=== PATIENT | male | born 1950 | race Caucasian/White ===

== ENCOUNTER 2020-08-17 14:55 | Outpatient (REF) | payer BC, SELFPAY ==
--- NOTE | 2020-08-17 | US_ITS ---
EXAMINATION: US RETROPERITONEAL LIMITED (RENAL ONLY) CLINICAL INFORMATION: Nephrolithiasis. COMPARISON: 02/17/2020 TECHNIQUE: Sonographic evaluation of both kidneys. FINDINGS: RIGHT KIDNEY: 11.4 x 6.4 x 5.6 cm (SAG x AP x TRV). The kidney is normal in size, contour, and echogenicity. Renal cortical thickness is normal. No focal parenchymal lesions. No hydronephrosis. There are 2 midpole calculi identified. These measure 1.1 x 0.5 cm and 0.3 x 0.2 cm. The largest stone appears more prominent than on prior. LEFT KIDNEY: 12.5 x 6.1 x 6.2 cm (SAG x AP x TRV). The kidney is normal in size, contour, and echogenicity. Renal cortical thickness is normal. No calculi. No hydronephrosis. There is an exophytic cyst measuring 2.7 x 2.9 x 2.6 cm. There is peripheral nodularity in the cyst. No Doppler vascularity. US/US renal BI IMPRESSION: 1. Nonobstructing right renal calculi with increased prominence of the larger stone. 2. Left renal cyst again noted, similar in size to prior. There is suggestion of peripheral nodularity without Doppler vascularity. This is a change from prior. Continued attention on follow-up. If clinically indicated this could be further evaluated with MRI..
== END 2020-08-17 14:56 | disposition home or self-care (01) ==
LOC: HO.US 14:55
PROVIDERS: PCP Internal Medicine; Visit Provider Urology
DX: N20.0 Calculus of kidney (principal)
CPT/HCPCS: 76775

== ENCOUNTER → 2020-08-21 09:49 | Outpatient (REF) | payer BC, SELFPAY ==
--- NOTE | 2020-08-21 10:00 | CA_ITS ---
Transthoracic Echocardiogram Patient (Last, First, Middle): Dirk Rosado J Gender: Male Date of : 1950 Age: 70 Procedure Date: 08/21/2020 Procedure Type: Transthoracic Echocardiogram Location: OP Height: 182.88 cm Weight: 99.79 kg BSA: 2.22 m2 Heart Rate: bpm BP: 128 / 80 mmHg Propagation Manager: Referring MD: Alex Dueñas MD Symptoms: I49.1 PAC I49.8 ATRIAL ARRHYTHMIA Study Quality: Fair ECG Rhythm: Sinus with PACs Conclusions: - The left ventricular systolic function is normal. The visually estimated ejection fraction is between 60-65%. - There is mild aortic valve regurgitation. Findings Left Ventricle Normal left ventricular cavity size. There is mildly increased left ventricular wall thickness. The left ventricular systolic function is normal. The visually estimated ejection fraction is between 60-65%. There is no evidence of regional wall motion abnormalities. Diastolic function is normal for age. Right Ventricle Normal right ventricular cavity size and systolic function. Atria The left atrium is mildly dilated. The right atrium is normal in size. Aortic Valve There is a normal trileaflet aortic valve. There is no aortic valve stenosis. There is mild aortic valve regurgitation. Mitral Valve The mitral valve appears normal. There is trace mitral valve regurgitation. There is no mitral valve stenosis. Pulmonic Valve The pulmonic valve was not well visualized. Tricuspid Valve Normal tricuspid valve structure. There is trace tricuspid valve regurgitation. The pulmonary artery systolic pressure is normal. Great Vessels The aortic annulus, sinuses of valsalva, and asc aorta are normal in size. Venous The inferior vena cava is mildly dilated and collapses greater than 50% with inspiration. Pericardium/Pleural There is no evidence of pericardial effusion. Prior Study Comparison No significant change compared to prior study dated: 09/19/2019. Measurements 2D Linear Measurements IVSd: 1.27 0.6-0.9/0.6-1.0 cm LVIDd: 5.16 3.9-5.3/4.2-5.9 cm LVIDd Index: 2.32 2.4-3.2/2.2-3.1 cm/m2 LVIDs: 3.40 2.0-3.6 cm LVPWd: 1.26 0.7-1.1 cm Ao Root: 3.30 2.1-3.5 cm LA Diam: 4.10 2.7-3.8/3.0-4.0 cm LAIDs Index: 1.85 1.5-2.3 cm/m2 LV Mass: 330.06 67-162/88-224 g LV Mass Index: 148.68 43-95/49-115 g/m2 LVOT Diam: 2.20 3.0+(-)1.3 cm 2D Systolic Function EF 4C: 67.20 >55% EF 2C: 47.90 >55% EF BiP: 59.90 >55% Mitral Valve MV Pk E: 0.98 MV PK A: 0.85 MV Decel Time: 253.00 E/A: 1.10 E'Lateral: 12.80 E'Medial: 8.41 E/E' Med: 11.60 E/E' Lat: 7.60 PHT: 74.00 MVA PHT: 2.97 Decel Mcminn: 3.85 Aortic Valve AoV Pk Enrique: 1.63 AoV Mn Enrique: 1.10 AoV VTI: 0.38 AoV Pk Grad: 11.00 Aov Mn Grad: 6.00 NEDRA Cont.VTI: 2.74 LVOT LVOT Pk Enrqiue: 1.14 LVOT Mn Enrique: 0.75 LVOT VTI: 0.28 LVOT Pk Grad: 5.00 LVOT Mn Grad: 3.00 LVOT Diam: 2.20 LVOT Area: 3.80 Diastolic Function MV Pk E: 0.98 MV Pk A: 0.85 E/A: 1.10 E'Medial: 8.41 E/E' Med: 11.60 E' Laterial: 12.80 E/E' Lat: 7.60 Tricuspid Valve TR Pk Enrique: 2.06 TR Pk Grad: 17.00 RA Press: 8.00 RVSP: 25.00 Great Vessels Aorta Ao Root-2D: 3.30 2.0-3.7 cm Ao Asc: 3.30 2.1-3.4 cm Pulmonary Valve PV Pk Enrique: 1.09 Peak PV Grad: 5.00 Updated in Other Vendor System with Status of Final Alex Dueñas MD electronically signed on 08/22/2020 1:44:40 PM with status of Final
--- NOTE | 2020-08-21 11:00 | ECG_ITS ---
Hook-up date: 2020-08-21 11:07:00 Duration: 47:59:00 Test Indications: ATRIAL ARRHYTHMIA Medications: 991017 QRS complexes 18 Ventricular ectopics which represent <1 % of total QRS comp. 87799 Supraventricular ectopics which represent 30 % of total QRS comp. * Paced QRS complexs which represent % of total QRS comp. VENTRICULAR ECTOPY 16 Isolated 0 Bigeminal Cycles 1 Couplets 0 Runs 0 Beats in Runs * Beats LONGEST at * BPM at :: -- * Beats FASTEST at * BPM at :: -- SUPRAVENTRICULAR ECTOPY 01001 Isolated 554 Couplets 642 Runs 2312 Beats in Runs 19 Beats LONGEST at 98 BPM at 10:20:42 2020-08-23 3 Beats FASTEST at 250 BPM at 13:18:45 2020-08-22 HEART RATES 77 MIN at 04:17:41 2020-08-23 89 AVG 122 MAX at 17:02:07 2020-08-21 LONGEST RR 1.0480 secs at 06:10:42 2020-08-23 S-T LEVELS Channel 1 - 128 mm at 11:07:00 2020-08-21 - 128 mm at 11:07:00 2020-08-21 Channel 2 - 128 mm at 11:07:00 2020-08-21 - 128 mm at 11:07:00 2020-08-21 Channel 3 - 128 mm at 03:02:61 -- - 128 mm at 03:02:61 Basic rhythm Normal sinus rhythm No long pause or profound bradycardia Frequent Premature atrial complexes , 30% of total beats Multiple short runs of SVEs s/o of PAT Patient did not report any symptoms in the diary Referred By: Alex Dueñas Overread By: MAYRA TORRES MD
== END ==
LOC: HO.CARD 09:49
PROVIDERS: Visit Provider Internal Medicine
DX: I49.1 Atrial premature depolarization (principal); I49.8 Other specified cardiac arrhythmias
CPT/HCPCS: 93225; 93226; 93306

== ENCOUNTER → 2020-09-07 14:50 | Outpatient (BNVA) | payer BC, SELFPAY | PROVIDERS: PCP Internal Medicine; Referring Provider Internal Medicine; Visit Provider Internal Medicine | DX: I49.8 Other specified cardiac arrhythmias (principal); I10 Essential (primary) hypertension | CPT/HCPCS: 93005 ==

== ENCOUNTER → 2020-09-16 15:02 | Outpatient (BNVA) | payer BC, SELFPAY | PROVIDERS: PCP Internal Medicine; Referring Provider Internal Medicine; Visit Provider Urology | DX: Z76.89 Persons encountering health services in other specified circumstances (principal) ==

== ENCOUNTER → 2021-03-08 13:35 | Outpatient (REF) | payer BC, SELFPAY ==
--- NOTE | 2021-03-08 13:38 | ECG_ITS ---
Hook-up date: 2021-03-08 13:43:00 Duration: 24:56:00 Test Indications: ATRIAL ARRHYTHMIAS- Medications: [id number] QRS complexes 18 Ventricular ectopics which represent <1 % of total QRS comp. 52109 Supraventricular ectopics which represent 40 % of total QRS comp. * Paced QRS complexs which represent % of total QRS comp. VENTRICULAR ECTOPY 18 Isolated 0 Bigeminal Cycles 0 Couplets 0 Runs 0 Beats in Runs * Beats LONGEST at * BPM at :: -- * Beats FASTEST at * BPM at :: -- SUPRAVENTRICULAR ECTOPY 82684 Isolated 96 Couplets 117 Runs 415 Beats in Runs 8 Beats LONGEST at 108 BPM at 15:01:51 2021-03-08 3 Beats FASTEST at 176 BPM at 10:48:30 2021-03-09 HEART RATES 74 MIN at 23:08:54 2021-03-08 93 AVG 136 MAX at 19:21:06 2021-03-08 LONGEST RR 0.9760 secs at 23:09:10 2021-03-08 S-T LEVELS Channel 1 - 128 mm at 13:43:00 2021-03-08 - 128 mm at 13:43:00 2021-03-08 Channel 2 - 128 mm at 13:43:00 2021-03-08 - 128 mm at 13:43:00 2021-03-08 Channel 3 - 128 mm at 03:30:21 -- - 128 mm at 03:30:21 Basic rhythm Normal sinus rhythm No long pause or profound bradycardia Frequent Premature atrial complexes , 41% of total beats Multiple short runs of SVE s/o PAT, Longest 8 beats Patient did not report any symptoms in the diary Referred By: Alex Dueñas Overread By: MAYRA TORRES MD
== END ==
LOC: HO.CARD 13:35
PROVIDERS: Visit Provider Internal Medicine
DX: I49.8 Other specified cardiac arrhythmias (principal)
CPT/HCPCS: 93225; 93226

== ENCOUNTER → 2021-03-23 13:55 | Outpatient (BNVA) | payer BC, SELFPAY | PROVIDERS: PCP Internal Medicine; Referring Provider Internal Medicine; Visit Provider Internal Medicine ==

== ENCOUNTER 2021-04-14 12:45 | Outpatient (REF) | payer BC, SELFPAY ==
--- NOTE | ~2021-04-14 | US_ITS ---
EXAMINATION: US RETROPERITONEAL LIMITED (RENAL ONLY) CLINICAL INFORMATION: Calculus of kidney. COMPARISON: Renal ultrasound 08/17/2020 and 02/17/2020. CT abdomen and pelvis 09/25/2019. TECHNIQUE: Real-time imaging of the kidneys. Technically limited study secondary to bowel gas and body habitus. FINDINGS: RIGHT KIDNEY: 9.5 x 4.4 x 5.3 cm (SAG x AP x TRV). The kidney is normal in size, contour, and echogenicity. There may be right renal cortical thinning. There are several echogenic foci in the lower pole with twinkle artifact questionable for small stones. No focal parenchymal lesions. No hydronephrosis. LEFT KIDNEY: 12.4 x 5.7 x 6.4 cm (SAG x AP x TRV). The kidney is normal in size, contour, and echogenicity. There may be left renal cortical thinning. There is a 3 x 3.3 x 3.2 cm cyst in the midpole. Small focus of wall calcification. This is unchanged. No renal calculi or hydronephrosis. US/US renal BI IMPRESSION: Bilateral renal cortical thinning. Question small right renal stones. Left renal cyst.
== END 2021-04-14 12:46 | disposition home or self-care (01) ==
LOC: HO.US 12:45
PROVIDERS: Visit Provider Urology
DX: N20.0 Calculus of kidney (principal)
CPT/HCPCS: 76775

== ENCOUNTER → 2021-05-12 20:22 | Outpatient (REF) | payer BC, SELFPAY | LOC: HO.SL 20:22 | PROVIDERS: Visit Provider Internal Medicine | DX: G47.33 Obstructive sleep apnea (adult) (pediatric) (principal); I49.8 Other specified cardiac arrhythmias | CPT/HCPCS: 95810 ==

== ENCOUNTER → 2021-05-25 14:15 | Outpatient (BNVA) | payer BC, SELFPAY | PROVIDERS: PCP Internal Medicine; Referring Provider Internal Medicine; Visit Provider Internal Medicine | DX: I49.8 Other specified cardiac arrhythmias (principal); I10 Essential (primary) hypertension; Z79.899 Other long term (current) drug therapy | CPT/HCPCS: 93005 ==

== ENCOUNTER → 2021-06-03 14:51 | Outpatient (BNVA) | payer BC, SELFPAY | PROVIDERS: PCP Internal Medicine; Visit Provider Internal Medicine ==

== ENCOUNTER 2021-06-15 13:37 | Outpatient (REF) | payer BC, SELFPAY ==
--- NOTE | 2021-06-15 17:24 | PFT_ITS ---
FLOWS: FEV1 53% of predicted at 1.87 L. FVC 51% of predicted at 2.45 L. FEV1 to FVC ratio of 0.76. No bronchodilator response except in [id number] airways. LUNG VOLUMES: Total lung capacity 54% of predicted at 4.05 L. Residual volume 61% of predicted at 1.57 L. Slow vital capacity 50% of predicted at 2.48 L. Expiratory reserve volume 28% of predicted at 0.40 L. Diffusion capacity is severely decreased, diffusion capacity adjusted being mildly decreased after correction for alveolar ventilation. In comparison to pulmonary function test performed in August of 2017, FEV1 has decreased by 0.40 L; FVC has decreased by 0.40 L; total lung capacity has decreased by 0.37 L; residual volume has been without significant changes; slow vital capacity has decreased by 0.40 L; expiratory reserve volume has decreased by 0.20 L; diffusion capacity has decreased by 2.48 mL/minutes per mmHg. IMPRESSION: Moderate restrictive ventilatory defect with no bronchodilator response, except in [id number] airways. Decreased expiratory reserve volume suggests extrathoracic restriction, likely secondary to abdominal obesity. Decreased diffusion capacity together with restrictive ventilatory defect suggests underlying interstitial lung disease. Clinical correlation is advised. MD MIKIE Diaz/MODL / [id number] MTDD
== END 2021-06-15 13:38 | disposition home or self-care (01) ==
LOC: HO.RESP 13:37
PROVIDERS: PCP Internal Medicine; Visit Provider Internal Medicine
DX: J98.4 Other disorders of lung (principal); G47.34 Idiopathic sleep related nonobstructive alveolar hypoventilation
CPT/HCPCS: 94060; 94727; 94729

== ENCOUNTER → 2021-06-16 13:11 | Outpatient (BNVA) | payer BC, SELFPAY | PROVIDERS: PCP Internal Medicine; Visit Provider Urology ==

== ENCOUNTER → 2021-07-01 13:47 | Outpatient (BNVA) | payer BC, SELFPAY | PROVIDERS: PCP Internal Medicine; Visit Provider Internal Medicine ==

== ENCOUNTER 2021-10-23 08:13 | Outpatient (REF) | payer BC, SELFPAY ==
[2021-10-23 08:46] LABS: MANUAL DIFF FLAG NO
[2021-10-23 09:46] LABS: Basophils Percent Auto 0.4 % (0-2); Eosinophils Absolute Auto 0.1 X10*3/uL (0.0-0.4); Eosinophils Percent Auto 1.8 % (0-4); Hematocrit 44.1 % (42.0-52.0); Hemoglobin 14.6 g/dl (14.0-18.0); Imm Gran Abs Auto 0.06 X10*3/uL (0.00-0.03); Imm Gran Pct Auto 1.2 % (0.0-0.4); Lymphocytes Absolute Auto 1.4 X10*3/uL (1.2-4.9); Lymphocytes Percent Auto 28.1 % (20-40); Mean Corpuscular HGB Conc 33.1 g/dl (31.0-36.0); Mean Corpuscular Volume 96.7 fL (80.0-98.0); Mean Platelet Volume 9.8 fL (9.4-12.4); Monocytes Absolute Auto 0.5 X10*3/uL (0.1-1.2); Monocytes Percent Auto 10.7 % (2-11); Neutrophils Absolute Auto 2.9 x10*3/uL (2.0-8.3); Neutrophils Percent Auto 57.8 % (45-73); Platelet Count 166 X10*3/uL (160-400); Red Blood Count 4.56 X10*6/uL (4.60-5.80); Red Cell Distribution Width 13.9 % (11.0-16.0)
[2021-10-23 09:57] LABS: B Type Natriuretic Peptide 36 pg/mL (<100)
[2021-10-23 10:15] LABS: Appearance Urine CLEAR; Color Urine YELLOW; Glucose Urine UA NEG (NEG); Leukocyte Esterase Urine TRACE (NEG); Nitrite Urine NEG (NEG); PH 5.5 (5.0-8.0); Specific Gravity - Urine 1.025 (1.005-1.025); Urine Blood NEG (NEG); Urine Ketones NEG (NEG); Urine Protein NEG (NEG-TRACE)
[2021-10-23 10:21] LABS: Uric Acid 10.7 mg/dL (3.4-7.0)
[2021-10-23 10:23] LABS: Alanine Aminotransferase 49 U/L (0-40); Alkaline Phosphatase 71 U/L (39-117); Anion Gap 15 (12-20); Aspartate Amino Transferase 35 U/L (5-37); Bilirubin Total 0.9 mg/dL (0.0-1.0); Blood Urea Nitrogen 13 mg/dL (9-16); Calcium 9.6 mg/dL (8.4-10.2); Carbon Dioxide 22 mmol/L (22-29); Chloride 107 mmol/L (96-108); Cholesterol 181 mg/dL; Estimated Glomerular Filt Rate > 60; Free T4 (Free Thyroxine) 1.01 ng/dL (0.71-1.85); Glucose Random 89 mg/dL (60-115); HDL Cholesterol 78 mg/dL; LDL Cholesterol Calculated 79 mg/dl; Potassium 4.8 mmol/L (3.3-5.1); Prostate Specific Antigen Scr 1.85 ng/mL (<0.05-4.0); Sodium 139 mmol/L (135-145); Thyroid Stimulating Hormone 1.42 uIU/mL (0.32-4.0); Total Protein 7.4 g/dL (6.5-8.0); Triglycerides 123 mg/dL
[2021-10-23 10:32] LABS: Hyaline Casts Urine 0-2 /LPF; RBC Urine 0 /HPF (0)
[2021-10-25 09:24] LABS: Folate 7.7 ng/mL (> or = 4.0); Vitamin B12 646 pg/mL (200-900)
== END 2021-10-23 08:14 | disposition home or self-care (01) ==
LOC: HO.LAB 08:13
PROVIDERS: Visit Provider Internal Medicine
DX: Z12.5 Encounter for screening for malignant neoplasm of prostate (principal); E78.00 Pure hypercholesterolemia, unspecified; I10 Essential (primary) hypertension
CPT/HCPCS: 36415; 80053; 80061; 81001; 82607; 82746; 83880; 84153; 84439; 84443; 84550; 85025

== ENCOUNTER 2021-10-28 10:35 | Outpatient (REF) | payer BC, SELFPAY ==
[2021-10-28 11:03] LABS: MANUAL DIFF FLAG NO
[2021-10-28 11:35] LABS: Basophils Percent Auto 0.5 % (0-2); Eosinophils Absolute Auto 0.1 X10*3/uL (0.0-0.4); Eosinophils Percent Auto 1.2 % (0-4); Hematocrit 43.8 % (42.0-52.0); Hemoglobin 14.6 g/dl (14.0-18.0); Imm Gran Abs Auto 0.07 X10*3/uL (0.00-0.03); Imm Gran Pct Auto 1.1 % (0.0-0.4); Lymphocytes Absolute Auto 1.2 X10*3/uL (1.2-4.9); Lymphocytes Percent Auto 19.3 % (20-40); Mean Corpuscular HGB Conc 33.3 g/dl (31.0-36.0); Mean Corpuscular Hemoglobin 32.3 pg (27.0-33.0); Mean Corpuscular Volume 96.9 fL (80.0-98.0); Mean Platelet Volume 10.1 fL (9.4-12.4); Monocytes Absolute Auto 0.8 X10*3/uL (0.1-1.2); Monocytes Percent Auto 12.4 % (2-11); Neutrophils Absolute Auto 4.2 x10*3/uL (2.0-8.3); Neutrophils Percent Auto 65.5 % (45-73); Platelet Count 177 X10*3/uL (160-400); Red Blood Count 4.52 X10*6/uL (4.60-5.80); Red Cell Distribution Width 14.6 % (11.0-16.0); White Blood Count 6.4 X10*3/uL (4.8-10.8)
[2021-10-28 11:42] LABS: Prothrombin Time 11.1 SEC (9.9-13.0)
[2021-10-28 11:44] LABS: Partial Thromboplastin Time 41.2 SEC (24.1-38.0)
[2021-10-28 12:06] LABS: Alanine Aminotransferase 44 U/L (0-40); Albumin Level 3.8 g/dL (3.5-5.0); Alkaline Phosphatase 67 U/L (39-117); Anion Gap 12 (12-20); Aspartate Amino Transferase 39 U/L (5-37); Blood Urea Nitrogen 15 mg/dL (9-16); Calcium 9.4 mg/dL (8.4-10.2); Carbon Dioxide 24 mmol/L (22-29); Chloride 107 mmol/L (96-108); Estimated Glomerular Filt Rate > 60; Glucose Random 86 mg/dL (60-115); Potassium 4.3 mmol/L (3.3-5.1); Sodium 139 mmol/L (135-145); Total Protein 7.2 g/dL (6.5-8.0)
[2021-10-29 13:00] LABS: Factor VIII Activity 29 % normal (50-180)
[2021-11-01 13:02] LABS: Alpha Fetoprotein 3.3 ng/mL (<6.1)
[2021-11-03 20:26] LABS: HCV Log PCR <1.18 log IU/mL; HepC Viral Load <15 IU/mL
== END 2021-10-28 10:36 | disposition home or self-care (01) ==
LOC: HO.LAB 10:35
PROVIDERS: Absent Provider Internal Medicine Medical Oncology; PCP Internal Medicine; Visit Provider Internal Medicine
DX: D66 Hereditary factor VIII deficiency (principal); B18.2 Chronic viral hepatitis C
CPT/HCPCS: 36415; 80053; 82105; 85025; 85240; 85610; 85730; 87522

== ENCOUNTER → 2021-11-15 12:37 | Outpatient (BNVA) | payer BC, SELFPAY | PROVIDERS: PCP Internal Medicine; Referring Provider Internal Medicine; Visit Provider Surgery ==

== ENCOUNTER → 2021-11-23 12:52 | Outpatient (BNVA) | payer BC, SELFPAY | PROVIDERS: PCP Internal Medicine; Referring Provider Internal Medicine; Visit Provider Internal Medicine ==

== ENCOUNTER 2021-12-06 10:12 | Outpatient (REF) | payer BC, SELFPAY ==
--- NOTE | ~2021-12-06 | US_ITS ---
EXAMINATION: US ABDOMEN COMPLETE CLINICAL INFORMATION: Liver fibrosis. History of hepatitis C. COMPARISON: Renal ultrasound 04/14/2021. CT abdomen and pelvis 09/25/2019. Ultrasound abdomen 01/04/2016. TECHNIQUE: Real-time imaging of the abdominal viscera. FINDINGS: PANCREAS: The head and body appear normal. The tail is obscured by bowel gas. ABDOMINAL AORTA: Obscured by bowel gas. INFERIOR VENA CAVA: Visualized portions are normal. LIVER: The liver is small and nodular. There is diffuse increased liver parenchymal echogenicity, consistent with hepatic steatosis. There is a 2.1 cm hypoechoic lesion adjacent to the gallbladder which was not seen on the prior imaging. This may represent focal fatty sparing but because it is newly apparent the possibility of a liver mass cannot be excluded There is no intrahepatic biliary duct dilatation seen. GALLBLADDER: Cholelithiasis without evidence of cholecystitis. COMMON BILE DUCT: Obscured by bowel gas. RIGHT KIDNEY: Normal. No hydronephrosis. No renal calculi or focal parenchymal lesions. The kidney measures 11.0 cm in maximum dimension. LEFT KIDNEY: 2.4 cm cyst with thin calcified septation in the mid kidney which is unchanged compared to prior CT scan. No hydronephrosis or renal calculi. The kidney measures 12.6 cm in maximum dimension. SPLEEN: Normal. The spleen measures 12.0 cm in maximum dimension. FREE FLUID: None. US/US abdomen complete IMPRESSION: Cirrhotic liver with findings consistent with steatosis. New 2.1 cm hypoechoic lesion adjacent to the gallbladder which was not seen on prior imaging. It may represent focal fatty sparing but cannot exclude a liver mass in the setting of cirrhosis. Recommend further evaluation with liver protocol multiphasic CT or MRI abdomen without and with contrast.
== END 2021-12-06 10:13 | disposition home or self-care (01) ==
LOC: HO.US 10:12
PROVIDERS: PCP Internal Medicine; Visit Provider Internal Medicine
DX: K74.00 Hepatic fibrosis, unspecified (principal); Z86.19 Personal history of other infectious and parasitic diseases
CPT/HCPCS: 76700

== ENCOUNTER → 2021-12-14 08:12 | Outpatient (BNVA) | payer BC, SELFPAY | PROVIDERS: PCP Internal Medicine; Visit Provider Urology | DX: N20.0 Calculus of kidney (principal); N40.0 Benign prostatic hyperplasia without lower urinary tract symptoms | CPT/HCPCS: Q3014 ==

== ENCOUNTER 2021-12-14 11:46 | Outpatient (REF) | payer BC, SELFPAY | END 2021-12-14 11:47 | disposition home or self-care (01) | LOC: HO.MDS 11:46 | PROVIDERS: Visit Provider Internal Medicine Medical Oncology | DX: D66 Hereditary factor VIII deficiency (principal) | CPT/HCPCS: 96365; J2597 ==

== ENCOUNTER 2021-12-21 10:45 | Outpatient (REF) | payer BC, SELFPAY ==
--- NOTE | ~2021-12-21 | MR_ITS ---
EXAMINATION: MR ABDOMEN WITHOUT AND WITH CONTRAST CLINICAL INFORMATION: Hepatitis C. Followup liver lesion seen on ultrasound. COMPARISON: Previous abdominal ultrasound November [address] of the abdomen and pelvis September 2019 TECHNIQUE: MR abdomen was performed without and with use of 10 mL intravenous Gadavist gadolinium contrast. Postcontrast images are performed in multiphase dynamic sequences. Imaging was performed in 3 planes. FINDINGS: LUNG BASES: The visualized lung bases are unremarkable. LIVER, GALLBLADDER, AND BILIARY TREE: The liver is normal in size and shape. There is slight signal loss in the liver on [id number] sequences suggestive of mild fatty infiltration. No focal liver lesion is seen. There are gallstones in the gallbladder. There is no intrahepatic or extrahepatic biliary duct dilatation. PANCREAS: Unremarkable. SPLEEN: Upper normal in size measuring 12.5 cm in length. ADRENAL GLANDS: Normal. KIDNEYS AND URETERS: There is a 3 cm left renal cyst. The kidneys are otherwise unremarkable. GASTROINTESTINAL TRACT: No bowel obstruction. No ascites or fluid collection. ABDOMINAL WALL: There is a large right lateral abdominal wall hernia containing bowel. LYMPH NODES: No lymphadenopathy. VASCULAR: Unremarkable. OSSEOUS STRUCTURES: There are degenerative changes of the spine. There are old lower thoracic vertebral body compression fractures. This appears similar to September [address] scan. MR/MR abdomen wo/w con IMPRESSION: Mild fatty infiltration of the liver. No liver lesion seen. Gallstones. Left renal cysts. Large right lateral abdominal wall hernia containing bowel.
[2021-12-21 10:43] LABS: Blood Urea Nitrogen 10 mg/dL (9-16); Estimated Glomerular Filt Rate > 60
== END 2021-12-21 10:46 | disposition home or self-care (01) ==
LOC: HO.MRI 10:45
PROVIDERS: Visit Provider Internal Medicine
DX: R93.2 Abnormal findings on diagnostic imaging of liver and biliary tract (principal); Z86.19 Personal history of other infectious and parasitic diseases
CPT/HCPCS: 36415; 74183; 82565; 84520; A9585

== ENCOUNTER → 2022-01-03 13:53 | Outpatient (BNVA) | payer BC, SELFPAY | PROVIDERS: PCP Internal Medicine; Visit Provider Internal Medicine | DX: R06.00 Dyspnea, unspecified (principal); J98.4 Other disorders of lung; G47.34 Idiopathic sleep related nonobstructive alveolar hypoventilation; E66.9 Obesity, unspecified ==

== ENCOUNTER → 2022-04-05 07:04 | Outpatient (REF) | payer BC, SELFPAY ==
--- NOTE | 2022-04-05 07:08 | HM_ITS ---
Conclusion: 1. Patient was monitored for total period of 3 days and 3 hours 2. Baseline rhythm was normal sinus rhythm with average heart of 89 beats per minute 3. No significant pauses or bradycardia noted 4. Three episodes of short burst of supraventricular tachycardia with longest lasting 7 beats 5. Total of 504 PVCs accounting for 0.13% of total beats accounting for occasional PVCs 6. No patient reported events MTDD
== END ==
LOC: HO.CARD 07:04
PROVIDERS: PCP Internal Medicine; Visit Provider Internal Medicine
DX: I49.8 Other specified cardiac arrhythmias (principal)
CPT/HCPCS: 93242

== ENCOUNTER 2022-05-23 08:44 | Outpatient (REF) | payer BC, SELFPAY ==
[2022-05-23 09:00] LABS: MANUAL DIFF FLAG NO
[2022-05-23 09:25] LABS: Basophils Percent Auto 0.7 % (0-2); Eosinophils Absolute Auto 0.2 X10*3/uL (0.0-0.4); Eosinophils Percent Auto 3.1 % (0-4); Hematocrit 42.8 % (42.0-52.0); Hemoglobin 14.4 g/dl (14.0-18.0); Imm Gran Abs Auto 0.04 X10*3/uL (0.00-0.03); Imm Gran Pct Auto 0.7 % (0.0-0.4); Lymphocytes Absolute Auto 1.4 X10*3/uL (1.2-4.9); Lymphocytes Percent Auto 24.4 % (20-40); Mean Corpuscular HGB Conc 33.6 g/dl (31.0-36.0); Mean Corpuscular Hemoglobin 32.5 pg (27.0-33.0); Mean Corpuscular Volume 96.6 fL (80.0-98.0); Mean Platelet Volume 9.6 fL (9.4-12.4); Monocytes Absolute Auto 0.6 X10*3/uL (0.1-1.2); Monocytes Percent Auto 10.3 % (2-11); Neutrophils Absolute Auto 3.5 x10*3/uL (2.0-8.3); Neutrophils Percent Auto 60.8 % (45-73); Platelet Count 143 X10*3/uL (160-400); Red Blood Count 4.43 X10*6/uL (4.60-5.80); Red Cell Distribution Width 14.1 % (11.0-16.0); White Blood Count 5.8 X10*3/uL (4.8-10.8)
[2022-05-23 09:38] LABS: Appearance Urine Clear; Color Urine Dark Yellow; Glucose Urine UA Negative (Negative); Leukocyte Esterase Urine Negative (Negative); Nitrite Urine Negative (Negative); PH 5.5 (5.0-8.0); Specific Gravity - Urine 1.015 (1.005-1.025); Urine Blood Negative (Negative); Urine Ketones Trace mg/dL (Negative); Urine Protein Negative (Neg-Trace)
[2022-05-23 09:44] LABS: Bacteria Urine None Seen (None Seen); Hyaline Casts Urine 0-2 /LPF (0-2); RBC Urine 0-2 /HPF (0-2); Squamous Epithelial Cell Urine 0-2 /HPF (0-2); WBC Urine 0-5 /HPF (0-5)
[2022-05-23 09:51] LABS: Alanine Aminotransferase 41 U/L (0-40); Alkaline Phosphatase 55 U/L (39-117); Anion Gap 18 (12-20); Aspartate Amino Transferase 42 U/L (5-37); Bilirubin Total 1.2 mg/dL (0.0-1.0); Blood Urea Nitrogen 11 mg/dL (9-16); Calcium 9.3 mg/dL (8.4-10.2); Carbon Dioxide 23 mmol/L (22-29); Chloride 105 mmol/L (96-108); Cholesterol 182 mg/dL; Estimated Glomerular Filt Rate > 60; Glucose Random 89 mg/dL (60-115); HDL Cholesterol 87 mg/dL; LDL Cholesterol Calculated 78 mg/dl; Potassium 4.5 mmol/L (3.3-5.1); Sodium 141 mmol/L (135-145); Total Protein 7.2 g/dL (6.5-8.0); Triglycerides 85 mg/dL
[2022-05-23 10:10] LABS: Free T4 (Free Thyroxine) 0.97 ng/dL (0.71-1.85); Prostate Specific Antigen Scr 1.75 ng/mL (<0.05-4.0); Thyroid Stimulating Hormone 1.58 uIU/mL (0.32-4.0)
[2022-05-23 10:26] LABS: Folate 5.8 ng/mL (> or = 4.0); Vitamin B12 650 pg/mL (200-900)
== END 2022-05-23 08:45 | disposition home or self-care (01) ==
LOC: HO.LAB 08:44
PROVIDERS: PCP Internal Medicine; Visit Provider Internal Medicine
DX: Z12.5 Encounter for screening for malignant neoplasm of prostate (principal); I49.8 Other specified cardiac arrhythmias; I10 Essential (primary) hypertension; E66.9 Obesity, unspecified; E78.00 Pure hypercholesterolemia, unspecified
CPT/HCPCS: 36415; 80053; 80061; 81001; 82607; 82746; 84153; 84439; 84443; 85025; 93005

== ENCOUNTER 2022-06-02 09:50 | Outpatient (REF) | payer BC, SELFPAY ==
--- NOTE | ~2022-06-02 | US_ITS ---
EXAMINATION: US RETROPERITONEAL LIMITED (RENAL ONLY) CLINICAL INFORMATION: Calculus of kidney. COMPARISON: MRI abdomen 12/21/2021. Ultrasound abdomen complete 12/06/2021. Renal ultrasound 04/14/2021. TECHNIQUE: Real-time imaging of the kidneys. FINDINGS: RIGHT KIDNEY: 11.1 x 6.0 x 5.8 cm (SAG x AP x TRV). The kidney is normal in size, contour, and echogenicity. There is renal cortical thinning present. No focal parenchymal lesions or hydronephrosis. There are numerous echogenic foci some which appear to be related to vessel artifact but some contain twinkle artifact consistent with renal calculi. In the midpole region there appears be a 4 mm nonobstructing calculus. Within the midpole there also appears to be a 9 mm nonobstructing calculus. LEFT KIDNEY: 12.1 x 6.4 x 6.0 cm (SAG x AP x TRV). The kidney is normal in size, contour, and echogenicity. There is renal cortical thinning present. No hydronephrosis. Within the lower pole there is a 4 mm nonobstructing calculus. Within the interpolar region there is a 2.3 x 2.7 x 2.6 cm cyst with thin wall calcification. No internal vascularity is appreciated. This has the appearance of a Bosniak 2 cyst. US/US renal BI IMPRESSION: Bilateral cortical thinning. Bilateral nephrolithiasis without obstructive uropathy. Bosniak 2 left renal cyst.
== END 2022-06-02 09:51 | disposition home or self-care (01) ==
LOC: HO.US 09:50
PROVIDERS: Visit Provider Urology
DX: N20.0 Calculus of kidney (principal)
CPT/HCPCS: 76775

== ENCOUNTER 2022-07-18 12:46 | Emergency (ER) | payer BC, SELFPAY ==
--- NOTE | ~2022-07-18 | US_ITS ---
EXAMINATION: US VENOUS ULTRASOUND WITH DOPPLER LOWER EXTREMITY, RIGHT CLINICAL INFORMATION: Swelling, right leg pain from knee distally. Assess for occult DVT. COMPARISON: Right leg venous ultrasound 07/15/2017, 07/09/2017 TECHNIQUE: Ultrasound of the deep veins is performed from the hip to the calf with compression sonography and color and pulse Doppler assessment. Spectral analysis with color-flow imaging is performed. FINDINGS: There is normal venous compression and respiratory variation and augmented flow. The visualized common femoral vein, superficial femoral vein, profunda femoral vein, popliteal vein, and the trifurcation region shows no evidence of deep venous thrombosis. There is a popliteal fossa cyst measuring 4.9 x 0.8 x 3.6 cm. Prior measurements are 4.4 x 1.6 x 2.2 cm.. There is a smaller septated cyst in the calf slightly more distal again noted measuring 3.5 x 1.4 x 2.1 cm. Prior measurements 3.7 x 1.6 x 2.8 cm. US/US venous duplex LE RT IMPRESSION: 1. No DVT demonstrated in the right lower extremity. 2. Popliteal fossa cyst 4.9 x 0.8 x 3.6 cm. Prior measurements 4.4 x 1.6 x 2.2 cm. 3. Smaller septated cyst 3.5 x 1.4 x 2.1 cm. Prior measurements 3.7 x 1.6 x 2.8 cm.
[2022-07-18 14:15] VITALS: BP 149/88; PULSE 83; RESP 18; TEMP 36.8; O2SAT 95; BMI 29.8
[2022-07-18 14:52] LABS: MANUAL DIFF FLAG NO
[2022-07-18 14:56] LABS: Basophils Percent Auto 0.6 % (0-2); Eosinophils Absolute Auto 0.1 X10*3/uL (0.0-0.4); Eosinophils Percent Auto 1.7 % (0-4); Hematocrit 39.6 % (42.0-52.0); Hemoglobin 13.6 g/dl (14.0-18.0); Imm Gran Abs Auto 0.05 X10*3/uL (0.00-0.03); Imm Gran Pct Auto 0.8 % (0.0-0.4); Lymphocytes Absolute Auto 1.1 X10*3/uL (1.2-4.9); Lymphocytes Percent Auto 17.2 % (20-40); Mean Corpuscular HGB Conc 34.3 g/dl (31.0-36.0); Mean Corpuscular Hemoglobin 33.7 pg (27.0-33.0); Mean Corpuscular Volume 98.3 fL (80.0-98.0); Mean Platelet Volume 9.2 fL (9.4-12.4); Monocytes Absolute Auto 0.8 X10*3/uL (0.1-1.2); Monocytes Percent Auto 12.1 % (2-11); Neutrophils Absolute Auto 4.4 x10*3/uL (2.0-8.3); Neutrophils Percent Auto 67.6 % (45-73); Platelet Count 202 X10*3/uL (160-400); Red Blood Count 4.03 X10*6/uL (4.60-5.80); Red Cell Distribution Width 14.2 % (11.0-16.0); White Blood Count 6.5 X10*3/uL (4.8-10.8)
[2022-07-18 15:07] LABS: Anion Gap 17 (12-20); Blood Urea Nitrogen 10 mg/dL (9-16); Calcium 9.4 mg/dL (8.4-10.2); Carbon Dioxide 23 mmol/L (22-29); Chloride 103 mmol/L (96-108); Estimated Glomerular Filt Rate > 60; Glucose Random 89 mg/dL (60-115); Potassium 4.8 mmol/L (3.3-5.1); Sodium 138 mmol/L (135-145)
[2022-07-18 15:16] LABS: Prothrombin Time 11.8 SEC (10.0-13.1)
--- NOTE | 2022-07-18 17:02 | ED_ITS ---
HPI - Extremity Problem General Chief complaint: Extremity Problem Stated complaint: R leg inj Time Seen by Provider: 07/18/22 16:39 Source: patient Mode of arrival: ambulatory Limitations: no limitations History of Present Illness HPI Narrative: Patient comes to the emergency room complaining of right lower extremity pain and swelling for about 1 week. Patient states that right before his leg started turning erythematous and started becoming swollen, patient sustained a fall. Patient states that he fell forward. Patient has multiple bruises from the fall but he has no other injuries. Patient had a few abrasions on the forehead but they healed well. Patient denies any fever, no chills, no chest pain or shortness of breath. Related Data Home Medications Medication Instructions Recorded Confirmed calcium carbonate 600 mg-vitamin 1 tab PO DAILY 08/03/20 06/17/22 D3 5 mcg (200 unit) tablet (Calcium 600 + D(3)) cyanocobalamin (vitamin B-12) 250 250 mcg PO DAILY 08/03/20 06/17/22 mcg lozenges lisinopril 5 mg tablet 5 mg PO DAILY 08/03/20 06/17/22 Previous Rx's Medication Instructions Recorded nystatin 100,000 unit/gram topical See Rx Instructions topical BID 10/21/21 powder #60 grams lorazepam 0.5 mg tablet 0.5 mg PO BEDTIME PRN sedation 30 04/20/22 days #14 tabs potassium citrate 10 mEq (1,080 20 meq PO BID 90 days #360 tabs 06/17/22 mg) tablet,extended release pyridoxine (vitamin B6) 100 mg 100 mg PO DAILY 90 days #90 tabs 06/17/22 tablet cephalexin 500 mg capsule 500 mg PO BID #13 caps 07/18/22 doxycycline hyclate 100 mg capsule 100 mg PO BID #13 caps 07/18/22 metoprolol succinate 25 mg 25 mg PO DAILY #90 tabs 07/18/22 tablet,extended release 24 hr tramadol 50 mg tablet 50 mg PO BID PRN pain #7 tabs 07/18/22 Allergies Allergy/AdvReac Type Severity Reaction Status Date / Time No Known Allergies Allergy Verified 06/17/22 11:12 Review of Systems Review of Systems: Constitutional : No Weight loss, No Fever, No Chills, No Night Sweats, No Fatigue, No Malaise ENT/Mouth : No Hearing loss, No Ear Pain, No Nasal Congestion, No Sinus Pain, No Hoarseness, No sore throat, No Rhinorrhea, No Swallowing Difficulty Eyes: No Eye Pain, No Swelling, No Redness, No Foreign Body, No Discharge, No Vision Changes Cardiovascular : No Chest Pain, No SOB, No Dyspnea on Exertion, No Orthopnea, No Edema, No Palpitations Respiratory : No Cough, No Sputum, No Wheezing, No Smoke Exposure, No Dyspnea Gastrointestinal : No Nausea, No Vomiting, No Diarrhea, No Constipation, No abdominal Pain, No Hematochezia, No Melena Genitourinary : no irregular bleeding, No Dysuria, No Urinary Frequency, No Hematuria, No Urinary Incontinence, No Urgency, No Flank Pain, No Urinary Flow Changes, No Hesitancy Musculoskeletal : No joint pain, No Myalgias, No Joint Swelling Skin : Complaining of right lower extremity pain and swelling from ankle to the knee Neuro : No Weakness, No Numbness, No Paresthesias, No Loss of Consciousness, No Dizziness, No Headache Psych : No Anxiety/Panic, No Depression, No SI/HI/AH/VH, No Social Issues, Heme/Lymph: No Bruising, No Bleeding,No Lymphadenopathy Endocrine : No Polyuria, No Polydipsia, No Temperature Intolerance PMFSH Past Medical History Medical History Atrial arrhythmia Loja cyst BPH (benign prostatic hyperplasia) Cholelithiasis Crohn's disease Dyspnea on exertion Essential hypertension Gout Hemophilia History of cataract History of hepatitis C Nocturnal hypoxemia Obesity (BMI 30-39.9) Obesity (BMI 30-39.9) Osteopenia Parastomal hernia Peripheral vascular disease Renal stones Restrictive lung disease Thrombocytopenia Surgical History H/O tooth extraction H/O wrist surgery History of appendectomy History of cataract surgery History of urethral stent Family History Family History Father Prostate cancer Mother Diabetes Maternal Grandfather Factor VIII deficiency hemophilia Social History Social History Household Members: Spouse Housing: House Are you a primary assisted living care manager to a significant other at home: No Do you presently have visiting nurse or other home services: No Alcohol intake: never Patient Tobacco Use Status: Never used Tobacco e-Cigarette/Vaping Use: Never Used Second Hand Smoke Exposure: No Advance Directives: No Advance Directives Information Provided: No service: No Current occupational status: retired Cognitive needs: No Hearing needs: No Vision needs: Yes Physical Exam Vital Signs: Vital Signs: Last Vital Signs Temp 98.2 F 07/18/22 14:15 Pulse 83 07/18/22 14:15 Resp 18 07/18/22 14:15 BP 149/88 H 07/18/22 14:15 Pulse Ox 95 07/18/22 14:15 O2 Del Method 07/18/22 14:15 BMI result Body Mass Index 29.8 Const: Other: Appearance: Alert. Oriented X3. No acute distress. Eyes: Pupils equal, round and reactive to light. ENT: Pharynx normal. Neck: Normal inspection. Neck supple. No lymph nodes noted. No crepitus CVS: Normal heart rate and rhythm. Pulses normal. Normal S1 and S2 Respiratory: No respiratory distress. Breath sounds normal. No Wheezing. No rales Abdomen: Soft and nontender. No rigidity. No distention. Skin: Skin warm and dry. Normal skin color. Normal skin turgor. Extremities: Patient has bilateral pitting edema +2, right lower extremity is more swollen than the right, [id number] erythema goes from the ankle to below the right knee, no oozing. Neuro: Oriented X 3. No motor deficit. No sensory deficit. Moving all extremities. No slurred speech. CN 2 through 12 grossly intact Psych: calm, cooperative, normal affect Course Course Course Narrative: Venous of blood cultures done is negative for DVT. Patient is aware of the Loja cyst that has been seen on ultrasound previously. Patient's white blood cell count is within normal limits, normal blood pressure, no fever, not tachycardic. Sepsis is not suspected. I discussed with the patient that he likely has cellulitis. Patient was given the 1st dose of Keflex and doxycycline in the ED. I discussed with the patient that if the p.o. antibiotic does not work or if there are any worsening changes, he needs to return immediately to the emergency room. MDM - Extremity (Nontraumatic) Lab Data Result diagrams: 07/18/22 14:46 07/18/22 14:46 Labs: Lab Results 07/18/22 07/18/22 07/18/22 Range/Units 14:46 14:46 14:46 WBC 6.5 (4.8-10.8) X10*3/uL RBC 4.03 L (4.60-5.80) X10*6/uL Hgb 13.6 L (14.0-18.0) g/dl Hct 39.6 L (42.0-52.0) % MCV 98.3 H (80.0-98.0) fL MCH 33.7 H (27.0-33.0) pg MCHC 34.3 (31.0-36.0) g/dl RDW 14.2 (11.0-16.0) % Plt Count 202 D (160-400) X10*3/uL MPV 9.2 L (9.4-12.4) fL Immature Gran % (Auto) 0.8 H (0.0-0.4) % Neut % (Auto) 67.6 (45-73) % Lymph % (Auto) 17.2 L (20-40) % Harlan % (Auto) 12.1 H (2-11) % Eos % (Auto) 1.7 (0-4) % Baso % (Auto) 0.6 (0-2) % Lymph # (Auto) 1.1 L (1.2-4.9) X10*3/uL Harlan # (Auto) 0.8 (0.1-1.2) X10*3/uL Eos # (Auto) 0.1 (0.0-0.4) X10*3/uL Baso # (Auto) 0.0 (0.0-0.2) X10*3/uL Abs Immat Gran (auto) 0.05 H (0.00-0.03) X10*3/uL Absolute Neuts (auto) 4.4 (2.0-8.3) x10*3/uL Absolute Nucleated RBC 0.000 (0.0-0.012) X10*3/uL Nucleated RBC % (auto) 0.0 (0.0-0.2) /100WBC PT 11.8 (10.0-13.1) SEC INR 1.0 (0.9-1.1) APTT 43.0 H (26.0-36.4) SEC Sodium 138 (135-145) mmol/L Potassium 4.8 (3.3-5.1) mmol/L Chloride 103 (96-108) mmol/L Carbon Dioxide 23 (22-29) mmol/L Anion Gap 17 (12-20) BUN 10 (9-16) mg/dL Creatinine 1.05 (0.5-1.4) mg/dL Estim Creat Clear Calc 80.0 Estimated GFR > 60 Random Glucose 89 (60-115) mg/dL Calcium 9.4 (8.4-10.2) mg/dL Imaging Data Venous US: Radiologist's impression: TECHNIQUE: Ultrasound of the deep veins is performed from the hip to the calf with compression sonography and color and pulse Doppler assessment. Spectral analysis with color-flow imaging is performed. FINDINGS: There is normal venous compression and respiratory variation and augmented flow. The visualized common femoral vein, superficial femoral vein, profunda femoral vein, popliteal vein, and the trifurcation region shows no evidence of deep venous thrombosis. There is a popliteal fossa cyst measuring 4.9 x 0.8 x 3.6 cm. Prior measurements are 4.4 x 1.6 x 2.2 cm.. There is a smaller septated cyst in the calf slightly more distal again noted measuring 3.5 x 1.4 x 2.1 cm. Prior measurements 3.7 x 1.6 x 2.8 cm. US/US venous duplex LE RT IMPRESSION: 1. No DVT demonstrated in the right lower extremity. 2. Popliteal fossa cyst 4.9 x 0.8 x 3.6 cm. Prior measurements 4.4 x 1.6 x 2.2 cm. 3. Smaller septated cyst 3.5 x 1.4 x 2.1 cm. Prior measurements 3.7 x 1.6 x 2.8 cm. Discharge Plan Discharge Clinical Impression: Cellulitis of right lower leg Patient Disposition: Home, Self-Care Instructions: Cellulitis (ED) Additional Instructions: Please follow-up with your primary care physician tomorrow. If you have any worsening or new symptoms, please return to the emergency room or call 911 Prescriptions: New cephalexin 500 mg capsule 500 mg PO BID Qty: 13 0RF doxycycline hyclate 100 mg capsule 100 mg PO BID Qty: 13 0RF tramadol 50 mg tablet 50 mg PO BID PRN (Reason: pain) Qty: 7 0RF No Action potassium citrate 10 mEq (1,080 mg) tablet extended release 20 meq PO BID 90 Days Qty: 360 3RF metoprolol succinate 25 mg tablet extended release 24 hr 25 mg PO DAILY Qty: 90 3RF lisinopril 5 mg tablet 5 mg PO DAILY calcium carbonate-vitamin D3 [Calcium 600 + D(3)] 600 mg(1,500mg) -200 unit tablet 1 tab PO DAILY cyanocobalamin (vitamin B-12) 250 mcg lozenge 250 mcg PO DAILY nystatin 100,000 unit/gram powder See Rx Instructions topical BID Qty: 60 11RF Rx Instructions: apply to ileostomy site topical 2 times a day; lorazepam 0.5 mg tablet 0.5 mg PO BEDTIME PRN (Reason: sedation) 30 Days Qty: 14 0RF pyridoxine (vitamin B6) 100 mg tablet 100 mg PO DAILY 90 Days Qty: 90 3RF
[2022-07-18] MEDS: cephALEXin 500 MG CAPSULE PO (17:11)
--- NOTE | 2022-07-18 17:15 | PC.NURSE ---
First dose of ab administered to pt. Discharge instructions provided to pt. Pt verbalizes understanding.
== END 2022-07-18 17:16 | disposition home or self-care (01) ==
PROVIDERS: Emergency Provider Emergency Medicine; PCP Internal Medicine
DX: L03.115 Cellulitis of right lower limb (principal); M79.661 Pain in right lower leg; R60.0 Localized edema; M71.21 Synovial cyst of popliteal space [Baker], right knee; I10 Essential (primary) hypertension; Z79.899 Other long term (current) drug therapy
CPT/HCPCS: 36415; 80048; 85025; 85610; 85730; 93971; 99283; 99284

== ENCOUNTER 2022-08-03 11:07 | Inpatient (IN) | payer BC, MEDICARE, SELFPAY ==
--- NOTE | ~2022-08-03 | US_ITS ---
EXAMINATION: US VENOUS ULTRASOUND WITH DOPPLER LOWER EXTREMITY, RIGHT CLINICAL INFORMATION: Right leg pain and swelling COMPARISON: 07/18/2022 TECHNIQUE: Ultrasound of the deep veins is performed from the hip to the calf with compression sonography and color and pulse Doppler assessment. Spectral analysis with color-flow imaging is performed. FINDINGS: There is normal venous compression and respiratory variation and augmented flow. The visualized common femoral vein, superficial femoral vein, profunda femoral vein, popliteal vein, and the trifurcation region shows no evidence of deep venous thrombosis. Two Loja's cysts are present measuring 4.5 x 1.1 x 1.3 cm and 2.2 x 0.6 x 1.7 cm . If the patient's symptoms persist, followup ultrasound in 5 days 7 days might be of value to exclude proximal propagation from a non-visualized calf vein. US/US venous duplex LE RT IMPRESSION: No DVT demonstrated in the right lower extremity. Popliteal cysts as described above. No interval change when compared to 07/18/2022.
--- NOTE | ~2022-08-03 | XR_ITS ---
EXAMINATION: XR KNEE, RIGHT CLINICAL INFORMATION: Right knee pain status post fall, weeks ago. COMPARISON: None TECHNIQUE: Four views of the right knee. FINDINGS: Mild tricompartmental degenerative joint changes are seen with joint space narrowing most pronounced in the medial femoral-tibial compartment. There is no acute fracture, dislocation or joint effusion. Mild prepatellar soft tissue swelling. Moderate to severe atherosclerosis. XR/XR knee RT 4V IMPRESSION: Mild degenerative joint changes most consistent with osteoarthritis. No acute abnormality.
--- NOTE | ~2022-08-03 | CT_ITS ---
EXAMINATION: CT ANGIOGRAM BILATERAL CLINICAL INFORMATION: Right lower extremity pain after trauma COMPARISON: None TECHNIQUE: 80 mL Omnipaque 350 intravenous contrast was utilized. Multidetector helical imaging was performed through the bilateral lower extremities per CTA protocol. Coronal and sagittal reformatted images were created along with MIP images. This CT examination was performed using dose optimization techniques as appropriate, variously including the following: *Automated exposure control *Adjustment of mA and/or kV according to patient size (this includes techniques or standardized protocols for targeted exams where dose is matched to indication/reason for exam; i.e. extremities or head) *Use of iterative reconstruction technique DLP: 549 mGy-cm FINDINGS: Abdominal vasculature: Included portion of the aorta is unremarkable. Imaged portion of the superior mesenteric artery is patent. Bilateral renal arteries are patent. Inferior mesenteric artery appears patent proximally though is not well opacified beginning shortly beyond its origin. Right lower extremity vasculature: The common, internal, and external iliac arteries are patent with peripheral calcification most prominently along the internal carotid artery. Right common femoral artery is patent. There is circumferential calcification along much of the deep femoral artery branches, though these appear patent. Superficial femoral artery appears patent, with moderate to severe circumferential calcification. Popliteal artery is patent with moderate peripheral calcification. There is limited evaluation for patency of the runoff vessels in the calf due to significant circumferential calcification in the small caliber of the vessels. There does appear to be opacification of vessels in the foot, suggesting patent anterior and posterior tibial arteries. The peroneal artery appears diminutive as it reaches the ankle and is not adequately assessed distally. Left lower extremity vasculature: Patent common, internal, and external iliac arteries with peripheral calcification most prominently along the external iliac artery. Common femoral artery is patent. Moderate circumferential calcification along the deep femoral artery branches, though these do appear patent. Circumferential calcification noted along much of the superficial femoral artery, though patency appears preserved. Popliteal artery appears patent with moderate circumferential calcification. There is extensive circumferential calcification along the calf vessels which limits evaluation for patency. There is suspected patency of vessels in the foot suggesting that there is preservation of flow in the anterior and posterior tibial arteries. The peroneal artery is diminutive and not well assessed as it approaches the ankle. Nonvascular structures: Subcutaneous edema is noted in the mid to distal right thigh and circumferentially throughout the calf. Milder subcutaneous edema is seen throughout the left calf. No acute fracture is seen. Bilateral popliteal fossa cysts noted, measuring up to 4.1 cm on the left and 5.1 cm on the right in craniocaudal dimension. Gallstones are suspected in the partially visualized gallbladder fundus. Left renal cyst noted; no follow-up recommended. Coarse calcifications noted in the prostate gland. Right lower quadrant ostomy noted with associated parastomal hernia. Included bowel gas pattern is nonobstructive. CT/CT angio LE BI IMPRESSION: 1. Extensive circumferential calcification throughout the bilateral lower extremities. Evaluation for patency of the calf vessels is limited due to extensive circumferential calcification and small caliber of the vessels, although there does appear to be opacification of vessels in the feet, suggesting patent anterior and posterior tibial arteries bilaterally. 2. Subcutaneous edema in the mid to distal right thigh and circumferentially throughout the right calf. Milder subcutaneous edema throughout the left calf. 3. Bilateral popliteal fossa cysts. 4. Right lower quadrant ostomy with associated parastomal hernia.
[2022-08-03 11:50] VITALS: BP 142/70; PULSE 89; RESP 18; TEMP 36.6; O2SAT 98; BMI 29.8
[2022-08-03 14:09] LABS: MANUAL DIFF FLAG NO
[2022-08-03 14:11] LABS: Basophils Percent Auto 0.6 % (0-2); Eosinophils Absolute Auto 0.1 X10*3/uL (0.0-0.4); Eosinophils Percent Auto 1.6 % (0-4); Hematocrit 43.5 % (42.0-52.0); Hemoglobin 14.3 g/dl (14.0-18.0); Imm Gran Abs Auto 0.02 X10*3/uL (0.00-0.03); Imm Gran Pct Auto 0.3 % (0.0-0.4); Lymphocytes Absolute Auto 1.4 X10*3/uL (1.2-4.9); Lymphocytes Percent Auto 21.8 % (20-40); Mean Corpuscular HGB Conc 32.9 g/dl (31.0-36.0); Mean Corpuscular Hemoglobin 32.5 pg (27.0-33.0); Mean Corpuscular Volume 98.9 fL (80.0-98.0); Monocytes Absolute Auto 0.7 X10*3/uL (0.1-1.2); Monocytes Percent Auto 10.8 % (2-11); Neutrophils Absolute Auto 4.1 x10*3/uL (2.0-8.3); Neutrophils Percent Auto 64.9 % (45-73); Platelet Count 171 X10*3/uL (160-400); Red Cell Distribution Width 13.5 % (11.0-16.0); White Blood Count 6.3 X10*3/uL (4.8-10.8)
[2022-08-03 14:21] LABS: Lactic Acid 1.8 mmol/L (0.5-2.0)
[2022-08-03 14:25] LABS: Anion Gap 18 (12-20); Blood Urea Nitrogen 10 mg/dL (9-16); Calcium 9.1 mg/dL (8.4-10.2); Carbon Dioxide 25 mmol/L (22-29); Chloride 101 mmol/L (96-108); Creatinine Clr Calc Pharmacy 70.6; Estimated Glomerular Filt Rate > 60; Glucose Random 88 mg/dL (60-115); Potassium 4.4 mmol/L (3.3-5.1); Sodium 140 mmol/L (135-145)
[2022-08-03 19:57] VITALS: BP 177/81; PULSE 83; RESP 16; TEMP 36.6; O2SAT 98
[2022-08-03 21:06] VITALS: BP 157/75; PULSE 90; RESP 14; TEMP 37.1; O2SAT 96
--- NOTE | 2022-08-03 21:49 | ED.EXTPRO ---
HPI - Extremity Problem General Chief complaint: Extremity Problem Stated complaint: r leg swollen painful Time Seen by Provider: 08/03/22 21:26 Source: patient Mode of arrival: ambulatory Limitations: no limitations History of Present Illness HPI Narrative: 71-year-old male with history of dyspnea on exertion, restrictive lung disease, SVT, hemophilia A, hypertension, and BPH presents to the emergency department with right lower extremity swelling and pain x3 weeks, this all started after he trip and fell crushed his leg. Patient reports this pain has been worsening over the past 3 weeks and that it is becoming more difficult to bend his leg and ambulate leg feels tight and very painful. Additionally patient reports decreased sensation in the extremity. Patient reports he has never experienced this before. Denies new trauma or injuries to the extremity. Patient is not on blood thinners. patient was seen here in the emergency department was told he had cellulitis to the right lower extremity was placed on doxycycline and Keflex initially he tells me right lower extremity got better however has been worsening over the past few days. Denies fevers, chills ,headaches, dizziness, chest pain, shortness of breath, nausea, vomiting, abdominal pain. Related Data Home Medications Medication Instructions Recorded Confirmed calcium carbonate 600 mg-vitamin 1 tab PO DAILY 08/03/20 06/17/22 D3 5 mcg (200 unit) tablet (Calcium 600 + D(3)) cyanocobalamin (vitamin B-12) 250 250 mcg PO DAILY 08/03/20 06/17/22 mcg lozenges lisinopril 5 mg tablet 5 mg PO DAILY 08/03/20 06/17/22 Previous Rx's Medication Instructions Recorded nystatin 100,000 unit/gram topical See Rx Instructions topical BID 10/21/21 powder #60 grams lorazepam 0.5 mg tablet 0.5 mg PO BEDTIME PRN sedation 30 04/20/22 days #14 tabs potassium citrate 10 mEq (1,080 20 meq PO BID 90 days #360 tabs 06/17/22 mg) tablet,extended release pyridoxine (vitamin B6) 100 mg 100 mg PO DAILY 90 days #90 tabs 06/17/22 tablet cephalexin 500 mg capsule 500 mg PO BID #13 caps 07/18/22 doxycycline hyclate 100 mg capsule 100 mg PO BID #13 caps 07/18/22 metoprolol succinate 25 mg 25 mg PO DAILY #90 tabs 07/18/22 tablet,extended release 24 hr tramadol 50 mg tablet 50 mg PO BID PRN pain #7 tabs 07/18/22 Allergies Allergy/AdvReac Type Severity Reaction Status Date / Time No Known Allergies Allergy Verified 06/17/22 11:12 Review of Systems Review of Systems: Constitutional : No Weight loss, No Fever, No Chills, No Fatigue, No Malaise ENT/Mouth : No sore throat, No Rhinorrhea Eyes: No Eye Pain, No Swelling, No Redness Cardiovascular : No Chest Pain, No SOB, No Dyspnea on Exertion, No Orthopnea, No Edema, No Palpitations Respiratory : No Cough, No Sputum, No Wheezing Gastrointestinal : No Nausea, No Vomiting, No Diarrhea, No Constipation, No abdominal Pain, No Hematochezia, No Melena Genitourinary : No Dysuria, No Urinary Frequency, No Hematuria, Musculoskeletal : + joint pain, No Myalgias, Joint Swelling Skin : No Skin Lesions, No rash Neuro : No Weakness, No Numbness, No Dizziness, No Headache Psych : No Anxiety/Panic, No Depression All other systems reviewed and are negative Yes all other systems are reviewed and are negative [facility] Past Medical History Attestation statement: The following information was validated with the patient. Source: old records reviewed and nursing notes reviewed Medical History Atrial arrhythmia Loja cyst BPH (benign prostatic hyperplasia) Cholelithiasis Crohn's disease Dyspnea on exertion Essential hypertension Gout Hemophilia History of cataract History of hepatitis C Nocturnal hypoxemia Obesity (BMI 30-39.9) Obesity (BMI 30-39.9) Osteopenia Parastomal hernia Peripheral vascular disease Renal stones Restrictive lung disease Thrombocytopenia Surgical History H/O tooth extraction H/O wrist surgery History of appendectomy History of cataract surgery History of urethral stent Family History Family History Father Prostate cancer Mother Diabetes Maternal Grandfather Factor VIII deficiency hemophilia Social History Social History Household Members: Spouse Housing: House Are you a primary care coordinator to a significant other at home: No Do you presently have visiting nurse or other home services: No Alcohol intake: current Alcohol intake frequency: holidays/special occasions only Patient Tobacco Use Status: Never used Tobacco Smoked in Last 30 Days: No e-Cigarette/Vaping Use: Never Used Second Hand Smoke Exposure: No Use of substances other than those prescribed or required for medical reasons: No Advance Directives: No Advance Directives Information Provided: No service: No Current occupational status: retired Cognitive needs: No Hearing needs: No Vision needs: Yes Physical Exam Vital Signs: Vital Signs: Last Vital Signs Temp 97.8 F 08/04/22 00:00 Pulse 79 08/04/22 00:00 Resp 14 08/03/22 21:06 BP 147/75 H 08/04/22 00:00 Pulse Ox 96 08/04/22 00:00 O2 Del Method 08/04/22 00:00 BMI result Body Mass Index 29.8 vss Appearance: Alert.? Oriented X3.? No acute distress.? Head: Normocephalic, atraumatic, no step-offs or deformities Eyes: Pupils equal, round and reactive to light.? CVS: Normal heart rate and rhythm.? Pulses normal.? Respiratory: No respiratory distress.? Breath sounds normal.? Abdomen: Soft and nontender.? Skin: Skin warm and dry.? Normal skin color.? Normal skin turgor.? Extremities: 1+ LLE nonpitting edema. 3+ non pitting edema to RLE w/ tense compartments.? No calf ttp. 5/5 strength to bilateral upper and lower extremities + warmth to RLE w/ decreased sensation. Normal sensation and skin to LLE. 2+ DP,PT,AT pulses equal and b/l. Some pain with ROM of right ankle and knee. Back: No midline tenderness, no C-spine tenderness, full range of motion, no CVA tenderness bilaterally Neuro: Oriented X 3.? No motor deficit.? No sensory deficit. CN 2-12 intact Course Reevaluation(s) Reevaluation #1: Patient's CBC appears to be within normal limits. Chemistry with no acute electrolyte abnormalities requiring intervention. Inflammatory markers within normal limits. Ultrasound with no signs of DVT to right lower extremity. Knee xray normal. CTA pending. Time: 22:51 Reevaluation #2: Discussed case w/ who tells me unlikley compartment syndrome would be unlikely 3 weeks later. Time: 00:25 Reevaluation #3: I had my attending evaluate patient, he obtained a history and physical exam, he suspects this is likely favoring cellulitis with lymphangitis. At this time patient will be started on ceftriaxone and vanco. Plan is to admit patient to the hospitalist team as he already failed outpatient p.o. therapy. to admit patient Time: 00:27 MDM - Extremity (Nontraumatic) MDM Narrative Medical decision making narrative: 2129 71 yo m presents w/ progressivly worsening pain, decreased sensation, swelling and warmth to RLE from knee down to foot. Sustained injury 3 weeks ago since then sx worsening PE w. 1+ LLE nonpitting edema. 3+ non pitting edema to RLE w/ tense compartments.? No calf ttp. 5/5 strength to bilateral upper and lower extremities + warmth to RLE w/ decreased sensation.Pain with ROM of right ankle and knee. Normal sensation and skin to LLE. Concerns for DVT vs cellulitis vs compartment syndrome. Unlikely arterial occlusion. Unlikley septic joint. Plan- us, imaging will reach out to specialist. Medical Records Attestation: I reviewed the patient's medical records. Lab Data Attestation: I reviewed the patient's lab results. Result diagrams: 08/03/22 14:05 08/03/22 14:05 Labs: Lab Results 08/03/22 08/03/22 08/03/22 Range/Units 14:05 14:05 14:05 WBC 6.3 (4.8-10.8) X10*3/uL RBC 4.40 L (4.60-5.80) X10*6/uL Hgb 14.3 (14.0-18.0) g/dl Hct 43.5 (42.0-52.0) % MCV 98.9 H (80.0-98.0) fL MCH 32.5 (27.0-33.0) pg MCHC 32.9 (31.0-36.0) g/dl RDW 13.5 (11.0-16.0) % Plt Count 171 (160-400) X10*3/uL MPV 9.0 L (9.4-12.4) fL Immature Gran % (Auto) 0.3 (0.0-0.4) % Neut % (Auto) 64.9 (45-73) % Lymph % (Auto) 21.8 (20-40) % Dyer % (Auto) 10.8 (2-11) % Eos % (Auto) 1.6 (0-4) % Baso % (Auto) 0.6 (0-2) % Lymph # (Auto) 1.4 (1.2-4.9) X10*3/uL Dyer # (Auto) 0.7 (0.1-1.2) X10*3/uL Eos # (Auto) 0.1 (0.0-0.4) X10*3/uL Baso # (Auto) 0.0 (0.0-0.2) X10*3/uL Abs Immat Gran (auto) 0.02 (0.00-0.03) X10*3/uL Absolute Neuts (auto) 4.1 (2.0-8.3) x10*3/uL Absolute Nucleated RBC 0.000 (0.0-0.012) X10*3/uL Nucleated RBC % (auto) 0.0 (0.0-0.2) /100WBC Sodium 140 (135-145) mmol/L Potassium 4.4 (3.3-5.1) mmol/L Chloride 101 (96-108) mmol/L Carbon Dioxide 25 (22-29) mmol/L Anion Gap 18 (12-20) BUN 10 (9-16) mg/dL Creatinine 1.19 (0.5-1.4) mg/dL Estim Creat Clear Calc 70.6 Estimated GFR > 60 Random Glucose 88 (60-115) mg/dL Lactic Acid 1.8 (0.5-2.0) mmol/L Calcium 9.1 (8.4-10.2) mg/dL C-Reactive Protein 0.40 (< or = 0.50) mg/dL Critical Care Time Critical Care Time Critical Care Time: Yes Total Critical Care Time: 35 Attestation: I attest to this time spent taking care of the patient, obtaining history, physical, reviewing labs, imaging, speaking to my attending, speaking to specialist. Discharge Plan Discharge Clinical Impression: Edema of lower extremity, Cellulitis, Lymphangitis Patient Disposition: Admitted As Inpatient Prescriptions: No Action potassium citrate 10 mEq (1,080 mg) tablet extended release 20 meq PO BID 90 Days Qty: 360 3RF metoprolol succinate 25 mg tablet extended release 24 hr 25 mg PO DAILY Qty: 90 3RF cephalexin 500 mg capsule 500 mg PO BID Qty: 13 0RF doxycycline hyclate 100 mg capsule 100 mg PO BID Qty: 13 0RF tramadol 50 mg tablet 50 mg PO BID PRN (Reason: pain) Qty: 7 0RF lisinopril 5 mg tablet 5 mg PO DAILY calcium carbonate-vitamin D3 [Calcium 600 + D(3)] 600 mg(1,500mg) -200 unit tablet 1 tab PO DAILY cyanocobalamin (vitamin B-12) 250 mcg lozenge 250 mcg PO DAILY nystatin 100,000 unit/gram powder See Rx Instructions topical BID Qty: 60 11RF Rx Instructions: apply to ileostomy site topical 2 times a day; lorazepam 0.5 mg tablet 0.5 mg PO BEDTIME PRN (Reason: sedation) 30 Days Qty: 14 0RF pyridoxine (vitamin B6) 100 mg tablet 100 mg PO DAILY 90 Days Qty: 90 3RF
[2022-08-03 22:51] VITALS: BP 156/69; PULSE 81; TEMP 37.2; O2SAT 96
[2022-08-03] MEDS: Morphine Sulfate 4 MG/ML CARTRIDGE IVPUSH (23:02)
[2022-08-04] VITALS: BP 147/75; PULSE 79; TEMP 36.6; O2SAT 96
[2022-08-04] MEDS: iohexoL 350 MG/ML 100 ML INFUS..BTL 80 ML IV (00:48)
[2022-08-04] MEDS: cefTRIAXone sodium 1 GM in 0.9 % Sodium Chloride 50 ML IV (01:19)
[2022-08-04 02:00] VITALS: BP 143/73; PULSE 78; TEMP 36.7; O2SAT 92
[2022-08-04 02:30] LABS: COVID-19 Test Negative (Negative)
--- NOTE | 2022-08-04 05:06 | P.HPHOSP_ITS ---
History of Present Illness Date of Service: 08/04/22 Chief Complaint: leg swelling Year old male with past medical history of peripheral vascular disease, history of SVT, hemophilia a, obesity, nocturnal hypoxemia, restrictive lung disease, BPH, presents to the hospital with complaints of right leg swelling. Patient reports that about 2 weeks ago, he was seen in the hospital and was discharged on doxycycline and Keflex. He reports that after using the antibiotics completely he felt better but 5 days ago the swelling returned, worsened over the next few days, very painful 8/10, as well as increased redness. Patient denies any fever chills, no chest pain, no shortness of breath, no abdominal pain nausea or vomiting, no diarrhea constipation, no urinary symptoms and no lower extremity edema. On arrival to the ED patient hemodynamically stable with vital significant for elevated blood pressure Labs are significant for WBC of 6.3, otherwise unremarkable COVID negative Imaging including right knee shows mild degenerative joint changes most consistent with osteoarthritis, venous duplex shows no DVT in the right lower extremity there is popliteal did cyst with no interval change since 07/18. CT angiogram of the lower extremity shows extensive circumferential calcification throughout the bilateral lower extremity, subcutaneous edema in the mid to distal right thigh and circumferentially throughout the right calf. Subcutaneous edema throughout the left calf Patient started on IV antibiotics and will be admitted for further management Review of Systems Review of Systems: Yes all other systems are reviewed and are negative [facility] Medical History Atrial arrhythmia Loja cyst BPH (benign prostatic hyperplasia) Cholelithiasis Crohn's disease Dyspnea on exertion Essential hypertension Gout Hemophilia History of cataract History of hepatitis C Nocturnal hypoxemia Obesity (BMI 30-39.9) Obesity (BMI 30-39.9) Osteopenia Parastomal hernia Peripheral vascular disease Renal stones Restrictive lung disease Thrombocytopenia Family History Father Prostate cancer Mother Diabetes Maternal Grandfather Factor VIII deficiency hemophilia Surgical History H/O tooth extraction H/O wrist surgery History of appendectomy History of cataract surgery History of urethral stent Social History Household Members: Spouse Housing: House Are you a primary client care specialist to a significant other at home: No Do you presently have visiting nurse or other home services: No Alcohol intake: current Alcohol intake frequency: holidays/special occasions only Patient Tobacco Use Status: Never used Tobacco Smoked in Last 30 Days: No e-Cigarette/Vaping Use: Never Used Second Hand Smoke Exposure: No Use of substances other than those prescribed or required for medical reasons: No Advance Directives: No Advance Directives Information Provided: No service: No Current occupational status: retired Cognitive needs: No Hearing needs: No Vision needs: Yes Meds Allergies Allergy/AdvReac Type Severity Reaction Status Date / Time No Known Allergies Allergy Verified 06/17/22 11:12 Active Medications: Current Medications Pharmacy Consult (Consult Rx Vancomycin Dosing) 1 each MISCELLANE DAILY PRN PRN Reason: Consult order Home Medications Medication Instructions Recorded Confirmed Last Taken Type calcium carbonate 600 mg-vitamin 1 tab PO DAILY 08/03/20 06/17/22 Unknown History D3 5 mcg (200 unit) tablet (Calcium 600 + D(3)) cyanocobalamin (vitamin B-12) 250 250 mcg PO DAILY 08/03/20 06/17/22 Unknown History mcg lozenges lisinopril 5 mg tablet 5 mg PO DAILY 08/03/20 06/17/22 Unknown History Physical Exam Vital Signs and Narrative: Vital Signs: Last Vital Signs Temp 98.0 F 08/04/22 02:00 Pulse 78 08/04/22 02:00 Resp 14 08/03/22 21:06 BP 143/73 H 08/04/22 02:00 Pulse Ox 92 08/04/22 02:00 O2 Del Method 08/04/22 02:00 BMI result Body Mass Index 29.8 Const: General: cooperative and no acute distress Orientation/consciousness: patient oriented x3 Eyes: General: appearance normal, both eyes and all related structures Pupils: Equal, round and reactive pupils present Resp: Effort & Inspection: normal respiratory effort Auscultation: clear to auscultation bilaterally Cardio: Rate: regular rate Rhythm: regular rhythm GI: Palpation (GI): Soft to palpation Auscultation: normal bowel sounds Skin: Other: Right lower extremity erythema, tenderness, warmth, no drainage appreciated Neuro: General: patient oriented x3 Cranial nerves: Yes Equal, round and reactive pupils present Cognition (Neuro): normal cognition Extrem: Other: Right lower extremity edema, warmth, tenderness, edema Results Labs CBC and Chem 7: 08/03/22 14:05 08/03/22 14:05 Labs: Laboratory Results - last 24 hr 08/03/22 08/03/22 08/03/22 14:05 14:05 14:05 MCV 98.9 H MCH 32.5 MCHC 32.9 RDW 13.5 Plt Count 171 MPV 9.0 L Immature Gran % (Auto) 0.3 Neut % (Auto) 64.9 Lymph % (Auto) 21.8 [place] % (Auto) 10.8 Eos % (Auto) 1.6 Baso % (Auto) 0.6 Lymph # (Auto) 1.4 [place] # (Auto) 0.7 Eos # (Auto) 0.1 Baso # (Auto) 0.0 Abs Immat Gran (auto) 0.02 Absolute Neuts (auto) 4.1 Absolute Nucleated RBC 0.000 Nucleated RBC % (auto) 0.0 Anion Gap 18 Estim Creat Clear Calc 70.6 Estimated GFR > 60 Random Glucose 88 Lactic Acid 1.8 Calcium 9.1 Total Creatine Kinase C-Reactive Protein 0.40 COVID-19 (RAJNI) COVID-19 Clin Com 08/04/22 08/04/22 02:05 02:12 MCV MCH MCHC RDW Plt Count MPV Immature Gran % (Auto) Neut % (Auto) Lymph % (Auto) [place] % (Auto) Eos % (Auto) Baso % (Auto) Lymph # (Auto) [place] # (Auto) Eos # (Auto) Baso # (Auto) Abs Immat Gran (auto) Absolute Neuts (auto) Absolute Nucleated RBC Nucleated RBC % (auto) Anion Gap Estim Creat Clear Calc Estimated GFR Random Glucose Lactic Acid Calcium Total Creatine Kinase 46 C-Reactive Protein COVID-19 (RAJNI) Negative COVID-19 Clin Com See Note Imaging Radiologist's Impressions: Impressions Knee X-Ray 08/03/22 12:18 IMPRESSION: Mild degenerative joint changes most consistent with osteoarthritis. No acute abnormality. Venous Duplex 08/03/22 22:30 IMPRESSION: No DVT demonstrated in the right lower extremity. Popliteal cysts as described above. No interval change when compared to 07/18/2022. Lower Extremity CTA 08/04/22 00:50 IMPRESSION: 1. Extensive circumferential calcification throughout the bilateral lower extremities. Evaluation for patency of the calf vessels is limited due to extensive circumferential calcification and small caliber of the vessels, although there does appear to be opacification of vessels in the feet, suggesting patent anterior and posterior tibial arteries bilaterally. 2. Subcutaneous edema in the mid to distal right thigh and circumferentially throughout the right calf. Milder subcutaneous edema throughout the left calf. 3. Bilateral popliteal fossa cysts. 4. Right lower quadrant ostomy with associated parastomal hernia. Assessment and Plan (1) Cellulitis: Qualifiers: Site of cellulitis: extremity Site of cellulitis of extremity: lower extremity Laterality: right Qualified Code(s): L03.115 - Cellulitis of right lower limb Status: Acute (2) Edema of lower extremity: Status: Acute (3) Lymphangitis: Status: Acute Plan This is a 71-year-old male with past medical history of peripheral vascular disease, SVT, presents to the hospital with complaints of worsening right leg swelling, redness found to have cellulitis # acute right lower extremity cellulitis - erythema, tenderness, warmth and edema - trial of outpatient therapy failed - will treat with IV antibiotics - no drainage or open wounds noted - follow cultures # lower extremity edema - likely secondary to lymphangitis and peripheral vascular disease as well as venous insufficiency - no evidence of heart failure - compression stocking on discharge # peripheral vascular disease - follows with vascular surgery of patient # SVT - stable heart rhythm and rate - continue metoprolol DVT prophylaxis: Lovenox Given need for IV antibiotics and failed outpatient therapy patient will require minimum 2 night inpatient hospital stay for further management monitoring Quality Stroke Does the patient have a stroke diagnosis?: No VTE Prior VTE?: No VTE Risk Level:: Medical - moderate - high VTE Device Contraindication: Treatment Not Indicated VTE Drug Contraindication: N/A - Med Ordered
[2022-08-04 06:54] VITALS: BP 149/78; PULSE 74; RESP 16; O2SAT 95
[2022-08-04 06:56] LABS: MANUAL DIFF FLAG NO
[2022-08-04 06:59] LABS: Basophils Percent Auto 0.8 % (0-2); Eosinophils Absolute Auto 0.2 X10*3/uL (0.0-0.4); Eosinophils Percent Auto 3.7 % (0-4); Hematocrit 39.8 % (42.0-52.0); Hemoglobin 12.9 g/dl (14.0-18.0); Imm Gran Abs Auto 0.03 X10*3/uL (0.00-0.03); Imm Gran Pct Auto 0.6 % (0.0-0.4); Lymphocytes Absolute Auto 1.4 X10*3/uL (1.2-4.9); Lymphocytes Percent Auto 28.5 % (20-40); Mean Corpuscular HGB Conc 32.4 g/dl (31.0-36.0); Mean Corpuscular Hemoglobin 32.1 pg (27.0-33.0); Mean Platelet Volume 9.5 fL (9.4-12.4); Monocytes Absolute Auto 0.6 X10*3/uL (0.1-1.2); Monocytes Percent Auto 12.2 % (2-11); Neutrophils Absolute Auto 2.6 x10*3/uL (2.0-8.3); Neutrophils Percent Auto 54.2 % (45-73); Platelet Count 151 X10*3/uL (160-400); Red Blood Count 4.02 X10*6/uL (4.60-5.80); Red Cell Distribution Width 13.4 % (11.0-16.0); White Blood Count 4.8 X10*3/uL (4.8-10.8)
[2022-08-04 07:17] LABS: Anion Gap 14 (12-20); Blood Urea Nitrogen 11 mg/dL (9-16); Calcium 8.7 mg/dL (8.4-10.2); Carbon Dioxide 27 mmol/L (22-29); Chloride 102 mmol/L (96-108); Creatinine Clr Calc Pharmacy 77.8; Estimated Glomerular Filt Rate > 60; Glucose Random 81 mg/dL (60-115); Sodium 139 mmol/L (135-145)
[2022-08-04] MEDS: Acetaminophen 325 MG TABLET 650 MG PO (07:44)
--- NOTE | 2022-08-04 09:12 | PHA.MEDREC ---
Pharmacy Consult ? Medication Reconciliation Pharmacy has completed the medication reconciliation.
[2022-08-04] MEDS: 0.9 % Sodium Chloride Flush 3 ML SYRINGE IVFLUSH ×2 (09:33→16:04)
[2022-08-04] MEDS: ceFAZolin Sodium/Dextrose,Iso 2 GM/50 ML PIGGYBACK IV ×2 (09:33→20:54)
[2022-08-04] MEDS: Heparin Sodium,Porcine 5,000 UNIT/ML VIAL 5000 UNIT SUBCUT ×2 (09:39→20:56)
[2022-08-04] MEDS: Morphine Sulfate 2 MG/ML CARTRIDGE IVPUSH ×3 (10:07→20:55)
--- NOTE | 2022-08-04 12:29 | PM.EVENT ---
Event Note Date of Service: 08/04/22 Event Note: Seen and evaluated this morning Complaining pain in his right lower extremity with mild swelling Warm, mild erythema noted extending along with lymphatic line age Continue cefazolin for now Apply Efe wrap Morphine for pain Encourage ambulation and keep legs elevated
[2022-08-04 12:54] VITALS: BP 149/76; PULSE 70; RESP 16; O2SAT 96
--- NOTE | 2022-08-04 14:39 | MHC.CM.PN ---
Attempted to meet with patient in regards to discharge planning. Patient is currently sleeping. Will attempt to meet again. Continue to monitor for d/c needs.
[2022-08-04 15:08] VITALS: BP 134/66; PULSE 102; RESP 18; TEMP 36.4; O2SAT 96
[2022-08-04 16:19] VITALS: BMI 29.8
[2022-08-04 19:45] VITALS: BP 156/75; PULSE 83; RESP 18; TEMP 36.5; O2SAT 96
[2022-08-04] MEDS: Potassium Chloride ER 20 MEQ TAB.ER.PRT PO (20:56)
[2022-08-05] VITALS (7 sets, daily range): BP systolic 121–144; BP diastolic 64–89; PULSE 70–83; RESP 17–20; TEMP 36–37.2; O2SAT 94–95
[2022-08-05] MEDS: Nystatin Powder 15 GM BOTTLE 1 APPL TOPICAL ×2 (00:57→20:17)
[2022-08-05] MEDS: 0.9 % Sodium Chloride Flush 3 ML SYRINGE IVFLUSH ×3 (00:57→17:17)
[2022-08-05] MEDS: ceFAZolin Sodium/Dextrose,Iso 2 GM/50 ML PIGGYBACK IV ×2 (01:30→09:40)
[2022-08-05] MEDS: Morphine Sulfate 2 MG/ML CARTRIDGE IVPUSH ×3 (03:36→18:44)
[2022-08-05 06:21] LABS: Hematocrit 37.6 % (42.0-52.0); Hemoglobin 12.2 g/dl (14.0-18.0); Mean Corpuscular HGB Conc 32.4 g/dl (31.0-36.0); Mean Corpuscular Hemoglobin 32.2 pg (27.0-33.0); Mean Corpuscular Volume 99.2 fL (80.0-98.0); Mean Platelet Volume 9.9 fL (9.4-12.4); Platelet Count 151 X10*3/uL (160-400); Red Blood Count 3.79 X10*6/uL (4.60-5.80); Red Cell Distribution Width 13.6 % (11.0-16.0); White Blood Count 4.4 X10*3/uL (4.8-10.8)
[2022-08-05 06:37] LABS: Anion Gap 17 (12-20); Blood Urea Nitrogen 10 mg/dL (9-16); Calcium 8.3 mg/dL (8.4-10.2); Carbon Dioxide 20 mmol/L (22-29); Chloride 105 mmol/L (96-108); Creatinine Clr Calc Pharmacy 68.9; Estimated Glomerular Filt Rate 59; Glucose Random 104 mg/dL (60-115); Sodium 138 mmol/L (135-145)
--- NOTE | 2022-08-05 07:47 | PC.NURSE ---
Patient was admission day 1. Pain management as needed with morphine to R leg pain and effective. Tolerated scheduled Cefazolin with no complaint. Pt slept for most part of the night.
[2022-08-05] MEDS: Acetaminophen 325 MG TABLET 650 MG PO (08:56)
[2022-08-05] MEDS: Metoprolol Succinate ER 25 MG TAB.ER.24H PO (08:59)
[2022-08-05] MEDS: Heparin Sodium,Porcine 5,000 UNIT/ML VIAL 5000 UNIT SUBCUT ×2 (09:00→20:15)
[2022-08-05] MEDS: Potassium Chloride ER 20 MEQ TAB.ER.PRT PO ×2 (09:04→20:15)
[2022-08-05] MEDS: Clindamycin Phosphate/D5W 600 MG/50 ML PIGGYBACK 100 MG IV ×2 (11:42→18:38)
--- NOTE | 2022-08-05 15:02 | MHC.CM.PN ---
IMM 08/05/22, EMR REVIEWED, CM MET W/PT WHO REPORTS HE LIVES W/, ONLY DME IS [employer]PPLIES, DENIES HOME SERVICES, PT VERIFIES PCP IS SHANTHI PINEDA, PT FULLY COVID VAXX W/PFIZER AND MODERNA BOOSTERS, PT REPORTS HIS MADI JONES IS HCP AND COPY HAS BEEN REQUESTED. ANTIC PT WILL D/C HOME NO SERVICES WHEN MEDICALLY CLEARED W/FAMILY FOR TRANSPORT
--- NOTE | 2022-08-05 15:34 | HO.PM.IMPN ---
Subjective Subjective Date of Service: 08/05/22 Interval History: the patient was seen and evaluated this morning Laying in bed, feels comfortable Leg pain has decreased but still have pain in his thigh No reported other overnight events. Systemic review: No fever, chills or weakness No chest pain, palpitation No shortness of breath or coughing No abdominal pain, nausea or vomiting No urinary symptoms Left lower extremity rash Physical Exam Vital Signs: Vital Signs: Last Vital Signs Temp 98.9 F 08/05/22 11:30 Pulse 80 08/05/22 11:30 Resp 20 08/05/22 11:30 BP 131/68 08/05/22 11:30 Pulse Ox 94 08/05/22 11:30 O2 Del Method 08/05/22 11:30 BMI result Body Mass Index 29.8 Const: Other: Constitutional : Awake, interactive, not in distress Neck : Normal inspection, Supple Cardiovascular : RRR, no JVP, no lower extremity edema Respiratory : good bilateral air entry, no crackles, wheezes or rhonchi Gastrointestinal: soft, lax, Normal bowel sounds, Non tender Skin : Warm, Dry, left lower extremity mild swelling and erythema extending to the mid thigh with mild tenderness Neurological : Alert & oriented x3, No focal deficit Objective Data Active Medications Acetaminophen (Acetaminophen 325 Mg Tablet) 650 mg PO Q6H PRN PRN Reason: Pain, Mild (Pain Scale 1-3) Last Admin: 08/05/22 08:56 Dose: 650 mg Documented By: PASTOR Docusate Sodium (Docusate Sodium 100 Mg Capsule) 100 mg PO DAILY PRN PRN Reason: Constipation Heparin Sodium (Porcine) (Heparin Sodium,Porcine 5,000 Unit/Ml Vial) 5,000 unit SUBCUT Q12H PENDING SALE TO [facility] Last Admin: 08/05/22 09:00 Dose: 5,000 unit Documented By: PASTOR Clindamycin Phosphate (Cleocin) 600 mg in 50 mls @ 100 mls/hr IV Q8H PENDING SALE TO [facility] Last Infusion: 08/05/22 12:16 Dose: 0 mls/hr Documented By: ALLEN Metoprolol Succinate (Metoprolol Succinate Er 25 Mg Tab.Er.24h) 25 mg PO DAILY PENDING SALE TO [facility]; Protocol Last Admin: 08/05/22 08:59 Dose: 25 mg Documented By: HO.S-DEMAB Morphine Sulfate (Morphine Sulfate 2 Mg/Ml Cartridge) 2 mg IVPUSH Q4H PRN; Protocol PRN Reason: Pain, Severe (Pain Scale 7-10) Last Admin: 08/05/22 11:53 Dose: 2 mg Documented By: ALLEN Nystatin (Nystatin Powder 15 Gm Bottle) 1 appl TOPICAL BID PENDING SALE TO [facility]; Protocol Last Admin: 08/05/22 09:05 Dose: Not Given Documented By: PASTOR Non-Admin Reason: See Note Ondansetron HCl (Ondansetron Hcl 4 Mg/2 Ml Vial) 4 mg IVPUSH Q8H PRN PRN Reason: Nausea and Vomiting Potassium Chloride (Potassium Chloride Er 20 Meq Tab.Er.Prt) 20 meq PO BID PENDING SALE TO [facility] Last Admin: 08/05/22 09:04 Dose: 20 meq Documented By: PASTOR Sodium Chloride (0.9 % Sodium Chloride Flush 3 Ml Syringe) 3 ml IVFLUSH QSHIFT PENDING SALE TO [facility] Last Admin: 08/05/22 09:03 Dose: 3 ml Documented By: PASTOR Labs CBC & Chem 7: 08/05/22 05:23 08/05/22 05:23 Labs: Laboratory Results - last 24 hr 08/05/22 08/05/22 05:23 05:23 MCV 99.2 H MCH 32.2 MCHC 32.4 RDW 13.6 Plt Count 151 L MPV 9.9 Absolute Nucleated RBC 0.000 Nucleated RBC % (auto) 0.0 Anion Gap 17 Estim Creat Clear Calc 68.9 Estimated GFR 59 Random Glucose 104 Calcium 8.3 L Microbiology Microbiology Results: Microbiology 08/03/22 20:10 Blood Culture - Preliminary Blood - Venous No growth after 24 hours. 08/03/22 20:10 Blood Culture - Preliminary Blood - Venous No growth after 24 hours. Assessment and Plan (1) Edema of lower extremity: Status: Acute (2) Cellulitis: Status: Acute Plan This is a 71-year-old male with past medical history of peripheral vascular disease, SVT, presents to the hospital with complaints of worsening right leg swelling, redness found to have cellulitis # acute right lower extremity cellulitis Improving slowly Change antibiotic to clindamycin Pending final cultures Keep leg elevated, apply Efe wrap # lower extremity edema likely secondary to lymphangitis and peripheral vascular disease as well as venous insufficiency no evidence of heart failure Keep leg elevated and use Efe wrap # peripheral vascular disease To follow with vascular surgery outpatient # SVT in sinus rhythm continue metoprolol DVT prophylaxis: Lovenox Given need for IV antibiotics and failed outpatient therapy patient will require overnight inpatient hospital stay for IV antibiotic pending final cultures to prevent possible decompensation and to sepsis Quality Stroke Does the patient have a stroke diagnosis?: No VTE Prior VTE?: No VTE Risk Level:: Medical - moderate - high VTE Device Contraindication: Treatment Not Indicated VTE Drug Contraindication: N/A - Med Ordered
[2022-08-06] MEDS: 0.9 % Sodium Chloride Flush 3 ML SYRINGE IVFLUSH ×2 (00:45→09:10)
[2022-08-06 04:00] VITALS: BP 151/85; PULSE 72; RESP 17; TEMP 36; O2SAT 93
[2022-08-06] MEDS: Clindamycin Phosphate/D5W 600 MG/50 ML PIGGYBACK 100 MG IV (04:25)
[2022-08-06 05:29] LABS: Hematocrit 36.9 % (42.0-52.0); Mean Corpuscular HGB Conc 32.5 g/dl (31.0-36.0); Mean Corpuscular Hemoglobin 32.1 pg (27.0-33.0); Mean Corpuscular Volume 98.7 fL (80.0-98.0); Mean Platelet Volume 9.4 fL (9.4-12.4); Platelet Count 144 X10*3/uL (160-400); Red Blood Count 3.74 X10*6/uL (4.60-5.80); Red Cell Distribution Width 13.3 % (11.0-16.0); White Blood Count 4.2 X10*3/uL (4.8-10.8)
[2022-08-06] MEDS: Morphine Sulfate 2 MG/ML CARTRIDGE IVPUSH (05:33)
[2022-08-06 05:54] LABS: Anion Gap 14 (12-20); Blood Urea Nitrogen 11 mg/dL (9-16); Calcium 8.3 mg/dL (8.4-10.2); Carbon Dioxide 22 mmol/L (22-29); Chloride 108 mmol/L (96-108); Creatinine Clr Calc Pharmacy 80.8; Estimated Glomerular Filt Rate > 60; Glucose Random 88 mg/dL (60-115); Potassium 3.8 mmol/L (3.3-5.1); Sodium 140 mmol/L (135-145)
[2022-08-06 07:40] VITALS: BP 140/73; PULSE 79; RESP 18; TEMP 36.1; O2SAT 95
[2022-08-06] MEDS: Metoprolol Succinate ER 25 MG TAB.ER.24H PO (09:09)
[2022-08-06] MEDS: Potassium Chloride ER 20 MEQ TAB.ER.PRT PO (09:09)
[2022-08-06] MEDS: Nystatin Powder 15 GM BOTTLE 1 APPL TOPICAL (09:10)
--- NOTE | 2022-08-06 10:46 | P.DS_ITS ---
DS: Providers Provider Date of Service: 08/06/22 Date of admission: 08/04/22 05:04 Primary care physician: Jennifer Parikh MD DS: Diagnosis Discharge Diagnosis (1) Edema of lower extremity: Status: Acute (2) Cellulitis: Status: Acute DS: Summary Hospital Course Hospital Course: Admission note HPI Year old male with past medical history of peripheral vascular disease, history of SVT, hemophilia a, obesity, nocturnal hypoxemia, restrictive lung disease, BPH, presents to the hospital with complaints of right leg swelling.? Patient reports that about 2 weeks ago, he was seen in the hospital and was discharged on doxycycline and Keflex.? He reports that after using the antibiotics completely he felt better but 5 days ago the swelling returned, worsened over the next few days, very painful /10, as well as increased redness.? Patient denies any fever chills, no chest pain, no shortness of breath, no abdominal pain nausea or vomiting, no diarrhea constipation, no urinary symptoms and no lower extremity edema. On arrival to the ED patient hemodynamically stable with vital significant for elevated blood pressure Labs are significant for WBC of 6.3, otherwise unremarkable COVID negative. Imaging including right knee shows mild degenerative joint changes most consistent with osteoarthritis, venous duplex shows no DVT in the right lower extremity there is popliteal did cyst with no interval change since 07/18. CT angiogram of the lower extremity shows extensive circumferential calcification throughout the bilateral lower extremity, subcutaneous edema in the mid to distal right thigh and circumferentially throughout the right calf.? Subcutaneous edema throughout the left calf. Patient started on IV antibiotics and will be admitted for further management. Hospital course The patient was admitted to the hospital for treatment of right lower extremity cellulitis after failed outpatient antibiotic of doxycycline and Ceftin. Ultrasound was done with no evidence of DVT. CT angiogram of lower extremity was done showing no evidence of abscess but Extensive circumferential calcification throughout the bilateral lower extremities. Treated with leg elevation, placing Efe wrap and IV clindamycin with good response over the course of hospital stay as blood cultures remain negative and erythema, pain and swelling improved significantly. He was able to ambulate with no reported pain. He was also noted to have bilateral lower extremity edema which is?likely secondary to lymphangitis and peripheral vascular disease as well as venous insufficiency with no evidence of heart failure identified. Plan to follow-up as outpatient with Dr. Yost from vascular surgery for further workup. Keep your legs elevated, apply compression stockings Continue antibiotic as prescribed to finish 1 week of treatment To follow-up with Dr. Yost for further workup of peripheral vascular disease Please come back to the hospital for any severe pain, cold extremity or increase fever and chills. Time Spent with Patient Time attestation: Total time spent providing and/or coordinating discharge services: Discharge coordination time: Greater than 30 minutes Quality: Safe Use of Opioids Does Pt have an Active Cancer Diagnosis on the Problem List?: No Quality: Stroke Does the patient have a stroke diagnosis?: No Physical Exam Vital Signs: Vital Signs: Last Vital Signs Temp 97 F 08/06/22 07:40 Pulse 79 08/06/22 07:40 Resp 18 08/06/22 07:40 BP 140/73 H 08/06/22 07:40 Pulse Ox 95 08/06/22 07:40 O2 Del Method 08/06/22 07:40 BMI result Body Mass Index 29.8 Const: Other: Constitutional : Awake, interactive, not in distress Neck : Normal inspection, Supple Cardiovascular : RRR, no JVP, no lower extremity edema Respiratory : good bilateral air entry, no crackles, wheezes or rhonchi Gastrointestinal: soft, lax, Normal bowel sounds, Non tender Skin : Warm, Dry, left lower extremity improved swelling with resolution of erythema and no tenderness Neurological : Alert & oriented x3, No focal deficit DS: Data Data Completed and Pending Labs on day of discharge: Laboratory Results - last 24 hr 08/06/22 08/06/22 05:16 05:16 WBC 4.2 L RBC 3.74 L Hgb 12.0 L Hct 36.9 L MCV 98.7 H MCH 32.1 MCHC 32.5 RDW 13.3 Plt Count 144 L MPV 9.4 Absolute Nucleated RBC 0.000 Nucleated RBC % (auto) 0.0 Sodium 140 Potassium 3.8 Chloride 108 Carbon Dioxide 22 Anion Gap 14 BUN 11 Creatinine 1.04 Estim Creat Clear Calc 80.8 Estimated GFR > 60 Random Glucose 88 Calcium 8.3 L Preliminary micro results at discharge 08/03/22 20:10 Blood Culture - Preliminary Blood - Venous No growth after 48 hours. 08/03/22 20:10 Blood Culture - Preliminary Blood - Venous No growth after 48 hours. Imaging Chest x-ray: Radiologist's impression: ITS Impressions Knee X-Ray 08/03/22 12:18 IMPRESSION: Mild degenerative joint changes most consistent with osteoarthritis. No acute abnormality. Venous Duplex 08/03/22 22:30 IMPRESSION: No DVT demonstrated in the right lower extremity. Popliteal cysts as described above. No interval change when compared to 07/18/2022. Lower Extremity CTA 08/04/22 00:50 IMPRESSION: 1. Extensive circumferential calcification throughout the bilateral lower extremities. Evaluation for patency of the calf vessels is limited due to extensive circumferential calcification and small caliber of the vessels, although there does appear to be opacification of vessels in the feet, suggesting patent anterior and posterior tibial arteries bilaterally. 2. Subcutaneous edema in the mid to distal right thigh and circumferentially throughout the right calf. Milder subcutaneous edema throughout the left calf. 3. Bilateral popliteal fossa cysts. 4. Right lower quadrant ostomy with associated parastomal hernia. Discharge Plan Discharge Anticipated Discharge Date/Time: 08/06/22 10:21 Patient Disposition: Home, Self-Care Discharge Diagnosis: Right lower extremity cellulitis peripheral vascular disease Referrals: Valeriy Yost MD [Physician] - 2 Weeks (PAD with recurrent cellulitis for your kind eval and management. ) Po,Jennifer Early MD [Primary Care Provider] - 1 Week Discharge Medications: New clindamycin HCl 300 mg capsule 300 mg PO Q8H Qty: 15 0RF Continued potassium citrate 10 mEq (1,080 mg) tablet extended release 20 meq PO BID 90 Days Qty: 360 3RF metoprolol succinate 25 mg tablet extended release 24 hr 25 mg PO DAILY Qty: 90 3RF nystatin 100,000 unit/gram powder See Rx Instructions topical BID PRN (Reason: Skin Irritation) Rx Instructions: apply to ileostomy site topical 2 times a day; calcium carbonate-vitamin D3 [Calcium 600 + D(3)] 600 mg(1,500mg) -200 unit tablet 1 tab PO DAILY cyanocobalamin (vitamin B-12) 250 mcg lozenge 250 mcg PO DAILY pyridoxine (vitamin B6) 100 mg tablet 100 mg PO DAILY 90 Days Qty: 90 3RF Discharge Orders: Discharge Order (Routine); Ordered 08/06/22 Ordered By: Laura Gale Diet: Advance to usual diet Activity on Discharge: As tolerated Stand Alone Forms: Patient Portal Discharge page Care Plan Goals: Read below Health Concerns: Read below Plan of Treatment: Read below Assessment: You were admitted to the hospital for evaluation of right lower extremity swel ling and pain. CT scan showed an evidence of peripheral vascular disease and increased edema with no evidence of abscess. Treated with IV antibiotic and Efe wrap with good response over the course of hospital stay. Keep your legs elevated, apply compression stockings Continue antibiotic as prescribed to finish 1 week of treatment To follow-up with Dr. Yost for further workup of peripheral vascular disease Please come back to the hospital for any severe pain, cold extremity or increase fever and chills.
--- NOTE | 2022-08-06 11:41 | MHC.CM.PN ---
PT TO [facility] HOME TODAY, NO SERVICES ORDERED FAMILY TO TRANSPORT
== END 2022-08-06 11:26 | disposition home or self-care (01) | DRG 383 ==
LOC: HO.ED 08-04 00:27 → HO.EDOVER 08-04 05:13 → HO.S3 08-04 14:54
PROVIDERS: Physician Assistant; Admitting Provider Internal Medicine; Emergency Provider Student in an Organized Health Care Education/Training Program; PCP Internal Medicine; Visit Provider Student in an Organized Health Care Education/Training Program
DX: L03.115 Cellulitis of right lower limb (principal); D66 Hereditary factor VIII deficiency; I47.1 Supraventricular tachycardia; I87.2 Venous insufficiency (chronic) (peripheral); N40.0 Benign prostatic hyperplasia without lower urinary tract symptoms; M17.11 Unilateral primary osteoarthritis, right knee; Z20.822 Contact with and (suspected) exposure to COVID-19; Z79.899 Other long term (current) drug therapy
CPT/HCPCS: 36415; 73564; 73706; 80048; 82550; 83605; 85025; 85027; 86140; 87040; 87635; 93971; 99218; 99285; J0690; J0696; J2270; J3370; Q9967

== ENCOUNTER → 2022-10-11 11:17 | Outpatient (BNVA) | payer BC, MEDICARE, SELFPAY | PROVIDERS: PCP Internal Medicine; Visit Provider Surgery Vascular Surgery | DX: Z13.89 Encounter for screening for other disorder (principal) ==

== ENCOUNTER 2022-11-03 10:16 | Outpatient (REF) | payer BC, MEDICARE, SELFPAY ==
--- NOTE | ~2022-11-03 | US_ITS ---
EXAMINATION: US VENOUS REFLUX/INSUFFICIENCY CLINICAL INFORMATION: This is a 72 year-old woman with right lower extremity varicosities and inflammatory change. COMPARISON: None. TECHNIQUE: Bilateral lower extremity and venous insufficiency ultrasound was performed with velocity measurements. Color flow Doppler imaging was performed. FINDINGS: RIGHT SIDE: GREATER SAPHENOUS VEIN: The right saphenofemoral junction measurement is 0.7 cm. There is no reflux The right proximal thigh measurement is 0.7 cm. There is no reflux. The right mid thigh measurement is 0.5 cm. There is no reflux The right above-knee measurement is 0.5 cm. There is no reflux. The right at knee measurement is 0.4 cm. The reflux time is 3436 cm/s. The right below-knee measurement is 0.4 cm. The reflux time is 3072 ms. The right mid calf measurement is 0.5 cm. The reflux time is 1408 ms. The right ankle measurement is 0.4 cm. There is no reflux. LESSER SAPHENOUS VEIN: The right saphenofemoral junction measurement is 0.3 cm. There is no reflux. The right mid calf measurement is 0.3 cm. There is no reflux. The right distal calf measurement is 0.3 cm. There is no reflux. LEFT SIDE: GREATER SAPHENOUS VEIN: The left saphenofemoral junction measurement is 0.7 cm. There is no reflux The left proximal thigh measurement is 0.8 cm. There is no reflux. The left mid thigh measurement is 0.3 cm. There is no reflux The left above-knee measurement is 0.2 cm. There is no reflux. The left at knee measurement is 0.2 cm. The reflux time is 3436 cm/s. The left below-knee measurement is 0.2 cm. There is no reflux The left mid calf measurement is 0.4 cm. There is no reflux. The left ankle measurement is 0.5 cm. There is no reflux. LESSER SAPHENOUS VEIN: The left saphenofemoral junction measurement is 0.4 cm. There is no reflux. The left mid calf measurement is 0.4 cm. There is no reflux. The left distal calf measurement is 0.3 cm. There is no reflux. BILATERAL LOWER EXTREMITIES DEEP VENOUS SYSTEMS: The right common femoral, mid femoral and popliteal vein segments show no reflux. No right lower extremity deep venous thrombosis is seen. The left common femoral vein segment shows a reflux time of 744 ms. The left mid femoral and popliteal vein segments show no reflux. No left lower extremity deep venous thrombosis is seen. US/US venous duplex LE BI IMPRESSION: 1. There is hemodynamically significant reflux of the right greater saphenous vein. 2. There is hemodynamically significant reflux of the left greater saphenous vein. 3. No hemodynamically significant reflux is seen of the bilateral lesser saphenous veins. 4. No hemodynamically cemented reflux is seen of the right deep venous system. 5. There is a moderately severe reflux of the left common femoral vein.
== END 2022-11-03 10:17 | disposition home or self-care (01) ==
LOC: HO.US 10:16
PROVIDERS: PCP Internal Medicine; Visit Provider Surgery Vascular Surgery
DX: I83.11 Varicose veins of right lower extremity with inflammation (principal); I83.893 Varicose veins of bilateral lower extremities with other complications
CPT/HCPCS: 93970

== ENCOUNTER → 2022-11-22 15:21 | Outpatient (BNVA) | payer BC, SELFPAY | PROVIDERS: PCP Internal Medicine; Visit Provider Surgery Vascular Surgery | DX: Z13.89 Encounter for screening for other disorder (principal) ==

== ENCOUNTER 2022-12-03 09:40 | Outpatient (REF) | payer BC, SELFPAY ==
[2022-12-03 09:47] LABS: MANUAL DIFF FLAG NO
[2022-12-03 10:25] LABS: Basophils Percent Auto 0.5 % (0-2); Eosinophils Absolute Auto 0.1 X10*3/uL (0.0-0.4); Eosinophils Percent Auto 1.9 % (0-4); Hematocrit 43.8 % (42.0-52.0); Hemoglobin 14.5 g/dl (14.0-18.0); Imm Gran Abs Auto 0.05 X10*3/uL (0.00-0.03); Imm Gran Pct Auto 0.8 % (0.0-0.4); Lymphocytes Absolute Auto 1.5 X10*3/uL (1.2-4.9); Lymphocytes Percent Auto 25.8 % (20-40); Mean Corpuscular HGB Conc 33.1 g/dl (31.0-36.0); Mean Corpuscular Hemoglobin 32.4 pg (27.0-33.0); Mean Corpuscular Volume 97.8 fL (80.0-98.0); Mean Platelet Volume 9.7 fL (9.4-12.4); Monocytes Absolute Auto 0.6 X10*3/uL (0.1-1.2); Monocytes Percent Auto 10.3 % (2-11); Neutrophils Absolute Auto 3.6 x10*3/uL (2.0-8.3); Neutrophils Percent Auto 60.7 % (45-73); Platelet Count 165 X10*3/uL (160-400); Red Blood Count 4.48 X10*6/uL (4.60-5.80); Red Cell Distribution Width 15.4 % (11.0-16.0); Retic HGB Equivalent 38.5 pg (30.0-35.0); Reticulocyte Percent 1.6 % (0.5-1.8); Reticulocytes Absolute 0.073 X10*6/uL (0.026-0.095); White Blood Count 5.9 X10*3/uL (4.8-10.8)
[2022-12-03 10:41] LABS: Alanine Aminotransferase 37 U/L (0-40); Albumin Level 3.9 g/dL (3.5-5.0); Alkaline Phosphatase 59 U/L (39-117); Anion Gap 16 (12-20); Aspartate Amino Transferase 30 U/L (5-37); Bilirubin Total 1.4 mg/dL (0.0-1.0); Blood Urea Nitrogen 12 mg/dL (9-16); Calcium 9.1 mg/dL (8.4-10.2); Carbon Dioxide 23 mmol/L (22-29); Chloride 107 mmol/L (96-108); Cholesterol 191 mg/dL; Estimated Glomerular Filt Rate > 60; Glucose Random 88 mg/dL (60-115); HDL Cholesterol 93 mg/dL; Iron 137 mcg/dL (45-160); LDL Cholesterol Calculated 84 mg/dl; Percent Iron Saturation 37 % (15-50); Potassium 4.2 mmol/L (3.3-5.1); Sodium 141 mmol/L (135-145); Total Iron Binding Capacity 375 mcg/dL (228-428); Triglycerides 71 mg/dL; Unsaturated Iron Binding 238 ug/dL
[2022-12-03 11:21] LABS: Ferritin 59 ng/mL (20-250); Folate 6.3 ng/mL (> or = 4.0); Free T4 (Free Thyroxine) 1.09 ng/dL (0.71-1.85); Prostate Specific Antigen Scr 1.59 ng/mL (<0.05-4.0); Thyroid Stimulating Hormone 1.68 uIU/mL (0.32-4.0); Vitamin B12 424 pg/mL (200-900)
== END 2022-12-03 09:41 | disposition home or self-care (01) ==
LOC: HO.LAB 09:40
PROVIDERS: PCP Internal Medicine; Visit Provider Internal Medicine
DX: Z12.5 Encounter for screening for malignant neoplasm of prostate (principal); I10 Essential (primary) hypertension; E78.00 Pure hypercholesterolemia, unspecified; D64.9 Anemia, unspecified
CPT/HCPCS: 36415; 80053; 80061; 82607; 82728; 82746; 83540; 84153; 84439; 84443; 85025; 85045

== ENCOUNTER → 2022-12-26 07:55 | Outpatient (REF) | payer BC, SELFPAY ==
--- NOTE | 2022-12-26 07:59 | CA_ITS ---
Acquisition Time: 2022-12-26 08:30:23 Total Exercise Time: 00:01:54 Test Indications: E78.00 - Pure hypercholesterole Medications: Protocol: LAISHA Max HR: 142 BPM 95% of Pred: 149 BPM Max BP: 144/078 mmHG Max Work Load: 1.6 METS Exercise stress test with exercise 34 sec of Irving protocol and need to stop as he was unable to keep up with speed of treadmill. Then exercised 1 min 54 sec of Laisha protocol, with moderate shortness of breath and significant artifact noted on monitor, with need to stop, without noted arrythmia, with normotensive response to exercise, with Nondiagnostic EKG for ischemia due to suboptimal heart rate and exercise time. In recovery his breathing normalized. Test reviewed with Dr Dueñas. Message sent to Dr Parikh with results and recommendation for a pharmacological nuclear stress phuong for further evaluation. Referred By: Jennifer Parikh Overread By: LOUISE URBANO
== END ==
LOC: HO.CARD 07:55
PROVIDERS: PCP Internal Medicine; Visit Provider Internal Medicine
DX: E78.00 Pure hypercholesterolemia, unspecified (principal)
CPT/HCPCS: 93017

== ENCOUNTER → 2023-01-13 07:31 | Outpatient (BNVA) | payer BC, SELFPAY | PROVIDERS: PCP Internal Medicine; Visit Provider Surgery Vascular Surgery | DX: I83.11 Varicose veins of right lower extremity with inflammation (principal) | CPT/HCPCS: 36482 ==

== ENCOUNTER 2023-01-17 10:50 | Outpatient (REF) | payer BC, SELFPAY ==
--- NOTE | ~2023-01-17 | US_ITS ---
EXAMINATION: TRIPLEX SCANNING OF RIGHT LOWER EXTREMITY; SUPERFICIAL ULTRASOUND WITH DOPPLER OF RIGHT LOWER EXTREMITY CLINICAL INFORMATION: Status post Venaseal of the right great saphenous vein Ambulatory phlebectomy performed: No COMPARISON: Ultrasound from 11/03/2022. TECHNIQUE: Color flow triplex imaging and compression Doppler were performed as well as superficial ultrasound with Doppler. FINDINGS: RIGHT LOWER EXTREMITY DEEP VENOUS SYSTEM: Respiratory variation, normal compression and augmented flow are noted throughout the lower extremity. The visualized common femoral vein, femoral vein, profunda femoral vein, popliteal vein and the calf veins show no evidence of deep venous thrombosis. There is no evidence of Loja's cyst. SUPERFICIAL VENOUS SYSTEM: The great saphenous vein is occluded from the access site to 2.9 cm before the saphenofemoral junction. There is no extension of thrombus into the deep system. US/US venous duplex LE RT IMPRESSION: 1. No evidence of DVT. 2. Excellent appearance status post ablation of the right great saphenous vein.
== END 2023-01-17 10:51 | disposition home or self-care (01) ==
LOC: HO.US 10:50
PROVIDERS: PCP Internal Medicine; Visit Provider Surgery Vascular Surgery
DX: M79.604 Pain in right leg (principal); R06.00 Dyspnea, unspecified; J98.4 Other disorders of lung; G47.34 Idiopathic sleep related nonobstructive alveolar hypoventilation
CPT/HCPCS: 93971; 94010; 94618

== ENCOUNTER → 2023-01-26 09:14 | Outpatient (BNVA) | payer BC, SELFPAY | PROVIDERS: PCP Internal Medicine; Visit Provider Surgery Vascular Surgery | DX: Z13.89 Encounter for screening for other disorder (principal) ==

== ENCOUNTER 2023-02-01 08:23 | Outpatient (REF) | payer BC, SELFPAY ==
--- NOTE | ~2023-02-01 | CT_ITS ---
EXAMINATION: CT CHEST WITHOUT CONTRAST CLINICAL INFORMATION: Other disorders of the lung COMPARISON: CT chest without contrast 01/04/2018. TECHNIQUE: 5 mm thin axial and reformatted 3 mm thin sagittal and coronal images of chest were obtained without contrast. This CT examination was performed using dose optimization technique as appropriate, variously including the following: Automated exposure control Adjustment of MA and/or KV according to patient size(this includes techniques or standardized protocols for targeted exams where dose is matched to indication/reason for exam; extremities or head. Use of iterative reconstruction techniques. DLP: 240 mGy-cm FINDINGS: LUNGS: The lungs are well-expanded and clear of acute pneumonic process. There is plate-like atelectasis, right middle lobe and lingula.. The high-resolution images are slightly blurred due to breathing artifact. There is minimal intralobular interstitial thickening similar to previous study. There is no bronchiectasis or peribronchial wall thickening. There are punctate 1 mm nodules scattered in both lungs, too small to measure. There is focal atelectatic changes in the right lower lobe superior segment. MEDIASTINUM: The thyroid lobes are symmetric and normal. The central trachea and the bronchi are widely patent. The heart size and the great vessels are normal caliber. Small shotty lymph nodes are seen in the mediastinum. Central trachea and the bronchi widely patent. Heart size and the great vessels are normal caliber. There are coronary artery calcifications present. No pericardial effusion seen. PLEURA: There is no pleural effusion, thickening or calcification. AXILLA: There are small shotty lymph nodes in bilateral axilla. The chest wall is unremarkable. OSSEOUS STRUCTURES: There is no aggressive lytic or sclerotic process. There is an old compression deformity at the T11 vertebra. In addition, there are degenerative disc changes and mild spondylosis, mid and lower dorsal spine. CT/CT chest wo con - High Res IMPRESSION: 1. Mild peripheral interstitial thickening with atelectatic changes. There are scattered 1 mm pulmonary nodules. These findings are stable. 2. Small shotty lymph nodes in the mediastinum and axilla are stable. 3. Mild coronary artery calcifications are stable as well.
== END 2023-02-01 08:24 | disposition home or self-care (01) ==
LOC: HO.CT 08:23
PROVIDERS: PCP Internal Medicine; Visit Provider Internal Medicine
DX: R06.00 Dyspnea, unspecified (principal); J98.4 Other disorders of lung; G47.34 Idiopathic sleep related nonobstructive alveolar hypoventilation
CPT/HCPCS: 71250

== ENCOUNTER 2023-03-07 09:24 | Outpatient (REF) | payer BC, SELFPAY ==
[2023-03-07 10:40] LABS: Alanine Aminotransferase 51 U/L (0-40); Albumin Level 3.9 g/dL (3.5-5.0); Alkaline Phosphatase 56 U/L (39-117); Anion Gap 13 (12-20); Aspartate Amino Transferase 36 U/L (5-37); Bilirubin Total 1.4 mg/dL (0.0-1.0); Blood Urea Nitrogen 11 mg/dL (9-16); Calcium 9.3 mg/dL (8.4-10.2); Carbon Dioxide 24 mmol/L (22-29); Chloride 107 mmol/L (96-108); Cholesterol 180 mg/dL; Estimated Glomerular Filt Rate > 60; Glucose Random 89 mg/dL (60-115); HDL Cholesterol 112 mg/dL; LDL Cholesterol Calculated 57 mg/dl; Potassium 4.3 mmol/L (3.3-5.1); Sodium 140 mmol/L (135-145); Total Protein 7.2 g/dL (6.5-8.0); Triglycerides 58 mg/dL
== END 2023-03-07 09:25 | disposition home or self-care (01) ==
LOC: HO.LAB 09:24
PROVIDERS: PCP Internal Medicine; Visit Provider Internal Medicine
DX: E78.00 Pure hypercholesterolemia, unspecified (principal)
CPT/HCPCS: 36415; 80053; 80061

== ENCOUNTER → 2023-03-31 08:03 | Outpatient (REF) | payer BC, SELFPAY ==
--- NOTE | 2023-03-31 08:06 | CA_ITS ---
Acquisition Time: 2023-03-31 08:08:28 Total Exercise Time: 00:02:00 Test Indications: Dyspnea Medications: METOPROLOL SIMVASTATIN Protocol: LEXISCAN Max HR: 104 BPM 69% of Pred: 149 BPM Max BP: 142/074 mmHG Max Work Load: 1.0 METS Pharmacological stress test with Lexiscan injection while sitting and kicking his legs, without anginal symptoms, without arrhythmias, with normotensive response to injection, without EKG changes. Nuclear images pending. Test reviewed with Dr. Leija. Referred By: Jennifer Parikh Overread By: LOUISE URBANO
== END ==
LOC: HO.CARD 08:03
PROVIDERS: PCP Internal Medicine; Visit Provider Internal Medicine
DX: R06.00 Dyspnea, unspecified (principal)
CPT/HCPCS: 78452; 93017; A9500; J0280; J2785

== ENCOUNTER 2023-05-18 08:56 | Outpatient (AMB) | payer BC, SELFPAY ==
[2023-05-18 08:57] VITALS: BMI 33.5
--- NOTE | 2023-05-18 08:57 | A.OFFVIS_ITS ---
Intake Vital Signs 05/18/23 08:57 Height 6 ft Weight 247 lb BMI 33.5 Intake Visit Reasons: 3 month leg check Intake Note: 3 mo leg check s/p Right GSV Venaseal 01/13/23. Pt states no issues bilateral LE, does have LE swelling and discoloration Accompanied by: Self / Same As Patient Allergies No Known Allergies Allergy (Verified 05/18/23 09:01) HPI 3 month leg check HPI Details Very pleasant 72-year-old gentleman presents for follow-up regarding swollen lower extremities. He had undergone right lower extremity ablation and in general reports that his legs are feeling softer and somewhat more comfortable. He now presents for routine surveillance follow-up to discuss his swollen lower extremities. [facility] Medical History Atrial arrhythmia Loja cyst BPH (benign prostatic hyperplasia) Cholelithiasis Crohn's disease Dyspnea on exertion Edema of lower extremity Essential hypertension Gout Hemophilia History of cataract History of hepatitis C Lymphangitis Nocturnal hypoxemia Obesity (BMI 30-39.9) Osteopenia Parastomal hernia Peripheral vascular disease Renal stones Restrictive lung disease Thrombocytopenia Surgical History H/O tooth extraction H/O wrist surgery History of appendectomy History of cataract surgery History of urethral stent Status post ablation of incompetent vein using laser (01/13/23) Family History Father Prostate cancer Mother Diabetes Maternal Grandfather Factor VIII deficiency hemophilia Social History Household Members: Spouse Household Members Other:: 1 Housing: House Are you a primary furnace caretaker to a significant other at home: No Do you presently have visiting nurse or other home services: No Alcohol intake: current Alcohol intake frequency: holidays/special occasions only Patient Tobacco Use Status: Never used Tobacco e-Cigarette/Vaping Use: Never Used Second Hand Smoke Exposure: No service: No Current occupational status: retired Cognitive needs: No Hearing needs: No Vision needs: Yes Review of Systems Const Reports as per HPI ENT Reports no additional complaints Card Denies chest pain, Denies chest pain at rest and Denies chest pain with activity Resp Denies chest congestion and Denies cough GI Reports no additional complaints Musc Details: pain over varicosities, aching of lower extremities, swelling, cramping, heaviness and tiredness, itching Denies abnormal gait Skin/Breast Reports pruritus and Denies wounds Neuro Reports no additional complaints and Denies abnormal gait Psych Denies no additional complaints Physical Exam Vital Signs: BMI result Body Mass Index 33.5 Const General: cooperative, healthy appearing and comfortable Orientation/consciousness: oriented to person, oriented to place and oriented to time Neck Carotids: no bruits Chest Chest palpation & inspection: normal inspection of the chest and normal palpation of entire chest wall Resp Effort & Inspection: normal respiratory effort and able to speak in complete sentences Cardio Rate: regular rate Heart sounds: S1 normal heart sound present and S2 normal heart sound present Peripheral pulses: Peripheral pulses 2+ throughout GI Inspection: Yes normal to inspection Skin Other: +2 edema General skin exam: dry skin Neuro General: oriented to person, oriented to place and oriented to time Extrem Right lower extremity: full ROM, normal capillary refill and edema Left lower extremity: full ROM, normal capillary refill and edema Psych Mental Status: mental status grossly normal Assessment & Plan Assessment & Plan (1) Varicose veins of right lower extremity with inflammation: Comment: 01/13/2023 - right great saphenous vein Cyanoacralate ablation Code(s): I83.11 - Varicose veins of right lower extremity with inflammation Plan: At the current time he appears to be doing relatively well from a venous perspective he does have somewhat swollen lower extremities but seems to be well managed right now will manage them conservatively. We did discuss routine conservative measures including compression, elevation, and exercise. He will follow up with us on an as-needed basis. (2) Lymphedema: Code(s): I89.0 - Lymphedema, not elsewhere classified Plan: I do believe that he does have an element of lymphedema as well. We did discuss lymphedema pumps. At the current time he would like to manage his legs conservatively. Should the swelling recur would be happy to see him back to try he get him connected to lymphedema pumps. Thank you for allowing us to assist in his care. If there are questions or concerns please do not hesitate to contact us. Coding Level of Care Code Est Pt Level 4 (38953) Diagnoses Varicose veins of right lower extremity with inflammation I83.11 Lymphedema I89.0
== END 2023-05-18 09:35 | disposition home or self-care (01) ==
PROVIDERS: Visit Provider Surgery Vascular Surgery
DX: I83.11 Varicose veins of right lower extremity with inflammation (principal); I89.0 Lymphedema, not elsewhere classified
CPT/HCPCS: 99213

== ENCOUNTER → 2023-05-18 08:56 | Outpatient (BNVA) | payer BC, SELFPAY | PROVIDERS: Visit Provider Surgery Vascular Surgery ==

== ENCOUNTER 2023-06-01 08:44 | Outpatient (AMB) | payer BC, SELFPAY ==
--- NOTE | 2023-06-01 08:46 | A.OFFVIS_ITS ---
Intake Vital Signs 06/01/23 08:48 Height 6 ft Weight 242 lb 8.136 oz BMI 32.9 BP 140/80 H Blood Pressure Location Lt brachial Position Sitting Pulse 82 Intake Visit Reasons: 1 yr f/u with holter Intake Note: 1 year follow up Medical Education Coordinator Required: No Accompanied by: Self / Same As Patient Allergies No Known Allergies Allergy (Verified 06/01/23 08:49) Medication List - Last Reconciled 06/01/23 by Alex Dueñas MD calcium carbonate-vitamin D3 600 mg-5 mcg (200 unit) (Calcium 600 + D(3)) 1 tab PO DAILY cyanocobalamin (vitamin B-12) 250 mcg PO DAILY metoprolol succinate ER 25 mg PO DAILY nystatin apply to ileostomy site topical 2 times a day; potassium citrate ER 20 mEq (2 x 10 mEq (1,080 mg)) PO BID 90 days pyridoxine (vitamin B6) 100 mg PO DAILY 90 days simvastatin 5 mg PO BEDTIME HPI HPI Comments History of Present Illness Details Dirk returns for follow-up regarding atrial arrhythmias. To recall, in the past, he was referred to our office due to irregular heart rh ythm noted in PCP's office. Holter had shown frequent atrial ectopy. Patient states that he is doing fine. No complaints like angina. He has had chronic shortness of breath and that is about the same as before. No changes. No other cardiac complaints. [facility] Medical History Atrial arrhythmia Loja cyst BPH (benign prostatic hyperplasia) Cholelithiasis Crohn's disease Dyspnea on exertion Edema of lower extremity Essential hypertension Gout Hemophilia History of cataract History of hepatitis C Lymphangitis Nocturnal hypoxemia Obesity (BMI 30-39.9) Osteopenia Parastomal hernia Peripheral vascular disease Renal stones Restrictive lung disease Thrombocytopenia Surgical History H/O tooth extraction H/O wrist surgery History of appendectomy History of cataract surgery History of urethral stent Status post ablation of incompetent vein using laser (01/13/23) Family History Father Prostate cancer Mother Diabetes Maternal Grandfather Factor VIII deficiency hemophilia Social History Household Members: Spouse Household Members Other:: 1 Housing: House Are you a primary day care worker to a significant other at home: No Do you presently have visiting nurse or other home services: No Alcohol intake: current Alcohol intake frequency: holidays/special occasions only Patient Tobacco Use Status: Never used Tobacco e-Cigarette/Vaping Use: Never Used Second Hand Smoke Exposure: No service: No Current occupational status: retired Cognitive needs: No Hearing needs: No Vision needs: Yes Review of Systems Const Denies weakness ENT Denies dizziness Card Denies chest pain, Denies chest pain with activity, Denies syncope, Denies rapid heart rate, Denies pedal edema, Denies edema, Denies leg edema, Denies lightheadedness, Denies palpitations, Denies dyspnea, Denies dyspnea on exertion and Denies orthopnea Resp Denies cough, Denies dyspnea and Denies dyspnea on exertion GI Denies hematochezia and Denies change in stool character Musc Denies abnormal gait, Denies muscle cramps, Denies muscle weakness, Denies numbness, Denies radiating pain into limb and Denies tingling Neuro Denies abnormal gait, Denies dizziness, Denies syncope, Denies numbness, Denies tingling and Denies weakness Endo Denies palpitations Physical Exam Vital Signs: Last Vital Signs Pulse 82 06/01/23 08:48 BP 140/80 H 06/01/23 08:48 BMI result Body Mass Index 32.9 Const General: comfortable and no acute distress Orientation/consciousness: patient oriented x3 HEENT Other: Unremarkable Head: Yes normal to inspection Neck Neck: Yes normal visual inspection Chest Chest palpation & inspection: normal inspection of the chest Resp Auscultation: clear to auscultation bilaterally Cardio Palpation: normal PMI Heart sounds: S1 normal heart sound present, S2 normal heart sound present, no gallops, no murmurs and no rubs GI Palpation (GI): Soft to palpation Back/Spine/Pelvis Other: unremarkable Skin General skin exam: no rashes or lesions noted Neuro General: patient oriented x3 Extrem General: Yes normal to inspection Psych Mental Status: mental status grossly normal Office Procedures EKG Details: EKG with sinus rhythm at 82/Min; no significant ST-T changes and otherwise unremarkable. [place] [id number], Complete Assessment & Plan Assessment & Plan (1) Atrial arrhythmia: Code(s): I49.8 - Other specified cardiac arrhythmias Plan: In the past, Holter shown significant atrial ectopy, almost 41% with some PAT but more recently not much. Preserved LVEF on the last echocardiogram with mild aortic regurgitation. Prior home sleep study did not show any obvious sleep apnea. Repeated and this shows some hypoxemia but no clear obstructive sleep apnea. He remains on a small dose of beta-blockers. Otherwise, primarily weight loss and we discussed about this today. (2) Essential hypertension: Code(s): I10 - Essential (primary) hypertension Plan: In the past, had been on lisinopril but do not see in his list. Blood pressure is slightly on the higher side. Home blood pressures also similar. Hence try amlodipine. (3) Obesity (BMI 30-39.9): Code(s): E66.9 - Obesity, unspecified Plan: Continue efforts to lose weight. We discussed about this today. Plan Total time spent including review of data, counseling, documentation, coordination of care-31 minutes. Medications: New amlodipine 2.5 mg PO DAILY 90 tabs 3RF Coding Level of Care Code Est Pt Level 4 (33723) Diagnoses Atrial arrhythmia I49.8 Essential hypertension I10 Obesity (BMI 30-39.9) E66.9 CPT Codes EKG - CPT: [id number], Complete ([id number])
[2023-06-01 08:48] VITALS: BP 140/80; PULSE 82; BMI 32.9
== END 2023-06-01 09:09 | disposition home or self-care (01) ==
PROVIDERS: PCP Internal Medicine; Referring Provider Internal Medicine; Visit Provider Internal Medicine
DX: I49.8 Other specified cardiac arrhythmias (principal); I10 Essential (primary) hypertension; E66.9 Obesity, unspecified
CPT/HCPCS: 93010; 99214

== ENCOUNTER → 2023-06-01 08:44 | Outpatient (BNVA) | payer BC, SELFPAY | PROVIDERS: PCP Internal Medicine; Referring Provider Internal Medicine; Visit Provider Internal Medicine | DX: I49.8 Other specified cardiac arrhythmias (principal); R06.00 Dyspnea, unspecified; I10 Essential (primary) hypertension; E66.9 Obesity, unspecified; Z68.32 Body mass index [BMI] 32.0-32.9, adult | CPT/HCPCS: 93005 ==

== ENCOUNTER 2023-06-12 08:56 | Outpatient (REF) | payer BC, SELFPAY ==
--- NOTE | ~2023-06-12 | US_ITS ---
EXAMINATION: US RETROPERITONEAL LIMITED (RENAL ONLY) CLINICAL INFORMATION: Calculus of kidney. COMPARISON: Ultrasound retroperitoneal limited (renal only) 06/02/2022 TECHNIQUE: Real-time imaging of the kidneys. FINDINGS: RIGHT KIDNEY: 10.7 x 5.3 x 3.6 cm (SAG x AP x TRV). The kidney is normal in size, contour, and echogenicity. Renal cortical thickness is normal. No focal parenchymal lesions or hydronephrosis. Nonobstructing midpole renal stones increased in size from prior measuring up to 1.3 cm, previously 0.9 cm. LEFT KIDNEY: 12.1 x 5.9 x 6.4 cm (SAG x AP x TRV). The kidney is normal in size, contour, and echogenicity. Renal cortical thickness is normal. No hydronephrosis. 9 mm nonobstructing lower pole renal stone, previously 0.4 cm. Likely benign renal cyst measuring 3.3 cm with few thin internal septations. No follow up imaging is recommended. US/US renal BI IMPRESSION: Nonobstructing stones measuring up to 1.3 cm on the right increased in size from prior..
== END 2023-06-12 08:57 | disposition home or self-care (01) ==
LOC: HO.US 08:56
PROVIDERS: Visit Provider Urology
DX: N20.0 Calculus of kidney (principal)
CPT/HCPCS: 76775

== ENCOUNTER 2023-06-22 13:06 | Outpatient (AMB) | payer BC, SELFPAY ==
--- NOTE | 2023-06-22 13:06 | A.OFFVIS_ITS ---
Intake Intake Visit Reasons: 1Y US(set) Intake Note: Patient presents today for a follow-up on US Results, completed on 06/15/2023: Meds- Vitamin B6 Allergies to Antibiotic- No Known Allergies Blood Thinner- None Tile Setter Required: No Accompanied by: Self / Same As Patient Allergies No Known Allergies Allergy (Verified 06/22/23 13:07) Medication List - Last Reconciled 06/22/23 by Allen Medrano MD amlodipine 2.5 mg PO DAILY calcium carbonate-vitamin D3 600 mg-5 mcg (200 unit) (Calcium 600 + D(3)) 1 tab PO DAILY cyanocobalamin (vitamin B-12) 250 mcg PO DAILY metoprolol succinate ER 25 mg PO DAILY nystatin apply to ileostomy site topical 2 times a day; potassium citrate ER 20 mEq (2 x 10 mEq (1,080 mg)) PO BID 90 days pyridoxine (vitamin B6) 100 mg PO DAILY 90 days simvastatin 5 mg PO BEDTIME HPI HPI Comments History of Present Illness Details Dirk is 72-year-old male who presents today to the office via Tele- health visit for a follow-up. 06/22/2023? He is followed today via Tele-health for US results. He has seen Armani Kenyon on 06/17/2022 for renal stones. The patient was advised to continue medication, and surveillance imaging at that time. He denies any hematuria. He denies any pain while urination. He states that he is voiding without any difficulty. I reviewed the renal US results from 06/12/2023 revealed nonobstructing stones measuring up to 1.3 cm on the right increased in size from prior. I reviewed the PSA results from 12/03/2022 revealed 1.59 ng/mL. I reviewed the lab work results from 03/07/2023 revealed BUN 11, and creatinine 0.97, and potassium 4.3. I reviewed the stone analysis from previous specimen showed 80 % uric stone and 20 % calcium oxalates stone. Plan: I discussed plan to get a CT scan stone protocol in 3 months with a Tele-health visit. Continue potassium citrate and vitamin B6. [facility] Medical History Lymphangitis Edema of lower extremity Parastomal hernia Obesity (BMI 30-39.9) Dyspnea on exertion Nocturnal hypoxemia Restrictive lung disease Essential hypertension Atrial arrhythmia Hemophilia Loja cyst Renal stones History of cataract BPH (benign prostatic hyperplasia) Gout Crohn's disease Peripheral vascular disease Thrombocytopenia History of hepatitis C Cholelithiasis Osteopenia Surgical History Status post ablation of incompetent vein using laser (01/13/23) H/O tooth extraction History of appendectomy History of urethral stent History of cataract surgery H/O wrist surgery Family History Father Prostate cancer Mother Diabetes Maternal Grandfather Factor VIII deficiency hemophilia Social History Household Members: Spouse Household Members Other:: 1 Housing: House Are you a primary child day care provider to a significant other at home: No Do you presently have visiting nurse or other home services: No Alcohol intake: current Alcohol intake frequency: holidays/special occasions only Patient Tobacco Use Status: Never used Tobacco e-Cigarette/Vaping Use: Never Used Second Hand Smoke Exposure: No service: No Current occupational status: retired Cognitive needs: No Hearing needs: No Vision needs: Yes Review of Systems Const All systems reviewed & are unremarkable except as noted in HPI and below Reports no additional complaints Eyes Reports no additional complaints ENT Reports no additional complaints Card Denies dyspnea Resp Denies cough and Denies dyspnea GI Reports no additional complaints Musc Reports no additional complaints Skin/Breast Denies rash and Denies unusual bruising Neuro Reports no additional complaints Psych Reports no additional complaints Endo Reports no additional complaints Tod/Lymph Reports no additional complaints Aller/Immun Reports no additional complaints Results Reviewed Results Reviewed: Date of Service: 06/12/23 EXAMINATION:? US RETROPERITONEAL LIMITED (RENAL ONLY) CLINICAL INFORMATION: Calculus of kidney. COMPARISON:? Ultrasound retroperitoneal limited (renal only) 06/02/2022? FINDINGS: RIGHT KIDNEY: 10.7 x 5.3 x 3.6 cm (SAG x AP x TRV). The kidney is normal in size, contour, and echogenicity. Renal cortical thickness is normal. No focal parenchymal lesions or hydronephrosis. Nonobstructing midpole renal stones increased in size from prior measuring up to 1.3 cm, previously 0.9 cm. LEFT KIDNEY: 12.1 x 5.9 x 6.4 cm (SAG x AP x TRV). The kidney is normal in size, contour, and echogenicity. Renal cortical thickness is normal. No hydronephrosis. 9 mm nonobstructing lower pole renal stone, previously 0.4 cm. Likely benign renal cyst measuring 3.3 cm with few thin internal septations. No follow up imaging is recommended. IMPRESSION:? Nonobstructing stones measuring up to 1.3 cm on the right increased in size from prior.. Assessment & Plan Assessment & Plan (1) Bilateral kidney stones: Comment: 06/13/2023 right kidney 1.3 cm left kidney 9 mm Code(s): N20.0 - Calculus of kidney (2) Renal cyst, left: Code(s): N28.1 - Cyst of kidney, acquired (3) Screening PSA (prostate specific antigen): Code(s): Z12.5 - Encounter for screening for malignant neoplasm of prostate Plan I discussed plan to get a scan stone protocol in 3 months with a Tele-health visit. Continue potassium citrate and vitamin B6.? Orders: Orders CT abdomen pelvis wo IV con 3 Months N20.0 - Calculus of kidney Medications: Refilled potassium citrate ER 20 mEq (2 x 10 mEq (1,080 mg)) PO BID 360 tabs 3RF 90 days N20.0 - Calculus of kidney Patient Instructions: The patient had an opportunity to ask questions regarding treatment plan. All questions were answered. Imaging, Laboratory studies and physical exam results were discussed and reviewed in detail. No major barriers to understanding were identified. The patient expressed understanding and agreement with the above treatment plan.? ? ? The patient is aware they should contact our office by phone for worsening of their current condition or the appearance of new symptoms. Compliance is encouraged with any medications and followup testing that is ordered.? ? ? It is a privilege to be allowed the opportunity to participate in the urologic care of your patient. If you have any questions or concerns regarding treatment for the above conditions please do not hesitate to contact me. The office telephone contact is [phone].? ? ? This note is constructed in part using voice recognition software. While every effort has been made to ensure accuracy flooring installer errors may have been included.? ? ? Yours sincerely,? ? ? Allen Medrano MD? ? Telehealth Telehealth Location of provider rendering services: practice address Location of patient: address on file Patient Identification confirmed using: Name, : Yes Telehealth method: voice only Patient verbally consented to treatment: Yes Patient verbally consented to billing insurance company: Yes Patient informed of any privacy concerns related to visit: Yes Minutes spent on Phone/Video with Pt.: 20 Coding Level of Care Code Tele Est Pt Level 4 (55730) Diagnoses Bilateral kidney stones N20.0 Renal cyst, left N28.1 Screening PSA (prostate specific antigen) Z12.5
== END 2023-06-22 14:26 | disposition home or self-care (01) ==
LOC: HO.HUSH 13:06
PROVIDERS: PCP Internal Medicine; Visit Provider Urology
DX: N20.0 Calculus of kidney (principal); N28.1 Cyst of kidney, acquired; Z12.5 Encounter for screening for malignant neoplasm of prostate
CPT/HCPCS: 99442

== ENCOUNTER → 2023-06-22 13:06 | Outpatient (BNVA) | payer BC, SELFPAY | PROVIDERS: PCP Internal Medicine; Visit Provider Urology ==

== ENCOUNTER 2023-07-03 15:51 | Outpatient (AMB) | payer BC, SELFPAY ==
[2023-07-03 15:54] VITALS: BP 130/80; PULSE 98; O2SAT 97; BMI 33.9
--- NOTE | 2023-07-03 15:54 | A.OFFPC_ITS ---
Vital Signs 07/03/23 15:54 Height 6 ft Weight 250 lb BMI 33.9 BP 130/80 Blood Pressure Location Lt brachial Position Sitting Pulse 98 Pulse Source Pulse Oximeter Temp Source Skin Pulse Oximetry (%) 97 Oxygen Delivery Method Room Air Intake Visit Reasons: 3 months F/U sob on exertion Allergies No Known Allergies Allergy (Verified 06/22/23 13:07) Medication List - Last Reconciled 07/03/23 by Jennifer aPrikh MD calcium carbonate-vitamin D3 600 mg-5 mcg (200 unit) (Calcium 600 + D(3)) 1 tab PO DAILY cyanocobalamin (vitamin B-12) 250 mcg PO DAILY lisinopril 5 mg PO DAILY metoprolol succinate ER 25 mg PO DAILY nystatin apply to ileostomy site topical 2 times a day; potassium citrate ER 20 mEq (2 x 10 mEq (1,080 mg)) PO BID 90 days pyridoxine (vitamin B6) 100 mg PO DAILY 90 days simvastatin 5 mg PO BEDTIME Tobacco use date assessed: 07/03/23 Fall risk assessment: No Falls in past year Last assessed Fall Risk: 07/03/23 Dental Screening Dental Screen Date: 07/03/23 Did you have a dental visit in the last 12 months?: Yes Did you have a dental problem in the last 6 months where you did not have access to dental care?: No Was dental information given to patient?: Patient has dentist HPI 3 months F/U sob on exertion HPI0 Details 72-year-old obese male with hypercholest erolemia fatty liver hypertension and gout last seen in March 2023. Review of the notes follows up with urology having a history of renal calculi advised to get an CT scan. Patient was placed on potassium citrate also. Ultrasound in June 13 did show a right kidney stone 1.3 cm previously 0.9 cm left kidney stone 9 mm lower pole previously 0.4 cm. Patient was seen by Cardiology also June 01 patient was placed on amlodipine 2.5 mg once a day patient had the a myocardial stress test April 2023 revealing normal perfusion. [facility] Medical History Lymphangitis Edema of lower extremity Parastomal hernia Obesity (BMI 30-39.9) Dyspnea on exertion Nocturnal hypoxemia Restrictive lung disease Essential hypertension Atrial arrhythmia Hemophilia Loja cyst Renal stones History of cataract BPH (benign prostatic hyperplasia) Gout Crohn's disease Peripheral vascular disease Thrombocytopenia History of hepatitis C Cholelithiasis Osteopenia Surgical History Status post ablation of incompetent vein using laser (01/13/23) H/O tooth extraction History of appendectomy History of urethral stent History of cataract surgery H/O wrist surgery Family History Father Prostate cancer Mother Diabetes Maternal Grandfather Factor VIII deficiency hemophilia Social History Household Members: Spouse Household Members Other:: 1 Housing: House Are you a primary home care scheduler to a significant other at home: No Do you presently have visiting nurse or other home services: No Alcohol intake: current Alcohol intake frequency: holidays/special occasions only Patient Tobacco Use Status: Never used Tobacco e-Cigarette/Vaping Use: Never Used Second Hand Smoke Exposure: No service: No Current occupational status: retired Cognitive needs: No Hearing needs: No Vision needs: Yes Questionnaire Thrive Questionnaire Date Thrive assessed: 12/19/22 AUDIT C Alcohol Use Questionnaire (AUDIT-C) 1. How often do you have a drink containing alcohol?: Monthly or less 2. How many drinks containing alcohol do you have on a typical day when you are drinking?: 1 or 2 3. How often do you have six or more drinks on one occasion?: Never Total Score: 1 MARISOL-7 AMB Questionnaire MARISOL-7 Date MARISOL - 7 assessed: 10/24/22 Source: Developed by Drs. Rowdy Lugo, Georgie Braun, Willie Stevenson and colleagues, with an educational trinidad from [employer]. Physical exam (Primary Care) Vital Signs: Last Vital Signs Pulse 98 07/03/23 15:54 BP 130/80 07/03/23 15:54 Pulse Ox 97 07/03/23 15:54 Oxygen Delivery Method Room Air 07/03/23 15:54 BMI result Body Mass Index 33.9 Tobacco/Smoking Status: Tobacco use Status Tobacco use date assessed 07/03/23 07/03/23 16:09 Patient Tobacco Use Status Never used Tobacco 07/03/23 15:54 e-Cigarette/Vaping Use Never Used 07/03/23 15:54 Thrive Assessment: Date of Thrive Assessment Date Thrive assessed 12/19/22 07/03/23 15:54 Const General: alert; No acute distress Eyes Conjunctivae: conjunctivae normal Resp Auscultation: clear to auscultation bilaterally Cardio Rate: regular rate Rhythm: regular rhythm GI Inspection: Yes normal to inspection Extrem General: Yes normal to inspection and No edema Office Procedures Flu Questionnaire Does the patient have a severe egg allergy?: No Does the patient have severe life threatening allergies?: No Does the patient have a fever or illness today?: No Has the patient ever had Guillain-Chaffee Syndrome?: No Has the patient ever had any past reaction to a flu shot?: No Immunizations flu vacc [id number] 6mos up(PF) 60 mcg(15 mcgx4)/0.5 mL IM syringe Performing Provider: Jennifer Parikh MD Performing Location: [facility] Administered by: ANNI Herrera on 07/03/23 16:09 Dose Route Admin Location Dispensed Lot Number Expiration Date NDC Shoe Sprayer 0.5 mL IM Left Deltoid 0.5 mL [id number] 03/31/24 69535-815-13 [employer] VIS Given Date VIS Provided VIS Publication Date 07/03/23 Single Vaccine 21 Eligibility Eligibility Date Funding Source Not [facility] Eligible 07/03/23 Private Assessment and Plan Assessment & Plan (1) Bilateral kidney stones: Comment: 06/13/2023 right kidney 1.3 cm left kidney 9 mm Code(s): N20.0 - Calculus of kidney Plan: Patient follows up with urology and planned CT scan (2) Hypercholesteremia: Code(s): E78.00 - Pure hypercholesterolemia, unspecified Plan: Avoid fried foods, chicken skin, eggs, butter margarine, pastries and meat. Be it pork or beef they have a lot of cholesterol on simvastatin 5 mg once a day (3) SVT (supraventricular tachycardia): Code(s): I47.1 - Supraventricular tachycardia Plan: Patient follows up with Cardiology on metoprolol 25 mg once a day and amlodipine 2.5 mg once a day (4) Obesity (BMI 30-39.9): Comment: PATIENT IS MODERATELY OBESE THERE HAS BEEN NO RECENT INCREASE IN HIS WEIGHT. I MADE HIM AWARE THAT HE SHOULD LOSE ABOUT 10 LB OF WEIGHT Code(s): E66.9 - Obesity, unspecified Plan: Diet and exercise (5) Essential hypertension: Code(s): I10 - Essential (primary) hypertension Plan: Continue with blood pressure medication. Decrease salt intake and exercise patient has been placed on amlodipine but with the leg swelling advised to stop this and placed back on lisinopril 5 mg once a day. Orders: Orders Influenza [id number] Immunization Today Z23 - Encounter for immunization Complete Blood Count Auto Diff 2 Months I10 - Essential (primary) hypertension Comprehensive Met. Panel 2 Months I10 - Essential (primary) hypertension Thyroid Stimulating Hormone 2 Months I10 - Essential (primary) hypertension Free T4 (Free Thyroxine) 2 Months I10 - Essential (primary) hypertension Magnesium 2 Months I10 - Essential (primary) hypertension Medications: New lisinopril 5 mg PO DAILY 90 tabs 1RF I10 - Essential (primary) hypertension Discontinued amlodipine Discontinued Reason: Patient Refused 2.5 mg PO DAILY 90 tabs 3RF Coding Level of Care Code Est Pt Level 4 (38443) Diagnoses Bilateral kidney stones N20.0 Hypercholesteremia E78.00 SVT (supraventricular tachycardia) I47.1 Obesity (BMI 30-39.9) E66.9 Essential hypertension I10
== END 2023-07-03 16:48 | disposition home or self-care (01) ==
PROVIDERS: PCP Internal Medicine; Visit Provider Internal Medicine
DX: Z23 Encounter for immunization (principal); E78.00 Pure hypercholesterolemia, unspecified; I47.1 Supraventricular tachycardia; I10 Essential (primary) hypertension
CPT/HCPCS: 90471; 90686; 99214

== ENCOUNTER 2023-08-17 10:25 | Inpatient (IN) | payer BC, MEDICARE, SELFPAY ==
[2023-08-17] VITALS (12 sets, daily range): BP systolic 77–127; BP diastolic 35–64; PULSE 86–110; RESP 14–29; TEMP 35.6–36.6; O2SAT 96–100; BMI 30.3
--- NOTE | ~2023-08-17 | XR_ITS ---
EXAMINATION: XR CHEST CLINICAL INFORMATION: Dyspnea COMPARISON: CT chest 02/01/2023 TECHNIQUE: Frontal view of the chest was obtained. FINDINGS: Volume loss right hemithorax with elevation of the right hemidiaphragm. This is unchanged from the prior study and appears chronic. I would recommend a well centered nonrotated PA and lateral film when clinically feasible for optimal evaluation. Heart size borderline with normal caliber pulmonary vessels. XR/XR chest 1V IMPRESSION: Apparent stable chronic changes noted. Recommend follow-up PA lateral, preferably nonrotated.
--- NOTE | ~2023-08-17 | CT_ITS ---
EXAMINATION: CT ABDOMEN AND PELVIS WITHOUT CONTRAST CLINICAL INFORMATION: Flank pain. COMPARISON: Renal ultrasound 06/12/2023. MR abdomen 12/21/2021. CT abdomen/pelvis 09/25/2019. TECHNIQUE: Multidetector volumetric imaging was performed from the superior aspect of the liver through the pubic symphysis. Sagittal and coronal reformatted images were obtained on the technologist's workstation. This CT examination was performed using dose optimization techniques as appropriate, variously including the following: *Automated exposure control *Adjustment of mA and/or kV according to patient size (this includes techniques or standardized protocols for targeted exams where dose is matched to indication/reason for exam; i.e. extremities or head) *Use of iterative reconstruction technique DLP: 769 mGy-cm FINDINGS: The lack of intravenous contrast limits evaluation of the solid visceral organs including the liver, spleen, pancreas, and kidneys. LUNG BASES: No focal consolidation or pleural effusion. Partially imaged coronary artery calcifications. LIVER, GALLBLADDER, AND BILIARY TREE: Decreased attenuation of liver parenchyma most consistent with hepatic steatosis. Otherwise, the liver is normal in size and shape. Cholelithiasis without significant pericholecystic inflammatory changes to suspect acute cholecystitis. No biliary ductal dilatation. PANCREAS: Limited noncontrast examination. No significant peripancreatic fat stranding or free fluid. No main duct dilatation. SPLEEN: Normal size. ADRENAL GLANDS: No adrenal mass. KIDNEYS AND URETERS: Multiple nonobstructive bilateral renal calculi approximately in the order of 5 in the right kidney and 3 in the left kidney largest measuring 1 cm in the interpolar right kidney (4:243) and 1.2 cm in the lower left kidney (4:261). Redemonstration of a 2.7 cm simple fluid attenuating cyst in the lateral left kidney with thin peripheral calcifications, unchanged compared to 09/25/2019, classified as a Bosniak 2 cyst for which no imaging follow-up is recommended. No significant perinephric fat stranding. BLADDER: Unremarkable. GASTROINTESTINAL TRACT: Status post colectomy. Redemonstration of a right lower quadrant ileostomy with a large parastomal hernia containing omental fat and nonobstructed loops of the small bowel, not significantly changed compared to 09/25/2019. No evidence of bowel obstruction. ABDOMINAL WALL: As above, large right abdominal parastomal hernia. Small fat-containing right inguinal hernia. LYMPH NODES: Asymmetric prominent right common iliac lymph node anterior to the psoas muscle with a benign morphology measuring 0.9 cm in short axis (4:444) is unchanged since 09/25/2019. No enlarging lymph nodes. Chronic asymmetric thickening with associated hyperdensities in the right paracolic gutter (4:386) unchanged compared to 09/25/2019, most likely postsurgical. VASCULAR: Normal caliber abdominal aorta. Scattered atherosclerotic disease. PELVIC VISCERA: Enlarged prostate, transverse diameter of 5.2 cm, with stable dystrophic calcifications. Redemonstration of 2 metallic clips posterior to the prostate gland, similar compared to 09/25/2019. OSSEOUS STRUCTURES: Decreased bone mineralization. Compression deformities at T10 and T12, unchanged compared to 09/25/2019. No acute or aggressive appearing osseous findings. Degenerative changes of the spine. CT/CT abdomen pelvis wo IV con IMPRESSION: 1. Nonobstructive bilateral renal calculi. 2. Hepatic steatosis. 3. Cholelithiasis but no evidence of acute cholecystitis. 4. Status post colectomy with a right lower quadrant ileostomy and large parastomal hernia containing omental fat and nonobstructed loops of small bowel, not significantly changed compared to 09/25/2019. 5. Prostatomegaly. 6. Chronic compression deformities at T10 and T12, unchanged compared to 09/25/2019.
--- NOTE | 2023-08-17 11:03 | ECG_ITS ---
Test Reason : dyspnea Blood Pressure : / mmHG Vent. Rate : 087 BPM Atrial Rate : 308 BPM P-R Int : 000 ms QRS Dur : 098 ms QT Int : 350 ms P-R-T Axes : 260 002 034 degrees QTc Int : 421 ms Atrial flutter with variable A-V block Low voltage QRS RSR' or QR pattern in V1 suggests right ventricular conduction delay Nonspecific ST abnormality Abnormal ECG When compared with ECG of 07-AUG-2019 15:01, Atrial flutter has replaced Sinus rhythm Referred By: Chyna Gaviria Electronically Signed By:MANNY GAONA MD
[2023-08-17] MEDS: 0.9 % Sodium Chloride 3,129.78 ML 3129.78 ML IV (11:11)
--- NOTE | 2023-08-17 11:12 | ED_ITS ---
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 No fevers or chills. He has no diarrhea or black or bloody stools. No issues urinating. His upper back is not pleuritic and it does hurt to walk. He denies sick contacts. He states he took his metoprolol when he wasn't feeling well. His notes he has had no appetite and is not eating or drinking for a couple of weeks and it has worsened. did urinate this AM MD complaint: dizziness, weakness Onset (ago): day(s) (few) Radiation: non-radiation Severity: moderate Quality: dull Pain Consistency: intermittent Relieving factors: rest Exacerbating factors: movement Associated symptoms: other (back pain) Treatments prior to arrival: none Related Data Home Medications Medication Instructions Recorded Confirmed calcium carbonate 600 mg-vitamin 1 tab PO DAILY 08/03/20 07/03/23 D3 5 mcg (200 unit) tablet (Calcium 600 + D(3)) cyanocobalamin (vitamin B-12) 250 250 mcg PO DAILY 08/03/20 07/03/23 mcg lozenges nystatin 100,000 unit/gram topical See Rx Instructions topical BID 08/04/22 07/03/23 powder PRN Skin Irritation Previous Rx's Medication Instructions Recorded pyridoxine (vitamin B6) 100 mg 100 mg PO DAILY 90 days #90 tabs 06/17/22 tablet metoprolol succinate 25 mg 25 mg PO DAILY #90 tabs 05/04/23 tablet,extended release 24 hr simvastatin 5 mg tablet 5 mg PO BEDTIME #30 tabs 05/05/23 potassium citrate 10 mEq (1,080 20 meq (2 x 10 mEq (1,080 mg)) PO 06/22/23 mg) tablet,extended release BID 90 days #360 tabs lisinopril 5 mg tablet 5 mg PO DAILY #90 tabs 07/03/23 Allergies Allergy/AdvReac Type Severity Reaction Status Date / Time No Known Allergies Allergy Verified 06/22/23 13:07 Review of Systems 2 Review of Systems: Constitutional : No Weight loss, No Fever, No Chills, ENT/Mouth : No Hearing loss, No Ear Pain, No Nasal Congestion, No Sinus Pain, No Hoarseness, No sore throat, No Rhinorrhea, No Swallowing Difficulty Cardiovascular : No Chest Pain, pos SOB Respiratory : No Cough, No Dyspnea Gastrointestinal : No Nausea, No Vomiting, No Diarrhea, No abdominal Pain, No Hematochezia, No Melena Genitourinary : No Dysuria, No Urinary Frequency, No Hematuria, No Urinary Incontinence, Musculoskeletal : positive back pain Skin : No Skin Lesions, No rash Neuro : pos Weakness, No Numbness, No Paresthesias, no loss of bowel or bladder incontinence, no saddle anesthesia, pos dizziness All other systems reviewed and are negative PMFSH Past Medical History Attestation statement: The following information was validated with the patient. Source: old records reviewed Medical History Lymphangitis Edema of lower extremity Parastomal hernia Obesity (BMI 30-39.9) Dyspnea on exertion Nocturnal hypoxemia Restrictive lung disease Essential hypertension Atrial arrhythmia Hemophilia Loja cyst Renal stones History of cataract BPH (benign prostatic hyperplasia) Gout Crohn's disease Peripheral vascular disease Thrombocytopenia History of hepatitis C Cholelithiasis Osteopenia Surgical History Status post ablation of incompetent vein using laser (01/13/23) H/O tooth extraction History of appendectomy History of urethral stent History of cataract surgery H/O wrist surgery Family History Family History Father Prostate cancer Mother Diabetes Maternal Grandfather Factor VIII deficiency hemophilia Social History Social History Household Members: Spouse Household Members Other:: 1 Housing: House Are you a primary floor care specialist to a significant other at home: No Do you presently have visiting nurse or other home services: No Alcohol intake: current Alcohol intake frequency: 3 or more drinks per day Alcohol type: beer Patient Tobacco Use Status: Never used Tobacco Smoked in Last 30 Days: No e-Cigarette/Vaping Use: Never Used Second Hand Smoke Exposure: No Use of substances other than those prescribed or required for medical reasons: No Advance Directives: No Advance Directives Information Provided: Yes service: No Current occupational status: retired Cognitive needs: No Hearing needs: No Vision needs: Yes Physical Exam ED Vital Signs: Vital Signs - 24 hr 08/17/23 10:33 08/17/23 10:49 08/17/23 11:13 Temperature 96.1 F L 97.5 F Pulse Rate 104 H 104 H 88 Respiratory Rate 17 19 14 Blood Pressure 77/35 L 84/46 L 91/48 L Pulse Oximetry 99 99 100 Oxygen Delivery Method Room Air Room Air Room Air 08/17/23 11:46 08/17/23 12:19 08/17/23 12:55 Temperature Pulse Rate 96 101 H 106 H Respiratory Rate 16 18 20 Blood Pressure 93/57 L 103/57 L 104/56 L Pulse Oximetry 98 97 Oxygen Delivery Method Room Air Room Air BMI result Body Mass Index 30.3 Appearance: Alert. Oriented X3. No acute distress. Eyes: Pupils equal, round and reactive to light. ENT: Pharynx dry MM Neck: Normal inspection. Neck supple. CVS: irregular heart rate and rhythm. Pulses normal. Respiratory: No respiratory distress. Breath sounds R base diminished Abdomen: Soft and nontender. Back: I cannot reproduce pain no midline spinal ttp Skin: Skin warm and dry. Normal skin color. poor skin turgor. Extremities: No lower extremity edema. Neuro: Oriented X 3. No motor deficit. No sensory deficit. Course Course Course Narrative: age adjusted ddimer negative Reevaluation(s) Reevaluation #1: CT scan ordered for obstructive stone helton ordered per Dr. Richard andres to get helton without giving factor first Reevaluation #2: 250cc of urine in helton Reevaluation #3: BP improved Medications Administered Discontinued Medications Generic Name Dose Route Start Last Admin Trade Name Freq PRN Reason Stop Dose Admin Sodium Chloride 3,129.78 mls @ 3,129.78 mls/hr 08/17/23 11:03 08/17/23 11:11 Ns 30 ml/kg infuse over 1 hr (3129.78 ml) 08/17/23 12:02 3,129.78 mls/hr IV Administration .Q1H STA Ceftriaxone Sodium 1 gm/ 50 mls @ 100 mls/hr 08/17/23 11:33 08/17/23 12:51 Sodium Chloride IV 08/17/23 12:02 Infused ONCE ONE Infusion Lidocaine HCl 10 ml 08/17/23 12:06 08/17/23 12:51 Lidocaine Hcl 2 % Urojet 10 Ml Jel.Pf.[place] TOPICAL 08/17/23 12:07 10 ml ONCE ONE Administration Medical Decision Making Medical Decision Making [facility] Narrative: 73 yo male with PMH of afib, HLD, PAD, 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 ddimer, CXR and CT abdomen for infection/stone. Differential Diagnosis Differential Diagnoses: The differential diagnosis associated with the presentation includes UTI, renal colic, pneumonia, mass, effusion Admission/Observation Consideration of admission/observation: Escalation of care including admission/observation considered admit for further management Consult Healthcare Provider Management of the patient was discussed with: Hospitalist (admit) and Cloth Washer Back Tender (Dr. Rivera notified) Lab Data [facility] Lab Attestation statement: I reviewed the patient's lab results. 08/17/23 11:08 08/17/23 11:08 Labs: Lab Results 08/17/23 08/17/23 08/17/23 Range/Units 11:08 11:25 12:53 WBC 8.6 (4.8-10.8) X10*3/uL RBC 3.93 L (4.60-5.80) X10*6/uL Hgb 12.9 L (14.0-18.0) g/dl Hct 37.6 L (42.0-52.0) % MCV 95.7 (80.0-98.0) fL MCH 32.8 (27.0-33.0) pg MCHC 34.3 (31.0-36.0) g/dl RDW 12.8 (11.0-16.0) % Plt Count 187 (160-400) X10*3/uL MPV 9.9 (9.4-12.4) fL Immature Gran % (Auto) 0.8 H (0.0-0.4) % Neut % (Auto) 71.0 (45-73) % Lymph % (Auto) 17.8 L (20-40) % [place] % (Auto) 9.3 (2-11) % Eos % (Auto) 0.8 (0-4) % Baso % (Auto) 0.3 (0-2) % Lymph # (Auto) 1.5 (1.2-4.9) X10*3/uL [place] # (Auto) 0.8 (0.1-1.2) X10*3/uL Eos # (Auto) 0.1 (0.0-0.4) X10*3/uL Baso # (Auto) 0.0 (0.0-0.2) X10*3/uL Abs Immat Gran (auto) 0.07 H (0.00-0.03) X10*3/uL Absolute Neuts (auto) 6.1 (2.0-8.3) x10*3/uL Absolute Nucleated RBC 0.000 (0.0-0.012) X10*3/uL Nucleated RBC % (auto) 0.0 (0.0-0.2) /100WBC PT 11.0 L (11.1-13.3) SEC INR 0.9 (0.9-1.1) D-Dimer High Sensitivty 277 NG/ML Sodium 130 L (135-145) mmol/L Potassium 5.2 H D (3.3-5.1) mmol/L Chloride 97 (96-108) mmol/L Carbon Dioxide 15 L (22-29) mmol/L Anion Gap 23 H (12-20) BUN 98 H (9-16) mg/dL Creatinine 9.73 H* (0.5-1.4) mg/dL Estim Creat Clear Calc 8.7 Estimated GFR 5 Random Glucose 99 (60-115) mg/dL Lactic Acid 2.4 H* (0.5-2.0) mmol/L Lactic Acid F/U @ 2Hr (0.5-2.0) mmol/L Calcium 9.8 (8.4-10.2) mg/dL Magnesium 2.1 (1.6-2.6) mg/dL Total Bilirubin 0.9 (0.0-1.0) mg/dL Direct Bilirubin 0.4 (0.0-0.5) mg/dL AST 10 (5-37) U/L ALT 14 (0-40) U/L Alkaline Phosphatase 50 (39-117) U/L Total Creatine Kinase 188 H (38-174) U/L Troponin I High Sens 14.0 (<3.5-35.0) ng/L B-Natriuretic Peptide 26 (<100) pg/mL Total Protein 7.9 (6.5-8.0) g/dL Albumin 4.4 (3.5-5.0) g/dL Lipase 104 H (8-78) U/L Procalcitonin 0.13 ng/mL Urine Color Yellow Urine Appearance Cloudy Urine pH 5.0 (5.0-9.0) Ur Specific [place] 1.015 (1.005-1.025) Urine Protein 30 (1+) H (Neg-Trace) mg/dL Urine Glucose (UA) Negative (Negative) mg/dL Urine Ketones Trace (Negative) mg/dL Urine Blood Small (1+) H (Negative) Urine Nitrite Negative (Negative) Ur Leukocyte Esterase Trace H (Negative) Urine RBC 3-5 H (0-2) /HPF Urine WBC 0-5 (0-5) /HPF Ur Squamous Epith Cells 0-2 (0-2) /HPF Urine Bacteria None Seen (None Seen) Hyaline Casts 6-10 (0-2) /LPF COVID-19 (RAJNI) Negative (Negative) COVID-19 Clin Com See Note 08/17/23 Range/Units 14:21 WBC (4.8-10.8) X10*3/uL RBC (4.60-5.80) X10*6/uL Hgb (14.0-18.0) g/dl Hct (42.0-52.0) % MCV (80.0-98.0) fL MCH (27.0-33.0) pg MCHC (31.0-36.0) g/dl RDW (11.0-16.0) % Plt Count (160-400) X10*3/uL MPV (9.4-12.4) fL Immature Gran % (Auto) (0.0-0.4) % Neut % (Auto) (45-73) % Lymph % (Auto) (20-40) % [place] % (Auto) (2-11) % Eos % (Auto) (0-4) % Baso % (Auto) (0-2) % Lymph # (Auto) (1.2-4.9) X10*3/uL [place] # (Auto) (0.1-1.2) X10*3/uL Eos # (Auto) (0.0-0.4) X10*3/uL Baso # (Auto) (0.0-0.2) X10*3/uL Abs Immat Gran (auto) (0.00-0.03) X10*3/uL Absolute Neuts (auto) (2.0-8.3) x10*3/uL Absolute Nucleated RBC (0.0-0.012) X10*3/uL Nucleated RBC % (auto) (0.0-0.2) /100WBC PT (11.1-13.3) SEC INR (0.9-1.1) D-Dimer High Sensitivty NG/ML Sodium (135-145) mmol/L Potassium (3.3-5.1) mmol/L Chloride (96-108) mmol/L Carbon Dioxide (22-29) mmol/L Anion Gap (12-20) BUN (9-16) mg/dL Creatinine (0.5-1.4) mg/dL Estim Creat Clear Calc Estimated GFR Random Glucose (60-115) mg/dL Lactic Acid (0.5-2.0) mmol/L Lactic Acid F/U @ 2Hr 1.1 (0.5-2.0) mmol/L Calcium (8.4-10.2) mg/dL Magnesium (1.6-2.6) mg/dL Total Bilirubin (0.0-1.0) mg/dL Direct Bilirubin (0.0-0.5) mg/dL AST (5-37) U/L ALT (0-40) U/L Alkaline Phosphatase (39-117) U/L Total Creatine Kinase (38-174) U/L Troponin I High Sens (<3.5-35.0) ng/L B-Natriuretic Peptide (<100) pg/mL Total Protein (6.5-8.0) g/dL Albumin (3.5-5.0) g/dL Lipase (8-78) U/L Procalcitonin ng/mL Urine Color Urine Appearance Urine pH (5.0-9.0) Ur Specific [place] (1.005-1.025) Urine Protein (Neg-Trace) mg/dL Urine Glucose (UA) (Negative) mg/dL Urine Ketones (Negative) mg/dL Urine Blood (Negative) Urine Nitrite (Negative) Ur Leukocyte Esterase (Negative) Urine RBC (0-2) /HPF Urine WBC (0-5) /HPF Ur Squamous Epith Cells (0-2) /HPF Urine Bacteria (None Seen) Hyaline Casts (0-2) /LPF COVID-19 (RAJNI) (Negative) COVID-19 Clin Com Independent Interpretation I performed an independent interpretation of an: EKG, Plain X-Ray and CT Scan (no obstructing stones) Interpretation: Rate: 87 Rhythm: aflutter [place]: left Normal QRS complex. ST T wave : normal no ALIX qTC: normal prior studies: no acute ischemia The study has been interpreted contemporaneously by me. . Radiology Impression Discussion of test interpretation with radiology: I have reviewed the radiologist's reading. Independent Historian Clinical information obtained from an independent historian. History obtained from or confirmed by: Spouse External Record Review External record reviewed: Inpatient record Critical Care Time Critical Care Time Critical Care Time: Yes Total Critical Care Time: 60 Attestation: IVF 3L, consults, admission, review of labs, treatment of low BP I attest to this time spent taking care of the patient Discharge Plan Discharge Clinical Impression: Weakness, Acidosis, lactic Acute renal failure Qualifiers: Acute renal failure type: unspecified Qualified Code(s): N17.9 - Acute kidney failure, unspecified Back pain Qualifiers: Back pain location: thoracic back pain Chronicity: acute Back pain laterality: bilateral Qualified Code(s): M54.6 - Pain in thoracic spine Patient Disposition: Admitted As Inpatient
[2023-08-17 11:17] LABS: MANUAL DIFF FLAG NO
[2023-08-17 11:19] LABS: Basophils Percent Auto 0.3 % (0-2); Eosinophils Absolute Auto 0.1 X10*3/uL (0.0-0.4); Eosinophils Percent Auto 0.8 % (0-4); Hematocrit 37.6 % (42.0-52.0); Hemoglobin 12.9 g/dl (14.0-18.0); Imm Gran Abs Auto 0.07 X10*3/uL (0.00-0.03); Imm Gran Pct Auto 0.8 % (0.0-0.4); Lymphocytes Absolute Auto 1.5 X10*3/uL (1.2-4.9); Lymphocytes Percent Auto 17.8 % (20-40); Mean Corpuscular HGB Conc 34.3 g/dl (31.0-36.0); Mean Corpuscular Hemoglobin 32.8 pg (27.0-33.0); Mean Corpuscular Volume 95.7 fL (80.0-98.0); Mean Platelet Volume 9.9 fL (9.4-12.4); Monocytes Absolute Auto 0.8 X10*3/uL (0.1-1.2); Monocytes Percent Auto 9.3 % (2-11); Neutrophils Absolute Auto 6.1 x10*3/uL (2.0-8.3); Platelet Count 187 X10*3/uL (160-400); Red Blood Count 3.93 X10*6/uL (4.60-5.80); Red Cell Distribution Width 12.8 % (11.0-16.0); White Blood Count 8.6 X10*3/uL (4.8-10.8)
[2023-08-17 11:26] LABS: INTERNATIONAL NORM RATIO 0.9 (0.9-1.1)
[2023-08-17 11:28] LABS: D Dimer High Sensitivity 277 NG/ML
[2023-08-17 11:40] LABS: B Type Natriuretic Peptide 26 pg/mL (<100)
[2023-08-17 11:43] LABS: Lactic Acid 2.4 mmol/L (0.5-2.0)
[2023-08-17] MEDS: cefTRIAXone sodium 1 GM in 0.9 % Sodium Chloride 50 ML IV (11:43)
[2023-08-17 11:49] LABS: Alanine Aminotransferase 14 U/L (0-40); Albumin Level 4.4 g/dL (3.5-5.0); Alkaline Phosphatase 50 U/L (39-117); Anion Gap 23 (12-20); Aspartate Amino Transferase 10 U/L (5-37); Bilirubin Direct 0.4 mg/dL (0.0-0.5); Bilirubin Total 0.9 mg/dL (0.0-1.0); Blood Urea Nitrogen 98 mg/dL (9-16); Calcium 9.8 mg/dL (8.4-10.2); Carbon Dioxide 15 mmol/L (22-29); Chloride 97 mmol/L (96-108); Creatinine Clr Calc Pharmacy 8.7; Estimated Glomerular Filt Rate 5; Glucose Random 99 mg/dL (60-115); Lipase 104 U/L (8-78); Magnesium 2.1 mg/dL (1.6-2.6); Potassium 5.2 mmol/L (3.3-5.1); Sodium 130 mmol/L (135-145); Total Protein 7.9 g/dL (6.5-8.0)
[2023-08-17 11:55] LABS: Procalcitonin 0.13 ng/mL
[2023-08-17 12:00] LABS: COVID-19 Test Negative (Negative); IDNOW Serial# 08D9AD1C
[2023-08-17] MEDS: Lidocaine HCl 2 % Urojet 10 ML JEL.PF.APP TOPICAL (12:51)
[2023-08-17 13:09] LABS: Appearance Urine Cloudy; Color Urine Yellow; Glucose Urine UA Negative (Negative); Leukocyte Esterase Urine Trace (Negative); Nitrite Urine Negative (Negative); Specific Gravity - Urine 1.015 (1.005-1.025); UMIC TRIGGER UACC YES; Urine Blood Small (1+) (Negative); Urine Ketones Trace mg/dL (Negative); Urine Protein 30 (1+) mg/dL (Neg-Trace)
[2023-08-17 13:17] LABS: Reflex Lactate? Lactic Acid Added
[2023-08-17 13:29] LABS: Bacteria Urine None Seen (None Seen); Squamous Epithelial Cell Urine 0-2 /HPF (0-2); WBC Urine 0-5 /HPF (0-5)
[2023-08-17 14:41] LABS: ~Lactic Acid-LAB USE ONLY 1.1 mmol/L (0.5-2.0)
[2023-08-17] MEDS: oxyCODONE HCl Immed Release 5 MG TABLET PO (15:12)
--- NOTE | 2023-08-17 15:16 | PC.NURSE ---
pt a&ox4, hypotensive, tachycardic, other vss, tremulous, pt reports decreased PO intake, a few days, pain behind R shoulder radiating to mid back. daily ETOH 3+ drink/day. 20G IV placed LAC, NS running per order. 16F helton place w urojet lidocaine, pt tolerated well. 250ml urine output after helton placement. pt medicated per NOV.
[2023-08-17] MEDS: 0.9 % Sodium Chloride 1,000 ML 100 ML IVCONT (15:52)
--- NOTE | 2023-08-17 16:09 | PM.IMHP ---
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 Patient also reports falling yesterday while in the kitchen. Was standing in front of the sink when he felt dizzy and lightheaded fell back into the refrigerator. Denies any trauma, injury, head strike. Patient states he has had a reduced appetite the past 5 days, however has been drinking normally. Denies any diarrhea or vomiting. No fever, chills, abdominal pain. However, patient does point out that the output in his ileostomy has changed in the past 6 months. Patient has had his ileostomy since 1970. Says that used to take 1.5 hours after eating before he would have any output in his ostomy bag, but before the past few months he reports he has liquidy output in his ostomy bag 5-10 minutes after eating. Reports more frequent emptying his ostomy depending on how much he eats. Patient states he has had no difficulties going to the bathroom and reports still urinating normally with a [id number]-yellow-colored output. Also notes back pain for the past couple of weeks that starts just below his shoulders to his lower back. Denies any trauma to the area. Patient denies starting any new medications recently, the reports he stopped taking lisinopril a few months ago. No chest pain/pressure, palpitations. Denies shortness of breath. In the ED pt was afebrile but tachycardic to 108, and initially hypotensive as low as 77/35. Labs were significant for H&H of 12.9/37.6, sodium 130, potassium 5.2, carbon dioxide 15, BUN 98, creatinine 9.73, lactic acid 2.4 with repeat 1.1, UA negative for UTI. CXR showed apparent stable chronic volume loss right hemo thorax with elevation of right hemo diaphragm. CT?abdomen and pelvis found no acute abnormalities, but did show nonobstructive bilateral renal calculi, hepatic steatosis, cholelithiasis with no evidence of acute cholecystitis, prostatomegaly and chronic compression deformities of T10 and T12. EKG demonstrated atrial variable AV nonspecific ST abnormality. Pt was treated with IVF, ceftriaxone, lidocaine, and oxycodone. Pt will be admitted to the hospital for treatment and further evaluation of acute renal failure. <MIGUEL ÁNGEL Ramirez - Last Filed: 08/17/23 18:42> Review of Systems Review of Systems: Lightheadedness, dizziness Generalized weakness Anorexia Back pain Increased ostomy output Denies chest pain/pressure, palpitations No shortness of breath <MIGUEL ÁNGEL Ramirez - Last Filed: 08/17/23 18:42> [facility] Medical History: Medical History Lymphangitis Edema of lower extremity Parastomal hernia Obesity (BMI 30-39.9) Dyspnea on exertion Nocturnal hypoxemia Restrictive lung disease Essential hypertension Atrial arrhythmia Hemophilia Loja cyst Renal stones History of cataract BPH (benign prostatic hyperplasia) Gout Crohn's disease Peripheral vascular disease Thrombocytopenia History of hepatitis C Cholelithiasis Osteopenia <MIGUEL ÁNGEL Ramirez - Last Filed: 08/17/23 18:42> Family History: Family History Father Prostate cancer Mother Diabetes Maternal Grandfather Factor VIII deficiency hemophilia <MIGUEL ÁNGEL Ramirez - Last Filed: 08/17/23 18:42> Surgical History: Surgical History Status post ablation of incompetent vein using laser (01/13/23) H/O tooth extraction History of appendectomy History of urethral stent History of cataract surgery H/O wrist surgery <MIGUEL ÁNGEL Ramirez - Last Filed: 08/17/23 18:42> Social History: Social History Household Members: Spouse Household Members Other:: 1 Housing: House Are you a primary respiratory care assistant to a significant other at home: No Do you presently have visiting nurse or other home services: No Alcohol intake: current Alcohol intake frequency: 3 or more drinks per day Alcohol type: beer Patient Tobacco Use Status: Never used Tobacco Smoked in Last 30 Days: No e-Cigarette/Vaping Use: Never Used Second Hand Smoke Exposure: No Use of substances other than those prescribed or required for medical reasons: No Currently Displaying Signs/Symptoms of Drug Intoxication Withdrawal: No Any prior treatment program specific to substance use: No Have you been hit, kicked, punched, or otherwise hurt by someone within the past year? If so, by whom?: No Do you feel safe in your current relationship?: No Is there a partner from a previous relationship who is making you feel unsafe now?: No Are you made to feel afraid or neglected: No Advance Directives: No Advance Directives Information Provided: Yes Do you have thoughts of harming others: None Do you have a plan to hurt others: No Plan Recently lost weight without trying: No How much weight loss: Not applicable Eating poorly because of decreased appetite: No Nutrition screen score: 0 Nutrition Risks: No Nutritional Risk Poor oral hygiene: No service: No Current occupational status: retired Cognitive needs: No Hearing needs: No Vision needs: Yes <MIGUEL ÁNGEL Ramirez - Last Filed: 08/17/23 18:42> Meds Allergies/Adverse reactions: Allergies Allergy/AdvReac Type Severity Reaction Status Date / Time No Known Allergies Allergy Verified 06/22/23 13:07 <MIGUEL ÁNGEL Ramirez - Last Filed: 08/17/23 18:42> Active Medications: Current Medications Sodium Chloride (Ns) 1,000 mls @ 100 mls/hr IVCONT .Q10H FRACISCO Last Admin: 08/17/23 15:52 Dose: 100 mls/hr <MIGUEL ÁNGEL Ramirez - Last Filed: 08/17/23 18:42> Home medications: Home Medications Medication Instructions Recorded Confirmed Last Taken Type calcium carbonate 600 mg-vitamin 1 tab PO DAILY 08/03/20 08/17/23 08/17/23 History D3 5 mcg (200 unit) tablet (Calcium 600 + D(3)) cyanocobalamin (vitamin B-12) 250 250 mcg PO DAILY 08/03/20 08/17/23 08/17/23 History mcg lozenges nystatin 100,000 unit/gram topical 1 appl topical DAILY PRN Skin 08/04/22 08/17/23 Unknown History powder Irritation <MIGUEL ÁNGEL Ramirez - Last Filed: 08/17/23 18:42> Physical Exam Vital Signs and Narrative: Vital Signs: Last Vital Signs Temp 97.5 F 08/17/23 10:49 Pulse 108 H 08/17/23 15:12 Resp 20 08/17/23 15:12 BP 127/64 08/17/23 15:12 Pulse Ox 100 08/17/23 15:12 O2 Del Method Room Air 08/17/23 15:12 BMI result Body Mass Index 30.3 <MIGUEL ÁNGEL Ramirez - Last Filed: 08/17/23 18:42> Constitutional: Alert, in no acute distress. Mental Status: Oriented to person, place and time. Eyes: Pupils are equal, round, and reactive to light. Ear, Nose, and Throat: Oropharynx clear, mucous membranes moist. Ears and nose without deformities. Trachea midline. Respiratory: Clear to auscultation bilaterally. No wheezing, rales, or rhonchi. Cardiovascular: Irregularly irregular rhythm. No murmurs, rubs, or gallops. Gastrointestinal: Abdomen soft, non-tender, non-distended. Normal bowel sounds. Ostomy in place with liquid output. : Huertas in place Neurologic: Cranial nerves II-XII are grossly intact bilaterally. No focal neurological deficits. Moves all extremities spontaneously. Skin: Warm, dry. Musculoskeletal: No cyanosis or clubbing. Extremities: No edema. Psychiatric: Normal mood and affect. <MIGUEL ÁNGEL Ramirez - Last Filed: 08/17/23 18:42> Results Labs CBC and Chem 7: 08/18/23 05:58 08/18/23 05:58 <MIGUEL ÁNGEL Ramirez - Last Filed: 08/17/23 18:42> Labs: Laboratory Results - last 24 hr 08/17/23 08/17/23 08/17/23 11:08 11:25 12:53 MCV 95.7 MCH 32.8 MCHC 34.3 RDW 12.8 Plt Count 187 MPV 9.9 Immature Gran % (Auto) 0.8 H Neut % (Auto) 71.0 Lymph % (Auto) 17.8 L [place] % (Auto) 9.3 Eos % (Auto) 0.8 Baso % (Auto) 0.3 Lymph # (Auto) 1.5 [place] # (Auto) 0.8 Eos # (Auto) 0.1 Baso # (Auto) 0.0 Abs Immat Gran (auto) 0.07 H Absolute Neuts (auto) 6.1 Absolute Nucleated RBC 0.000 Nucleated RBC % (auto) 0.0 PT 11.0 L INR 0.9 D-Dimer High Sensitivty 277 Anion Gap 23 H Estim Creat Clear Calc 8.7 Estimated GFR 5 Random Glucose 99 Lactic Acid 2.4 H* Lactic Acid F/U @ 2Hr Calcium 9.8 Magnesium 2.1 Total Bilirubin 0.9 Direct Bilirubin 0.4 AST 10 ALT 14 Alkaline Phosphatase 50 Total Creatine Kinase 188 H B-Natriuretic Peptide 26 Total Protein 7.9 Albumin 4.4 Lipase 104 H Procalcitonin 0.13 Urine Color Yellow Urine Appearance Cloudy Urine pH 5.0 Ur Specific [place] 1.015 Urine Protein 30 (1+) H Urine Glucose (UA) Negative Urine Ketones Trace Urine Blood Small (1+) H Urine Nitrite Negative Ur Leukocyte Esterase Trace H Urine RBC 3-5 H Urine WBC 0-5 Ur Squamous Epith Cells 0-2 Urine Bacteria None Seen Hyaline Casts 6-10 COVID-19 ([facility]) Negative COVID-19 Clin Com See Note 08/17/23 14:21 MCV MCH MCHC RDW Plt Count MPV Immature Gran % (Auto) Neut % (Auto) Lymph % (Auto) [place] % (Auto) Eos % (Auto) Baso % (Auto) Lymph # (Auto) [place] # (Auto) Eos # (Auto) Baso # (Auto) Abs Immat Gran (auto) Absolute Neuts (auto) Absolute Nucleated RBC Nucleated RBC % (auto) PT INR D-Dimer High Sensitivty Anion Gap Estim Creat Clear Calc Estimated GFR Random Glucose Lactic Acid Lactic Acid F/U @ 2Hr 1.1 Calcium Magnesium Total Bilirubin Direct Bilirubin AST ALT Alkaline Phosphatase Total Creatine Kinase B-Natriuretic Peptide Total Protein Albumin Lipase Procalcitonin Urine Color Urine Appearance Urine pH Ur Specific [place] Urine Protein Urine Glucose (UA) Urine Ketones Urine Blood Urine Nitrite Ur Leukocyte Esterase Urine RBC Urine WBC Ur Squamous Epith Cells Urine Bacteria Hyaline Casts COVID-19 ([facility]) COVID-19 Clin Com <MIGUEL ÁNGEL Ramirez - Last Filed: 08/17/23 18:42> Imaging Radiologist's Impressions: Impressions Chest X-Ray 08/17/23 11:30 IMPRESSION: Apparent stable chronic changes noted. Recommend follow-up PA lateral, preferably nonrotated. Abdomen/Pelvis CT 08/17/23 12:38 IMPRESSION: 1. Nonobstructive bilateral renal calculi. 2. Hepatic steatosis. 3. Cholelithiasis but no evidence of acute cholecystitis. 4. Status post colectomy with a right lower quadrant ileostomy and large parastomal hernia containing omental fat and nonobstructed loops of small bowel, not significantly changed compared to 09/25/2019. 5. Prostatomegaly. 6. Chronic compression deformities at T10 and T12, unchanged compared to 09/25/2019. <MIGUEL ÁNGEL Ramirez - Last Filed: 08/17/23 18:42> Assessment and Plan (1) Acidosis, lactic: Status: Acute <MIGUEL ÁNGEL Ramirez - Last Filed: 08/17/23 18:42> (2) Acute renal failure: Qualifiers: Acute renal failure type: unspecified Qualified Code(s): N17.9 - Acute kidney failure, unspecified <MIGUEL ÁNGEL Ramirez - Last Filed: 08/17/23 18:42> Status: Acute <MIGUEL ÁNGEL Ramirez - Last Filed: 08/17/23 18:42> (3) Hypotension: Status: Acute <MIGUEL ÁNGEL Ramirez - Last Filed: 08/17/23 18:42> Pt is a 73-year-old male with a PMH significant for?PVD, hx of SVT, hemophilia A, restrictive lung disease, BPH, atrial ectopy, and 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 Pt will be admitted to the hospital for treatment and further evaluation of acute renal failure. Acute renal failure Creatinine 9.73, up from 0.97 on 03/07/2023 Likely secondary to dehydration from increased output from ileostomy, ?parastomal hernia Patient with ileostomy since 1970, says output has suddenly increased the past few months, lately has been emptying ostomy 5-10 minute after eating when it used to take 1-2 hours Patient reports has been drinking normally, denies vomiting Patient received 4 L IVF in ED Will place on maintenance fluids Will check C diff, GI panel General surgery consult Nephrology consult Follow BMP Hypotension Patient with lightheadedness, dizziness, BP 77/35 at time of presentation Likely secondary to dehydration from high output ileostomy Patient received IVF in ED with improvement to BP of 125/[address] mainenance fluids Monitor BP Lactic acidosis, resolved Lactic acid 2.4 time of presentation with follow-up WNL at 1.1 after fluids Likely secondary to dehydration, not sepsis No clear sign of active infection: Patient afebrile, no leukocytosis, UA negative for UTI Hypotension and tachycardia secondary to dehydration, not sepsis Atrial flutter EKG shows atrial flutter, likely new onset Patient with significant history of atrial ectopy, followed by Dr. Dueñas Patient asymptomatic Consider Cardiology consult Monitor on telemetry Back pain Unclear etiology: CT showing chronic compression deformities at T10 and T12, unchanged compared with CT of 09/25/2019 Analgesics for pain management HLD Will hold statin for now Full Code Attending:?Dr. Hirsch DVT Prophylaxis: Heparin Pt will require a hospitalization of at least two nights for treatment of?acute renal failure with IVF, close monitoring, and specialist consultation. 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 Pt will be admitted to the hospital for treatment and further evaluation of acute renal failure. Acute renal failure Creatinine 9.73, up from 0.97 on 03/07/2023 Likely secondary to dehydration from increased output from ileostomy, ?parastomal hernia Patient with ileostomy since 1970, says output has suddenly increased the past few months, lately has been emptying ostomy 5-10 minute after eating when it used to take 1-2 hours Patient reports has been drinking normally, denies vomiting Patient received 4 L IVF in ED Will place on maintenance fluids Will check C diff, GI panel General surgery consult Nephrology consult Follow BMP Hypotension Patient with lightheadedness, dizziness, BP 77/35 at time of presentation Likely secondary to dehydration from high output ileostomy Patient received IVF in ED with improvement to BP of 125/[address] mainenance fluids Monitor BP Lactic acidosis, resolved Lactic acid 2.4 time of presentation with follow-up WNL at 1.1 after fluids Likely secondary to dehydration, not sepsis No clear sign of active infection: Patient afebrile, no leukocytosis, UA negative for UTI Hypotension and tachycardia secondary to dehydration, not sepsis Atrial flutter EKG shows atrial flutter, likely new onset Patient with significant history of atrial ectopy, followed by Dr. Dueñas Patient asymptomatic Consider Cardiology consult Monitor on telemetry Back pain Unclear etiology: CT showing chronic compression deformities at T10 and T12, unchanged compared with CT of 09/25/2019 Analgesics for pain management HLD Will hold statin for now Full Code Attending:?Dr. Hirsch DVT Prophylaxis: Heparin Pt will require a hospitalization of at least two nights for treatment of?acute renal failure with IVF, close monitoring, and specialist consultation. Addendum to history and physical by the advanced practice provider, MIGUEL ÁNGEL Cox I interviewed and examined the patient. I discussed their presentation and management with the THA. I reviewed the history and physical and agree with the documentation, with the following additions and corrections: 73yo M with hx SVT/atrial ectopy, hemophilia A, ileostomy due to Crohn's disease, HTN presenting with lightheadedness, dizziness, malaise x 1 week increased ileostomy liquid output x 6 mo [ileostomy since 1970] found to be hypotensive though fluid-responsive + severe LACY plan admit to tele, give isotonic bicarbonate, consult Nephrology also has new-onset AF, though rate controlled on Topolol; will get TTE + consult Cardiology consult Surg re ileostomy issues <Bette Hirsch MD - Last Filed: 08/18/23 11:05> Quality Stroke Does the patient have a stroke diagnosis?: No <MIGUEL ÁNGEL Ramirez - Last Filed: 08/17/23 18:42> VTE Prior VTE?: No <MIGUEL ÁNGEL Ramirez - Last Filed: 08/17/23 18:42> VTE Risk Level:: Medical - moderate - high <MIGUEL ÁNGEL Ramirez - Last Filed: 08/17/23 18:42> VTE Device Contraindication: Treatment Not Indicated <MIGUEL ÁNGEL Ramirez - Last Filed: 08/17/23 18:42> VTE Drug Contraindication: N/A - Med Ordered <MIGUEL ÁNGEL Ramirez - Last Filed: 08/17/23 18:42>
--- NOTE | 2023-08-17 16:21 | PHA.MEDREC ---
Pharmacy Consult ? Medication Reconciliation Pharmacy has completed the medication reconciliation. Patient had list of medications. Report still on metoprolol even though last filled in March for 90 days and then reported lisinopril was stopped by his provide. Sara Larsen, LamarD
--- NOTE | 2023-08-17 16:34 | PM.CNNEP ---
History of Present Illness Reason for Consult Consult date: 08/18/23 Reason for consult: LACY Chief Complaint Chief complaint: Acute Renal Failure History of Present Illness Narrative: 73-year-old male with a?PVD, hx of SVT, hemophilia A, restrictive lung disease, BPH, atrial ectopy, and ileostomy in the setting of Crohn's who presents to the ED for evaluation lightheadedness, dizziness, and generalized weakness x1 week. Patient also reports falling yesterday while in the kitchen. Was standing in front of the sink when he felt dizzy and lightheaded fell back into the refrigerator. Denies any trauma, injury, head strike. Patient states he has had a reduced appetite the past 5 days, however has been drinking normally. Denies any diarrhea or vomiting. No fever, chills, abdominal pain. However, patient does point out that the output in his ileostomy has changed in the past 6 months. Patient has had his ileostomy since 1970. Says that used to take 1.5 hours after eating before he would have any output in his ostomy bag, but before the past few months he reports he has liquidy output in his ostomy bag 5-10 minutes after eating. Reports more frequent emptying his ostomy depending on how much he eats. H/o several non obstructing renal stones. CT showed no obstruction today Baseline creatinine hasbeen less than 1.0 On admission, creatinine was > 9 mg/dL and hence this consultation PMFSH Past Medical History Medical History Lymphangitis Edema of lower extremity Parastomal hernia Obesity (BMI 30-39.9) Dyspnea on exertion Nocturnal hypoxemia Restrictive lung disease Essential hypertension Atrial arrhythmia Hemophilia Loja cyst Renal stones History of cataract BPH (benign prostatic hyperplasia) Gout Crohn's disease Peripheral vascular disease Thrombocytopenia History of hepatitis C Cholelithiasis Osteopenia Family History Family History Father Prostate cancer Mother Diabetes Maternal Grandfather Factor VIII deficiency hemophilia Surgical History Surgical History Status post ablation of incompetent vein using laser (01/13/23) H/O tooth extraction History of appendectomy History of urethral stent History of cataract surgery H/O wrist surgery Social History Social History Household Members: Spouse Household Members Other:: 1 Housing: House Are you a primary care management coordinator to a significant other at home: No Do you presently have visiting nurse or other home services: No Alcohol intake: current Alcohol intake frequency: 3 or more drinks per day Alcohol type: beer Patient Tobacco Use Status: Never used Tobacco Smoked in Last 30 Days: No e-Cigarette/Vaping Use: Never Used Second Hand Smoke Exposure: No Use of substances other than those prescribed or required for medical reasons: No Currently Displaying Signs/Symptoms of Drug Intoxication Withdrawal: No Any prior treatment program specific to substance use: No Have you been hit, kicked, punched, or otherwise hurt by someone within the past year? If so, by whom?: No Do you feel safe in your current relationship?: No Is there a partner from a previous relationship who is making you feel unsafe now?: No Are you made to feel afraid or neglected: No Advance Directives: No Advance Directives Information Provided: Yes Do you have thoughts of harming others: None Do you have a plan to hurt others: No Plan Recently lost weight without trying: No How much weight loss: Not applicable Eating poorly because of decreased appetite: No Nutrition screen score: 0 Nutrition Risks: No Nutritional Risk Poor oral hygiene: No service: No Current occupational status: retired Cognitive needs: No Hearing needs: No Vision needs: Yes Meds Allergies Allergy/AdvReac Type Severity Reaction Status Date / Time No Known Allergies Allergy Verified 06/22/23 13:07 Active Medications: Current Medications Sodium Chloride (Ns) 1,000 mls @ 100 mls/hr IVCONT .Q10H FRACISCO Last Admin: 08/17/23 15:52 Dose: 100 mls/hr Home Medications Medication Instructions Recorded Confirmed Last Taken Type calcium carbonate 600 mg-vitamin 1 tab PO DAILY 08/03/20 08/17/23 08/17/23 History D3 5 mcg (200 unit) tablet (Calcium 600 + D(3)) cyanocobalamin (vitamin B-12) 250 250 mcg PO DAILY 08/03/20 08/17/23 08/17/23 History mcg lozenges nystatin 100,000 unit/gram topical 1 appl topical DAILY PRN Skin 08/04/22 08/17/23 Unknown History powder Irritation Physical Exam Vital Signs: Last Vital Signs Temp 97.5 F 08/17/23 10:49 Pulse 108 H 08/17/23 15:12 Resp 20 08/17/23 15:12 BP 127/64 08/17/23 15:12 Pulse Ox 100 08/17/23 15:12 O2 Del Method Room Air 08/17/23 15:12 BMI result Body Mass Index 30.3 Const General: ill appearing Nutritional Appearance: well nourished Orientation/consciousness: patient oriented x3 HEENT Head: No normal to inspection Mouth: moist mucous membranes Neck Neck: Yes supple and Yes no JVD Resp Auscultation: clear to auscultation bilaterally, no rales and rub present Cardio Jugular venous distension: no JVD Palpation: no palpable S3 and no palpable S4 Heart sounds: no rubs GI Inspection: Yes other (Ileostomy in place) Palpation (GI): Soft to palpation and nontender Percussion: No Fluid wave present Auscultation: normal bowel sounds General: Yes no CVA tenderness Back/Spine/Pelvis Back: no CVA tenderness Skin General skin exam: no rashes or lesions noted Neuro General: patient oriented x3 Extrem General: Yes no pedal edema and No clubbing Results Lab Results 08/18/23 05:58 08/18/23 05:58 Lab results: Chemistry 08/17/23 11:08 Sodium 130 L Potassium 5.2 H D Carbon Dioxide 15 L BUN 98 H Creatinine 9.73 H* Calcium 9.8 Hematology 08/17/23 11:08 WBC 8.6 Hgb 12.9 L Plt Count 187 Urinalysis 08/17/23 12:53 Urine Color Yellow Urine Appearance Cloudy Urine pH 5.0 Ur Specific [place] 1.015 Urine Protein 30 (1+) H Urine Glucose (UA) Negative Urine Ketones Trace Urine Blood Small (1+) H Urine Nitrite Negative Ur Leukocyte Esterase Trace H Urine RBC 3-5 H Urine WBC 0-5 Ur Squamous Epith Cells 0-2 Hyaline Casts 6-10 Abdomen/Pelvis CT 08/17/23 12:38 IMPRESSION: 1. Nonobstructive bilateral renal calculi. 2. Hepatic steatosis. 3. Cholelithiasis but no evidence of acute cholecystitis. 4. Status post colectomy with a right lower quadrant ileostomy and large parastomal hernia containing omental fat and nonobstructed loops of small bowel, not significantly changed compared to 09/25/2019. 5. Prostatomegaly. 6. Chronic compression deformities at T10 and T12, unchanged compared to 09/25/2019. Assessment and Plan (1) Acute renal failure: Qualifiers: Acute renal failure type: unspecified Qualified Code(s): N17.9 - Acute kidney failure, unspecified Status: Acute (2) Bilateral kidney stones: Status: Acute (3) Hyponatremia: Status: Acute (4) Hyperkalemia: Status: Acute (5) Metabolic acidosis: Status: Acute Plan 73 yr old man with crohn's and s/o ileostomy with non obstructing renal stones with severe LACY along with hyponatremia and hyperkalemia/Acidosis LACY most likely due to hypo perfusion from dehydration No evidence of obstruction Need to r/o AGN/Ain - although seems less likely at this point based on urinary findings and clinical picture Hyponatremia due to decreased free water clearance/Hypovolemic hyponatremia Hyperkalemia - due to using ACEi and Potassium citrate in a setting of LACY Lactic acidosis Recommendations: Check urine for Sodium, creatinine, .protein Hold Lisinopril IV Hydration with isotonic fluids. Can switch to D5 Half NS with 2 amp NaHCO3 at 100 cc/hr to correct both hypoantremia and acidosis Repeat BMP and follow closely Continue to avoid nephrotoxins and hypotension Watch urine output closely No indication for dialysis today Further work up based on above baseline investigations and clinical course. Shall follow closely Thank you Procedures Date of Service Date of Service: 08/18/23
[2023-08-17] MEDS: Heparin Sodium,Porcine 5,000 UNIT/ML VIAL 5000 UNIT SUBCUT (19:17)
--- NOTE | 2023-08-17 19:18 | PC.NURSE ---
CIWA 9, provider notified.
[2023-08-17 19:27] LABS: Sodium Urine Random < 20.0 mmol/L; Total Protein Urine Random 35 mg/dL (<12)
[2023-08-17] MEDS: Acetaminophen 325 MG TABLET 650 MG PO (19:29)
[2023-08-17 20:02] LABS: CDiff Gene PCR NEGATIVE (Negative)
[2023-08-17 21:13] LABS: Anion Gap 18 (12-20); Blood Urea Nitrogen 85 mg/dL (9-16); Calcium 8.4 mg/dL (8.4-10.2); Carbon Dioxide 13 mmol/L (22-29); Chloride 107 mmol/L (96-108); Creatinine Clr Calc Pharmacy 12.1; Estimated Glomerular Filt Rate 8; Glucose Random 103 mg/dL (60-115); Potassium 4.6 mmol/L (3.3-5.1); Sodium 133 mmol/L (135-145)
--- NOTE | 2023-08-17 21:16 | PC.NURSE ---
reached out to Dr. Hirsch as bp 86/52. also ?continue with phenobarb?
--- NOTE | 2023-08-17 22:52 | PC.NURSE ---
pt resting comfortably. pt reports back pain, Tylenol given, pt requesting oxycodone at this time. MD tijerina
[2023-08-17] MEDS: Albumin Human 25 % 100 ML IV (23:10)
[2023-08-18] VITALS (8 sets, daily range): BP systolic 90–120; BP diastolic 42–70; PULSE 77–96; RESP 18–22; TEMP 36–37.1; O2SAT 95–98; BMI 31.8
--- NOTE | 2023-08-18 00:14 | PC.NURSE ---
LATE ENTRY. PHENOBARB NOT GIVEN D/T LOW BP PER MD GABRIEL. PT SCORING 1 ON CIWA SCALE. AWARE. HOLDING PHENBARB AT THIS TIME
[2023-08-18] MEDS: Albumin Human 25 % 100 ML IV (00:21)
--- NOTE | 2023-08-18 01:02 | PC.NURSE ---
report given to RN, will have pt transported upstairs
[2023-08-18] MEDS: 0.9 % Sodium Chloride Flush 3 ML SYRINGE IVFLUSH ×2 (01:58→21:00)
[2023-08-18] MEDS: Acetaminophen 325 MG TABLET 650 MG PO ×3 (02:40→21:03)
--- NOTE | 2023-08-18 05:38 | HO.SKINPHOTO ---
Location: Category: Stage: Length: Width: Depth: cm Location: Category: Stage: Length: Width: Depth: cm Location: Category: Stage: Length: Width: Depth: cm Location: Category: Stage: Length: Width: Depth: cm Location: Category: Stage: Length: Width: Depth: cm Location: Category: Stage: Length: Width: Depth: cm
[2023-08-18 06:50] LABS: Hematocrit 31.1 % (42.0-52.0); Hemoglobin 10.9 g/dl (14.0-18.0); Mean Corpuscular Hemoglobin 33.7 pg (27.0-33.0); Mean Corpuscular Volume 96.3 fL (80.0-98.0); Mean Platelet Volume 10.1 fL (9.4-12.4); Platelet Count 132 X10*3/uL (160-400); Red Blood Count 3.23 X10*6/uL (4.60-5.80); Red Cell Distribution Width 12.9 % (11.0-16.0); White Blood Count 4.1 X10*3/uL (4.8-10.8)
--- NOTE | 2023-08-18 07:00 | CA_ITS ---
Transthoracic Echocardiogram Patient (Last, First, Middle): Dirk Rosado J Gender: Male Date of : 1950 Age: 73 Procedure Date: 08/18/2023 Procedure Type: Transthoracic Echocardiogram Location: [facility] [place] Height: 185.42 cm Weight: 108.86 kg BSA: 2.33 m2 Heart Rate: bpm BP: 103 / 66 mmHg Project Architect: Referring MD: Bette Hirsch MD Symptoms: atrial flutter Study Quality: Technically Difficult ECG Rhythm: Atrial Fibrillation Conclusions: - The left ventricular systolic function is normal. The visually estimated ejection fraction is between 65-70%. - No obvious valvular pathology seen on this study. Findings Left Ventricle Normal left ventricular cavity size. There is normal left ventricular wall thickness. The left ventricular systolic function is normal. The visually estimated ejection fraction is between 65-70%. There is no evidence of regional wall motion abnormalities. Diastolic function is normal for age. Right Ventricle Normal right ventricular cavity size and systolic function. Atria Both atria are normal in size. Aortic Valve The aortic valve was not well visualized. There is no aortic valve stenosis. There is trace (trivial) aortic valve regurgitation. Mitral Valve The mitral valve appears normal. There is no mitral valve regurgitation. There is no mitral valve stenosis. Pulmonic Valve The pulmonic valve is likely normal. Tricuspid Valve There is trace tricuspid valve regurgitation. There is no evidence of pulmonary hypertension. Great Vessels The aorta was not well visualized. Venous The inferior vena cava was not well visualized. The inferior vena cava is normal in size. Pericardium/Pleural There is no evidence of pericardial effusion. Prior Study Comparison No significant change compared to prior study dated: 08/21/2020. Recommendations, Care & Conclusions No obvious valvular pathology seen on this study. Measurements 2D Linear Measurements IVSd: 1.00 0.6-0.9/0.6-1.0 cm LVIDd: 4.97 3.9-5.3/4.2-5.9 cm LVIDd Index: 2.13 2.4-3.2/2.2-3.1 cm/m2 LVIDs: 3.04 2.0-3.6 cm LVPWd: 0.98 0.7-1.1 cm Ao Root: 3.00 2.1-3.5 cm LA Diam: 4.30 2.7-3.8/3.0-4.0 cm LAIDs Index: 1.85 1.5-2.3 cm/m2 LV Mass: 220.25 67-162/88-224 g LV Mass Index: 94.53 43-95/49-115 g/m2 LVOT Diam: 2.10 3.0+(-)1.3 cm Mitral Valve MV Pk E: 1.17 MV Decel Time: 168.00 E'Lateral: 20.50 E'Medial: 10.10 E/E' Med: 11.60 E/E' Lat: 5.70 PHT: 49.00 MVA PHT: 4.49 Decel Vance: 6.95 Aortic Valve AoV Pk Enrique: 1.54 AoV Mn Enrique: 1.05 AoV VTI: 0.30 AoV Pk Grad: 9.00 Aov Mn Grad: 5.00 NEDRA Cont.VTI: 2.57 LVOT LVOT Pk Enrique: 1.02 LVOT Mn Enrique: 0.73 LVOT VTI: 0.22 LVOT Pk Grad: 4.00 LVOT Mn Grad: 2.00 LVOT Diam: 2.10 LVOT Area: 3.46 Diastolic Function MV Pk E: 1.17 E'Medial: 10.10 E/E' Med: 11.60 E' Laterial: 20.50 E/E' Lat: 5.70 Right Ventricle TAPSE (mm): 35.00 TVS' Enrique: 11.00 Tricuspid Valve TR Pk Enrique: 2.32 TR Pk Grad: 22.00 RA Press: 3.00 RVSP: 25.00 Great Vessels Aorta Ao Root-2D: 3.00 2.0-3.7 cm Pulmonary Valve PV Pk Enrique: 1.07 Peak PV Grad: 5.00 Updated in Other Vendor System with Status of Final Alex Dueñas MD electronically signed on 08/18/2023 1:00:45 PM with status of Final
[2023-08-18 07:26] LABS: Anion Gap 15 (12-20); Blood Urea Nitrogen 81 mg/dL (9-16); Calcium 8.5 mg/dL (8.4-10.2); Carbon Dioxide 17 mmol/L (22-29); Chloride 109 mmol/L (96-108); Creatinine Clr Calc Pharmacy 18.4; Estimated Glomerular Filt Rate 12; Glucose Random 88 mg/dL (60-115); Sodium 137 mmol/L (135-145)
[2023-08-18] MEDS: Thiamine HCL 100 MG TABLET PO (09:23)
[2023-08-18] MEDS: Pyridoxine HCl (Vitamin B6) 50 MG TABLET 100 MG PO (09:23)
[2023-08-18] MEDS: PHENobarbitaL 30 MG TABLET 60 MG PO ×2 (09:23→21:00)
[2023-08-18] MEDS: Metoprolol Succinate ER 25 MG TAB.ER.24H PO (09:23)
[2023-08-18] MEDS: Cyanocobalamin (Vitamin B-12) 500 MCG TABLET 250 MCG PO (09:23)
--- NOTE | 2023-08-18 09:29 | P.PNNP_ITS ---
Subjective Subjective Date of Service: 08/18/23 Principal diagnosis: LACY Interval history: Doing better UO increased Cr trending down c/o Back pain - from neck down to lower back Physical Exam 2 Vital Signs: Vital Signs: Last Vital Signs Temp 96.9 F 08/18/23 07:39 Pulse 77 08/18/23 07:39 Resp 20 08/18/23 07:39 BP 103/66 08/18/23 07:39 Pulse Ox 98 08/18/23 07:39 O2 Del Method Room Air 08/18/23 07:39 BMI result Body Mass Index 31.8 Const: Nutritional Appearance: well nourished Orientation/consciousness: p atient oriented x3 HEENT: Head: No normal to inspection Mouth: moist mucous membranes Neck: Neck: Yes supple and Yes no JVD Resp: Auscultation: clear to auscultation bilaterally, no rales and rub present Cardio: Jugular venous distension: no JVD Palpation: no palpable S3 and no palpable S4 Heart sounds: no rubs GI: Inspection: Yes other (Ileostomy in place) Palpation (GI): Soft to palpation and nontender Percussion: No Fluid wave present Auscultation: n ormal bowel sounds : General: Yes no CVA tenderness Back/Spine/Pelvis: Back: no CVA tenderness Skin: General skin exam: no rashes or lesions noted Neuro: General: patient oriented x3 Extrem: General: Yes no pedal edema and No clubbing Objective Data Labs 08/18/23 05:58 08/18/23 05:58 Labs: Laboratory Results - last 24 hr 08/17/23 08/17/23 08/17/23 11:08 11:25 12:53 WBC 8.6 RBC 3.93 L Hgb 12.9 L Hct 37.6 L MCV 95.7 MCH 32.8 MCHC 34.3 RDW 12.8 Plt Count 187 MPV 9.9 Immature Gran % (Auto) 0.8 H Neut % (Auto) 71.0 Lymph % (Auto) 17.8 L [place] % (Auto) 9.3 Eos % (Auto) 0.8 Baso % (Auto) 0.3 Lymph # (Auto) 1.5 [place] # (Auto) 0.8 Eos # (Auto) 0.1 Baso # (Auto) 0.0 Abs Immat Gran (auto) 0.07 H Absolute Neuts (auto) 6.1 Absolute Nucleated RBC 0.000 Nucleated RBC % (auto) 0.0 PT 11.0 L INR 0.9 D-Dimer High Sensitivty 277 Sodium 130 L Potassium 5.2 H D Chloride 97 Carbon Dioxide 15 L Anion Gap 23 H BUN 98 H Creatinine 9.73 H* Estim Creat Clear Calc 8.7 Estimated GFR 5 Random Glucose 99 Lactic Acid 2.4 H* Lactic Acid F/U @ 2Hr Calcium 9.8 Magnesium 2.1 Total Bilirubin 0.9 Direct Bilirubin 0.4 AST 10 ALT 14 Alkaline Phosphatase 50 Total Creatine Kinase 188 H Troponin I High Sens 14.0 B-Natriuretic Peptide 26 Total Protein 7.9 Albumin 4.4 Lipase 104 H Procalcitonin 0.13 Urine Color Yellow Urine Appearance Cloudy Urine pH 5.0 Ur Specific [place] 1.015 Urine Protein 30 (1+) H Urine Glucose (UA) Negative Urine Ketones Trace Urine Blood Small (1+) H Urine Nitrite Negative Ur Leukocyte Esterase Trace H Urine RBC 3-5 H Urine WBC 0-5 Ur Squamous Epith Cells 0-2 Urine Bacteria None Seen Hyaline Casts 6-10 U Random Total Protein Ur Random Sodium Urine Creatinine C. difficile Tox B Gene COVID-19 (RAJNI) Negative COVID-19 Clin Com See Note 08/17/23 08/17/23 08/17/23 14:21 18:56 20:39 WBC RBC Hgb Hct MCV MCH MCHC RDW Plt Count MPV Immature Gran % (Auto) Neut % (Auto) Lymph % (Auto) [place] % (Auto) Eos % (Auto) Baso % (Auto) Lymph # (Auto) [place] # (Auto) Eos # (Auto) Baso # (Auto) Abs Immat Gran (auto) Absolute Neuts (auto) Absolute Nucleated RBC Nucleated RBC % (auto) PT INR D-Dimer High Sensitivty Sodium 133 L Potassium 4.6 Chloride 107 Carbon Dioxide 13 L Anion Gap 18 BUN 85 H Creatinine 6.97 H* Estim Creat Clear Calc 12.1 Estimated GFR 8 Random Glucose 103 Lactic Acid Lactic Acid F/U @ 2Hr 1.1 Calcium 8.4 D Magnesium Total Bilirubin Direct Bilirubin AST ALT Alkaline Phosphatase Total Creatine Kinase Troponin I High Sens B-Natriuretic Peptide Total Protein Albumin Lipase Procalcitonin Urine Color Urine Appearance Urine pH Ur Specific [place] Urine Protein Urine Glucose (UA) Urine Ketones Urine Blood Urine Nitrite Ur Leukocyte Esterase Urine RBC Urine WBC Ur Squamous Epith Cells Urine Bacteria Hyaline Casts U Random Total Protein 35 H Ur Random Sodium < 20.0 Urine Creatinine 368.24 C. difficile Tox B Gene NEGATIVE COVID-19 (RAJNI) COVID-19 hereO Com 08/18/23 05:58 WBC 4.1 L RBC 3.23 L Hgb 10.9 L Hct 31.1 L MCV 96.3 MCH 33.7 H MCHC 35.0 RDW 12.9 Plt Count 132 L D MPV 10.1 Immature Gran % (Auto) Neut % (Auto) Lymph % (Auto) [place] % (Auto) Eos % (Auto) Baso % (Auto) Lymph # (Auto) [place] # (Auto) Eos # (Auto) Baso # (Auto) Abs Immat Gran (auto) Absolute Neuts (auto) Absolute Nucleated RBC 0.000 Nucleated RBC % (auto) 0.0 PT INR D-Dimer High Sensitivty Sodium 137 Potassium 4.0 Chloride 109 H Carbon Dioxide 17 L Anion Gap 15 BUN 81 H Creatinine 4.68 H* Estim Creat Clear Calc 18.4 Estimated GFR 12 Random Glucose 88 Lactic Acid Lactic Acid F/U @ 2Hr Calcium 8.5 Magnesium Total Bilirubin Direct Bilirubin AST ALT Alkaline Phosphatase Total Creatine Kinase Troponin I High Sens B-Natriuretic Peptide Total Protein Albumin Lipase Procalcitonin Urine Color Urine Appearance Urine pH Ur Specific [place] Urine Protein Urine Glucose (UA) Urine Ketones Urine Blood Urine Nitrite Ur Leukocyte Esterase Urine RBC Urine WBC Ur Squamous Epith Cells Urine Bacteria Hyaline Casts U Random Total Protein Ur Random Sodium Urine Creatinine C. difficile Tox B Gene COVID-19 (RAJNI) COVID-19 hereO Com Procedures Date of Service Date of Service: 08/18/23 Assessment & Plan Assessment and plan (1) Acute renal failure: Status: Acute (2) Bilateral kidney stones: Status: Acute (3) Hyponatremia: Status: Acute (4) Hyperkalemia: Status: Acute (5) Metabolic acidosis: Status: Acute Plan 73 yr old man with crohn's and s/o ileostomy with non obstructing renal stones with severe LACY along with hyponatremia and hyperkalemia/Acidosis LACY most likely due to hypo perfusion from dehydration No evidence of obstruction Need to r/o AGN/Ain - although seems less likely at this point based on urinary findings and clinical picture Hyponatremia due to decreased free water clearance/Hypovolemic hyponatremia Hyperkalemia - due to using ACEi and Potassium citrate in a setting of LACY Lactic acidosis Creatinine is trending down, Acidosis is improving, Sodium is better and rate of correction is acceptable. K is normal today Recommendations: Hold Lisinopril IV Hydration with isotonic fluids. Keep D5 Half NS with 2 amp NaHCO3 at 100 cc/hr for 1 more day; Once Bicarb is > 20, can DC bicarb and start NS at 80 cc/hr Repeat BMP tomorrow Continue to avoid nephrotoxins and hypotension Watch urine output closely No indication for dialysis Needs analgesics- Avoid NSAIDS. Can try Tramadol PRN Shall follow along with the team Thank you Time Spent With Patient Time: Total time managing care of this patient today ____ minutes. Progress Note: Quality Stroke Does the patient have a stroke diagnosis?: No
--- NOTE | 2023-08-18 10:39 | HO.PM.IMPN ---
Subjective Subjective Date of Service: 08/18/23 Interval History: feels better, appetite improved, no dizziness/lightheadedness SCr coming down in persistent atrial flutter Review of Systems Review of Systems: Yes all other systems are reviewed and are negative Physical Exam Vital Signs: Vital Signs: Last Vital Signs Temp 96.9 F 08/18/23 07:39 Pulse 77 08/18/23 07:39 Resp 20 08/18/23 07:39 BP 103/66 08/18/23 07:39 Pulse Ox 98 08/18/23 07:39 O2 Del Method Room Air 08/18/23 07:39 BMI result Body Mass Index 31.8 Gen: in no acute distress HEENT: sclera anicteric, moist mucus membranes Neck: supple Lungs: clear to auscultation bilaterally Heart: irreulgar, no murmurs Abd: soft, non-tender, non-distended, ileostomy with liquid output Ext: no edema Skin: warm/well-perfused Neuro: alert and oriented x3, no focal findings Psych: appropriate affect Objective Data Active Medications Acetaminophen (Acetaminophen 325 Mg Tablet) 650 mg PO Q6H PRN PRN Reason: Pain, Mild (Pain Scale 1-3) Last Admin: 08/18/23 09:57 Dose: 650 mg Documented By: NATHAN Cyanocobalamin (Cyanocobalamin (Vitamin B-12) 500 Mcg Tablet) 250 mcg PO DAILY [facility] Last Admin: 08/18/23 09:23 Dose: 250 mcg Documented By: NATHAN Heparin Sodium (Porcine) (Heparin Sodium,Porcine 5,000 Unit/Ml Vial) 5,000 unit SUBCUT Q8H [facility] Last Admin: 08/18/23 09:23 Dose: Not Given Documented By: NATHAN Non-Admin Reason: Patient Refused Sodium Bicarbonate 100 meq/ (Dextrose/Sodium Chloride) 1,000 mls @ 100 mls/hr IV .Q10H [facility] Last Infusion: 08/18/23 01:57 Dose: 100 mls/hr Documented By: JOY Melatonin (Melatonin 3 Mg Tablet) 6 mg PO BEDTIME PRN PRN Reason: Insomnia Metoprolol Succinate (Metoprolol Succinate Er 25 Mg Tab.Er.24h) 25 mg PO DAILY [facility]; Protocol Last Admin: 08/18/23 09:23 Dose: 25 mg Documented By: HO.LESSARL Ondansetron HCl (Ondansetron Hcl 4 Mg/2 Ml Vial) 4 mg IVPUSH Q8H PRN PRN Reason: Nausea and Vomiting Pharmacy Consult (Consult Rx Etoh Phenob Im/Po) 1 each MISCELLANE ONCE PRN; Protocol PRN Reason: Consult order Phenobarbital (Phenobarbital 30 Mg Tablet) 60 mg PO BID [facility]; Protocol Stop: 08/19/23 21:01 Last Admin: 08/18/23 09:23 Dose: 60 mg Documented By: NATHAN Phenobarbital (Phenobarbital 30 Mg Tablet) 30 mg PO BID [facility]; Protocol Stop: 08/21/23 21:01 Phenobarbital (Phenobarbital 30 Mg Tablet) 30 mg PO DAILY [facility]; Protocol Stop: 08/23/23 09:01 Pyridoxine HCl (Pyridoxine Hcl (Vitamin B6) 50 Mg Tablet) 100 mg PO DAILY [facility] Last Admin: 08/18/23 09:23 Dose: 100 mg Documented By: NATHAN Sodium Chloride (0.9 % Sodium Chloride Flush 3 Ml Syringe) 3 ml IVFLUSH QSHIFT [facility] Last Admin: 08/18/23 07:24 Dose: Not Given Documented By: NATHAN Non-Admin Reason: IV Running Thiamine HCl (Thiamine Hcl 100 Mg Tablet) 100 mg PO DAILY [facility] Last Admin: 08/18/23 09:23 Dose: 100 mg Documented By: NATHAN Labs 08/18/23 05:58 08/18/23 05:58 Labs: Laboratory Results - last 24 hr 08/17/23 08/17/23 08/17/23 11:08 11:25 12:53 MCV 95.7 MCH 32.8 MCHC 34.3 RDW 12.8 Plt Count 187 MPV 9.9 Immature Gran % (Auto) 0.8 H Neut % (Auto) 71.0 Lymph % (Auto) 17.8 L [place] % (Auto) 9.3 Eos % (Auto) 0.8 Baso % (Auto) 0.3 Lymph # (Auto) 1.5 [place] # (Auto) 0.8 Eos # (Auto) 0.1 Baso # (Auto) 0.0 Abs Immat Gran (auto) 0.07 H Absolute Neuts (auto) 6.1 Absolute Nucleated RBC 0.000 Nucleated RBC % (auto) 0.0 PT 11.0 L INR 0.9 D-Dimer High Sensitivty 277 Anion Gap 23 H Estim Creat Clear Calc 8.7 Estimated GFR 5 Random Glucose 99 Lactic Acid 2.4 H* Lactic Acid F/U @ 2Hr Calcium 9.8 Magnesium 2.1 Total Bilirubin 0.9 Direct Bilirubin 0.4 AST 10 ALT 14 Alkaline Phosphatase 50 Total Creatine Kinase 188 H B-Natriuretic Peptide 26 Total Protein 7.9 Albumin 4.4 Lipase 104 H Procalcitonin 0.13 Urine Color Yellow Urine Appearance Cloudy Urine pH 5.0 Ur Specific [place] 1.015 Urine Protein 30 (1+) H Urine Glucose (UA) Negative Urine Ketones Trace Urine Blood Small (1+) H Urine Nitrite Negative Ur Leukocyte Esterase Trace H Urine RBC 3-5 H Urine WBC 0-5 Ur Squamous Epith Cells 0-2 Urine Bacteria None Seen Hyaline Casts 6-10 U Random Total Protein Ur Random Sodium Urine Creatinine C. difficile Tox B Gene COVID-19 (RAJNI) Negative COVID-19 [employer] [facility] See Note 08/17/23 08/17/23 08/17/23 14:21 18:56 20:39 MCV MCH MCHC RDW Plt Count MPV Immature Gran % (Auto) Neut % (Auto) Lymph % (Auto) [place] % (Auto) Eos % (Auto) Baso % (Auto) Lymph # (Auto) [place] # (Auto) Eos # (Auto) Baso # (Auto) Abs Immat Gran (auto) Absolute Neuts (auto) Absolute Nucleated RBC Nucleated RBC % (auto) PT INR D-Dimer High Sensitivty Anion Gap 18 Estim Creat Clear Calc 12.1 Estimated GFR 8 Random Glucose 103 Lactic Acid Lactic Acid F/U @ 2Hr 1.1 Calcium 8.4 D Magnesium Total Bilirubin Direct Bilirubin AST ALT Alkaline Phosphatase Total Creatine Kinase B-Natriuretic Peptide Total Protein Albumin Lipase Procalcitonin Urine Color Urine Appearance Urine pH Ur Specific [place] Urine Protein Urine Glucose (UA) Urine Ketones Urine Blood Urine Nitrite Ur Leukocyte Esterase Urine RBC Urine WBC Ur Squamous Epith Cells Urine Bacteria Hyaline Casts U Random Total Protein 35 H Ur Random Sodium < 20.0 Urine Creatinine 368.24 C. difficile Tox B Gene NEGATIVE COVID-19 (RAJNI) COVID-19 [employer] Com 08/18/23 05:58 MCV 96.3 MCH 33.7 H MCHC 35.0 RDW 12.9 Plt Count 132 L D MPV 10.1 Immature Gran % (Auto) Neut % (Auto) Lymph % (Auto) [place] % (Auto) Eos % (Auto) Baso % (Auto) Lymph # (Auto) [place] # (Auto) Eos # (Auto) Baso # (Auto) Abs Immat Gran (auto) Absolute Neuts (auto) Absolute Nucleated RBC 0.000 Nucleated RBC % (auto) 0.0 PT INR D-Dimer High Sensitivty Anion Gap 15 Estim Creat Clear Calc 18.4 Estimated GFR 12 Random Glucose 88 Lactic Acid Lactic Acid F/U @ 2Hr Calcium 8.5 Magnesium Total Bilirubin Direct Bilirubin AST ALT Alkaline Phosphatase Total Creatine Kinase B-Natriuretic Peptide Total Protein Albumin Lipase Procalcitonin Urine Color Urine Appearance Urine pH Ur Specific [place] Urine Protein Urine Glucose (UA) Urine Ketones Urine Blood Urine Nitrite Ur Leukocyte Esterase Urine RBC Urine WBC Ur Squamous Epith Cells Urine Bacteria Hyaline Casts U Random Total Protein Ur Random Sodium Urine Creatinine C. difficile Tox B Gene COVID-19 (RAJNI) COVID-19 Clin Com Assessment and Plan (1) Acute renal failure: Status: Acute Assessment and Plan: d2 73yo M with hx SVT/atrial ectopy, hemophilia A, ileostomy due to Crohn's disease, HTN presenting with lightheadedness, dizziness, malaise x 1 week admitted for LACY, hypotension hypotension LACY, prerenal metabolic acidosis lactic acidosis - improving with bicarbonate IV; continue until bicarb >20 then change to NS; Nephrology following new-onset atrial flutter - TTE, Cardiology consulted - continue metoprolol succinate; rate-controlled - to decide on anticoagulation ileostomy - question of excess output and parastomal hernia; consult surgery; GI panel pending back pain - prn APAP EtOH withdrawal - phenobarbital taper, Addiction Medicine consultation hemophilia A, mild - managed by Dr Ramos at [facility] Hematology vit B12 deficiency - continue replacement VTE ppx - UFH dispo - TBD In my clinical judgment, the patient requires continued inpatient hospitalization for the following reasons: LACY Total time managing care of this patient today: 45 minutes. Quality Stroke Does the patient have a stroke diagnosis?: No VTE Prior VTE?: No VTE Risk Level:: Medical - moderate - high VTE Device Contraindication: Treatment Not Indicated VTE Drug Contraindication: N/A - Med Ordered
--- NOTE | 2023-08-18 11:08 | PM.EVENT ---
Event Note Date of Service: 08/18/23 Event Note: Notified by nursing staff at 19:15 the patient's CIWA scale was 9, patient admits to drinking 3+ beers daily. Have started him on phenobarb protocol. Time Spent With Patient Time: Total time managing care of this patient today ____ minutes.
--- NOTE | 2023-08-18 11:27 | HO.WOUND ---
Wound Consult: Initial 73yr old male admitted to [facility] on?08/17/23 17:06 - See progress notes and H&P for detailed history. Wound care consult placed for Assessment and evulation of sacral area bruise vs DTI. Of note pt reports falling at home prior to admission and strikeing his lower back sacral area against his fridge. Sacrum Etiology: Bruise Wound Bed: dark nonblanchable purple tissue with yellow halo pigmentation consistent with bruising - tissue remains intact Drainage / Odor: None Edges: Attached well defined 4 distinct areas consistent with trauma not prolonged pressure ? Estelita wound: ? Intact No Induration, No Fluctuance, No Erythema, No Warmth Pain: pt reports mild back pain secondary to fall - team and providers aware Recommendations: No topical interventions needed at this time. Pt has an ileostomy since roughly 1974 and was emptied for 100cc of liquid brown with flecks of material. Pouch intact no leaking noted - pt reports he is independent with his pouch changes and emptying. He reports he normally wears Convatec and gets approximately a weeks wear time. One coloplast pouch provided at the bedside for use inpt should he need it - he reports he may consider his bringing in his Convatec pre-cut pouch to use - either option is acceptable. Re-consult wound care Nurse for wound deterioration or wound changes.
[2023-08-18 11:41] LABS: Adenovirus F 40/41 Not Detected (Not Detect.); Astrovirus Not Detected (Not Detect.); Campylobacter Not Detected (Not Detect.); Cryptosporidium Not Detected (Not Detect.); Cyclospora cayetanensis Not Detected (Not Detect.); E. coli EAEC Not Detected (Not Detect.); E. coli EPEC Not Detected (Not Detect.); E. coli ETEC Not Detected (Not Detect.); E. coli STEC Not Detected (Not Detect.); Entamoeba histolytica Not Detected (Not Detect.); Giardia lamblia Not Detected (Not Detect.); Norovirus GI/GII Not Detected (Not Detect.); Plesiomonas shigelloides Not Detected (Not Detect.); Rotavirus A Not Detected (Not Detect.); Salmonella Not Detected (Not Detect.); Sapovirus Not Detected (Not Detect.); Shigella sp./EIEC Not Detected (Not Detect.); Vibrio Not Detected (Not Detect.); Vibrio Cholerae Not Detected (Not Detect.); Yersinia enterocolitica Not Detected (Not Detect.)
--- NOTE | 2023-08-18 13:18 | MHC.CM.PN ---
Pt lives with , is independent, has no home health services, he has not used [facility] or been to [facility] in the past. to transport home, PCP: Jennifer Parikh, plan is home, self care. CM to follow and assist with DC plan.
--- NOTE | 2023-08-18 14:01 | PM.CNGS ---
History of Present Illness Consult details Consult date: 08/18/23 <Nikki Dove PA-C - Last Filed: 08/18/23 14:45> Reason for consult: other (parastomal hernia, ileostomy output) <Nikki Dove PA-C - Last Filed: 08/18/23 14:45> Requesting physician: Cielo Cox <ANA PAULA Matthew Last Filed: 08/18/23 14:45> Narrative: 73-year-old male with extensive PMH including hemophilia A, restrictive lung disease, BPH, atrial ectopy, and ileostomy in the setting of Crohns who presented to the ED for evaluation lightheadedness, dizziness, and generalized weakness for a week and had a fall the day before presentation. He endorses a reduced PO intake over the past week. He denies abdominal pain, fevers, chills, sick contacts, recent travel. In the ED he was tachycardia and hypotensive, hyponatremic and hyperkalemic with creatinine of 9.[address] lactic acid 2.4. CT abdomen and pelvis found no acute GI abnormalities. Pt was treated with IVF, ceftriaxone and was admitted to the hospitalist service for further treatment of the LACY. He had a colectomy, ileostomy in 1970 for Crohn's disease. He had multiple surgeries around that time. He reports needing to empty it soon after eating. He reports this is new within the last 6 months. Prior, he had to empty the ileostomy after about an hour-1.5h. He reports the output amount has been unchanged. <Nikki Dove PA-C Last Filed: 08/18/23 14:45> Review of Systems Constitutional: Constitutional: Denies chills and Denies fever(s) <ANA PAULA Matthew Last Filed: 08/18/23 14:45> ENT: Reports dizziness <ANA PAULA Matthew Last Filed: 08/18/23 14:45> Cardiovascular: Cardiovascular: Denies chest pain and Denies dyspnea <ANA PAULA Matthew Last Filed: 08/18/23 14:45> Respiratory: Respiratory: Denies dyspnea <ANA PAULA Matthew Last Filed: 08/18/23 14:45> Gastrointestinal: Gastrointestinal: Reports as per HPI, Denies abdominal pain, Reports change in bowel habits, Denies nausea and Denies vomiting <Nikki Dove PA-C - Last Filed: 08/18/23 14:45> Integumentary/Breasts: Skin/Breast: Denies rash <Nikki Dove PA-C - Last Filed: 08/18/23 14:45> Neurologic: Reports dizziness <Nikki Dove PA-C - Last Filed: 08/18/23 14:45> [facility] Past Medical History Medical History: Medical History (Updated 08/18/23 @ 14:40 by Nikki Dove PA-C) Lymphangitis Edema of lower extremity Parastomal hernia Obesity (BMI 30-39.9) Dyspnea on exertion Nocturnal hypoxemia Restrictive lung disease Essential hypertension Atrial arrhythmia Hemophilia Loja cyst Renal stones History of cataract BPH (benign prostatic hyperplasia) Gout Crohn's disease Peripheral vascular disease Thrombocytopenia History of hepatitis C Cholelithiasis Osteopenia <Nikki Dove PA-C - Last Filed: 08/18/23 14:45> Family History Family History: Family History Father Prostate cancer Mother Diabetes Maternal Grandfather Factor VIII deficiency hemophilia <Nikki Dove PA-C - Last Filed: 08/18/23 14:45> Surgical History Surgical History: Surgical History (Updated 08/18/23 @ 14:43 by Nikki Dove PA-C) S/P colectomy Status post ablation of incompetent vein using laser (01/13/23) H/O tooth extraction History of appendectomy History of urethral stent History of cataract surgery H/O wrist surgery <Nikki Dove PA-C - Last Filed: 08/18/23 14:45> Social History Social History: Social History Household Members: Spouse Household Members Other:: 1 Housing: House Are you a primary assistant child care teacher to a significant other at home: No Do you presently have visiting nurse or other home services: No Alcohol intake: current Alcohol intake frequency: 3 or more drinks per day Alcohol type: beer Patient Tobacco Use Status: Never used Tobacco Smoked in Last 30 Days: No e-Cigarette/Vaping Use: Never Used Second Hand Smoke Exposure: No Use of substances other than those prescribed or required for medical reasons: No Currently Displaying Signs/Symptoms of Drug Intoxication Withdrawal: No Any prior treatment program specific to substance use: No Have you been hit, kicked, punched, or otherwise hurt by someone within the past year? If so, by whom?: No Do you feel safe in your current relationship?: No Is there a partner from a previous relationship who is making you feel unsafe now?: No Are you made to feel afraid or neglected: No Advance Directives: No Advance Directives Information Provided: Yes Do you have thoughts of harming others: None Do you have a plan to hurt others: No Plan Recently lost weight without trying: No How much weight loss: Not applicable Eating poorly because of decreased appetite: No Nutrition screen score: 0 Nutrition Risks: No Nutritional Risk Poor oral hygiene: No service: No Current occupational status: retired Cognitive needs: No Hearing needs: No Vision needs: Yes <Nikki Dove PA-C - Last Filed: 08/18/23 14:45> Meds Allergies/Adverse reactions: Allergies Allergy/AdvReac Type Severity Reaction Status Date / Time No Known Allergies Allergy Verified 06/22/23 13:07 <Nikki Doev PA-C - Last Filed: 08/18/23 14:45> Active Medications: Current Medications Acetaminophen (Acetaminophen 325 Mg Tablet) 650 mg PO Q6H PRN PRN Reason: Pain, Mild (Pain Scale 1-3) Last Admin: 08/18/23 09:57 Dose: 650 mg Cyanocobalamin (Cyanocobalamin (Vitamin B-12) 500 Mcg Tablet) 250 mcg PO DAILY [facility] Last Admin: 08/18/23 09:23 Dose: 250 mcg Heparin Sodium (Porcine) (Heparin Sodium,Porcine 5,000 Unit/Ml Vial) 5,000 unit SUBCUT Q8H [facility] Last Admin: 08/18/23 09:23 Dose: Not Given Sodium Bicarbonate 100 meq/ (Dextrose/Sodium Chloride) 1,000 mls @ 100 mls/hr IV .Q10H [facility] Last Admin: 08/18/23 12:38 Dose: 100 mls/hr Melatonin (Melatonin 3 Mg Tablet) 6 mg PO BEDTIME PRN PRN Reason: Insomnia Metoprolol Succinate (Metoprolol Succinate Er 25 Mg Tab.Er.24h) 25 mg PO DAILY [facility]; Protocol Last Admin: 08/18/23 09:23 Dose: 25 mg Ondansetron HCl (Ondansetron Hcl 4 Mg/2 Ml Vial) 4 mg IVPUSH Q8H PRN PRN Reason: Nausea and Vomiting Pharmacy Consult (Consult Rx Etoh Phenob Im/Po) 1 each MISCELLANE ONCE PRN; Protocol PRN Reason: Consult order Phenobarbital (Phenobarbital 30 Mg Tablet) 60 mg PO BID [facility]; Protocol Stop: 08/19/23 21:01 Last Admin: 08/18/23 09:23 Dose: 60 mg Phenobarbital (Phenobarbital 30 Mg Tablet) 30 mg PO BID [facility]; Protocol Stop: 08/21/23 21:01 Phenobarbital (Phenobarbital 30 Mg Tablet) 30 mg PO DAILY [facility]; Protocol Stop: 08/23/23 09:01 Pyridoxine HCl (Pyridoxine Hcl (Vitamin B6) 50 Mg Tablet) 100 mg PO DAILY [facility] Last Admin: 08/18/23 09:23 Dose: 100 mg Sodium Chloride (0.9 % Sodium Chloride Flush 3 Ml Syringe) [facility] Last Admin: 08/18/23 07:24 Dose: Not Given Thiamine HCl (Thiamine Hcl 100 Mg Tablet) 100 mg PO DAILY [facility] Last Admin: 08/18/23 09:23 Dose: 100 mg <Nikki Dove PA-C - Last Filed: 08/18/23 14:45> Home medications: Home Medications Medication Instructions Recorded Confirmed Last Taken Type calcium carbonate 600 mg-vitamin 1 tab PO DAILY 08/03/20 08/17/23 08/17/23 History D3 5 mcg (200 unit) tablet (Calcium 600 + D(3)) cyanocobalamin (vitamin B-12) 250 250 mcg PO DAILY 08/03/20 08/17/23 08/17/23 History mcg lozenges nystatin 100,000 unit/gram topical 1 appl topical DAILY PRN Skin 08/04/22 08/17/23 Unknown History powder Irritation <Nikki Dove PA-C - Last Filed: 08/18/23 14:45> Physical Exam Vital Signs: Vital Signs: Last Vital Signs Temp 98.1 F 08/18/23 11:46 Pulse 87 08/18/23 11:46 Resp 18 08/18/23 11:46 BP 101/56 L 08/18/23 11:46 Pulse Ox 97 08/18/23 11:46 O2 Del Method Room Air 08/18/23 11:46 BMI result Body Mass Index 31.8 <NICOLETTE Matthew - Last Filed: 08/18/23 14:45> Const: General: comfortable, no acute distress and alert <NICOLETTE Matthew - Last Filed: 08/18/23 14:45> Orientation/consciousness: patient oriented x3 <MIGUEL ÁNGEL Matthew - Last Filed: 08/18/23 14:45> Resp: Effort & Inspection: normal respiratory effort <[facility] Last Filed: 08/18/23 14:45> GI: Other: large parastomal hernia reducible, nontender <MIGUEL ÁNGEL Matthew - Last Filed: 08/18/23 14:45> Inspection: No distended and Yes scar (multiple abdominal scars) <MIGUEL ÁNGEL Matthew Last Filed: 08/18/23 14:45> Palpation (GI): Soft to palpation, nontender, no guarding and not rigid <NICOLETTE Matthew Last Filed: 08/18/23 14:45> Percussion: Yes normal to percussion <MIGUEL ÁNGEL Matthew Last Filed: 08/18/23 14:45> Skin: General skin exam: no rashes or lesions noted <[facility] Last Filed: 08/18/23 14:45> Neuro: General: patient oriented x3 and moves all extremities <NICOLETTE Matthew - Last Filed: 08/18/23 14:45> Results Labs Result diagrams: 08/18/23 05:58 08/18/23 05:58 <[facility] Last Filed: 08/18/23 14:45> Labs: Abnormal lab results 08/17/23 08/17/23 08/18/23 Range/Units 18:56 20:39 05:58 WBC 4.1 L (4.8-10.8) X10*3/uL RBC 3.23 L (4.60-5.80) X10*6/uL Hgb 10.9 L (14.0-18.0) g/dl Hct 31.1 L (42.0-52.0) % MCH 33.7 H (27.0-33.0) pg Plt Count 132 L D (160-400) X10*3/uL Sodium 133 L (135-145) mmol/L Chloride 109 H (96-108) mmol/L Carbon Dioxide 13 L 17 L (22-29) mmol/L BUN 85 H 81 H (9-16) mg/dL Creatinine 6.97 H* 4.68 H* (0.5-1.4) mg/dL U Random Total Protein 35 H (<12) mg/dL Short CBC 08/18/23 Range/Units 05:58 WBC 4.1 L (4.8-10.8) X10*3/uL Hgb 10.9 L (14.0-18.0) g/dl Hct 31.1 L (42.0-52.0) % Plt Count 132 L D (160-400) X10*3/uL BMP 08/17/23 08/18/23 20:39 05:58 Sodium 133 L 137 Potassium 4.6 4.0 Chloride 107 109 H Carbon Dioxide 13 L 17 L BUN 85 H 81 H Creatinine 6.97 H* 4.68 H* Calcium 8.4 D 8.5 Urine 08/17/23 Range/Units 12:53 Urine Color Yellow Urine Appearance Cloudy Urine pH 5.0 (5.0-9.0) Ur Specific [place] 1.015 (1.005-1.025) Urine Protein 30 (1+) H (Neg-Trace) mg/dL Urine Glucose (UA) Negative (Negative) mg/dL All other labs normal. <Nikki Dove PA-C - Last Filed: 08/18/23 14:45> Imaging Abdomen CT scan report/results: report reviewed and image reviewed <Nikki Dove PA-C - Last Filed: 08/18/23 14:45> Assessment and Plan (1) Acute renal failure: Qualifiers: Acute renal failure type: unspecified Qualified Code(s): N17.9 - Acute kidney failure, unspecified <Nikki Dove PA-C - Last Filed: 08/18/23 14:45> Status: Acute <Nikki Dove PA-C - Last Filed: 08/18/23 14:45> (2) Acidosis, lactic: Status: Acute <Nikki Dove PA-C - Last Filed: 08/18/23 14:45> (3) Ileostomy in place: Status: Acute <Nikki Dove PA-C - Last Filed: 08/18/23 14:45> (4) Parastomal hernia: Qualifiers: Obstruction and gangrene presence: without obstruction or gangrene Qualified Code(s): K43.5 - Parastomal hernia without obstruction or gangrene <Nikki Dove PA-C - Last Filed: 08/18/23 14:45> Status: Acute <Nikki Dove PA-C - Last Filed: 08/18/23 14:45> 73 year old male with multiple medical comorbidities admitted for LACY, new onset a flutter. Patient has history of ileostomy s/p colectomy for Crohns disease and reports decreased PO intake over the past week. He reports ileostomy output has been unchanged but more rapid emptying and occurs 10-15 minutes after eating now for the past several months. CT abdomen/pelvis- no acute GI abnormalities. C diff negative, GI panel pending. If negative, can begin imodium, metamucil to slow output. May benefit from GI consult to evaluate for active Crohns disease. Parastomal is soft and reducible. Can continue to monitor. Would need referral to tertiary center for repair. <Nikki Dove PA-C - Last Filed: 08/18/23 14:45> 73 year old male with multiple medical comorbidities admitted for LACY, new onset a flutter. Patient has history of ileostomy s/p colectomy for Crohns disease and reports decreased PO intake over the past week. He reports ileostomy output has been unchanged but more rapid emptying and occurs 10-15 minutes after eating now for the past several months. CT abdomen/pelvis- no acute GI abnormalities. C diff negative, GI panel pending. If negative, can begin imodium, metamucil to slow output. May benefit from GI consult to evaluate for active Crohns disease. Parastomal is soft and reducible. Can continue to monitor. Would need referral to tertiary center for repair. Patient seen and examined. Agree with the above assessment and plan. The parastomal hernia is large but not obstructing. Agree with imodium and fiber therapy. <Jake Oro MD - Last Filed: 08/18/23 15:31> Procedures Date of Service Date of Service: 08/18/23 <Nikki Dove PA-C - Last Filed: 08/18/23 14:45> 08/18/23 <Jake Oro MD - Last Filed: 08/18/23 15:31>
[2023-08-18] MEDS: oxyCODONE HCl Immed Release 5 MG TABLET PO ×2 (15:17→23:55)
[2023-08-18] MEDS: Loperamide HCl 2 MG CAPSULE PO (15:18)
[2023-08-18] MEDS: Psyllium seed 3.7 GM PACKET PO (15:18)
--- NOTE | 2023-08-18 15:44 | MHC.RECOVRN ---
73 year old Yakut speaking male presented to [facility] [place] ED on 08/17/2023 due to SOB, bilateral shoulder pain, S/P fall and syncope.? Pt was admitted to [facility] for Acute Renal Insufficiency and Back Pain.? T/W and VARUN Rice went to meet with patient to assess need for and provide education re:? AUD resources.? was at the bedside and was answering most questions for the patient.? Pt. did, however, state I don't think I'm an alcoholic .? He did disclose drinking 4-12 oz. beers/day.? Unable to complete full assessment due to visitor.? Will attempt to return when visitors are not present.
--- NOTE | 2023-08-18 18:17 | P.CDIM_ITS ---
PROVIDER RESPONSE TEXT: To clarify, the appropriate diagnosis supported by the clinical indicators: Acute QUERY TEXT: PHYSICIAN'S DOCUMENTATION REQUEST Date of Query: 08/18/2023 12:16 PM EST Patient Name: Dirk Rosado Admit Date: 08/17/2023 Dear Bette Hirsch, A review of the medical record indicates additional documentation may be needed. Please review below and update the documentation accordingly. Clinical Indicators: PN: 08/18 - Assessment and plan - metabolic acidosis improving with bicarbonate IV, continue until bicarb > 20 then change to NS; Nephrology following Clarify which of the following accurately represents the acuity of the metabolic acidosis: Possible options might include: Acute Acute on chronic Compensated Other (explain) Clinically unable to determine (explain) Thank you, Nidia Veloz, CCS, CDIS Use of terms such as suspected, likely, concern for, or probable (associated with a specific diagnosi s that is being evaluated, monitored, or treated as if it exists) are acceptable and can be coded in the inpatient se tting, when documented at the time of discharge. Please use your independent medical judgment in providing your response. THIS QUERY IS PART OF THE PERMANENT MEDICAL RECORD
[2023-08-19] VITALS (7 sets, daily range): BP systolic 92–122; BP diastolic 50–60; PULSE 78–82; RESP 17–18; TEMP 36.2–37.1; O2SAT 96–97
[2023-08-19] MEDS: Heparin Sodium,Porcine 5,000 UNIT/ML VIAL 5000 UNIT SUBCUT (01:46)
[2023-08-19 07:13] LABS: Anion Gap 12 (12-20); Blood Urea Nitrogen 68 mg/dL (9-16); Calcium 8.3 mg/dL (8.4-10.2); Carbon Dioxide 24 mmol/L (22-29); Chloride 110 mmol/L (96-108); Creatinine Clr Calc Pharmacy 32.2; Estimated Glomerular Filt Rate 24; Glucose Random 95 mg/dL (60-115); Potassium 3.9 mmol/L (3.3-5.1); Sodium 142 mmol/L (135-145)
[2023-08-19 07:14] LABS: Hematocrit 30.7 % (42.0-52.0); Hemoglobin 10.5 g/dl (14.0-18.0); Mean Corpuscular HGB Conc 34.2 g/dl (31.0-36.0); Mean Corpuscular Hemoglobin 33.1 pg (27.0-33.0); Mean Corpuscular Volume 96.8 fL (80.0-98.0); Platelet Count 128 X10*3/uL (160-400); Red Blood Count 3.17 X10*6/uL (4.60-5.80); Red Cell Distribution Width 12.9 % (11.0-16.0); White Blood Count 4.2 X10*3/uL (4.8-10.8)
[2023-08-19] MEDS: Thiamine HCL 100 MG TABLET PO (09:26)
[2023-08-19] MEDS: Cyanocobalamin (Vitamin B-12) 500 MCG TABLET 250 MCG PO (09:26)
[2023-08-19] MEDS: oxyCODONE HCl Immed Release 5 MG TABLET PO ×3 (09:26→20:42)
[2023-08-19] MEDS: Pyridoxine HCl (Vitamin B6) 50 MG TABLET 100 MG PO (09:26)
[2023-08-19] MEDS: Metoprolol Succinate ER 25 MG TAB.ER.24H PO ×2 (09:27→20:42)
[2023-08-19] MEDS: PHENobarbitaL 30 MG TABLET 60 MG PO ×2 (09:27→20:43)
[2023-08-19] MEDS: Psyllium seed 3.7 GM PACKET PO (09:27)
[2023-08-19] MEDS: 0.9 % Sodium Chloride 1,000 ML 80 ML IVCONT ×2 (09:30→21:46)
--- NOTE | 2023-08-19 10:06 | PM.CNCAR ---
History of Present Illness History of Present Illness Date of Service: 08/19/23 Chief complaint: Acute Renal Failure Narrative: This is a cardiology consultation regarding atrial flutter. In the past, he has been seen in the clinic. He has a history of frequent supraventricular ectopy. Prior Holter had shown significant atrial ectopy at high burden of almost 41% and also some PAT. He was maintained on a small dose of beta-blockers. Current admissions mainly for renal failure. In that setting, he has been noticed to have atrial flutter on telemetry. Patient himself does not have any cardiac symptoms like angina or shortness of breath or in fact anything cardiac sounding. His creatinine was extremely high as much as 9.7 upon arrival but currently much improved to 2.6. Review of Systems Review of Systems: Yes all other systems are reviewed and are negative Constitutional: Constitutional: Reports as per HPI and Reports no additional constitutional complaints Eyes: Eyes: Reports as per HPI and Denies no additional eye complaints ENT: Denies system reviewed and no additional complaints, except as documented and Reports as per HPI Cardiovascular: Cardiovascular: Reports as per HPI, Reports no additional cardiovascular complaints, Denies acrocyanosis, Denies cool extremities, Denies chest pain, Denies leg edema, Denies lightheadedness, Denies palpitations and Denies dyspnea Respiratory: Respiratory: Reports as per HPI, Denies no additional respiratory complaints and Denies dyspnea Gastrointestinal: Gastrointestinal: Reports as per HPI and Denies no additional gastrointestinal complaints Genitourinary: Genitourinary: Reports no additional male genitourinary complaints and Reports as per HPI Musculoskeletal: Musculoskeletal: Reports no additional musculoskeletal complaints and Reports as per HPI Integumentary/Breasts: Skin/Breast: Reports system reviewed and no additional complaints, except as docu Neurologic: Reports system reviewed and no additional complaints, except as documented and Reports as per HPI Psychiatric: Psychiatric: Reports no additional psychiatric complaints and Reports as per HPI Endocrine: Endocrine: Reports no additional endocrine complaints, Reports as per HPI and Denies palpitations Hematologic/Lymphatic: Hematologic/Lymphatic: Reports no additional hematologic/lymphatic complaints and Reports as per HPI Allergic/Immunologic: Allergic/Immunologic: Reports no additional allergic/immunologic complaints and Reports as per HPI [facility] Past Medical History Medical History (Updated 08/19/23 @ 10:11 by Alex Dueñas MD) Lymphangitis Edema of lower extremity Parastomal hernia Obesity (BMI 30-39.9) Dyspnea on exertion Nocturnal hypoxemia Restrictive lung disease Essential hypertension Atrial arrhythmia Hemophilia Loja cyst Renal stones History of cataract BPH (benign prostatic hyperplasia) Gout Crohn's disease Peripheral vascular disease Thrombocytopenia History of hepatitis C Cholelithiasis Osteopenia Family History Family History Father Prostate cancer Mother Diabetes Maternal Grandfather Factor VIII deficiency hemophilia Surgical History Surgical History (Updated 08/18/23 @ 14:43 by Nikki Dove PA-C) S/P colectomy Status post ablation of incompetent vein using laser (01/13/23) H/O tooth extraction History of appendectomy History of urethral stent History of cataract surgery H/O wrist surgery Social History Social History Household Members: Spouse Household Members Other:: 1 Housing: House Are you a primary care transition coordinator to a significant other at home: No Do you presently have visiting nurse or other home services: No Alcohol intake: current Alcohol intake frequency: 3 or more drinks per day Alcohol type: beer Patient Tobacco Use Status: Never used Tobacco Smoked in Last 30 Days: No e-Cigarette/Vaping Use: Never Used Second Hand Smoke Exposure: No Use of substances other than those prescribed or required for medical reasons: No Currently Displaying Signs/Symptoms of Drug Intoxication Withdrawal: No Any prior treatment program specific to substance use: No Have you been hit, kicked, punched, or otherwise hurt by someone within the past year? If so, by whom?: No Do you feel safe in your current relationship?: No Is there a partner from a previous relationship who is making you feel unsafe now?: No Are you made to feel afraid or neglected: No Advance Directives: No Advance Directives Information Provided: Yes Do you have thoughts of harming others: None Do you have a plan to hurt others: No Plan Recently lost weight without trying: No How much weight loss: Not applicable Eating poorly because of decreased appetite: No Nutrition screen score: 0 Nutrition Risks: No Nutritional Risk Poor oral hygiene: No service: No Current occupational status: retired Cognitive needs: No Hearing needs: No Vision needs: Yes Meds Allergies Allergy/AdvReac Type Severity Reaction Status Date / Time No Known Allergies Allergy Verified 06/22/23 13:07 Active Medications: Current Medications Acetaminophen (Acetaminophen 325 Mg Tablet) 650 mg PO Q6H PRN PRN Reason: Pain, Mild (Pain Scale 1-3) Last Admin: 08/18/23 21:03 Dose: 650 mg Cyanocobalamin (Cyanocobalamin (Vitamin B-12) 500 Mcg Tablet) 250 mcg PO DAILY [facility] Last Admin: 08/19/23 09:26 Dose: 250 mcg Heparin Sodium (Porcine) (Heparin Sodium,Porcine 5,000 Unit/Ml Vial) 5,000 unit SUBCUT Q8H [facility] Last Admin: 08/19/23 01:46 Dose: 5,000 unit Sodium Chloride (Ns) 1,000 mls @ 80 mls/hr IVCONT .[id number] [facility] Loperamide HCl (Loperamide Hcl 2 Mg Capsule) 2 mg PO Q6H PRN PRN Reason: Diarrhea Last Admin: 08/18/23 15:18 Dose: 2 mg Melatonin (Melatonin 3 Mg Tablet) 6 mg PO BEDTIME PRN PRN Reason: Insomnia Metoprolol Succinate (Metoprolol Succinate Er 25 Mg Tab.Er.24h) 25 mg PO DAILY [facility]; Protocol Last Admin: 08/19/23 09:27 Dose: 25 mg Ondansetron HCl (Ondansetron Hcl 4 Mg/2 Ml Vial) 4 mg IVPUSH Q8H PRN PRN Reason: Nausea and Vomiting Oxycodone HCl (Oxycodone Hcl Immed Release 5 Mg Tablet) 5 mg PO Q4H PRN PRN Reason: mod-sev pain Last Admin: 08/19/23 09:26 Dose: 5 mg Pharmacy Consult (Consult Rx Etoh Phenob Im/Po) 1 each MISCELLANE ONCE PRN; Protocol PRN Reason: Consult order Phenobarbital (Phenobarbital 30 Mg Tablet) 60 mg PO BID [facility]; Protocol Stop: 08/19/23 21:01 Last Admin: 08/19/23 09:27 Dose: 60 mg Phenobarbital (Phenobarbital 30 Mg Tablet) 30 mg PO BID [facility]; Protocol Stop: 08/21/23 21:01 Phenobarbital (Phenobarbital 30 Mg Tablet) 30 mg PO DAILY [facility]; Protocol Stop: 08/23/23 09:01 Psyllium Hydrophilic Mucilloid (Psyllium Seed 3.7 Gm Packet) 3.7 gm PO DAILY [facility] Last Admin: 08/19/23 09:27 Dose: 3.7 gm Pyridoxine HCl (Pyridoxine Hcl (Vitamin B6) 50 Mg Tablet) 100 mg PO DAILY [facility] Last Admin: 08/19/23 09:26 Dose: 100 mg Sodium Chloride (0.9 % Sodium Chloride Flush 3 Ml Syringe) 3 ml IVFLUSH QSHIFT [facility] Last Admin: 08/18/23 21:00 Dose: 3 ml Thiamine HCl (Thiamine Hcl 100 Mg Tablet) 100 mg PO DAILY [facility] Last Admin: 08/19/23 09:26 Dose: 100 mg Home Medications Medication Instructions Recorded Confirmed Last Taken Type calcium carbonate 600 mg-vitamin 1 tab PO DAILY 08/03/20 08/17/23 08/17/23 History D3 5 mcg (200 unit) tablet (Calcium 600 + D(3)) cyanocobalamin (vitamin B-12) 250 250 mcg PO DAILY 08/03/20 08/17/23 08/17/23 History mcg lozenges nystatin 100,000 unit/gram topical 1 appl topical DAILY PRN Skin 08/04/22 08/17/23 Unknown History powder Irritation Physical Exam Vital Signs: Vital Signs: Last Vital Signs Temp 97.2 F 08/19/23 07:46 Pulse 78 08/19/23 07:46 Resp 18 08/19/23 07:46 BP 118/55 L 08/19/23 07:46 Pulse Ox 97 08/19/23 07:46 O2 Del Method Room Air 08/19/23 07:46 BMI result Body Mass Index 31.8 Const: General: comfortable and no acute distress Orientation/consciousness: patient oriented x3 HEENT: Other: Unremarkable Head: Yes normal to inspection Neck: Neck: Yes normal visual inspection Chest: Chest palpation & inspection: normal inspection of the chest Resp: Auscultation: clear to auscultation bilaterally Cardio: Palpation: normal PMI Heart sounds: S1 normal heart sound present, S2 normal heart sound present, no gallops, no murmurs and no rubs GI: Palpation (GI): Soft to palpation Back/Spine/Pelvis: Other: unremarkable Skin: General skin exam: no rashes or lesions noted Neuro: General: patient oriented x3 Extrem: General: Yes normal to inspection Psych: Mental Status: mental status grossly normal Objective Labs and Meds 08/19/23 06:32 08/19/23 06:32 Lab results: Laboratory Results - last 24 hr 08/17/23 08/19/23 18:56 06:32 WBC 4.2 L RBC 3.17 L Hgb 10.5 L Hct 30.7 L MCV 96.8 MCH 33.1 H MCHC 34.2 RDW 12.9 Plt Count 128 L MPV 10.0 Absolute Nucleated RBC 0.000 Nucleated RBC % (auto) 0.0 Sodium 142 Potassium 3.9 Chloride 110 H Carbon Dioxide 24 Anion Gap 12 BUN 68 H Creatinine 2.68 H Estim Creat Clear Calc 32.2 Estimated GFR 24 Random Glucose 95 Calcium 8.3 L Stl C. cayetanensis PCR Not Detected Stool Rotavirus A PCR Not Detected Stl Adenov F 40/41 PCR Not Detected Stool Astrovirus (PCR) Not Detected Stool Campylobacter PCR Not Detected Stool Cryptosporidium PCR Not Detected Stl Sh Tox Pr E STEC PCR Not Detected Stool E coli O157 PCR Not applicable Stl Enterotoxigenic E PCR Not Detected Stool EPEC (PCR) Not Detected Stool EAEC (PCR) Not Detected Stl E. histolytica PCR Not Detected Stool Giardia Lamblia PCR Not Detected Stl P. shigelloides PCR Not Detected Stool Salmonella PCR Not Detected Stool Sapovirus (PCR) Not Detected Stl Shigella/EIEC PCR Not Detected St Y.enterocolitica PCR Not Detected Stool Vibrio (PCR) Not Detected Stl Vibrio cholerae PCR Not Detected Stl Norovirus GI/GII PCR Not Detected Assessment and Plan (1) Atrial flutter with rapid ventricular response: Status: Acute (2) Acute renal failure: Qualifiers: Acute renal failure type: unspecified Qualified Code(s): N17.9 - Acute kidney failure, unspecified Status: Acute (3) Hemophilia A: Status: Acute Plan Currently on telemetry, atrial flutter rate is about 110/Min. In the Holter from last year, he was in sinus rhythm. In the recent echocardiogram, LVEF 65-70%. No wall motion abnormalities. Otherwise unremarkable. Overall, atrial flutter in setting of acute renal failure. May use beta-blockers/diltiazem for rate control. To optimize dosing based on blood pressures/heart rate. With regard to anticoagulation, he is listed to have hemophilia as a diagnosis. Will need to discuss with Hematology. Discussed with Dr. Hirsch. Procedures Date of Service Date of Service: 08/19/23
--- NOTE | 2023-08-19 10:16 | P.PNIM_ITS ---
Subjective Subjective Date of Service: 08/19/23 Interval History: In atrial flutter in 110s SCr improving No tremors Review of Systems Review of Systems: Yes all other systems are reviewed and are negative Physical Exam 2 Vital Signs: Vital Signs: Last Vital Signs Temp 97.2 F 08/19/23 07:46 Pulse 78 08/19/23 07:46 Resp 18 08/19/23 07:46 BP 118/55 L 08/19/23 07:46 Pulse Ox 97 08/19/23 07:46 O2 Del Method Room Air 08/19/23 07:46 BMI result Body Mass Index 31.8 Gen: in no acute distress HEENT: sclera anicteric, moist mucus membranes Neck: supple Lungs: clear to auscultation bilaterally Heart: irregular, no murmurs Abd: soft, non-tender, non-distended, ileostomy with liquid output Ext: no edema Skin: warm/well-perfused Neuro: alert and oriented x3, no focal findings Psych: appropriate affect Objective Data Active Medications Acetaminophen (Acetaminophen 325 Mg Tablet) 650 mg PO Q6H PRN PRN Reason: Pain, Mild (Pain Scale 1-3) Last Admin: 08/18/23 21:03 Dose: 650 mg Documented By: ALICE Cyanocobalamin (Cyanocobalamin (Vitamin B-12) 500 Mcg Tablet) 250 mcg PO DAILY [facility] Last Admin: 08/19/23 09:26 Dose: 250 mcg Documented By: NATHAN Heparin Sodium (Porcine) (Heparin Sodium,Porcine 5,000 Unit/Ml Vial) 5,000 unit SUBCUT Q8H [facility] Last Admin: 08/19/23 10:08 Dose: Not Given Documented By: NATHAN Non-Admin Reason: Patient Refused Sodium Chloride (Ns) 1,000 mls @ 80 mls/hr IVCONT .[id number] [facility] Last Admin: 08/19/23 09:30 Dose: 80 mls/hr Documented By: NATHAN Loperamide HCl (Loperamide Hcl 2 Mg Capsule) 2 mg PO Q6H PRN PRN Reason: Diarrhea Last Admin: 08/18/23 15:18 Dose: 2 mg Documented By: NATHAN Melatonin (Melatonin 3 Mg Tablet) 6 mg PO BEDTIME PRN PRN Reason: Insomnia Metoprolol Succinate (Metoprolol Succinate Er 25 Mg Tab.Er.24h) 25 mg PO DAILY [facility]; Protocol Last Admin: 08/19/23 09:27 Dose: 25 mg Documented By: NATHAN Metoprolol Tartrate (Metoprolol Tartrate 5 Mg/5 Ml Vial) 2.5 mg IVPUSH ONCE ONE Stop: 08/19/23 10:16 Ondansetron HCl (Ondansetron Hcl 4 Mg/2 Ml Vial) 4 mg IVPUSH Q8H PRN PRN Reason: Nausea and Vomiting Oxycodone HCl (Oxycodone Hcl Immed Release 5 Mg Tablet) 5 mg PO Q4H PRN PRN Reason: mod-sev pain Last Admin: 08/19/23 09:26 Dose: 5 mg Documented By: NATHAN Pharmacy Consult (Consult Rx Etoh Phenob Im/Po) 1 each MISCELLANE ONCE PRN; Protocol PRN Reason: Consult order Phenobarbital (Phenobarbital 30 Mg Tablet) 60 mg PO BID [facility]; Protocol Stop: 08/19/23 21:01 Last Admin: 08/19/23 09:27 Dose: 60 mg Documented By: NATHAN Phenobarbital (Phenobarbital 30 Mg Tablet) 30 mg PO BID [facility]; Protocol Stop: 08/21/23 21:01 Phenobarbital (Phenobarbital 30 Mg Tablet) 30 mg PO DAILY [facility]; Protocol Stop: 08/23/23 09:01 Psyllium Hydrophilic Mucilloid (Psyllium Seed 3.7 Gm Packet) 3.7 gm PO DAILY [facility] Last Admin: 08/19/23 09:27 Dose: 3.7 gm Documented By: NATHAN Pyridoxine HCl (Pyridoxine Hcl (Vitamin B6) 50 Mg Tablet) 100 mg PO DAILY [facility] Last Admin: 08/19/23 09:26 Dose: 100 mg Documented By: NATHAN Sodium Chloride (0.9 % Sodium Chloride Flush 3 Ml Syringe) [facility] Last Admin: 08/19/23 10:08 Dose: Not Given Documented By: NATHAN Non-Admin Reason: IV Running Thiamine HCl (Thiamine Hcl 100 Mg Tablet) 100 mg PO DAILY [facility] Last Admin: 08/19/23 09:26 Dose: 100 mg Documented By: NATHAN Labs 08/19/23 06:32 08/19/23 06:32 Labs: Laboratory Results - last 24 hr 08/17/23 08/19/23 18:56 06:32 MCV 96.8 MCH 33.1 H MCHC 34.2 RDW 12.9 Plt Count 128 L MPV 10.0 Absolute Nucleated RBC 0.000 Nucleated RBC % (auto) 0.0 Anion Gap 12 Estim Creat Clear Calc 32.2 Estimated GFR 24 Random Glucose 95 Calcium 8.3 L Stl C. cayetanensis PCR Not Detected Stool Rotavirus A PCR Not Detected Stl Adenov F 40/41 PCR Not Detected Stool Astrovirus (PCR) Not Detected Stool Campylobacter PCR Not Detected Stool Cryptosporidium PCR Not Detected Stl Sh Tox Pr E STEC PCR Not Detected Stool E coli O157 PCR Not applicable Stl Enterotoxigenic E PCR Not Detected Stool EPEC (PCR) Not Detected Stool EAEC (PCR) Not Detected Stl E. histolytica PCR Not Detected Stool Giardia Lamblia PCR Not Detected Stl P. shigelloides PCR Not Detected Stool Salmonella PCR Not Detected Stool Sapovirus (PCR) Not Detected Stl Shigella/EIEC PCR Not Detected St Y.enterocolitica PCR Not Detected Stool Vibrio (PCR) Not Detected Stl Vibrio cholerae PCR Not Detected Stl Norovirus GI/GII PCR Not Detected Microbiology Microbiology Results: Microbiology 08/17/23 11:25 Blood Culture - Preliminary Blood - Venous No growth after 24 hours. 08/17/23 11:24 Blood Culture - Preliminary Blood - Venous No growth after 24 hours. Assessment and Plan (1) Acute renal failure: Status: Acute Assessment and Plan: d3 73yo M with hx SVT/atrial ectopy, hemophilia A, ileostomy due to Crohn's disease, HTN presenting with lightheadedness, dizziness, malaise x 1 week admitted for LACY, hypotension, atrial flutter hypotension LACY, prerenal acute metabolic acidosis lactic acidosis - continuing to improve; switch IV bicarbonate to NS; Nephrology following new-onset atrial flutter - TTE 08/18/23: The left ventricular systolic function is normal. The visually estimated ejection fraction is between 65-70%. - No obvious valvular pathology seen on this study. - Cardiology consult - increase metoprolol succinate to 25 mg bid - Hematology consult re: anticoagulating a pt with hemophilia ileostomy - question of excess output which may have contributed to his dehydration. GI consult. Cdiff + GI panel negative. prn loperamide back pain - prn APAP EtOH withdrawal - phenobarbital taper, Addiction Medicine consultation hemophilia A, mild - Hematology consult as above vit B12 deficiency - continue replacement VTE ppx - SCDs dispo - PT consult In my clinical judgment, the patient requires continued inpatient hospitalization for the following reasons: LACY Total time managing care of this patient today: 45 minutes. Quality Stroke Does the patient have a stroke diagnosis?: No VTE Prior VTE?: No VTE Risk Level:: Medical - moderate - high VTE Device Contraindication: Treatment Not Indicated VTE Drug Contraindication: N/A - Med Ordered
[2023-08-19] MEDS: Metoprolol Tartrate 5 MG/5 ML VIAL 2.5 MG IVPUSH (10:40)
--- NOTE | 2023-08-19 14:50 | MHC.RECOVRN ---
RN met with patient in room 478-1 for Addiction Medicine Consult for ? alcohol use disorder. Upon arrival, patient sitting up in his chair. Patient has a noticeable hand tremor bilat. Last CIWA=1, appears to be tolerating Phenobarbital 60mg PO. He reports that he's had the tremors for a long time even since the 80s and reports his father & grandfather had them as well. He mentioned that his believes he may have early signs of Parkinson's. He denies any other s/s of withdrawal. He reports drinking 3 PBRs per day usually to watch the game, or with dinners... like get togethers . Patient does not feel he has an alcohol use disorder, therefore declines additional recovery support at this time. Discussed with Nayla Jensen APRN.
[2023-08-19] MEDS: 0.9 % Sodium Chloride Flush 3 ML SYRINGE IVFLUSH (15:30)
--- NOTE | 2023-08-19 18:30 | PM.EVENT ---
Event Note Date of Service: 08/19/23 Event Note: GI Consult-Full note dictated Imp: I don't think the ileostomy output as he describes it would account for his acute renal failure. He describes some increase in postprandial output but nothing particularly different or more watery than over the past 6-12 months. He appears stable from a GI standpoint. He presently appears and feels well. Rec: Investigate for other causes of renal failure. Diet as tolerated, but I added a Lactose-free restriction in regard to the somewhat increase in ostomy output on a postprandial basis. Agree with Imodium prn. I ordered an anemia w/u with iron, B12, and Folate levels. Although they were normal early this year so I suspect that will remain the case. The anemia may be from his acute renal failure.I told him to make a F/U OV with me for 2023 for follow up of his previous Chronic Hep C. He was comfortable with this plan. Thanks Time Spent With Patient Time: Total time managing care of this patient today ____ minutes.
[2023-08-20] VITALS: BP 110/56; PULSE 74; RESP 19; TEMP 36.7; O2SAT 95
--- NOTE | 2023-08-20 02:05 | CONS_ITS ---
DATE OF SERVICE: 08/19/2023 REASON FOR CONSULTATION: Question of increased ileostomy output and anemia. HISTORY OF PRESENT ILLNESS: The patient is a 73-year-old male well known to me from previous office visits in relation to previous chronic hepatitis C. The patient does have a distant history of Crohn's disease for which he underwent a proctocolectomy with permanent ileostomy about 50 years ago. He had a revision of the ileostomy about 30 years ago. He does have a chronic parastomal hernia there which has been evaluated by Dr. Nazario in the past, but has not undergone repeat surgery. In any event, the patient describes about 2 weeks of progressive nausea, anorexia, and weakness. He finally came to the ER due to lightheadedness and was found to be in significant renal failure. Since admission here he has received IV hydration and his creatinine has dramatically improved, although still not completely normal. He is feeling better. He reports that his appetite has improved and he is eating comfortably. From a GI standpoint, he describes currently a good appetite. He denies any chronic heartburn or dysphagia. He has had the above-mentioned nausea, but no vomiting. He denies any abdominal pain or jaundice. He denies any weight loss. He describes that his ileostomy output has not been associated with any melena nor hematochezia. He describes over the past 6 to 12 months, he has noticed some increased postprandial output in the ileostomy, but not particularly watery or loose. Over these past 2 or 3 weeks, he has not noticed any particular change in that regard. Specifically, he denies any increased watery output from the ileostomy. Overall, he thinks things are stable in that regard over at least the past 6 to 12 months. He does not use any chronic NSAIDs. CURRENT MEDICATIONS: His medications here in the hospital include acetaminophen p.r.n., oral vitamin B12, Imodium p.r.n., melatonin p.r.n., metoprolol, Zofran, oxycodone p.r.n., phenobarbital, psyllium, vitamin B6, and thiamine. His medication list at home included calcium carbonate, vitamin B12, metoprolol, nystatin topical used p.r.n., potassium citrate, vitamin B6, and simvastatin. PAST MEDICAL HISTORY: Crohn's disease with surgery as above; previous chronic hepatitis C, treated successfully with a 24-week course of Harvoni in July 2015. 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 He has asymptomatic gallstones. Hemophilia. Kidney stones. He denies history of IA, diabetes, stroke, nor lung disease. Surgeries include the above-mentioned proctocolectomy and ileostomy, wrist surgery, finger surgery, ileostomy revision, cataract surgery. SOCIAL HISTORY: He is . He does not smoke. He denies any significant alcohol use. 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 REVIEW OF SYSTEMS: CONSTITUTIONAL: He has been feeling poorly over the past couple of weeks as described in the history of present illness with some weakness, fatigue, and anorexia. SKIN: No rash, no pruritus. CARDIAC: No chest pain. PULMONARY: No cough or hemoptysis. GI: As above. URINARY: No dysuria, no hematuria. PHYSICAL EXAMINATION: GENERAL: Again, the patient is a pleasant, alert, comfortable-appearing male. SKIN: Warm and dry. Nonjaundiced. Anicteric sclerae. NECK: Supple. CARDIAC: Normal S1, S2. ABDOMEN: Soft, nondistended, nontender without mass. NEUROLOGIC: He is alert and oriented. LABORATORY DATA: Hemoglobin on admission was 12.9, which has drifted down to 10.5 with MCV of 97. Hemoglobin was 14.5 back in November. Platelets 128,000. PT 11.0 with INR 0.9. Admitting lab showed BUN 98 with creatinine 9.7. Sodium 130, potassium 5.2. In November of this year, his BUN was 12 with a creatinine of 1.1. In November, he had an iron of 137 with iron saturation of 37% and a ferritin of 59. B12 and folate levels were normal in November as well. His labs from today showed normal electrolytes, BUN 68, and creatinine 2.7. IMAGING STUDIES: He did have a CT of the abdomen and pelvis on admission, describing no sign of any liver mass. There is no splenomegaly nor pancreatic disease. GI tract was unremarkable other than the previous known large parastomal hernia, but without bowel obstruction. He does have his known gallstones, but without any sign of cholecystitis nor biliary obstruction. The addendum on the CT scan describes some very questionable findings in the distal left ureter suggestive of possible passage of a stone or other abnormality. IMPRESSION: From a GI standpoint, he appears to be doing well. Given his description, I do not think the ileostomy output would account for his significant renal failure. I suspect the 2 to 3 weeks of preceding symptoms of nausea, fatigue, and anorexia were in relation to probable progressive renal failure. However, I do not think the ileostomy output would account for that. He describes that the bowel movements are perhaps somewhat increased on a postprandial basis, but not particularly watery and frequent enough to account for such severe dehydration and renal failure. Therefore, he may have some other etiology of that, such as one of his medications, which would need to be evaluated further from a Nephrology standpoint. From a GI standpoint, the only change I would make is perhaps put him on a lactose-free diet, p.r.n. Imodium, and perhaps some increased supplemental fiber could be used as well. However, at this point, I do not think anything major has to be done in that regard unless the situation was to change in regard to the ileostomy output. I have ordered a workup for the anemia. I have ordered repeat labs in the morning including iron studies, B12, and folate levels. Given the normal studies back in November, I suspect they will remain normal and his anemia could be related to his acute illness in regard to the renal failure. I did advise him to make an appointment to see me for 2023 in regard to the previous history of hepatitis C. This has all been discussed in detail with him and he is comfortable with that plan. Thanks for the consultation. MD MICHELE Sauceda/TEE / [phone] [email or web address]
[2023-08-20 03:29] VITALS: BP 117/70; PULSE 78; RESP 17; TEMP 36.7; O2SAT 97
[2023-08-20] MEDS: oxyCODONE HCl Immed Release 5 MG TABLET PO ×4 (05:24→21:46)
[2023-08-20 07:07] LABS: Hematocrit 32.6 % (42.0-52.0); Mean Corpuscular HGB Conc 33.7 g/dl (31.0-36.0); Mean Corpuscular Hemoglobin 33.3 pg (27.0-33.0); Mean Corpuscular Volume 98.8 fL (80.0-98.0); Mean Platelet Volume 9.8 fL (9.4-12.4); Platelet Count 135 X10*3/uL (160-400); Red Cell Distribution Width 13.1 % (11.0-16.0); White Blood Count 5.6 X10*3/uL (4.8-10.8)
[2023-08-20 07:23] LABS: Anion Gap 10 (12-20); Blood Urea Nitrogen 45 mg/dL (9-16); Calcium 8.4 mg/dL (8.4-10.2); Carbon Dioxide 23 mmol/L (22-29); Chloride 112 mmol/L (96-108); Creatinine Clr Calc Pharmacy 51.2; Estimated Glomerular Filt Rate 40; Glucose Random 87 mg/dL (60-115); Iron 86 mcg/dL (45-160); Percent Iron Saturation 42 % (15-50); Potassium 4.1 mmol/L (3.3-5.1); Sodium 141 mmol/L (135-145); Total Iron Binding Capacity 207 mcg/dL (228-428); Unsaturated Iron Binding 121 ug/dL
[2023-08-20 07:37] VITALS: BP 113/63; PULSE 66; RESP 18; TEMP 36.9; O2SAT 95
[2023-08-20 07:39] LABS: Ferritin 451 ng/mL (20-250)
[2023-08-20 07:49] LABS: Folate 5.6 ng/mL (> or = 4.0); Vitamin B12 859 pg/mL (200-900)
[2023-08-20] MEDS: Psyllium seed 3.7 GM PACKET PO (09:08)
[2023-08-20] MEDS: Pyridoxine HCl (Vitamin B6) 50 MG TABLET 100 MG PO (09:09)
[2023-08-20] MEDS: Metoprolol Succinate ER 25 MG TAB.ER.24H PO (09:09)
[2023-08-20] MEDS: Cyanocobalamin (Vitamin B-12) 500 MCG TABLET 250 MCG PO (09:09)
[2023-08-20] MEDS: 0.9 % Sodium Chloride Flush 3 ML SYRINGE IVFLUSH (09:09)
[2023-08-20] MEDS: 0.9 % Sodium Chloride 1,000 ML 80 ML IVCONT ×2 (09:09→21:43)
[2023-08-20] MEDS: PHENobarbitaL 30 MG TABLET PO ×2 (09:09→20:23)
[2023-08-20] MEDS: Thiamine HCL 100 MG TABLET PO (09:09)
[2023-08-20] MEDS: Acetaminophen 325 MG TABLET 650 MG PO (10:37)
--- NOTE | 2023-08-20 10:39 | P.CNHO_ITS ---
Subjective - Subjective Primary Care Provider: Jennifer Parikh MD HPI - Consult Narrative Narrative: Dirk Rosado is a 73 year old male Review of Systems - Neurologic Reports no additional neurologic complaints, Reports as per HPI, Reports dizziness PMFSH Medical History: Medical History (Last Reviewed 08/19/23 @ 14:58 by Keara Marsh, PT) Atrial arrhythmia Loja cyst BPH (benign prostatic hyperplasia) Cholelithiasis Crohn's disease Dyspnea on exertion Edema of lower extremity Essential hypertension Gout Hemophilia History of cataract History of hepatitis C Lymphangitis Nocturnal hypoxemia Obesity (BMI 30-39.9) Osteopenia Parastomal hernia Peripheral vascular disease Renal stones Restrictive lung disease Thrombocytopenia Family History: Family History (Last Reviewed 08/17/23 @ 18:14 by MIGUEL ÁNGEL Ramirez) Father Prostate cancer Mother Diabetes Maternal Grandfather Factor VIII deficiency hemophilia Surgical History: Surgical History (Last Reviewed 08/19/23 @ 14:58 by Keara Marsh PT) H/O tooth extraction H/O wrist surgery History of appendectomy History of cataract surgery History of urethral stent S/P colectomy Status post ablation of incompetent vein using laser Onset Date: 01/13/23 Social History: Social History (Last Reviewed 08/17/23 @ 18:14 by MIGUEL ÁNGEL Ramirez) Living Situation History: Household Members: Spouse Household Members Other:: 1 Housing: House Are you a primary primary care md to a significant other at home: No Do you presently have visiting nurse or other home services: No Alcohol History Details: 1. How often do you have a drink containing alcohol?: e. 4 or more times a week 2. How many drinks containing alcohol do you have on a typical day when you are drinking?: b. 3 or 4 3. How often do you have six or more drinks on one occasion?: a. Never AUDIT-C Alcohol total score: 5 Last drink: Days (ago) Currently Displaying Signs/Symptoms of Alcohol Withdrawal: No Tobacco History: Patient Tobacco Use Status: Never used Tobacco Smoked in Last 30 Days: No e-Cigarette/Vaping Use: Never Used Second Hand Smoke Exposure: No Substance Use History: Use of substances other than those prescribed or required for medical reasons : No Currently Displaying Signs/Symptoms of Drug Intoxication Withdrawal: No Any prior treatment program specific to substance use: No Domestic Abuse History: Have you been hit, kicked, punched, or otherwise hurt by someone within the past year? If so, by whom?: No Do you feel safe in your current relationship?: No Is there a partner from a previous relationship who is making you feel unsafe now?: No Are you made to feel afraid or neglected: No Advance Directives: Advance Directives: No Advance Directives Information Provided: Yes Homicidal Assessment: Do you have thoughts of harming others: None Do you have a plan to hurt others: No Plan Nutrition Assessment: Recently lost weight without trying: No How much weight loss: Not applicable Eating poorly because of decreased appetite: No Nutrition screen score: 0 Nutrition Risks: No Nutritional Risk Poor oral hygiene: No Occupation Assessmet: service: No Current occupational status: retired Home Medications and Allergies Current Medications: Current Medications Acetaminophen (Acetaminophen 325 Mg Tablet) 650 mg PO Q6H PRN PRN Reason: Pain, Mild (Pain Scale 1-3) Last Admin: 08/20/23 10:37 Dose: 650 mg Cyanocobalamin (Cyanocobalamin (Vitamin B-12) 500 Mcg Tablet) 250 mcg PO DAILY [facility] Last Admin: 08/20/23 09:09 Dose: 250 mcg Sodium Chloride (Ns) 1,000 mls @ 80 mls/hr IVCONT .[id number] [facility] Last Admin: 08/20/23 09:09 Dose: 80 mls/hr Loperamide HCl (Loperamide Hcl 2 Mg Capsule) 2 mg PO Q6H PRN PRN Reason: Diarrhea Last Admin: 08/18/23 15:18 Dose: 2 mg Melatonin (Melatonin 3 Mg Tablet) 6 mg PO BEDTIME PRN PRN Reason: Insomnia Metoprolol Succinate (Metoprolol Succinate Er 12.5 Mg Halftab.Er.24h) 37.5 mg PO BID [facility]; Protocol Ondansetron HCl (Ondansetron Hcl 4 Mg/2 Ml Vial) 4 mg IVPUSH Q8H PRN PRN Reason: Nausea and Vomiting Oxycodone HCl (Oxycodone Hcl Immed Release 5 Mg Tablet) 5 mg PO Q4H PRN PRN Reason: mod-sev pain Last Admin: 08/20/23 09:18 Dose: 5 mg Pharmacy Consult (Consult Rx Etoh Phenob Im/Po) 1 each MISCELLANE ONCE PRN; Protocol PRN Reason: Consult order Phenobarbital (Phenobarbital 30 Mg Tablet) 30 mg PO BID [facility]; Protocol Stop: 08/21/23 21:01 Last Admin: 08/20/23 09:09 Dose: 30 mg Phenobarbital (Phenobarbital 30 Mg Tablet) 30 mg PO DAILY [facility]; Protocol Stop: 08/23/23 09:01 Psyllium Hydrophilic Mucilloid (Psyllium Seed 3.7 Gm Packet) 3.7 gm PO DAILY [facility] Last Admin: 08/20/23 09:08 Dose: 3.7 gm Pyridoxine HCl (Pyridoxine Hcl (Vitamin B6) 50 Mg Tablet) 100 mg PO DAILY [facility] Last Admin: 08/20/23 09:09 Dose: 100 mg Sodium Chloride (0.9 % Sodium Chloride Flush 3 Ml Syringe) 3 ml IVFLUSH QSHIFT [facility] Last Admin: 08/20/23 09:09 Dose: 3 ml Thiamine HCl (Thiamine Hcl 100 Mg Tablet) 100 mg PO DAILY [facility] Last Admin: 08/20/23 09:09 Dose: 100 mg Home Medications Medication Instructions Recorded Confirmed Type calcium carbonate 600 mg-vitamin 1 tab PO DAILY 08/03/20 08/17/23 History D3 5 mcg (200 unit) tablet (Calcium 600 + D(3)) cyanocobalamin (vitamin B-12) 250 250 mcg PO DAILY 08/03/20 08/17/23 History mcg lozenges nystatin 100,000 unit/gram topical 1 appl topical DAILY PRN Skin 08/04/22 08/17/23 History powder Irritation Allergies Allergy/AdvReac Type Severity Reaction Status Date / Time No Known Allergies Allergy Verified 06/22/23 13:07 Physical Exam Vital signs: Vital Signs Temp 98.4 F 08/20/23 07:37 Pulse 66 08/20/23 07:37 Resp 18 08/20/23 07:37 BP 113/63 08/20/23 07:37 Pulse Ox 95 08/20/23 07:37 O2 Del Method Room Air 08/20/23 07:37 Intake & Output 08/19/23 08/20/23 08/20/23 18:59 06:59 18:59 Intake Total 1455 / 2436.333 981.333 / 2436.333 910.667 / 910.667 Output Total 1000 / 1550 550 / 1550 Balance 455 / 886.333 431.333 / 886.333 910.667 / 910.667 Urine Output (Average ml/kg/hr) 0.15 0.23 0.23 Intake: Intake, Oral Amount 480 / 480 Intake, IV Amount 975 / 1956.333 981.333 / 1956.333 910.667 / 910.667 Sodium Bicarbonate 8.4% 100 meq 975 / 975 In Dextrose 5 % and 0.45 % NaCl 900 ml @ 100 mls/hr IV . Q10H [facility] Rx#:[id number] 0.9 % Sodium Chloride 1,000 ml 981.333 / 981.333 910.667 / 910.667 @ 80 mls/hr IVCONT .[id number] [facility] Rx#:[id number] Output: Output, Urine Amount 200 / 500 300 / 500 Output, Stool Amount 800 / 800 Output, Emesis Amount 250 / 250 Other: Meal Refused No NPO No Breakfast % Eaten 100% Lunch % Eaten 100% Number of Unmeasured Voids 2 1 Urine Bathroom Urine Color Yellow Last Bowel Movement 08/19/23 Stool Ostomy Ostomy Stool Amount Moderate Large Stool Color Brown Brown Stool Consistency Liquid Liquid Weight 109.2 kg Hem/Onc Consult Result - Labs CBC & Chem 7: 08/20/23 06:51 08/20/23 06:51 Labs: Short CBC 08/20/23 Range/Units 06:51 WBC 5.6 (4.8-10.8) X10*3/uL Hgb 11.0 L (14.0-18.0) g/dl Hct 32.6 L (42.0-52.0) % Plt Count 135 L (160-400) X10*3/uL BMP 08/20/23 06:51 Sodium 141 Potassium 4.1 Chloride 112 H Carbon Dioxide 23 BUN 45 H Creatinine 1.69 H Calcium 8.4
[2023-08-20 10:59] VITALS: BP 97/58; PULSE 97; RESP 18; TEMP 36.9; O2SAT 97
--- NOTE | 2023-08-20 11:00 | P.PNIM_ITS ---
Subjective Subjective Date of Service: 08/20/23 Interval History: feels well AF rate still in 100s Review of Systems Review of Systems: Yes all other systems are reviewed and are negative Physical Exam 2 Vital Signs: Vital Signs: Last Vital Signs Temp 98.4 F 08/20/23 07:37 Pulse 66 08/20/23 07:37 Resp 18 08/20/23 07:37 BP 113/63 08/20/23 07:37 Pulse Ox 95 08/20/23 07:37 O2 Del Method Room Air 08/20/23 07:37 BMI result Body Mass Index 31.8 Gen: in no acute distress HEENT: sclera anicteric, moist mucus membranes Neck: supple Lungs: clear to auscultation bilaterally Heart: irregular, no murmurs Abd: soft, non-tender, non-distended, ileostomy with liquid output Ext: no edema Skin: warm/well-perfused Neuro: alert and oriented x3, no focal findings Psych: appropriate affect Objective Data Active Medications Acetaminophen (Acetaminophen 325 Mg Tablet) 650 mg PO Q6H PRN PRN Reason: Pain, Mild (Pain Scale 1-3) Last Admin: 08/20/23 10:37 Dose: 650 mg Documented By: CHINMAY Cyanocobalamin (Cyanocobalamin (Vitamin B-12) 500 Mcg Tablet) 250 mcg PO DAILY [facility] Last Admin: 08/20/23 09:09 Dose: 250 mcg Documented By: JYOTI Sodium Chloride (Ns) 1,000 mls @ 80 mls/hr IVCONT .[id number] [facility] Last Admin: 08/20/23 09:09 Dose: 80 mls/hr Documented By: JYOTI Loperamide HCl (Loperamide Hcl 2 Mg Capsule) 2 mg PO Q6H PRN PRN Reason: Diarrhea Last Admin: 08/18/23 15:18 Dose: 2 mg Documented By: NATHAN Melatonin (Melatonin 3 Mg Tablet) 6 mg PO BEDTIME PRN PRN Reason: Insomnia Metoprolol Succinate (Metoprolol Succinate Er 12.5 Mg Halftab.Er.24h) 37.5 mg PO BID [facility]; Protocol Ondansetron HCl (Ondansetron Hcl 4 Mg/2 Ml Vial) 4 mg IVPUSH Q8H PRN PRN Reason: Nausea and Vomiting Oxycodone HCl (Oxycodone Hcl Immed Release 5 Mg Tablet) 5 mg PO Q4H PRN PRN Reason: mod-sev pain Last Admin: 08/20/23 09:18 Dose: 5 mg Documented By: JYOTI Pharmacy Consult (Consult Rx Etoh Phenob Im/Po) 1 each MISCELLANE ONCE PRN; Protocol PRN Reason: Consult order Phenobarbital (Phenobarbital 30 Mg Tablet) 30 mg PO BID [facility]; Protocol Stop: 08/21/23 21:01 Last Admin: 08/20/23 09:09 Dose: 30 mg Documented By: JYOTI Phenobarbital (Phenobarbital 30 Mg Tablet) 30 mg PO DAILY [facility]; Protocol Stop: 08/23/23 09:01 Psyllium Hydrophilic Mucilloid (Psyllium Seed 3.7 Gm Packet) 3.7 gm PO DAILY [facility] Last Admin: 08/20/23 09:08 Dose: 3.7 gm Documented By: JYOTI Pyridoxine HCl (Pyridoxine Hcl (Vitamin B6) 50 Mg Tablet) 100 mg PO DAILY [facility] Last Admin: 08/20/23 09:09 Dose: 100 mg Documented By: JYOTI Sodium Chloride (0.9 % Sodium Chloride Flush 3 Ml Syringe) 3 ml IVFLUSH QSHIFT [facility] Last Admin: 08/20/23 09:09 Dose: 3 ml Documented By: JYOTI Thiamine HCl (Thiamine Hcl 100 Mg Tablet) 100 mg PO DAILY [facility] Last Admin: 08/20/23 09:09 Dose: 100 mg Documented By: JYOTI Labs 08/20/23 06:51 08/20/23 06:51 Labs: Laboratory Results - last 24 hr 08/19/23 08/20/23 11:27 06:51 MCV 98.8 H MCH 33.3 H MCHC 33.7 RDW 13.1 Plt Count 135 L MPV 9.8 Absolute Nucleated RBC 0.000 Nucleated RBC % (auto) 0.0 APTT 39.0 H Anion Gap 10 L Estim Creat Clear Calc 51.2 Estimated GFR 40 Random Glucose 87 Calcium 8.4 Iron 86 TIBC 207 L % Saturation 42 Unsat Iron Binding 121 Ferritin 451 H Vitamin B12 859 Folate 5.6 Microbiology Microbiology Results: Microbiology 08/17/23 11:24 Blood Culture - Preliminary Blood - Venous No growth after 48 hours. 08/17/23 11:25 Blood Culture - Preliminary Blood - Venous No growth after 48 hours. Assessment and Plan (1) Acute renal failure: Status: Acute Assessment and Plan: d4 73yo M with hx SVT/atrial ectopy, hemophilia A, ileostomy due to Crohn's disease, HTN presenting with lightheadedness, dizziness, malaise x 1 week admitted for LACY, hypotension, atrial flutter hypotension LACY, prerenal acute metabolic acidosis lactic acidosis - continuing to improve; switched IV bicarbonate to NS; Nephrology following; recheck BMP in AM new-onset atrial flutter - TTE 08/18/23: The left ventricular systolic function is normal. The visually estimated ejection fraction is between 65-70%. - No obvious valvular pathology seen on this study. - Cardiology consult - increase metoprolol succinate to 37.5 mg daily - Hematology consulted regarding AC with hemophilia; for now, will stick to ASA 81 mg daily; factor 8 level sent and pending ileostomy - question of excess output which may have contributed to his dehydration. GI consulted; recommend fiber, prn loperamide, and trial of lactose-free diet. Cdiff + GI panel negative. back pain - prn APAP EtOH withdrawal - phenobarbital taper, Addiction Medicine consultation hemophilia A, mild - Hematology consult as above vit B12 deficiency - continue replacement VTE ppx - SCDs dispo - PT consult In my clinical judgment, the patient requires continued inpatient hospitalization for the following reasons: LACY, rate control of AF Total time managing care of this patient today: 45 minutes. Quality Stroke Does the patient have a stroke diagnosis?: No VTE Prior VTE?: No VTE Risk Level:: Medical - moderate - high VTE Device Contraindication: Treatment Not Indicated VTE Drug Contraindication: N/A - Med Ordered
--- NOTE | 2023-08-20 11:21 | PM.PNCARD ---
Subjective Subjective Date of Service: 08/20/23 Principal diagnosis: LACY Interval history: He states he is feeling fine. No symptoms from the atrial flutter. Review of Systems Review of Systems Yes all other systems are reviewed and are negative Constitutional: Reports as per HPI and Reports no additional constitutional complaints Eyes: Reports as per HPI and Denies no additional eye complaints Denies system reviewed and no additional complaints, except as documented and Reports as per HPI Cardiovascular: Reports as per HPI, Reports no additional cardiovascular complaints, Denies acrocyanosis, Denies cool extremities, Denies chest pain, Denies leg edema, Denies lightheadedness, Denies palpitations and Denies dyspnea Respiratory: Reports as per HPI, Denies no additional respiratory complaints and Denies dyspnea Gastrointestinal: Reports as per HPI and Denies no additional gastrointestinal complaints Genitourinary: Reports no additional male genitourinary complaints and Reports as per HPI Musculoskeletal: Reports no additional musculoskeletal complaints and Reports as per HPI Skin/Breast: Reports system reviewed and no additional complaints, except as docu Reports system reviewed and no additional complaints, except as documented and Reports as per HPI Psychiatric: Reports no additional psychiatric complaints and Reports as per HPI Endocrine: Reports no additional endocrine complaints, Reports as per HPI and Denies palpitations Hematologic/Lymphatic: Reports no additional hematologic/lymphatic complaints and Reports as per HPI Allergic/Immunologic: Reports no additional allergic/immunologic complaints and Reports as per HPI Physical Exam Vital Signs: Last Vital Signs Temp 98.4 F 08/20/23 10:59 Pulse 97 08/20/23 10:59 Resp 18 08/20/23 10:59 BP 97/58 L 08/20/23 10:59 Pulse Ox 97 08/20/23 10:59 O2 Del Method Room Air 08/20/23 10:59 BMI result Body Mass Index 31.8 Const General: comfortable and no acute distress Orientation/consciousness: patient oriented x3 HEENT Other: Unremarkable Head: Yes normal to inspection Neck Neck: Yes normal visual inspection Chest Chest palpation & inspection: normal inspection of the chest Resp Auscultation: clear to auscultation bilaterally Cardio Palpation: normal PMI Heart sounds: S1 normal heart sound present, S2 normal heart sound present, no gallops, no murmurs and no rubs GI Palpation (GI): Soft to palpation Back/Spine/Pelvis Other: unremarkable Skin General skin exam: no rashes or lesions noted Neuro General: patient oriented x3 Extrem General: Yes normal to inspection Psych Mental Status: mental status grossly normal Objective Labs and Meds 08/20/23 06:51 08/20/23 06:51 Lab results: Laboratory Results - last 24 hr 08/19/23 08/20/23 11:27 06:51 WBC 5.6 RBC 3.30 L Hgb 11.0 L Hct 32.6 L MCV 98.8 H MCH 33.3 H MCHC 33.7 RDW 13.1 Plt Count 135 L MPV 9.8 Absolute Nucleated RBC 0.000 Nucleated RBC % (auto) 0.0 APTT 39.0 H Sodium 141 Potassium 4.1 Chloride 112 H Carbon Dioxide 23 Anion Gap 10 L BUN 45 H Creatinine 1.69 H Estim Creat Clear Calc 51.2 Estimated GFR 40 Random Glucose 87 Calcium 8.4 Iron 86 TIBC 207 L % Saturation 42 Unsat Iron Binding 121 Ferritin 451 H Vitamin B12 859 Folate 5.6 Progress Note: A&P Assessment and plan (1) Atrial flutter with rapid ventricular response: Status: Acute (2) Acute renal failure: Status: Acute (3) Hemophilia A: Status: Acute Plan He still in atrial flutter and rate is around 100/Min. Not too fast but not ideal either. This is a new finding and previously, he was only having sinus rhythm with frequent supraventricular ectopy. Unremarkable echocardiogram with preserved LVEF. Overall, atrial flutter in setting of acute renal failure. The renal failure itself is improving. He remains on beta-blockers but blood pressure is also borderline. Cannot use digoxin due to renal failure. With regard to anticoagulation, he also has hemophilia. Hence automatic pattern edger recommended not to use Eliquis. He is only on a small dose of aspirin. Definitive plan to be decided. Either short-term anticoagulation warfarin plus ablation versus Watchman. Somewhat difficult decision due to hemophilia. Will need to be followed up as an outpatient. Discussed with Dr. Hirsch. Time Spent With Patient Time: Total time managing care of this patient today ____ minutes. Progress Note: Quality Stroke Does the patient have a stroke diagnosis?: No Procedures Date of Service Date of Service: 08/20/23
--- NOTE | 2023-08-20 11:41 | P.CNHO_ITS ---
Subjective - Subjective Chief complaint: Generalized weakness, acute renal failure Patient: known to practice within the last 3 years Consult date: 08/20/23 Primary Care Provider: Jennifer Parikh MD HPI - Consult Narrative Reason for consult: Hemophilia a, need for anticoagulation Narrative: This is a 73-year-old male with past medical history significant for hemophilia A, lung disease, Crohn's disease with history of ileostomy, BPH and peripheral vascular disease was admitted for dizziness and lightheadedness for 1-2 weeks prior to admission. He felt quite dizzy and lightheaded and actually fell at home. He has had reduced appetite and decreased oral intake for several days. He denied nausea, emesis, diarrhea, fever or chills. He reports no travel or changes to his medications. Evaluation in the ED revealed acute kidney injury with BUN of 98 and serum creatinine of 9.73. CT abdomen/pelvis found no acute abnormalities but hepatic steatosis, bilateral renal calculi and cholelithiasis without acute cholecystitis. EKG revealed atrial flutter. Echocardiogram performed 08/18/2023 showed EF of 65-70% with no obvious valvular pathology. Patient states that as far as says hemophilia, he has never had any spontaneous bleeding. He usually gets DDAVP V and factor 8 before surgical procedures. His last surgical procedure was extraction of several teeth a year ago. At this time he denies any complaints and reports feeling much better since getting admitted to the hospital. Review of Systems - Constitutional Reports as per HPI - Cardiovascular Reports no additional cardiovascular complaints - Respiratory Reports no additional respiratory complaints - Gastrointestinal Reports no additional gastrointestinal complaints - Neurologic Reports no additional neurologic complaints, Reports as per HPI, Reports dizziness PMFSH Medical History: Medical History (Last Reviewed 08/19/23 @ 14:58 by Keara Marsh, PT) Atrial arrhythmia Loja cyst BPH (benign prostatic hyperplasia) Cholelithiasis Crohn's disease Dyspnea on exertion Edema of lower extremity Essential hypertension Gout Hemophilia History of cataract History of hepatitis C Lymphangitis Nocturnal hypoxemia Obesity (BMI 30-39.9) Osteopenia Parastomal hernia Peripheral vascular disease Renal stones Restrictive lung disease Thrombocytopenia Family History: Family History (Last Reviewed 08/17/23 @ 18:14 by MIGUEL ÁNGEL Ramirez) Father Prostate cancer Mother Diabetes Maternal Grandfather Factor VIII deficiency hemophilia Surgical History: Surgical History (Last Reviewed 11/18/23 @ 14:58 by Keara Marsh PT) H/O tooth extraction H/O wrist surgery History of appendectomy History of cataract surgery History of urethral stent S/P colectomy Status post ablation of incompetent vein using laser Onset Date: 01/13/23 Social History: Social History (Last Reviewed 08/17/23 @ 18:14 by MIGUEL ÁNGEL Ramirez) Living Situation History: Household Members: Spouse Household Members Other:: 1 Housing: House Are you a primary administrator health care facility to a significant other at home: No Do you presently have visiting nurse or other home services: No Alcohol History Details: 1. How often do you have a drink containing alcohol?: e. 4 or more times a week 2. How many drinks containing alcohol do you have on a typical day when you are drinking?: b. 3 or 4 3. How often do you have six or more drinks on one occasion?: a. Never AUDIT-C Alcohol total score: 5 Last drink: Days (ago) Currently Displaying Signs/Symptoms of Alcohol Withdrawal: No Tobacco History: Patient Tobacco Use Status: Never used Tobacco Smoked in Last 30 Days: No e-Cigarette/Vaping Use: Never Used Second Hand Smoke Exposure: No Substance Use History: Use of substances other than those prescribed or required for medical reasons : No Currently Displaying Signs/Symptoms of Drug Intoxication Withdrawal: No Any prior treatment program specific to substance use: No Domestic Abuse History: Have you been hit, kicked, punched, or otherwise hurt by someone within the past year? If so, by whom?: No Do you feel safe in your current relationship?: No Is there a partner from a previous relationship who is making you feel unsafe now?: No Are you made to feel afraid or neglected: No Advance Directives: Advance Directives: No Advance Directives Information Provided: Yes Homicidal Assessment: Do you have thoughts of harming others: None Do you have a plan to hurt others: No Plan Nutrition Assessment: Recently lost weight without trying: No How much weight loss: Not applicable Eating poorly because of decreased appetite: No Nutrition screen score: 0 Nutrition Risks: No Nutritional Risk Poor oral hygiene: No Occupation Assessmet: service: No Current occupational status: retired Home Medications and Allergies Current Medications: Current Medications Acetaminophen (Acetaminophen 325 Mg Tablet) 650 mg PO Q6H PRN PRN Reason: Pain, Mild (Pain Scale 1-3) Last Admin: 11/19/23 10:37 Dose: 650 mg Aspirin (Aspirin 81 Mg Tab.Chew) 81 mg PO DAILY [facility] Cyanocobalamin (Cyanocobalamin (Vitamin B-12) 500 Mcg Tablet) 250 mcg PO DAILY [facility] Last Admin: 08/20/23 09:09 Dose: 250 mcg Sodium Chloride (Ns) 1,000 mls @ 80 mls/hr IVCONT .[id number] [facility] Last Admin: 08/20/23 09:09 Dose: 80 mls/hr Loperamide HCl (Loperamide Hcl 2 Mg Capsule) 2 mg PO Q6H PRN PRN Reason: Diarrhea Last Admin: 08/18/23 15:18 Dose: 2 mg Melatonin (Melatonin 3 Mg Tablet) 6 mg PO BEDTIME PRN PRN Reason: Insomnia Metoprolol Succinate (Metoprolol Succinate Er 12.5 Mg Halftab.Er.24h) 37.5 mg PO BID [facility]; Protocol Ondansetron HCl (Ondansetron Hcl 4 Mg/2 Ml Vial) 4 mg IVPUSH Q8H PRN PRN Reason: Nausea and Vomiting Oxycodone HCl (Oxycodone Hcl Immed Release 5 Mg Tablet) 5 mg PO Q4H PRN PRN Reason: mod-sev pain Last Admin: 08/20/23 09:18 Dose: 5 mg Pharmacy Consult (Consult Rx Etoh Phenob Im/Po) 1 each MISCELLANE ONCE PRN; Protocol PRN Reason: Consult order Phenobarbital (Phenobarbital 30 Mg Tablet) 30 mg PO BID [facility]; Protocol Stop: 08/21/23 21:01 Last Admin: 08/20/23 09:09 Dose: 30 mg Phenobarbital (Phenobarbital 30 Mg Tablet) 30 mg PO DAILY [facility]; Protocol Stop: 08/23/23 09:01 Psyllium Hydrophilic Mucilloid (Psyllium Seed 3.7 Gm Packet) 3.7 gm PO DAILY [facility] Last Admin: 08/20/23 09:08 Dose: 3.7 gm Pyridoxine HCl (Pyridoxine Hcl (Vitamin B6) 50 Mg Tablet) 100 mg PO DAILY [facility] Last Admin: 08/20/23 09:09 Dose: 100 mg Sodium Chloride (0.9 % Sodium Chloride Flush 3 Ml Syringe) 3 ml IVFLUSH QSHIFT [facility] Last Admin: 08/20/23 09:09 Dose: 3 ml Thiamine HCl (Thiamine Hcl 100 Mg Tablet) 100 mg PO DAILY [facility] Last Admin: 08/20/23 09:09 Dose: 100 mg Home Medications Medication Instructions Recorded Confirmed Type calcium carbonate 600 mg-vitamin 1 tab PO DAILY 08/03/20 08/17/23 History D3 5 mcg (200 unit) tablet (Calcium 600 + D(3)) cyanocobalamin (vitamin B-12) 250 250 mcg PO DAILY 08/03/20 08/17/23 History mcg lozenges nystatin 100,000 unit/gram topical 1 appl topical DAILY PRN Skin 08/04/22 08/17/23 History powder Irritation Allergies Allergy/AdvReac Type Severity Reaction Status Date / Time No Known Allergies Allergy Verified 06/22/23 13:07 Physical Exam Vital signs: Vital Signs Temp 98.4 F 08/20/23 10:59 Pulse 97 08/20/23 10:59 Resp 18 08/20/23 10:59 BP 97/58 L 08/20/23 10:59 Pulse Ox 97 08/20/23 10:59 O2 Del Method Room Air 08/20/23 10:59 Intake & Output 08/19/23 08/20/23 08/20/23 18:59 06:59 18:59 Intake Total 1455 / 2436.333 981.333 / 2436.333 910.667 / 910.667 Output Total 1000 / 1550 550 / 1550 Balance 455 / 886.333 431.333 / 886.333 910.667 / 910.667 Urine Output (Average ml/kg/hr) 0.15 0.23 0.23 Intake: Intake, Oral Amount 480 / 480 Intake, IV Amount 975 / 1956.333 981.333 / 1956.333 910.667 / 910.667 Sodium Bicarbonate 8.4% 100 meq 975 / 975 In Dextrose 5 % and 0.45 % NaCl 900 ml @ 100 mls/hr IV . Q10H [facility] Rx#:[id number] 0.9 % Sodium Chloride 1,000 ml 981.333 / 981.333 910.667 / 910.667 @ 80 mls/hr IVCONT .[id number] [facility] Rx#:[id number] Output: Output, Urine Amount 200 / 500 300 / 500 Output, Stool Amount 800 / 800 Output, Emesis Amount 250 / 250 Other: Meal Refused No NPO No Breakfast % Eaten 100% Lunch % Eaten 100% Number of Unmeasured Voids 2 1 Urine Bathroom Urine Color Yellow Last Bowel Movement 08/19/23 Stool Ostomy Ostomy Stool Amount Moderate Large Stool Color Brown Brown Stool Consistency Liquid Liquid Weight 109.2 kg - Constitutional Present: no acute distress, obese - Routine HEENT Exam Head: Present: normal inspection Eye: Present: EOMI - Routine Neck Exam Absent: lymphadenopathy - Routine Respiratory Exam Present: CTAB. Absent: accessory muscle use - Routine Cardiovascular Exam Cardiovascular: Present: S1, S2, irregular rhythm - Routine Abdominal Exam Present: nontender - Routine Extremities Exam Comments: Redness and chronic stasis changes of both legs, right worse than left. - Routine Skin Exam Present: intact - Routine Neurological Exam Present: alert, oriented X3 Hem/Onc Consult Result - Labs CBC & Chem 7: 08/20/23 06:51 08/20/23 06:51 Labs: Short CBC 08/20/23 Range/Units 06:51 WBC 5.6 (4.8-10.8) X10*3/uL Hgb 11.0 L (14.0-18.0) g/dl Hct 32.6 L (42.0-52.0) % Plt Count 135 L (160-400) X10*3/uL BMP 08/20/23 06:51 Sodium 141 Potassium 4.1 Chloride 112 H Carbon Dioxide 23 BUN 45 H Creatinine 1.69 H Calcium 8.4 Assessment and Plan Patient Active problem list reviewed?: Yes (1) Hemophilia A Status: Chronic Assessment and plan: 1. This is a 73-year-old male with history of mild hemophilia A who is followed by Dr. Ramos since 2010. He is currently admitted with acute kidney injury and atrial flutter. Acute renal insufficiency improved with fluid resuscitation. He remains in atrial flutter and requires anticoagulation. Although he does not give a history of spontaneous bleeding and thus far has only required perioperative factor 8 and DDAVP support, his factor 8 levels have been below 30%. It was 17% in 2010 and 29% in 2021. As per [place] [employer] guidelines, anticoagulation is to be avoided if factor 8 activity is below 30% in patients with hemophilia A.. Anti- platelet therapy with baby aspirin would be indicated. However this may have to be individualized based on patient's CHADS2 risk assessment and patient's personal history and additional risk factors for bleeding. His APTT is only slightly elevated. Factor 8 activity is pending. Depending on this, further recommendations can be made. I thank you for this consultation. - Time Spent With Patient Time Spent with Patient (in minutes): 25
[2023-08-20 15:16] VITALS: BP 107/55; PULSE 83; RESP 17; TEMP 37.1; O2SAT 99
[2023-08-20 19:19] VITALS: BP 120/55; PULSE 84; RESP 17; TEMP 36.7; O2SAT 99
[2023-08-20] MEDS: Metoprolol Succinate ER 12.5 MG HALFTAB.ER.24H 37.5 MG PO (21:42)
[2023-08-21] VITALS: BP 143/72; PULSE 78; RESP 20; TEMP 36.5; O2SAT 96
[2023-08-21 03:32] VITALS: BP 108/66; PULSE 76; RESP 20; TEMP 36.1; O2SAT 97
[2023-08-21] MEDS: oxyCODONE HCl Immed Release 5 MG TABLET PO (05:34)
[2023-08-21 07:06] VITALS: BP 120/67; PULSE 86; RESP 20; TEMP 36.8; O2SAT 95
[2023-08-21 07:53] LABS: Anion Gap 11 (12-20); Blood Urea Nitrogen 31 mg/dL (9-16); Calcium 8.3 mg/dL (8.4-10.2); Carbon Dioxide 23 mmol/L (22-29); Chloride 111 mmol/L (96-108); Estimated Glomerular Filt Rate 54; Glucose Random 82 mg/dL (60-115); Potassium 4.4 mmol/L (3.3-5.1); Sodium 141 mmol/L (135-145)
[2023-08-21] MEDS: Psyllium seed 3.7 GM PACKET PO (09:32)
[2023-08-21] MEDS: Cyanocobalamin (Vitamin B-12) 500 MCG TABLET 250 MCG PO (09:33)
[2023-08-21] MEDS: Pyridoxine HCl (Vitamin B6) 50 MG TABLET 100 MG PO (09:33)
[2023-08-21] MEDS: Metoprolol Succinate ER 12.5 MG HALFTAB.ER.24H 37.5 MG PO (09:33)
[2023-08-21] MEDS: Aspirin 81 MG TAB.CHEW PO (09:33)
[2023-08-21] MEDS: PHENobarbitaL 30 MG TABLET PO (09:34)
[2023-08-21] MEDS: Thiamine HCL 100 MG TABLET PO (09:34)
[2023-08-21 11:13] VITALS: BP 118/63; PULSE 82; RESP 20; TEMP 37.1; O2SAT 97
--- NOTE | 2023-08-21 13:23 | W.MHC.F2F ---
Service Date Service Date: 08/21/23 Encounter Date of encounter: 08/21/23 Reasons for Services Signs and symptoms assessed: Gross Deconditioning, Impaired Bed Mobility, Impaired Gait Pattern, Impaired Safety ,Impaired Standing Balance, Impaired Transfer Ability,Muscle Weakness Reason for physical therapy: home safety and mobility, therapeutic exercises, gait/transfer training, assess need for DME, ADL training and energy conservation MD Overseeing Care: Jennifer Parikh Homebound: Leaving the home is medically contraindicated at this time without the asist of a device and/or another person due th the listed conditions above and below. Reason homebound: unsteady gait / fall risk and weakness related to hospital stay Homebound supporting statement: Bed Mobility, Transfer Training,Gait Training,Stair Training, Therapeutic Activities, Therapeutic Exercise,Neuro Re-education, Patient Education, Safety,Balance Certification: Based on the above findings, I certify that this patient is confined to the home and needs intermittent halfway care, physical therapy and/or speech therapy, or continues to need occupational therapy. The patient is under my care, and I have initiated the establishment of the plan of care. The patient will be followed by a physician who will periodically review the plan of care. Time Spent With Patient Time: Total time managing care of this patient today ____ minutes.
--- NOTE | 2023-08-21 13:34 | P.DS_ITS ---
DS: Providers Provider Date of Service: 08/21/23 Date of admission: 08/17/23 17:06 Date of discharge: 08/21/23 Primary care physician: Jennifer Parikh MD Consults: 08/17/23 14:53 Consult to Nephrology Stat Consulting Provider: [facility] [place] [facility] Reason for consultation: acute renal failure new onset Has provider been notified: Yes 08/17/23 17:32 Consult to General Surgery Routine Consulting Provider: [facility] [place] [facility] Reason for consultation: Acute renal failure in pt with ileostomy and large parastomal hernia 08/18/23 01:43 Consult to Wound Care Routine Reason for consultation: bruised areas to coccyx Has provider been notified: Yes 08/18/23 07:56 Addiction Medicine Routine Consulting Provider: Addiction Covering Reason for consultation: etoh 08/18/23 10:40 Consult to Cardiology Routine Consulting Provider: [facility] [place] [facility] Reason for consultation: atral flutter 08/19/23 10:15 Consult to Hematology / Oncology Routine Consulting Provider: [facility] [place] Oncology/Hematology Reason for consultation: Hemophilia A with indication for Eliquis [AFib[ 08/19/23 10:17 Consult to Gastroenterology Routine Consulting Provider: Rowdy Camara Reason for consultation: Crohn's with ileostomy from 1970, excess output recently DS: Diagnosis Discharge Diagnosis (1) Hemophilia A: Status: Chronic (2) Atrial flutter with rapid ventricular response: Status: Acute (3) Metabolic acidosis: Status: Acute (4) Hyperkalemia: Status: Acute (5) Hyponatremia: Status: Acute (6) Hypotension: Status: Acute (7) Acidosis, lactic: Status: Acute (8) Acute renal failure: Status: Acute (9) Ileostomy in place: Status: Acute DS: Summary Hospital Course Hospital Course: from admission H+P by hospitalist MIGUEL ÁNGEL Ramirez, 08/17/23: Pt is a 73-year-old male with a PMH significant for?PVD, hx of SVT, hemophilia A, restrictive lung disease, BPH, atrial ectopy, and 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 Patient also reports falling yesterday while in the kitchen. Was standing in front of the sink when he felt dizzy and lightheaded fell back into the refrigerator. Denies any trauma, injury, head strike. Patient states he has had a reduced appetite the past 5 days, however has been drinking normally. Denies any diarrhea or vomiting. No fever, chills, abdominal pain. However, patient does point out that the output in his ileostomy has changed in the past 6 months. Patient has had his ileostomy since 1970. Says that used to take 1.5 hours after eating before he would have any output in his ostomy bag, but before the past few months he reports he has liquidy output in his ostomy bag 5-10 minutes after eating. Reports more frequent emptying his ostomy depending on how much he eats. Patient states he has had no difficulties going to the bathroom and reports still urinating normally with a [id number]-yellow-colored output. Also notes back pain for the past couple of weeks that starts just below his shoulders to his lower back. Denies any trauma to the area. Patient denies starting any new medications recently, the reports he stopped taking lisinopril a few months ago. No chest pain/pressure, palpitations. Denies shortness of breath. In the ED pt was afebrile but tachycardic to 108, and initially hypotensive as low as 77/35. Labs were significant for H&H of 12.9/37.6, sodium 130, potassium 5.2, carbon dioxide 15, BUN 98, creatinine 9.73, lactic acid 2.4 with repeat 1.1, UA negative for UTI. CXR showed apparent stable chronic volume loss right hemo thorax with elevation of right hemo diaphragm. CT?abdomen and pelvis found no acute abnormalities, but did show nonobstructive bilateral renal calculi, hepatic steatosis, cholelithiasis with no evidence of acute cholecystitis, prostatomegaly and chronic compression deformities of T10 and T12. EKG demonstrated atrial variable AV nonspecific ST abnormality. Pt was treated with IVF, ceftriaxone, lidocaine, and oxycodone. Pt will be admitted to the hospital for treatment and further evaluation of acute renal Mr Rosado is a 73yo M with hx SVT/atrial ectopy, hemophilia A, ileostomy due to Crohn's disease, and HTN presenting with lightheadedness, dizziness, malaise x 1 week. He admitted to the hospitalist service for LACY and hypotension and developed rapid atrial flutter. Hospital course by problem: hypotension LACY, prerenal acute metabolic acidosis lactic acidosis hyponatremia hyperkalemia - Nephrology consulted. All of these abnormalities resolved with IV bicarbonate repletion. He was on lisinopril several weeks ago and should not take this medication anymore. Serum creatinine was 1.31 on discharge. Repeat BMP in 1 week and follow up with [facility] [place] Nephrology. new-onset atrial flutter hemophilia A - TTE 08/18/23: The left ventricular systolic function is normal. The visually estimated ejection fraction is between 65-70%. - No obvious valvular pathology seen on this study. - Cardiology was consulted. Rate control achieved with increasing metoprolol succinate to 37.5 mg daily. Hematology consulted regarding anticoagulation in the face of hemophilia; for now, will stick to ASA 81 mg daily; factor 8 level sent and pending. He should follow up with Cardiology in 2 weeks and Hematology in 1 week. ileostomy - Question of excess output which may have contributed to his dehydration. GI consulted; recommend fiber, prn loperamide, and trial of lactose-free diet. Cdiff + GI panel negative. EtOH withdrawal - Given phenobarbital taper. Counseled sobriety. Denied alcohol use disorder. He was discharged home with VNA services. Time Attestation Total time managing care of this patient today: 45 mintues. Discharge coordination time: Greater than 30 minutes Quality: Safe Use of Opioids Does Pt have an Active Cancer Diagnosis on the Problem List?: No Quality: Stroke Does the patient have a stroke diagnosis?: No Physical Exam Vital Signs: Vital Signs: Last Vital Signs Temp 98.7 F 08/21/23 11:13 Pulse 82 08/21/23 11:13 Resp 20 08/21/23 11:13 BP 118/63 08/21/23 11:13 Pulse Ox 97 08/21/23 11:13 O2 Del Method Room Air 08/21/23 11:13 BMI result Body Mass Index 31.8 Gen: in no acute distress HEENT: sclera anicteric, moist mucus membranes Neck: supple Lungs: clear to auscultation bilaterally Heart: irregular, no murmurs Abd: soft, non-tender, non-distended, ileostomy with liquid output Ext: no edema Skin: warm/well-perfused Neuro: alert and oriented x3, no focal findings Psych: appropriate affect DS: Data Data Completed and Pending Completed studies during hospitalization [Text1]: Laboratory Results WBC 5.6 X10*3/uL (4.8-10.8) 08/20/23 06:51 RBC 3.30 X10*6/uL (4.60-5.80) L 08/20/23 06:51 Hgb 11.0 g/dl (14.0-18.0) L 08/20/23 06:51 Hct 32.6 % (42.0-52.0) L 08/20/23 06:51 MCV 98.8 fL (80.0-98.0) H 08/20/23 06:51 MCH 33.3 pg (27.0-33.0) H 08/20/23 06:51 MCHC 33.7 g/dl (31.0-36.0) 08/20/23 06:51 RDW 13.1 % (11.0-16.0) 08/20/23 06:51 Plt Count 135 X10*3/uL (160-400) L 08/20/23 06:51 MPV 9.8 fL (9.4-12.4) 08/20/23 06:51 Immature Gran % (Auto) 0.8 % (0.0-0.4) H 08/17/23 11:08 Neut % (Auto) 71.0 % (45-73) 08/17/23 11:08 Lymph % (Auto) 17.8 % (20-40) L 08/17/23 11:08 Pickett % (Auto) 9.3 % (2-11) 08/17/23 11:08 Eos % (Auto) 0.8 % (0-4) 08/17/23 11:08 Baso % (Auto) 0.3 % (0-2) 08/17/23 11:08 Lymph # (Auto) 1.5 X10*3/uL (1.2-4.9) 08/17/23 11:08 Pickett # (Auto) 0.8 X10*3/uL (0.1-1.2) 08/17/23 11:08 Eos # (Auto) 0.1 X10*3/uL (0.0-0.4) 08/17/23 11:08 Baso # (Auto) 0.0 X10*3/uL (0.0-0.2) 08/17/23 11:08 Abs Immat Gran (auto) 0.07 X10*3/uL (0.00-0.03) H 08/17/23 11:08 Absolute Neuts (auto) 6.1 x10*3/uL (2.0-8.3) 08/17/23 11:08 Absolute Nucleated RBC 0.000 X10*3/uL (0.0-0.012) 08/20/23 06:51 Nucleated RBC % (auto) 0.0 /100WBC (0.0-0.2) 08/20/23 06:51 Hold Purple Top SEE NOTE 08/21/23 06:18 PT 11.0 SEC (11.1-13.3) L 08/17/23 11:08 INR 0.9 (0.9-1.1) 08/17/23 11:08 APTT 39.0 SEC (26.0-36.4) H 08/19/23 11:27 D-Dimer High Sensitivty 277 NG/ML 08/17/23 11:08 Sodium 141 mmol/L (135-145) 08/21/23 06:18 Potassium 4.4 mmol/L (3.3-5.1) 08/21/23 06:18 Chloride 111 mmol/L (96-108) H 08/21/23 06:18 Carbon Dioxide 23 mmol/L (22-29) 08/21/23 06:18 Anion Gap 11 (12-20) L 08/21/23 06:18 BUN 31 mg/dL (9-16) H 08/21/23 06:18 Creatinine 1.31 mg/dL (0.5-1.4) 08/21/23 06:18 Estim Creat Clear Calc 66.0 08/21/23 06:18 Estimated GFR 54 08/21/23 06:18 Random Glucose 82 mg/dL (60-115) 08/21/23 06:18 Lactic Acid 2.4 mmol/L (0.5-2.0) H* 08/17/23 11:08 Lactic Acid F/U @ 2Hr 1.1 mmol/L (0.5-2.0) 08/17/23 14:21 Calcium 8.3 mg/dL (8.4-10.2) L 08/21/23 06:18 Magnesium 2.1 mg/dL (1.6-2.6) 08/17/23 11:08 Iron 86 mcg/dL (45-160) 08/20/23 06:51 TIBC 207 mcg/dL (228-428) L 08/20/23 06:51 % Saturation 42 % (15-50) 08/20/23 06:51 Unsat Iron Binding 121 ug/dL 08/20/23 06:51 Ferritin 451 ng/mL (20-250) H 08/20/23 06:51 Total Bilirubin 0.9 mg/dL (0.0-1.0) 08/17/23 11:08 Direct Bilirubin 0.4 mg/dL (0.0-0.5) 08/17/23 11:08 AST 10 U/L (5-37) 08/17/23 11:08 ALT 14 U/L (0-40) 08/17/23 11:08 Alkaline Phosphatase 50 U/L (39-117) 08/17/23 11:08 Total Creatine Kinase 188 U/L (38-174) H 08/17/23 11:08 Troponin I High Sens 14.0 ng/L (<3.5-35.0) 08/17/23 11:08 B-Natriuretic Peptide 26 pg/mL (<100) 08/17/23 11:08 Total Protein 7.9 g/dL (6.5-8.0) 08/17/23 11:08 Albumin 4.4 g/dL (3.5-5.0) 08/17/23 11:08 Lipase 104 U/L (8-78) H 08/17/23 11:08 Vitamin B12 859 pg/mL (200-900) 08/20/23 06:51 Folate 5.6 ng/mL (> or = 4.0) 08/20/23 06:51 Procalcitonin 0.13 ng/mL 08/17/23 11:08 Urine Color Yellow 08/17/23 12:53 Urine Appearance Cloudy 08/17/23 12:53 Urine pH 5.0 (5.0-9.0) 08/17/23 12:53 Ur Specific Carmen 1.015 (1.005-1.025) 08/17/23 12:53 Urine Protein 30 (1+) mg/dL (Neg-Trace) H 08/17/23 12:53 Urine Glucose (UA) Negative mg/dL (Negative) 08/17/23 12:53 Urine Ketones Trace mg/dL (Negative) 08/17/23 12:53 Urine Blood Small (1+) (Negative) H 08/17/23 12:53 Urine Nitrite Negative (Negative) 08/17/23 12:53 Ur Leukocyte Esterase Trace (Negative) H 08/17/23 12:53 Urine RBC 3-5 /HPF (0-2) H 08/17/23 12:53 Urine WBC 0-5 /HPF (0-5) 08/17/23 12:53 Ur Squamous Epith Cells 0-2 /HPF (0-2) 08/17/23 12:53 Urine Bacteria None Seen (None Seen) 08/17/23 12:53 Hyaline Casts 6-10 /LPF (0-2) 08/17/23 12:53 U Random Total Protein 35 mg/dL (<12) H 08/17/23 18:56 Ur Random Sodium < 20.0 mmol/L 08/17/23 18:56 Urine Creatinine 368.24 mg/dL 08/17/23 18:56 Stl C. cayetanensis PCR Not Detected (Not Detect.) 08/17/23 18:56 Stool Rotavirus A PCR Not Detected (Not Detect.) 08/17/23 18:56 Stl Adenov F 40/41 PCR Not Detected (Not Detect.) 08/17/23 18:56 Stool Astrovirus (PCR) Not Detected (Not Detect.) 08/17/23 18:56 Stool Campylobacter PCR Not Detected (Not Detect.) 08/17/23 18:56 Stool Cryptosporidium PCR Not Detected (Not Detect.) 08/17/23 18:56 Stl Sh Tox Pr E STEC PCR Not Detected (Not Detect.) 08/17/23 18:56 Stool E coli O157 PCR Not applicable (Not Detect.) 08/17/23 18:56 Stl Enterotoxigenic E PCR Not Detected (Not Detect.) 08/17/23 18:56 Stool EPEC (PCR) Not Detected (Not Detect.) 08/17/23 18:56 Stool EAEC (PCR) Not Detected (Not Detect.) 08/17/23 18:56 Stl E. histolytica PCR Not Detected (Not Detect.) 08/17/23 18:56 Stool Giardia Lamblia PCR Not Detected (Not Detect.) 08/17/23 18:56 Stl P. shigelloides PCR Not Detected (Not Detect.) 08/17/23 18:56 Stool Salmonella PCR Not Detected (Not Detect.) 08/17/23 18:56 Stool Sapovirus (PCR) Not Detected (Not Detect.) 08/17/23 18:56 Stl Shigella/EIEC PCR Not Detected (Not Detect.) 08/17/23 18:56 St Y.enterocolitica PCR Not Detected (Not Detect.) 08/17/23 18:56 Stool Vibrio (PCR) Not Detected (Not Detect.) 08/17/23 18:56 Stl Vibrio cholerae PCR Not Detected (Not Detect.) 08/17/23 18:56 Stl Norovirus GI/GII PCR Not Detected (Not Detect.) 08/17/23 18:56 C. difficile Tox B Gene NEGATIVE (Negative) 08/17/23 18:56 COVID-19 (RAJNI) Negative (Negative) 08/17/23 11:25 COVID-19 Clin Com See Note 08/17/23 11:25 Impressions Chest X-Ray 08/17/23 11:30 IMPRESSION: Apparent stable chronic changes noted. Recommend follow-up PA lateral, preferably nonrotated. Abdomen/Pelvis CT 08/17/23 12:38 IMPRESSION: 1. Nonobstructive bilateral renal calculi. 2. Hepatic steatosis. 3. Cholelithiasis but no evidence of acute cholecystitis. 4. Status post colectomy with a right lower quadrant ileostomy and large parastomal hernia containing omental fat and nonobstructed loops of small bowel, not significantly changed compared to 09/25/2019. 5. Prostatomegaly. 6. Chronic compression deformities at T10 and T12, unchanged compared to 09/25/2019. Discharge Plan Discharge Anticipated Discharge Date/Time: 08/21/23 14:25 Patient Disposition: Home Health Service Discharge Diagnosis: acute kidney injury atrial flutter ileostomy in place alcohol withdrawal Referrals: Nancie FREDERICK [Outside] - 1 Week Ernst Rivera MD [Physician] - 2 Weeks Ce Ramos MD [Physician] - 1 Week Po,Jennifer Early MD [Primary Care Provider] - 1 Week Alex Dueñas MD [Physician] - 2 Weeks Discharge Medications: New metoprolol succinate 25 mg tablet extended release 24 hr 37.5 mg PO BID Qty: 90 0RF aspirin 81 mg Tablet,Chewable 81 mg PO DAILY Qty: 30 0RF loperamide 2 mg Capsule 2 mg PO Q6H PRN (Reason: Diarrhea) Qty: 30 0RF Hydrocil Instant Packet 1 packet PO DAILY Qty: 30 0RF thiamine mononitrate (vit B1) 100 mg Tablet 100 mg PO DAILY Qty: 30 0RF Continued simvastatin 5 mg tablet 5 mg PO BEDTIME Qty: 30 4RF nystatin 100,000 unit/gram powder 1 appl topical DAILY PRN (Reason: Skin Irritation) Rx Instructions: apply to ileostomy site topical 2 times a day; calcium carbonate-vitamin D3 [Calcium 600 + D(3)] 600 mg(1,500mg) -200 unit tablet 1 tab PO DAILY cyanocobalamin (vitamin B-12) 250 mcg lozenge 250 mcg PO DAILY pyridoxine (vitamin B6) 100 mg tablet 100 mg PO DAILY 90 Days Qty: 90 3RF potassium citrate 10 mEq (1,080 mg) tablet extended release 20 meq PO BID 90 Days Qty: 360 3RF Discontinued metoprolol succinate 25 mg tablet extended release 24 hr 25 mg PO DAILY Qty: 90 2RF Discharge Orders: Discharge Order (Routine); Ordered 08/21/23 Ordered By: Bette Hirsch Diet: lactose free Activity on Discharge: As tolerated Stand Alone Forms: Patient Portal Discharge page Other Ambulatory Orders: Basic Metabolic Panel (Routine) Timeframe: 1 Week Facility: [facility] - Location: Laboratory Ordered By: Bette Hirsch Complete Blood Count no Diff (Routine) Timeframe: 1 Week Facility: [facility] - Location: Laboratory Ordered By: Bette Hirsch Care Plan Goals: normal kidney health safe stroke prevention without bleeding relief of excess output from ileostomy sobriety Health Concerns: acute kidney injury atrial flutter ileostomy in place alcohol withdrawal Plan of Treatment: don't take lisinopril increase metoprolol succinate from 25 mg to 37.5 mg twice daily start aspirin 81 mg daily check labs in 1 week: CBC, BMP follow up in 1 week with [address] Worker Hel[facility] [address] Ramos follow up in 2 weeks with Compressed Gases Tester Dr Dueñas and Cuff Cutter Dr Rivera avoid alcohol take psyllium [Metamucil] daily; trial of lactose-free diet Please follow up with your primary care doctor within 1 week. Return to the hospital if you experience recurrent or worsening symptoms. Assessment: See Discharge Summary.
--- NOTE | 2023-08-21 13:35 | MHC.CM.PN ---
Pt has been medically cleared for DC, he will go home via private transport, and will have home care services from [facility].
[2023-08-22 20:03] LABS: Factor VIII Activity 24 % normal (50-180)
== END 2023-08-21 14:37 | disposition home health service (06) | DRG 201 ==
LOC: HO.ED 14:53 → HO.EDOVER 17:40 → HO.IMC 21:30
PROVIDERS: Internal Medicine; Internal Medicine Hypertension Specialist; Admitting Provider Student in an Organized Health Care Education/Training Program; Emergency Provider Emergency Medicine; PCP Internal Medicine; Visit Provider Family Medicine
DX: I48.92 Unspecified atrial flutter (principal); N17.9 Acute kidney failure, unspecified; E87.21 Acute metabolic acidosis; D66 Hereditary factor VIII deficiency; K50.90 Crohn's disease, unspecified, without complications; I95.9 Hypotension, unspecified; E87.5 Hyperkalemia; E87.1 Hypo-osmolality and hyponatremia; E86.0 Dehydration; F10.930 Alcohol use, unspecified with withdrawal, uncomplicated; K43.5 Parastomal hernia without obstruction or gangrene; M54.6 Pain in thoracic spine; E53.8 Deficiency of other specified B group vitamins; E78.5 Hyperlipidemia, unspecified; Z93.2 Ileostomy status; Z20.822 Contact with and (suspected) exposure to COVID-19; Z79.899 Other long term (current) drug therapy
CPT/HCPCS: 36415; 71045; 74176; 80048; 80076; 81001; 82550; 82570; 82607; 82728; 82746; 83540; 83605; 83690; 83735; 83880; 84145; 84156; 84300; 84484; 85025; 85027; 85240; 85379; 85610; 85730; 87040; 87493; 87507; 87635; 93005; 93306; 97162; 99285; C1758; J0696; J1644; P9047

== ENCOUNTER 2023-08-17 17:06 | Outpatient (BNV) | payer BC, SELFPAY | END 2023-08-18 07:00 | PROVIDERS: Admitting Provider Student in an Organized Health Care Education/Training Program; Emergency Provider Emergency Medicine; PCP Internal Medicine; Visit Provider Internal Medicine | DX: I48.91 Unspecified atrial fibrillation (principal) | CPT/HCPCS: 93306 ==

== ENCOUNTER → 2023-08-17 17:06 | Outpatient (BNV) | payer BC, SELFPAY | PROVIDERS: Admitting Provider Student in an Organized Health Care Education/Training Program; Emergency Provider Emergency Medicine; PCP Internal Medicine; Visit Provider Family Medicine | DX: D66 Hereditary factor VIII deficiency (principal); N17.9 Acute kidney failure, unspecified; I48.92 Unspecified atrial flutter; Z93.2 Ileostomy status; E87.20 Acidosis, unspecified; E87.5 Hyperkalemia; E87.1 Hypo-osmolality and hyponatremia; I95.9 Hypotension, unspecified | CPT/HCPCS: 99223; 99232; 99239; 99499; G0180 ==

== ENCOUNTER → 2023-08-17 17:06 | Outpatient (BNV) | payer BC, SELFPAY | PROVIDERS: Admitting Provider Student in an Organized Health Care Education/Training Program; Emergency Provider Emergency Medicine; PCP Internal Medicine; Visit Provider Internal Medicine | DX: N17.9 Acute kidney failure, unspecified (principal); D66 Hereditary factor VIII deficiency; I48.92 Unspecified atrial flutter | CPT/HCPCS: 99222 ==

== ENCOUNTER → 2023-08-17 17:06 | Outpatient (BNV) | payer BC, SELFPAY | PROVIDERS: Admitting Provider Student in an Organized Health Care Education/Training Program; Emergency Provider Emergency Medicine; PCP Internal Medicine; Visit Provider Internal Medicine Hypertension Specialist | DX: N17.9 Acute kidney failure, unspecified (principal); N20.0 Calculus of kidney; E87.1 Hypo-osmolality and hyponatremia; E87.5 Hyperkalemia; E87.21 Acute metabolic acidosis | CPT/HCPCS: 99232; 99253 ==

== ENCOUNTER → 2023-08-17 17:06 | Outpatient (BNV) | payer BC, SELFPAY | PROVIDERS: Admitting Provider Student in an Organized Health Care Education/Training Program; Emergency Provider Emergency Medicine; PCP Internal Medicine; Visit Provider Physician Assistant Surgical | DX: N17.9 Acute kidney failure, unspecified (principal); E87.20 Acidosis, unspecified; Z93.2 Ileostomy status; K43.5 Parastomal hernia without obstruction or gangrene | CPT/HCPCS: 99222 ==

== ENCOUNTER → 2023-08-17 17:06 | Outpatient (BNV) | payer BC, SELFPAY | PROVIDERS: Admitting Provider Student in an Organized Health Care Education/Training Program; Emergency Provider Emergency Medicine; PCP Internal Medicine; Visit Provider Internal Medicine | DX: I48.92 Unspecified atrial flutter (principal); N17.9 Acute kidney failure, unspecified; D66 Hereditary factor VIII deficiency | CPT/HCPCS: 99223; 99233 ==

== ENCOUNTER 2023-08-31 10:57 | Outpatient (REF) | payer BC, SELFPAY ==
[2023-08-31 11:18] LABS: MANUAL DIFF FLAG NO
[2023-08-31 12:15] LABS: Basophils Percent Auto 0.4 % (0-2); Eosinophils Absolute Auto 0.1 X10*3/uL (0.0-0.4); Hematocrit 35.6 % (42.0-52.0); Hemoglobin 11.8 g/dl (14.0-18.0); Imm Gran Abs Auto 0.08 X10*3/uL (0.00-0.03); Imm Gran Pct Auto 1.1 % (0.0-0.4); Lymphocytes Absolute Auto 1.4 X10*3/uL (1.2-4.9); Lymphocytes Percent Auto 20.2 % (20-40); Mean Corpuscular HGB Conc 33.1 g/dl (31.0-36.0); Mean Corpuscular Hemoglobin 32.3 pg (27.0-33.0); Mean Corpuscular Volume 97.5 fL (80.0-98.0); Mean Platelet Volume 9.8 fL (9.4-12.4); Monocytes Absolute Auto 0.7 X10*3/uL (0.1-1.2); Monocytes Percent Auto 9.6 % (2-11); Neutrophils Absolute Auto 4.7 x10*3/uL (2.0-8.3); Neutrophils Percent Auto 66.7 % (45-73); Platelet Count 203 X10*3/uL (160-400); Red Blood Count 3.65 X10*6/uL (4.60-5.80); Red Cell Distribution Width 13.3 % (11.0-16.0); White Blood Count 7.1 X10*3/uL (4.8-10.8)
[2023-08-31 13:07] LABS: Alanine Aminotransferase 38 U/L (0-40); Albumin Level 4.2 g/dL (3.5-5.0); Alkaline Phosphatase 71 U/L (39-117); Anion Gap 13 (12-20); Aspartate Amino Transferase 41 U/L (5-37); Bilirubin Total 0.7 mg/dL (0.0-1.0); Blood Urea Nitrogen 18 mg/dL (9-16); Calcium 9.8 mg/dL (8.4-10.2); Carbon Dioxide 24 mmol/L (22-29); Chloride 103 mmol/L (96-108); Estimated Glomerular Filt Rate 57; Glucose Random 84 mg/dL (60-115); Magnesium 1.8 mg/dL (1.6-2.6); Sodium 135 mmol/L (135-145); Total Protein 7.6 g/dL (6.5-8.0)
[2023-08-31 13:09] LABS: Free T4 (Free Thyroxine) 0.96 ng/dL (0.71-1.85); Thyroid Stimulating Hormone 1.73 uIU/mL (0.32-4.0)
== END 2023-08-31 10:58 | disposition home or self-care (01) ==
LOC: HO.LAB 10:57
PROVIDERS: PCP Internal Medicine; Visit Provider Family Medicine
DX: N20.0 Calculus of kidney (principal); N17.9 Acute kidney failure, unspecified; I10 Essential (primary) hypertension
CPT/HCPCS: 36415; 80053; 83735; 84439; 84443; 85025

== ENCOUNTER 2023-08-31 11:28 | Outpatient (AMB) | payer BC, SELFPAY ==
--- NOTE | 2023-08-31 11:30 | HO.NEPHOV ---
HPI HPI Comments History of Present Illness Details 73-year-old male with a?PVD, hx of SVT, hemophilia A, restrictive lung disease, BPH, atrial ectopy, and ileostomy in the setting of Crohn's History of multiple renal stones. Status post stent placement Essentially normal renal function at baseline. He was admitted few weeks ago with LACY. Creatinine peaked at 9.7 mg/dL. Prior to the admission he had significant diarrhea and p.o. intake was poor. He has a history of nephrolithiasis He has multiple renal stones. CT scan at the time of admission showed multiple multiple calculi without any obstruction. During the hospital course renal functions improved with IV hydration. He did not require hemodialysis. He also had severe acidosis at time admission which promptly resolved. [facility] Medical History Back pain Bilateral kidney stones 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 Lymphangitis Edema of lower extremity Parastomal hernia Obesity (BMI 30-39.9) Dyspnea on exertion Nocturnal hypoxemia Restrictive lung disease Essential hypertension Atrial arrhythmia Hemophilia Loja cyst Renal stones History of cataract BPH (benign prostatic hyperplasia) Gout Crohn's disease Peripheral vascular disease Thrombocytopenia History of hepatitis C Cholelithiasis Osteopenia Surgical History S/P colectomy Status post ablation of incompetent vein using laser (01/13/23) H/O tooth extraction History of appendectomy History of urethral stent History of cataract surgery H/O wrist surgery Family History Father Prostate cancer Mother Diabetes Maternal Grandfather Factor VIII deficiency hemophilia Social History Household Members: Spouse Household Members Other:: 1 Housing: House Are you a primary director of critical care to a significant other at home: No Do you presently have visiting nurse or other home services: No Alcohol intake: current Alcohol intake frequency: 3 or more drinks per day Alcohol type: beer Patient Tobacco Use Status: Never used Tobacco e-Cigarette/Vaping Use: Never Used Second Hand Smoke Exposure: No service: No Current occupational status: retired Cognitive needs: No Hearing needs: No Vision needs: Yes Vital Signs 08/31/23 11:32 Height 6 ft 1 in Weight 238 lb BMI 31.4 BP 118/64 Blood Pressure Location Lt brachial Position Sitting Pulse 106 H Pulse Source Pulse Oximeter Pulse Oximetry (%) 99 Oxygen Delivery Method Room Air Physical Exam Vital Signs: Last Vital Signs Pulse 106 H 08/31/23 11:32 BP 118/64 08/31/23 11:32 Pulse Ox 99 08/31/23 11:32 Oxygen Delivery Method Room Air 08/31/23 11:32 BMI result Body Mass Index 31.4 Const General: comfortable; No acute distress Orientation/consciousness: patient oriented x3 Eyes General: appearance normal, both eyes and all related structures Visual English: normal visual english by confrontation Neck Neck: Yes supple and Yes no JVD Resp Effort & Inspection: normal respiratory effort and respiratory effort not decreased Auscultation: rhonchi Cardio Palpation: no palpable S3 and no palpable S4 Heart sounds: no rubs GI Inspection: Yes normal to inspection Palpation (GI): Soft to palpation Percussion: Yes normal to percussion Auscultation: normal bowel sounds General: Yes no CVA tenderness Back/Spine/Pelvis Back: no CVA tenderness Skin General skin exam: no petechiae and no purpura Neuro General: patient oriented x3 and no focal motor deficits Extrem General: No clubbing and No edema Results Reviewed Results Reviewed: CT from 08/17/23 : CT/CT abdomen pelvis wo IV con IMPRESSION: 1. Nonobstructive bilateral renal calculi. 2. Hepatic steatosis. 3. Cholelithiasis but no evidence of acute cholecystitis. 4. Status post colectomy with a right lower quadrant ileostomy and large parastomal hernia containing omental fat and nonobstructed loops of small bowel, not significantly changed compared to 09/25/2019. 5. Prostatomegaly. 6. 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 He is scheduled for another CT scan in the next week or so. He will follow-up with Urology. The meantime increase him to stay on low-sodium diet. He should increase his fluid intake to maintain urine output of 2 L per 24 hours (2) LACY (acute kidney injury): Code(s): N17.9 - Acute kidney failure, unspecified Plan: LACY due to hypoperfusion from severe dehydration. Dehydration occurred due to diarrhea and setting of Crohn's disease and poor p.o. intake. Renal function is improving. No signs or symptoms of uremia. Will follow today's labs. Continue to avoid nephrotoxic agents. Plan History of hyperkalemia in setting of LACY and continues Efe inhibitors. He was on potassium citrate. Hyperkalemia resolved with medical management. He is still on potassium citrate. We will follow serum potassium levels. Hyponatremia due to decreased free water clearance also resolved at the time of admission. Will recheck serum sodium. Orders: Orders Blood Urea Nitrogen 4 Months N17.9 - Acute kidney failure, unspecified, N20.0 - Calculus of kidney Electrolytes 4 Months N17.9 - Acute kidney failure, unspecified, N20.0 - Calculus of kidney Creatinine 4 Months N17.9 - Acute kidney failure, unspecified, N20.0 - Calculus of kidney Calcium 4 Months N17.9 - Acute kidney failure, unspecified, N20.0 - Calculus of kidney Coding Level of Care Code Est Pt Level 4 (74928) Diagnoses Renal stones N20.0 LACY (acute kidney injury) N17.9
[2023-08-31 11:32] VITALS: BP 118/64; PULSE 106; O2SAT 99; BMI 31.4
== END 2023-08-31 11:50 | disposition home or self-care (01) ==
PROVIDERS: PCP Internal Medicine; Visit Provider Internal Medicine Hypertension Specialist
DX: N20.0 Calculus of kidney (principal); N17.9 Acute kidney failure, unspecified
CPT/HCPCS: 99214

== ENCOUNTER 2023-09-04 07:54 | Outpatient (REF) | payer BC, SELFPAY ==
--- NOTE | ~2023-09-04 | CT_ITS ---
EXAMINATION: CT ABDOMEN AND PELVIS WITHOUT CONTRAST CLINICAL INFORMATION: Renal calculus. COMPARISON: CT abdomen and pelvis 08/17/2023. TECHNIQUE: Multidetector volumetric imaging was performed from the superior aspect of the liver through the pubic symphysis. Sagittal and coronal reformatted images were obtained on the technologist's workstation. This CT examination was performed using dose optimization techniques as appropriate, variously including the following: *Automated exposure control *Adjustment of mA and/or kV according to patient size (this includes techniques or standardized protocols for targeted exams where dose is matched to indication/reason for exam; i.e. extremities or head) *Use of iterative reconstruction technique DLP: 629 mGy-cm FINDINGS: LUNG BASES: The visualized lung bases are unremarkable. LIVER, GALLBLADDER, AND BILIARY TREE: The liver is normal in size, shape, and attenuation. No focal hepatic lesion or biliary ductal dilatation is present. Cholelithiasis without evidence of cholecystitis. PANCREAS: No discrete mass. No ductal dilatation. SPLEEN: Unremarkable. ADRENAL GLANDS: No adrenal mass. KIDNEYS AND URETERS: 5 nonobstructing calculi are seen in the right kidney without significant change from prior. 2 calculi are seen in the left kidney unchanged from prior. Cyst with thin calcified septation in the left kidney measures 2.6 cm, unchanged. No hydroureteronephrosis. Focally dilated segment of distal left ureter has resolved. BLADDER: No discrete bladder calculus. GASTROINTESTINAL TRACT: Colectomy. The small bowel is normal in caliber. Large wide necked parastomal hernia containing small bowel and its associated mesentery without evidence of obstruction. ABDOMINAL WALL: Large right lower quadrant parastomal hernia. LYMPH NODES: No adenopathy. VASCULAR: No aortic aneurysm. Mild aortoiliac atherosclerosis. PELVIC VISCERA: Prostate is enlarged measuring 5.1 cm. OSSEOUS STRUCTURES: Stable compression fractures at T10 and T12. CT/CT abdomen pelvis wo IV con IMPRESSION: No change in bilateral renal calculi. The focal dilatation of the distal left ureter on the prior study has resolved. Fleischner guidelines were followed.
== END 2023-09-04 07:55 | disposition home or self-care (01) ==
LOC: HO.CT 07:54
PROVIDERS: PCP Internal Medicine; Visit Provider Urology
DX: N20.0 Calculus of kidney (principal)
CPT/HCPCS: 74176

== ENCOUNTER → 2023-09-14 09:27 | Outpatient (REF) | payer BC, SELFPAY ==
--- NOTE | 2023-09-14 09:30 | HM_ITS ---
Conclusion: 1. Patient was monitored for total period of 2 days and 23 hours 2. Baseline was atrial fibrillation with average heart of 94 beats per minute with borderline rate control 3. No significant pauses noted 4. Occasional PVCs noted 5. No patient reported events MTDD
== END ==
LOC: HO.CARD 09:27
PROVIDERS: PCP Internal Medicine; Visit Provider Internal Medicine
DX: I48.92 Unspecified atrial flutter (principal)
CPT/HCPCS: 93242

== ENCOUNTER → 2023-09-14 09:30 | Outpatient (BNV) | payer BC, SELFPAY | PROVIDERS: PCP Internal Medicine; Visit Provider Internal Medicine Cardiovascular Disease | DX: I48.91 Unspecified atrial fibrillation (principal) | CPT/HCPCS: 93244 ==

== ENCOUNTER 2023-09-26 14:57 | Outpatient (AMB) | payer BC, SELFPAY ==
--- NOTE | 2023-09-26 15:06 | A.OFFVIS_ITS ---
Intake Vital Signs 09/26/23 15:08 Height 6 ft 1 in Weight 242 lb 8.136 oz BMI 32.0 BP 126/72 Blood Pressure Location Lt brachial Position Sitting Pulse 112 H Intake Visit Reasons: follow up holter Intake Note: follow up Double Surface Operator Required: No Accompanied by: Self / Same As Patient Allergies No Known Allergies Allergy (Verified 08/31/23 11:34) Medication List - Last Reconciled 09/26/23 by Alex Dueñas MD aspirin 81 mg PO DAILY calcium carbonate-vitamin D3 600 mg-5 mcg (200 unit) (Calcium 600 + D(3)) 1 tab PO DAILY cyanocobalamin (vitamin B-12) 250 mcg PO DAILY loperamide 2 mg PO Q6H PRN metoprolol tartrate 50 mg PO BID 90 days nystatin 1 appl topical DAILY PRN potassium citrate ER 20 mEq (2 x 10 mEq (1,080 mg)) PO BID 90 days psyllium (Hydrocil Instant oral packet) 1 packet PO DAILY pyridoxine (vitamin B6) 100 mg PO DAILY 90 days simvastatin 5 mg PO BEDTIME HPI HPI Comments History of Present Illness Details Dirk returns for follow-up regarding atrial arrhythmias. To recall, in the past, he was referred to our office due to irregular heart rhythm noted in PCP's office. Holter had shown frequent atrial ectopy. During last appointment few months back, he was doing okay but then he was admitted to the hospital with acute renal failure. Creatinine was as much as 9 but then subsequently improved. [place] to be all from diarrhea and dehydration setting of Crohn's disease. 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 Lymphangitis Edema of lower extremity Parastomal hernia Obesity (BMI 30-39.9) Dyspnea on exertion Nocturnal hypoxemia Restrictive lung disease Essential hypertension Atrial arrhythmia Hemophilia Loja cyst Renal stones History of cataract BPH (benign prostatic hyperplasia) Gout Crohn's disease Peripheral vascular disease Thrombocytopenia History of hepatitis C Cholelithiasis Osteopenia Surgical History S/P colectomy Status post ablation of incompetent vein using laser (01/13/23) H/O tooth extraction History of appendectomy History of urethral stent History of cataract surgery H/O wrist surgery Family History Father Prostate cancer Mother Diabetes Maternal Grandfather Factor VIII deficiency hemophilia Social History Household Members: Spouse Household Members Other:: 1 Housing: House Are you a primary doggy daycare activities director to a significant other at home: No Do you presently have visiting nurse or other home services: No Alcohol intake: current Alcohol intake frequency: 3 or more drinks per day Alcohol type: beer Patient Tobacco Use Status: Never used Tobacco e-Cigarette/Vaping Use: Never Used Second Hand Smoke Exposure: No service: No Current occupational status: retired Cognitive needs: No Hearing needs: No Vision needs: Yes Review of Systems Const Denies weakness ENT Denies dizziness Card Denies chest pain, Denies chest pain with activity, Denies syncope, Denies rapid heart rate, Denies pedal edema, Denies edema, Denies leg edema, Denies lightheadedness, Denies palpitations, Denies dyspnea, Denies dyspnea on exertion and Denies orthopnea Resp Denies cough, Denies dyspnea and Denies dyspnea on exertion GI Denies hematochezia and Denies change in stool character Musc Denies abnormal gait, Denies muscle cramps, Denies muscle weakness, Denies numbness, Denies radiating pain into limb and Denies tingling Neuro Denies abnormal gait, Denies dizziness, Denies syncope, Denies numbness, Denies tingling and Denies weakness Endo Denies palpitations Physical Exam Vital Signs: Last Vital Signs Pulse 112 H 09/26/23 15:08 BP 126/72 09/26/23 15:08 BMI result Body Mass Index 32.0 Const General: comfortable and no acute distress Orientation/consciousness: patient oriented x3 HEENT Other: Unremarkable Head: Yes normal to inspection Neck Neck: Yes normal visual inspection Chest Chest palpation & inspection: normal inspection of the chest Resp Auscultation: clear to auscultation bilaterally Cardio Palpation: normal PMI Heart sounds: S1 normal heart sound present, S2 normal heart sound present, no gallops, no murmurs and no rubs GI Palpation (GI): Soft to palpation Back/Spine/Pelvis Other: unremarkable Skin General skin exam: no rashes or lesions noted Neuro General: patient oriented x3 Extrem General: Yes normal to inspection Psych Mental Status: mental status grossly normal Assessment & Plan Assessment & Plan (1) Atrial flutter with rapid ventricular response: Code(s): I48.92 - Unspecified atrial flutter Plan: He used to have very high degree of atrial ectopy, as much as 41% in the previous Holter. More recently, he has been atrial flutter with rapid rate. He is currently on metoprolol 37.5 mg b.i.d.. We will increase the dose to 50 mg b.i.d.. We will hold off on digoxin as he has had acute renal failure recently. As the creatinine is indeed improving, may have to use it if the heart rate stays high. LVEF preserved on the echocardiogram. He has also had sleep studies but no clear evidence of the same. With regard to anticoagulation, difficult to decide as he has hemophilia. He does not have any spontaneous bleeding. He is not on any oral anticoagulation and can just take aspirin for the time being. Will need to discuss with Hematology the future as well as EP as to definitive plan. I am not clear if he will be suitable for flutter ablation as he still have residual high atrial ectopy and likely future atrial fibrillation as well which will require anticoagulation either way. Other option might be just rate control and Watchman device. To be decided. (2) Essential hypertension: Code(s): I10 - Essential (primary) hypertension Plan: Off lisinopril. Of note, recent admission for acute renal failure but that improved. Creatinine was as much as 9.7 but most recently 1.25. Plan Discussed with significant other who came for appointment. Orders: Orders ECG 3 day holter monitor 3 Months I48.92 - Unspecified atrial flutter Medications: New metoprolol tartrate 50 mg PO BID 90 days 180 tabs 3RF Changed From loperamide 2 mg PO Q6H PRN 30 caps 0RF Diarrhea To loperamide 2 mg PO Q6H PRN Diarrhea Discontinued metoprolol succinate ER Discontinued Reason: Doctor's Order 37.5 mg (1.5 x 25 mg) PO BID 90 tabs 0RF Coding Level of Care Code Est Pt Level 4 (70040) Diagnoses Atrial flutter with rapid ventricular response I48.92 Essential hypertension I10
[2023-09-26 15:08] VITALS: BP 126/72; PULSE 112; BMI 32.0
== END 2023-09-26 15:24 | disposition home or self-care (01) ==
PROVIDERS: PCP Internal Medicine; Visit Provider Internal Medicine
DX: I48.92 Unspecified atrial flutter (principal); I10 Essential (primary) hypertension
CPT/HCPCS: 99214

== ENCOUNTER → 2023-09-26 14:57 | Outpatient (BNVA) | payer BC, SELFPAY | PROVIDERS: PCP Internal Medicine; Visit Provider Internal Medicine ==

== ENCOUNTER 2023-10-18 09:36 | Outpatient (REF) | payer BC, SELFPAY ==
[2023-10-18 10:52] LABS: Hematocrit 41.6 % (42.0-52.0); Hemoglobin 13.6 g/dl (14.0-18.0); Mean Corpuscular HGB Conc 32.7 g/dl (31.0-36.0); Mean Corpuscular Hemoglobin 34.3 pg (27.0-33.0); Mean Corpuscular Volume 104.8 fL (80.0-98.0); Mean Platelet Volume 9.9 fL (9.4-12.4); Platelet Count 167 X10*3/uL (160-400); Red Blood Count 3.97 X10*6/uL (4.60-5.80); Red Cell Distribution Width 14.9 % (11.0-16.0); White Blood Count 7.1 X10*3/uL (4.8-10.8)
[2023-10-18 11:25] LABS: Anion Gap 11 (12-20); Blood Urea Nitrogen 14 mg/dL (9-16); Carbon Dioxide 26 mmol/L (22-29); Chloride 105 mmol/L (96-108); Estimated Glomerular Filt Rate 47; Glucose Random 89 mg/dL (60-115); Potassium 5.3 mmol/L (3.3-5.1); Sodium 137 mmol/L (135-145)
== END 2023-10-18 09:37 | disposition home or self-care (01) ==
LOC: HO.LAB 09:36
PROVIDERS: Family Medicine; PCP Internal Medicine; Visit Provider Internal Medicine Hypertension Specialist
DX: N17.9 Acute kidney failure, unspecified (principal); I48.92 Unspecified atrial flutter; D66 Hereditary factor VIII deficiency
CPT/HCPCS: 36415; 80048; 85027

== ENCOUNTER 2023-10-25 08:51 | Outpatient (AMB) | payer BC, SELFPAY ==
--- NOTE | 2023-10-25 08:54 | A.OFFVIS_ITS ---
Intake Intake Visit Reasons: 4M CT(Set) Intake Note: Patient presents today for a follow-up on CT Results: Meds- Vitamin B6 Allergies to Antibiotic- No Known Allergies Blood Thinner- Aspirin Lehr Attendant Required: No Accompanied by: Self / Same As Patient Allergies No Known Allergies Allergy (Verified 08/31/23 11:34) HPI HPI Comments History of Present Illness Details Dirk is very pleasant male. He is a patient of Dr. Parikh. He seen for the following urologic conditions - renal stones - lower urinary tract symptoms Twelve month review CT scan stones remain stable Continue potassium citrate Last PSA 12/22 1.6 - own and he is repeating every 2 years Lower urinary tract symptoms Nocturia x3 Weakness of stream Progressive Trial tamsulosin Nephrolithiasis/Urolithiasis: Secondary to Crohn's Remain on potassium citrate with vitamin B6 They are here for further evaluation of nephrolithiasis. [place] [facility] [place] with right flank pain. The patient previously had kidney stones whose composition w 10/21 uric acid 80% CaOx 20%. Laboratory investigations include 11/21 , Hyperuricemia, borderline high calcium. Prior treatment(s) include Typically has had stones every 15-20 years starting in early 1970s 10/21 , right, ureteroscopy - distal. Prior imaging includes 03/20 , a CT (computed tomography) scan of the abdomen/pelvis (stone protocol) - multiple 2 mm stones on right side, distal right ureteric stone with hydroureteronephrosis, left 2-3 cm cyst 04/19 , a renal ultrasound, showing no evidence of stones - left 2-3 cm cyst, prostate 70 g 09/19 , a CT (computed tomography) scan of the abdomen/pelvis (stone protocol) - 5mm distal right stone with mild hydro 10/21 multiple right 5mm stones on US - 09/20 multiple right stones on ultrasound - 04/21 renal u/s minimal stone on right, left clear - 11/23 renal ultrasound no evidence of renal stones, hepatic steatosis - 05/23 renal ultrasound 9 mm right, 4 mm left, cyst on left kidney Current therapeutic plan - continue with fluid intake PFSH Medical History Back pain Bilateral kidney stones 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 Lymphangitis Edema of lower extremity Parastomal hernia Obesity (BMI 30-39.9) Dyspnea on exertion Nocturnal hypoxemia Restrictive lung disease Essential hypertension Atrial arrhythmia Hemophilia Loja cyst Renal stones History of cataract BPH (benign prostatic hyperplasia) Gout Crohn's disease Peripheral vascular disease Thrombocytopenia History of hepatitis C Cholelithiasis Osteopenia Surgical History S/P colectomy Status post ablation of incompetent vein using laser (01/13/23) H/O tooth extraction History of appendectomy History of urethral stent History of cataract surgery H/O wrist surgery Family History Father Prostate cancer Mother Diabetes Maternal Grandfather Factor VIII deficiency hemophilia Social History Household Members: Spouse Household Members Other:: 1 Housing: House Are you a primary healthcare project manager to a significant other at home: No Do you presently have visiting nurse or other home services: No Alcohol intake: current Alcohol intake frequency: 3 or more drinks per day Alcohol type: beer Patient Tobacco Use Status: Never used Tobacco e-Cigarette/Vaping Use: Never Used Second Hand Smoke Exposure: No service: No Current occupational status: retired Cognitive needs: No Hearing needs: No Vision needs: Yes Review of Systems Const Denies chills and Denies fever(s) Card Reports no additional complaints and Denies syncope Resp Denies cough GI Denies abdominal pain and Denies heartburn Reports as per HPI and Denies change in libido Neuro Denies syncope Psych Denies change in libido Endo Denies change in libido Physical Exam Const General: cooperative, healthy appearing, comfortable and no acute distress Orientation/consciousness: patient oriented x3 HEENT Face and sinus: Yes normal facial exam Mouth: moist mucous membranes Neck Neck: Yes normal visual inspection, Yes full ROM and Yes trachea midline Chest Chest palpation & inspection: normal inspection of the chest Resp Effort & Inspection: normal respiratory effort, able to speak in complete sentences and no respiratory distress GI Inspection: Yes normal to inspection Back/Spine/Pelvis Cervical Spine: normal cervical lordosis Thoracic/Lumbar Spine: thoracic and lumbar spine normal to inspection Skin General skin exam: no rashes or lesions noted Neuro General: patient oriented x3, gait normal, tone normal and moves all extremities Extrem General: Yes normal to inspection and Yes capillary refill normal Assessment & Plan Assessment & Plan (1) BPH (benign prostatic hyperplasia): Code(s): N40.0 - Benign prostatic hyperplasia without lower urinary tract symptoms (2) Renal stones: Comment: Right renal calculi December 2018 uric acid stone October 2019 stable 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 No major barriers to patient understanding were identified. An opportunity to ask questions regarding the treatment plan was provided. All questions were answered. The patient expressed understanding and agreement with the above treatment plan. The patient is aware they should contact our office by phone for worsening of their current condition or the appearance of new urologic symptoms. Compliance is encouraged with any medications and followup testing that is ordered. It is a privilege to participate in the urologic care of your patient. If you have any questions or concerns regarding treatment for the above conditions, or other urologic issues, please do not hesitate to contact me. The office telephone contact is [phone]. This note is constructed using voice recognition software. While every effort has been made to ensure accuracy gate person errors may have been included. Yours sincerely, Dr Armani Rose MD, [facility] - Urology Providers of Expert, Compassionate Care for the Genitourinary System Coding Level of Care Code Est Pt Level 4 (68867) Diagnoses BPH (benign prostatic hyperplasia) N40.0 Renal stones N20.0
== END 2023-10-25 09:23 | disposition home or self-care (01) ==
LOC: HO.HUSH 08:51
PROVIDERS: PCP Internal Medicine; Visit Provider Urology
DX: N40.0 Benign prostatic hyperplasia without lower urinary tract symptoms (principal); N20.0 Calculus of kidney
CPT/HCPCS: 99214

== ENCOUNTER → 2023-10-25 08:51 | Outpatient (BNVA) | payer BC, SELFPAY | PROVIDERS: PCP Internal Medicine; Visit Provider Urology ==

== ENCOUNTER 2023-10-30 08:52 | Outpatient (AMB) | payer BC, MEDICARE, SELFPAY ==
[2023-10-30 08:54] VITALS: BP 122/70; PULSE 82; O2SAT 98; BMI 32.1
--- NOTE | 2023-10-30 08:54 | MHC.PC.OV ---
Vital Signs 10/30/23 08:54 Height 6 ft 1 in Weight 243 lb 0.6 oz BMI 32.1 BP 122/70 Blood Pressure Location Lt brachial Position Sitting Pulse 82 Pulse Source Pulse Oximeter Pulse Oximetry (%) 98 Oxygen Delivery Method Room Air Intake Visit Reasons: Annual Exam Intake Note: Patient is here today for a physical. Multiple Coil Winder Required: No Allergies No Known Allergies Allergy (Verified 10/30/23 08:54) Medication List - Last Reconciled 10/30/23 by Jennifer Parikh MD aspirin 81 mg PO DAILY calcium carbonate-vitamin D3 600 mg-5 mcg (200 unit) (Calcium 600 + D(3)) 1 tab PO DAILY cyanocobalamin (vitamin B-12) 250 mcg PO DAILY loperamide 2 mg PO Q6H PRN metoprolol tartrate 50 mg PO BID 90 days nystatin 1 appl topical DAILY PRN potassium citrate ER 20 mEq PO DAILY psyllium (Hydrocil Instant oral packet) 1 packet PO DAILY pyridoxine (vitamin B6) 100 mg PO DAILY 90 days simvastatin 5 mg PO BEDTIME tamsulosin 0.4 mg PO BEDTIME 30 days Tobacco use date assessed: 10/30/23 Fall risk assessment: No Falls in past year Last assessed Fall Risk: 10/30/23 Dental Screening Dental Screen Date: 10/30/23 Did you have a dental visit in the last 12 months?: Yes Did you have a dental problem in the last 6 months where you did not have access to dental care?: No Was dental information given to patient?: Patient has dentist HPI Annual Exam HPI Details 73-year-old obese male with a history of hypercholesterolemia nephrolithiasis hypertension history of SVT coming in for physical exam last seen in July 2023. Review of the notes seen urology diagnosis of BPH and right renal calculi uric acid tamsulosin given. Patient was also following up with Cardiology seen in September 26 had a Holter done( Patient was monitored for total period of 2 days and 23 hours 2. Baseline was atrial fibrillation with average heart of 94 beats per minute with borderline rate control 3. No significant pauses noted 4. Occasional PVCs noted 5. No patient reported events )patient has been in atrial flutter with rapid rate on metoprolol 37.5 mg twice a day which will be increased to 50 mg twice a day. Stop digoxin(recently had renal failure) anticoagulation not set up due to history of hemophilia and for the moment takes aspirin. Patient did see Nephrology also renal failure occurred due to significant diarrhea and poor p.o. intake. Had a CT scan done August 2023Nonobstructive bilateral renal calculi. 2. Hepatic steatosis. 3. Cholelithiasis but no evidence of acute cholecystitis. 4. Status post colectomy with a right lower quadrant ileostomy and large parastomal hernia containing omental fat and nonobstructed loops of small bowel, not significantly changed compared to 09/25/2019. 5. Prostatomegaly. 6. Chronic compression deformities at T10 and T12, unchanged compared 08/21/2023 admitted had lightheadedness dizziness and generalized weakness for 1 week high ostomy discharge Patient states received a call from physician regarding decreasing the potassium. Patient confused it with decreasing metoprolol to once a day. Corrected the patient as I go through the notes that potassium was the 1 advised to decrease and to continue with metoprolol twice a day. 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 Lymphangitis Edema of lower extremity Parastomal hernia Obesity (BMI 30-39.9) Dyspnea on exertion Nocturnal hypoxemia Restrictive lung disease Essential hypertension Atrial arrhythmia Hemophilia Loja cyst Renal stones History of cataract BPH (benign prostatic hyperplasia) Gout Crohn's disease Peripheral vascular disease Thrombocytopenia History of hepatitis C Cholelithiasis Osteopenia Surgical History S/P colectomy Status post ablation of incompetent vein using laser (01/13/23) H/O tooth extraction History of appendectomy History of urethral stent History of cataract surgery H/O wrist surgery Family History Father Prostate cancer Mother Diabetes Maternal Grandfather Factor VIII deficiency hemophilia Social History (Updated 10/30/23 @ 09:21 by Jennifer Parikh MD) Household Members: Spouse Household Members Other:: 1 Housing: House Are you a primary lawn caretaker to a significant other at home: No Do you presently have visiting nurse or other home services: No Alcohol intake: current Alcohol intake frequency: 3 or more drinks per day Alcohol type: beer Comment: once a month 3 beers Patient Tobacco Use Status: Never used Tobacco e-Cigarette/Vaping Use: Never Used Second Hand Smoke Exposure: No service: No Current occupational status: retired Cognitive needs: No Hearing needs: No Vision needs: Yes Questionnaire PHQ-9 Over the last 2 weeks, how often have you been bothered by any of the following problems? 1. Little interest or pleasure in doing things: not at all 2. Feeling down, depressed, or hopeless: not at all 3. Trouble falling or staying asleep, or sleeping too much: not at all 4. Feeling tired or having little energy: not at all 5. Poor appetite or overeating: not at all 6. Feeling bad about yourself - or that you are a failure or have let yourself or your family down: not at all 7. Trouble concentrating on things, such as reading the newspaper or watching television: not at all 8. Moving or speaking so slowly that other people could have noticed. Or the opposite - being so fidgety or restless that you have been moving around a lot more than usual: not at all 9. Thoughts that you would be better off or of hurting yourself in some way: not at all Total score: 0 Depression Screening Interpretation: Negative Depression Screening Done: Yes Source: Developed by Drs. Rowdy Lugo, Willie Hayward and colleagues, with an educational trinidad from [employer]. Thrive Questionnaire Date Thrive assessed: 10/30/23 AUDIT C Alcohol Use Questionnaire (AUDIT-C) 1. How often do you have a drink containing alcohol?: Monthly or less 2. How many drinks containing alcohol do you have on a typical day when you are drinking?: 1 or 2 3. How often do you have six or more drinks on one occasion?: Never Total Score: 1 MARISOL-7 AMB Questionnaire MARISOL-7 Date MARISOL - 7 assessed: 10/30/23 Source: Developed by Drs. Rowdy Lugo, Willie Hayward and colleagues, with an educational trinidad from [employer]. Review of Systems Const Denies poor appetite and Denies weakness Eyes Denies no additional complaints ENT Reports Normal hearing present, Denies dizziness, Denies nasal congestion, Denies tinnitus and Denies sore throat Card Denies chest pain, Denies syncope, Denies rapid heart rate and Denies dyspnea Resp Denies cough and Denies dyspnea GI Denies change in stool character, Reports constipation, Denies diarrhea, Denies nausea and Denies vomiting Denies dysuria and Denies urinary frequency Neuro Reports Normal hearing present, Denies confusion, Denies dizziness, Denies syncope and Denies weakness Psych Denies confusion Physical exam (Primary Care) Vital Signs: Last Vital Signs Pulse 82 10/30/23 08:54 BP 122/70 10/30/23 08:54 Pulse Ox 98 10/30/23 08:54 Oxygen Delivery Method Room Air 10/30/23 08:54 BMI result Body Mass Index 32.1 Tobacco/Smoking Status: Tobacco use Status Tobacco use date assessed 10/30/23 10/30/23 09:00 Patient Tobacco Use Status Never used Tobacco 10/30/23 09:00 e-Cigarette/Vaping Use Never Used 10/30/23 09:00 PHQ-9: PHQ-9 Score PHQ-9: Total score 0 10/30/23 09:00 Depression Screening Interpretation: Negative Thrive Assessment: Date of Thrive Assessment Date Thrive assessed 10/30/23 10/30/23 09:00 Const General: No confusion Orientation/consciousness: No confusion HENMT Head: Yes normocephalic Ears: external ears normal and TM's normal bilaterally Face and sinus: Yes normal facial exam Mouth: moist mucous membranes Throat: Yes tonsils normal Eyes Conjunctivae: conjunctivae normal Pupils: Equal, round and reactive pupils present and Pupil accommodation reflex normal Direct Ophthalmoscopy: normal light reflex Neck Neck: No lymphadenopathy Thyroid: Thyroid normal Chest Chest palpation & inspection: normal inspection of the chest Resp Effort & Inspection: normal respiratory effort and no audible wheezes Auscultation: clear to auscultation bilaterally, no crackles, no wheezes and lung sounds not diminished Cardio Rate: regular rate Rhythm: regular rhythm Peripheral pulses: radial pulses present and dorsalis pedis present GI Other: R ileostomy with parastomal hernia Palpation (GI): no masses Auscultation: normal bowel sounds and normoactive bowel sounds Rectal Exam - Male: Yes deferred Other: assymetrical groin mild bulginh R side Skin General skin exam: no rashes or lesions noted Rashes: no rashes Neuro General: No confusion Cranial nerves: Yes Equal, round and reactive pupils present and Yes Normal hearing present Cognition (Neuro): normal cognition Gait exam (Neuro): Normal gait present Motor exam (neuro): 5/5 motor strength present throughout Deep tendon reflexes (DTR's): Right brachioradialis reflex intensity grade: 2+, Left brachioradialis reflex intensity grade: 2+, Right patellar reflex intensity grade: 2+ and Left patellar reflex intensity grade: 2+ Extrem Other: ++ melissa bilateral legs General: Yes edema Assessment and Plan Assessment & Plan (1) Annual physical exam: Code(s): Z00.00 - Encounter for general adult medical examination without abnormal findings (2) Obesity (BMI 30-39.9): Comment: PATIENT IS MODERATELY OBESE THERE HAS BEEN NO RECENT INCREASE IN HIS WEIGHT. I MADE HIM AWARE THAT HE SHOULD LOSE ABOUT 10 LB OF WEIGHT Code(s): E66.9 - Obesity, unspecified Plan: Diet and exercise (3) Gout: Code(s): M10.9 - Gout, unspecified Qualifiers: Gout site: multiple sites Gout etiology: other secondary cause Chronicity: chronic Presence of tophus: without tophus Qualified Code(s): M1A.49X0 - Other secondary chronic gout, multiple sites, without tophus (tophi) Plan: Low purine diet (4) BPH (benign prostatic hyperplasia): Code(s): N40.0 - Benign prostatic hyperplasia without lower urinary tract symptoms Plan: Patient follows up with urology placed on tamsulosin (5) Essential hypertension: Code(s): I10 - Essential (primary) hypertension Plan: Continue with blood pressure medication. 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 (8) Cholelithiasis: Comment: March 2019 Code(s): K80.20 - Calculus of gallbladder without cholecystitis without obstruction Plan: Low-fat diet (9) Fatty liver: Code(s): K76.0 - Fatty (change of) liver, not elsewhere classified Plan: Low-fat diet and exercise (10) Hypercholesteremia: Code(s): E78.00 - Pure hypercholesterolemia, unspecified Plan: Avoid fried foods, chicken skin, eggs, butter margarine, pastries and meat. Be it pork or beef they have a lot of cholesterol presently on simvastatin 5 mg once a day (11) Atrial fibrillation with rapid ventricular response: Code(s): I48.91 - Unspecified atrial fibrillation Plan: Patient on metoprolol recently followed up by Cardiology. Anticoagulation not instituted due to hemophilia. Options given question of ablation, watchman's device. (12) Peripheral vascular disease: Code(s): I73.9 - Peripheral vascular disease, unspecified Plan: When sitting down elevate the legs, exercise, and support stockings. Discussed with the patient the need to elevate this leg or support stockings to prevent the swelling. Orders: Orders Magnesium 2 Months I48.92 - Unspecified atrial flutter Complete Blood Count Auto Diff 2 Months I48.92 - Unspecified atrial flutter Comprehensive Met. 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
== END 2023-10-30 09:36 | disposition home or self-care (01) ==
PROVIDERS: Visit Provider Internal Medicine
DX: Z00.00 Encounter for general adult medical examination without abnormal findings (principal); Z43.2 Encounter for attention to ileostomy; I48.91 Unspecified atrial fibrillation; I73.9 Peripheral vascular disease, unspecified; E66.9 Obesity, unspecified; M1A.49X0 Other secondary chronic gout, multiple sites, without tophus (tophi); N40.0 Benign prostatic hyperplasia without lower urinary tract symptoms; I10 Essential (primary) hypertension; N20.0 Calculus of kidney; K80.20 Calculus of gallbladder without cholecystitis without obstruction; K76.0 Fatty (change of) liver, not elsewhere classified; E78.00 Pure hypercholesterolemia, unspecified
CPT/HCPCS: 99397

== ENCOUNTER → 2023-12-04 10:25 | Outpatient (REF) | payer BC, SELFPAY ==
--- NOTE | 2023-12-04 10:27 | HM_ITS ---
Conclusion: 1. Patient was monitored for total period of 2 days and 23 hours 2. Baseline was atrial fibrillation with average heart of 85 beats per minute with overall adequate rate control 3. Occasional PVCs noted 4. No significant pauses noted 5. No patient reported events MTDD
== END ==
LOC: HO.CARD 10:25
PROVIDERS: PCP Internal Medicine; Visit Provider Internal Medicine
DX: I48.92 Unspecified atrial flutter (principal)
CPT/HCPCS: 93242

== ENCOUNTER → 2023-12-04 10:27 | Outpatient (BNV) | payer BC, SELFPAY | PROVIDERS: PCP Internal Medicine; Visit Provider Internal Medicine Cardiovascular Disease | DX: I48.91 Unspecified atrial fibrillation (principal) | CPT/HCPCS: 93244 ==

== ENCOUNTER 2023-12-19 13:49 | Outpatient (AMB) | payer BC, SELFPAY ==
--- NOTE | 2023-12-19 13:55 | A.OFFVIS_ITS ---
Intake Vital Signs 12/19/23 13:56 Height 6 ft 1 in Weight 244 lb 11.41 oz BMI 32.3 BP 130/64 Blood Pressure Location Lt brachial Position Sitting Pulse 90 Intake Visit Reasons: follow up holter Intake Note: follow up holter Manager Strategy & Account Required: No Accompanied by: Spouse Allergies No Known Allergies Allergy (Verified 12/19/23 13:56) Medication List - Last Reconciled 12/19/23 by Alex Dueñas MD aspirin 81 mg PO DAILY calcium carbonate-vitamin D3 600 mg-5 mcg (200 unit) (Calcium 600 + D(3)) 1 tab PO DAILY cyanocobalamin (vitamin B-12) 250 mcg PO DAILY loperamide 2 mg PO Q6H PRN metoprolol tartrate 50 mg PO BID 90 days nystatin 1 appl topical DAILY PRN potassium citrate ER 20 mEq PO DAILY psyllium (Hydrocil Instant oral packet) 1 packet PO DAILY pyridoxine (vitamin B6) 100 mg PO DAILY 90 days simvastatin 5 mg PO BEDTIME tamsulosin 0.4 mg PO BEDTIME 30 days HPI HPI Comments History of Present Illness Details Dirk returns for follow-up regarding atrial arrhythmias. He was seen in the past due to irregular heart rhythm/frequent atrial ectopy. In August 2023, he was admitted to the hospital with acute renal failure. His creatinine was almost 10. [place] to be from diarrhea/dehydration in setting of Crohn's disease. Since that time, he has been having persistent atrial flutter. He does get some shortness of breath with activity but otherwise fine for the most part. He also has hemophilia and hence not on any anticoagulation due to concern for bleeding risk. Remains on low-dose aspirin. 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 Lymphangitis Edema of lower extremity Parastomal hernia Obesity (BMI 30-39.9) Dyspnea on exertion Nocturnal hypoxemia Restrictive lung disease Essential hypertension Atrial arrhythmia Hemophilia Loja cyst Renal stones History of cataract BPH (benign prostatic hyperplasia) Gout Crohn's disease Peripheral vascular disease Thrombocytopenia History of hepatitis C Cholelithiasis Osteopenia Surgical History S/P colectomy Status post ablation of incompetent vein using laser (01/13/23) H/O tooth extraction History of appendectomy History of urethral stent History of cataract surgery H/O wrist surgery Family History Father Prostate cancer Mother Diabetes Maternal Grandfather Factor VIII deficiency hemophilia Social History Household Members: Spouse Household Members Other:: 1 Housing: House Are you a primary skin care technician to a significant other at home: No Do you presently have visiting nurse or other home services: No Alcohol intake: current Alcohol intake frequency: 3 or more drinks per day Alcohol type: beer Comment: once a month 3 beers Patient Tobacco Use Status: Never used Tobacco e-Cigarette/Vaping Use: Never Used Second Hand Smoke Exposure: No service: No Current occupational status: retired Cognitive needs: No Hearing needs: No Vision needs: Yes Review of Systems Const Denies weakness ENT Denies dizziness Card Denies chest pain, Denies chest pain with activity, Denies syncope, Denies rapid heart rate, Denies pedal edema, Denies edema, Denies leg edema, Denies lightheadedness, Denies palpitations, Denies dyspnea on exertion and Denies orthopnea Resp Denies cough and Denies dyspnea on exertion GI Denies hematochezia and Denies change in stool character Musc Denies abnormal gait, Denies muscle cramps, Denies muscle weakness, Denies numbness, Denies radiating pain into limb and Denies tingling Neuro Denies abnormal gait, Denies dizziness, Denies syncope, Denies numbness, Denies tingling and Denies weakness Endo Denies palpitations Physical Exam Vital Signs: Last Vital Signs Pulse 90 12/19/23 13:56 BP 130/64 12/19/23 13:56 BMI result Body Mass Index 32.3 Const General: comfortable and no acute distress Orientation/consciousness: patient oriented x3 HEENT Other: Unremarkable Head: Yes normal to inspection Neck Neck: Yes normal visual inspection Chest Chest palpation & inspection: normal inspection of the chest Resp Auscultation: clear to auscultation bilaterally Cardio Palpation: normal PMI Heart sounds: S1 normal heart sound present, S2 normal heart sound present, no gallops, no murmurs and no rubs GI Palpation (GI): Soft to palpation Back/Spine/Pelvis Other: unremarkable Skin General skin exam: no rashes or lesions noted Neuro General: patient oriented x3 Extrem General: Yes normal to inspection Psych Mental Status: mental status grossly normal Assessment & Plan Assessment & Plan (1) Atrial flutter with rapid ventricular response: Code(s): I48.92 - Unspecified atrial flutter Plan: He used to have very high degree of atrial ectopy, as much as 41% in the previous Holter. In the recent Holter, reported as atrial fibrillation but the strips rather show mainly flutter throughout with an average rate of 85/min. LVEF is preserved on the echocardiogram at 65-70%. Treatment is mainly complicated because he also has concurrent hemophilia. He remains only on aspirin. Not on any anticoagulation due to concern for bleeding risk. We discussed about various options. Watchman could be a consideration in which case he can just remain on aspirin only. Also question if the actual likelihood of left atrial appendage thrombus would be lower simply because he has hemophilia. Flutter ablation can be considered but with his high PAC burden at baseline, there is a risk of atrial fibrillation in the future. We will plan on sending him to EP for further evaluation. In the interim, may remain on beta-blockers/aspirin. He has also had sleep studies but no clear evidence of REGINO. (2) Essential hypertension: Code(s): I10 - Essential (primary) hypertension Plan: Off lisinopril. Of note, recent admission for acute renal failure but that improved. Creatinine was as much as 9.7 but most recently 1.25. Plan Discussed with significant other who came for appointment. We will refer Dr. Leslie to evaluate suitability for atrial flutter ablation versus Watchman. Orders: Referrals Cardiac Electrophysiology Referral I48.92 - Unspecified atrial flutter Coding Level of Care Code Est Pt Level 4 (58552) Diagnoses Atrial flutter with rapid ventricular response I48.92 Essential hypertension I10
[2023-12-19 13:56] VITALS: BP 130/64; PULSE 90; BMI 32.3
== END 2023-12-19 14:11 | disposition home or self-care (01) ==
PROVIDERS: PCP Internal Medicine; Visit Provider Internal Medicine
DX: I48.92 Unspecified atrial flutter (principal); I10 Essential (primary) hypertension
CPT/HCPCS: 99214

== ENCOUNTER → 2023-12-19 13:49 | Outpatient (BNVA) | payer BC, SELFPAY | PROVIDERS: PCP Internal Medicine; Visit Provider Internal Medicine ==

== ENCOUNTER 2023-12-20 07:49 | Outpatient (REF) | payer BC, SELFPAY ==
--- NOTE | ~2023-12-20 | US_ITS ---
EXAMINATION: US RETROPERITONEAL LIMITED (RENAL ONLY) CLINICAL INFORMATION: Cyst of kidney, acquired. COMPARISON: CT abdomen and pelvis 09/04/2023. Renal ultrasound 06/12/2023 and 06/02/2022. MRI abdomen 12/21/2021. TECHNIQUE: Real-time imaging of the kidneys. FINDINGS: RIGHT KIDNEY: 10.3 x 4.8 x 4.6 cm (SAG x AP x TRV). The kidney is normal in size, contour, and echogenicity. Renal cortical thickness is normal. A few nonobstructing renal calculi are noted within the right kidney, largest measures approximately 2 cm. There is no hydronephrosis. LEFT KIDNEY: 12.0 x 5.5 x 6.1 cm (SAG x AP x TRV). The kidney is normal in size, contour, and echogenicity. Renal cortical thickness is normal. No renal calculi or hydronephrosis. There is a 2.8 cm midpole cyst which contains a thin avascular septation. US/US renal BI IMPRESSION: 1. Nonobstructing right renal calculi. No left-sided renal calculi. No hydronephrosis of either kidney. 2. 2.8 cm left renal cyst which contains a thin avascular septation.
== END 2023-12-20 07:50 | disposition home or self-care (01) ==
LOC: HO.US 07:49
PROVIDERS: PCP Internal Medicine; Visit Provider Urology
DX: N28.1 Cyst of kidney, acquired (principal)
CPT/HCPCS: 76775

== ENCOUNTER 2023-12-20 09:05 | Outpatient (REF) | payer BC, SELFPAY ==
[2023-12-20 11:06] LABS: Anion Gap 14 (12-20); Blood Urea Nitrogen 15 mg/dL (9-16); Calcium 9.7 mg/dL (8.4-10.2); Carbon Dioxide 25 mmol/L (22-29); Chloride 105 mmol/L (96-108); Estimated Glomerular Filt Rate 56; Potassium 4.6 mmol/L (3.3-5.1); Sodium 139 mmol/L (135-145)
== END 2023-12-20 09:06 | disposition home or self-care (01) ==
LOC: HO.10HDL 09:05
PROVIDERS: Visit Provider Internal Medicine Hypertension Specialist
DX: N17.9 Acute kidney failure, unspecified (principal); N20.0 Calculus of kidney
CPT/HCPCS: 36415; 80051; 82310; 82565; 84520

== ENCOUNTER → 2023-12-28 08:51 | Outpatient (BNVA) | payer BC, SELFPAY | PROVIDERS: PCP Internal Medicine; Visit Provider Urology ==

== ENCOUNTER 2023-12-28 09:20 | Outpatient (AMB) | payer BC, SELFPAY ==
--- NOTE | 2023-12-28 08:54 | MHC.OFFVIS ---
Intake Intake Visit Reasons: 2M US(set)confirmed portal Intake Note: Patient is Present for Telephone Follow Up Urology Med: Vitamin B6, Tamsulosin Antibiotic Allergy: none Blood Thinner:Aspirin Allergies No Known Allergies Allergy (Verified 12/28/23 08:57) HPI HPI Comments History of Present Illness Details Dirk is very pleasant male. He is a patient of Dr. Parikh. He seen for the following urologic conditions - renal stones - lower urinary tract symptoms Telemedicine Evaluation 15 min Consultation [facility] [place] Video attempted Follow-up from trial tamsulosin Improved stream Still with nocturia 2-3 Switch to terazosin 5 mg of finasteride Repeat follow-up in 2 months Reviewed renal ultrasound Repeat ultrasound shows decrease in stone burden on left side Continue potassium citrate Last PSA 12/22 1.6 - own and he is repeating every 2 years Lower urinary tract symptoms Initial symptom presentation - Nocturia x3, Weakness of stream, Progressive Prior medications include tamsulosin Nephrolithiasis/Urolithiasis: Secondary to Crohn's Remain on potassium citrate with vitamin B6 They are here for further evaluation of nephrolithiasis. Urolithiasis was diagnosed [facility] [place] 03/10/19 with right flank pain. The patient previously had kidney stones whose composition w 10/21 uric acid 80% CaOx 20%. Laboratory investigations include 11/21 , Hyperuricemia, borderline high calcium. Prior treatment(s) include Typically has had stones every 15-20 years starting in early 1970s 10/21 , right, ureteroscopy - distal. Prior imaging includes 03/20 , a CT (computed tomography) scan of the abdomen/pelvis (stone protocol) - multiple 2 mm stones on right side, distal right ureteric stone with hydroureteronephrosis, left 2-3 cm cyst 04/19 , a renal ultrasound, showing no evidence of stones - left 2-3 cm cyst, prostate 70 g 09/19 , a CT (computed tomography) scan of the abdomen/pelvis (stone protocol) - 5mm distal right stone with mild hydro 10/21 multiple right 5mm stones on US - 09/20 multiple right stones on ultrasound - 04/21 renal u/s minimal stone on right, left clear - 11/23 renal ultrasound no evidence of renal stones, hepatic steatosis - 05/23 renal ultrasound 9 mm right, 4 mm left, cyst on left kidney - 09/23 CT scan with multiple stones bilateral - 12/23 renal ultrasound shows resolution of stones on left side Current therapeutic plan - continue with fluid intake [facility] Medical History (Updated 10/30/23 @ 09:32 by Jennifer Parikh MD) Back pain Bilateral kidney stones 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 Lymphangitis Edema of lower extremity Parastomal hernia Obesity (BMI 30-39.9) Dyspnea on exertion Nocturnal hypoxemia Restrictive lung disease Essential hypertension Atrial arrhythmia Hemophilia Loja cyst Renal stones History of cataract BPH (benign prostatic hyperplasia) Gout Crohn's disease Peripheral vascular disease Thrombocytopenia History of hepatitis C Cholelithiasis Osteopenia Surgical History S/P colectomy Status post ablation of incompetent vein using laser (01/13/23) H/O tooth extraction History of appendectomy History of urethral stent History of cataract surgery H/O wrist surgery Family History Father Prostate cancer Mother Diabetes Maternal Grandfather Factor VIII deficiency hemophilia Social History Household Members: Spouse Household Members Other:: 1 Housing: House Are you a primary associate director career services to a significant other at home: No Do you presently have visiting nurse or other home services: No Alcohol intake: current Alcohol intake frequency: 3 or more drinks per day Alcohol type: beer Comment: once a month 3 monster Patient Tobacco Use Status: Never used Tobacco e-Cigarette/Vaping Use: Never Used Second Hand Smoke Exposure: No service: No Current occupational status: retired Cognitive needs: No Hearing needs: No Vision needs: Yes Review of Systems Const All systems reviewed & are unremarkable except as noted in HPI and below Reports no additional complaints Resp Reports no additional complaints GI Reports no additional complaints Reports as per HPI Musc Reports no additional complaints Physical Exam Telemedicine evaluation Appropriate responses Regular breathing rate and rhythm HEENT Head: Yes normal to inspection Ears: hearing grossly normal bilaterally Eyes General: appearance normal, both eyes and all related structures Neck Neck: Yes normal visual inspection Chest Chest palpation & inspection: normal inspection of the chest Resp Effort & Inspection: normal respiratory effort and able to speak in complete sentences Assessment & Plan Assessment & Plan (1) Renal stones: Comment: Right renal calculi December 2018 uric acid stone October 2019 stable 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 Code(s): N20.0 - Calculus of kidney (2) BPH (benign prostatic hyperplasia): Code(s): N40.0 - Benign prostatic hyperplasia without lower urinary tract symptoms Plan Two month follow-up Trial terazosin and finasteride Medications: New terazosin 5 mg PO BEDTIME 30 days 30 caps 1RF N40.0 - Benign prostatic hyperplasia without lower urinary tract symptoms, N40.1 - Benign prostatic hyperplasia with lower urinary tract symptoms, R35.0 - Frequency of micturition finasteride 5 mg PO DAILY 30 days 30 tabs 1RF N40.0 - Benign prostatic hyperplasia without lower urinary tract symptoms, N40.1 - Benign prostatic hyperplasia with lower urinary tract symptoms, R33.9 - Retention of urine, unspecified Discontinued tamsulosin Discontinued Reason: Doctor's Order 0.4 mg PO BEDTIME 30 days 30 caps 0RF N40.0 - Benign prostatic hyperplasia without lower urinary tract symptoms, N40.1 - Benign prostatic hyperplasia with lower urinary tract symptoms, R35.1 - Nocturia Patient Instructions: Imaging studies, laboratory and physical exam results were discussed and reviewed in detail. No major barriers to patient understanding were identified. An opportunity to ask questions regarding the treatment plan was provided. All questions were answered. The patient expressed understanding and agreement with the above treatment plan. The patient is aware they should contact our office by phone for worsening of their current condition or the appearance of new urologic symptoms. Compliance is encouraged with any medications and followup testing that is ordered. It is a privilege to participate in the urologic care of your patient. If you have any questions or concerns regarding treatment for the above conditions, or other urologic issues, please do not hesitate to contact me. The office telephone contact is [phone]. This note is constructed using voice recognition software. While every effort has been made to ensure accuracy mailing manager errors may have been included. Yours sincerely, Dr Armani Rose MD, [facility] - Urology Providers of Expert, Compassionate Care for the Genitourinary System Telehealth Telehealth Location of provider rendering services: practice address Location of patient: address on file Patient Identification confirmed using: Name, : Yes Telehealth method: video Patient verbally consented to treatment: Yes Patient verbally consented to billing insurance company: Yes Patient informed of any privacy concerns related to visit: Yes Coding Level of Care Code Est Pt Level 4 (31548) Diagnoses Renal stones N20.0 BPH (benign prostatic hyperplasia) N40.0
== END 2023-12-28 09:45 | disposition home or self-care (01) ==
PROVIDERS: PCP Internal Medicine; Visit Provider Urology
DX: N20.0 Calculus of kidney (principal); N40.0 Benign prostatic hyperplasia without lower urinary tract symptoms
CPT/HCPCS: 99214

== ENCOUNTER 2023-12-28 10:57 | Outpatient (AMB) | payer BC, SELFPAY ==
[2023-12-28 10:58] VITALS: BP 126/80; PULSE 81; O2SAT 96; BMI 32.2
--- NOTE | 2023-12-28 10:58 | HO.NEPHOV ---
HPI HPI Comments History of Present Illness Details 73-year-old male with a?PVD, hx of SVT, hemophilia A, restrictive lung disease, BPH, atrial ectopy, and ileostomy in the setting of Crohn's History of multiple renal stones. Status post stent placement Essentially normal renal function at baseline. He was admitted in Aug 2023 with LACY. Creatinine peaked at 9.7 mg/dL. Prior to the admission he had significant diarrhea and p.o. intake was poor. He has a history of nephrolithiasis He has multiple renal stones. CT scan at the time of admission showed multiple multiple calculi without any obstruction. During the hospital course renal functions improved with IV hydration. He did not require hemodialysis. He also had severe acidosis at time admission which promptly resolved. 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 Lymphangitis Edema of lower extremity Parastomal hernia Obesity (BMI 30-39.9) Dyspnea on exertion Nocturnal hypoxemia Restrictive lung disease Essential hypertension Atrial arrhythmia Hemophilia Loja cyst Renal stones History of cataract BPH (benign prostatic hyperplasia) Gout Crohn's disease Peripheral vascular disease Thrombocytopenia History of hepatitis C Cholelithiasis Osteopenia Surgical History S/P colectomy Status post ablation of incompetent vein using laser (01/13/23) H/O tooth extraction History of appendectomy History of urethral stent History of cataract surgery H/O wrist surgery Family History Father Prostate cancer Mother Diabetes Maternal Grandfather Factor VIII deficiency hemophilia Social History Household Members: Spouse Household Members Other:: 1 Housing: House Are you a primary childbirth and infant care teacher to a significant other at home: No Do you presently have visiting nurse or other home services: No Alcohol intake: current Alcohol intake frequency: 3 or more drinks per day Alcohol type: beer Comment: once a month 3 beers Patient Tobacco Use Status: Never used Tobacco e-Cigarette/Vaping Use: Never Used Second Hand Smoke Exposure: No service: No Current occupational status: retired Cognitive needs: No Hearing needs: No Vision needs: Yes Vital Signs 12/28/23 10:58 Height 6 ft 1 in Weight 244 lb BMI 32.2 BP 126/80 Blood Pressure Location Lt brachial Position Sitting Pulse 81 Pulse Source Pulse Oximeter Pulse Oximetry (%) 96 Oxygen Delivery Method Room Air Physical Exam Vital Signs: Last Vital Signs Pulse 81 12/28/23 10:58 BP 126/80 12/28/23 10:58 Pulse Ox 96 12/28/23 10:58 Oxygen Delivery Method Room Air 12/28/23 10:58 BMI result Body Mass Index 32.2 Assessment & Plan Assessment & Plan (1) Renal stones: Comment: Right renal calculi December 2018 uric acid stone October 2019 stable 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 He will follow-up with Urology. The meantime increase him to stay on low-sodium diet. He should increase his fluid intake to maintain urine output of 2 L per 24 hours (2) LACY (acute kidney injury): Code(s): N17.9 - Acute kidney failure, unspecified Plan: LACY due to hypoperfusion from severe dehydration. Dehydration occurred due to diarrhea and setting of Crohn's disease and poor p.o. intake. Renal function is improving and close to baseline. No signs or symptoms of uremia. Continue to avoid nephrotoxic agents. Plan History of hyperkalemia in setting of LACY and continues Efe inhibitors. He was on potassium citrate. Hyperkalemia resolved with medical management. He is still on potassium citrate. We will follow serum potassium levels. Low K diet discussed Hyponatremia due to decreased free water clearance also resolved at the time of admission. Orders: Orders Basic Metabolic Panel 6 Months N20.0 - Calculus of kidney Coding Level of Care Code Est Pt Level 4 (97241) Diagnoses Renal stones N20.0 LACY (acute kidney injury) N17.9 Results Reviewed Nephrology Results: Hgb 13.6 g/dl (14.0-18.0) L 10/18/23 WBC 7.1 X10*3/uL (4.8-10.8) 10/18/23 Plt Count 167 X10*3/uL (160-400) 10/18/23 Sodium 139 mmol/L (135-145) 12/20/23 Potassium 4.6 mmol/L (3.3-5.1) 12/20/23 Chloride 105 mmol/L (96-108) 12/20/23 Carbon Dioxide 25 mmol/L (22-29) 12/20/23 BUN 15 mg/dL (9-16) 12/20/23 Creatinine 1.26 mg/dL (0.5-1.4) 12/20/23 Calcium 9.7 mg/dL (8.4-10.2) 12/20/23 Renal US 12/20/23
== END 2023-12-28 11:14 | disposition home or self-care (01) ==
PROVIDERS: PCP Internal Medicine; Visit Provider Internal Medicine Hypertension Specialist
DX: N20.0 Calculus of kidney (principal); N17.9 Acute kidney failure, unspecified
CPT/HCPCS: 99214

== ENCOUNTER 2024-01-18 09:48 | Outpatient (AMB) | payer BC, SELFPAY ==
--- NOTE | 2024-01-18 10:05 | MHC.OFFVIS ---
Intake Vital Signs 01/18/24 10:06 Height 6 ft 1 in Weight 243 lb 9.773 oz BMI 32.1 BP 122/70 Blood Pressure Location Rt brachial Position Sitting Pulse 79 Pulse Source Pulse Oximeter Pulse Oximetry (%) 98 Oxygen Delivery Method Room Air Intake Visit Reasons: Dyspnea Follow Up Allergies No Known Allergies Allergy (Verified 01/18/24 10:34) Medication List - Last Reconciled 01/18/24 by Meryl Johansen MD aspirin 81 mg PO DAILY calcium carbonate-vitamin D3 600 mg-5 mcg (200 unit) (Calcium 600 + D(3)) 1 tab PO DAILY cyanocobalamin (vitamin B-12) 250 mcg PO DAILY finasteride 5 mg PO DAILY 30 days metoprolol tartrate 50 mg PO BID 90 days nystatin 1 appl topical DAILY PRN potassium citrate ER 20 mEq PO DAILY pyridoxine (vitamin B6) 100 mg PO DAILY 90 days simvastatin 5 mg PO BEDTIME tamsulosin 0.4 mg PO DAILY terazosin 5 mg PO BEDTIME 30 days Do you need a note to return to daycare/school/sports/work: No HPI Dyspnea Follow Up HPI Details THIS 73 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 AGAIN HIS MAIN COMPLAINT IS GETTING SHORT OF BREATH ON WALKING FAST, CLIMBING STAIRS, BUT NOT AT REST. HE IS NOT ON ANY. PULMONARY MEDS HE IS NONSMOKER. HE IS KNOWN TO HAVE, CHRONIC RESTRICTIVE PULMONARY DISORDER , MAINLY BECAUSE CHRONICALLY ELEVATED RIGHT HEMIDIAPHRAGM. THE REASON FOR THAT IS NOT KNOWN. 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 Lymphangitis Edema of lower extremity Parastomal hernia Obesity (BMI 30-39.9) Dyspnea on exertion Nocturnal hypoxemia Restrictive lung disease Essential hypertension Atrial arrhythmia Hemophilia Loja cyst Renal stones History of cataract BPH (benign prostatic hyperplasia) Gout Crohn's disease Peripheral vascular disease Thrombocytopenia History of hepatitis C Cholelithiasis Osteopenia Surgical History S/P colectomy Status post ablation of incompetent vein using laser (01/13/23) H/O tooth extraction History of appendectomy History of urethral stent History of cataract surgery H/O wrist surgery Family History Father Prostate cancer Mother Diabetes Maternal Grandfather Factor VIII deficiency hemophilia Social History Household Members: Spouse Household Members Other:: 1 Housing: House Are you a primary child caregiver private home to a significant other at home: No Do you presently have visiting nurse or other home services: No Alcohol intake: current Alcohol intake frequency: 3 or more drinks per day Alcohol type: beer Comment: once a month 3 beers Patient Tobacco Use Status: Never used Tobacco e-Cigarette/Vaping Use: Never Used Second Hand Smoke Exposure: No service: No Current occupational status: retired Cognitive needs: No Hearing needs: No Vision needs: Yes Review of Systems Const All systems reviewed & are unremarkable except as noted in HPI and below Eyes Reports no additional complaints ENT Reports no additional complaints Card Denies chest pain, Denies irregular heart rhythm and Denies leg edema Resp Reports as per HPI GI Reports no additional complaints Reports no additional complaints Musc Reports no additional complaints Skin/Breast Reports system reviewed and no additional complaints, except as documented Neuro Reports no additional complaints Psych Reports no additional complaints Physical Exam Vital Signs: Last Vital Signs Pulse 79 01/18/24 10:06 BP 122/70 01/18/24 10:06 Pulse Ox 98 01/18/24 10:06 Oxygen Delivery Method Room Air 01/18/24 10:06 BMI result Body Mass Index 32.1 Const General: comfortable, no acute distress, alert and awake Orientation/consciousness: patient oriented x3 HEENT Head: Yes normal to inspection General nose exam: No nasal polyps present and No nasal discharge present Face and sinus: Yes sinuses nontender Mouth: oropharynx normal Throat: Yes posterior oropharynx normal Eyes General: appearance normal, both eyes and all related structures Neck Neck: Yes normal visual inspection, Yes no lymphadenopathy, Yes trachea midline and Yes no JVD Thyroid: Thyroid normal Chest Chest palpation & inspection: normal inspection of the chest, normal palpation of entire chest wall and no tenderness Resp Other: Percussion note resonant, breath sounds are equal on both sides slightly diminished over the basilar areas. He has no audible wheezes rhonchi or crepitations . Cardio Palpation: PMI not normal (Not palpable) Rate: regular rate Rhythm: regular rhythm Heart sounds: no gallops and no murmurs GI Other: Abdomen is protuberant. Has permanent colostomy. There is ventral herniation around the colostomy stoma in Rt. upper quadrant . Palpation (GI): Soft to palpation, nontender and No hepatosplenomegaly present Auscultation: normal bowel sounds Back/Spine/Pelvis Thoracic/Lumbar Spine: thoracic and lumbar spine normal to inspection Skin General skin exam: no rashes or lesions noted Neuro General: patient oriented x3 and no focal motor deficits Cranial nerves: Yes CN's II-XII intact bilaterally Extrem General: Yes normal to inspection, Yes no clubbing, cyanosis or edema, Yes no calf tenderness and Yes venous stasis dermatitis Psych Speech and movement: Normal speech and movement present Office Procedures Spirometry Testing Spirometry Comments: Spirometry done in the office, Dr. Johansen has the results results scanned to his chart. [id number]- Spirometry Results Reviewed Results Reviewed: I WALKED WITH HIM FOR 4-5 MINUTES IN THE HALLWAY. O2 SAT AT REST 98%, DURING AND AFTER THE WALK 96%. SPIROMETRY 01/17/23 01/18/24 FVC 46 39 FEV1 41 40 FEF 25-75 29 45 Assessment & Plan Assessment & Plan (1) Diaphragmatic eventration: Comment: HE HAS CHRONICALLY ELEVATED RIGHT HEMIDIAPHRAGM, TO MID CHEST. RESULTING IN SIGNIFICANT RESTRICTIVE PULMONARY DISORDER. Code(s): Q79.1 - Other congenital malformations of diaphragm Plan: IT IS SAME BEFORE, (2) Restrictive lung disease: Comment: SPIROMETRY CONFIRMS MODERATELY SEVERE RESTRICTIVE PULMONARY DISORDER. THIS IS DUE TO HIS OBESITY ESPECIALLY THE ABDOMINAL OBESITY AND CHRONICALLY ELEVATED RIGHT HEMIDIAPHRAGM. Code(s): J98.4 - Other disorders of lung Plan: KEEP ON DOING DEEP BREATHING EXERCISES ABOUT 3 TIMES A DAY. I DO NOT THINK USING ANY BRONCHODILATORS WILL BE OF MUCH HELP FOR HIM. (3) Dyspnea on exertion: Comment: DYSPNEA ON EXERTION IS WHEN HE CLIMBS A FEW FLIGHTS OF STAIRS, NOT AT REST. IT IS SECONDARY TO MODERATE DEGREE OF RESTRICTIVE PULMONARY DISORDER. Code(s): R06.00 - Dyspnea, unspecified Plan: AGAIN ADVISED TO DO DEEP BREATHING EXERCISES, AT LEAST 3 TIMES A DAY, INCENTIVE SPIROMETRY DEVICE GIVEN. FROM THE OFFICE. HE WOULD NOT BENEFIT FROM THE USE OF ANY BRONCHODILATOR AGENTS. Orders: Orders AMB Spirometry Testing Today J98.4 - Other disorders of lung Coding Level of Care Code Est Pt Level 3 (41468) Diagnoses Diaphragmatic eventration Q79.1 Restrictive lung disease J98.4 Dyspnea on exertion R06.00 CPT Codes Spirometry - CPT: 45090- Spirometry ([id number])
[2024-01-18 10:06] VITALS: BP 122/70; PULSE 79; O2SAT 98; BMI 32.1
== END 2024-01-18 10:47 | disposition home or self-care (01) ==
PROVIDERS: PCP Internal Medicine; Visit Provider Internal Medicine
DX: Q79.1 Other congenital malformations of diaphragm (principal); J98.4 Other disorders of lung; R06.00 Dyspnea, unspecified
CPT/HCPCS: 94010; 99213

== ENCOUNTER 2024-01-18 09:48 | Outpatient (REF) | payer BC, SELFPAY ==
[2024-01-18 11:05] LABS: MANUAL DIFF FLAG NO
[2024-01-18 11:16] LABS: Basophils Percent Auto 0.7 % (0-2); Eosinophils Absolute Auto 0.1 X10*3/uL (0.0-0.4); Eosinophils Percent Auto 1.5 % (0-4); Hematocrit 40.5 % (42.0-52.0); Hemoglobin 13.6 g/dl (14.0-18.0); Imm Gran Abs Auto 0.04 X10*3/uL (0.00-0.03); Imm Gran Pct Auto 0.7 % (0.0-0.4); Lymphocytes Absolute Auto 1.4 X10*3/uL (1.2-4.9); Lymphocytes Percent Auto 22.8 % (20-40); Mean Corpuscular HGB Conc 33.6 g/dl (31.0-36.0); Mean Corpuscular Hemoglobin 33.6 pg (27.0-33.0); Mean Platelet Volume 9.5 fL (9.4-12.4); Monocytes Absolute Auto 0.7 X10*3/uL (0.1-1.2); Monocytes Percent Auto 11.4 % (2-11); Neutrophils Absolute Auto 3.9 x10*3/uL (2.0-8.3); Neutrophils Percent Auto 62.9 % (45-73); Platelet Count 140 X10*3/uL (160-400); Red Blood Count 4.05 X10*6/uL (4.60-5.80); Red Cell Distribution Width 14.6 % (11.0-16.0); White Blood Count 6.1 X10*3/uL (4.8-10.8)
[2024-01-18 11:47] LABS: Alanine Aminotransferase 42 U/L (0-40); Alkaline Phosphatase 58 U/L (39-117); Anion Gap 9 (12-20); Aspartate Amino Transferase 36 U/L (5-37); Bilirubin Total 1.1 mg/dL (0.0-1.0); Blood Urea Nitrogen 13 mg/dL (9-16); Calcium 9.9 mg/dL (8.4-10.2); Carbon Dioxide 27 mmol/L (22-29); Chloride 106 mmol/L (96-108); Estimated Glomerular Filt Rate 53; Glucose Random 91 mg/dL (60-115); Magnesium 1.9 mg/dL (1.6-2.6); Phosphorus 3.4 mg/dL (2.7-4.5); Potassium 4.6 mmol/L (3.3-5.1); Sodium 137 mmol/L (135-145); Total Protein 7.2 g/dL (6.5-8.0)
== END 2024-01-18 09:49 | disposition home or self-care (01) ==
LOC: HO.LAB 09:48
PROVIDERS: PCP Internal Medicine; Visit Provider Internal Medicine
DX: I48.92 Unspecified atrial flutter (principal); Q79.1 Other congenital malformations of diaphragm; J98.4 Other disorders of lung; R06.00 Dyspnea, unspecified
CPT/HCPCS: 36415; 80053; 83735; 84100; 85025; 94010

== ENCOUNTER 2024-01-30 13:37 | Outpatient (AMB) | payer BC, SELFPAY ==
[2024-01-30 13:58] VITALS: BP 162/82; PULSE 88; O2SAT 98; BMI 31.7
--- NOTE | 2024-01-30 13:58 | A.OFFPC_ITS ---
Vital Signs 01/30/24 13:58 Height 6 ft 1 in Weight 240 lb BMI 31.7 BP 162/82 H Blood Pressure Location Lt brachial Position Sitting Pulse 88 Pulse Source Pulse Oximeter Pulse Oximetry (%) 98 Oxygen Delivery Method Room Air Intake Visit Reasons: A fib Allergies No Known Allergies Allergy (Verified 01/30/24 13:58) Tobacco use date assessed: 10/30/23 Fall risk assessment: No Falls in past year Last assessed Fall Risk: 01/30/24 Dental Screening Dental Screen Date: 01/30/24 Did you have a dental visit in the last 12 months?: No Did you have a dental problem in the last 6 months where you did not have access to dental care?: No Was dental information given to patient?: Patient has dentist HPI A fib HPI Details 73-year-old obese male with gout BPH hyp ertension nephrolithiasis cholelithiasis hypercholesterolemia atrial fibrillation peripheral vascular disease last seen in October 2023. 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 Advised incentive spirometry as well as deep breathing exercises.. Patient also follows up with Nephrology for multiple renal stones normal renal function has had diarrhea with poor p.o. intake advised low-sodium diet increase fluids concern about hyperkalemia was given potassium citrate will monitor.. Patient has also seen urology terazosin and finasteride prescribed as for Cardiology with a persistent atrial flutter has hemophilia and not on anticoagulation. Only on low-dose aspirin presently on aspirin only was advised about the watchman's device due to not being able to anticoagulate. will see Dr. Leslie for possible watchmans end of January. 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 Lymphangitis Edema of lower extremity Parastomal hernia Obesity (BMI 30-39.9) Nocturnal hypoxemia Restrictive lung disease Essential hypertension Atrial arrhythmia Hemophilia Loja cyst Renal stones History of cataract BPH (benign prostatic hyperplasia) Gout Crohn's disease Peripheral vascular disease Thrombocytopenia History of hepatitis C Cholelithiasis Osteopenia Surgical History S/P colectomy Status post ablation of incompetent vein using laser (01/13/23) H/O tooth extraction History of appendectomy History of urethral stent History of cataract surgery H/O wrist surgery Family History Father Prostate cancer Mother Diabetes Maternal Grandfather Factor VIII deficiency hemophilia Social History Household Members: Spouse Household Members Other:: 1 Housing: House Are you a primary health care legal assistant to a significant other at home: No Do you presently have visiting nurse or other home services: No Alcohol intake: current Alcohol intake frequency: 3 or more drinks per day Alcohol type: beer Comment: once a month 3 beers Patient Tobacco Use Status: Never used Tobacco e-Cigarette/Vaping Use: Never Used Second Hand Smoke Exposure: No service: No Current occupational status: retired Cognitive needs: No Hearing needs: No Vision needs: Yes Questionnaire PHQ-9 Over the last 2 weeks, how often have you been bothered by any of the following problems? 1. Little interest or pleasure in doing things: not at all 2. Feeling down, depressed, or hopeless: not at all 3. Trouble falling or staying asleep, or sleeping too much: not at all 4. Feeling tired or having little energy: not at all 5. Poor appetite or overeating: not at all 6. Feeling bad about yourself - or that you are a failure or have let yourself or your family down: not at all 7. Trouble concentrating on things, such as reading the newspaper or watching television: not at all 8. Moving or speaking so slowly that other people could have noticed. Or the opposite - being so fidgety or restless that you have been moving around a lot more than usual: not at all 9. Thoughts that you would be better off or of hurting yourself in some way: not at all Total score: 0 Depression Screening Interpretation: Negative Depression Screening Done: Yes Source: Developed by Drs. Rowdy Lugo, Georgie Braun, Willie Stevenson and colleagues, with an educational trinidad from [employer]. Thrive Questionnaire Date Thrive assessed: 10/30/23 AUDIT C Alcohol Use Questionnaire (AUDIT-C) 1. How often do you have a drink containing alcohol?: Monthly or less 2. How many drinks containing alcohol do you have on a typical day when you are drinking?: 1 or 2 3. How often do you have six or more drinks on one occasion?: Never Total Score: 1 MARISOL-7 AMB Questionnaire MARISOL-7 Date MARISOL - 7 assessed: 10/30/23 Source: Developed by Drs. Rowdy Lugo, Georgie Braun, Willie Stevenson and colleagues, with an educational trinidad from [employer]. Physical exam (Primary Care) Vital Signs: Last Vital Signs Pulse 88 01/30/24 13:58 BP 162/82 H 01/30/24 13:58 Pulse Ox 98 01/30/24 13:58 Oxygen Delivery Method Room Air 01/30/24 13:58 BMI result Body Mass Index 31.7 Tobacco/Smoking Status: Tobacco use Status Tobacco use date assessed 10/30/23 01/30/24 13:59 Patient Tobacco Use Status Never used Tobacco 01/30/24 13:59 e-Cigarette/Vaping Use Never Used 01/30/24 13:59 PHQ-9: PHQ-9 Score PHQ-9: Total score 0 01/30/24 13:59 Depression Screening Interpretation: Negative Thrive Assessment: Date of Thrive Assessment Date Thrive assessed 10/30/23 01/30/24 13:59 Const General: alert; No acute distress Eyes Conjunctivae: conjunctivae normal Resp Auscultation: clear to auscultation bilaterally Cardio Rate: regular rate Rhythm: regular rhythm GI Inspection: Yes normal to inspection Extrem General: Yes normal to inspection and No edema Assessment and Plan Assessment & Plan (1) Atrial fibrillation: Code(s): I48.91 - Unspecified atrial fibrillation Plan: Patient being followed up by Cardiology and because the patient can not be anticoagulated due to the history of hemophilia was advised atrial appendage closure with a watchman's device (2) Diaphragmatic eventration: Comment: HE HAS CHRONICALLY ELEVATED RIGHT HEMIDIAPHRAGM, TO MID CHEST. RESULTING IN SIGNIFICANT RESTRICTIVE PULMONARY DISORDER. Code(s): Q79.1 - Other congenital malformations of diaphragm Plan: This has resulted in problems with restrictive lung disease. (3) Hypercholesteremia: Code(s): E78.00 - Pure hypercholesterolemia, unspecified Plan: Avoid fried foods, chicken skin, eggs, butter margarine, pastries and meat. Be it pork or beef they have a lot of cholesterol LDL goal of less than 70 and triglyceride of less than 150. On simvastatin 5 mg once a day (4) Essential hypertension: Code(s): I10 - Essential (primary) hypertension Plan: Continue with blood pressure medication. Decrease salt intake and exercise takes metoprolol 50 mg twice a day (5) Obesity (BMI 30-39.9): Comment: PATIENT IS MODERATELY OBESE THERE HAS BEEN NO RECENT INCREASE IN HIS WEIGHT. I MADE HIM AWARE THAT HE SHOULD LOSE ABOUT 10 LB OF WEIGHT Code(s): E66.9 - Obesity, unspecified Plan: Diet and exercise (6) Posterior neck pain: Code(s): M54.2 - Cervicalgia Orders: Orders Comprehensive Met. Panel 3 Months E78.00 - Pure hypercholesterolemia, unspecified Lipid Panel 3 Months E78.00 - Pure hypercholesterolemia, unspecified Thyroid Stimulating Hormone 3 Months E78.00 - Pure hypercholesterolemia, unspecified Free T4 (Free Thyroxine) 3 Months E78.00 - Pure hypercholesterolemia, unspecified Complete Blood Count Auto Diff 3 Months E78.00 - Pure hypercholesterolemia, unspecified Vitamin B12 and Folate 3 Months E78.00 - Pure hypercholesterolemia, unspecified XR cervical spine 2V Today M54.2 - Cervicalgia Medications: New meloxicam 7.5 mg PO DAILY 30 tabs 0RF M54.2 - Cervicalgia Coding Level of Care Code Est Pt Level 4 (07878) Diagnoses Atrial fibrillation I48.91 Diaphragmatic eventration Q79.1 Hypercholesteremia E78.00 Essential hypertension I10 Obesity (BMI 30-39.9) E66.9 Posterior neck pain M54.2
== END 2024-01-30 14:44 | disposition home or self-care (01) ==
PROVIDERS: PCP Internal Medicine; Visit Provider Internal Medicine
DX: I48.91 Unspecified atrial fibrillation (principal); Q79.1 Other congenital malformations of diaphragm; Z68.31 Body mass index [BMI] 31.0-31.9, adult; E66.9 Obesity, unspecified; E78.00 Pure hypercholesterolemia, unspecified; I10 Essential (primary) hypertension; M54.2 Cervicalgia
CPT/HCPCS: 99214

== ENCOUNTER 2024-03-01 09:12 | Outpatient (AMB) | payer BC, SELFPAY ==
--- NOTE | 2024-03-01 09:13 | MHC.OFFVIS ---
Intake Visit Reasons: 2M Med Review(Terazosin,Finasteride) Intake Note: Patient is Present for Telephone Follow Up Urology Med: Terazosin, Finasteride, Vitamin B6 Antibiotic Allergy: None Blood Thinner: Aspirin Allergies No Known Allergies Allergy (Verified 03/01/24 09:14) Medication List - Last Reconciled 03/01/24 by Armani Rose MD aspirin 81 mg PO DAILY calcium carbonate-vitamin D3 600 mg-5 mcg (200 unit) (Calcium 600 + D(3)) 1 tab PO DAILY cyanocobalamin (vitamin B-12) 250 mcg PO DAILY finasteride 5 mg PO DAILY 90 days meloxicam 7.5 mg PO DAILY metoprolol tartrate 50 mg PO BID 90 days nystatin 1 appl topical DAILY PRN potassium citrate ER 20 mEq PO DAILY pyridoxine (vitamin B6) 100 mg PO DAILY 90 days simvastatin 5 mg PO BEDTIME terazosin 5 mg PO BEDTIME 90 days HPI Comments Details: Dirk is very pleasant male. He is a patient of Dr. Parikh. He seen for the following urologic conditions - renal stones - lower urinary tract symptoms Telemedicine Evaluation 15 min Consultation Kiyon Grayson Video attempted Follow-up Trial terazosin 5 mg Also on finasteride Reviewed renal ultrasound Repeat ultrasound shows decrease in stone burden on left side Continue potassium citrate Last PSA 12/22 1.6 - own and he is repeating every 2 years Lower urinary tract symptoms Initial symptom presentation - Nocturia x3, Weakness of stream, Progressive Prior medications include tamsulosin Finasteride plus terazosin 5 mg Nephrolithiasis/Urolithiasis: Secondary to Crohn's Remain on potassium citrate with vitamin B6 They are here for further evaluation of nephrolithiasis. Urolithiasis was diagnosed [facility] [place] 03/10[place]19 with right flank pain. The patient previously had kidney stones whose composition w 10/21 uric acid 80% CaOx 20%. Laboratory investigations include 11/21 , Hyperuricemia, borderline high calcium. Prior treatment(s) include Typically has had stones every 15-20 years starting in early 1970s 10/21 , right, ureteroscopy - distal. Prior imaging includes 03/20 , a CT (computed tomography) scan of the abdomen/pelvis (stone protocol) - multiple 2 mm stones on right side, distal right ureteric stone with hydroureteronephrosis, left 2-3 cm cyst 04/19 , a renal ultrasound, showing no evidence of stones - left 2-3 cm cyst, prostate 70 g 09/19 , a CT (computed tomography) scan of the abdomen/pelvis (stone protocol) - 5mm distal right stone with mild hydro 10/21 multiple right 5mm stones on US - 09/20 multiple right stones on ultrasound - 04/21 renal u/s minimal stone on right, left clear - 11/23 renal ultrasound no evidence of renal stones, hepatic steatosis - 05/23 renal ultrasound 9 mm right, 4 mm left, cyst on left kidney - 09/23 CT scan with multiple stones bilateral - 12/23 renal ultrasound shows resolution of stones on left side Current therapeutic plan - continue with fluid intake [facility] Medical History (Updated 04/19/24 @ 14:52 by Jennifer Parikh MD) Hemophilia A Dyspnea on exertion Screening PSA (prostate specific antigen) Weakness Atrial flutter with rapid ventricular response LACY (acute kidney injury) Atrial fibrillation with rapid ventricular response Diaphragmatic eventration Back pain Bilateral kidney stones Ileostomy in place Lymphangitis Edema of lower extremity Parastomal hernia Obesity (BMI 30-39.9) Nocturnal hypoxemia Restrictive lung disease Essential hypertension Atrial arrhythmia Hemophilia Loja cyst Renal stones History of cataract BPH (benign prostatic hyperplasia) Gout Crohn's disease Peripheral vascular disease Thrombocytopenia History of hepatitis C Cholelithiasis Osteopenia Surgical History S/P colectomy Status post ablation of incompetent vein using laser (01/13/23) H/O tooth extraction History of appendectomy History of urethral stent History of cataract surgery H/O wrist surgery Family History Father Prostate cancer Mother Diabetes Maternal Grandfather Factor VIII deficiency hemophilia Social History Household Members: Spouse Household Members Other:: 1 Housing: House Are you a primary healthcare facility administrator to a significant other at home: No Do you presently have visiting nurse or other home services: No Alcohol intake: current Alcohol intake frequency: 3 or more drinks per day Alcohol type: beer Comment: once a month 3 beers Patient Tobacco Use Status: Never used Tobacco e-Cigarette/Vaping Use: Never Used Second Hand Smoke Exposure: No service: No Current occupational status: retired Cognitive needs: No Hearing needs: No Vision needs: Yes Review of Systems Const All systems reviewed & are unremarkable except as noted in HPI and below Reports no additional complaints Resp Reports no additional complaints GI Reports no additional complaints Reports as per HPI Musc Reports no additional complaints Physical Exam Telemedicine evaluation Appropriate responses Regular breathing rate and rhythm HEENT Head: Yes normal to inspection Ears: hearing grossly normal bilaterally Eyes General: appearance normal, both eyes and all related structures Neck Neck: Yes normal visual inspection Chest Chest palpation & inspection: normal inspection of the chest Resp Effort & Inspection: normal respiratory effort and able to speak in complete sentences Telehealth Telehealth Location of provider rendering services: practice address Location of patient: address on file Patient Identification confirmed using: Name, : Yes Telehealth method: voice only Patient verbally consented to treatment: Yes Patient verbally consented to billing insurance company: Yes Patient informed of any privacy concerns related to visit: Yes Assessment & Plan Assessment & Plan (1) Renal cyst, left: Code(s): N28.1 - Cyst of kidney, acquired Category: Medical (2) Renal stones: Comment: Right renal calculi December 2018 uric acid stone October 2019 stable 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 Code(s): N20.0 - Calculus of kidney Category: Medical Plan Six-month follow-up bladder ultrasound Orders: Orders US bladder 6 Months R39.12 - Poor urinary stream, N40.0 - Benign prostatic hyperplasia without lower urinary tract symptoms Medications: Changed From finasteride 5 mg PO DAILY 30 days 30 tabs 1RF N40.0 - Benign prostatic hyperplasia without lower urinary tract symptoms, N40.1 - Benign prostatic hyperplasia with lower urinary tract symptoms, R33.9 - Retention of urine, unspecified To finasteride 5 mg PO DAILY 90 tabs 1RF 90 days N40.0 - Benign prostatic hyperplasia without lower urinary tract symptoms, N40.1 - Benign prostatic hyperplasia with lower urinary tract symptoms, R33.9 - Retention of urine, unspecified From terazosin 5 mg PO BEDTIME 30 days 30 caps 1RF N40.0 - Benign prostatic hyperplasia without lower urinary tract symptoms, N40.1 - Benign prostatic hyperplasia with lower urinary tract symptoms, R35.0 - Frequency of micturition To terazosin 5 mg PO BEDTIME 90 caps 1RF 90 days N40.0 - Benign prostatic hyperplasia without lower urinary tract symptoms, N40.1 - Benign prostatic hyperplasia with lower urinary tract symptoms, R35.0 - Frequency of micturition Patient Instructions: Imaging studies, laboratory and physical exam results were discussed and reviewed in detail. No major barriers to patient understanding were identified. An opportunity to ask questions regarding the treatment plan was provided. All questions were answered. The patient expressed understanding and agreement with the above treatment plan. The patient is aware they should contact our office by phone for worsening of their current condition or the appearance of new urologic symptoms. Compliance is encouraged with any medications and followup testing that is ordered. It is a privilege to participate in the urologic care of your patient. If you have any questions or concerns regarding treatment for the above conditions, or other urologic issues, please do not hesitate to contact me. The office telephone contact is [phone]. This note is constructed using voice recognition software. While every effort has been made to ensure accuracy line controller errors may have been included. Yours sincerely, Dr Armani Rose MD, [facility] - Urology Providers of Expert, Compassionate Care for the Genitourinary System Coding Level of Care Code Tele Est Pt Level 3 (00746) Diagnoses Renal cyst, left N28.1 Renal stones N20.0
== END 2024-03-01 10:17 | disposition home or self-care (01) ==
LOC: HO.HUSH 09:12
PROVIDERS: PCP Internal Medicine; Visit Provider Urology
DX: N28.1 Cyst of kidney, acquired (principal); N20.0 Calculus of kidney
CPT/HCPCS: 99441

== ENCOUNTER → 2024-03-01 09:12 | Outpatient (BNVA) | payer BC, SELFPAY | PROVIDERS: PCP Internal Medicine; Visit Provider Urology ==

== ENCOUNTER 2024-05-21 09:50 | Outpatient (AMB) | payer MEDICARE, BC, SELFPAY ==
--- NOTE | 2024-05-21 09:54 | A.OFFVIS_ITS ---
Vital Signs 05/21/24 09:55 Height 6 ft 1 in Weight 235 lb 7.259 oz BMI 31.1 BP 120/60 Blood Pressure Location Lt brachial Position Sitting Pulse 72 Pulse Source Pulse Oximeter Intake Visit Reasons: f/up Dr Leslie [id number] Outcomes Specialist Required: No Accompanied by: Spouse Allergies No Known Allergies Allergy (Verified 03/01/24 09:14) Medication List - Last Reconciled 05/21/24 by Alex Dueñas MD aspirin 81 mg PO DAILY calcium carbonate-vitamin D3 600 mg-5 mcg (200 unit) (Calcium 600 + D(3)) 1 tab PO DAILY cyanocobalamin (vitamin B-12) 250 mcg PO DAILY finasteride 5 mg PO DAILY 90 days meloxicam 7.5 mg PO DAILY metoprolol tartrate 50 mg PO BID 90 days nystatin 1 appl topical DAILY PRN potassium citrate ER 20 mEq PO DAILY pyridoxine (vitamin B6) 100 mg PO DAILY 90 days simvastatin 5 mg PO BEDTIME terazosin 5 mg PO BEDTIME 90 days HPI Comments Details: Dirk returns for follow-up regarding atrial arrhythmias. He was seen in the past due to irregular heart rhythm/frequent atrial ectopy. In August 2023, he was admitted to the hospital with acute renal failure. His creatinine was almost 10. [place] to be from diarrhea/dehydration in setting of Crohn's disease. Since that time, he has been having persistent atrial flutter. Describes some shortness of breath with activity. He also has hemophilia and hence not on any anticoagulation due to concern for bleeding risk. Remains on low-dose aspirin. Recently, he was referred to EP. Plan for atrial flutter/fibrillation ablation in the coming days. No new issues. [facility] Medical History (Updated 04/19/24 @ 14:52 by Jennifer Parikh MD) Hemophilia A Dyspnea on exertion Screening PSA (prostate specific antigen) Weakness Atrial flutter with rapid ventricular response LACY (acute kidney injury) Atrial fibrillation with rapid ventricular response Diaphragmatic eventration Back pain Bilateral kidney stones Ileostomy in place Lymphangitis Edema of lower extremity Parastomal hernia Obesity (BMI 30-39.9) Nocturnal hypoxemia Restrictive lung disease Essential hypertension Atrial arrhythmia Hemophilia Loja cyst Renal stones History of cataract BPH (benign prostatic hyperplasia) Gout Crohn's disease Peripheral vascular disease Thrombocytopenia History of hepatitis C Cholelithiasis Osteopenia Surgical History S/P colectomy Status post ablation of incompetent vein using laser (01/13/23) H/O tooth extraction History of appendectomy History of urethral stent History of cataract surgery H/O wrist surgery Family History Father Prostate cancer Mother Diabetes Maternal Grandfather Factor VIII deficiency hemophilia Social History Household Members: Spouse Household Members Other:: 1 Housing: House Are you a primary hospice spiritual care coordinator to a significant other at home: No Do you presently have visiting nurse or other home services: No Alcohol intake: current Alcohol intake frequency: 3 or more drinks per day Alcohol type: beer Comment: once a month 3 beers Patient Tobacco Use Status: Never used Tobacco e-Cigarette/Vaping Use: Never Used Second Hand Smoke Exposure: No service: No Current occupational status: retired Cognitive needs: No Hearing needs: No Vision needs: Yes Review of Systems Const Denies chills, Denies fatigue, Denies fever(s), Denies weight gain and Denies weight loss ENT Denies dizziness Card Denies chest pain, Denies leg edema, Denies lightheadedness, Denies palpitations, Reports dyspnea on exertion, Denies orthopnea and Denies other Resp Denies cough and Reports dyspnea on exertion GI Denies hematochezia and Denies change in stool character Musc Denies abnormal gait, Denies muscle weakness, Denies numbness, Denies radiating pain into limb and Denies tingling Neuro Denies abnormal gait, Denies dizziness, Denies numbness and Denies tingling Endo Denies fatigue and Denies palpitations Physical Exam Vital Signs: Last Vital Signs Pulse 72 05/21/24 09:55 BP 120/60 05/21/24 09:55 BMI result Body Mass Index 31.1 Const General: comfortable and no acute distress Orientation/consciousness: patient oriented x3 HEENT Other: Unremarkable Head: Yes normal to inspection Neck Neck: Yes normal visual inspection Chest Chest palpation & inspection: normal inspection of the chest Resp Auscultation: clear to auscultation bilaterally Cardio Palpation: normal PMI Heart sounds: S1 normal heart sound present, S2 normal heart sound present, no gallops, no murmurs and no rubs GI Palpation (GI): Soft to palpation Back/Spine/Pelvis Other: unremarkable Skin General skin exam: no rashes or lesions noted Neuro General: patient oriented x3 Extrem General: Yes normal to inspection Psych Mental Status: mental status grossly normal Office Procedures EKG Details: EKG with underlying sinus rhythm at 64/Min; no significant ST-T changes and otherwise unremarkable. [place] [id number], Complete Assessment & Plan Assessment & Plan (1) Atrial flutter with rapid ventricular response: Code(s): I48.92 - Unspecified atrial flutter Category: Medical Plan: He used to have very high degree of atrial ectopy, as much as 41% in the previous Holter. In the recent Holter, reported as atrial fibrillation but the strips rather show mainly flutter throughout with an average rate of 85/min. Today, he is in sinus rhythm by EKG. LVEF is preserved on the echocardiogram at 65-70%. Currently, he remains on beta-blockers. 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 On aspirin only. Has been seen by EP. Plan for atrial flutter/fibrillation ablation. Message sent regarding him being in sinus rhythm. Unclear if that changes plan, but will discussed with EP. He has also had sleep studies but no clear evidence of REGINO. (2) Essential hypertension: Code(s): I10 - Essential (primary) hypertension Category: Medical Plan: Off lisinopril. Of note, recent admission for acute renal failure but that improved. Creatinine was as much as 9.7 but most recently 1.3. Plan Discussed with significant other who came for appointment. Coding Level of Care Code Est Pt Level 4 (87342) Diagnoses Atrial flutter with rapid ventricular response I48.92 Essential hypertension I10 CPT Codes EKG - CPT: 47876-[id number], Complete ([id number])
[2024-05-21 09:55] VITALS: BP 120/60; PULSE 72; BMI 31.1
== END 2024-05-21 10:20 | disposition home or self-care (01) ==
PROVIDERS: PCP Internal Medicine; Visit Provider Internal Medicine
DX: I48.92 Unspecified atrial flutter (principal); I10 Essential (primary) hypertension
CPT/HCPCS: 93010; 99214

== ENCOUNTER → 2024-05-21 09:50 | Outpatient (BNVA) | payer BC, SELFPAY | PROVIDERS: PCP Internal Medicine; Visit Provider Internal Medicine | DX: I48.92 Unspecified atrial flutter (principal); I10 Essential (primary) hypertension; Z79.82 Long term (current) use of aspirin; Z79.899 Other long term (current) drug therapy | CPT/HCPCS: 93005; 99212 ==

== ENCOUNTER 2024-06-11 09:41 | Outpatient (REF) | payer MEDICARE, BC, SELFPAY ==
[2024-06-11 09:54] LABS: MANUAL DIFF FLAG NO
[2024-06-11 10:56] LABS: Basophils Percent Auto 0.8 % (0-2); Eosinophils Absolute Auto 0.1 X10*3/uL (0.0-0.4); Eosinophils Percent Auto 1.5 % (0-4); Hematocrit 38.1 % (42.0-52.0); Imm Gran Abs Auto 0.05 X10*3/uL (0.00-0.03); Lymphocytes Absolute Auto 1.3 X10*3/uL (1.2-4.9); Lymphocytes Percent Auto 25.5 % (20-40); Mean Corpuscular HGB Conc 34.1 g/dl (31.0-36.0); Mean Corpuscular Hemoglobin 35.7 pg (27.0-33.0); Mean Corpuscular Volume 104.7 fL (80.0-98.0); Mean Platelet Volume 9.6 fL (9.4-12.4); Monocytes Absolute Auto 0.5 X10*3/uL (0.1-1.2); Monocytes Percent Auto 9.7 % (2-11); Neutrophils Absolute Auto 3.2 x10*3/uL (2.0-8.3); Neutrophils Percent Auto 61.5 % (45-73); Platelet Count 142 X10*3/uL (160-400); Red Blood Count 3.64 X10*6/uL (4.60-5.80); Red Cell Distribution Width 13.7 % (11.0-16.0); White Blood Count 5.3 X10*3/uL (4.8-10.8)
[2024-06-11 12:09] LABS: Folate 2.5 ng/mL (> or = 4.0); Vitamin B12 520 pg/mL (200-900)
[2024-06-11 12:13] LABS: Alanine Aminotransferase 25 U/L (0-40); Alkaline Phosphatase 46 U/L (39-117); Anion Gap 14 (12-20); Aspartate Amino Transferase 26 U/L (5-37); Blood Urea Nitrogen 16 mg/dL (9-16); Calcium 9.6 mg/dL (8.4-10.2); Carbon Dioxide 23 mmol/L (22-29); Chloride 102 mmol/L (96-108); Cholesterol 163 mg/dL (<200); Estimated Glomerular Filt Rate 52; Glucose Random 84 mg/dL (60-115); HDL Cholesterol 102 mg/dL (>40); LDL Cholesterol Calculated 43 mg/dL (<100); Potassium 4.5 mmol/L (3.3-5.1); Sodium 134 mmol/L (135-145); Triglycerides 91 mg/dL (<150)
[2024-06-11 12:16] LABS: Free T4 (Free Thyroxine) 1.05 ng/dL (0.71-1.85); Thyroid Stimulating Hormone 1.67 uIU/mL (0.32-4.0)
== END 2024-06-11 09:42 | disposition home or self-care (01) ==
LOC: HO.LAB 09:41
PROVIDERS: PCP Internal Medicine; Visit Provider Internal Medicine
DX: E78.00 Pure hypercholesterolemia, unspecified (principal)
CPT/HCPCS: 36415; 80053; 80061; 82607; 82746; 84439; 84443; 85025

== ENCOUNTER 2024-06-18 09:28 | Outpatient (AMB) | payer MEDICARE, BC, SELFPAY ==
[2024-06-18 09:34] VITALS: BP 122/62; PULSE 66; O2SAT 97; BMI 31.0
--- NOTE | 2024-06-18 09:34 | A.OFFPC_ITS ---
Vital Signs 06/18/24 09:34 Height 6 ft 1 in Weight 235 lb BMI 31.0 BP 122/62 Blood Pressure Location Lt brachial Position Sitting Pulse 66 Pulse Source Pulse Oximeter Pulse Oximetry (%) 97 Oxygen Delivery Method Room Air Intake Visit Reasons: HTN, A flutter, diaphragmatic elevation Business Process Modeler Required: No Accompanied by: Self / Same As Patient Allergies No Known Allergies Allergy (Verified 06/18/24 09:34) Tobacco use date assessed: 10/30/23 Fall risk assessment: 2 + Falls in past year Last assessed Fall Risk: 06/18/24 Dental Screening Dental Screen Date: 01/30/24 HPI HTN, A flutter, diaphragmatic elevation HPI Details 73-year-old obese male with atrial fibri llation hypercholesterolemia hypertension coming in for follow-up. Last seen in December. Patient has a history of Crohn's disease and had colectomy. 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 On a aspirin planned ablation. Echocardiogram reveals EF of 65-70% patient on beta blockers. Lisinopril Was discontinued. Patient did see Dr. Leslie option of left atrial appendage occlusion with watchman's device but because of the chads Vasc 2 potential risk for device related thrombosis outweighs the benefit. Advised also ablation patient was also seen by the Urology in May 24 on terazosin, finasteride and vitamin B6 patient has surveillance ultrasounds. 05/[address] Leslie will be having a CT scan and blood work but got frustrated and just cancelled due to answeing with no response. states leaning over makes him sob. [facility] Medical History (Updated 06/18/24 @ 10:15 by Jennifer Parikh MD) Hemophilia A Dyspnea on exertion Screening PSA (prostate specific antigen) Weakness Atrial flutter with rapid ventricular response LACY (acute kidney injury) Atrial fibrillation with rapid ventricular response Diaphragmatic eventration Back pain Bilateral kidney stones Ileostomy in place Lymphangitis Edema of lower extremity Parastomal hernia Obesity (BMI 30-39.9) Nocturnal hypoxemia Restrictive lung disease Essential hypertension Atrial arrhythmia Hemophilia Loja cyst Renal stones History of cataract BPH (benign prostatic hyperplasia) Gout Crohn's disease Peripheral vascular disease Thrombocytopenia History of hepatitis C Cholelithiasis Osteopenia Surgical History S/P colectomy Status post ablation of incompetent vein using laser (01/13/23) H/O tooth extraction History of appendectomy History of urethral stent History of cataract surgery H/O wrist surgery Family History Father Prostate cancer Mother Diabetes Maternal Grandfather Factor VIII deficiency hemophilia Social History Household Members: Spouse Household Members Other:: 1 Housing: House Are you a primary day care assistant to a significant other at home: No Do you presently have visiting nurse or other home services: No Alcohol intake: current Alcohol intake frequency: 3 or more drinks per day Alcohol type: beer Comment: once a month 3 beers Patient Tobacco Use Status: Never used Tobacco Tobacco use type: Cigarette e-Cigarette/Vaping Use: Never Used Second Hand Smoke Exposure: No service: No Current occupational status: retired Cognitive needs: No Hearing needs: No Vision needs: Yes Questionnaire PHQ-9 Over the last 2 weeks, how often have you been bothered by any of the following problems? 1. Little interest or pleasure in doing things: not at all 2. Feeling down, depressed, or hopeless: not at all 3. Trouble falling or staying asleep, or sleeping too much: not at all 4. Feeling tired or having little energy: not at all 5. Poor appetite or overeating: not at all 6. Feeling bad about yourself - or that you are a failure or have let yourself or your family down: not at all 7. Trouble concentrating on things, such as reading the newspaper or watching television: not at all 8. Moving or speaking so slowly that other people could have noticed. Or the opposite - being so fidgety or restless that you have been moving around a lot more than usual: not at all 9. Thoughts that you would be better off or of hurting yourself in some way: not at all Total score: 0 Depression Screening Interpretation: Negative Depression Screening Done: Yes Source: Developed by Drs. Rowdy Lugo, Georgie Braun, Willie Stevenson and colleagues, with an educational trinidad from [employer]. Thrive Questionnaire Date Thrive assessed: 10/30/23 Are you currently unemployed and looking for a job?: No AUDIT C Alcohol Use Questionnaire (AUDIT-C) 1. How often do you have a drink containing alcohol?: Monthly or less 2. How many drinks containing alcohol do you have on a typical day when you are drinking?: 1 or 2 3. How often do you have six or more drinks on one occasion?: Never Total Score: 1 MARISOL-7 AMB Questionnaire MARISOL-7 Date MARISOL - 7 assessed: 10/30/23 Source: Developed by Drs. Rowdy Lugo, Georgie Braun, Willie Stevenson and colleagues, with an educational trinidad from [employer]. Physical exam (Primary Care) Vital Signs: Last Vital Signs Pulse 66 06/18/24 09:34 BP 122/62 06/18/24 09:34 Pulse Ox 97 06/18/24 09:34 Oxygen Delivery Method Room Air 06/18/24 09:34 BMI result Body Mass Index 31.0 Tobacco/Smoking Status: Tobacco use Status Tobacco use date assessed 10/30/23 06/18/24 09:39 Patient Tobacco Use Status Never used Tobacco 06/18/24 09:39 Tobacco use type Cigarette 06/18/24 09:39 e-Cigarette/Vaping Use Never Used 06/18/24 09:39 PHQ-9: PHQ-9 Score PHQ-9: Total score 0 06/18/24 09:39 Depression Screening Interpretation: Negative Thrive Assessment: Date of Thrive Assessment Date Thrive assessed 10/30/23 06/18/24 09:39 Const General: alert; No acute distress Eyes Conjunctivae: conjunctivae normal Resp Auscultation: clear to auscultation bilaterally Cardio Rate: regular rate Rhythm: regular rhythm GI Inspection: Yes normal to inspection Extrem Other: Plus two lower extremity edema General: Yes edema Assessment and Plan Assessment & Plan (1) Obesity (BMI 30-39.9): Comment: PATIENT IS MODERATELY OBESE THERE HAS BEEN NO RECENT INCREASE IN HIS WEIGHT. I MADE HIM AWARE THAT HE SHOULD LOSE ABOUT 10 LB OF WEIGHT Code(s): E66.9 - Obesity, unspecified Plan: Diet and exercise (2) Essential hypertension: Code(s): I10 - Essential (primary) hypertension Plan: Continue with blood pressure medication. 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 Patient follows up with urology (4) Hypercholesteremia: Code(s): E78.00 - Pure hypercholesterolemia, unspecified Plan: Avoid fried foods, chicken skin, eggs, butter margarine, pastries and meat. Be it pork or beef they have a lot of cholesterol LDL goal of less than 100 and triglyceride of less than 150. On simvastatin 5 mg at bedtime. (5) Atrial fibrillation: Code(s): I48.91 - Unspecified atrial fibrillation Plan: Patient is being followed up by Cardiology and has seen Dr. Leslie regarding options of watchman's device versus ablation. Concern on anticoagulation due to it being held due to the history of hemophilia. As post ablation will need anticoagulation for couple of months. 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 Medications: New sertraline 25 mg PO DAILY 30 tabs 2RF F41.1 - Generalized anxiety disorder Coding Level of Care Code Est Pt Level 4 (53553) Complex EM visit Add On G2211 Diagnoses Obesity (BMI 30-39.9) E66.9 Essential hypertension I10 Renal stones N20.0 Hypercholesteremia E78.00 Atrial fibrillation I48.91 Folic acid deficiency E53.8 Hemophilia A D66 Peripheral vascular disease I73.9 Generalized anxiety disorder F41.1
== END 2024-06-18 10:19 | disposition home or self-care (01) ==
PROVIDERS: PCP Internal Medicine; Visit Provider Internal Medicine
DX: E66.9 Obesity, unspecified (principal); I10 Essential (primary) hypertension; N20.0 Calculus of kidney; E78.00 Pure hypercholesterolemia, unspecified; I48.91 Unspecified atrial fibrillation; E53.8 Deficiency of other specified B group vitamins; D66 Hereditary factor VIII deficiency; I73.9 Peripheral vascular disease, unspecified; F41.1 Generalized anxiety disorder

== ENCOUNTER → 2024-06-18 09:28 | Outpatient (BNVA) | payer MEDICARE, BC, SELFPAY | PROVIDERS: PCP Internal Medicine; Visit Provider Internal Medicine | DX: E66.9 Obesity, unspecified (principal); I10 Essential (primary) hypertension; N20.0 Calculus of kidney; E78.00 Pure hypercholesterolemia, unspecified; I48.91 Unspecified atrial fibrillation; E53.8 Deficiency of other specified B group vitamins; D66 Hereditary factor VIII deficiency; I72.9 Aneurysm of unspecified site; F41.1 Generalized anxiety disorder | CPT/HCPCS: 99212 ==

== ENCOUNTER 2024-06-18 10:25 | Outpatient (REF) | payer MEDICARE, BC, SELFPAY ==
[2024-06-18 11:22] LABS: Anion Gap 16 (12-20); Blood Urea Nitrogen 13 mg/dL (9-16); Calcium 10.4 mg/dL (8.4-10.2); Carbon Dioxide 23 mmol/L (22-29); Chloride 101 mmol/L (96-108); Estimated Glomerular Filt Rate 45; Glucose Random 91 mg/dL (60-115); Potassium 5.5 mmol/L (3.3-5.1); Sodium 134 mmol/L (135-145)
== END 2024-06-18 10:26 | disposition home or self-care (01) ==
LOC: HO.10HDL 10:25
PROVIDERS: Visit Provider Internal Medicine Hypertension Specialist
DX: N20.0 Calculus of kidney (principal); I10 Essential (primary) hypertension; E78.00 Pure hypercholesterolemia, unspecified; I48.91 Unspecified atrial fibrillation
CPT/HCPCS: 36415; 80048; 99212

== ENCOUNTER 2024-06-24 11:06 | Outpatient (AMB) | payer MEDICARE, BC, SELFPAY ==
[2024-06-24 11:06] VITALS: BP 132/72; PULSE 101; O2SAT 97; BMI 30.7
--- NOTE | 2024-06-24 11:06 | HO.NEPHOV_ITS ---
Vital Signs 06/24/24 11:06 Height 6 ft 1 in Weight 233 lb BMI 30.7 BP 132/72 Blood Pressure Location Rt brachial Position Sitting Pulse 101 H Pulse Source Pulse Oximeter Pulse Oximetry (%) 97 Oxygen Delivery Method Room Air Intake Visit Reasons: 6 Months/ Conf Infection Control Coordinator Required: No Accompanied by: Spouse Allergies No Known Allergies Allergy (Verified 06/24/24 11:07) Medication List - Last Reconciled 06/24/24 by Ernst Rivera MD aspirin 81 mg PO DAILY calcium carbonate-vitamin D3 600 mg-5 mcg (200 unit) (Calcium 600 + D(3)) 1 tab PO DAILY cyanocobalamin (vitamin B-12) 250 mcg PO DAILY finasteride 5 mg PO DAILY 90 days folic acid 1 mg PO DAILY meloxicam 7.5 mg PO DAILY metoprolol tartrate 50 mg PO BID 90 days nystatin 1 appl topical DAILY PRN potassium citrate ER 20 mEq PO DAILY pyridoxine (vitamin B6) 100 mg PO DAILY 90 days sertraline 25 mg PO DAILY simvastatin 5 mg PO BEDTIME terazosin 5 mg PO BEDTIME 90 days HPI Comments Details: 73-year-old male with a?PVD, hx of SVT, hemophilia A, restrictive lung disease, BPH, atrial ectopy, and ileostomy in the setting of Crohn's History of multiple renal stones. Status post stent placement Essentially normal renal function at baseline. He was admitted in Aug 2023 with LACY. Creatinine peaked at 9.7 mg/dL. Prior to the admission he had significant diarrhea and p.o. intake was poor. He has a history of nephrolithiasis He has multiple renal stones. CT scan at the time of admission showed multiple multiple calculi without any obstruction. During the hospital course renal functions improved with IV hydration. He did not require hemodialysis. He also had severe acidosis at time admission which promptly resolved. 06/24/24 c/o dyspnea on exertion HAs edema Not on diuretics Takes Miloxicam 7.5 mg BID REcent K was 5.5 and Cr bumped up to 1.54 [facility] Medical History (Updated 06/24/24 @ 11:19 by Ernst Rivera MD) Hemophilia A Dyspnea on exertion Screening PSA (prostate specific antigen) Weakness Atrial flutter with rapid ventricular response LACY (acute kidney injury) Atrial fibrillation with rapid ventricular response Diaphragmatic eventration Back pain Bilateral kidney stones Ileostomy in place Lymphangitis Edema of lower extremity Parastomal hernia Obesity (BMI 30-39.9) Nocturnal hypoxemia Restrictive lung disease Essential hypertension Atrial arrhythmia Hemophilia Loja cyst Renal stones History of cataract BPH (benign prostatic hyperplasia) Gout Crohn's disease Peripheral vascular disease Thrombocytopenia History of hepatitis C Cholelithiasis Osteopenia Surgical History S/P colectomy Status post ablation of incompetent vein using laser (01/13/23) H/O tooth extraction History of appendectomy History of urethral stent History of cataract surgery H/O wrist surgery Family History Father Prostate cancer Mother Diabetes Maternal Grandfather Factor VIII deficiency hemophilia Social History Household Members: Spouse Household Members Other:: 1 Housing: House Are you a primary director of home care hospice to a significant other at home: No Do you presently have visiting nurse or other home services: No Alcohol intake: current Alcohol intake frequency: 3 or more drinks per day Alcohol type: beer Comment: once a month 3 beers Patient Tobacco Use Status: Never used Tobacco Tobacco use type: Cigarette e-Cigarette/Vaping Use: Never Used Second Hand Smoke Exposure: No service: No Current occupational status: retired Cognitive needs: No Hearing needs: No Vision needs: Yes Physical Exam Vital Signs: Last Vital Signs Pulse 101 H 06/24/24 11:06 BP 132/72 06/24/24 11:06 Pulse Ox 97 06/24/24 11:06 Oxygen Delivery Method Room Air 06/24/24 11:06 BMI result Body Mass Index 30.7 Const General: comfortable; No acute distress Orientation/consciousness: patient oriented x3 Eyes General: appearance normal, both eyes and all related structures Visual English: normal visual english by confrontation Neck Neck: Yes supple and Yes no JVD Resp Effort & Inspection: normal respiratory effort and respiratory effort not decreased Auscultation: rhonchi Cardio Palpation: no palpable S3 and no palpable S4 Heart sounds: no rubs GI Inspection: Yes normal to inspection Palpation (GI): Soft to palpation Percussion: Yes normal to percussion Auscultation: normal bowel sounds General: Yes no CVA tenderness Back/Spine/Pelvis Back: no CVA tenderness Skin General skin exam: no petechiae and no purpura Neuro General: patient oriented x3 and no focal motor deficits Extrem General: No clubbing and Yes edema (1 to 2+) Results Reviewed Nephrology Results: Hgb 13.0 g/dl (14.0-18.0) L 06/11/24 WBC 5.3 X10*3/uL (4.8-10.8) 06/11/24 Plt Count 142 X10*3/uL (160-400) L 06/11/24 Sodium 134 mmol/L (135-145) L 06/18/24 Potassium 5.5 mmol/L (3.3-5.1) H 06/18/24 Chloride 101 mmol/L (96-108) 06/18/24 Carbon Dioxide 23 mmol/L (22-29) 06/18/24 BUN 13 mg/dL (9-16) 06/18/24 Creatinine 1.54 mg/dL (0.5-1.4) H 06/18/24 Calcium 10.4 mg/dL (8.4-10.2) H 06/18/24 Phosphorus 3.4 mg/dL (2.7-4.5) 01/18/24 Assessment & Plan Assessment & Plan (1) Renal stones: Comment: Right renal calculi December 2018 uric acid stone October 2019 stable 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 He will follow-up with Urology. The meantime encouraged him to stay on low-sodium diet. He should increase his fluid intake to maintain urine output of 2 L per 24 hours (2) LACY (acute kidney injury): Code(s): N17.9 - Acute kidney failure, unspecified Category: Medical Plan: LACY due to hypoperfusion STOP MILOXICAM No signs or symptoms of uremia. Continue to avoid nephrotoxic agents. Plan History of hyperkalemia in setting of LACY He was on potassium citrate. Hold potassium citrate for 3 days . We will follow serum potassium levels. Low K diet discussed Hyponatremia due to decreased free water clearance also resolved Fluid overload Add LAsix 20 mg daily and reassess Orders: Orders Basic Metabolic Panel 3 Weeks N18.30 - Chronic kidney disease, stage 3 unspecified Medications: New furosemide (Lasix) 20 mg PO DAILY 30 tabs 1RF Discontinued meloxicam Discontinued Reason: Doctor's Order 7.5 mg PO DAILY 30 tabs 0RF M54.2 - Cervicalgia Coding Level of Care Code Est Pt Level 4 (05919) Diagnoses Renal stones N20.0 LACY (acute kidney injury) N17.9
== END 2024-06-24 11:21 | disposition home or self-care (01) ==
PROVIDERS: PCP Internal Medicine; Visit Provider Internal Medicine Hypertension Specialist
DX: N20.0 Calculus of kidney (principal); N17.9 Acute kidney failure, unspecified
CPT/HCPCS: 99214

== ENCOUNTER → 2024-06-24 11:06 | Outpatient (BNVA) | payer BC, SELFPAY | PROVIDERS: PCP Internal Medicine; Visit Provider Internal Medicine Hypertension Specialist ==

== ENCOUNTER 2024-06-28 14:18 | Inpatient (IN) | payer MEDICARE, BC, SELFPAY ==
--- NOTE | ~2024-06-28 | CT_ITS ---
EXAMINATION: CT HEAD WITHOUT CONTRAST CT CERVICAL SPINE WITHOUT CONTRAST CLINICAL INFORMATION: Fall. COMPARISON: No recent relevant prior imaging. TECHNIQUE: Umbrella Mender images were obtained. CT imaging of the head and cervical spine was performed without contrast. Data was reformatted into multiplanar images at the acquisition resection. This CT examination was performed using dose optimization techniques as appropriate, including one or more of the following: Automated exposure control, iterative reconstruction, and adjustment of technique factors (mA and/or kVp) according to patient size (this includes techniques or standardized protocols for targeted exams where dose is matched to indication/reason for exam). Fleischner Society criteria for the followup of incidental pulmonary nodules was implemented if appropriate. DLP: 1453 mGy-cm. FINDINGS: Head: There is no acute intracranial hemorrhage or abnormal extra-axial collection. No intracranial mass effect or midline shift. Lateral and third ventricles are normal. No hydrocephalus. Castillo-white matter differentiation is grossly preserved and there is no evidence of an acute territorial infarct. [place] delineate a laceration of the scalp near the vertex. The calvarium and skull base are intact. Mastoid air cells and middle ear cavities are well aerated. No active paranasal sinus disease. Cervical spine: Spinal alignment is normal. Vertebral body heights are preserved. No acute cervical spine fracture. No abnormal prevertebral soft tissue swelling. There is advanced multilevel spondylosis of the cervical spine. Calcaneus is not well assessed on this examination due to inherent limitations of CT without intrathecal contrast. Uncovertebral joint spurring in conjunction with facet degenerative change causes [id number] bony neuroforaminal encroachment at multiple levels. Visualized lung apices are clear. CT/CT head/brain wo IV con IMPRESSION: Head: Elisabeth delineate laceration of the scalp near the vertex. Otherwise unremarkable examination. No evidence of acute territorial infarct or hemorrhage. Cervical Spine: There is advanced multilevel spondylosis of the cervical spine. No evidence of acute fracture and no posttraumatic spinal subluxation. Electronically signed by: Rowdy Madera MD 06/28/2024 07:05 PM EDT
--- NOTE | ~2024-06-28 | XR_ITS ---
EXAMINATION: Left knee 4 views and chest x-ray one view. CLINICAL INDICATION: Weakness. COMPARISON: Right knee 07/31/2017. FINDINGS: Left knee: There is loss of medial and patellofemoral compartment joint space. No visible acute fracture, dislocation or subluxation seen. No bony erosive changes. There is moderate medial and patellofemoral compartment periarticular spurring. The soft tissues are normal. CHEST: The lungs are well-expanded and clear acute pneumonic process. Heart size is enlarged. The pulmonary vascularity is normal. There is mild spondylosis of dorsal spine. No aggressive lytic or sclerotic process seen. XR/XR knee LT 3V IMPRESSION: Degenerative arthritic changes left knee. No acute fracture or dislocation. Mild cardiomegaly. No acute pulmonary process. Electronically signed by: Tu Beverly MD 06/28/2024 07:03 PM EDT
--- NOTE | ~2024-06-28 | XR_ITS ---
EXAMINATION: Left knee 4 views and chest x-ray one view. CLINICAL INDICATION: Weakness. COMPARISON: Right knee 07/31/2017. FINDINGS: Left knee: There is loss of medial and patellofemoral compartment joint space. No visible acute fracture, dislocation or subluxation seen. No bony erosive changes. There is moderate medial and patellofemoral compartment periarticular spurring. The soft tissues are normal. CHEST: The lungs are well-expanded and clear acute pneumonic process. Heart size is enlarged. The pulmonary vascularity is normal. There is mild spondylosis of dorsal spine. No aggressive lytic or sclerotic process seen. XR/XR chest 1V IMPRESSION: Degenerative arthritic changes left knee. No acute fracture or dislocation. Mild cardiomegaly. No acute pulmonary process. Electronically signed by: Tu Beverly MD 06/28/2024 07:03 PM EDT
--- NOTE | ~2024-06-28 | CT_ITS ---
EXAMINATION: CT HEAD WITHOUT CONTRAST CT CERVICAL SPINE WITHOUT CONTRAST CLINICAL INFORMATION: Fall. COMPARISON: No recent relevant prior imaging. TECHNIQUE: Lace Roller images were obtained. CT imaging of the head and cervical spine was performed without contrast. Data was reformatted into multiplanar images at the acquisition resection. This CT examination was performed using dose optimization techniques as appropriate, including one or more of the following: Automated exposure control, iterative reconstruction, and adjustment of technique factors (mA and/or kVp) according to patient size (this includes techniques or standardized protocols for targeted exams where dose is matched to indication/reason for exam). Fleischner Society criteria for the followup of incidental pulmonary nodules was implemented if appropriate. DLP: 1453 mGy-cm. FINDINGS: Head: There is no acute intracranial hemorrhage or abnormal extra-axial collection. No intracranial mass effect or midline shift. Lateral and third ventricles are normal. No hydrocephalus. Castillo-white matter differentiation is grossly preserved and there is no evidence of an acute territorial infarct. [place] delineate a laceration of the scalp near the vertex. The calvarium and skull base are intact. Mastoid air cells and middle ear cavities are well aerated. No active paranasal sinus disease. Cervical spine: Spinal alignment is normal. Vertebral body heights are preserved. No acute cervical spine fracture. No abnormal prevertebral soft tissue swelling. There is advanced multilevel spondylosis of the cervical spine. Calcaneus is not well assessed on this examination due to inherent limitations of CT without intrathecal contrast. Uncovertebral joint spurring in conjunction with facet degenerative change causes [id number] bony neuroforaminal encroachment at multiple levels. Visualized lung apices are clear. CT/CT cervical spine wo IV con IMPRESSION: Head: Elisabeth delineate laceration of the scalp near the vertex. Otherwise unremarkable examination. No evidence of acute territorial infarct or hemorrhage. Cervical Spine: There is advanced multilevel spondylosis of the cervical spine. No evidence of acute fracture and no posttraumatic spinal subluxation. Electronically signed by: Rowdy Madera MD 06/28/2024 07:05 PM EDT
--- NOTE | ~2024-06-28 | CT_ITS ---
EXAMINATION: NONCONTRAST HEAD CT INDICATION INFORMATION: Fall, head injury, history of hemophilia COMPARISON: 06/28/2024 TECHNIQUE: Noncontrast CT examinations of the head was performed. Coronal and sagittal images were created for each examination at the technologist workstation. This CT examination was performed using dose optimization techniques as appropriate, variously including the following: *Automated exposure control *Adjustment of mA and/or kV according to patient size (this includes techniques or standardized protocols for targeted exams where dose is matched to indication/reason for exam; i.e. extremities or head) *Use of iterative reconstruction technique DLP: 850 mGy-cm FINDINGS: Head: There is no evidence of acute intracranial hemorrhage or territorial infarction. No abnormal mass effect or midline shift is seen. Castillo to white matter differentiation is well preserved. No extra-axial fluid collections are identified. No hydrocephalus. Proportional prominence of the ventricles and sulcal spaces is consistent with mild volume loss. Patchy periventricular and deep white matter hypoattenuation is consistent with mild small vessel ischemic changes. Intracranial vascular calcifications. No fracture. Skin juan r near the vertex again noted. The mastoid air cells and visualized portions of the paranasal sinuses are well aerated. CT/CT head/brain wo IV con IMPRESSION: No acute intracranial pathology. Electronically signed by: Rowdy Jiang MD 06/29/2024 09:26 AM EDT
[2024-06-28 14:25] VITALS: BP 131/76; BP 170/60; PULSE 80; PULSE 90; RESP 22; TEMP 36.6; O2SAT 97; O2SAT 98; BMI 31.2
--- NOTE | 2024-06-28 16:04 | ECG_ITS ---
Test Reason : WEAKNESS Blood Pressure : / mmHG Vent. Rate : 091 BPM Atrial Rate : 091 BPM P-R Int : 196 ms QRS Dur : 092 ms QT Int : 374 ms P-R-T Axes : 005 -20 002 degrees QTc Int : 460 ms Normal sinus rhythm Low voltage QRS Nonspecific ST abnormality Abnormal ECG When compared with ECG of 17-AUG-2023 11:07, Sinus rhythm has replaced Atrial flutter Inverted T waves have replaced nonspecific T wave abnormality in Inferior leads Referred By: Mikal Yan Electronically Signed By:DARLIN WINSTON
[2024-06-28 16:19] VITALS: BP 137/37; PULSE 89; RESP 18; TEMP 36.6; O2SAT 97
[2024-06-28] MEDS: oxyCODONE HCl Immed Release 5 MG TABLET 10 MG PO (16:43)
[2024-06-28 17:07] LABS: MANUAL DIFF FLAG NO
[2024-06-28 17:12] LABS: Appearance Urine Clear; Basophils Percent Auto 0.3 % (0-2); Color Urine Yellow; Eosinophils Percent Auto 0.3 % (0-4); Glucose Urine UA Negative (Negative); Hematocrit 34.8 % (42.0-52.0); Hemoglobin 12.4 g/dl (14.0-18.0); Imm Gran Abs Auto 0.06 X10*3/uL (0.00-0.03); Imm Gran Pct Auto 0.8 % (0.0-0.4); Leukocyte Esterase Urine Negative (Negative); Lymphocytes Absolute Auto 0.9 X10*3/uL (1.2-4.9); Lymphocytes Percent Auto 12.6 % (20-40); Mean Corpuscular HGB Conc 35.6 g/dl (31.0-36.0); Mean Corpuscular Hemoglobin 35.9 pg (27.0-33.0); Mean Corpuscular Volume 100.9 fL (80.0-98.0); Mean Platelet Volume 9.5 fL (9.4-12.4); Monocytes Absolute Auto 0.7 X10*3/uL (0.1-1.2); Monocytes Percent Auto 9.2 % (2-11); Neutrophils Absolute Auto 5.7 x10*3/uL (2.0-8.3); Neutrophils Percent Auto 76.8 % (45-73); Nitrite Urine Negative (Negative); PH 5.5 (5.0-9.0); Platelet Count 139 X10*3/uL (160-400); Red Blood Count 3.45 X10*6/uL (4.60-5.80); Urine Blood Negative (Negative); Urine Ketones Negative (Negative); Urine Protein Negative (Neg-Trace); White Blood Count 7.4 X10*3/uL (4.8-10.8)
[2024-06-28 17:17] LABS: Prothrombin Time 11.5 SEC (10.9-12.4)
[2024-06-28 17:20] LABS: Partial Thromboplastin Time 37.6 SEC (26.0-36.8)
--- NOTE | 2024-06-28 17:32 | ED_ITS ---
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 Patient states that he has been feeling weak over the last week He states he tried to get out of his recliner today and he fell backwards striking his head against a bookcase. He did not get lightheaded or dizzy prior to the fall He feels as though his legs gave out Patient states in his legs have been weaker for the last week. He reports some left upper back pain. He denies any lower back pain. Denies any numbness, tingling Denies any fevers, chills, cough Related Data Home Medications ?Medication ?Instructions ?Recorded ?Confirmed calcium carbonate 600 mg-vitamin 1 tab PO DAILY 08/03/20 06/28/24 D3 5 mcg (200 unit) tablet (Calcium 600 + D(3)) cyanocobalamin (vitamin B-12) 250 250 mcg PO DAILY 08/03/20 06/28/24 mcg lozenges nystatin 100,000 unit/gram topical 1 appl topical DAILY PRN Skin 08/04/22 06/28/24 powder Irritation potassium citrate 10 mEq (1,080 20 meq PO DAILY 12/28/23 06/28/24 mg) tablet,extended release Previous Rx's ?Medication ?Instructions ?Recorded pyridoxine (vitamin B6) 100 mg 100 mg PO DAILY 90 days #90 tabs 06/17/22 tablet aspirin 81 mg chewable tablet 81 mg PO DAILY #30 tabs 08/21/23 finasteride 5 mg tablet 5 mg PO DAILY 90 days #90 tabs 03/01/24 terazosin 5 mg capsule 5 mg PO BEDTIME 90 days #90 caps 03/01/24 simvastatin 5 mg tablet 5 mg PO BEDTIME #30 tabs 04/26/24 folic acid 1 mg tablet 1 mg PO DAILY #30 tabs 06/11/24 sertraline 25 mg tablet 25 mg PO DAILY #30 tabs 06/18/24 furosemide 20 mg tablet 20 mg PO DAILY #90 tabs 06/25/24 metoprolol tartrate 50 mg tablet 50 mg PO BID 90 days #180 tabs 06/25/24 Allergies Allergy/AdvReac Type Severity Reaction Status Date / Time No Known Allergies Allergy Verified 06/28/24 14:27 Review of Systems 2 Constitutional: Constitutional: Denies body ache(s), Denies chills, Denies fever(s), Reports frequent falls and Reports weakness Eyes: Eyes: Denies blurry vision and Denies seeing flashes ENT: Denies vertigo, Denies dizziness and Denies sore throat Cardiovascular: Cardiovascular: Denies chest pain and Denies dyspnea Respiratory: Respiratory: Denies cough and Denies dyspnea Gastrointestinal: Gastrointestinal: Denies abdominal pain, Denies nausea and Denies vomiting Musculoskeletal: Musculoskeletal: Reports back pain Integumentary/Breasts: Skin/Breast: Reports wounds Neurologic: Denies vertigo, Denies dizziness, Reports frequent falls and Reports weakness [facility] Past Medical History Medical History Hemophilia A Dyspnea on exertion Screening PSA (prostate specific antigen) Weakness Atrial flutter with rapid ventricular response LACY (acute kidney injury) Atrial fibrillation with rapid ventricular response Diaphragmatic eventration Back pain Bilateral kidney stones Ileostomy in place Lymphangitis Edema of lower extremity Parastomal hernia Obesity (BMI 30-39.9) Nocturnal hypoxemia Restrictive lung disease Essential hypertension Atrial arrhythmia Hemophilia Loja cyst Renal stones History of cataract BPH (benign prostatic hyperplasia) Gout Crohn's disease Peripheral vascular disease Thrombocytopenia History of hepatitis C Cholelithiasis Osteopenia Surgical History S/P colectomy Status post ablation of incompetent vein using laser (01/13/23) H/O tooth extraction History of appendectomy History of urethral stent History of cataract surgery H/O wrist surgery Family History Family History Father Prostate cancer Mother Diabetes Maternal Grandfather Factor VIII deficiency hemophilia Social History Social History Household Members: Spouse Household Members Other:: 1 Housing: House Are you a primary patient care manager to a significant other at home: No Do you presently have visiting nurse or other home services: No Alcohol intake: current Alcohol intake frequency: holidays/special occasions only Alcohol type: beer Comment: once a month 3 beers Patient Tobacco Use Status: Never used Tobacco Tobacco use type: Cigarette Smoked in Last 30 Days: No e-Cigarette/Vaping Use: Never Used Second Hand Smoke Exposure: No Use of substances other than those prescribed or required for medical reasons: No Advance Directives: No Advance Directives Information Provided: No Do you have a plan to hurt others: No Plan service: No Current occupational status: retired Cognitive needs: No Hearing needs: No Vision needs: Yes Physical Exam ED Vital Signs: Vital Signs - 24 hr 06/28/24 14:25 06/28/24 16:19 06/28/24 17:37 Temperature 97.9 F 97.9 F 98.4 F Pulse Rate 90 89 62 Respiratory Rate 22 H 18 16 Blood Pressure 131/76 137/37 L 125/62 Pulse Oximetry 98 97 97 Oxygen Delivery Method Room Air Room Air Room Air 06/28/24 21:12 06/29/24 01:08 06/29/24 04:00 Temperature 98.3 F 98.7 F 98.4 F Pulse Rate 86 81 84 Respiratory Rate 16 16 16 Blood Pressure 104/71 127/57 L 132/59 L Pulse Oximetry 95 97 97 Oxygen Delivery Method Room Air Room Air Room Air 06/29/24 06:32 06/29/24 08:37 06/29/24 09:00 Temperature 98.4 F Pulse Rate 86 115 H 117 H Respiratory Rate 16 18 Blood Pressure 121/60 107/57 L Pulse Oximetry 96 97 98 Oxygen Delivery Method Room Air Room Air BMI result Body Mass Index 31.2 Const General: healthy appearing, comfortable, no acute distress, alert and awake Nutritional Appearance: well nourished Orientation/consciousness: patient oriented x3 HENMT Other: Patient has a 5 cm L-shaped laceration to the top of the scalp Head: Yes laceration Eyes Eyelids: Yes eyelids normal Conjunctivae: conjunctivae normal Sclerae: sclerae normal Corneas: corneas normal Pupils: Equal, round and reactive pupils present EOM: EOMs intact bilaterally Neck Neck: Yes full ROM Resp Effort & Inspection: normal respiratory effort, able to speak in complete sentences and not labored Cardio Rate: regular rate Rhythm: regular rhythm GI Inspection: No distended Palpation (GI): Soft to palpation, not firm, nontender, no guarding and not rigid Skin General skin exam: elasticity normal Neuro General: patient oriented x3 Cranial nerves: Yes CN's II-XII intact bilaterally, Yes Equal, round and reactive pupils present and Yes Bilaterally intact EOM present Cognition (Neuro): normal cognition Motor exam (neuro): 5/5 motor strength present throughout Extrem Other: Moving all extremities well without any obvious deformities Course Reevaluation(s) Reevaluation #1: Patient's workup largely unremarkable, he was given magnesium supplement as his magnesium was 1.4. Given his low sodium, low magnesium and elevated MCV I did ask if he drank alcohol regularly. The patient reports that he occasionally has a beer but does not drink excessively. The patient does not feel safe going home due to his recent falls, plan for case management evaluation Time: 19:46 Reevaluation #2: 08:45 on 06/21/2024 - I was called to bedside by nursing staff, physical therapist was at bedside attempting to evaluate the patient, he was noted to be very weak and tremulous, having very significant difficulty participating in PT evaluation, PT felt there was a notable LUE weakness against resistance and L facial droop. At the time my evaluation he is noted to have tremors to the bilateral upper extremities visible while at rest, no focal neurological deficits, NIH stroke score is 0 at this time. He states that he does feel profoundly weak but has been feeling this way since the fall. Nursing staff affirms that they noted weakness to the left upper extremity and a left-sided facial droop, I however do not appreciate this deficit. Concerning for possible TIA, however Given his history of fall with head injury and hemophilia, will obtain repeat head CT to exclude ICH, lower suspicion for infarct, he would not be a candidate for TNK. On review I have concern that he is in alcohol withdrawal, he reports to me at this time that he has not drank ?in a while? on further evaluation he reports his last drink 1 week ago, reporting that he typically drinks ?few beers a day?, denies history of alcohol withdrawal or seizures. has hypomagnesemia and his MCV is high hyponatremia, I think this further supports likely alcohol withdrawal as etiology for his tremors. CIWA is 9, initiating phenobarbital Time: 08:57 Reevaluation #3: CT/CT head/brain wo IV con IMPRESSION: No acute intracranial pathology. Admitting to medicine service for possible TIA, alcohol withdrawal. Spoke with hospitalist, Dr. Hutton Time: 10:01 Medications Administered Generic Name Dose Route Start Last Admin Trade Name Sapphire PRN Reason Stop Dose Admin Aspirin 81 mg 06/29/24 09:00 06/29/24 08:48 Aspirin 81 Mg Tab.Chew PO 81 mg DAILY FRACISCO Administration Calcium Carbonate/Cholecalciferol 500 mg 06/29/24 09:00 06/29/24 08:49 Calcium + Vitamin D 250 Mg Tablet PO 500 mg DAILY FRACISCO Administration Cyanocobalamin 250 mcg 06/29/24 09:00 06/29/24 10:16 Cyanocobalamin (Vitamin B-12) 500 Mcg Tablet PO 250 mcg DAILY FRACISCO Administration Finasteride 5 mg 06/29/24 09:00 06/29/24 08:48 Finasteride 5 Mg Tablet PO 5 mg DAILY FRACISCO Administration Folic Acid 1 mg 06/29/24 09:00 06/29/24 08:48 Folic Acid 1 Mg Tablet PO 1 mg DAILY FRACISCO Administration Furosemide 20 mg 06/29/24 09:00 06/29/24 08:48 Furosemide 20 Mg Tablet PO 20 mg DAILY FRACISCO Administration Protocol Metoprolol Tartrate 50 mg 06/29/24 09:00 06/29/24 08:48 Metoprolol Tartrate 50 Mg Tablet PO 50 mg BID FRACISCO Administration Protocol Oxycodone HCl 5 mg 06/28/24 20:44 06/29/24 04:23 Oxycodone Hcl Immed Release 5 Mg Tablet PO 5 mg Q6H PRN Administration Pain, Severe (Pain Scale 7-10) Sertraline HCl 25 mg 06/29/24 09:00 06/29/24 08:49 Sertraline Hcl 25 Mg Tablet PO 25 mg DAILY FRACISCO Administration Discontinued Medications Generic Name Dose Route Start Last Admin Trade Name Sapphire PRN Reason Stop Dose Admin Magnesium Sulfate/Dextrose 1 gm in 100 mls @ 100 mls/hr 06/28/24 18:07 06/28/24 19:58 Magnesium Sulfate/D5w IV 06/28/24 19:06 Infused ONCE ONE Infusion Oxycodone HCl 10 mg 06/28/24 16:03 06/28/24 16:43 Oxycodone Hcl Immed Release 5 Mg Tablet PO 06/28/24 16:04 10 mg ONCE ONE Administration Phenobarbital Sodium 310 mg 06/29/24 10:00 06/29/24 10:23 Phenobarbital Sodium 130 Mg/Ml Im Once IM 06/29/24 10:01 310 mg ONCE ONE Administration Protocol Procedures Laceration Laceration 1: Site: scalp Size (cm): 5 Description: flap Depth: simple, single layer Pre-repair: wound explored, irrigated extensively and deep structures intact Size (cm): other (Surgical elisabeth) Number of sutures: 18 Technique: simple, interrupted (Surgical elisabeth) Medical Decision Making Medical Decision Making [facility] Narrative: 73-year-old male past medical history as documented above presents for evaluation after a fall. He reports increased weakness for the last [address] scan of the brain and cervical spine given the fall. His vital signs are stable, given his reported weakness will check EKG, labs, urinalysis, chest x-ray Differential Diagnosis Differential Diagnoses: The differential diagnosis associated with the presentation includes Mechanical fall Weakness UTI LACY Intracranial hemorrhage Laceration Contusion Cervical fracture Lab Data [facility] Lab Attestation statement: I reviewed the patient's lab results. No leukocytosis. The patient has a macrocytic anemia consistent his baseline 06/28/24 16:58 06/28/24 16:58 Labs: Lab Results 06/28/24 Range/Units 16:58 WBC 7.4 (4.8-10.8) X10*3/uL RBC 3.45 L (4.60-5.80) X10*6/uL Hgb 12.4 L (14.0-18.0) g/dl Hct 34.8 L (42.0-52.0) % MCV 100.9 H (80.0-98.0) fL MCH 35.9 H (27.0-33.0) pg MCHC 35.6 (31.0-36.0) g/dl RDW 13.0 (11.0-16.0) % Plt Count 139 L (160-400) X10*3/uL MPV 9.5 (9.4-12.4) fL Immature Gran % (Auto) 0.8 H (0.0-0.4) % Neut % (Auto) 76.8 H (45-73) % Lymph % (Auto) 12.6 L (20-40) % [place] % (Auto) 9.2 (2-11) % Eos % (Auto) 0.3 (0-4) % Baso % (Auto) 0.3 (0-2) % Lymph # (Auto) 0.9 L (1.2-4.9) X10*3/uL [place] # (Auto) 0.7 (0.1-1.2) X10*3/uL Eos # (Auto) 0.0 (0.0-0.4) X10*3/uL Baso # (Auto) 0.0 (0.0-0.2) X10*3/uL Abs Immat Gran (auto) 0.06 H (0.00-0.03) X10*3/uL Absolute Neuts (auto) 5.7 (2.0-8.3) x10*3/uL Absolute Nucleated RBC 0.000 (0.0-0.012) X10*3/uL Nucleated RBC % (auto) 0.0 (0.0-0.2) /100WBC PT 11.5 (10.9-12.4) SEC INR 1.0 (0.9-1.1) APTT 37.6 H (26.0-36.8) SEC Sodium 131 L (135-145) mmol/L Potassium 4.2 D (3.3-5.1) mmol/L Chloride 101 (96-108) mmol/L Carbon Dioxide 20 L (22-29) mmol/L Anion Gap 14 (12-20) BUN 14 (9-16) mg/dL Creatinine 1.52 H (0.5-1.4) mg/dL Estim Creat Clear Calc 54.8 Estimated GFR 45 Random Glucose 101 (60-115) mg/dL Calcium 9.4 D (8.4-10.2) mg/dL Magnesium 1.4 L* (1.6-2.6) mg/dL Total Bilirubin 1.0 (0.0-1.0) mg/dL AST 31 (5-37) U/L ALT 27 (0-40) U/L Alkaline Phosphatase 46 (39-117) U/L Troponin I High Sens < 2.7 D (<3.5-35.0) ng/L B-Natriuretic Peptide 118 H (<100) pg/mL Total Protein 6.7 (6.5-8.0) g/dL Albumin 3.8 (3.5-5.0) g/dL Lipase 44 (8-78) U/L Urine Color Yellow Urine Appearance Clear Urine pH 5.5 (5.0-9.0) Ur Specific Dress[place] 1.010 (1.005-1.025) Urine Protein Negative (Neg-Trace) mg/dL Urine Glucose (UA) Negative (Negative) mg/dL Urine Ketones Negative (Negative) mg/dL Urine Blood Negative (Negative) Urine Nitrite Negative (Negative) Ur Leukocyte Esterase Negative (Negative) Urine RBC 0-2 (0-2) /HPF Urine WBC 0-5 (0-5) /HPF Ur Squamous Epith Cells 3-5 (0-2) /HPF Urine Bacteria None Seen (None Seen) Hyaline Casts 6-10 (0-2) /LPF Ethyl Alcohol < 10 mg/dL Influenza Type A (PCR) NEGATIVE (Negative) Influenza Type B (PCR) NEGATIVE (Negative) RSV RNA Qual (PCR) NEGATIVE (Negative) SARS-CoV-2 RNA (RT-PCR) NEGATIVE (Negative) Independent Interpretation I performed an independent interpretation of an: CT Scan (Agree with Radiology interpretation) Radiology Impression Discussion of test interpretation with radiology: I have reviewed the radiologist's reading. Radiologist Impression: CT/CT head/brain wo IV con IMPRESSION: Head: Elisabeth delineate laceration of the scalp near the vertex. Otherwise unremarkable examination. No evidence of acute territorial infarct or hemorrhage. Cervical Spine: There is advanced multilevel spondylosis of the cervical spine. No evidence of acute fracture and no posttraumatic spinal subluxation. Electronically signed by: Rowdy Madera MD 06/28/2024 07:05 PM EDT Discharge Plan Discharge Clinical Impression: Weakness, Fall, Laceration of scalp Patient Disposition: Admitted As Inpatient Instructions: Laceration (ED), Fall Prevention for Older Adults (ED) Additional Instructions: Your workup in the ER today was reassuring You had 15 elisabeth placed on laceration to the top of your head Your magnesium was low and your sodium was low. Your magnesium was replaced IV Your CT scans did not show any traumatic injuries Your chest x-ray and knee x-ray did not show any significant injuries either. Prescriptions: No Action simvastatin 5 mg tablet 5 mg PO BEDTIME Qty: 30 4RF folic acid 1 mg tablet 1 mg PO DAILY Qty: 30 3RF metoprolol tartrate 50 mg tablet 50 mg PO BID 90 Days Qty: 180 3RF furosemide 20 mg tablet 20 mg PO DAILY Qty: 90 0RF nystatin 100,000 unit/gram powder 1 appl topical DAILY PRN (Reason: Skin Irritation) Rx Instructions: apply to ileostomy site topical 2 times a day; aspirin 81 mg Tablet,Chewable 81 mg PO DAILY Qty: 30 0RF calcium carbonate-vitamin D3 [Calcium 600 + D(3)] 600 mg(1,500mg) -200 unit tablet 1 tab PO DAILY cyanocobalamin (vitamin B-12) 250 mcg lozenge 250 mcg PO DAILY pyridoxine (vitamin B6) 100 mg tablet 100 mg PO DAILY 90 Days Qty: 90 3RF potassium citrate 10 mEq (1,080 mg) tablet extended release 20 meq PO DAILY finasteride 5 mg tablet 5 mg PO DAILY 90 Days Qty: 90 1RF terazosin 5 mg capsule 5 mg PO BEDTIME 90 Days Qty: 90 1RF sertraline 25 mg tablet 25 mg PO DAILY Qty: 30 2RF Print Language: French
[2024-06-28 17:36] LABS: Bacteria Urine None Seen (None Seen); RBC Urine 0-2 /HPF (0-2); WBC Urine 0-5 /HPF (0-5)
[2024-06-28 17:37] VITALS: BP 125/62; PULSE 62; RESP 16; TEMP 36.9; O2SAT 97
--- NOTE | 2024-06-28 17:38 | MHC.EDTECH ---
This pct just assumed care of Patient ,vitals taken ,all extra blankets removed from underneath Patient bottom ,Patient at bedside .
[2024-06-28 17:46] LABS: Influenza A PCR NEGATIVE (Negative); Influenza B PCR NEGATIVE (Negative); Resp Syncy Virus RNA Qual PCR NEGATIVE (Negative); SARS COV2 PCR INHOUSE NEGATIVE (Negative); Troponin-I High Sensitivity < 2.7 ng/L (<3.5-35.0)
[2024-06-28 17:48] LABS: Alanine Aminotransferase 27 U/L (0-40); Albumin Level 3.8 g/dL (3.5-5.0); Alkaline Phosphatase 46 U/L (39-117); Anion Gap 14 (12-20); Aspartate Amino Transferase 31 U/L (5-37); Blood Urea Nitrogen 14 mg/dL (9-16); Calcium 9.4 mg/dL (8.4-10.2); Carbon Dioxide 20 mmol/L (22-29); Chloride 101 mmol/L (96-108); Creatinine Clr Calc Pharmacy 54.8; Estimated Glomerular Filt Rate 45; Glucose Random 101 mg/dL (60-115); Lipase 44 U/L (8-78); Magnesium 1.4 mg/dL (1.6-2.6); Potassium 4.2 mmol/L (3.3-5.1); Sodium 131 mmol/L (135-145); Total Protein 6.7 g/dL (6.5-8.0)
[2024-06-28 18:12] LABS: B Type Natriuretic Peptide 118 pg/mL (<100)
[2024-06-28 18:27] LABS: Ethanol < 10 mg/dL
[2024-06-28] MEDS: Magnesium Sulfate/D5W 1 GM/100 ML PIGGYBACK IV (18:36)
--- NOTE | 2024-06-28 20:12 | MHC.EDTECH ---
pt's head lac cleaned with saline and hydrogen peroxide with excellent tolerance, RN aware
--- NOTE | 2024-06-28 21:02 | PC.NURSE ---
med rec completed, pt aware of meds when list was read to him
[2024-06-28] MEDS: oxyCODONE HCl Immed Release 5 MG TABLET PO (21:06)
[2024-06-28 21:12] VITALS: BP 104/71; PULSE 86; RESP 16; TEMP 36.8; O2SAT 95
--- NOTE | 2024-06-28 22:29 | MHC.CM.ED ---
Addendum entered by Julia Jain 06/28/24 22:38: Provider has some concerns about ETOH intake and questioning possible withdrawal d/t labs and some hand tremors, but patient denies ETOH misuse. Original Note: CM met with patient and at the request of Kapil DEL ROSARIO. Pt has been increasingly weak over the past week. Fell today. Laceration to head with sutures.Pt lives with his . Uses a cane occasionally. Drives. Independent. Has no services in the home. HCP at [facility]. HCP/ Nguyễn Rosado ([phone]). Pt is not thrilled about the idea of physical therapy, but is agreeable to PT evaluation. feels that his fall today is isolated and does not think he needs rehab. Pt is tremulous and distant with questions. Pt and are refusing referrals at this time. They want to wait until the PT evaluation and then make a decision about STR. They are aware that Medicare does not pay for STR with 3 midnight stay. [facility] might [facility]. Provider aware. Pt will have PT assessment in the morning. No referrals made at the patient's request. CM will follow for safe discharge plan.
[2024-06-29] VITALS (9 sets, daily range): BP systolic 92–132; BP diastolic 44–73; PULSE 66–117; RESP 14–20; TEMP 36.9–37.2; O2SAT 96–98; BMI 31.4
--- NOTE | 2024-06-29 01:09 | MHC.EDTECH ---
rounding done ,vitals taken ,Patient bedding change and Patient reposition and boosted up in bed ,fresh ice water ,colostomy bag empty ,350 ml urine empty from urinal ,All safety measure in Place .
[2024-06-29] MEDS: oxyCODONE HCl Immed Release 5 MG TABLET PO ×3 (04:23→20:19)
--- NOTE | 2024-06-29 08:40 | PC.NURSE ---
PT at bedside, pt c/o of dizziness upon sitting. neuros checked as pt unable to sit upright without assistance, having a left sided lean. pt has l sided upper extremity weakness, new tremors. notified David EMBOSSING MACHINE OPERATOR HELPER of this finding as unsure if this new a new finding. pt reports he does not know how long he has felt this way
[2024-06-29] MEDS: Finasteride 5 MG TABLET PO (08:48)
[2024-06-29] MEDS: Aspirin 81 MG TAB.CHEW PO (08:48)
[2024-06-29] MEDS: Metoprolol Tartrate 50 MG TABLET PO ×2 (08:48→20:18)
[2024-06-29] MEDS: Furosemide 20 MG TABLET PO (08:48)
[2024-06-29] MEDS: Folic Acid 1 MG TABLET PO (08:48)
[2024-06-29] MEDS: Sertraline HCL 25 MG TABLET PO (08:49)
[2024-06-29] MEDS: Calcium + Vitamin D 250 MG TABLET 500 MG PO (08:49)
[2024-06-29] MEDS: Cyanocobalamin (Vitamin B-12) 500 MCG TABLET 250 MCG PO (10:16)
[2024-06-29] MEDS: PHENobarbitaL sodium 130 MG/ML IM ONCE 310 MG IM (10:23)
--- NOTE | 2024-06-29 10:29 | MHC.CM.ED ---
Pt consulted for CM / d/c needs: PT recommending placement: Review of EMR notes + tremors, CIWA of 9 and initiation of Phenobarb. Discussed w/MD; pt to be admitted for ETOH w/d. Pt has been referred to acute rehab - no acceptance as of yet. Pt may have a qualifying [facility] stay for tx of above and could meet criteria for STR. CM to follow for finalization of placement needs.
--- NOTE | 2024-06-29 10:52 | P.HPHOSP_ITS ---
History of Present Illness Date of Service: 06/29/24 Chief Complaint: Fall 73-year-old man initially presented to the ER after a fall at home. She reports he was in his living room and fell forward and hit the left side of his forehead on the TV. He denied loss of consciousness, nausea, vomiting, diarrhea, chest pain, shortness breath, visual changes. He did mention that he had been feeling weak over the last few days, he does report that he drinks alcohol daily and his last drink was on because he had no appetite. His spouse was home at the time and immediately called emergency services. Initially plan was for case management evaluation for short-term rehab as patient did not feel safe going back home. However this morning he was evaluated by Physical therapy who noted left-sided weakness and left-sided facial droop, it was then decided that patient should be admitted. Head CT and cervical spine CT were both negative for any acute abnormality. During the physical examination the patient was not noted to have any weakness to upper or lower extremities or facial droop noted. Patient reported that both of his legs were weak at the time. Patient was also noted to have tremors and anxiety secondary to alcohol use. He reports drinking 3 beers a day and last drink was on . Patient was started on phenobarbital protocol in the ER. 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 Patient received oxycodone, IV magnesium, Lasix and phenobarbital in the ER. Plan is to admit patient for further management and treatment of possible TIA and alcohol withdrawal symptoms. Review of Systems 2 Review of Systems: Denies any recent fever chills or decrease in appetite respiratory denies any shortness of breath or cough cardiovascular denied chest pain, noted edema to lower extremities gastrointestinal denies any dysphagia abdominal pain nausea vomiting or diarrhea genitourinary denies any dysuria frequency or hematuria musculoskeletal denies any joint pain or swelling neuropsych denies any weakness or seizures all other systems reviewed are negative [facility] Medical History (Updated 06/29/24 @ 12:04 by Luis Manuel Pierre MD) Hemophilia A Dyspnea on exertion Weakness Atrial flutter with rapid ventricular response LACY (acute kidney injury) Atrial fibrillation with rapid ventricular response Back pain Bilateral kidney stones Ileostomy in place Lymphangitis Edema of lower extremity Parastomal hernia Obesity (BMI 30-39.9) Nocturnal hypoxemia Restrictive lung disease Essential hypertension Hemophilia Loja cyst Renal stones History of cataract BPH (benign prostatic hyperplasia) Gout Crohn's disease Peripheral vascular disease Thrombocytopenia History of hepatitis C Cholelithiasis Osteopenia Family History Father Prostate cancer Mother Diabetes Maternal Grandfather Factor VIII deficiency hemophilia Surgical History S/P colectomy Status post ablation of incompetent vein using laser (01/13/23) H/O tooth extraction History of appendectomy History of urethral stent History of cataract surgery H/O wrist surgery Social History (Updated 06/29/24 @ 10:54 by Farida Post NP) Household Members: Spouse Household Members Other:: 1 Housing: House Are you a primary rn intensive care unit to a significant other at home: No Do you presently have visiting nurse or other home services: No Alcohol intake: current Alcohol intake frequency: holidays/special occasions only Alcohol type: beer Patient Tobacco Use Status: Never used Tobacco Tobacco use type: Cigarette Smoked in Last 30 Days: No e-Cigarette/Vaping Use: Never Used Second Hand Smoke Exposure: No Use of substances other than those prescribed or required for medical reasons: No Advance Directives: No Advance Directives Information Provided: No Do you have a plan to hurt others: No Plan Nutrition Risks: No Nutritional Risk service: No Current occupational status: retired Cognitive needs: No Hearing needs: No Vision needs: Yes Meds Allergies Allergy/AdvReac Type Severity Reaction Status Date / Time No Known Allergies Allergy Verified 06/28/24 14:27 Active Medications: Current Medications Acetaminophen (Acetaminophen 325 Mg Tablet) 650 mg PO Q6H PRN PRN Reason: Pain, Mild (Pain Scale 1-3), fever or headache Aspirin (Aspirin 81 Mg Tab.Chew) 81 mg PO DAILY FRACISCO Last Admin: 06/29/24 08:48 Dose: 81 mg Atorvastatin Calcium (Atorvastatin Calcium 10 Mg Tablet) 5 mg PO BEDTIME FRACISCO Calcium Carbonate (Calcium Carbonate 750 Mg Tab.Chew) 750 mg PO Q4H PRN PRN Reason: Heartburn Calcium Carbonate/Cholecalciferol (Calcium + Vitamin D 250 Mg Tablet) 500 mg PO DAILY [facility] Last Admin: 06/29/24 08:49 Dose: 500 mg Cyanocobalamin (Cyanocobalamin (Vitamin B-12) 500 Mcg Tablet) 250 mcg PO DAILY [facility] Last Admin: 06/29/24 10:16 Dose: 250 mcg Doxazosin Mesylate (Doxazosin Mesylate 2 Mg Tablet) 4 mg PO BEDTIME FRACISCO Finasteride (Finasteride 5 Mg Tablet) 5 mg PO DAILY [facility] Last Admin: 06/29/24 08:48 Dose: 5 mg Folic Acid (Folic Acid 1 Mg Tablet) 1 mg PO DAILY [facility] Last Admin: 06/29/24 08:48 Dose: 1 mg Furosemide (Furosemide 20 Mg Tablet) 20 mg PO DAILY [facility]; Protocol Last Admin: 06/29/24 08:48 Dose: 20 mg Magnesium Hydroxide (Milk Of Magnesia 30 Ml Oral.Susp) 30 ml PO DAILY PRN PRN Reason: Constipation Melatonin (Melatonin 3 Mg Tablet) 6 mg PO BEDTIME PRN PRN Reason: Insomnia Metoprolol Tartrate (Metoprolol Tartrate 50 Mg Tablet) 50 mg PO BID [facility]; Protocol Last Admin: 06/29/24 08:48 Dose: 50 mg Non-Formulary Medication (Potassium Citrate) 20 meq PO DAILY [facility] Nystatin (Nystatin Powder 15 Gm Bottle) 1 appl TOPICAL DAILY PRN; Protocol PRN Reason: Skin Irritation Oxycodone HCl (Oxycodone Hcl Immed Release 5 Mg Tablet) 5 mg PO Q6H PRN PRN Reason: Pain, Severe (Pain Scale 7-10) Last Admin: 06/29/24 04:23 Dose: 5 mg Pharmacy Consult (Consult Rx Etoh Phenob Im/Po) 1 each MISCELLANE ONCE PRN; Protocol PRN Reason: Consult order Phenobarbital (Phenobarbital 30 Mg Tablet) 60 mg PO BID [facility]; Protocol Stop: 07/01/24 09:01 Phenobarbital (Phenobarbital 30 Mg Tablet) 30 mg PO BID [facility]; Protocol Stop: 07/03/24 09:01 Phenobarbital (Phenobarbital 30 Mg Tablet) 30 mg PO DAILY [facility]; Protocol Stop: 07/05/24 09:01 Phenobarbital Sodium (Phenobarbital Sodium 130 Mg/Ml Vial Im Q3hx2) 233 mg IM Q3H FRACISCO; Protocol Stop: 06/29/24 16:01 Polyethylene Glycol (Polyethylene Glycol 3350 17 Gm Powd.Pack) 17 gm PO DAILY PRN PRN Reason: Constipation Sertraline HCl (Sertraline Hcl 25 Mg Tablet) 25 mg PO DAILY [facility] Last Admin: 06/29/24 08:49 Dose: 25 mg Sodium Chloride (0.9 % Sodium Chloride Flush 3 Ml Syringe) 3 ml IVFLUSH QSHIFT [facility] Home Medications ?Medication ?Instructions ?Recorded ?Confirmed ?Last Taken ?Type calcium carbonate 600 mg-vitamin 1 tab PO DAILY 08/03/20 06/28/24 06/28/24 History D3 5 mcg (200 unit) tablet (Calcium 600 + D(3)) nystatin 100,000 unit/gram topical 1 appl topical DAILY PRN Skin 08/04/22 06/28/24 Unknown History powder Irritation potassium citrate 10 mEq (1,080 20 meq PO DAILY@1700 12/28/23 06/29/24 Unknown History mg) tablet,extended release cyanocobalamin (vitamin B-12) 1,000 mcg PO DAILY 06/29/24 06/29/24 06/28/24 History 1,000 mcg tablet Physical Exam 2 Vital Signs and Narrative: Vital Signs: Last Vital Signs Temp 98.4 F 06/29/24 06:32 Pulse 117 H 06/29/24 09:00 Resp 18 06/29/24 08:37 BP 107/57 L 06/29/24 08:37 Pulse Ox 98 06/29/24 09:00 O2 Del Method Room Air 06/29/24 08:37 BMI result Body Mass Index 31.2 Appearing in no acute distress head is normocephalic atraumatic eyes pupils are PERRLA sclera is anicteric mouth throat mucous membranes are intact and moist neck is supple no lymphadenopathy, no JVD noted lung sounds are clear to auscultation heart regular rate rhythm, clear S1, S2, noted lower extremity edema, mild pitting positive bowel sounds, abdomen is soft, nontender, colostomy noted neuro patient is alert x3, no focal deficits Left lower extremity knee hematoma Left forehead using Results Labs 06/28/24 16:58 06/29/24 12:15 Labs: Laboratory Results - last 24 hr 06/28/24 16:58 MCV 100.9 H MCH 35.9 H MCHC 35.6 RDW 13.0 Plt Count 139 L MPV 9.5 Immature Gran % (Auto) 0.8 H Neut % (Auto) 76.8 H Lymph % (Auto) 12.6 L [place] % (Auto) 9.2 Eos % (Auto) 0.3 Baso % (Auto) 0.3 Lymph # (Auto) 0.9 L [place] # (Auto) 0.7 Eos # (Auto) 0.0 Baso # (Auto) 0.0 Abs Immat Gran (auto) 0.06 H Absolute Neuts (auto) 5.7 Absolute Nucleated RBC 0.000 Nucleated RBC % (auto) 0.0 PT 11.5 INR 1.0 APTT 37.6 H Anion Gap 14 Estim Creat Clear Calc 54.8 Estimated GFR 45 Random Glucose 101 Calcium 9.4 D Magnesium 1.4 L* Total Bilirubin 1.0 AST 31 ALT 27 Alkaline Phosphatase 46 Troponin I High Sens < 2.7 D B-Natriuretic Peptide 118 H Total Protein 6.7 Albumin 3.8 Lipase 44 Urine Color Yellow Urine Appearance Clear Urine pH 5.5 Ur Specific [place] 1.010 Urine Protein Negative Urine Glucose (UA) Negative Urine Ketones Negative Urine Blood Negative Urine Nitrite Negative Ur Leukocyte Esterase Negative Urine RBC 0-2 Urine WBC 0-5 Ur Squamous Epith Cells 3-5 Urine Bacteria None Seen Hyaline Casts 6-10 Ethyl Alcohol < 10 Influenza Type A (PCR) NEGATIVE Influenza Type B (PCR) NEGATIVE RSV RNA Qual (PCR) NEGATIVE SARS-CoV-2 RNA (RT-PCR) NEGATIVE Imaging Radiologist's Impressions: Impressions Knee X-Ray 06/28/24 16:03 IMPRESSION: Degenerative arthritic changes left knee. No acute fracture or dislocation. Mild cardiomegaly. No acute pulmonary process. Electronically signed by: Tu Beverly MD 06/28/2024 07:03 PM [employer] Chest X-Ray 06/28/24 16:30 IMPRESSION: Degenerative arthritic changes left knee. No acute fracture or dislocation. Mild cardiomegaly. No acute pulmonary process. Electronically signed by: Tu Beverly MD 06/28/2024 07:03 PM [employer] Cervical Spine CT 06/28/24 16:48 IMPRESSION: Head: Elisabeth delineate laceration of the scalp near the vertex. Otherwise unremarkable examination. No evidence of acute territorial infarct or hemorrhage. Cervical Spine: There is advanced multilevel spondylosis of the cervical spine. No evidence of acute fracture and no posttraumatic spinal subluxation. Electronically signed by: Rowdy Madera MD 06/28/2024 07:05 PM EDT RP Head CT 06/28/24 16:48 IMPRESSION: Head: [place] delineate laceration of the scalp near the vertex. Otherwise unremarkable examination. No evidence of acute territorial infarct or hemorrhage. Cervical Spine: There is advanced multilevel spondylosis of the cervical spine. No evidence of acute fracture and no posttraumatic spinal subluxation. Electronically signed by: Rowdy Madera MD 06/28/2024 07:05 PM EDT RP Head CT 06/29/24 09:00 IMPRESSION: No acute intracranial pathology. Electronically signed by: Rowdy Jiang MD 06/29/2024 09:26 AM EDT RP Assessment and Plan (1) Syncope and collapse: Status: Acute Plan 73-year-old man admitted with possible TIA versus stroke and alcohol withdrawal symptoms Weakness, unspecified Question of TIA Seen by Physical therapy with question of left-sided weakness and facial droop Symptoms not noted during examination Head CT negative for acute abnormality Seen by neurology> no focal findings of stroke, get EEG Alcohol withdrawal Patient reports last drink was Noted tremors and anxiety Started on phenobarbital protocol Continue folic acid, thiamine and multivitamin Monitor for withdrawal symptoms closely Addiction medicine consultation Fall Mechanical fall at home without loss of consciousness Head CT and cervical spine CT negative for acute abnormality Seen by Physical therapy in the ED, recommend STR Hypomagnesemia Repleted with a total of 2 g of IV magnesium Will recheck magnesium in the morning Hyponatremia Mild Monitor LACY on CKD stage 3A Likely secondary to dehydration Recently started on Lasix for fluid overload Nephrology consultation Hold Lasix Thrombocytopenia, chronic Likely secondary to alcohol use Atrial fibrillation Not on anticoagulation due to history of hemophilia sign continue metoprolol BPH Continue finasteride and terazosin Hyperlipidemia Continue asa, statin Mental health Continue home medications History of Crohn's disease Ileostomy noted Obesity class 1. BMI 31.2 Discussed importance of weight management as this may be contributing to worsening of other comorbidities DVT prophylaxis with pneumatic compression boots Full code Quality Stroke Does the patient have a stroke diagnosis?: No VTE Prior VTE?: No VTE Risk Level:: Medical - moderate - high VTE Device Contraindication: N/A - Device Ordered VTE Drug Contraindication: Treatment Not Indicated
[2024-06-29] MEDS: Multivitamin TABLET 1 TAB PO (11:27)
[2024-06-29] MEDS: Thiamine HCL 100 MG TABLET PO (11:27)
--- NOTE | 2024-06-29 11:41 | PHA.MEDREC ---
Pharmacy Consult ? Medication Reconciliation Pharmacy has completed the medication reconciliation. Spoke with patient and over the phone to confirm medications. He was told by his doctor to decrease his potassium from 2 tabs BID to 2 tabs with dinner. He last took his medications yesterday morning.
[2024-06-29] MEDS: Magnesium Sulfate/D5W 1 GM/100 ML PIGGYBACK IV (11:43)
--- NOTE | 2024-06-29 12:02 | P.CNNE_ITS ---
History of Present Illness Data of Consult Service Date: 06/29/24 Primary Care Provider: Jennifer Parikh MD HPI Reason for consult: WEAKNESS 73 YEARS OLD MAN WITH CHRONIC RENAL INSUFFICIENCY AND CHRONIC ALCOHOL DRINKING WAS BROUGHT TO HOSPITAL AFTER HE FELL AT HOME. THERE WAS NO DOCUMENTATION OF LOSS OF CONSCIOUSNESS OR CONVULSION. THERE WAS CONCERNED ABOUT ALCOHOL ABUSE. WHILE HE WAS HERE HE WAS NOTED TO HAVE WEAKNESS AND LETHARGY. Review of Systems 2 Review of Systems: NO RECENT COLD OR FLU-LIKE ILLNESS PMFSH Past Medical History Medical History (Updated 06/29/24 @ 12:04 by Luis Manuel Pierre MD) Hemophilia A Dyspnea on exertion Weakness Atrial flutter with rapid ventricular response LACY (acute kidney injury) Atrial fibrillation with rapid ventricular response Back pain Bilateral kidney stones Ileostomy in place Lymphangitis Edema of lower extremity Parastomal hernia Obesity (BMI 30-39.9) Nocturnal hypoxemia Restrictive lung disease Essential hypertension Hemophilia Loja cyst Renal stones History of cataract BPH (benign prostatic hyperplasia) Gout Crohn's disease Peripheral vascular disease Thrombocytopenia History of hepatitis C Cholelithiasis Osteopenia Family History Family History Father Prostate cancer Mother Diabetes Maternal Grandfather Factor VIII deficiency hemophilia Surgical History Surgical History S/P colectomy Status post ablation of incompetent vein using laser (01/13/23) H/O tooth extraction History of appendectomy History of urethral stent History of cataract surgery H/O wrist surgery Social History Social History (Updated 06/29/24 @ 10:54 by Farida Post NP) Household Members: Spouse Household Members Other:: 1 Housing: House Are you a primary home care assistant to a significant other at home: No Do you presently have visiting nurse or other home services: No Alcohol intake: current Alcohol intake frequency: holidays/special occasions only Alcohol type: beer Patient Tobacco Use Status: Never used Tobacco Tobacco use type: Cigarette Smoked in Last 30 Days: No e-Cigarette/Vaping Use: Never Used Second Hand Smoke Exposure: No Use of substances other than those prescribed or required for medical reasons: No Advance Directives: No Advance Directives Information Provided: No Do you have a plan to hurt others: No Plan Nutrition Risks: No Nutritional Risk service: No Current occupational status: retired Cognitive needs: No Hearing needs: No Vision needs: Yes Meds Allergies Allergy/AdvReac Type Severity Reaction Status Date / Time No Known Allergies Allergy Verified 06/28/24 14:27 Active Medications: Current Medications Acetaminophen (Acetaminophen 325 Mg Tablet) 650 mg PO Q6H PRN PRN Reason: Pain, Mild (Pain Scale 1-3), fever or headache Aspirin (Aspirin 81 Mg Tab.Chew) 81 mg PO DAILY [facility] Last Admin: 06/29/24 08:48 Dose: 81 mg Atorvastatin Calcium (Atorvastatin Calcium 10 Mg Tablet) 5 mg PO BEDTIME [facility] Calcium Carbonate (Calcium Carbonate 750 Mg Tab.Chew) 750 mg PO Q4H PRN PRN Reason: Heartburn Calcium Carbonate/Cholecalciferol (Calcium + Vitamin D 250 Mg Tablet) 500 mg PO DAILY [facility] Last Admin: 06/29/24 08:49 Dose: 500 mg Cyanocobalamin (Cyanocobalamin (Vitamin B-12) 1,000 Mcg Tablet) 1,000 mcg PO DAILY [facility] Doxazosin Mesylate (Doxazosin Mesylate 2 Mg Tablet) 4 mg PO BEDTIME [facility] Finasteride (Finasteride 5 Mg Tablet) 5 mg PO DAILY [facility] Last Admin: 06/29/24 08:48 Dose: 5 mg Folic Acid (Folic Acid 1 Mg Tablet) 1 mg PO DAILY [facility] Last Admin: 06/29/24 08:48 Dose: 1 mg Magnesium Hydroxide (Milk Of Magnesia 30 Ml Oral.Susp) 30 ml PO DAILY PRN PRN Reason: Constipation Melatonin (Melatonin 3 Mg Tablet) 6 mg PO BEDTIME PRN PRN Reason: Insomnia Metoprolol Tartrate (Metoprolol Tartrate 50 Mg Tablet) 50 mg PO BID [facility]; Protocol Last Admin: 06/29/24 08:48 Dose: 50 mg Multivitamins/Vitamin C (Multivitamin Tablet) 1 tab PO DAILY [facility] Last Admin: 06/29/24 11:27 Dose: 1 tab Non-Formulary Medication (Potassium Citrate) 20 meq PO DAILY [facility] Nystatin (Nystatin Powder 15 Gm Bottle) 1 appl TOPICAL DAILY PRN; Protocol PRN Reason: Skin Irritation Oxycodone HCl (Oxycodone Hcl Immed Release 5 Mg Tablet) 5 mg PO Q6H PRN PRN Reason: Pain, Severe (Pain Scale 7-10) Last Admin: 06/29/24 11:29 Dose: 5 mg Pharmacy Consult (Consult Rx Etoh Phenob Im/Po) 1 each MISCELLANE ONCE PRN; Protocol PRN Reason: Consult order Phenobarbital (Phenobarbital 30 Mg Tablet) 60 mg PO BID [facility]; Protocol Stop: 07/01/24 09:01 Phenobarbital (Phenobarbital 30 Mg Tablet) 30 mg PO BID [facility]; Protocol Stop: 07/03/24 09:01 Phenobarbital (Phenobarbital 30 Mg Tablet) 30 mg PO DAILY [facility]; Protocol Stop: 07/05/24 09:01 Phenobarbital Sodium (Phenobarbital Sodium 130 Mg/Ml Vial Im Q3hx2) 233 mg IM Q3H [facility]; Protocol Stop: 06/29/24 16:01 Polyethylene Glycol (Polyethylene Glycol 3350 17 Gm Powd.Pack) 17 gm PO DAILY PRN PRN Reason: Constipation Sertraline HCl (Sertraline Hcl 25 Mg Tablet) 25 mg PO DAILY [facility] Last Admin: 06/29/24 08:49 Dose: 25 mg Sodium Chloride (0.9 % Sodium Chloride Flush 3 Ml Syringe) 3 [facility] Thiamine HCl (Thiamine Hcl 100 Mg Tablet) 100 mg PO DAILY [facility] Last Admin: 06/29/24 11:27 Dose: 100 mg Home Medications ?Medication ?Instructions ?Recorded ?Confirmed ?Last Taken ?Type calcium carbonate 600 mg-vitamin 1 tab PO DAILY 08/03/20 06/28/24 06/28/24 History D3 5 mcg (200 unit) tablet (Calcium 600 + D(3)) nystatin 100,000 unit/gram topical 1 appl topical DAILY PRN Skin 08/04/22 06/28/24 Unknown History powder Irritation potassium citrate 10 mEq (1,080 20 meq PO DAILY@1700 12/28/23 06/29/24 Unknown History mg) tablet,extended release cyanocobalamin (vitamin B-12) 1,000 mcg PO DAILY 06/29/24 06/29/24 06/28/24 History 1,000 mcg tablet Physical Exam 2 Vital Signs: Vital Signs: Last Vital Signs Temp 98.9 F 06/29/24 11:59 Pulse 66 06/29/24 11:59 Resp 16 06/29/24 11:59 BP 92/44 L 06/29/24 11:59 Pulse Ox 97 06/29/24 11:59 O2 Del Method Room Air 06/29/24 11:59 BMI result Body Mass Index 31.2 Neuro: Other: HE IS ALERT AND AWAKE WITH NORMAL SPONTANEITY OF SPEECH FLUENCY COMPREHENSION AND AFFECT. FACE IS SYMMETRICAL. THERE IS NO FOCAL ARM OR LEG WEAKNESS. PLANTARS ARE FLEXOR. DEEP TENDON REFLEXES ARE ABSENT. SPEECH IS NORMAL. Results Labs 06/28/24 16:58 06/28/24 16:58 Labs: Short CBC 06/28/24 Range/Units 16:58 WBC 7.4 (4.8-10.8) X10*3/uL Hgb 12.4 L (14.0-18.0) g/dl Hct 34.8 L (42.0-52.0) % Plt Count 139 L (160-400) X10*3/uL BMP 06/28/24 16:58 Sodium 131 L Potassium 4.2 D Chloride 101 Carbon Dioxide 20 L BUN 14 Creatinine 1.52 H Calcium 9.4 D Liver Function 06/28/24 Range/Units 16:58 Total Bilirubin 1.0 (0.0-1.0) mg/dL AST 31 (5-37) U/L ALT 27 (0-40) U/L Alkaline Phosphatase 46 (39-117) U/L Albumin 3.8 (3.5-5.0) g/dL Urine 06/28/24 Range/Units 16:58 Urine Color Yellow Urine Appearance Clear Urine pH 5.5 (5.0-9.0) Ur Specific [place] 1.010 (1.005-1.025) Urine Protein Negative (Neg-Trace) mg/dL Urine Glucose (UA) Negative (Negative) mg/dL HEAD CT REVEALED MODERATELY SEVERE DIFFUSE ATROPHY AND MODERATE CHRONIC MICROVASCULAR ISCHEMIC CHANGES. Assessment and Plan (1) Syncope and collapse: Status: Acute 73 YEARS OLD MAN WHO FELL AT HOME AND WAS BROUGHT TO HOSPITAL. NO OBVIOUS ETIOLOGY WAS FOUND THOUGH HE HAS BEEN DRINKING ON REGULAR BASIS. AT THIS TIME THERE IS NO FOCAL FINDING TO SUGGEST A STROKE. SUPPORTIVE AND CONSERVATIVE TREATMENT AND AN EEG IS RECOMMENDED. Procedures Date of Service Date of Service: 06/29/24
[2024-06-29 12:43] LABS: Anion Gap 12 (12-20); Blood Urea Nitrogen 13 mg/dL (9-16); Calcium 9.1 mg/dL (8.4-10.2); Carbon Dioxide 22 mmol/L (22-29); Chloride 101 mmol/L (96-108); Creatinine Clr Calc Pharmacy 65.1; Estimated Glomerular Filt Rate 55; Glucose Random 105 mg/dL (60-115); Magnesium 1.7 mg/dL (1.6-2.6); Potassium 3.2 mmol/L (3.3-5.1); Sodium 132 mmol/L (135-145)
[2024-06-29] MEDS: PHENobarbitaL sodium 130 MG/ML VIAL IM Q3Hx2 233 MG IM ×2 (13:08→17:25)
[2024-06-29] MEDS: 0.9 % Sodium Chloride Flush 3 ML SYRINGE IVFLUSH ×2 (17:26→20:19)
[2024-06-29] MEDS: Atorvastatin Calcium 10 MG TABLET 5 MG PO (20:18)
[2024-06-29] MEDS: PHENobarbitaL 30 MG TABLET 60 MG PO (20:18)
[2024-06-29] MEDS: Doxazosin Mesylate 2 MG TABLET 4 MG PO (20:18)
[2024-06-29] MEDS: Flu Vacc TS2024-25(6mos up)/PF 0.5 ML SYRINGE IM (21:12)
[2024-06-30] VITALS (8 sets, daily range): BP systolic 90–131; BP diastolic 50–69; PULSE 65–79; RESP 16–20; TEMP 36–36.6; O2SAT 94–98
[2024-06-30] MEDS: oxyCODONE HCl Immed Release 5 MG TABLET PO ×4 (04:12→23:19)
[2024-06-30 06:24] LABS: MANUAL DIFF FLAG NO
[2024-06-30 06:43] LABS: Magnesium 1.7 mg/dL (1.6-2.6)
[2024-06-30 06:45] LABS: Alanine Aminotransferase 21 U/L (0-40); Albumin Level 3.5 g/dL (3.5-5.0); Alkaline Phosphatase 40 U/L (39-117); Anion Gap 12 (12-20); Aspartate Amino Transferase 33 U/L (5-37); Bilirubin Total 1.1 mg/dL (0.0-1.0); Blood Urea Nitrogen 14 mg/dL (9-16); Calcium 9.1 mg/dL (8.4-10.2); Carbon Dioxide 23 mmol/L (22-29); Chloride 103 mmol/L (96-108); Creatinine Clr Calc Pharmacy 60.6; Estimated Glomerular Filt Rate 51; Glucose Random 86 mg/dL (60-115); Potassium 3.9 mmol/L (3.3-5.1); Sodium 134 mmol/L (135-145); Total Protein 5.9 g/dL (6.5-8.0)
[2024-06-30 06:54] LABS: Basophils Percent Auto 0.6 % (0-2); Eosinophils Absolute Auto 0.1 X10*3/uL (0.0-0.4); Hematocrit 32.2 % (42.0-52.0); Hemoglobin 10.9 g/dl (14.0-18.0); Imm Gran Abs Auto 0.07 X10*3/uL (0.00-0.03); Imm Gran Pct Auto 1.1 % (0.0-0.4); Lymphocytes Absolute Auto 1.3 X10*3/uL (1.2-4.9); Lymphocytes Percent Auto 20.9 % (20-40); Mean Corpuscular HGB Conc 33.9 g/dl (31.0-36.0); Mean Corpuscular Hemoglobin 35.4 pg (27.0-33.0); Mean Corpuscular Volume 104.5 fL (80.0-98.0); Mean Platelet Volume 9.7 fL (9.4-12.4); Monocytes Absolute Auto 0.7 X10*3/uL (0.1-1.2); Monocytes Percent Auto 10.9 % (2-11); Neutrophils Absolute Auto 4.1 x10*3/uL (2.0-8.3); Neutrophils Percent Auto 64.5 % (45-73); Platelet Count 129 X10*3/uL (160-400); Red Blood Count 3.08 X10*6/uL (4.60-5.80); Red Cell Distribution Width 12.8 % (11.0-16.0); White Blood Count 6.4 X10*3/uL (4.8-10.8)
[2024-06-30] MEDS: Cyanocobalamin (Vitamin B-12) 1,000 MCG TABLET 1000 MCG PO (09:38)
[2024-06-30] MEDS: Aspirin 81 MG TAB.CHEW PO (09:39)
[2024-06-30] MEDS: Metoprolol Tartrate 50 MG TABLET PO (09:39)
[2024-06-30] MEDS: Folic Acid 1 MG TABLET PO (09:39)
[2024-06-30] MEDS: Multivitamin TABLET 1 TAB PO (09:39)
[2024-06-30] MEDS: Calcium + Vitamin D 250 MG TABLET 500 MG PO (09:39)
[2024-06-30] MEDS: Thiamine HCL 100 MG TABLET PO (09:39)
[2024-06-30] MEDS: Sertraline HCL 25 MG TABLET PO (09:39)
[2024-06-30] MEDS: PHENobarbitaL 30 MG TABLET 60 MG PO ×2 (09:40→20:48)
[2024-06-30] MEDS: Finasteride 5 MG TABLET PO (09:40)
[2024-06-30] MEDS: 0.9 % Sodium Chloride Flush 3 ML SYRINGE IVFLUSH ×3 (09:44→20:48)
--- NOTE | 2024-06-30 09:48 | HO.PM.IMPN ---
Subjective Subjective Date of Service: 06/30/24 Review of Systems Follow up fall, weakness better today, no pain Physical Exam Vital Signs: Vital Signs: Last Vital Signs Temp 97.0 F 06/30/24 07:39 Pulse 71 06/30/24 07:39 Resp 20 06/30/24 07:39 BP 131/69 06/30/24 07:39 Pulse Ox 96 06/30/24 07:39 O2 Del Method Room Air 06/30/24 07:39 BMI result Body Mass Index 31.4 Appearing in no acute distress lung sounds are clear to auscultation heart regular rate rhythm, clear S1, S2 positive bowel sounds, abdomen is soft, nontender neuro patient is alert x3, no focal deficits Objective Data Active Medications Acetaminophen (Acetaminophen 325 Mg Tablet) 650 mg PO Q6H PRN PRN Reason: Pain, Mild (Pain Scale 1-3), fever or headache Aspirin (Aspirin 81 Mg Tab.Chew) 81 mg PO DAILY [facility] Last Admin: 06/30/24 09:39 Dose: 81 mg Documented By: PHAN Atorvastatin Calcium (Atorvastatin Calcium 10 Mg Tablet) 5 mg PO BEDTIME [facility] Last Admin: 06/29/24 20:18 Dose: 5 mg Documented By: NIDIA Calcium Carbonate (Calcium Carbonate 750 Mg Tab.Chew) 750 mg PO Q4H PRN PRN Reason: Heartburn Calcium Carbonate/Cholecalciferol (Calcium + Vitamin D 250 Mg Tablet) 500 mg PO DAILY [facility] Last Admin: 06/30/24 09:39 Dose: 500 mg Documented By: PHAN Cyanocobalamin (Cyanocobalamin (Vitamin B-12) 1,000 Mcg Tablet) 1,000 mcg PO DAILY [facility] Last Admin: 06/30/24 09:38 Dose: 1,000 mcg Documented By: PHAN Doxazosin Mesylate (Doxazosin Mesylate 2 Mg Tablet) 4 mg PO BEDTIME [facility] Last Admin: 06/29/24 20:18 Dose: 4 mg Documented By: NIDIA Finasteride (Finasteride 5 Mg Tablet) 5 mg PO DAILY [facility] Last Admin: 06/30/24 09:40 Dose: 5 mg Documented By: PHAN Folic Acid (Folic Acid 1 Mg Tablet) 1 mg PO DAILY [facility] Last Admin: 06/30/24 09:39 Dose: 1 mg Documented By: PHAN Magnesium Hydroxide (Milk Of Magnesia 30 Ml Oral.Susp) 30 ml PO DAILY PRN PRN Reason: Constipation Melatonin (Melatonin 3 Mg Tablet) 6 mg PO BEDTIME PRN PRN Reason: Insomnia Metoprolol Tartrate (Metoprolol Tartrate 50 Mg Tablet) 50 mg PO BID [facility]; Protocol Last Admin: 06/30/24 09:39 Dose: 50 mg Documented By: PHAN Multivitamins/Vitamin C (Multivitamin Tablet) 1 tab PO DAILY [facility] Last Admin: 06/30/24 09:39 Dose: 1 tab Documented By: PHAN Non-Formulary Medication (Potassium Citrate) 20 meq PO DAILY [facility] Nystatin (Nystatin Powder 15 Gm Bottle) 1 appl TOPICAL DAILY PRN; Protocol PRN Reason: Skin Irritation Oxycodone HCl (Oxycodone Hcl Immed Release 5 Mg Tablet) 5 mg PO Q6H PRN PRN Reason: Pain, Severe (Pain Scale 7-10) Last Admin: 06/30/24 04:12 Dose: 5 mg Documented By: NIDIA Pharmacy Consult (Consult Rx Etoh Phenob Im/Po) 1 each MISCELLANE ONCE PRN; Protocol PRN Reason: Consult order Phenobarbital (Phenobarbital 30 Mg Tablet) 60 mg PO BID [facility]; Protocol Stop: 07/01/24 09:01 Last Admin: 06/30/24 09:40 Dose: 60 mg Documented By: PHAN Phenobarbital (Phenobarbital 30 Mg Tablet) 30 mg PO BID [facility]; Protocol Stop: 07/03/24 09:01 Phenobarbital (Phenobarbital 30 Mg Tablet) 30 mg PO DAILY [facility]; Protocol Stop: 07/05/24 09:01 Polyethylene Glycol (Polyethylene Glycol 3350 17 Gm Powd.Pack) 17 gm PO DAILY PRN PRN Reason: Constipation Sertraline HCl (Sertraline Hcl 25 Mg Tablet) 25 mg PO DAILY [facility] Last Admin: 06/30/24 09:39 Dose: 25 mg Documented By: PHAN Sodium Chloride (0.9 % Sodium Chloride Flush 3 Ml Syringe) 3 ml IVFLUSH QSHIFT [facility] Last Admin: 06/30/24 09:44 Dose: 3 ml Documented By: PHAN Thiamine HCl (Thiamine Hcl 100 Mg Tablet) 100 mg PO DAILY [facility] Last Admin: 06/30/24 09:39 Dose: 100 mg Documented By: PHAN Labs 06/30/24 05:46 06/30/24 05:46 Labs: Laboratory Results - last 24 hr 06/29/24 06/30/24 12:15 05:46 MCV 104.5 H MCH 35.4 H MCHC 33.9 RDW 12.8 Plt Count 129 L MPV 9.7 Immature Gran % (Auto) 1.1 H Neut % (Auto) 64.5 Lymph % (Auto) 20.9 [place] % (Auto) 10.9 Eos % (Auto) 2.0 Baso % (Auto) 0.6 Lymph # (Auto) 1.3 [place] # (Auto) 0.7 Eos # (Auto) 0.1 Baso # (Auto) 0.0 Abs Immat Gran (auto) 0.07 H Absolute Neuts (auto) 4.1 Absolute Nucleated RBC 0.000 Nucleated RBC % (auto) 0.0 Anion Gap 12 12 Estim Creat Clear Calc 65.1 60.6 Estimated GFR 55 51 Random Glucose 105 86 Calcium 9.1 9.1 Magnesium 1.7 1.7 Total Bilirubin 1.1 H AST 33 ALT 21 Alkaline Phosphatase 40 Total Protein 5.9 L Albumin 3.5 Assessment and Plan (1) Syncope and collapse: Status: Acute (2) Fall: Status: Acute Plan 73-year-old man admitted with possible TIA versus stroke and alcohol withdrawal symptoms Weakness, unspecified Seen by Physical therapy with question of left-sided weakness and facial droop Symptoms not noted during examination Head CT negative for acute abnormality Seen by neurology> no focal findings of stroke, obtain EEG ambulate with staff and OOB to chair Alcohol withdrawal Patient reports last drink was Noted tremors and anxiety continue phenobarbital protocol Continue folic acid, thiamine and multivitamin Monitor for withdrawal symptoms closely Addiction medicine consultation Fall Mechanical fall at home without loss of consciousness Head CT and cervical spine CT negative for acute abnormality Seen by Physical therapy in the ED, recommend STR Hypomagnesemia. Resolved Repleted with a total of 2 g of IV magnesium Hyponatremia Mild Monitor LACY on CKD stage 3A Likely secondary to dehydration Recently started on Lasix for fluid overload Nephrology consultation Hold Lasix Thrombocytopenia, chronic Likely secondary to alcohol use Atrial fibrillation Not on anticoagulation due to history of hemophilia continue metoprolol BPH Continue finasteride and terazosin Hyperlipidemia Continue asa, statin Mental health Continue home medications History of Crohn's disease Ileostomy noted Obesity class 1. BMI 31.2 Discussed importance of weight management as this may be contributing to worsening of other comorbidities DVT prophylaxis with pneumatic compression boots Attending Dr. Caldera Full code Quality Stroke Does the patient have a stroke diagnosis?: No VTE Prior VTE?: No VTE Risk Level:: Medical - moderate - high VTE Device Contraindication: N/A - Device Ordered VTE Drug Contraindication: Treatment Not Indicated
--- NOTE | 2024-06-30 10:33 | MHC.CM.PN ---
PT REPORTS HE LIVES WITH HIS AND IS INDEPENDENT WITH CARE HE HAS A CANE HE USES PRN PT SAYS HE HAS A HCP AT HOME, COPY REQUESTED PCP: SHANTHI PINEDA IMM DELIVERED DCP TBD: PT WAS IN THE ED [employer] [employer], [place] REFERRALS WERE MADE, HOWEVER, PT STATES HE IS NOT INTERESTED IN REHAB AND WOULD LIKE TO DC HOME WOULD TRANSPORT
[2024-06-30] MEDS: Acetaminophen 325 MG TABLET 650 MG PO (20:47)
[2024-06-30] MEDS: Atorvastatin Calcium 10 MG TABLET 5 MG PO (20:48)
--- NOTE | 2024-07-01 | EEG_ITS ---
This is a 16-channel EEG with an EKG lead. The patient is reported awake during the tracing. Background EEG rhythm is low to medium amplitude fast with no obvious asymmetry or paroxysmal tendency. Photic stimulation does not produce any significant abnormality. No definite sharp wave spikes or paroxysmal tendency noted. Cardiac lead does not reveal any significant abnormality. IMPRESSION: No significant abnormality noted on this EEG. MD ELBERT Gonsales/TEE / [id number]
[2024-07-01 03:44] VITALS: BP 110/52; PULSE 73; RESP 16; TEMP 36.3; O2SAT 98
--- NOTE | 2024-07-01 05:27 | PC.NURSE ---
Assumed care of patient at 19:00. Evening BP soft with SBP in low 100s, confirmed with manual. pt asymptomatic. Covering Dr. Crowe notified of evening vitals, BP trend from the day, and evening scheduled medications. MD orders to hold scheduled po lopressor and cardura. VSS overnight. Plan of care continues.
[2024-07-01] MEDS: Thiamine HCL 100 MG TABLET PO (07:29)
[2024-07-01] MEDS: Finasteride 5 MG TABLET PO (07:29)
[2024-07-01] MEDS: Folic Acid 1 MG TABLET PO (07:29)
[2024-07-01] MEDS: Multivitamin TABLET 1 TAB PO (07:29)
[2024-07-01] MEDS: Cyanocobalamin (Vitamin B-12) 1,000 MCG TABLET 1000 MCG PO (07:29)
[2024-07-01 07:30] VITALS: BP 125/58; PULSE 88
[2024-07-01] MEDS: 0.9 % Sodium Chloride Flush 3 ML SYRINGE IVFLUSH (07:30)
[2024-07-01] MEDS: Metoprolol Tartrate 50 MG TABLET PO (07:30)
[2024-07-01] MEDS: PHENobarbitaL 30 MG TABLET 60 MG PO (07:30)
[2024-07-01] MEDS: Aspirin 81 MG TAB.CHEW PO (07:30)
[2024-07-01] MEDS: Calcium + Vitamin D 250 MG TABLET 500 MG PO (07:30)
[2024-07-01] MEDS: Sertraline HCL 25 MG TABLET PO (07:30)
[2024-07-01 07:32] VITALS: BP 125/58; PULSE 75; RESP 20; TEMP 36.2; O2SAT 99
[2024-07-01] MEDS: oxyCODONE HCl Immed Release 5 MG TABLET PO ×2 (07:32→13:25)
--- NOTE | 2024-07-01 10:58 | P.PNIM_ITS ---
Subjective Subjective Date of Service: 07/01/24 Review of Systems Follow up fall, weakness better today, no pain Physical Exam 2 Vital Signs: Vital Signs: Last Vital Signs Temp 97.2 F 07/01/24 07:32 Pulse 75 07/01/24 07:32 Resp 20 07/01/24 07:32 BP 125/58 L 07/01/24 07:32 Pulse Ox 99 07/01/24 07:32 O2 Del Method Room Air 07/01/24 07:32 BMI result Body Mass Index 31.4 Appearing in no acute distress lung sounds are clear to auscultation heart regular rate rhythm, clear S1, S2 positive bowel sounds, abdomen is soft, nontender neuro patient is alert x3, no focal deficits Objective Data Active Medications Acetaminophen (Acetaminophen 325 Mg Tablet) 650 mg PO Q6H PRN PRN Reason: Pain, Mild (Pain Scale 1-3), fever or headache Last Admin: 06/30/24 20:47 Dose: 650 mg Documented By: NIDIA Aspirin (Aspirin 81 Mg Tab.Chew) 81 mg PO DAILY [facility] Last Admin: 07/01/24 07:30 Dose: 81 mg Documented By: YASMEEN Atorvastatin Calcium (Atorvastatin Calcium 10 Mg Tablet) 5 mg PO BEDTIME [facility] Last Admin: 06/30/24 20:48 Dose: 5 mg Documented By: NIDIA Calcium Carbonate (Calcium Carbonate 750 Mg Tab.Chew) 750 mg PO Q4H PRN PRN Reason: Heartburn Calcium Carbonate/Cholecalciferol (Calcium + Vitamin D 250 Mg Tablet) 500 mg PO DAILY [facility] Last Admin: 07/01/24 07:30 Dose: 500 mg Documented By: YASMEEN Cyanocobalamin (Cyanocobalamin (Vitamin B-12) 1,000 Mcg Tablet) 1,000 mcg PO DAILY [facility] Last Admin: 07/01/24 07:29 Dose: 1,000 mcg Documented By: YASMEEN Doxazosin Mesylate (Doxazosin Mesylate 2 Mg Tablet) 4 mg PO BEDTIME [facility] Last Admin: 06/30/24 20:46 Dose: Not Given Documented By: NIDIA Non-Admin Reason: Physician Held Med Finasteride (Finasteride 5 Mg Tablet) 5 mg PO DAILY [facility] Last Admin: 07/01/24 07:29 Dose: 5 mg Documented By: YASMEEN Folic Acid (Folic Acid 1 Mg Tablet) 1 mg PO DAILY [facility] Last Admin: 07/01/24 07:29 Dose: 1 mg Documented By: YASMEEN Magnesium Hydroxide (Milk Of Magnesia 30 Ml Oral.Susp) 30 ml PO DAILY PRN PRN Reason: Constipation Melatonin (Melatonin 3 Mg Tablet) 6 mg PO BEDTIME PRN PRN Reason: Insomnia Metoprolol Tartrate (Metoprolol Tartrate 50 Mg Tablet) 50 mg PO BID [facility]; Protocol Last Admin: 07/01/24 07:30 Dose: 50 mg Documented By: YASMEEN Multivitamins/Vitamin C (Multivitamin Tablet) 1 tab PO DAILY [facility] Last Admin: 07/01/24 07:29 Dose: 1 tab Documented By: YASMEEN Non-Formulary Medication (Potassium Citrate) 20 meq PO DAILY [facility] Nystatin (Nystatin Powder 15 Gm Bottle) 1 appl TOPICAL DAILY PRN; Protocol PRN Reason: Skin Irritation Oxycodone HCl (Oxycodone Hcl Immed Release 5 Mg Tablet) 5 mg PO Q6H PRN PRN Reason: Pain, Severe (Pain Scale 7-10) Last Admin: 07/01/24 07:32 Dose: 5 mg Documented By: YASMEEN Pharmacy Consult (Consult Rx Etoh Phenob Im/Po) 1 each MISCELLANE ONCE PRN; Protocol PRN Reason: Consult order Phenobarbital (Phenobarbital 30 Mg Tablet) 30 mg PO BID [facility]; Protocol Stop: 07/03/24 09:01 Phenobarbital (Phenobarbital 30 Mg Tablet) 30 mg PO DAILY [facility]; Protocol Stop: 07/05/24 09:01 Polyethylene Glycol (Polyethylene Glycol 3350 17 Gm Powd.Pack) 17 gm PO DAILY PRN PRN Reason: Constipation Sertraline HCl (Sertraline Hcl 25 Mg Tablet) 25 mg PO DAILY [facility] Last Admin: 07/01/24 07:30 Dose: 25 mg Documented By: YASMEEN Sodium Chloride (0.9 % Sodium Chloride Flush 3 Ml Syringe) 3 ml IVFLUSH QSHIFT [facility] Last Admin: 07/01/24 07:30 Dose: 3 ml Documented By: YASMEEN Thiamine HCl (Thiamine Hcl 100 Mg Tablet) 100 mg PO DAILY [facility] Last Admin: 07/01/24 07:29 Dose: 100 mg Documented By: YASMEEN Labs 06/30/24 05:46 06/30/24 05:46 Assessment and Plan (1) Syncope and collapse: Status: Acute (2) Fall: Status: Acute Plan 73-year-old man admitted with possible TIA versus stroke and alcohol withdrawal symptoms Weakness, unspecified Seen by Physical therapy with question of left-sided weakness and facial droop Symptoms not noted during examination Head CT negative for acute abnormality Seen by neurology> no focal findings of stroke, obtain EEG ambulate with staff and OOB to chair Alcohol withdrawal Patient reports last drink was Noted tremors and anxiety continue phenobarbital protocol Continue folic acid, thiamine and multivitamin Monitor for withdrawal symptoms closely Addiction medicine consultation Fall Mechanical fall at home without loss of consciousness Head CT and cervical spine CT negative for acute abnormality Seen by Physical therapy in the ED, recommend STR Hypomagnesemia. Resolved Repleted with a total of 2 g of IV magnesium Hyponatremia Mild Monitor LACY on CKD stage 3A. baseline Likely secondary to dehydration Recently started on Lasix for fluid overload Hold Lasix Thrombocytopenia, chronic Likely secondary to alcohol use Atrial fibrillation Not on anticoagulation due to history of hemophilia continue metoprolol BPH Continue finasteride and terazosin Hyperlipidemia Continue asa, statin Mental health Continue home medications History of Crohn's disease Ileostomy noted Obesity class 1. BMI 31.4 Discussed importance of weight management as this may be contributing to worsening of other comorbidities DVT prophylaxis with pneumatic compression boots Attending Dr. Caldera Full code Quality Stroke Does the patient have a stroke diagnosis?: No VTE Prior VTE?: No VTE Risk Level:: Medical - moderate - high VTE Device Contraindication: N/A - Device Ordered VTE Drug Contraindication: Treatment Not Indicated
--- NOTE | 2024-07-01 11:03 | MHC.CM.PN ---
CM met with pt, to discuss DCP. PT rec. rehab, pt said his plan is to go home and he does not want VNA services.
--- NOTE | 2024-07-01 11:15 | P.CONNP_ITS ---
History of Present Illness Reason for Consult Consult date: 07/01/24 Chief Complaint Chief complaint: TIA, AFIB and ETOH History of Present Illness Narrative: 73 y/o male with medical history of daily etoh use (reports long-term 3 beers daily), hemophilia A, afib, nephrolithiasis, HTN, BPH, gout, Crohn's disease, PVD, thrombocytopenia, hx Hep C, cholelithiasis, osteopenia. Pt here after fall at home, left-sided weakness/facial droop concern for stroke/TIA, alcohol withdrawal, LACY Pt seen by neurology, no focal findings of stroke, plan for EEG pt is on phenobarbital for etoh withdrawal, reports feeling well with medication low magnesium and sodium on admission, likely secondary to alcohol use sodium trending up, yesterday 134 (likely beer potomania) magnesium normalized with repletion creatinine 1.52 on admission on 06/28, today 1.38. Pt's baseline runs around 1.2- 1.3. Of note he did have a significant LACY for which he was hospitalized in August 2023, baseline has been 1.2-1.3 since that time. pt reports he is feeling well at bedside today denies shortness of breath denies muscle cramps, nasuea/vomiting denies flank pain, reports urinating comfortably/regularly with urinal - reports hx of renal stones for which he gets regular US checks with urology. denies current symptoms. reports chronic LE edema- he reports that edema today is better than usual at home/baseline. - lasix was held but being restarted for hypervoemia. Review of Systems Constitutional: Denies anorexia, Denies fever(s) and Denies weakness Cardiovascular: Denies no additional cardiovascular complaints and Denies dyspnea Respiratory: Reports no additional respiratory complaints and Denies dyspnea Gastrointestinal: Denies diarrhea Genitourinary: Denies hematuria, Denies oliguria, Denies dysuria, Denies flank pain, Denies urinary frequency and Denies urinary hesitancy Musculoskeletal: Denies tingling Skin/Breast: Denies rash Denies focal weakness, Denies tingling, Denies tremor(s) and Denies weakness PMFSH Past Medical History Medical History (Updated 07/01/24 @ 11:30 by Joanne Schultz, DNP, HOSTING ENGINEER-BC) Hemophilia A Dyspnea on exertion Weakness Atrial flutter with rapid ventricular response LACY (acute kidney injury) Atrial fibrillation with rapid ventricular response Back pain Bilateral kidney stones Ileostomy in place Lymphangitis Edema of lower extremity Parastomal hernia Obesity (BMI 30-39.9) Nocturnal hypoxemia Restrictive lung disease Essential hypertension Hemophilia Loja cyst Renal stones History of cataract BPH (benign prostatic hyperplasia) Gout Crohn's disease Peripheral vascular disease Thrombocytopenia History of hepatitis C Cholelithiasis Osteopenia Family History Family History Father Prostate cancer Mother Diabetes Maternal Grandfather Factor VIII deficiency hemophilia Surgical History Surgical History S/P colectomy Status post ablation of incompetent vein using laser (01/13/23) H/O tooth extraction History of appendectomy History of urethral stent History of cataract surgery H/O wrist surgery Social History Social History (Updated 06/29/24 @ 10:54 by Farida Post NP) Household Members: Spouse Household Members Other:: 1 Housing: House Are you a primary pet caretaker to a significant other at home: No Do you presently have visiting nurse or other home services: No Alcohol intake: current Alcohol intake frequency: holidays/special occasions only Alcohol type: beer Comment: no camera space available. Pt remains calm and cooperative, not impulsive Patient Tobacco Use Status: Never used Tobacco Tobacco use type: Cigarette e-Cigarette/Vaping Use: Never Used Second Hand Smoke Exposure: No service: No Current occupational status: retired Cognitive needs: No Hearing needs: No Vision needs: Yes Meds Allergies Allergy/AdvReac Type Severity Reaction Status Date / Time No Known Allergies Allergy Verified 06/28/24 14:27 Active Medications: Current Medications Acetaminophen (Acetaminophen 325 Mg Tablet) 650 mg PO Q6H PRN PRN Reason: Pain, Mild (Pain Scale 1-3), fever or headache Last Admin: 06/30/24 20:47 Dose: 650 mg Aspirin (Aspirin 81 Mg Tab.Chew) 81 mg PO DAILY [facility] Last Admin: 07/01/24 07:30 Dose: 81 mg Atorvastatin Calcium (Atorvastatin Calcium 10 Mg Tablet) 5 mg PO BEDTIME FRACISCO Last Admin: 06/30/24 20:48 Dose: 5 mg Calcium Carbonate (Calcium Carbonate 750 Mg Tab.Chew) 750 mg PO Q4H PRN PRN Reason: Heartburn Calcium Carbonate/Cholecalciferol (Calcium + Vitamin D 250 Mg Tablet) 500 mg PO DAILY [facility] Last Admin: 07/01/24 07:30 Dose: 500 mg Cyanocobalamin (Cyanocobalamin (Vitamin B-12) 1,000 Mcg Tablet) 1,000 mcg PO DAILY [facility] Last Admin: 07/01/24 07:29 Dose: 1,000 mcg Doxazosin Mesylate (Doxazosin Mesylate 2 Mg Tablet) 4 mg PO BEDTIME [facility] Last Admin: 06/30/24 20:46 Dose: Not Given Finasteride (Finasteride 5 Mg Tablet) 5 mg PO DAILY [facility] Last Admin: 07/01/24 07:29 Dose: 5 mg Folic Acid (Folic Acid 1 Mg Tablet) 1 mg PO DAILY [facility] Last Admin: 07/01/24 07:29 Dose: 1 mg Magnesium Hydroxide (Milk Of Magnesia 30 Ml Oral.Susp) 30 ml PO DAILY PRN PRN Reason: Constipation Melatonin (Melatonin 3 Mg Tablet) 6 mg PO BEDTIME PRN PRN Reason: Insomnia Metoprolol Tartrate (Metoprolol Tartrate 50 Mg Tablet) 50 mg PO BID [facility]; Protocol Last Admin: 07/01/24 07:30 Dose: 50 mg Multivitamins/Vitamin C (Multivitamin Tablet) 1 tab PO DAILY [facility] Last Admin: 07/01/24 07:29 Dose: 1 tab Non-Formulary Medication (Potassium Citrate) 20 meq PO DAILY [facility] Nystatin (Nystatin Powder 15 Gm Bottle) 1 appl TOPICAL DAILY PRN; Protocol PRN Reason: Skin Irritation Oxycodone HCl (Oxycodone Hcl Immed Release 5 Mg Tablet) 5 mg PO Q6H PRN PRN Reason: Pain, Severe (Pain Scale 7-10) Last Admin: 07/01/24 07:32 Dose: 5 mg Pharmacy Consult (Consult Rx Etoh Phenob Im/Po) 1 each MISCELLANE ONCE PRN; Protocol PRN Reason: Consult order Phenobarbital (Phenobarbital 30 Mg Tablet) 30 mg PO BID [facility]; Protocol Stop: 07/03/24 09:01 Phenobarbital (Phenobarbital 30 Mg Tablet) 30 mg PO DAILY [facility]; Protocol Stop: 07/05/24 09:01 Polyethylene Glycol (Polyethylene Glycol 3350 17 Gm Powd.Pack) 17 gm PO DAILY PRN PRN Reason: Constipation Sertraline HCl (Sertraline Hcl 25 Mg Tablet) 25 mg PO DAILY [facility] Last Admin: 07/01/24 07:30 Dose: 25 mg Sodium Chloride (0.9 % Sodium Chloride Flush 3 Ml Syringe) 3 ml IVFLUSH QSHIFT [facility] Last Admin: 07/01/24 07:30 Dose: 3 ml Thiamine HCl (Thiamine Hcl 100 Mg Tablet) 100 mg PO DAILY [facility] Last Admin: 07/01/24 07:29 Dose: 100 mg Home Medications ?Medication ?Instructions ?Recorded ?Confirmed ?Last Taken ?Type calcium carbonate 600 mg-vitamin 1 tab PO DAILY 08/03/20 06/28/24 06/28/24 History D3 5 mcg (200 unit) tablet (Calcium 600 + D(3)) nystatin 100,000 unit/gram topical 1 appl topical DAILY PRN Skin 08/04/22 06/28/24 Unknown History powder Irritation potassium citrate 10 mEq (1,080 20 meq PO DAILY@1700 12/28/23 06/29/24 Unknown History mg) tablet,extended release cyanocobalamin (vitamin B-12) 1,000 mcg PO DAILY 06/29/24 06/29/24 06/28/24 History 1,000 mcg tablet Physical Exam Vital Signs: Last Vital Signs Temp 97.2 F 07/01/24 07:32 Pulse 75 07/01/24 07:32 Resp 20 07/01/24 07:32 BP 125/58 L 07/01/24 07:32 Pulse Ox 99 07/01/24 07:32 O2 Del Method Room Air 07/01/24 07:32 BMI result Body Mass Index 31.4 Const General: comfortable and no acute distress Orientation/consciousness: oriented to person, oriented to place and oriented to time Neck Neck: Yes no JVD Resp Effort & Inspection: able to speak in complete sentences Auscultation: clear to auscultation bilaterally Cardio Jugular venous distension: no JVD Rate: regular rate Rhythm: regular rhythm Heart sounds: S1 normal heart sound present, S2 normal heart sound present and Murmur heart sound present GI Palpation (GI): Soft to palpation Rectal Exam - Male: No tenderness General: Yes no CVA tenderness Back/Spine/Pelvis Back: no CVA tenderness Skin Rashes: no rashes Neuro General: oriented to person, oriented to place and oriented to time Extrem General: Yes normal to inspection, Yes edema (BLE edema. ) and Yes pedal edema Results Lab Results 06/30/24 05:46 06/30/24 05:46 Lab results: Chemistry 06/28/24 06/29/24 06/30/24 16:58 12:15 05:46 Sodium 131 L 132 L 134 L Potassium 4.2 D 3.2 L D 3.9 D Carbon Dioxide 20 L 22 23 BUN 14 13 14 Creatinine 1.52 H 1.28 1.38 Calcium 9.4 D 9.1 9.1 Hematology 06/28/24 06/30/24 16:58 05:46 WBC 7.4 6.4 Hgb 12.4 L 10.9 L Plt Count 139 L 129 L Urinalysis 06/28/24 16:58 Urine Color Yellow Urine Appearance Clear Urine pH 5.5 Ur Specific Flushing 1.010 Urine Protein Negative Urine Glucose (UA) Negative Urine Ketones Negative Urine Blood Negative Urine Nitrite Negative Ur Leukocyte Esterase Negative Urine RBC 0-2 Urine WBC 0-5 Ur Squamous Epith Cells 3-5 Hyaline Casts 6-10 Assessment and Plan (1) CKD (chronic kidney disease) stage 3, GFR 30-59 ml/min: Qualifiers: Chronic kidney disease stage 3 subtype: stage 3a (GFR 45-59) Qualified Code(s): N18.31 - Chronic kidney disease, stage 3a Status: Acute (2) Hyponatremia: Status: Acute Plan Pt with LACY on CKD3a secondary to prerenal injury (dehydration, etoh use) renal function is close to baseline now with rehydration agree with plan to re-start diuretics to address hypervolemia hyponatremia likely secondary to beer potomania, recommend continuing with adequate hydration and avoiding alcohol going forward, suspect this will continue to improve with nutrition/hydration and avoidance of alcohol recommend continued monitoring blood pressures recommend continuing to monitor electrolytes and renal function recommend to continue to avoid nephrotoxic medications, including NSAIDs Discussed with Dr Rivera. Procedures Date of Service Date of Service: 07/01/24
[2024-07-01 14:53] VITALS: PULSE 130
--- NOTE | 2024-07-01 15:23 | MHC.RECOVRN ---
AUDIT-C Brief Intervention Pt had positive screen for unhealthy alcohol use on admission, subsequently met with t/w to discuss alcohol use and recovery supports/options. This contract writer met with patient to discuss current alcohol use and concerns related to increased risk of alcohol related problems.?Pt very difficult to engage in conversation regarding alcohol use, denies concern regarding alcohol use. Pt is not interested in reducing or abstaining from alcohol use. Pt reports 3 12 ounce beers daily x a couple years . Pt denies alcohol use has impacted health. Withdrawal History: reports he has experienced withdrawal before, does not report hx seizures Treatment History: does not disclose Supports:?does not disclose Discussed risk reduction strategies including drinking below the recommended limit. Provided pt with written resources including information on inpatient and outpatient treatment, NICO, harm reduction, and recovery coaching. Pt plans to review written resources provided and contact t/w if needed. Pt provided with t/w contact information if questions or concerns arise. Denies other questions or concerns at this time.?
--- NOTE | 2024-07-01 15:56 | P.DS_ITS ---
DS: Providers Provider Date of Service: 07/01/24 Date of admission: 06/29/24 10:47 Primary care physician: Jennifer Parikh MD Consults: 06/29/24 10:51 Consult to Neurology Routine Consulting Provider: [facility] Reason for consultation: ? TIA 06/29/24 11:02 Addiction Medicine Routine Consulting Provider: Addiction [facility]ing Reason for consultation: ETOH 06/29/24 11:08 Consult to Nephrology Routine Consulting Provider: [facility] Reason for consultation: lacy DS: Diagnosis Discharge Diagnosis (1) CKD (chronic kidney disease) stage 3, GFR 30-59 ml/min: Status: Acute (2) Hyponatremia: Status: Acute DS: Summary Hospital Course Hospital Course: History and physical as per admitting provider. 73-year-old man initially presented to the ER after a fall at home. She reports he was in his living room and fell forward and hit the left side of his forehead on the TV. He denied loss of consciousness, nausea, vomiting, diarrhea, chest pain, shortness breath, visual changes. He did mention that he had been feeling weak over the last few days, he does report that he drinks alcohol daily and his last drink was on because he had no appetite. His spouse was home at the time and immediately called emergency services. Initially plan was for case management evaluation for short-term rehab as patient did not feel safe going back home. However this morning he was evaluated by Physical therapy who noted left-sided weakness and left-sided facial droop, it was then decided that patient should be admitted. Head CT and cervical spine CT were both negative for any acute abnormality. During the physical examination the patient was not noted to have any weakness to upper or lower extremities or facial droop noted. Patient reported that both of his legs were weak at the time. Patient was also noted to have tremors and anxiety secondary to alcohol use. He reports drinking 3 beers a day and last drink was on . Patient was started on phenobarbital protocol in the ER. In the ER, he was noted to have mildly low sodium, likely secondary to alcohol use, magnesium was also low also likely secondary to alcohol use, LACY on CKD noted possibly secondary to Lasix that was started recently through his ship's carpenter. Patient received oxycodone, IV magnesium, Lasix and phenobarbital in the ER. Plan is to admit patient for further management and treatment of possible TIA and alcohol withdrawal symptoms. 73-year-old man treated for weakness, fall, alcohol withdrawal and multiple electrolyte abnormalities. The patient was not noted to have any infectious source. His weakness and falling were likely secondary to his alcohol use and he has been encouraged to stop drinking. For his alcohol use he was treated with phenobarbital protocol he did have noted tremors that have since improved from admission. Treated with folic acid, thiamine and multivitamin as well. Regarding his fall head CT was negative for any acute abnormality, he had 15 juan r placed to a laceration on the top of his head and had noted bruising to left knee. He was seen evaluated by Physical therapy who recommended short-term rehab however patient and his reported that they would rather him go home. He will be sent home with a walker. They also declined visiting nurse services and physical therapy at home. While the patient was in the ER he was seen by Physical therapy who thought that he had a left-sided facial droop and left- sided weakness. During the interview patient reported that it was both of his legs felt weak. He was not noted to have a facial droop. He was seen by Neurology would not think the symptoms were related to stroke. He had an EEG with results pending but no signs of seizures noted. Plan is for patient be discharged home. Hypomagnesemia. Resolved Repleted with a total of 2 g of IV magnesium Hyponatremia Mild LACY on CKD stage 3A. baseline Likely secondary to dehydration Recently started on Lasix for fluid overload Lasix stopped Thrombocytopenia, chronic Likely secondary to alcohol use Atrial fibrillation Not on anticoagulation due to history of hemophilia continue metoprolol BPH Continue finasteride and terazosin Hyperlipidemia Continue asa, statin Mental health Continue home medications History of Crohn's disease Ileostomy noted Obesity class 1. BMI 31.4 Discussed importance of weight management as this may be contributing to worsening of other comorbidities Time Attestation Discharge Coordination Time (in mins): 36 Quality: Safe Use of Opioids Does Pt have an Active Cancer Diagnosis on the Problem List?: No Quality: Stroke Does the patient have a stroke diagnosis?: No Physical Exam 2 Vital Signs: Vital Signs: Last Vital Signs Temp 97.2 F 07/01/24 07:32 Pulse 130 H 07/01/24 14:53 Resp 20 07/01/24 07:32 BP 125/58 L 07/01/24 07:32 Pulse Ox 99 09/30/24 07:32 O2 Del Method Room Air 07/01/24 07:32 BMI result Body Mass Index 31.4 Appearing in no acute distress head is normocephalic atraumatic eyes pupils are PERRLA sclera is anicteric mouth throat mucous membranes are intact and moist neck is supple no lymphadenopathy, no JVD noted lung sounds are clear to auscultation heart regular rate rhythm, clear S1, S2 positive bowel sounds, abdomen is soft, nontender neuro patient is alert x3, no focal deficits DS: Data Data Completed and Pending Completed studies during hospitalization [Text1]: Procedures Detoxification Services for Substance Abuse Treatment (08/17/23) Discharge Plan Discharge Anticipated Discharge Date/Time: 07/01/24 15:26 Patient Disposition: Home, Self-Care Discharge Diagnosis: Weakness Alcohol withdrawal Fall Hyponatremia LACY on CKD stage IIIA Referrals: Po,Jennifer Eraly MD [Primary Care Provider] - 1 Week Discharge Medications: New (YANIRA) hiren Misc See Rx Instructions .Route Qty: 1 0RF Rx Instructions: As directed Continued simvastatin 5 mg tablet 5 mg PO BEDTIME Qty: 30 4RF folic acid 1 mg tablet 1 mg PO DAILY Qty: 30 3RF metoprolol tartrate 50 mg tablet 50 mg PO BID 90 Days Qty: 180 3RF furosemide 20 mg tablet 20 mg PO DAILY Qty: 90 0RF nystatin 100,000 unit/gram powder 1 appl topical DAILY PRN (Reason: Skin Irritation) Rx Instructions: apply to ileostomy site topical 2 times a day; aspirin 81 mg Tablet,Chewable 81 mg PO DAILY Qty: 30 0RF cyanocobalamin (vitamin B-12) 1,000 mcg Tablet 1,000 mcg PO DAILY calcium carbonate-vitamin D3 [Calcium 600 + D(3)] 600 mg(1,500mg) -200 unit tablet 1 tab PO DAILY pyridoxine (vitamin B6) 100 mg tablet 100 mg PO DAILY 90 Days Qty: 90 3RF potassium citrate 10 mEq (1,080 mg) tablet extended release 20 meq PO DAILY@1700 finasteride 5 mg tablet 5 mg PO DAILY 90 Days Qty: 90 1RF terazosin 5 mg capsule 5 mg PO BEDTIME 90 Days Qty: 90 1RF sertraline 25 mg tablet 25 mg PO DAILY Qty: 30 2RF Discharge Orders: Discharge Order (Routine); Ordered 07/01/24 Ordered By: Farida Post Diet: Advance to usual diet Activity on Discharge: As tolerated Stand Alone Forms: Patient Portal Discharge page Print Language: Mohawk Activity Restrictions/Additional Instructions: You had 15 juan r placed on laceration to the top of your head Care Plan Goals: Stop drinking alcohol Follow up with your primary care provider Return to the ER or your primary care provider in 7-10 days to have juan r removed Health Concerns: Weakness Alcohol withdrawal Fall Hyponatremia LACY on CKD stage IIIA Plan of Treatment: Follow-up with primary care provider as needed Take all medications as prescribed Assessment: See discharge summary Patient Instructions: Laceration (ED), Fall Prevention for Older Adults (ED)
--- NOTE | 2024-07-01 16:03 | MHC.CM.PN ---
Pt has been medically cleared for DC. He will go home via private transport, plan is home, self care.
== END 2024-07-01 16:29 | disposition home or self-care (01) | DRG 896 ==
LOC: HO.ED 06-29 10:36 → HO.EDOVER 06-29 10:54 → HO.IMC 06-29 18:13
PROVIDERS: Physician Assistant; Admitting Provider Nurse Practitioner Acute Care; Emergency Provider Internal Medicine; PCP Internal Medicine; Visit Provider Nurse Practitioner Acute Care
DX: F10.139 Alcohol abuse with withdrawal, unspecified (principal); D66 Hereditary factor VIII deficiency; K50.90 Crohn's disease, unspecified, without complications; N17.9 Acute kidney failure, unspecified; E87.1 Hypo-osmolality and hyponatremia; I12.9 Hypertensive chronic kidney disease with stage 1 through stage 4 chronic kidney disease, or unspecified chronic kidney disease; N18.31 Chronic kidney disease, stage 3a; E83.42 Hypomagnesemia; I48.91 Unspecified atrial fibrillation; N40.0 Benign prostatic hyperplasia without lower urinary tract symptoms; E86.0 Dehydration; D69.59 Other secondary thrombocytopenia; E78.5 Hyperlipidemia, unspecified; E66.8 Other obesity; Z68.31 Body mass index [BMI] 31.0-31.9, adult; Z71.3 Dietary counseling and surveillance; S01.01XA Laceration without foreign body of scalp, initial encounter; W01.190A Fall on same level from slipping, tripping and stumbling with subsequent striking against furniture, initial encounter; Z20.822 Contact with and (suspected) exposure to COVID-19; Z93.2 Ileostomy status; Z79.82 Long term (current) use of aspirin; Z79.899 Other long term (current) drug therapy
CPT/HCPCS: 0241U; 36415; 70450; 71045; 72125; 73562; 80048; 80053; 80307; 81001; 83690; 83735; 83880; 84484; 85025; 85610; 85730; 90656; 93005; 95816; 97116; 97162; 99285; J2560; J3475

== ENCOUNTER → 2024-06-29 10:47 | Outpatient (BNV) | payer MEDICARE, BC, SELFPAY | PROVIDERS: Admitting Provider Nurse Practitioner Acute Care; Emergency Provider Internal Medicine; PCP Internal Medicine; Visit Provider Psychiatry & Neurology Neurology | DX: R55 Syncope and collapse (principal) | CPT/HCPCS: 99221 ==

== ENCOUNTER → 2024-06-29 10:47 | Outpatient (BNV) | payer MEDICARE, BC, SELFPAY | PROVIDERS: Admitting Provider Nurse Practitioner Acute Care; Emergency Provider Internal Medicine; PCP Internal Medicine; Visit Provider Nurse Practitioner Acute Care | DX: N17.9 Acute kidney failure, unspecified (principal); N18.31 Chronic kidney disease, stage 3a; E87.1 Hypo-osmolality and hyponatremia | CPT/HCPCS: 99223; 99232; 99239 ==

== ENCOUNTER → 2024-06-29 10:47 | Outpatient (BNV) | payer MEDICARE, BC, SELFPAY | PROVIDERS: Admitting Provider Nurse Practitioner Acute Care; Emergency Provider Internal Medicine; PCP Internal Medicine; Visit Provider Nurse Practitioner Family | DX: N18.31 Chronic kidney disease, stage 3a (principal); E87.1 Hypo-osmolality and hyponatremia | CPT/HCPCS: 99222 ==

== ENCOUNTER 2024-07-08 13:39 | Outpatient (AMB) | payer MEDICARE, BC, SELFPAY ==
--- NOTE | 2024-07-08 13:51 | AM.OFFWIN_ITS ---
Intake Vital Signs 07/08/24 13:55 Height 6 ft 1 in Weight 230 lb BMI 30.3 BP 128/80 Blood Pressure Location Lt brachial Position Sitting Pulse 74 Pulse Source Pulse Oximeter Pulse Oximetry (%) 98 Oxygen Delivery Method Room Air Intake Visit Reasons: EP remove juan r on his head Intake Note: Patient here to have juan r removed from top of head that were placed 1 week ago. Patient Tobacco Use Status: Never used Tobacco Allergies No Known Allergies Allergy (Verified 07/08/24 13:54) Do you need a note to return to daycare/school/sports/work: No HPI HPI Comments History of Present Illness Details Patient is a 73-year-old male with a past medical history of hemophilia on aspirin who hit his head on a bookcase 10 days ago, he bled significantly so he went to the emergency room where they placed 17 juan r to the top of his scalp. He states the area has been healing fine he has not noticed any fluid coming from the area or any warmth, he also states it is not particularly itchy. [facility] Medical History (Updated 07/08/24 @ 14:10 by Jen Martinez PA-C) CKD (chronic kidney disease) stage 3, GFR 30-59 ml/min Hemophilia A Dyspnea on exertion Weakness Atrial flutter with rapid ventricular response LACY (acute kidney injury) Atrial fibrillation with rapid ventricular response Back pain Bilateral kidney stones Ileostomy in place Lymphangitis Edema of lower extremity Parastomal hernia Obesity (BMI 30-39.9) Nocturnal hypoxemia Restrictive lung disease Essential hypertension Hemophilia Loja cyst Renal stones History of cataract BPH (benign prostatic hyperplasia) Gout Crohn's disease Peripheral vascular disease Thrombocytopenia History of hepatitis C Cholelithiasis Osteopenia Surgical History S/P colectomy Status post ablation of incompetent vein using laser (01/13/23) H/O tooth extraction History of appendectomy History of urethral stent History of cataract surgery H/O wrist surgery Family History Father Prostate cancer Mother Diabetes Maternal Grandfather Factor VIII deficiency hemophilia Social History (Updated 06/29/24 @ 10:54 by Farida Post NP) Household Members: Spouse Household Members Other:: 1 Housing: House Are you a primary healthcare representative to a significant other at home: No Do you presently have visiting nurse or other home services: No Alcohol intake: current Alcohol intake frequency: holidays/special occasions only Alcohol type: beer Comment: no camera space available. Pt remains calm and cooperative, not impulsive Patient Tobacco Use Status: Never used Tobacco Tobacco use type: Cigarette e-Cigarette/Vaping Use: Never Used Second Hand Smoke Exposure: No service: No Current occupational status: retired Cognitive needs: No Hearing needs: No Vision needs: Yes Review of Systems Const All systems reviewed & are unremarkable except as noted in HPI and below Physical Exam Vital Signs: Last Vital Signs Pulse 74 07/08/24 13:55 BP 128/80 07/08/24 13:55 Pulse Ox 98 07/08/24 13:55 Oxygen Delivery Method Room Air 07/08/24 13:55 BMI result Body Mass Index 30.3 Const General: cooperative, healthy appearing, comfortable, no acute distress and well developed Orientation/consciousness: patient oriented x3 Limitations: no limitations HEENT Other: Seventeen juanr intact on the parietal and front bone meet, no drainage noted, no erythema, multiple dried scabs in place Head: Yes normal to inspection Neck Neck: Yes normal visual inspection and Yes supple Neuro General: patient oriented x3 Assessment & Plan Assessment & Plan (1) Encounter for staple removal: Code(s): Z48.02 - Encounter for removal of sutures Plan: 17 juan r removed intact, patient tolerated procedure well, scant amount of bleeding which was controlled before patient left, applied bacitracin ointment area. Plan See above Coding Level of Care Code Est Pt Level 3 (00416) Diagnoses Encounter for staple removal Z48.02
[2024-07-08 13:55] VITALS: BP 128/80; PULSE 74; O2SAT 98; BMI 30.3
== END 2024-07-08 14:11 | disposition home or self-care (01) ==
PROVIDERS: PCP Internal Medicine; Visit Provider Physician Assistant
DX: S01.01XD Laceration without foreign body of scalp, subsequent encounter (principal); Z48.02 Encounter for removal of sutures

== ENCOUNTER → 2024-07-08 13:39 | Outpatient (BNVA) | payer MEDICARE, BC, SELFPAY | PROVIDERS: PCP Internal Medicine; Visit Provider Physician Assistant | DX: Z48.02 Encounter for removal of sutures (principal) | CPT/HCPCS: 99212 ==

== ENCOUNTER 2024-08-11 20:39 | Emergency (ER) | payer MEDICARE, BC, SELFPAY ==
--- NOTE | ~2024-08-11 | XR_ITS ---
EXAMINATION: XR CHEST CLINICAL INFORMATION: Shortness of breath. COMPARISON: June 28, 2024. TECHNIQUE: Frontal view of the chest was obtained. FINDINGS: The volumes are again seen to be low. The cardiomediastinal silhouette is stable. There is mild scarring or minimal subsegmental atelectasis at the lung bases similar to previous. The lungs are otherwise clear. The bony structures and the soft tissues are unremarkable. XR/XR chest 1V IMPRESSION: Low lung volumes. No acute cardiopulmonary disease. Electronically signed by: Henri Almanza MD 08/12/2024 12:14 AM [facility]
--- NOTE | ~2024-08-11 | CT_ITS ---
EXAMINATION: CT ABDOMEN AND PELVIS WITHOUT CONTRAST CLINICAL INFORMATION: Pain. Fall. COMPARISON: September 04, 2023 TECHNIQUE: Multidetector volumetric imaging was performed from the superior aspect of the liver through the pubic symphysis. Sagittal and coronal reformatted images were obtained on the technologist's workstation. This CT examination was performed using dose optimization techniques as appropriate, variously including the following: *Automated exposure control *Adjustment of mA and/or kV according to patient size (this includes techniques or standardized protocols for targeted exams where dose is matched to indication/reason for exam; i.e. extremities or head) *Use of iterative reconstruction technique DLP: 740 mGy-cm FINDINGS: LUNG BASES: There is scarring at both lung bases. LIVER, GALLBLADDER, AND BILIARY TREE: The liver is normal in size, shape, and attenuation. No focal hepatic lesion or biliary ductal dilatation is present. Multiple gallstones are noted. PANCREAS: Unremarkable. SPLEEN: Unremarkable. ADRENAL GLANDS: Unremarkable. KIDNEYS AND URETERS: The kidneys are normal in size, shape, and attenuation. Bilateral renal calcifications are again seen similar to the prior. There is a stable complex cyst mid pole left kidney measuring 3 cm. There is no hydronephrosis. BLADDER: Unremarkable. GASTROINTESTINAL TRACT: There has been a prior colectomy. ABDOMINAL WALL: There is a right mid to lower abdominal ostomy/defect containing numerous small bowel loops without bowel obstruction. LYMPH NODES: Normal. VASCULAR: Atherosclerotic plaque of the abdominal aorta. PELVIC VISCERA: Unremarkable. OSSEOUS STRUCTURES: The bony structures are osteopenic There is again seen kyphosis centered at the thoracolumbar junction. Chronic T12 and T10 fractures are noted. There is an acute burst type fracture of the L2 vertebral body. CT/CT abdomen pelvis wo IV con IMPRESSION: Acute burst type fracture of the L2 vertebral body. Cholelithiasis. Fleischner guidelines were followed. Electronically signed by: Henri Almanza MD 08/12/2024 02:42 AM KYM
[2024-08-11 21:16] VITALS: BP 126/69; PULSE 100; RESP 22; O2SAT 95; BMI 30.3
[2024-08-11 21:33] LABS: MANUAL DIFF FLAG NO
[2024-08-11 21:36] LABS: Basophils Percent Auto 0.3 % (0-2); Hemoglobin 12.9 g/dl (14.0-18.0); Imm Gran Abs Auto 0.09 X10*3/uL (0.00-0.03); Imm Gran Pct Auto 0.8 % (0.0-0.4); Lymphocytes Absolute Auto 1.5 X10*3/uL (1.2-4.9); Lymphocytes Percent Auto 12.7 % (20-40); Mean Corpuscular HGB Conc 34.9 g/dl (31.0-36.0); Mean Corpuscular Hemoglobin 33.3 pg (27.0-33.0); Mean Corpuscular Volume 95.6 fL (80.0-98.0); Mean Platelet Volume 9.7 fL (9.4-12.4); Monocytes Absolute Auto 0.9 X10*3/uL (0.1-1.2); Monocytes Percent Auto 7.8 % (2-11); Neutrophils Absolute Auto 9.2 x10*3/uL (2.0-8.3); Neutrophils Percent Auto 78.4 % (45-73); Platelet Count 163 X10*3/uL (160-400); Red Blood Count 3.87 X10*6/uL (4.60-5.80); Red Cell Distribution Width 12.8 % (11.0-16.0); White Blood Count 11.7 X10*3/uL (4.8-10.8)
[2024-08-11 21:54] LABS: Alanine Aminotransferase 28 U/L (0-40); Albumin Level 4.3 g/dL (3.5-5.0); Alkaline Phosphatase 58 U/L (39-117); Anion Gap 19 (12-20); Aspartate Amino Transferase 32 U/L (5-37); Bilirubin Total 1.1 mg/dL (0.0-1.0); Blood Urea Nitrogen 37 mg/dL (9-16); Calcium 10.3 mg/dL (8.4-10.2); Carbon Dioxide 16 mmol/L (22-29); Chloride 110 mmol/L (96-108); Creatinine Clr Calc Pharmacy 40.3; Estimated Glomerular Filt Rate 31; Glucose Random 132 mg/dL (60-115); Sodium 140 mmol/L (135-145)
[2024-08-11 22:44] LABS: Appearance Urine Clear; Color Urine Yellow; Glucose Urine UA Negative (Negative); Leukocyte Esterase Urine Negative (Negative); Nitrite Urine Negative (Negative); Specific Gravity - Urine 1.025 (1.005-1.025); UMIC TRIGGER UACC YES; Urine Blood Negative (Negative); Urine Ketones Trace mg/dL (Negative); Urine Protein 30 (1+) mg/dL (Neg-Trace)
[2024-08-11 22:54] LABS: Bacteria Urine None Seen (None Seen); Hyaline Casts Urine >20 /LPF (0-2); RBC Urine 0-2 /HPF (0-2); WBC Urine 0-5 /HPF (0-5)
[2024-08-12] VITALS (7 sets, daily range): BP systolic 71–149; BP diastolic 34–84; PULSE 87–101; RESP 16–20; TEMP 36.7–36.9; O2SAT 92–96
[2024-08-12 00:04] LABS: Influenza A PCR NEGATIVE (Negative); Influenza B PCR NEGATIVE (Negative); Resp Syncy Virus RNA Qual PCR NEGATIVE (Negative); SARS COV2 PCR INHOUSE NEGATIVE (Negative)
--- NOTE | 2024-08-12 00:43 | ED.BACK ---
HPI - Back Pain/Injury General Chief Complaint: Back Pain/Injury Stated Complaint: fall/lower back Time Seen by Provider: 08/11/24 23:18 Source: patient and family Mode of arrival: ambulatory Limitations: no limitations History of Present Illness ED Provider: Dr. Amber Allen HPI Narrative: Emergency room complaining of lower back pain after falling. According to the patient's , patient and his were in [facility]. Patient was in a hotel got up from bed went to urinate and started feeling lightheaded, patient states that he fell on his buttocks. Patient states that he has had multiple episodes in the past when he stands and feels lightheaded. Patient states that most of the pain is in the lumbar area. Denies hitting his head or losing consciousness. Patient did not hit his head. Patient is not on blood thinners but patient has history of hemophilia A. Related Data Home Medications ?Medication ?Instructions ?Recorded ?Confirmed calcium carbonate 600 mg-vitamin 1 tab PO DAILY 08/03/20 06/28/24 D3 5 mcg (200 unit) tablet (Calcium 600 + D(3)) nystatin 100,000 unit/gram topical 1 appl topical DAILY PRN Skin 08/04/22 06/28/24 powder Irritation cyanocobalamin (vitamin B-12) 1,000 mcg PO DAILY 06/29/24 06/29/24 1,000 mcg tablet Previous Rx's ?Medication ?Instructions ?Recorded pyridoxine (vitamin B6) 100 mg 100 mg PO DAILY 90 days #90 tabs 06/17/22 tablet aspirin 81 mg chewable tablet 81 mg PO DAILY #30 tabs 08/21/23 finasteride 5 mg tablet 5 mg PO DAILY 90 days #90 tabs 03/01/24 terazosin 5 mg capsule 5 mg PO BEDTIME 90 days #90 caps 03/01/24 folic acid 1 mg tablet 1 mg PO DAILY #30 tabs 06/11/24 sertraline 25 mg tablet 25 mg PO DAILY #30 tabs 06/18/24 furosemide 20 mg tablet 20 mg PO DAILY #90 tabs 06/25/24 metoprolol tartrate 50 mg tablet 50 mg PO BID 90 days #180 tabs 06/25/24 walker #1 ea 07/01/24 simvastatin 5 mg tablet 5 mg PO BEDTIME #30 tabs 07/22/24 potassium citrate 10 mEq (1,080 20 meq (2 x 10 mEq (1,080 mg)) PO 08/05/24 mg) tablet,extended release DAILY@1700 90 days #180 tabs Allergies Allergy/AdvReac Type Severity Reaction Status Date / Time No Known Allergies Allergy Verified 08/11/24 21:19 Review of Systems Review of Systems: Constitutional : No Weight loss, No Fever, No Chills, No Night Sweats, No Fatigue, No Malaise ENT/Mouth : No Hearing loss, No Ear Pain, No Nasal Congestion, No Sinus Pain, No Hoarseness, No sore throat, No Rhinorrhea, No Swallowing Difficulty Eyes: No Eye Pain, No Swelling, No Redness, No Foreign Body, No Discharge, No Vision Changes Cardiovascular : No Chest Pain, No SOB, No Dyspnea on Exertion, No Orthopnea, No Edema, No Palpitations Respiratory : No Cough, No Sputum, No Wheezing, No Smoke Exposure, No Dyspnea Gastrointestinal : No Nausea, No Vomiting, No Diarrhea, No Constipation, No abdominal Pain, No Hematochezia, No Melena Genitourinary : no irregular bleeding, No Dysuria, No Urinary Frequency, No Hematuria, No Urinary Incontinence, No Urgency, No Flank Pain, No Urinary Flow Changes, No Hesitancy Musculoskeletal : Complaining of sacral pain, No joint pain, No Myalgias, No Joint Swelling Skin : No Skin Lesions, No rash Neuro : No Weakness, No Numbness, No Paresthesias, No Loss of Consciousness, No Dizziness, No Headache Psych : No Anxiety/Panic, No Depression, No SI/HI/AH/VH, No Social Issues, Heme/Lymph: No Bruising, No Bleeding,No Lymphadenopathy Endocrine : No Polyuria, No Polydipsia, No Temperature Intolerance [facility] Past Medical History Medical History CKD (chronic kidney disease) stage 3, GFR 30-59 ml/min Hemophilia A Dyspnea on exertion Weakness Atrial flutter with rapid ventricular response LACY (acute kidney injury) Atrial fibrillation with rapid ventricular response Back pain Bilateral kidney stones Ileostomy in place Lymphangitis Edema of lower extremity Parastomal hernia Obesity (BMI 30-39.9) Nocturnal hypoxemia Restrictive lung disease Essential hypertension Hemophilia Loja cyst Renal stones History of cataract BPH (benign prostatic hyperplasia) Gout Crohn's disease Peripheral vascular disease Thrombocytopenia History of hepatitis C Cholelithiasis Osteopenia Surgical History S/P colectomy Status post ablation of incompetent vein using laser (01/13/23) H/O tooth extraction History of appendectomy History of urethral stent History of cataract surgery H/O wrist surgery Family History Family History Father Prostate cancer Mother Diabetes Maternal Grandfather Factor VIII deficiency hemophilia Social History Social History (Updated 06/29/24 @ 10:54 by Farida Post NP) Household Members: Spouse Household Members Other:: 1 Housing: House Are you a primary care process manager to a significant other at home: No Do you presently have visiting nurse or other home services: No Alcohol intake: current Alcohol intake frequency: holidays/special occasions only Alcohol type: beer Comment: no camera space available. Pt remains calm and cooperative, not impulsive Patient Tobacco Use Status: Never used Tobacco Tobacco use type: Cigarette e-Cigarette/Vaping Use: Never Used Second Hand Smoke Exposure: No Advance Directives: No Advance Directives Information Provided: Yes service: No Current occupational status: retired Cognitive needs: No Hearing needs: No Vision needs: Yes Physical Exam Vital Signs: Vital Signs: Last Vital Signs Temp 98.3 F 08/12/24 01:58 Pulse 87 08/12/24 01:58 Resp 16 08/12/24 01:58 BP 119/66 08/12/24 01:58 Pulse Ox 96 08/12/24 01:58 O2 Del Method Room Air 08/12/24 01:58 BMI result Body Mass Index 30.3 Const: Other: Appearance: Alert. Oriented X3. No acute distress. Eyes: Pupils equal, round and reactive to light. ENT: Pharynx normal. Neck: Normal inspection. Neck supple. No lymph nodes noted. No crepitus CVS: Normal heart rate and rhythm. Pulses normal. Normal S1 and S2 Respiratory: No respiratory distress. Breath sounds normal. No Wheezing. No rales Abdomen: Soft and nontender. No rigidity. No distention Back: Pain to palpation in lumbar area. No ecchymosis.. Skin: Skin warm and dry. Normal skin color. Normal skin turgor. Extremities: No lower extremity edema. No Lacerations. No Rash Neuro: Oriented X 3. No motor deficit. No sensory deficit. Moving all extremities. No slurred speech. CN 2 through 12 grossly intact Psych: calm, cooperative, normal affect Medications Administered Discontinued Medications Generic Name Dose Route Start Last Admin Trade Name S[place] PRN Reason Stop Dose Admin Sodium Chloride 1,000 mls @ 999 mls/hr 08/12/24 00:32 08/12/24 00:55 Ns IVCONT 08/12/24 01:32 999 mls/hr .Q1H1M ONE Administration Sodium Chloride 1,000 mls @ 999 mls/hr 08/12/24 01:12 08/12/24 01:21 Ns IVCONT 08/12/24 02:12 999 mls/hr .Q1H1M ONE Administration Morphine Sulfate 4 mg 08/12/24 00:32 08/12/24 00:55 Morphine Sulfate 4 Mg/Ml Cartridge IVPUSH 08/12/24 00:33 4 mg ONCE ONE Administration Protocol Medical Decision Making Medical Decision Making [facility] Narrative: My interpretation of labs: Patient's white blood cell count 11.7, hemoglobin 12.9 which is at patient's baseline. Patient's creatinine is 2.10. Patient does have history of chronic kidney disease. However, patient has baseline is approximately 1.3. Patient also reporting bilateral flank pain, states that it feels like he is passing a kidney stone. Patient's inability creatinine likely secondary to high output from the colostomy bag. Patient denies hematuria or dysuria, no fever or chills. -patient's blood pressure dropped from sitting 119/66 to standing 77/34 -patient receiving 2 L of normal saline. After IV fluids - recheck orthostatic vitals -recheck BNP 4 creatinine improvement -please follow-up on CT scan of the abdomen pelvis -patient is stable at this time 02:00, blood pressure 119/66, heart rate 87, oxygen saturation 96% on room air. -sign-out given to my colleague Dr. Callejas Differential Diagnosis Differential Diagnoses: The differential diagnosis associated with the presentation includes (Contusion, sacral fracture, UTI, pyelonephritis, renal colic, ureterolithiasis) Admission/Observation Consideration of admission/observation: Escalation of care including admission/observation considered (Given patient's low blood pressure with orthostatics, LACY, sacral pain, observation has been considered) Lab Data MDM Lab Attestation statement: I reviewed the patient's lab results. 08/11/24 21:29 08/11/24 21:29 Labs: Lab Results 08/11/24 08/11/24 08/11/24 Range/Units 21:29 22:37 23:22 WBC 11.7 H (4.8-10.8) X10*3/uL RBC 3.87 L D (4.60-5.80) X10*6/uL Hgb 12.9 L (14.0-18.0) g/dl Hct 37.0 L (42.0-52.0) % MCV 95.6 (80.0-98.0) fL MCH 33.3 H (27.0-33.0) pg MCHC 34.9 (31.0-36.0) g/dl RDW 12.8 (11.0-16.0) % Plt Count 163 D (160-400) X10*3/uL MPV 9.7 (9.4-12.4) fL Immature Gran % (Auto) 0.8 H (0.0-0.4) % Neut % (Auto) 78.4 H (45-73) % Lymph % (Auto) 12.7 L (20-40) % [place] % (Auto) 7.8 (2-11) % Eos % (Auto) 0.0 (0-4) % Baso % (Auto) 0.3 (0-2) % Lymph # (Auto) 1.5 (1.2-4.9) X10*3/uL [place] # (Auto) 0.9 (0.1-1.2) X10*3/uL Eos # (Auto) 0.0 (0.0-0.4) X10*3/uL Baso # (Auto) 0.0 (0.0-0.2) X10*3/uL Abs Immat Gran (auto) 0.09 H (0.00-0.03) X10*3/uL Absolute Neuts (auto) 9.2 H (2.0-8.3) x10*3/uL Absolute Nucleated RBC 0.000 (0.0-0.012) X10*3/uL Nucleated RBC % (auto) 0.0 (0.0-0.2) /100WBC Sodium 140 (135-145) mmol/L Potassium 5.0 D (3.3-5.1) mmol/L Chloride 110 H (96-108) mmol/L Carbon Dioxide 16 L (22-29) mmol/L Anion Gap 19 (12-20) BUN 37 H (9-16) mg/dL Creatinine 2.10 H (0.5-1.4) mg/dL Estim Creat Clear Calc 40.3 Estimated GFR 31 Random Glucose 132 H (60-115) mg/dL Calcium 10.3 H D (8.4-10.2) mg/dL Total Bilirubin 1.1 H (0.0-1.0) mg/dL AST 32 (5-37) U/L ALT 28 (0-40) U/L Alkaline Phosphatase 58 (39-117) U/L Total Protein 8.0 (6.5-8.0) g/dL Albumin 4.3 (3.5-5.0) g/dL Urine Color Yellow Urine Appearance Clear Urine pH 5.0 (5.0-9.0) Ur Specific [place] 1.025 (1.005-1.025) Urine Protein 30 (1+) H (Neg-Trace) mg/dL Urine Glucose (UA) Negative (Negative) mg/dL Urine Ketones Trace (Negative) mg/dL Urine Blood Negative (Negative) Urine Nitrite Negative (Negative) Ur Leukocyte Esterase Negative (Negative) Urine RBC 0-2 (0-2) /HPF Urine WBC 0-5 (0-5) /HPF Ur Squamous Epith Cells 3-5 (0-2) /HPF Urine Bacteria None Seen (None Seen) Hyaline Casts >20 (0-2) /LPF Ethyl Alcohol < 10 mg/dL Influenza Type A (PCR) NEGATIVE (Negative) Influenza Type B (PCR) NEGATIVE (Negative) RSV RNA Qual (PCR) NEGATIVE (Negative) SARS-CoV-2 RNA (RT-PCR) NEGATIVE (Negative) Critical Care Time Critical Care Time Critical Care Time: Yes Total Critical Care Time: 60 Attestation: I have personally provided critical care time. Time includes review of lab data, radiology results, discussion with consultants, and monitoring for potential decompensation. Intervention performed as documented. Discharge Plan Discharge Clinical Impression: LACY (acute kidney injury), Acute dehydration, Orthostatic hypotension, Lower back pain Patient Disposition: Still a Patient Prescriptions: No Action folic acid 1 mg tablet 1 mg PO DAILY Qty: 30 3RF metoprolol tartrate 50 mg tablet 50 mg PO BID 90 Days Qty: 180 3RF furosemide 20 mg tablet 20 mg PO DAILY Qty: 90 0RF simvastatin 5 mg tablet 5 mg PO BEDTIME Qty: 30 4RF potassium citrate 10 mEq (1,080 mg) tablet extended release 20 meq PO DAILY@1700 90 Days Qty: 180 1RF nystatin 100,000 unit/gram powder 1 appl topical DAILY PRN (Reason: Skin Irritation) Rx Instructions: apply to ileostomy site topical 2 times a day; aspirin 81 mg Tablet,Chewable 81 mg PO DAILY Qty: 30 0RF cyanocobalamin (vitamin B-12) 1,000 mcg Tablet 1,000 mcg PO DAILY (DME) [facility] See Rx Instructions .Route Qty: 1 0RF Rx Instructions: As directed calcium carbonate-vitamin D3 [Calcium 600 + D(3)] 600 mg(1,500mg) -200 unit tablet 1 tab PO DAILY pyridoxine (vitamin B6) 100 mg tablet 100 mg PO DAILY 90 Days Qty: 90 3RF finasteride 5 mg tablet 5 mg PO DAILY 90 Days Qty: 90 1RF terazosin 5 mg capsule 5 mg PO BEDTIME 90 Days Qty: 90 1RF sertraline 25 mg tablet 25 mg PO DAILY Qty: 30 2RF Print Language: Guatemalan
[2024-08-12] MEDS: Morphine Sulfate 4 MG/ML CARTRIDGE IVPUSH (00:55)
[2024-08-12] MEDS: 0.9 % Sodium Chloride 1,000 ML 999 ML IVCONT ×2 (00:55→01:21)
[2024-08-12 01:00] LABS: Ethanol < 10 mg/dL
[2024-08-12 03:07] LABS: Anion Gap 15 (12-20); Blood Urea Nitrogen 36 mg/dL (9-16); Calcium 8.7 mg/dL (8.4-10.2); Carbon Dioxide 15 mmol/L (22-29); Chloride 116 mmol/L (96-108); Creatinine Clr Calc Pharmacy 50.4; Estimated Glomerular Filt Rate 40; Glucose Random 112 mg/dL (60-115); Potassium 4.5 mmol/L (3.3-5.1); Sodium 141 mmol/L (135-145)
[2024-08-12] MEDS: Sodium Bicarbonate 8.4% 50 MEQ/50 ML SYRINGE IVPUSH (04:24)
[2024-08-12] MEDS: dexAMETHasone sod phosphate 10 MG/ML VIAL IVPUSH (04:29)
[2024-08-12] MEDS: HYDROmorphone HCl 1 MG/ML SYRINGE IVPUSH (04:30)
--- NOTE | 2024-08-12 05:31 | PC.NURSE ---
Report called to Pete RUIZ Rn. Pt/ aware of plan to transfer.
== END 2024-08-12 15:08 | disposition short-term general hospital (02) ==
PROVIDERS: Emergency Medicine; Emergency Provider Internal Medicine; PCP Internal Medicine
DX: S22.081A Stable burst fracture of T11-T12 vertebra, initial encounter for closed fracture (principal); R10.2 Pelvic and perineal pain; R06.02 Shortness of breath; E86.0 Dehydration; I95.1 Orthostatic hypotension; M54.50 Low back pain, unspecified; W18.30XA Fall on same level, unspecified, initial encounter; Y93.89 Activity, other specified; Y92.59 Other trade areas as the place of occurrence of the external cause; Y99.8 Other external cause status; Z51.81 Encounter for therapeutic drug level monitoring; Z79.899 Other long term (current) drug therapy; Z03.818 Encounter for observation for suspected exposure to other biological agents ruled out
CPT/HCPCS: 0241U; 36415; 71045; 74176; 80048; 80053; 80307; 81001; 85025; 96361; 96374; 96375; 99285; J1100; J1171; J2270

== ENCOUNTER 2024-08-27 09:35 | Emergency (ER) | payer MEDICARE, BC, SELFPAY ==
--- NOTE | ~2024-08-27 | XR_ITS ---
EXAMINATION: XR CHEST 11:45 AM CLINICAL INFORMATION: generalized weakness COMPARISON: None available. TECHNIQUE: Frontal view of the chest was obtained. FINDINGS: Patchy atelectasis is evident at the left lung base. There are low lung volumes. The cardiomediastinal silhouette is stable. XR/XR chest 1V IMPRESSION: Patchy left base atelectasis. Electronically signed by: Duncan Salmeron MD 08/27/2024 12:38 PM [facility]
[2024-08-27 09:43] VITALS: BP 90/63; PULSE 104; RESP 20; TEMP 37; O2SAT 98; BMI 30.3
[2024-08-27 11:37] VITALS: BP 150/73; PULSE 81; RESP 16; TEMP 36.6; O2SAT 99
--- NOTE | 2024-08-27 11:43 | ECG_ITS ---
Test Reason : GENERALIZED WEAKNESS Blood Pressure : / mmHG Vent. Rate : 073 BPM Atrial Rate : 073 BPM P-R Int : 200 ms QRS Dur : 088 ms QT Int : 396 ms P-R-T Axes : 000 -19 019 degrees QTc Int : 436 ms Artifact in tracing Normal sinus rhythm Probably normal EKG When compared with ECG of 28-JUN-2024 16:39, No significant change was found Referred By: Enoc Pop Electronically Signed By:MATA KENNEDY
--- NOTE | 2024-08-27 11:47 | ED.GENADULT ---
HPI - General Adult General Chief complaint: General Medical Stated complaint: Low BP, weakness Time Seen by Provider: 08/27/24 11:30 Source: patient and family ( ) Mode of arrival: ambulatory Limitations: no limitations History of Present Illness ED Provider: DR. Pop HPI narrative: 74-year-old male history of Crohn's disease with colectomy and ileostomy since age of 20,Recent fall with L-spine fracture recently was placed on oxycodone, history of hypotension taking midodrine, patient came back today for a feeling generalized weakness checked his blood pressure and he was hypotensive, patient do like oxycodone that he takes for pain. No chest pain, no headache, no blurry vision, no fever, no chills. Related Data Home Medications ?Medication ?Instructions ?Recorded ?Confirmed calcium 600 mg (as 1 tab PO DAILY 08/03/20 06/28/24 carbonate)-vitamin D3 5 mcg (200 unit) tablet (Calcium 600 + D(3)) nystatin 100,000 unit/gram topical 1 appl topical DAILY PRN Skin 08/04/22 06/28/24 powder Irritation cyanocobalamin (vitamin B-12) 1,000 mcg PO DAILY 06/29/24 06/29/24 1,000 mcg tablet Previous Rx's ?Medication ?Instructions ?Recorded pyridoxine (vitamin B6) 100 mg 100 mg PO DAILY 90 days #90 tabs 06/17/22 tablet aspirin 81 mg chewable tablet 81 mg PO DAILY #30 tabs 08/21/23 finasteride 5 mg tablet 5 mg PO DAILY 90 days #90 tabs 03/01/24 terazosin 5 mg capsule 5 mg PO BEDTIME 90 days #90 caps 03/01/24 folic acid 1 mg tablet 1 mg PO DAILY #30 tabs 06/11/24 sertraline 25 mg tablet 25 mg PO DAILY #30 tabs 06/18/24 furosemide 20 mg tablet 20 mg PO DAILY #90 tabs 06/25/24 metoprolol tartrate 50 mg tablet 50 mg PO BID 90 days #180 tabs 06/25/24 walker #1 ea 07/01/24 simvastatin 5 mg tablet 5 mg PO BEDTIME #30 tabs 07/22/24 potassium citrate 10 mEq (1,080 20 meq (2 x 10 mEq (1,080 mg)) PO 08/05/24 mg) tablet,extended release DAILY@1700 90 days #180 tabs Allergies Allergy/AdvReac Type Severity Reaction Status Date / Time No Known Allergies Allergy Verified 08/27/24 09:45 Review of Systems Review of Systems: all other systems are reviewed and are negative Constitutional: Reports as per HPI and Reports no additional constitutional complaints Eyes: Reports as per HPI and Reports no additional eye complaints Reports system reviewed and no additional complaints, except as documented Cardiovascular: Reports as per HPI and Reports no additional cardiovascular complaints Respiratory: Reports as per HPI and Reports no additional respiratory complaints Gastrointestinal: Reports as per HPI and Reports no additional gastrointestinal complaints Genitourinary: Reports no additional female genitourinary complaints Musculoskeletal: Reports no additional musculoskeletal complaints Skin/Breast: Reports system reviewed and no additional complaints, except as docu Psychiatric: Reports no additional psychiatric complaints Endocrine: Reports no additional endocrine complaints Hematologic/Lymphatic: Reports no additional hematologic/lymphatic complaints Allergic/Immunologic: Reports no additional allergic/immunologic complaints Reports system reviewed and no additional complaints, except as documented and Reports Abnormal speech present [facility] Past Medical History Medical History CKD (chronic kidney disease) stage 3, GFR 30-59 ml/min Hemophilia A Dyspnea on exertion Weakness Atrial flutter with rapid ventricular response LACY (acute kidney injury) Atrial fibrillation with rapid ventricular response Back pain Bilateral kidney stones Ileostomy in place Lymphangitis Edema of lower extremity Parastomal hernia Obesity (BMI 30-39.9) Nocturnal hypoxemia Restrictive lung disease Essential hypertension Hemophilia Loja cyst Renal stones History of cataract BPH (benign prostatic hyperplasia) Gout Crohn's disease Peripheral vascular disease Thrombocytopenia History of hepatitis C Cholelithiasis Osteopenia Surgical History S/P colectomy Status post ablation of incompetent vein using laser (01/13/23) H/O tooth extraction History of appendectomy History of urethral stent History of cataract surgery H/O wrist surgery Family History Family History Father Prostate cancer Mother Diabetes Maternal Grandfather Factor VIII deficiency hemophilia Social History Social History Household Members: Spouse Household Members Other:: 1 Housing: House Are you a primary career professional to a significant other at home: No Do you presently have visiting nurse or other home services: No Alcohol intake: current Alcohol intake frequency: does not drink Alcohol type: beer Comment: no camera space available. Pt remains calm and cooperative, not impulsive Patient Tobacco Use Status: Never used Tobacco Tobacco use type: Cigarette Smoked in Last 30 Days: No e-Cigarette/Vaping Use: Never Used Second Hand Smoke Exposure: No Use of substances other than those prescribed or required for medical reasons: No Advance Directives: Yes Advance Directives Information Provided: No Advance Directives on File: No service: No Current occupational status: retired Cognitive needs: No Hearing needs: No Vision needs: Yes Physical Exam ED Vital Signs: Vital Signs - 24 hr 08/27/24 09:43 08/27/24 11:37 Temperature 98.6 F 97.9 F Pulse Rate 104 H 81 Respiratory Rate 20 16 Blood Pressure 90/63 150/73 H Pulse Oximetry 98 99 Oxygen Delivery Method Room Air Room Air BMI result Body Mass Index 30.3 Vital signs have been reviewed and appear to be correct. Blood pressure elevated. Heart rate normal. Respiratory rate normal. Temperature normal. Oxygen saturation normal. Appearance: Alert. Oriented X3. No acute distress. Head: Normal external exam. Normocephalic. Atraumatic. No Khan signs noted. No raccoon eyes noted Eyes: PERRLA. EOMI. Conjunctiva and sclera normal. Eyelids normal. ENT: TM's Normal. Pharynx normal. Uvula midline. Moist mucous membranes. No trismus noted. No drooling noted. No muffled voice noted. Neck: Normal inspection. Neck supple. FROM. No adenopathy. Thyroid Normal. No meningeal signs. No neck mass noted. CVS: Normal heart rate and rhythm. Heart sound normal. No murmurs noted. Pulses normal throughout. Respiratory: No respiratory distress. Painless inspiration. Breath sounds normal. No wheezes/rales/rhonchi noted. Chest nontender. No accessory muscle usage noted or decreased air movement noted. Abdomen: Soft and nontender. Bowel sounds normal in all 4 quadrants. No distention noted. No organomegaly noted. No visible injury noted. Back: No CVA tenderness. Full range of motion noted. Skin: Skin warm and dry. Normal skin color. Normal skin turgor. No rashes/lesions/lacerations noted. Extremities: No lower extremity edema. Extremities exhibit normal range of motion. Extremities nontender. Neuro: Oriented X 3. Cranial nerve exam: II-XII are grossly intact No motor deficit. No sensory deficit. Reflexes normal. Course Reevaluation(s) Reevaluation #1: Blood pressure while in the ED is normal, unremarkable physical exam otherwise, unremarkable labs, patient was instructed to follow-up with his PCP continue with his prescribed medications. Time: 14:02 Medications Administered Discontinued Medications Generic Name Dose Route Start Last Admin Trade Name Freq PRN Reason Stop Dose Admin Sodium Chloride 1,000 mls @ 999 mls/hr 08/27/24 11:42 08/27/24 12:05 Ns IV 08/27/24 12:42 999 mls/hr .Q1H1M ONE Administration Medical Decision Making Differential Diagnosis Differential Diagnoses: The differential diagnosis associated with the presentation includes ( Hypotension, oxycodone side effect, electrolyte derangement, severe anemia, dehydration , pneumonia, pneumothorax.) Admission/Observation Consideration of admission/observation: Escalation of care including admission/observation considered Lab Data MDM Lab Attestation statement: I reviewed the patient's lab results. 08/27/24 12:03 08/27/24 12:03 Labs: Lab Results 08/27/24 08/27/24 Range/Units 12:03 12:34 WBC 10.2 (4.8-10.8) X10*3/uL RBC 3.81 L (4.60-5.80) X10*6/uL Hgb 12.1 L (14.0-18.0) g/dl Hct 36.5 L (42.0-52.0) % MCV 95.8 (80.0-98.0) fL MCH 31.8 (27.0-33.0) pg MCHC 33.2 (31.0-36.0) g/dl RDW 12.9 (11.0-16.0) % Plt Count 243 D (160-400) X10*3/uL MPV 9.3 L (9.4-12.4) fL Immature Gran % (Auto) 0.8 H (0.0-0.4) % Neut % (Auto) 75.1 H (45-73) % Lymph % (Auto) 15.5 L (20-40) % [place] % (Auto) 7.7 (2-11) % Eos % (Auto) 0.6 (0-4) % Baso % (Auto) 0.3 (0-2) % Lymph # (Auto) 1.6 (1.2-4.9) X10*3/uL [place] # (Auto) 0.8 (0.1-1.2) X10*3/uL Eos # (Auto) 0.1 (0.0-0.4) X10*3/uL Baso # (Auto) 0.0 (0.0-0.2) X10*3/uL Abs Immat Gran (auto) 0.08 H (0.00-0.03) X10*3/uL Absolute Neuts (auto) 7.7 (2.0-8.3) x10*3/uL Absolute Nucleated RBC 0.000 (0.0-0.012) X10*3/uL Nucleated RBC % (auto) 0.0 (0.0-0.2) /100WBC Sodium 135 (135-145) mmol/L Potassium 4.0 (3.3-5.1) mmol/L Chloride 106 (96-108) mmol/L Carbon Dioxide 18 L (22-29) mmol/L Anion Gap 15 (12-20) BUN 15 (9-16) mg/dL Creatinine 1.30 (0.5-1.4) mg/dL Estim Creat Clear Calc 64.1 Estimated GFR 54 Random Glucose 85 (60-115) mg/dL Calcium 9.2 (8.4-10.2) mg/dL Total Bilirubin 0.8 (0.0-1.0) mg/dL Direct Bilirubin 0.4 (0.0-0.5) mg/dL AST 30 (5-37) U/L ALT 15 (0-40) U/L Alkaline Phosphatase 105 (39-117) U/L Troponin I High Sens 4.1 D (<3.5-35.0) ng/L B-Natriuretic Peptide 184 H (<100) pg/mL Total Protein 7.0 (6.5-8.0) g/dL Albumin 3.7 (3.5-5.0) g/dL Lipase 59 (8-78) U/L Urine Color Dark Yellow Urine Appearance Clear Urine pH 5.0 (5.0-9.0) Ur Specific [place] 1.025 (1.005-1.025) Urine Protein Trace (Neg-Trace) mg/dL Urine Glucose (UA) Negative (Negative) mg/dL Urine Ketones Negative (Negative) mg/dL Urine Blood Negative (Negative) Urine Nitrite Negative (Negative) Ur Leukocyte Esterase Negative (Negative) Influenza Type A (PCR) NEGATIVE (Negative) Influenza Type B (PCR) NEGATIVE (Negative) RSV RNA Qual (PCR) NEGATIVE (Negative) SARS-CoV-2 RNA (RT-PCR) NEGATIVE (Negative) Independent Interpretation I performed an independent interpretation of an: Plain X-Ray ( Chest:Patchy atelectasis is evident at the left lung base. There are low lung volumes. The cardiomediastinal silhouette is stable.) Radiology Impression Discussion of test interpretation with radiology: I have reviewed the radiologist's reading. Discharge Plan Discharge Clinical Impression: Back pain, Generalized weakness Patient Disposition: Home, Self-Care Instructions: Weakness (ED) Prescriptions: No Action folic acid 1 mg tablet 1 mg PO DAILY Qty: 30 3RF metoprolol tartrate 50 mg tablet 50 mg PO BID 90 Days Qty: 180 3RF furosemide 20 mg tablet 20 mg PO DAILY Qty: 90 0RF simvastatin 5 mg tablet 5 mg PO BEDTIME Qty: 30 4RF potassium citrate 10 mEq (1,080 mg) tablet extended release 20 meq PO DAILY@1700 90 Days Qty: 180 1RF nystatin 100,000 unit/gram powder 1 appl topical DAILY PRN (Reason: Skin Irritation) Rx Instructions: apply to ileostomy site topical 2 times a day; aspirin 81 mg Tablet,Chewable 81 mg PO DAILY Qty: 30 0RF cyanocobalamin (vitamin B-12) 1,000 mcg Tablet 1,000 mcg PO DAILY (DME) [place] [facility] [place] .Route Qty: 1 0RF Rx Instructions: As directed calcium carbonate-vitamin D3 [Calcium 600 + D(3)] 600 mg(1,500mg) -200 unit tablet 1 tab PO DAILY pyridoxine (vitamin B6) 100 mg tablet 100 mg PO DAILY 90 Days Qty: 90 3RF finasteride 5 mg tablet 5 mg PO DAILY 90 Days Qty: 90 1RF terazosin 5 mg capsule 5 mg PO BEDTIME 90 Days Qty: 90 1RF sertraline 25 mg tablet 25 mg PO DAILY Qty: 30 2RF Referrals: Po,Jennifer Early MD [Primary Care Provider] - Print Language: French
[2024-08-27] MEDS: 0.9 % Sodium Chloride 1,000 ML 999 ML IV (12:05)
[2024-08-27 12:07] LABS: MANUAL DIFF FLAG NO
[2024-08-27 12:10] LABS: Basophils Percent Auto 0.3 % (0-2); Eosinophils Absolute Auto 0.1 X10*3/uL (0.0-0.4); Eosinophils Percent Auto 0.6 % (0-4); Hematocrit 36.5 % (42.0-52.0); Hemoglobin 12.1 g/dl (14.0-18.0); Imm Gran Abs Auto 0.08 X10*3/uL (0.00-0.03); Imm Gran Pct Auto 0.8 % (0.0-0.4); Lymphocytes Absolute Auto 1.6 X10*3/uL (1.2-4.9); Lymphocytes Percent Auto 15.5 % (20-40); Mean Corpuscular HGB Conc 33.2 g/dl (31.0-36.0); Mean Corpuscular Hemoglobin 31.8 pg (27.0-33.0); Mean Corpuscular Volume 95.8 fL (80.0-98.0); Mean Platelet Volume 9.3 fL (9.4-12.4); Monocytes Absolute Auto 0.8 X10*3/uL (0.1-1.2); Monocytes Percent Auto 7.7 % (2-11); Neutrophils Absolute Auto 7.7 x10*3/uL (2.0-8.3); Neutrophils Percent Auto 75.1 % (45-73); Platelet Count 243 X10*3/uL (160-400); Red Blood Count 3.81 X10*6/uL (4.60-5.80); Red Cell Distribution Width 12.9 % (11.0-16.0); White Blood Count 10.2 X10*3/uL (4.8-10.8)
--- NOTE | 2024-08-27 12:22 | PC.NURSE ---
pt a&ox3, iv inserted, labs drawn, director of cardiac rehabilitation applied- tech to do ekg, pt c/o left lower back pain 06/11, lungs clear- rr equal/non labored, pt has 1+ edema to BLE- states that baseline for him and actually looks better than it has. pt has a rt iliostomy, walks at home with walker/cane, states hes just had increased weakness since being home. call [place] within reach, family at bedside, will continue to monitor
[2024-08-27 12:32] LABS: Alanine Aminotransferase 15 U/L (0-40); Albumin Level 3.7 g/dL (3.5-5.0); Alkaline Phosphatase 105 U/L (39-117); Anion Gap 15 (12-20); Aspartate Amino Transferase 30 U/L (5-37); Bilirubin Direct 0.4 mg/dL (0.0-0.5); Bilirubin Total 0.8 mg/dL (0.0-1.0); Blood Urea Nitrogen 15 mg/dL (9-16); Calcium 9.2 mg/dL (8.4-10.2); Carbon Dioxide 18 mmol/L (22-29); Chloride 106 mmol/L (96-108); Creatinine Clr Calc Pharmacy 64.1; Estimated Glomerular Filt Rate 54; Glucose Random 85 mg/dL (60-115); Lipase 59 U/L (8-78); Sodium 135 mmol/L (135-145)
[2024-08-27 12:35] LABS: B Type Natriuretic Peptide 184 pg/mL (<100); Troponin-I High Sensitivity 4.1 ng/L (<3.5-35.0)
[2024-08-27 12:44] LABS: Appearance Urine Clear; Color Urine Dark Yellow; Glucose Urine UA Negative (Negative); Leukocyte Esterase Urine Negative (Negative); Nitrite Urine Negative (Negative); Specific Gravity - Urine 1.025 (1.005-1.025); Urine Blood Negative (Negative); Urine Ketones Negative (Negative); Urine Protein Trace mg/dL (Neg-Trace)
[2024-08-27 13:17] LABS: Influenza A PCR NEGATIVE (Negative); Influenza B PCR NEGATIVE (Negative); Resp Syncy Virus RNA Qual PCR NEGATIVE (Negative); SARS COV2 PCR INHOUSE NEGATIVE (Negative)
[2024-08-27 14:07] VITALS: BP 150/70; PULSE 92; RESP 16; TEMP 36.8; O2SAT 97
[2024-08-27] MEDS: oxyCODONE HCl Immed Release 5 MG TABLET PO (14:31)
--- NOTE | 2024-08-27 14:32 | PC.NURSE ---
pt medicated for 04/10 back pain
[2024-08-27 14:50] VITALS: BP 151/68; PULSE 93; RESP 16; TEMP 36.9; O2SAT 97
== END 2024-08-27 14:51 | disposition home or self-care (01) ==
PROVIDERS: Emergency Provider Emergency Medicine; PCP Internal Medicine
DX: M54.50 Low back pain, unspecified (principal); R53.1 Weakness; I95.9 Hypotension, unspecified; R94.31 Abnormal electrocardiogram [ECG] [EKG]; R06.02 Shortness of breath; Z03.818 Encounter for observation for suspected exposure to other biological agents ruled out; Z79.899 Other long term (current) drug therapy
CPT/HCPCS: 0241U; 71045; 80048; 80076; 81003; 83690; 83880; 84484; 85025; 93005; 96360; 99284; 99285

== ENCOUNTER → 2024-08-27 11:43 | Outpatient (BNV) | payer MEDICARE, BC, SELFPAY | PROVIDERS: Emergency Provider Emergency Medicine; PCP Internal Medicine; Visit Provider Internal Medicine | DX: R53.1 Weakness (principal) | CPT/HCPCS: 93010 ==

== ENCOUNTER 2024-09-03 11:10 | Outpatient (AMB) | payer MEDICARE, BC, SELFPAY ==
--- NOTE | 2024-09-03 11:25 | MHC.OFFVIS ---
Intake Visit Reasons: 6m/US(had CT Done) Intake Note: Patient is present for 6m/US (HAD CT DONE) Urology Medication:POTASSIUM,VITMAIN B6,TERAZOSIN,FINASTERIDE Antibiotic Allergy:NONE Blood Thinner:ASPIRIN [employer] Required: No Allergies No Known Allergies Allergy (Verified 09/03/24 11:26) HPI Comments Details: Dirk is very pleasant male. He is a patient of Dr. Parikh. He seen for the following urologic conditions - renal stones - lower urinary tract symptoms Six-month follow-up Lower urinary tract symptoms managed with combination terazosin and finasteride Taken off terazosin after fall Nephrolithiasis managed with potassium citrate - dose decreased to 2 tabs daily with Nephrology Last PSA 12/22 1.6 - own and he is repeating every 2 years Reporting significant back pain. Confirmed on exam. Had been diagnosed with L2 compression fracture. Given 30 days of narcotic medication to allow sleep Lower urinary tract symptoms Initial symptom presentation - Nocturia x3, Weakness of stream, Progressive Prior medications include tamsulosin Finasteride plus terazosin 5 mg Nephrolithiasis/Urolithiasis: Secondary to Crohn's Remain on potassium citrate with vitamin B6 They are here for further evaluation of nephrolithiasis. Urolithiasis was diagnosed [facility] [place] 03/10/19 with right flank pain. The patient previously had kidney stones whose composition w 10/21 uric acid 80% CaOx 20%. Laboratory investigations include 11/21 , Hyperuricemia, borderline high calcium. Prior treatment(s) include Typically has had stones every 15-20 years starting in early 1970s 10/21 , right, ureteroscopy - distal. Prior imaging includes 03/20 , a CT (computed tomography) scan of the abdomen/pelvis (stone protocol) - multiple 2 mm stones on right side, distal right ureteric stone with hydroureteronephrosis, left 2-3 cm cyst 04/19 , a renal ultrasound, showing no evidence of stones - left 2-3 cm cyst, prostate 70 g 09/19 , a CT (computed tomography) scan of the abdomen/pelvis (stone protocol) - 5mm distal right stone with mild hydro 10/21 multiple right 5mm stones on US - 09/20 multiple right stones on ultrasound - 04/21 renal u/s minimal stone on right, left clear - 11/23 renal ultrasound no evidence of renal stones, hepatic steatosis - 05/23 renal ultrasound 9 mm right, 4 mm left, cyst on left kidney - 09/23 CT scan with multiple stones bilateral - 12/23 renal ultrasound shows resolution of stones on left side - 08/25 CT scan small stone left side 2 mm Current therapeutic plan - continue with fluid intake [facility] Medical History CKD (chronic kidney disease) stage 3, GFR 30-59 ml/min Hemophilia A Dyspnea on exertion Weakness Atrial flutter with rapid ventricular response LACY (acute kidney injury) Atrial fibrillation with rapid ventricular response Back pain Bilateral kidney stones Ileostomy in place Lymphangitis Edema of lower extremity Parastomal hernia Obesity (BMI 30-39.9) Nocturnal hypoxemia Restrictive lung disease Essential hypertension Hemophilia Loja cyst Renal stones History of cataract BPH (benign prostatic hyperplasia) Gout Crohn's disease Peripheral vascular disease Thrombocytopenia History of hepatitis C Cholelithiasis Osteopenia Surgical History S/P colectomy Status post ablation of incompetent vein using laser (01/13/23) H/O tooth extraction History of appendectomy History of urethral stent History of cataract surgery H/O wrist surgery Family History Father Prostate cancer Mother Diabetes Maternal Grandfather Factor VIII deficiency hemophilia Social History Household Members: Spouse Household Members Other:: 1 Housing: House Are you a primary physician primary care sports medicine to a significant other at home: No Do you presently have visiting nurse or other home services: No Alcohol intake: current Alcohol intake frequency: does not drink Alcohol type: beer Comment: no camera space available. Pt remains calm and cooperative, not impulsive Patient Tobacco Use Status: Never used Tobacco Tobacco use type: Cigarette e-Cigarette/Vaping Use: Never Used Second Hand Smoke Exposure: No service: No Current occupational status: retired Cognitive needs: No Hearing needs: No Vision needs: Yes Review of Systems Const Denies chills and Denies fever(s) Card Reports no additional complaints and Denies syncope Resp Denies cough GI Denies abdominal pain and Denies heartburn Reports as per HPI and Denies change in libido Neuro Denies syncope Psych Denies change in libido Endo Denies change in libido Physical Exam Const General: cooperative, healthy appearing, comfortable and no acute distress Orientation/consciousness: patient oriented x3 HEENT Face and sinus: Yes normal facial exam Mouth: moist mucous membranes Neck Neck: Yes normal visual inspection, Yes full ROM and Yes trachea midline Chest Chest palpation & inspection: normal inspection of the chest Resp Effort & Inspection: normal respiratory effort, able to speak in complete sentences and no respiratory distress GI Inspection: Yes normal to inspection Back/Spine/Pelvis Cervical Spine: normal cervical lordosis Thoracic/Lumbar Spine: thoracic and lumbar spine normal to inspection Skin General skin exam: no rashes or lesions noted Neuro General: patient oriented x3, gait normal, tone normal and moves all extremities Extrem General: Yes normal to inspection and Yes capillary refill normal Results AMB Urinalysis, Automated UA Leukoctes 0 Mitch/uL Last Edit by JAY Smyth on 09/03/24 11:44 UA Nitrite Negative Last Edit by JAY mSyth on 09/03/24 11:44 UA Urobilinogen 0.2 mg/dL Last Edit by JAY Smyth on 09/03/24 11:44 UA Protein 15 mg/dL Last Edit by JAY Smyth on 09/03/24 11:44 UA pH 5.0 Last Edit by JAY Smyth on 09/03/24 11:44 UA Blood 10 Curry/uL Last Edit by JAY Smyth on 09/03/24 11:44 UA Specific [place] 1.030 Last Edit by JAY Smyth on 09/03/24 11:44 UA Ketone Negative Last Edit by JAY Smyth on 09/03/24 11:44 UA Bilirubin 0 mg/dL Last Edit by JAY Smyth on 09/03/24 11:44 UA Glucose 0 mg/dL Last Edit by JAY Smyth on 09/03/24 11:44 Assessment & Plan Assessment & Plan (1) BPH (benign prostatic hyperplasia): Code(s): N40.0 - Benign prostatic hyperplasia without lower urinary tract symptoms Category: Medical (2) Renal stones: Comment: Right renal calculi December 2018 uric acid stone October 2019 stable 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 1 tab PO BEDTIME 30 days 30 tabs 0RF M48.46XA - Fatigue fracture of vertebra, lumbar region, initial encounter for fracture Patient Instructions: Imaging studies, laboratory and physical exam results were discussed and reviewed in detail. No major barriers to patient understanding were identified. An opportunity to ask questions regarding the treatment plan was provided. All questions were answered. The patient expressed understanding and agreement with the above treatment plan. The patient is aware they should contact our office by phone for worsening of their current condition or the appearance of new urologic symptoms. Compliance is encouraged with any medications and followup testing that is ordered. It is a privilege to participate in the urologic care of your patient. If you have any questions or concerns regarding treatment for the above conditions, or other urologic issues, please do not hesitate to contact me. The office telephone contact is [phone]. This note is constructed using voice recognition software. While every effort has been made to ensure accuracy methods study analyst errors may have been included. Yours sincerely, Dr Armani Rose MD, JENNIFER [facility] - Urology Providers of Expert, Compassionate Care for the Genitourinary System Coding Level of Care Code Est Pt Level 4 (01315) Diagnoses BPH (benign prostatic hyperplasia) N40.0 Renal stones N20.0 Lumbar stress fracture M48.46XA
--- OUTSIDE RECORDS SUMMARY | 2024-09-10 13:19 | XMS_ITS | Continuity of Care Document ---
Author Organization [facility] Address [address] [place] [id number]- Care Team Providers Care Intelligence Manager Name Role Phone Po Jennifer SHOEMAKER Primary Care Physician [phone] Encounter [facility] Date(s): 08/12/24 - 08/17/[address] [address]- Encounter Diagnosis Fracture of L2 vertebra(Final) - 08/12/24 Back pain(Final) - 08/12/24 Tremulousness(Final) - 08/12/24 Fall(Final) - 08/12/24 Discharge Disposition: A-D/C Home Attending Physician: Augusot Gomez MD Admitting Physician: Brenda Ledbetter MD Referring Physician: Not on Staff, Referring MD Encounter Type: Disch IP Allergies, Adverse Reactions, Alerts No Known Allergies Medications aspirin 81 mg oral tablet, chewable 1 tablet = 81 mg, Chew, Daily Start Date: 03/28/24 Status: Ordered Repeat number: 1 calcium (as carbonate)-vitamin D3 600 mg-10 mcg (400 intl units) oral capsule 1 capsule, By Mouth, 2 times a day, # 100 each, 0 Refills, Maintenance, 08/12/24 5:07:00 PM EST, Capsule, Partial fill upon patient request if the prescription is for a schedule II opioid drug. Start Date: 08/12/24 Status: Ordered Quantity: 100.0 Unit: each Repeat number: 1 finasteride 5 mg oral tablet 1 tablet = 5 mg, By Mouth, Daily, 0 Refills, Maintenance, 03/28/24 8:59:00 AM EDT, Partial fill uponpatient request if the prescription is for a schedule II opioid drug. Start Date: 03/28/24 Status: Ordered Repeat number: 1 folic acid 1 mg oral tablet 1 mg, 1, tablet, By Mouth, Daily, # 90 tablet, Refills 0, Maintenance, 08/12/24 5:01:00 PM EST, Partial fill upon patient request if the prescription is for a schedule II opioid drug. Start Date: 08/12/24 Status: Ordered Quantity: 90.0 Unit: tablet Repeat number: 1 midodrine 5 mg oral tablet 5 mg, By Mouth, 3 times a day, # 90 each, Refills 0, Tot. Refills 0, Maintenance, 08/16/24 10:26:00AM EST, Route to Pharmacy Electronically, [facility], Partial fill upon patient request if the prescription is for a schedule II opioid drug., 185, cm, 08/16/24 4:15:00 EST, Height, 98.4, kg, 08/12/24 23:16:00 EST, Dry Weight Start Date: 08/16/24 Stop Date: 09/15/24 Status: Ordered Quantity: 90.0 Unit: each Repeat number: 1 midodrine 5 mg oral tablet 5 mg, Tablet, By Mouth, Hold for SBP>140, 08/17/24 9:00:00 AM EST Start Date: 08/17/24 Stop Date: 08/17/24 Status: Completed Repeat number: 1 oxyCODONE 10 mg oral tablet, extended release 10 mg, 1, tablet, By Mouth, Every 8 hours, # 21 tablet, Refills 0, Tot. Refills 0, Maintenance, 08/16/24 10:26:00 AM EST, Route to Pharmacy Electronically, [facility], Partial fill uponpatient request if the prescription is for a schedule II opioid drug., 185, cm, 08/16/24 4:15:00 EST, Height, 98.4, kg, 08/12/24 23:16:00 EST, Dry Weight Start Date: 08/16/24 Stop Date: 08/23/24 Status: Ordered Quantity: 21.0 Unit: tablet Repeat number: 1 oxyCODONE 10 mg oral tablet, extended release 10 mg, ER Tablet, By Mouth, 08/17/24 5:00:00 AM EST Start Date: 08/17/24 Stop Date: 08/17/24 Status: Completed Repeat number: 1 oxyCODONE 5 mg oral tablet 7.5 mg, 1.5, tablet, By Mouth, Every 3 hours, PRN, for 7 days, For breakthrough pain between the ERoxycodone doses, # 30 tablet, Refills 0, Tot. Refills 0, Acute 08/24/24 9:01:00 AM EST, Pain , Severe, 08/17/24 9:01:00 AM EST, Route to Pharmacy Electronically, [facility] 3, Partial fill upon patient request if the prescription is for a schedule II opioid drug., 185, cm, 08/17/24 7:39:00 EST, Height, 98.4, kg, 08/12/24 23:16:00 EST, Dry Weight Start Date: 08/17/24 Stop Date: 08/24/24 Status: Ordered Quantity: 30.0 Unit: tablet Repeat number: 1 oxyCODONE 5 mg oral tablet 7.5 mg, Tablet, By Mouth, Every 3 hours, Hold for: sedation, PRN for Pain , Severe, Routine, 08/12/24 6:59:00 PM EST Start Date: 08/12/24 Stop Date: 08/17/24 Status: Discontinued Repeat number: 1 potassium citrate 10 mEq oral tablet 2 tablet = 20 mEq, By Mouth, 2 times a day Start Date: 03/28/24 Status: Ordered Repeat number: 1 sertraline 25 mg oral tablet 1 tablet = 25 mg, By Mouth, Daily, # 30 tablet, 0 Refills, Maintenance, 08/12/24 5:01:00 PM EST, Tablet, Partial fill upon patient request if the prescription is for a schedule II opioid drug. Start Date: 08/12/24 Status: Ordered Quantity: 30.0 Unit: tablet Repeat number: 1 simvastatin 5 mg oral tablet 1 tablet = 5 mg, By Mouth, Daily before dinner, 0 Refills, Maintenance, 03/28/24 8:58:00 AM EDT, Partial fill upon patient request if the prescription is for a schedule II opioid drug. Start Date: 03/28/24 Status: Ordered Repeat number: 1 tiZANidine 4 mg oral tablet 4 mg, By Mouth, 3 times a day, PRN, # 21 tablet, Refills 0, Tot. Refills 0, Maintenance, Spasm, 08/16/24 10:26:00 AM EST, Route to Pharmacy Electronically, [facility], Partial fill uponpatient request if the prescription is for a schedule II opioid drug., 185, cm, 08/16/24 4:15:00 EST, Height, 98.4, kg, 08/12/24 23:16:00 EST, Dry Weight Start Date: 08/16/24 Stop Date: 08/23/24 Status: Ordered Quantity: 21.0 Unit: tablet Repeat number: 1 Tylenol Extra Strength 500 mg oral tablet 2 tablet = 1,000 mg, By Mouth, 3 times a day, for 14 days, # 84 tablet, 0 Refills, Acute 08/31/24 10:26:00 AM EST, 08/17/24 10:26:00 AM EST, Tablet, [facility], Partial fill upon patient request if the prescription is for a schedule II opioid drug., 185, cm, 08/17/24 7:39:00 EST, Height, 98.4, kg, 08/12/24 23:16:00 EST, Dry Weight Start Date: 08/17/24 Stop Date: 08/31/24 Status: Ordered Quantity: 84.0 Unit: tablet Repeat number: 1 Vitamin B12 1000 mcg oral tablet 1 tablet = 1,000 mcg, By Mouth, Daily, # 30 tablet, 0 Refills, Maintenance, 08/12/24 5:06:00 PM EST, Tablet, Partial fill upon patient request if the prescription is for a schedule II opioid drug. Start Date: 08/12/24 Status: Ordered Quantity: 30.0 Unit: tablet Repeat number: 1 Vitamin B6 50 mg oral tablet 50 mg, 1, tablet, By Mouth, Daily, # 10 tablet, Refills 0, Maintenance, 08/12/24 5:07:00 PM EST, Partial fill upon patient request if the prescription is for a schedule II opioid drug. Start Date: 08/12/24 Stop Date: 08/22/24 Status: Ordered Quantity: 10.0 Unit: tablet Repeat number: 1 Procedures Procedure Date Related Diagnosis Body Site Status Appendectomy Completed Cataract surgery Complete d Ileostomy - stoma Complet ed Results Radiology Reports * Exam Date Time Procedure Performing Provider Status 08/13/24 11:04 AM Ankle Min 3 Views Right Jennifer Ni; Auth (Verified) Notes: (Ankle Min 3 Views Right) Reason For Exam: Trauma;Trauma RESULT: Ankle Min 3 Views Right Ankle Min 3 Views Right Reason: Trauma; Clinical Question(s): Fracture COMPARISON: None. FINDINGS: No evidence of acute or healing fracture or bone lesion. Intact ankle mortise and talar dome. No arthritic changes. Normal soft tissues. Advanced arterial calcifications. IMPRESSION: No acute osseous abnormality is seen involving the right ankle. WSN: [id number] Ordering Physician: Jj Holman Dictated By: Naun West MD, V Dictated Date/Time: 08/13/24 12:36 p Reviewed By: Naun West MD, V Signed By: Naun West MD, V Signed Date/Time: 08/13/24 12:36 pm Transcribed By: CSB Transcribed Date/Time: 08/13/24 12:35 pm * Exam Date Time Procedure Performing Provider Status 08/13/24 11:04 AM Elbow Min 3 Views Right Jennifer Nina; Auth (Verified) Notes: (Elbow Min 3 Views Right) Reason For Exam: Trauma RESULT: Elbow Min 3 Views Right Elbow Min 3 Views Right, 3 views Reason: Trauma; Clinical Question(s): Fracture COMPARISON: None. FINDINGS: No fracture or dislocation. No arthritic changes. No joint effusion. IMPRESSION: No definite acute osseous abnormality is seen involving the right elbow WSN: [id number] Ordering Physician: Jj Holman Dictated By: Naun West MD, V Dictated Date/Time: 08/13/24 12:35 p Reviewed By: Naun West MD, V Signed By: Naun West MD, V Signed Date/Time: 08/13/24 12:35 pm Transcribed By: RAZ Transcribed Date/Time: 08/13/24 12:35 pm * Exam Date Time Procedure Performing Provider Status 08/13/24 11:05 AM Elbow Min 3 Views Left Cristina Ni; Auth (Verified) Notes: (Elbow Min 3 Views Left) Reason For Exam: Trauma RESULT: Elbow Min 3 Views Left Elbow Min 3 Views Left, 3 views Reason: Trauma; Clinical Question(s): Fracture COMPARISON: None. FINDINGS: No fracture or dislocation. No arthritic changes. No joint effusion. IMPRESSION: No definite acute osseous abnormality is seen involving the left elbow. WSN: [id number] Ordering Physician: Jj Holman Dictated By: Naun West MD, V Dictated Date/Time: 08/13/24 12:34 p Reviewed By: Naun West MD, V Signed By: Naun West MD, V Signed Date/Time: 08/13/24 12:34 pm Transcribed By: RAZ Transcribed Date/Time: 08/13/24 12:31 pm * Exam Date Time Procedure Performing Provider Status 08/13/24 11:05 AM Knee 1 or 2 Views Right Raine Jennifer phillips; Auth (Verified) Notes: (Knee 1 or 2 Views Right) Reason For Exam: Trauma RESULT: Knee 1 or 2 Views Right Knee 1 or 2 Views Right, 2 views Reason: Trauma; Clinical Question(s): Fracture COMPARISON: None. FINDINGS: No bone lesions or fractures. Mild tricompartmental degenerative osteoarthritis but no evidence of osteochondral defect or intra-articular loose body. No evidence of joint effusion. Advanced arterial calcifications. IMPRESSION: Mild tricompartmental degenerative osteoarthritis but no acute abnormality. WSN: [id number] Ordering Physician: Jj Holman Dictated By: Naun West MD, V Dictated Date/Time: 08/13/24 12:30 p Reviewed By: Naun West MD, V Signed By: Naun West MD, V Signed Date/Time: 08/13/24 12:30 pm Transcribed By: RAZ Transcribed Date/Time: 08/13/24 12:29 pm Vital Signs Most recent to oldest [Reference Range]: 1 2 3 Height 185 cm (08/17/24 7:39 AM) 185 cm (08/16/24 4:15 AM) 185 cm (08/15/24 11:26 PM) Weight 98.4 kg (08/12/24 11:12 PM) Oxygen Saturation [94-100 %] 100 % (08/17/24 7:39 AM) 99 % (08/17/24 3:00 AM) 96 % (08/16/24 7:00 PM) Pulse Rate [55-90 bpm] 92 bpm *H* (08/17/24 8:55 AM) 92 bpm *H* (08/17/24 7:39 AM) 89 bpm (08/17/24 3:00 AM) Body Mass Index [18.5-24.99 kg/m2] 28.75 kg/m2 *H* (08/12/24 11:12 PM) Blood Pressure [90-138/55-84 mm Hg] 115/73mm Hg (08/17/24 8:55 AM) 115/73mm Hg (08/17/24 7:39 AM) 114/59mm Hg (08/17/24 3:00 AM) Respiratory Rate [16-30 br/min] 20 br/min (08/17/24 8:54 AM) 18 br/min (08/17/24 7:39 AM) 18 br/min (08/17/24 4:21 AM) Temperature [96.8-100.4 DegF] 98.0 DegF (08/17/24 7:39 AM) 98.2 DegF (08/17/24 3:00 AM) 98.4 DegF (08/16/24 7:00 PM) Mode of Delivery (Oxygen) Room air (08/17/24 7:39 AM) Room air (08/17/24 3:00 AM) Room air (08/16/24 7:00 PM) Blood pressure sites Arm, right (08/17/24 7:39 AM) Arm, right (08/17/24 3:00 AM) Arm, right (08/16/24 7:00 PM) Temperature Route Oral (08/17/24 7:39 AM) Oral (08/17/24 3:00 AM) Oral (08/16/24 7:00 PM) Dry Weight 98.4 kg (08/12/24 11:12 PM) Social History Social History Type Response Smoking Status Never (less than 100 in lifetime) entered on: 08/12/24 Sex Sex Representation Male (finding) Consult note * Gretel DEL ROSARIO, Nidia Wilkins: PERFORM Event Display: Consult Authored Date: [id number] Patient: ??HALLIE JONES ? Age:??73 Years?Sex:??Male?:??1950?? Chief Complaint/Reason for Consult pt fell last night going to the bathroom, fell backwards onto his butt. L2-L3 fx found on scans. pttrauma transfer. History of Present Illness Hallie is a 73-year-old male??on ASA for a flutter who??presents as transfer from OSH after??being found to have an L2??fracture.?? Hallie reports that??he was ambulating to the bathroom on??early Monday morning at 2 AM when he became??lightheaded causing him to fall backwards onto his buttocks. ??Hereports that he did not immediately developed??midline low back pain after falling. ??He has been ambulatory since the fall and the pain will??radiate into the sides of his back when he is up and walking. ??He denies numbness/tingling of??lower extremities, weakness of lower extremities, pain in lower extremities, saddle anesthesias, difficulty with bladder or bowel. Review of Systems General: denies fever, chills, fatigue Cardiac: denies chest pain?? Pulmonary: denies SOB?? GI: Denies bowel incontinence : denies bladder retention, incontinence?? Musculoskeletal: +Back pain Neurologic: denies headache, lightheadedness, dizziness Physical Exam Vitals & Measurements T:??98.4?F?? HR:??88??(Peripheral)?? RR:??18?? BP:??137/79?? SpO2:??98%? General: appears stated age, awake, alert, and NAD HEENT: NC/AT, trachea midline Respiratory: Normal I:E Extremities: symmetric, no edema, no calf tenderness Skin: Warm, dry Neurologic: Mental status ?Awake, alert oriented to location, date and self ?Speech clear, fluent appropriate ?Follows simple and complex commands CN ?EOMI, PERRL, no nystagmus ?No focal weakness ?? Sensation intact Motor ?Normal bulk and tone ?Lower Extremities ?Hip Flexion:?5/5 R?5/5 L ?Knee Extension:?5/5 R?5/5 L ?Plantar Flexion:? 5/5 R?5/5 L ?Dorsiflexion:?5/5 R?5/5 L ?EHL:?5/5 R?5/5 L Sensation Intact to light touch throughout upper and lower extremities Assessment/Plan Hallie is a 73-year-old male??on ASA for a flutter who??presents as transfer from OSH after??being found to have an L2??fracture.?? Is exacerbated by movement. ??He has no focal motor or sensory deficits of lower extremities on exam.?? This is a stable fracture that does not require bracing or further neurosurgical intervention. ?? Recommendations: No acute neurosurgical intervention Optimize pain control Consider muscle spasm??as pain is worse with movement and spreads into his muscles Neurosurgery signing off -- refer back prn, no routine f/u ?Please page [phone] with any questions or concerns. ?Discussed with neurosurgery attending, Dr. Mata. ?? Problem List/Past Medical History Hemophilia A Atrial flutter Obesity Restrictive lung disease Hypertension, BPH Crohn's disease Procedure/Surgical History Ileostomy Home Medications Aspirin: CHEW AND SWALLOW 1 TABLET BY MOUTH DAILY Aspirin: 81 mg = 1 tablet, Daily Finasteride Meloxicam: TAKE 1 TABLET BY MOUTH DAILY Metoprolol: TAKE 1 TABLET BY MOUTH TWICE DAILY Potassium Citrate: TAKE 2 TABLETS BY MOUTH TWICE DAILY FOR 90 DAYS Pyridoxine: Daily Simvastatin Terazosin: TAKE 1 CAPSULE BY MOUTH AT BEDTIME Allergies NKA Social History Denies alcohol use, tobacco use, drug use Admission evaluation note * Brenda Ledbetter MD: MODIFY Brenda Ledbetter MD: MODIFY, MODIFY, MODIFY, MODIFY, MODIFY, MODIFY Event Display: Admission Note Authored Date: Patient: ??ROBERT, HALLIE ? Age:??73 Years?Sex:??Male?:??1950?? Chief Complaint/Reason for Consultation pt fell last night going to the bathroom, fell backwards onto his butt. L2-L3 fx found on scans. pttrauma transfer. History of Present Illness Hallie Jones is a 73-year-old male with history of hemophilia A, atrial flutter (not on anticoagulation due to hemophilia), BPH, Crohn's disease status post ileostomy, hepatitis C who was admitted as a transfer from [facility] due to L2 burst fracture. ?? History is obtained from chart review and from patient. Patient was visiting [facility] over .?? On 08/11/2024 around 2 AM he woke up to go to the bathroom, stood up, felt lightheaded, and fell.?Patient denies fully passing out, but did state that he felt like he was going to pass out.?? He states that he landed on his buttocks, but denies head strike.?? He does report??a fall last month.?? Because of that fall, he did strike his head and required juan r.?Since the first fall patient reports??bilateral shoulder pain that radiates down the back. ??Per chart review, patientendorses recent increase in tremulousness, shuffling gait over the last few years.?? also reports??arm and leg feeling and sleep as well as talking in sleep. ?? Patient was initially seen at [facility]. CT scan shows acute burst type fracture of the L2 vertebral body, osteopenic bone structures,??kyphosis centered at the thoracolumbar junction,??chronic T12 and T10 fractures, no hydronephrosis, cholelithiasis.??Chest x-ray showed low lung volumes, no acute cardiopulmonary disease.?Labwork notable for??potassium??5, chloride 110,??bicarb 16,??BUN 37, creatinine 2.1 (baseline appears to be around 1.3),??calcium 10.3,??UA unremarkable,??white count was 11.7, hemoglobin 12.9,??platelets 163.?? Patient was given??what appears to be 2 L normal saline,??morphine, Dilaudid, 10 mg of dexamethasone.?? Patient was subsequently transferred over to [facility] for neurosurgery evaluation. ?? On arrival patient was afebrile, with regular heart rate, regular respirations, stable blood pressures, saturating well on room air.?? Lab work notable for no leukocytosis, macrocytic anemia of 10.9,platelets of 133, INR 1.1, prolonged PTT, chloride 114, bicarb 17, BUN 33, creatinine 1.5, unremarkable LFTs and electrolytes.??Patient was given 2 doses of morphine and Tylenol in the ED. ?? Patient was evaluated neurosurgery who recommended no acute neurosurgical intervention, optimizing pain control, consider interventions for muscle spasms as pain is worse with movement.?? Patient wasalso evaluated by trauma surgery, who recommended admission to medicine for syncope workup, tertiary exam in the morning. ?? On evaluation patient states??that he has extreme lower back pain.?? The pain is not radiating down his legs. ??He denies any numbness or tingling in the legs.?? He states that he was having trouble getting out of bed. ??He states the morphine does help.?? At baseline he ambulates with a cane.??He does report decreased exercise tolerance over the last couple months.?? Otherwise he states thathe has been in his typical state of health. Review of Systems General:??Negative for fevers, chills, fatigue HEENT:??Negative for congestion, rhinorrhea, sore throat Cardiovascular:??Negative for chest pain, palpitations Respiratory:??Negative for shortness of breath, wheezing Gastrointestinal:??Negative for abdominal pain, nausea/vomiting, diarrhea/constipation Genitourinary:??Negative for dysuria, hematuria Neurologic:??+lightheadedness,??+presyncope?? Skin:??Negative for rashes or lesions MSK: +back pain?? Objective Vital Signs?? Temperature: 98.4 DegF (08/12/24 07:53:00) Temperature Route: Oral (08/12/24 07:53:00) Pulse Rate:??92 bpm??High (08/12/24 16:20:00) Respiratory Rate: 18 br/min (08/12/24 17:15:00) Systolic Blood Pressure: 94 mm Hg (08/12/24 16:20:00) Diastolic Blood Pressure:??52 mm Hg??Low (08/12/24 16:20:00) Blood pressure sites: Arm, right (08/12/24 16:20:00) Mean Arterial Pressure: 98 mm Hg (08/12/24 07:53:00) Pulse Pressure: 58 mm Hg (08/12/24 07:53:00) Oxygen Saturation: 95 % (08/12/24 16:20:00) Mode of Delivery (Oxygen): Room air (08/12/24 16:20:00) Early Warning Score: 6 (08/12/24 17:33:10) ?? Physical Exam General: Elderly male. ??Appears slightly uncomfortable. Head:??2 cm linear healing??laceration??to the top of the head, no juan r. Eyes: [place] conjunctiva. Anicteric sclera.?? Extraocular movement intact. Ears: Bilateral pinnae without discharge or lesions. Nose:?? No discharge or congestion. Throat/Mouth: MMM. Oral mucosa was pink and without any lesions. Cardiovascular: Physiologic S1 and S2. No murmurs, rubs or gallops could be auscultated. Respiratory: CTA bilaterally with good inspiratory effort and symmetric chest wall movement. No wheezes, rales, or rhonchi. Abdominal: Abdomen is??soft and non-distended. Positive bowel sounds in all four quadrants. No tenderness to palpation. ??Ileostomy to right lower quadrant. Musculoskeletal: Moving all 4 extremities equally. Vascular: Radial pulses are 2+??bilaterally. No peripheral edema. Neurologic: Awake, alert, interactive. No focal neurologic deficits.?? Mental Status: Alert and Oriented to person, place, time, situation Able to repeat phrases, follow commands, name objects Cranial Nerve exam: CNII: PERRLA.?? CNIII, IV, : Extraocular movement intact bilaterally. CNV: Facial sensation intact bilaterally. [place] and temporalis have strong tone with clenched jaw. CNVII: Symmetrical facial movements (smile, frown, eyebrow raise). Strong buccinator tone bilaterally. CNVIII: No gross hearing deficits. CNIX, X: Uvula midline.?? Symmetric palate rise. CNXI: Shoulder shrug symmetric. Sternocleidomastoid had 5/5 strength. CNXII: No tongue deviation on protrusion. Patient is able to move tongue left and right. Motor: 5 out of 5 strength in the upper and lower extremities,??though movement of the??right lowerextremity elicits back pain. Sensation: Sensation grossly intact. Cerebellar: Bilateral??tremors. Normal finger to nose test, with tremors.?Intact rapid alternating movements. Assessment/Plan Diagnoses Acute kidney injury superimposed on CKD ??(N17.9) Atrial flutter ??(I48.92) BPH (benign prostatic hyperplasia) ??(N40.0) Back pain ??(M54.9) Crohn disease ??(K50.90) Depression ??(F32.A) Fall ??(W19.XXXA) Fracture of L2 vertebra ??(S32.029A) HLD (hyperlipidemia) ??(E78.5) Hemophilia A ??(D66) Postural dizziness with presyncope ??(R42) Tremulousness ??(R25.1) ?? Assessment:??Hallie Jones is a 73-year-old male with history of hemophilia A, atrial flutter (not onanticoagulation due to hemophilia), BPH, Crohn's disease status post ileostomy, hepatitis C who wasadmitted as a transfer from [facility] due to L2 burst fracture. ?? Back pain (M54.9) ?Caused by??Fracture of L2 vertebra (S32.029A) ? Patient presenting with??an L2 burst type fracture resulting in back pain.??He was transferred from [place] to [facility] for neurosurgery evaluation.??Patient has been seen by neurosurgery and trauma surgery with no acute surgical intervention recommended. -Pain control with scheduled Tylenol,??as needed oxycodone 5 every 6 hours for moderate pain, as needed??0.5 IV Dilaudid??every 6 hours for??severe pain -Follow-up with trauma surgery tomorrow for tertiary evaluation -Consider tizanidine versus Flexeril??for control of muscle spasms per neurosurgery recommendations ?? Postural dizziness with presyncope (R42) Fall (W19.XXXA) Tremulousness (R25.1) ? Patient presenting with a fracture after a fall, with features concerning for possible??presyncope.??Patient felt lightheaded after standing resulting in his fall.??Patient also has a history of??what appears to be progressively worsening tremors for several years,??and he says that??he has been worried about Parkinson's.??There are reports of a shuffling gait.??He does have a history of a flutter, and is not anticoagulated??so??TIA could also??be the cause of his symptoms.??Going in and out of a flutter could also lead to syncope.??Currently he is in sinus rhythm with first-degree AV block.??On presentation to [place], he did??appear to have an LACY and CKD,??is now returned to baseline, indicating that he??may have been significantly dehydrated. -Cardiac telemetry to rule out??significant arrhythmia -Consider echo if he has not gotten an echo recently -PCP should refer patient to neurology for??outpatient Parkinson's workup -Encourage p.o. intake -Obtain orthostatic??vitals ?? 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 [employer] is Dr. Elier Dueñas. ?? -Continue aspirin -Continue metoprolol 50 mg twice daily -Day team to obtain records, obtain ECHO??if there no recent imaging ?? Acute kidney injury superimposed on CKD (N17.9):??Patient appears to have??CKD stage III.??Creatinine on arrival to [place] was significantly elevated from baseline.??It is now normalizing after somefluid resuscitation.?? Patient is on??furosemide 20 mg daily, for what appears to be more edema than CHF. -Encourage p.o. hydration -Avoid nephrotoxic medications -Renally dose appropriate medications -Monitor BMP -Patient does not appear fluid??overloaded on exam, will hold furosemide until creatinine reaches back to baseline ?? Crohn disease (K50.90):??Patient has history of Crohn's disease status post ileostomy.??He is not taking any medications for Crohn's disease. -Continue home ileostomy management ?? 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 -Monitor CBC -If there is a significant drop in his hemoglobin, will consider??repeat imaging of the back to assess for any hematomas??or bleeding into the joints ?? BPH (benign prostatic hyperplasia) (N40.0):??-Continue terazosin and finasteride ?? HLD (hyperlipidemia) (E78.5):??-Continue simvastatin ?? Depression (F32.A):??-Continue sertraline 25 mg? Quality Measures DVT PPx:??Hold chemical prophylaxis due to??hemophilia,??pneumatic compression boots Code Status: Full,??confirmed with patient at bedside Diet:??Cardiac diet HCP:??, Nguyễn, updated over the phone on 08/12? Patient seen and discussed with Attending, Dr. Ledbetter? Jane Mason MD PGY-3, Internal Medicine-Pediatrics Pager [phone], [employer] ?? The patient seen and examined on this date. The case reviewed in detail with admitting senior resident on this date. I reviewed and agree as above. Dvt, high risk. Brenda Ledbetter MD Histories Allergies Allergies ?(Active and Proposed Allergies Only) NKA? (Severity: Unknown severity, Onset: Unknown) ?? Past Medical History/Problem List No problems documented. ?? Past Surgical History Appendectomy Ileostomy - stoma Cataract surgery ?? Social History Alcohol Details:??Use: Current. ??Frequency: 1-2 times per year. ??Type: Beer, Wine. Exercise Details:??Self assessment: Fair condition. Home/Environment Details:??Living situation: Home/Independent. ??Lives with: Spouse. Nutrition/Health Details:??Diet: Regular. Substance Abuse Details:??Use: Never. Tobacco Details:??Use: Never (less than 100 in lifetime). Electronic Cigarette/Vaping Details:??Electronic Cigarette Use: Never. ?? Family History Mother: Diabetes mellitus Father: Prostate cancer Medications Home Medications Aspirin (aspirin 81 mg oral tablet, chewable)?CHEW AND SWALLOW 1 TABLET BY MOUTH DAILY Aspirin (aspirin 81 mg oral tablet, chewable)?1?tab(s)?81?Milligram?Daily Calcium And Vitamin D Combination (calcium (as carbonate)-vitamin D3 600 mg-10 mcg (400 intl units)oral capsule)?1?capsule?By Mouth?2 times a day Cyanocobalamin (Vitamin B12 1000 mcg oral tablet)?1?tab(s)?1,000?Microgram?By Mouth?Daily Folic Acid (folic acid 1 mg oral tablet)?1?Milligram?1?tablet?By Mouth?Daily Furosemide (furosemide 20 mg oral tablet)?20?Milligram?1?tablet?By Mouth?Daily Metoprolol (Metoprolol Tartrate 50 mg oral tablet)?TAKE 1 TABLET BY MOUTH TWICE DAILY Potassium Citrate (potassium citrate 10 mEq oral tablet)?TAKE 2 TABLETS BY MOUTH TWICE DAILY FOR90 DAYS Pyridoxine (Vitamin B6 50 mg oral tablet)?50?Milligram?1?tablet?By Mouth?Daily?for 10?Days Sertraline (sertraline 25 mg oral tablet)?1?tab(s)?25?Milligram?By Mouth?Daily Terazosin (terazosin 5 mg oral capsule)?TAKE 1 CAPSULE BY MOUTH AT BEDTIME ?? Inpatient Medications Medications (15) Active SCHEDULED: (2) Insulin Lispro 100 units/mL Inj (Insulin LISPRO Sliding Scale) ??2-10 units, Subcutaneous Injection, 3 times a day before meals NaCl 0.9% Flush 3ml (NaCL 0.9% Flush) ??3 mL, IV Push, Every 8 hours CONTINUOUS: (0) PRN: (13) Acetaminophen 325 mg Tablet (Acetaminophen Tablet) ??650 mg, By Mouth, Every 4 hours Dextromethorphan-Guaifenesin 20 mg-200 mg/10 mL Liqu UD (Robitussin DM Liquid) ??10 mL, By Mouth, Every 4 hours Dextrose Inj Syringe (Dextrose 50% Inj Syringe (25Gm)) ??12.5 Gm, IV Push Slowly, Every 20 minutes Dextrose Inj Syringe (Dextrose 50% Inj Syringe (25Gm)) ??25 Gm, IV Push Slowly, Every 15 minutes Docusate Sodium 100 mg Capsule (Docusate Sodium Capsule) ??100 mg 1 capsule, By Mouth, 2 times a day Glucagon 1 mg Inj (Glucagon Inj) ??1 mg, Intramuscular, Once Glucose 40% Gel (15 Gm) (Glucose Gel) ??15 Gm, By Mouth, Every 20 minutes Glucose 40% Gel (15 Gm) (Glucose Gel) ??30 Gm, By Mouth, Every 20 minutes Melatonin 3 mg Tablet (Melatonin Tablet) ??3 mg, By Mouth, Daily at bedtime NaCl 0.9% Flush 3ml (NaCL 0.9% Flush) ??3 mL, IV Push, Every 8 hours Polyethylene Glycol 17 Gm Powder (MiraLax Powder) ??17 Gm 1 pack/packet, By Mouth, Daily Senna Tablet ??8.6 mg 1 tablet, By Mouth, 2 times a day Simethicone 80 mg Chewable Tablet (Simethicone Tablet) ??80 mg, Chew, 3 times a day Results Recent Labs BLOOD COUNT & DIFF WBC 9.1 k/mm3 ()?? 08/12/2024 08:58 RBC 3.34 m/mm3 (Low)?? 08/12/2024 08:58 Hgb 10.9 Gm/dL (Low)?? 08/12/2024 08:58 Hct 31.9 % (Low)?? 08/12/2024 08:58 MCV 95.5 femtoliters (High)?? 08/12/2024 08:58 MCH 32.6 pg ()?? 08/12/2024 08:58 MCHC 34.2 Gm/dL ()?? 08/12/2024 08:58 Platelet Count 133 k/mm3 (Low)?? 08/12/2024 08:58 RDW-SD 44.5 femtoliters ()?? 08/12/2024 08:58 MPV 9.7 femtoliters ()?? 08/12/2024 08:58 Nucleated RBC (Automated) 0.0 #/100 WBC'S ()?? 08/12/2024 08:58 Abs. NRBC 0.0 k/mm3 ()?? 08/12/2024 08:58 Abs. Neut 8.1 k/mm3 (High)?? 08/12/2024 08:58 Abs. Lymph 0.8 k/mm3 ()?? 08/12/2024 08:58 Abs. Owsley 0.2 k/mm3 (Low)?? 08/12/2024 08:58 Abs. Eo 0.0 k/mm3 ()?? 08/12/2024 08:58 Abs. Baso 0.0 k/mm3 ()?? 08/12/2024 08:58 Neut % 88.5 % (High)?? 08/12/2024 08:58 Lymph % 8.3 % (Low)?? 08/12/2024 08:58 Owsley % 2.2 % (Low)?? 08/12/2024 08:58 Eos % 0.0 % ()?? 08/12/2024 08:58 Baso % 0.1 % ()?? 08/12/2024 08:58 Imm Gran 0.9 % ()?? 08/12/2024 08:58 Abs. Imm Gran 0.1 k/mm3 ()?? 08/12/2024 08:58 ?? CHEM GENERAL Sodium 142 mmol/L ()?? 08/12/2024 08:58 Potassium 4.2 mmol/L ()?? 08/12/2024 08:58 Chloride 114 mmol/L (High)?? 08/12/2024 08:58 Bicarbonate Level 17 mmol/L (Low)?? 08/12/2024 08:58 Anion Gap 11 ()?? 08/12/2024 08:58 Glucose Level 118 mg/dL (High)?? 08/12/2024 08:58 Glucose, POC 166 mg/dL (High)?? 08/12/2024 17:31 BUN 33 mg/dL (High)?? 08/12/2024 08:58 Creatinine-Blood 1.50 mg/dL (High)?? 08/12/2024 08:58 Estimated GFR Creatinine 49 ML/MIN/1.73 M2 ()?? 08/12/2024 08:58 Calcium 8.8 mg/dL ()?? 08/12/2024 08:58 Calcium, Ionized pH Corrected 1.24 mmol/L ()?? 08/12/2024 08:58 Magnesium 1.9 mg/dL ()?? 08/12/2024 08:58 Protein, Total 6.6 Gm/dL ()?? 08/12/2024 08:58 Albumin 3.7 Gm/dL ()?? 08/12/2024 08:58 AG Ratio 1.3 ()?? 08/12/2024 08:58 Alkaline Phosphatase 53 units/L ()?? 08/12/2024 08:58 AST (SGOT) 22 units/L ()?? 08/12/2024 08:58 ALT (SGPT) 20 units/L ()?? 08/12/2024 08:58 Bilirubin, Total 0.9 mg/dL ()?? 08/12/2024 08:58 ?? COAG INR 1.1 ()?? 08/12/2024 08:58 Protime (PT) 11.3 seconds ()?? 08/12/2024 08:58 APTT 38.7 seconds (High)?? 08/12/2024 08:58 ? EKG study * Event Display: EKG Authored Date: * Event Display: ECG 12-Lead Authored Date: Please click on pdf link to open report * Event Display: ECG 12-Lead Authored Date: Ventricular Rate: 86 BPM Atrial Rate: 86 BPM P-R Interval: 212 ms QRS Duration: 98 ms Q-T Interval: 388 ms QTC Calculation(Bazett): 464 ms P [place]: 2 degrees R [place]: -19 degrees T [place]: -17 degrees Sinus rhythm with 1st degree A-V block Low voltage QRS Borderline ECG When compared with ECG of 28-MAR-2024 08:47, Sinus rhythm has replaced Atrial flutter QT has lengthened Confirmed by OMKAR FERNANDO ([id number]) on 08/12/2024 3:38:41 PM [place]: OMKAR FERNANDO Heart * Event Display: Echocardiogram - Complete Authored Date: Transthoracic Echocardiography Report (TTE) Patient Demographics Patient Name HALLIE JONES Date of Study 08/13/2024 Corporate Gender Male Facility Race .[id number] Ethnicity Date of 1950 Height: 72.83 inches Age 73 year(s) Weight: 216.05 pounds Accession Number [id number] BSA: 2.22 m2 Room Number M6121 BMI: 28.63 kg/m2 Referring Pooja Kelly MD Interpreting Vincenzo Membreno, Physician Physician Plate Cleaner James [facility] Anne Indications Syncope. Clinical History L2 Fracture Crohn's disease Aflutter HLD LACY Study Data Type of Study TTE procedure:Echo Complete-(Doppler, Colorflow) with Contrast. Procedure Information:Definity was administered by Developer Programmer . Study Date08/13/2024 Start Time: 03:57 PM Study Location: [facility] Adult Echo Study Status: Echo lab Patient Status: Routine Technical Quality: Poor due to poor acoustical window. Blood Pressure:102/47 mmHg EKG: Normal sinus rhythm HR: 71 bpm Contrast Medium: Definity. Amount - 2 ml 2D Measurements LV Diastolic Dimension: 5 cm LV Systolic Dimension: 3.6 cm LV Septum Diastolic: 0.9 cm LV PW Diastolic: 1 cm AO Root Dimension: 3.1 cm LA Dimension: 4.2 cm LA ESV (BP):67.9 ml LVOT Stroke Volume: 100.68 ml LA ESV Index: 31 ml/m2 Stroke Volume Index45.35 ml/m2 LVOT: 2.2 cm Cardiac Index:3.22 l/min/m2 Ascending Aorta:3.3 cm Doppler Measurements AV Peak Velocity: 150 cm/s MV Peak E-Wave: 90.1 cm/s AV Peak Gradient: 9 mmHg MV Peak A-Wave: 98.5 cm/s AV Mean Gradient: 5 mmHg MV E/A Ratio: 0.91 AV VTI:32.6 cm MV P1/2t: 72 msec LVOT Peak Velocity: 124 cm/s LVOT VTI26.5 cm MV Deceleration Time: 244 msec AV Area (Continuity):3.09 cm2 MV Area (PHT): 3.06 cm2 PV Peak Velocity: 144 cm/s PV Peak Gradient: 8.29 mmHg E' Septal Velocity: 6.53 cm/s E' Lateral Velocity: 9.9 cm/s E/Med E':13.65909 E/Lat E':9.56007 Cardiac Anatomy Left Ventricle/Interventricular Septum The left ventricular size is normal. Left ventricular wall thickness is normal. The LV systolic function is normal. LVEF visually estimated at 55-60%. Normal LV wall motion. Normal diastolic function. Left Atrium/Interatrial Septum The left atrial size is at the upper limit of normal. Aortic Valve The aortic valve is poorly visualized. The aortic valve is trileaflet. There is mild aortic regurgitation. No significant aortic stenosis. Mitral Valve The mitral valve is poorly visualized. The mitral valve is grossly normal. There is no significant mitral stenosis. Trace mitral regurgitation. Aorta The ascending aorta and aortic root are normal in size. Right Ventricle Right ventricular size and systolic function appear grossly normal. Right Atrium The right atrium is normal in size. Pulmonic Valve The pulmonic valve leaflets are poorly visualized. The pulmonic valve is functionally normal. Tricuspid Valve The tricuspid valve is poorly visualized. There is trace tricuspid regurgitation. Pumonary Artery Unable to estimate pulmonary artery systolic pressure. Venous Structures The inferior vena cava size is dilated with normal inspiratory collapse. The central venous pressure estimation is mildly elevated, 8mmHg. Pericardium/Extracardiac There is no significant pericardial effusion. Summary The left ventricular size is normal. Left ventricular wall thickness is normal. The LV systolic function is normal. LVEF visually estimated at 55-60%. Normal LV wall motion. Normal diastolic function. Right ventricular size and systolic function appear grossly normal. Normal biatrial size. There is mild aortic regurgitation. The central venous pressure estimation is mildly elevated, 8mmHg. Unable to estimate PASP. Comparison No prior study available for comparison. Signature * Event Display: Echocardiogram - Complete Authored Date: [id number] Cardiology * Event Display: Cardiac Rhythm Strips Authored Date: Hospital Progress note * Joseline Perdomo LPN: PERFORM, SIGN, VERIFY Event Display: Progress Note Hospital Authored Date: [id number] Patient: HALLIE JONES Age: 74 years Sex: Male : 1950 Associated Diagnoses: None Author: Joseline Perdomo LPN Findings Problem Related to Alteration in Musculoskeletal : Alteration in Musculoskeletal Func/new 08/16/2024 18:00 EST Alteration in Musculoskeletal Related to Fracture Goals & Outcomes, Musculoskeletal Pt able to perform ADL's to best of ability, Pt demonstrates precautions/exercise/ transfers per protocol, Pt will ambulate safely with assistive device, Pt willdemonstrate ability to participate in ADL's Interventions, Musculoskeletal Monitor patients ambulation status, Maintain proper alignment of injured extremity, Lino location of distal pulse, lorenzo. if doppler used BH Goals/Interventions, Musculoskeletal Yes Musculoskeletal, Problem Start 08/16/2024 18:53 Reviewed Plan with, Musculoskeletal Patient Patient Progression, Musculoskeletal Pt progressing according to plan . Alteration in Tissue Perfusion : Alteration in Tissue Perfusion 08/16/2024 18:00 EST Alteration Tissue Perfusion related to Bleeding disorder Goals & Outcomes: Tissue perfusion Pt will maintain optimal perfusion to vital organs, Pt will resume/maintain adequate peripheral circulation, Pt will experience improved tissue perfusion, Pt will be hemodynamically stable, Tissue perfusion will improve/return to baseline Interventions: Tissue Perfusion Assess/Monitor activity tolerance, Assess/Monitor cardiac dysrhythmias, Assess/Monitor peripheral pulses & capillary refill, Monitor blood loss, Monitor Intake & Output, Monitor labs & report variances to provider Goals/Interventions, Tissue Perfusion Yes Tissue Perfusion, Problem Start 08/16/2024 18:55 Reviewed Plan with, Tissue Perfusion Patient Patient Progression, Tissue Perfusion Pt progressing according to plan . Evaluation PT A/O x4, PT had p.t eval this afternoon, PT had echo this afternoon, MD nur pained so long acting for better pain management, ileostomy output 220cc, pending rehab placement, see [facility] for ful assessment.. Discharge Information Case Management Discharge Plan : Case Management Discharge Plan Data 08/16/2024 9:48 EST Discharge Level of Care at Discharge Homehealth/VNA Discharge VNA/Hospice/Home Care Lucy Farrell [phone] Service Categories #1 Physical Therapy, Detention Service Comments #1 The agency will call you to arrange for visit times, please call agency with questions Rehabilitation Discharge : Rehab Discharge Index 08/16/2024 13:57 EST Walker: distance 20-50 2024 13:33 EST Comments on treatment indicated 73 y/o M with history of hemophilia A, atrial flutter (not on anticoagulation due to hemophilia), BPH, Crohn's disease status post ileostomy, hepatitis C who was admitted as a transfer from [facility] due to L2 burst fracture.WBAT Walker: distance < 10 Distance pt will ambulate >100 ft c RW Full chart review completed Yes Hospital course 08/14: pt Ortho +, RN advised jarrett as MD discussing med regimen of symptoms. PT to follow. Other findings Pt is a moderate complexitry evaluation as circumstances leaidng to hospitalization impact POC and functional mobility. Plan of care PT Gait training, Transfer training, Therapeutic exercise, Functional Activities, Balance training, Neuromuscular education * Sepideh Reese MD: MODIFY Sepideh Reese MD: MODIFY, PERFORM, MODIFY Event Display: Progress Note Hospital Authored Date: Patient: ??HALLIE JONES ? Age:??74 Years?Sex:??Male?:??1950?? Subjective Patient is sitting comfortably in bed this morning. His pain is 8/10 w/o med, 6/10 with med and lasts for about 1 hr.?? Of note, he would prefer to go home on dc w/ PT.? Interval: - no acute events overnight - Given 3 doses of oxycodone 7.5 mg overnight Review of Systems A full review of systems was completed and is otherwise negative except as mentioned above Objective Vital Signs?? Temperature: 97.9 DegF (08/16/24 07:00:00) Temperature Route: Oral (08/16/24 07:00:00) Pulse Rate:??18 bpm??Low (08/16/24 08:01:00) Respiratory Rate: 18 br/min (08/16/24 11:41:00) Systolic Blood Pressure: 128 mm Hg (08/16/24 08:01:00) Diastolic Blood Pressure: 79 mm Hg (08/16/24 08:01:00) Blood pressure sites: Arm, right (08/16/24 07:00:00) Mean Arterial Pressure: 80 mm Hg (08/16/24 04:15:00) Pulse Pressure: 47 mm Hg (08/16/24 04:15:00) Oxygen Saturation: 98 % (08/16/24 07:00:00) Mode of Delivery (Oxygen): Room air (08/16/24 07:00:00) Early Warning Score: 4 (08/16/24 11:43:31) ? Physical Exam Constitutional: Alert, in no distress. Respiratory: Clear to auscultation. No wheezing, rales or rhonchi. Cardiovascular: S1 S2 regular. No murmurs, rubs or gallops. Gastrointestinal: Abdomen soft, non-tender, non-distended. Normal bowel sounds. Neurologic: No focal neurological deficits.?? Moves all extremities spontaneously. Sensation intactbilaterally. Skin: No rashes or lesions. Musculoskeletal: No erythema, swelling, increased pain of b/l LE. No gross deformities. Normal range of motion. Psychiatric: Normal mood and affect Results Recent Labs BLOOD COUNT & DIFF WBC 8.0 k/mm3 ()?? 08/16/2024 02:52 RBC 3.57 m/mm3 (Low)?? 08/16/2024 02:52 Hgb 11.4 Gm/dL (Low)?? 08/16/2024 02:52 Hct 35.0 % (Low)?? 08/16/2024 02:52 MCV 98.0 femtoliters (High)?? 08/16/2024 02:52 MCH 31.9 pg ()?? 08/16/2024 02:52 MCHC 32.6 Gm/dL (Low)?? 08/16/2024 02:52 Platelet Count 156 k/mm3 ()?? 08/16/2024 02:52 RDW-SD 46.8 femtoliters ()?? 08/16/2024 02:52 MPV 9.9 femtoliters ()?? 08/16/2024 02:52 Nucleated RBC (Automated) 0.0 #/100 WBC'S ()?? 08/16/2024 02:52 Abs. NRBC 0.0 k/mm3 ()?? 08/16/2024 02:52 ?? CHEM GENERAL Sodium 138 mmol/L ()?? 08/16/2024 02:52 Potassium 3.7 mmol/L ()?? 08/16/2024 02:52 Chloride 107 mmol/L ()?? 08/16/2024 02:52 Bicarbonate Level 18 mmol/L (Low)?? 08/16/2024 02:52 Anion Gap 13 ()?? 08/16/2024 02:52 Glucose Level 84 mg/dL ()?? 08/16/2024 02:52 BUN 21 mg/dL ()?? 08/16/2024 02:52 Creatinine-Blood 1.16 mg/dL ()?? 08/16/2024 02:52 Estimated GFR Creatinine 67 ML/MIN/1.73 M2 ()?? 08/16/2024 02:52 Calcium 9.0 mg/dL ()?? 08/16/2024 02:52 ?? URINE OTHER Est Creatinine Clearance 63.79 mL/min ()?? 08/16/2024 03:55 ? Assessment/Plan Assessment:??Hallie Jones is a 73-year-old male with history of hemophilia A, atrial flutter (not onanticoagulation due to hemophilia), BPH, Crohn's disease status post ileostomy, hepatitis C who wasadmitted as a transfer from [facility] due to L2 burst fracture s/p pre-syncopal fall (second syncopal fall in the last month). Neurosurgery consulted, determined no acute neurosurgical intervention, optimize pain control. Trauma surgery determined no surgical intervention at this time.Imaging of b/l knees/elbows and R ankle were unremarkable for any acute osseous abnormality. Echo was unremarkable, no RVWMA. Patient was found to have severe orthostatic hypotension on orthostatic vitals. Patient started on Midodrine and given fluid bolus with significant improvement. PT recommended rehab on discharge, however, patient??prefers to go home. Patient is hemodynamically stable. Patient's pain is not fully controlled, so we will adjust oxycodone and follow. Likely dc tomorrow. ?? Orthostatic hypotension (I95.1) Postural dizziness with presyncope (R42) Fall (W19.XXXA) Tremulousness (R25.1) ? Patient presenting with a fracture after a fall, with features concerning for possible presyncope. Patient felt lightheaded after standing resulting in his fall. Patient also has a history ofwhat appears to be progressively worsening tremors for several years, and he says that he has been worried about Parkinson's. There are reports of a shuffling gait. He does have a history of a flutter, and is not anticoagulated so TIA could also be the cause of his symptoms. Going in and out of a flutter could also lead to syncope. Currently he is in sinus rhythm with first-degree AV block. ??On presentation to [place], he did appear to have an LACY and CKD, is now returned to baseline, indicating that he may have been significantly dehydrated. ??Vitals positive for orthostatic hypotension. Given 500cc LR bolus. ??(08/15/24): Repeat orthostats improved today: supine - 123/65, sitting 113/68, standing 107/87 ?? Plan: ??- Continue Midodrine 5mg TID ??- Hold home terazosin and metoprolol in the setting of hypotension ??- Follow up with PCP to refer patient to neurology for outpatient Parkinson's workup ?? Back pain (M54.9) ??? Caused by??Fracture of L2 vertebra (S32.029A) ??? Patient presenting with an L2 burst type fracture resulting in back pain. He was transferred from [place] to [facility] for neurosurgery evaluation. Patient has been seen by neurosurgery and traumasurgery with no acute surgical intervention recommended. PT consulted, rec rehab on dc. Patient prefers to go home with outpatient PT services. His is an RN. Of note, patient ambulates with caneat baseline. ??(08/15/24): Patient states his back pain continues, 8/10 w/o med. 7/10 w/ med, lasts about 4 hrs.Oxycodone increased to 7.5mg q3h prn ?? Plan: ??-For pain management: tylenol and oxycodone XL 10mg TID for pain, oxycodone 7.5 mg q3h for breakthrough pain as needed ??-Continue tizanidine for muscle spasms ?? Atrial flutter (I48.92): ??Patient has a history of a flutter, and was seen by EP in March 2024. He was not started on anticoagulation due to hemophilia. His [id number] score at that time was 2, and Watchman procedure was discussed, but risk was thought to outweigh the potential benefit at that time. Ablation was also discussed, but that does not appear to have been completed as that was scheduled for May. 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 EKG on arrival shows sinus rhythm with first-degree AV block.Patient states that he is taking aspirin for the A-flutter. Table Games Dealer is Dr. Elier Dueñas. ??Echo done and was with normal EF, no RWMA ? Plan: ??-Continue home aspirin ??- Continue to hold metoprolol in the setting of hypotension ?-Follow up with PCP: given that patient is rate controlled and NSR, can consider restarting at a lower dose if/when appropriate ? Acute kidney injury superimposed on CKD (N17.9): ??Patient appears to have CKD stage III. Creatinine on arrival to [place] was significantly elevated from baseline. ??It is now normalizing and appears at baseline ??Patient is on furosemide 20 mg daily, for what appears to be more edema than CHF. ??Patient was given fluids for hypotension with improvement. ??Of note, PTH at 52, Ca at 8.9, less likely intrarenal injury. ??(08/15/24): Renal function improving ?? Plan: ??- Continue to hold Lasix in setting of hypotension and LACY on CKD - Follow up with PCP to consider re-starting lasix when appropriate ??- CTM renal function ?? Thrombocytopenia (D69.6) -??resolved ??Patient's platelets were low and have now improved (150 - 08/15/24). ?? Plan: ??- CTM CBC ?? Crohn disease (K50.90): ??Patient has history of Crohn's disease status post ileostomy. ??He is not taking any medications for Crohn's disease. ??-Continue home ileostomy management ? Hemophilia A (D66): ??Patient with history of hemophilia A, currently has a normocytic anemia. ??No hematomas after fall. ? BPH (benign prostatic hyperplasia) (N40.0): -Continue finasteride -Holding terazosin as above. ? HLD (hyperlipidemia) (E78.5): ??-Continue simvastatin ? Depression (F32.A): ??-Continue sertraline 25 mg ?? Quality Measures Diet: Cardiac DVT prophylaxis: PCBs Code Status: Full ?? Discussed case and plan??with attending physician Dr. Gomez. Note written by Sydni Ag,??[facility], corrected/edited by resident Sepideh Reese MD, PGY-II. ?? Sydni Ag,??[facility] Internal Medicine Reach by Jared ? * Roxanne Green RN: PERFORM, SIGN, VERIFY Event Display: Progress Note Hospital Authored Date: Patient: HALLIE JONES Age: 74 years Sex: Male : 1950 Associated Diagnoses: None Author: Roxanne Green RN Findings Problem Related to Alteration in Cardiac Function (new) : Alteration in Cardiac Function/new 08/15/2024 18:00 EST Alteration in Cardiac Status Related to Syncope Goals & Outcomes, Cardiac Status Pt will resume/maintain adequate cardiac output, Pt will resume/maintain adequate hemodynamic status, Pt will resume/maintain adequate respiratory function, Pt will resume/maintain intact neuro function, Pt will maintain adequate GI/ function appropriate for pt, Pt will not experience physical injury Cardiac Interventions Implemented Assess/monitor cardiac status, Assess/monitor neuro status, Assess/monitor respiratory status, Assess for tolerance of IV infusions; verify rate & dose, Call/Report variances in ECG to provider, Document & Monitor O2 Sats; Administer O2 as ordered BH Goals/Interventions, Cardiac Yes Cardiac, Problem Start 08/12/2024 23:00 Reviewed Plan with, Cardiac Status Patient Patient Progression, Cardiac Status Patient progressing according to plan . Evaluation Patient a+ox4. Complains of 8/10 back pain, relieved with oxycodone and scheduled Tylenol. Medicated per NOV. Ileostomy emptied regularly throughout the day. Orthostatics done today, MD updated. Safety measures remain in place with call quintanilla within reach.. Discharge Information Rehabilitation Discharge : Rehab Discharge Index 2024 13:33 EST Comments on treatment indicated 73 y/o M with history of hemophilia A, atrial flutter (not on anticoagulation due to hemophilia), BPH, Crohn's disease status post ileostomy, hepatitis C who was admitted as a transfer from [facility] due to L2 burst fracture.WBAT Walker: distance < 10 Distance pt will ambulate >100 ft c RW Full chart review completed Yes Hospital course 08/14: pt Ortho +, RN advised jarrett stanley MD discussing med regimen of symptoms. PT to follow. Other findings Pt is a moderate complexitry evaluation as circumstances leaidng to hospitalization impact POC and functional mobility. Plan of care PT Gait training, Transfer training, Therapeutic exercise, Functional Activities, Balance training, Neuromuscular education Note * Mercy Briceño RN: PERFORM Event Display: Discharge/Transfer Note Hospital Authored Date: [id number] Nursing Discharge Note Entered On: 08/17/2024 12:17 EST Performed On: 08/17/2024 12:17 EST by Mercy Briceño RN Nursing Discharge Note 2 Discharge Time : 08/17/2024 12:17 EST Discharge Level of Care at Discharge : Homehealth/VNA Discharge VNA/Hospice/Home Care(v001) : Lucy Farrell [phone] Patient Left Unit Via : Wheelchair Patient Accompanied Off Unit with : Significant other DC Instructions Provided & Signed by Pt : Yes Patient Understands D/C Instructions : Yes Patient Instructions Discharge Signed : Yes Did Pt have Specialty Bed or Wound Vac : No Mercy Briceño RN - 08/17/2024 12:17 EST * Sepideh Reese MD: PERFORM, MODIFY Event Display: Discharge/Transfer Note Hospital Authored Date: [id number] Patient: ??HALLIE JONES ? Age:??74 Years?Sex:??Male?:??1950?? Patient Information Discharge Location: W4 Primary Care Physician: Jennifer Parikh MD Admit Date/Time: 08/12/2024 15:25 Discharge Disposition Discharge Disposition: Home with Home Health Discharge Diagnosis Fracture of L2 vertebra (S32.029A) Back pain (M54.9) Tremulousness (R25.1) Fall (W19.XXXA) Crohn disease (K50.90) Atrial flutter (I48.92) BPH (benign prostatic hyperplasia) (N40.0) Postural dizziness with presyncope (R42) HLD (hyperlipidemia) (E78.5) Depression (F32.A) Acute kidney injury superimposed on CKD (N17.9) Hemophilia A (D66) Orthostatic hypotension (I95.1) _ Discharge Medications Acetaminophen (acetaminophen 325 mg oral tablet)?975?Milligram?By Mouth?3 times a day?for 14?Days Aspirin (aspirin 81 mg oral tablet, chewable)?CHEW AND SWALLOW 1 TABLET BY MOUTH DAILY?1?tab(s)?81?Milligram?Chew?Daily Calcium And Vitamin D Combination (calcium (as carbonate)-vitamin D3 600 mg-10 mcg (400 intl units)oral capsule)?1?capsule?By Mouth?2 times a day Cyanocobalamin (Vitamin B12 1000 mcg oral tablet)?1?tab(s)?1,000?Microgram?By Mouth?Daily Finasteride (finasteride 5 mg oral tablet)?1?tab(s)?5?Milligram?By Mouth?Daily Folic Acid (folic acid 1 mg oral tablet)?1?Milligram?1?tablet?By Mouth?Daily Midodrine (midodrine 5 mg oral tablet)?5?Milligram?By Mouth?3 times a day?for 30?Days Oxycodone (oxyCODONE 10 mg oral tablet, extended release)?10?Milligram?1?tablet?By Mouth?Every 8 hours?for 7?Days Oxycodone (oxyCODONE 5 mg oral tablet)?7.5?Milligram?1.5?tablet?By Mouth?Every 3 hours?as needed?for 7?Days?For breakthrough pain between the ER oxycodone doses?Pain , Severe Potassium Citrate (potassium citrate 10 mEq oral tablet)?TAKE 2 TABLETS BY MOUTH TWICE DAILY FOR90 DAYS?2?tab(s)?20?Milliequivalent?By Mouth?2 times a day Pyridoxine (Vitamin B6 50 mg oral tablet)?50?Milligram?1?tablet?By Mouth?Daily?for 10?Days Sertraline (sertraline 25 mg oral tablet)?1?tab(s)?25?Milligram?By Mouth?Daily Simvastatin (simvastatin 5 mg oral tablet)?1?tab(s)?5?Milligram?By Mouth?Daily before dinner Tizanidine (tiZANidine 4 mg oral tablet)?4?Milligram?By Mouth?3 times a day?as needed?for 7?Days?Spasm ? Medications Started Midodrine (midodrine 5 mg oral tablet)?5?Milligram?By Mouth?3 times a day?for 30?Days Oxycodone (oxyCODONE 10 mg oral tablet, extended release)?10?Milligram?1?tablet?By Mouth?Every 8 hours?for 7?Days Oxycodone (oxyCODONE 5 mg oral tablet)?7.5?Milligram?1.5?tablet?By Mouth?Every 3 hours?as needed?for 7?Days?For breakthrough pain between the ER oxycodone doses?Pain , Severe Tizanidine (tiZANidine 4 mg oral tablet)?4?Milligram?By Mouth?3 times a day?as needed?for 7?Days?Spasm Acetaminophen (acetaminophen 325 mg oral tablet)?975?Milligram?By Mouth?3 times a day?for 14?Days Medications Discontinued Furosemide Terazosin Metoprolol Doses Changed None PCP Follow-Up/Heads-Up ?? Patient was found to have L2 burst fracture s/p pre-syncopal, likely secondary to orthostatic hypotension. For orthostatic hypotension, patient started on Midodrine 5mg TID. His metoprolol, Lasix,??and terazosin are being held.??Please follow up patient's symptoms and medication management. For the L2 burst fracture, patient was given tylenol and oxycodone for back pain, no acute intervention recommended at this time. Please follow up on patient's pain control and back pain. For muscle spasms of back, patient was started on Tizanidine. Please follow up on patient's back spasms and medication management. Patient was noted to have increasing tremulousness for the last weeks to months, has had shuffling gait. Possibility this represents undiagnosed Parkinson's disorder which would raise an additional consideration for syncope/fall risk. Please refer patient to neurology for outpatient Parkinson's workup. Patient has h/o atrial flutter. Metoprolol is being held in setting of hypotension. Given patient is rate controlled and NSR, please consider restarting at a lower dose if/when appropriate. Patient had an LACY on CKD. His Lasix is being held in setting of orthostatic hypotension and LACY onCKD. Please check kidney function in 1 week and follow up on medication management. Hospital Course Hallie Jones is a 73-year-old male with history of hemophilia A, atrial flutter (not on anticoagulation due to hemophilia), BPH, Crohn's disease status post ileostomy, hepatitis C who was admitted as a transfer from [facility] due to L2 burst fracture s/p pre-syncopal fall (second syncopal fall in the last month). Neurosurgery consulted, determined no acute neurosurgical intervention, optimize pain control. Trauma surgery determined no surgical intervention at this time. Imaging of b/l knees/elbows and R ankle were unremarkable for any acute osseous abnormality. Echo was unremarkable, no RVWMA. Patient was found to have severe orthostatic hypotension on orthostatic vitals. Patient started on Midodrine and given fluid bolus with significant improvement. PT recommended rehab on discharge, however, patient prefers to go home. Patient's pain is controlled on scheduled tylenol andoxycodone, and he is hemodynamically stable. Patient will go home. ? Objective Assessment and Plan Orthostatic hypotension (I95.1) Postural dizziness with presyncope (R42) Fall (W19.XXXA) Tremulousness (R25.1) ? Patient presenting with a fracture after a fall, with features concerning for possible presyncope. Patient felt lightheaded after standing resulting in his fall. Patient also has a history ofwhat appears to be progressively worsening tremors for several years, and he says that he has been worried about Parkinson's. There are reports of a shuffling gait. He does have a history of a flutter, and is not anticoagulated so TIA could also be the cause of his symptoms. Going in and out of a flutter could also lead to syncope. Currently he is in sinus rhythm with first-degree AV block. ??On presentation to [place], he did appear to have an LACY and CKD, is now returned to baseline, indicating that he may have been significantly dehydrated. ??Vitals positive for orthostatic hypotension. Given 500cc LR bolus. ??(08/15/24): Repeat orthostats improved today: supine - 123/65, sitting 113/68, standing 107/87 ?? Recommendations: ??- Continue Midodrine 5mg TID ??- Hold home terazosin in the setting of hypotension ??- Hold metoprolol ??- Follow up with PCP to refer patient to neurology for outpatient Parkinson's workup ?? Back pain (M54.9) ??? Caused by Fracture of L2 vertebra (S32.029A) ??? Patient presenting with an L2 burst type fracture resulting in back pain. He was transferred from [place] to [facility] for neurosurgery evaluation. Patient has been seen by neurosurgery and traumasurgery with no acute surgical intervention recommended. PT consulted, rec rehab on dc. Patient prefers to go home with outpatient PT services. His is an RN. Of note, patient ambulates with caneat baseline. ??(08/15/24): Patient states his back pain continues, 8/10 w/o med. 7/10 w/ med, lasts about 4 hrs.Oxycodone increased to 7.5mg q3h prn ?? Recommendations: ??-For pain management outpatient: tylenol and oxycodone 10mg TID PRN for pain ??-Continue tizanidine for muscle spasms ?? Atrial flutter (I48.92): Patient has a history of a flutter, and was seen by EP in March 2024. He was not started on anticoagulation due to hemophilia. His [id number] score at that time was 2, and Watchman procedure was discussed, but risk was thought to outweigh the potential benefit at that time. Ablation was also discussed, but that does not appear to have been completed as that was scheduled for May. 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 EKG on arrival shows sinus rhythm with first-degree AV block. Patient states that he is taking aspirin for the A-flutter. Table Games Dealer is Dr. Elier Dueñas. ??Echo done and was with normal EF, no RWMA ? Recommendations: ??-Continue home aspirin ??- Continue to hold metoprolol in the setting of hypotension ?-Follow up with PCP: given that patient is rate controlled and NSR,can consider restarting at a lower dose if/when appropriate ? Acute kidney injury superimposed on CKD (N17.9): ??Patient appears to have CKD stage III. Creatinine on arrival to [place] was significantly elevated from baseline. ??It is now normalizing and appears at baseline ??Patient is on furosemide 20 mg daily, for what appears to be more edema than CHF. ??Patient was given fluids for hypotension with improvement. ??Of note, PTH at 52, Ca at 8.9, less likely intrarenal injury. ??(08/15/24): Renal function improving ?? Recommendations: ??- Continue to hold Lasix in setting of hypotension - Follow up with PCP to consider re-starting lasix when appropriate ? Thrombocytopenia (D69.6) -??resolved ??Patient's platelets were low and have now improved (150 - 08/15/24). ?? Recommendations: ??- Check CBC in 1 week. ?? Crohn disease (K50.90): ??Patient has history of Crohn's disease status post ileostomy. ??He is not taking any medications for Crohn's disease. ??-Continue home ileostomy management ? Hemophilia A (D66): ??Patient with history of hemophilia A, currently has a normocytic anemia. ??No hematomas after fall. ? BPH (benign prostatic hyperplasia) (N40.0): -Continue finasteride -Holding terazosin as above. ? HLD (hyperlipidemia) (E78.5): ??-Continue simvastatin ? Depression (F32.A): ??-Continue sertraline 25 mg ? Vital Signs?? Temperature: 98 DegF (08/17/24 07:39:00) Temperature Route: Oral (08/17/24 07:39:00) Pulse Rate:??92 bpm??High (08/17/24 08:55:00) Respiratory Rate: 20 br/min (08/17/24 08:54:00) Systolic Blood Pressure: 115 mm Hg (08/17/24 08:55:00) Diastolic Blood Pressure: 73 mm Hg (08/17/24 08:55:00) Blood pressure sites: Arm, right (08/17/24 07:39:00) Mean Arterial Pressure: 87 mm Hg (08/17/24 07:39:00) Pulse Pressure: 42 mm Hg (08/17/24 07:39:00) Oxygen Saturation: 100 % (08/17/24 07:39:00) Mode of Delivery (Oxygen): Room air (08/17/24 07:39:00) Early Warning Score: 0 (08/17/24 08:56:05) ? . Physical Exam ?Constitutional: Alert, in no distress. ?Respiratory: Clear to auscultation. No wheezing, rales or rhonchi. ?Cardiovascular: S1 S2 regular. No murmurs, rubs or gallops. ?Gastrointestinal: Abdomen soft, non-tender, non-distended. Normal bowel sounds. ?Neurologic: No focal neurological deficits.?? Moves all extremities spontaneously. Sensation intact bilaterally. ?Skin: No rashes or lesions. ?Musculoskeletal: No erythema, swelling, increased pain of b/l LE. No gross deformities. Normal range of motion. ?Psychiatric: Normal mood and affect Results [facility] Neurosurgery Pending Results Add On Lab Order ordered on 2024 Follow-Up Appointments Added Follow Up ?Time Frame ?Comments Po Jennifer SHOEMAKER?1 to 2 weeks Patient Instructions You presented after having a fall. At [place], you were found to have an fracture in your back. Multiple specialists were consulted and determined pain control as primary management. You had an imaging study of your heart to assess its function, which was unremarkable. You were also found to have asignificant drop in blood pressure when moving from a lying down to sitting to standing position, which is likely associated with the lightheadedness you felt leading to your fall. You were started on medication and given fluids. You responded well to treatment. You will go home. ?? If you experience shortness of breath, chest pain or pressure, increased swelling or redness or weakness of legs, fevers or chills, worsening lightheadedness or dizziness, or increased numbness or tingling of arms/legs, please present to your primary care or nearest emergency room. ?? Your metoprolol, terazosin, and Lasix were stopped. Please follow up with your PCP regarding re-starting them or dosage changes. ?? You were started on: Midodrine (midodrine 5 mg oral tablet)?5 mg?? By Mouth?3 times a day Tizanidine (tiZANidine 4 mg oral tablet)?4 mg?? By Mouth?3 times a day?as needed?for muscle spasms for 7?? days Oxycodone (oxyCODONE 10 mg oral tablet, extended release)?10??mg??1??tablet??By Mouth Every 8 hours for 7 days Oxycodone (oxyCODONE 5 mg oral tablet)?7.5?Milligram?1.5?tablet?By Mouth?Every 3 hours?as needed?for 7?Days?For breakthrough pain between the ER oxycodone doses?Pain , Severe Acetaminophen (acetaminophen 325 mg oral tablet)?975?Milligram?By Mouth?3 times a day?for 14?Days ?? Please continue all other home medications. ?? Please follow up with outpatient physical therapy. ?? Please follow up with your PCP in 1 week. ? Home Health Face to Face *Denotes mandatory mccallum ?? *I certify that this patient is under my care and that I or an allowed non- physician working with me had a face to face encounter with the patient on this date:??08/17/2024 10:00 ?? *The encounter with the patient was in whole, or in part, for the following medical condition, which is the primary diagnosis(es) for home health care:??Fracture of L2 vertebra (S32.029A) Back pain (M54.9) Tremulousness (R25.1) Fall (W19.XXXA) Crohn disease (K50.90) Atrial flutter (I48.92) BPH (benign prostatic hyperplasia) (N40.0) Postural dizziness with presyncope (R42) HLD (hyperlipidemia) (E78.5) Depression (F32.A) Acute kidney injury superimposed on CKD (N17.9) Hemophilia A (D66) Orthostatic hypotension (I95.1) ?? *Select the indications for the discipline/s that are being arranged for this patient. Nursing (select all that apply): [_] None [x_] Medication management (reconciliation, teaching)?? [_] Chronic disease management?? [_] Wound care and treatment?? [_] Home safety evaluation [_] Administer SQ/IM/IV medications?? [_] Cath care?? [_] Drain care?? [_] Trach or GT care?? Other _ Occupation Therapy (select all that apply): [_] None [_] ADL Management [_] Fall prevention training [_] Energy conservation [_] Cognitive training Other _ Physical Therapy (select all that apply): [_] None [x_] Functional mobility training [_] Home exercise program to strengthen [x_] Increase ROM?? [x_] Falls prevention training [_] Home maintenance program for chronic disease Other _ Speech Therapy (select all that apply): [_] None [_] Swallow evaluation and training [_] Speech and language training [_] Cognitive training to process, organize, and/or recall information Other _ ? *Homebound due to (select all that apply): [_] Inability to leave home without assistance/supervision [_] Inability to ambulate without assistance [_x] Pain [_x] Decreased strength and endurance [_] Unsteady gait [_] Severe SOB and fatigue [_] Impaired transfers [_] Inability to negotiate stairs [_] Limited weight bearing [_] Mental status change? *Physician Signature:??SEPIDEH??ALETHA SHOEMAKER ?? *By signing this, I certify that I have personally evaluated the patient and agree with the findings and recommendations as documented above. ? Results Discharge Labs BLOOD COUNT & DIFF WBC 8.0 k/mm3 ()?? 08/16/2024 02:52 RBC 3.57 m/mm3 (Low)?? 08/16/2024 02:52 Hgb 11.4 Gm/dL (Low)?? 08/16/2024 02:52 Hct 35.0 % (Low)?? 08/16/2024 02:52 MCV 98.0 femtoliters (High)?? 08/16/2024 02:52 MCH 31.9 pg ()?? 08/16/2024 02:52 MCHC 32.6 Gm/dL (Low)?? 08/16/2024 02:52 Platelet Count 156 k/mm3 ()?? 08/16/2024 02:52 RDW-SD 46.8 femtoliters ()?? 08/16/2024 02:52 MPV 9.9 femtoliters ()?? 08/16/2024 02:52 Nucleated RBC (Automated) 0.0 #/100 WBC'S ()?? 08/16/2024 02:52 Abs. NRBC 0.0 k/mm3 ()?? 08/16/2024 02:52 Abs. Neut 8.1 k/mm3 (High)?? 08/12/2024 08:58 Abs. Lymph 0.8 k/mm3 ()?? 08/12/2024 08:58 Abs. Owsley 0.2 k/mm3 (Low)?? 08/12/2024 08:58 Abs. Eo 0.0 k/mm3 ()?? 08/12/2024 08:58 Abs. Baso 0.0 k/mm3 ()?? 08/12/2024 08:58 Neut % 88.5 % (High)?? 08/12/2024 08:58 Lymph % 8.3 % (Low)?? 08/12/2024 08:58 Owsley % 2.2 % (Low)?? 08/12/2024 08:58 Eos % 0.0 % ()?? 08/12/2024 08:58 Baso % 0.1 % ()?? 08/12/2024 08:58 Imm Gran 0.9 % ()?? 08/12/2024 08:58 Abs. Imm Gran 0.1 k/mm3 ()?? 08/12/2024 08:58 ?? CHEM GENERAL Sodium 138 mmol/L ()?? 08/16/2024 02:52 Potassium 3.7 mmol/L ()?? 08/16/2024 02:52 Chloride 107 mmol/L ()?? 08/16/2024 02:52 Bicarbonate Level 18 mmol/L (Low)?? 08/16/2024 02:52 Anion Gap 13 ()?? 08/16/2024 02:52 Glucose Level 84 mg/dL ()?? 08/16/2024 02:52 Glucose, POC 166 mg/dL (High)?? 08/12/2024 17:31 BUN 21 mg/dL ()?? 08/16/2024 02:52 Creatinine-Blood 1.16 mg/dL ()?? 08/16/2024 02:52 Estimated GFR Creatinine 67 ML/MIN/1.73 M2 ()?? 08/16/2024 02:52 Calcium 9.0 mg/dL ()?? 08/16/2024 02:52 Calcium, Ionized pH Corrected 1.24 mmol/L ()?? 08/12/2024 08:58 Magnesium 1.9 mg/dL ()?? 08/12/2024 08:58 Protein, Total 6.6 Gm/dL ()?? 08/12/2024 08:58 Albumin 3.7 Gm/dL ()?? 08/12/2024 08:58 AG Ratio 1.3 ()?? 08/12/2024 08:58 Alkaline Phosphatase 53 units/L ()?? 08/12/2024 08:58 AST (SGOT) 22 units/L ()?? 08/12/2024 08:58 ALT (SGPT) 20 units/L ()?? 08/12/2024 08:58 Bilirubin, Total 0.9 mg/dL ()?? 08/12/2024 08:58 ?? COAG INR 1.1 ()?? 08/12/2024 08:58 Protime (PT) 11.3 seconds ()?? 08/12/2024 08:58 APTT 38.7 seconds (High)?? 08/12/2024 08:58 ? ENDOCRINE/TUMOR MARKER PTH, Intact 52 pg/mL ()?? 2024 00:07 ? UA/URINALYSIS Appear/Color, Urine YELLOW ()?? 2024 13:48 Specific [place], Urine 1.028 ()?? 2024 13:48 pH, Urine 6.0 ()?? 2024 13:48 Albumin, Urine TRACE (Abnormal)?? 2024 13:48 Glucose, Urine NEGATIVE ()?? 2024 13:48 Ketones, Urine NEGATIVE ()?? 2024 13:48 Bilirubin, Urine NEGATIVE ()?? 2024 13:48 Hemoglobin, Urine NEGATIVE ()?? 2024 13:48 Nitrite, Urine NEGATIVE ()?? 2024 13:48 Leukocyte, Urine NEGATIVE ()?? 2024 13:48 Urobilinogen NORMAL mg/dL ()?? 2024 13:48 WBC's, Urine 1 /HPF ()?? 2024 13:48 RBC's, Urine 2 /HPF ()?? 2024 13:48 Squamous Epith <1 /HPF ()?? 2024 13:48 Hyaline Cast 6 LPF (High)?? 2024 13:48 Hold Urine Culture Testing available 48 hours from time of collection. ()?? 2024 13:48 ?? URINE OTHER Est Creatinine Clearance 63.79 mL/min ()?? 08/16/2024 03:55 ? Patient seen and management discussed with attending, Dr. Gomez ?? Sepideh Reese MD Internal Medicine, PGY-2 Pager: [phone] ? 30_ minutes spent on discharge * Patricia SHOEMAKER, Augusto: PERFORM Event Display: Discharge/Transfer Note Hospital Authored Date: Attending Attestation:??I have seen and evaluated this patient. ??I have discussed the case and itsmanagement with the resident and agree with the findings and plan as documented in the resident???snote. * Mercy Briceño RN: PERFORM Event Display: Patient Education/Instruction Authored Date: Inpatient Adult Discharge Instructions. [address] [address] Name: HALLIE JONES : 1950?? Visit: 08/12/2024 15:25?? Current Date: 08/17/2024 10:45 ?? Account: [id number]?? Inpatient Adult Discharge Instructions We would like to thank you for allowing us to assist you with your healthcare needs. The following includes patient education materials and information regarding your injury/illness. Our entire staffstrives to provide an excellent experience for our patients and their families. PLEASE ENSURE YOU FOLLOW-UP PER THE INSTRUCTIONS BELOW! ?? YOUR OPINION IS IMPORTANT TO US! Please complete the survey you may receive by mail or email. Your feedback will be used to make improvements to the healthcare experiences of our patients and their families. Surveys are administered by [employer] ?? If further treatment with your primary care physician or another doctor is recommended, it is important for you to keep the appointment. Call your primary care physician or return to the Emergency Department immediately if your condition worsens, fails to improve, or new symptoms develop. If you need to find a doctor, you can call [facility] for a referral at [phone] or toll free at [phone] ([phone]) or log in to [email or web address].. ?? [facility], in keeping with [facility] guidance, no longer requires face masks for staff, patientsor visitors in most situations. Similiar to time spent indoors at other locations, there is the chance that you were exposed to repiratory viruses during your time with us (such as flu or COVID-19). If you develop symptoms concerning for a viral respiratory infection, please seek testing (and treatment if indicated) from your medical provider or home test kit. ?? You can view and manage your care through the patient portal or by using a health care edward of your choosing. [employer] is a website that allows you to securely view your medical information including your hospital discharge summary, office visit summaries, medications and follow-up visits. You can also request appointments, renew medications, and request access to your medical information using a health care edward of your choosing, or just ask a question. You can enroll at [email or web address] or register during your next office visit. You have been discharged from [facility], Patient Care Unit: W4??. If you have any questions regarding these instructions, including results of studies pending, afteryou leave, please call us and we will be happy to assist you 24/04. [facility] Your Care Team Attending Physician Augusto Gomez MD?? Consulting Providers Augusto Gomez MD?? Discharging Providers Sepideh Reese MD Reason for Your Visit pt fell last night going to the bathroom, fell backwards onto his butt. L2-L3 fx found on scans. pttrauma transfer.?? Your Diagnosis Acute kidney injury superimposed on CKD Atrial flutter BPH (benign prostatic hyperplasia) Crohn disease Depression Hemophilia A HLD (hyperlipidemia) Orthostatic hypotension Postural dizziness with presyncope Tests Performed Below is a partial list of the tests performed during your hospitalization. You may have had other tests and procedures not included in this list. Please discuss all test results with your provider. Basic Metabolic Panel BUN Calcium Ionized Calcium Level CBC CBC w/ Differential Comprehensive Metabolic Panel Creatinine Electrolytes Glucose Level GLUCOSE POC HOLD URINE CULTURE INR Magnesium Level PTH, INTACT PTT Urinalysis Complete Knee 1 or 2 Views Right XR Ankle Min 3 Views Right XR Elbow Min 3 Views Left XR Elbow Min 3 Views Right Add On Lab Order?? BUN?? Basic Metabolic Panel?? CBC?? CBC w/ Differential?? Calcium Level?? Complete Urinalysis (Urinalysis Complete)?? Comprehensive Metabolic Panel?? Creatinine?? Electrolytes?? Glucose Level?? Glucose POC?? Hold Urine Culture?? INR?? Ionized Calcium (Calcium Ionized)?? Magnesium Level?? PTH Intact (PTH, INTACT)?? PTT?? Type and Screen?? Ankle Min 3 Views Right?? Elbow Min 3 Views Left?? Elbow Min 3 Views Right?? Knee 1 or 2 Views Right?? Primary Care Provider Jennifer Parikh MD? Advance Directive Health Care Proxy on File No Patient refuses to discuss Discharge Vitals Temperature: 98 DegF Height: 185 cm Pulse Rate:??92 bpm??High Weight: 98.4 kg Respiratory Rate: 20 br/min Body Mass Index:??28.75 kg/m2??High Systolic Blood Pressure: 115 mm Hg Body surface area: 2.25 Diastolic Blood Pressure: 73 mm Hg ?? Oxygen Saturation: 100 % ?? Studies Pending All studies ordered during this hospital stay have been completed unless listed below. Please discuss all pending results with your provider listed above in these instructions. ?? Add On Lab Order?? What to do next Instructions From Your Doctor You presented after having a fall. At [place], you were found to have an fracture in your back. Multiple specialists were consulted and determined pain control as primary management. You had an imaging study of your heart to assess its function, which was unremarkable. You were also found to have asignificant drop in blood pressure when moving from a lying down to sitting to standing position, which is likely associated with the lightheadedness you felt leading to your fall. You were started on medication and given fluids. You responded well to treatment. You will go home. ?? If you experience shortness of breath, chest pain or pressure, increased swelling or redness or weakness of legs, fevers or chills, worsening lightheadedness or dizziness, or increased numbness or tingling of arms/legs, please present to your primary care or nearest emergency room. ?? Your metoprolol, terazosin, and Lasix were stopped. Please follow up with your PCP regarding re-starting them or dosage changes. ?? You were started on: Midodrine (midodrine 5 mg oral tablet)?5 mg?? By Mouth?3 times a day Tizanidine (tiZANidine 4 mg oral tablet)?4 mg?? By Mouth?3 times a day?as needed?for muscle spasms for 7?? days Oxycodone (oxyCODONE 10 mg oral tablet, extended release)?10??mg??1??tablet??By Mouth Every 8 hours for 7 days Oxycodone (oxyCODONE 5 mg oral tablet)?7.5?Milligram?1.5?tablet?By Mouth?Every 3 hours?as needed?for 7?Days?For breakthrough pain between the ER oxycodone doses?Pain , Severe Acetaminophen (acetaminophen 325 mg oral tablet)?975?Milligram?By Mouth?3 times a day?for 14?Days ?? Please continue all other home medications. ?? Please follow up with outpatient physical therapy. ?? Please follow up with your PCP in 1 week. ? Orders? 08/17/24 10:22:00 EST?? Prescriptions??, ??08/17/24 10:22:00 EST?? You Need to Schedule the Following Appointments Follow Up with??Jennifer Parikh MD When:??Within 1 to 2 weeks Where: [address] [place] [id number]- Discharge Medications HALLIE JONES :1950 Visit Date:08/12/2024 Medications: Please continue your medications until treatment is completed or stopped by your provider. Medications not listed below should be discontinued. Discuss any questions related to medications with your provider. What How Much When Instructions Next Dose New Acetaminophen (Tylenol Extra Strength 500 mg oral tablet) 2 tab(s) Oral 3 times a day Duration: 14 Days Pickup at [place] [address] 08/17 3PM New Midodrine (midodrine 5 mg oral tablet) 5 Milligram Oral 3 times a day Duration: 30 Days Pickup at [place] [address] 08/17 3PM New Oxycodone (oxyCODONE 10 mg oral tablet, extended release) 1 tab(s) Oral Every 8 hours Duration: 7 Days Pickup at [place] [address] 08/17 1PM New Oxycodone (oxyCODONE 5 mg oral tablet) 1.5 tab(s) Oral Every 3 hours as needed for Pain , Severe Duration: 7 Days For breakthrough pain between the ER oxycodone doses ?? Pickup at [place] [address] 08/17 12PM New Tizanidine (tiZANidine 4 mg oral tablet) 4 Milligram Oral 3 times a day as needed for Spasm Duration: 7 Days Pickup at [place] [address] 08/17 any time Changed Aspirin (aspirin 81 mg oral tablet, chewable) 1 tab(s) Chew Daily 08/18 AM Changed Finasteride (finasteride 5 mg oral tablet) 1 tab(s) Oral Daily 08/17 3PM Changed Potassium Citrate (potassium citrate 10 mEq oral tablet) 2 tab(s) Oral Twice a day 08/18 AM Changed Pyridoxine (Vitamin B6 50 mg oral tablet) 1 tab(s) Oral Daily Duration: 10 Days 08/18 AM Changed Simvastatin (simvastatin 5 mg oral tablet) 1 tab(s) Oral Daily before dinner 08/17 PM Unchanged Calcium And Vitamin D Combination (calcium (as carbonate)-vitamin D3 600 mg-10 mcg (400 intl units) oral capsule) 1 capsule Oral Twice a day 08/17 PM Unchanged Cyanocobalamin (Vitamin B12 1000 mcg oral tablet) 1 tab(s) Oral Daily 08/18 AM Unchanged Folic Acid (folic acid 1 mg oral tablet) 1 tab(s) Oral Daily 08/18 AM Unchanged Sertraline (sertraline 25 mg oral tablet) 1 tab(s) Oral Daily 08/18 AM Pharmacy Information [facility] 3: [address] [place] [address] [phone] ?? What How Much When Comments Stop Taking Furosemide (furosemide 20 mg oral tablet) 1 tab(s) Oral Daily Stop Taking Meloxicam (meloxicam 7.5 mg oral tablet) TAKE 1 TABLET BY MOUTH DAILY ?? Stop Taking Metoprolol (Metoprolol Tartrate 50 mg oral tablet) TAKE 1 TABLET BY MOUTH TWICE DAILY ?? Stop Taking Terazosin (terazosin 5 mg oral capsule) TAKE 1 CAPSULE BY MOUTH AT BEDTIME ?? Prescription Given During Visit Acetaminophen (Tylenol Extra Strength 500 mg oral tablet) - 2 tablet = 1,000 mg, By Mouth, 3 times a day, # 84 tablet, 0 Refills, [address] [address] [phone]?? Midodrine (midodrine 5 mg oral tablet) - 5 mg, By Mouth, 3 times a day, # 90 each, 0 Refills, [address] [address] [id number]?? Oxycodone (oxyCODONE 5 mg oral tablet) - 1.5 tablet = 7.5 mg, By Mouth, Every 3 hours, # 30 tablet,0 Refills, For breakthrough pain between the ER oxycodone doses, [address] [address] [phone]?? Oxycodone (oxyCODONE 10 mg oral tablet, extended release) - 1 tablet = 10 mg, By Mouth, Every 8 hours, # 21 tablet, 0 Refills, [address] [address] [id number]?? Tizanidine (tiZANidine 4 mg oral tablet) - 4 mg, By Mouth, 3 times a day, # 21 tablet, 0 Refills, [facility], [address] [place] [address] [phone]?? Laboratory Results Below is a partial list of the most recent Laboratory test results done prior to this discharge. You may have had other tests and procedures not included in this list. Please discuss all test resultswith your provider. Est Creatinine Clearance - 63.79 mL/min (08/16/2024) Basic Metabolic Panel (08/16/2024) ???Sodium - 138 mmol/L???Potassium - 3.7 mmol/L???Chloride - 107 mmol/L???Bicarbonate Level - 18 mmol/L???Anion Gap - 13???Glucose Level - 84 mg/dL???BUN - 21 mg/dL???Creatinine-Blood - 1.16 mg/dL???Estimated GFR Creatinine - 67 ML/MIN/1.73 M2???Calcium - 9.0 mg/dL BUN (2024) ???BUN - 39 mg/dL Calcium Ionized (08/12/2024) ???Calcium, Ionized pH Corrected - 1.24 mmol/L Calcium Level (2024) ???Calcium - 8.6 mg/dL CBC (08/16/2024) ???WBC - 8.0 k/mm3???RBC - 3.57 m/mm3???Hgb - 11.4 Gm/dL???Hct - 35.0 %???MCV - 98.0 femtoliters???MCH - 31.9 pg???MCHC - 32.6 Gm/dL???Platelet Count - 156 k/mm3???RDW-SD - 46.8 femtoliters???MPV - 9.9 femtoliters???Nucleated RBC (Automated) - 0.0 #/100 WBC'S???Abs. NRBC - 0.0 k/mm3 CBC w/ Differential (08/12/2024) ???WBC - 9.1 k/mm3???RBC - 3.34 m/mm3???Hgb - 10.9 Gm/dL???Hct - 31.9 %???MCV - 95.5 femtoliters???MCH - 32.6 pg???MCHC - 34.2 Gm/dL???Platelet Count - 133 k/mm3???RDW-SD - 44.5 femtoliters???MPV - 9.7 femtoliters???Nucleated RBC (Automated) - 0.0 #/100 WBC'S???Abs. NRBC - 0.0 k/mm3???Abs. Neut - 8.1 k/mm3???Abs. Lymph - 0.8 k/mm3???Abs. [place] - 0.2 k/mm3???Abs. Eo - 0.0 k/mm3???Abs. Baso - 0.0 k/mm3???Neut % - 88.5 %???Lymph % - 8.3 %???[place] % - 2.2 %???Eos % - 0.0 %???Baso % - 0.1 %???Imm Gran- 0.9 %???Abs. Imm Gran - 0.1 k/mm3 Comprehensive Metabolic Panel (08/12/2024) ???Sodium - 142 mmol/L???Potassium - 4.2 mmol/L???Chloride - 114 mmol/L???Bicarbonate Level - 17 mmol/L???Anion Gap - 11???Glucose Level - 118 mg/dL???BUN - 33 mg/dL???Creatinine-Blood - 1.50 mg/dL???Estimated GFR Creatinine - 49 ML/MIN/1.73 M2???Calcium - 8.8 mg/dL???Protein, Total - 6.6 Gm/dL???Albumin - 3.7 Gm/dL???AG Ratio - 1.3???Alkaline Phosphatase - 53 units/L???AST (SGOT) - 22 units/L???ALT (SGPT) - 20 units/L???Bilirubin, Total - 0.9 mg/dL Creatinine (2024) ???Creatinine-Blood - 1.66 mg/dL???Estimated GFR Creatinine - 43 ML/MIN/1.73 M2 Electrolytes (2024) ???Sodium - 137 mmol/L???Potassium - 3.5 mmol/L???Chloride - 108 mmol/L???Bicarbonate Level - 17 mmol/L???Anion Gap - 12 Glucose Level (2024) ???Glucose Level - 92 mg/dL GLUCOSE POC (08/12/2024) ???Glucose, POC - 166 mg/dL HOLD URINE CULTURE (2024) ???Hold Urine Culture - Testing available 48 hours from time of collection. INR (08/12/2024) ???INR - 1.1???Protime (PT) - 11.3 seconds Magnesium Level (08/12/2024) ???Magnesium - 1.9 mg/dL PTH, INTACT (2024) ???PTH, Intact - 52 pg/mL PTT (08/12/2024) ???APTT - 38.7 seconds Urinalysis Complete (2024) ???Appear/Color, Urine - YELLOW???Specific [place], Urine - 1.028???pH, Urine - 6.0???Albumin, Urine - TRACE???Glucose, Urine - NEGATIVE???Ketones, Urine - NEGATIVE???Bilirubin, Urine - NEGATIVE???Hemoglobin, Urine - NEGATIVE???Nitrite, Urine - NEGATIVE???Leukocyte, Urine - NEGATIVE???Urobilinogen - NORMAL? ?WBC's, Urine - 1 /HPF? ?RBC's, Urine - 2 /HPF? ?Squamous Epith - <1 /HPF? ?Hyaline Cast - 6 LPF You will be contacted within 72 hours with your results. Allergies (NKA means No Known Allergies) NKA Problems No qualifying data available Education Materials Below is the list of Educational Leaflet Providered with your Discharge Instructions. [employer] Patient Education - Tizanidine?? [employer] Patient Education - Understanding the Risks and Side Effects of Opioid Medicines?? [employer] Patient Education - Understanding Opioid Medicines for Pain Management?? Valuables and Belongings I fully understand and agree that [facility] accepts no responsibility for all my personal property including clothing, toilet articles, radios, jewelry, dentures, hearing aids, rings, money, or any other property that is in my possession or is brought to me after admission. I understand certain valuables may be placed in a hospital safe for a short period of time. I understand that the hospital is not liable for loss or damage due to accident, fire, or other natural occurrence while said property is in the safe. I accept full responsibility for any personal property that I keep with me, and will not hold the hospital responsible in case of loss or disappearance. I acknowledge that i have been encouraged to send valuables and belongings home. ?? Date for Pt to Sign Valuables/Belongings: 08/17/24 10:44:00 ?? Other Discharge Information ? Case Management Discharge Plan?? Discharge Plan?? Discharge Agency Information?? Discharge Level of Care at Discharge: Homehealth/VNA Service Categories #1: Physical Therapy, Detention Discharge VNA/Hospice/Home Care: [facility] [phone] Service Comments #1: The agency will call you to arrange for visit times, please call agency with questions ?? Pulmonary Rehab Status?? Pulmonary Rehab Discharge Status?? Respiratory Rate: 20 br/min ? Common Emergency Awareness Tips IS IT A STROKE? Act FAST and Check for these signs: FACE Does the face look uneven? ARM Does one arm drift down? SPEECH Does their speech sound strange? TIME Call at any sign of stroke ?? Heart Attack Signs Chest discomfort: Most heart attacks involve discomfort in the center of the chest and lasts more than a few minutes, or goes away and comes back. It can feel like uncomfortable pressure, squeezing, fullness or pain. Discomfort in upper body: Symptoms can include pain or discomfort in one or both arms, back, neck, jaw or stomach. Shortness of breath: With or without discomfort. Other signs: Breaking out in a cold sweat, nausea, or lightheaded. Remember, MINUTES DO MATTER. If you experience any of these heart attack warning signs, call to get immediate medical attention! ?? Smoking can increase your chances of developing chronic health problems and can cause harmful effects to other family members in your house. If you smoke, you are strongly encouraged to quit. Please call [employer] at [phone] or [phone] ([phone]) or log in to [email or web address] for referrals to smoking cessation programs. ?? 988 Suicide & Crisis Lifeline is available 24/04 if you or someone you know needs to find a reason to keep living. By calling 188 you'll be connected to a skilled, trained counselor at a crisis center in your area. INPATIENT DISCHARGE INSTRUCTIONS SIGNATURE PAGE HALLIE JONES Location:[facility] Registration Date and Time:08/12/2024 15:25 EST Primary Care Physician: Jennifer Parikh MD, Attending Physician: Patricia SHOEMAKER, Augusto, I HALLIE JONES, have received the above patient education materials/instructions and have verbalized understanding. If ambulance or transport services are being used I further acknowledge being givena choice of service. ?? If you need to contact me, please call me at this number: . Patient/Draw Operator Name: Patient/Draw Operator Signature: Relationship to Patient: Witness Name/Signature: Date: * Sepideh Reese MD: PERFORM Event Display: Patient Education Leaflets Authored Date: [id number] Tizanidine ?? [id number] Tizanidine Brand Name(s): Zanaflex? WHY is this medicine prescribed? Tizanidine is used to relieve the spasms and increased muscle tone caused by multiple sclerosis (MS, a disease in which the nerves do not function properly and patients may experience weakness, numbness, loss of muscle coordination and problems with vision, speech, and bladder control), stroke, or brain or spinal injury. Tizanidine is in a class of medications called skeletal muscle relaxants. Itworks by slowing action in the brain and nervous system to allow the muscles to relax. HOW should this medicine be used? Tizanidine comes as a tablet and a capsule to take by mouth. It is usually taken consistently either always with or always without food two or three times a day. Follow the directions on your prescription label carefully, and ask your doctor or pharmacist to explain any part you do not understand. Take tizanidine exactly as directed. Do not take more or less of it or take it more often than prescribed by your doctor. Tizanidine capsules may be opened and sprinkled on soft foods such as applesauce. Talk to your doctor before opening the capsules because the effects of the medication when used in this manner may bedifferent than when swallowing the capsule whole. The medication in the capsule is absorbed differently by the body than the medication in the tablet, so one product cannot be substituted for the other. Each time you have your prescription filled, look at the tablets or capsules in the bottle and make sure that you have received the right product.If you think you received the wrong medication, talk to your doctor or pharmacist right away. Your doctor will probably start you on a low dose of tizanidine and gradually increase your dose, depending on your response to this medication. Do not stop taking tizanidine without talking to your doctor. If you suddenly stop taking tizanidine, your heart may beat faster and you may have increased blood pressure or tightness in your muscles. Your doctor will probably decrease your dose gradually. Are there OTHER USES for this medicine? This medication is sometimes prescribed for other uses; ask your doctor or pharmacist for more information. What SPECIAL PRECAUTIONS should I follow? Before taking tizanidine, ??? tell your doctor and pharmacist if you are allergic to tizanidine or any other medications. ???tell your doctor if you are taking ciprofloxacin (Cipro) or fluvoxamine. Your doctor will probably tell you not to take tizanidine if you are taking either of these medications. ??? tell your doctor and pharmacist what other prescription and nonprescription medications, vitamins, nutritional supplements, and herbal products you are taking or plan to take while taking tizanidine. Your doctor may need to change the doses of your medications or monitor you carefully for side effects. ??? the following nonprescription products may interact with tizanidine: cimetidine (Tagamet); famotidine (Pepcid, Pepcid AC). Be sure to let your doctor and pharmacist know that you are taking these medications before you start taking tizanidine. Do not start any of these medications while taking tizanidine without discussing with your healthcare provider. ??? tell your doctor if you have or have ever had kidney or liver disease. ??? tell your doctor if you are , plan to become , or are breast-feeding. If you become while taking tizanidine, call your doctor. ??? if you are having surgery, including dental surgery, tell the doctor or dentist that you are taking tizanidine. ??? you should know that this medication may make you drowsy. Do not drive a car or operate machinery until you know how this medication affects you. ??? remember that alcohol can add to the drowsiness caused by this medication. ??? System.Collections.Generic.List`1[System.Object] What SPECIAL DIETARY instructions should I follow? Unless your doctor tells you otherwise, continue your normal diet. What should I do IF I FORGET to take a dose? If your doctor has told you to take tizanidine regularly, take the missed dose as soon as you remember it. However, if it is almost time for your next dose, skip the missed dose and continue your regular dosing schedule. Do not take a double dose to make up for a missed one. What SIDE EFFECTS can this medicine cause? Tizanidine may cause side effects. Tell your doctor if any of these symptoms are severe or do not go away: ??? dizziness ??? drowsiness ??? weakness ??? nervousness ??? depression ??? vomiting ??? tingling sensation in the arms, legs, hands, and feet ??? dry mouth ??? constipation ??? diarrhea ??? stomachpain ??? heartburn ??? increased muscle spasms ??? back pain ??? rash ??? sweating Some side effects can be serious. If you experience any of these symptoms, call your doctor immediately: ??? nausea ??? extreme tiredness ??? unusual bleeding or bruising ??? lack of energy ??? loss of appetite ??? pain in the upper right part of the stomach ??? yellowing of the skin or eyes ??? unexplained flu-like symptoms ??? seeing things or hearing voices that do not exist ??? slow heartbeat ??? changes in vision Tizanidine may cause other side effects. Call your doctor if you have any unusual problems while taking this medication. If you experience a serious side effect, you or your doctor may send a report to the Food and Drug Administration's (FDA) MedWatch Adverse Event Reporting program online (https://www.fda.gov/Safety/MedWatch) or by phone ( ). What should I know about STORAGE and DISPOSAL of this medication? Keep this medication in the container it came in, tightly closed, and out of reach of children. Store it at room temperature and away from excess heat and moisture (not in the bathroom). Unneeded medications should be disposed of in special ways to ensure that pets, children, and otherpeople cannot consume them. However, you should not flush this medication down the toilet. Instead,the best way to dispose of your medication is through a medicine take-back program. Talk to your pharmacist or contact your local garbage/recycling department to learn about take-back programs in your community. See the FDA's Safe Disposal of Medicines website (https://goo.gl/c4Rm4p) for more information if you do not have access to a take-back program. It is important to keep all medication out of sight and reach of children as many containers (such as weekly pill minders and those for eye drops, creams, patches, and inhalers) are not child-resistant and young children can open them easily. To protect young children from poisoning, always lock safety caps and immediately place the medication in a safe location ??? one that is up and away and out of their sight and reach. https://www.upandaway.org What should I do in case of OVERDOSE? In case of overdose, call the poison control helpline at . Information is also available online at https://www.poisonhelp.org/help. If the victim has collapsed, had a seizure, has trouble breathing, or can't be awakened, immediately call emergency services at 911. Symptoms of overdose may include: ??? drowsiness ??? extreme tiredness ??? confusion ??? slow heartbeat ??? fainting ??? dizziness ??? slow or shallow breathing ??? loss of consciousness What OTHER INFORMATION should I know? Keep all appointments with your doctor and the laboratory. Your doctor will order certain lab teststo check your response to tizanidine. Do not let anyone else take your medication. Ask your pharmacist any questions you have about refilling your prescription. It is important for you to keep a written list of all of the prescription and nonprescription ([id number]) medicines you are taking, as well as any products such as vitamins, minerals, or otherdietary supplements. You should bring this list with you each time you visit a doctor or if you areadmitted to a hospital. It is also important information to carry with you in case of emergencies. This report on medications is for your information only, and is not considered individual patient advice. Because of the changing nature of drug information, please consult your physician or pharmacist about specific clinical use. The [employer] represents that the information provided hereunder was formulated with a reasonable standard of care, and in conformity with professional standards in the field. The [employer] makes no representations or warranties, express or implied, including, but not limited to, any implied warranty of merchantability and/or fitness for a particular purpose, with respect to such information and specifically disclaims all such warranties. Users are advised that decisions regarding drug therapy are complex medical decisions requiring the independent, informed decision of an appropriate health hearing care practitioner, and the information is provided for informational purposes only. The entire monograph for a drug should be reviewed for a thorough understanding of the drug's actions, uses and side effects. The [employer] does not endorse or recommend the use of any drug.The information is not a substitute for medical care. AHFS?? Patient Medication Information???. ?? Copyright, 2023. The [employer]??, [address], [address], [place], [place]. All Rights Reserved. Duplication for commercial use must be authorized by [facility]. Selected Revisions: March 21, 2024. AHFS?? Patient Medication Information???. ?? Copyright, 2023 ?? * Sepideh Reese MD: PERFORM Event Display: Patient Education Leaflets Authored Date: [id number] Understanding the Risks and Side Effects of Opioid Medicines ?? [address]78 Understanding the Risks and Side Effects of Opioid Medicines When opioids are taken as prescribed, they are often safe. And they can help manage pain effectively. But they come with risks and side effects that are important to understand. Opioid overdose??is the most serious risk that can occur. Overdose means taking a dose that's too high. For this reason, it's morley that you and your loved ones know the symptoms of an opioid overdose and what to do if it occurs.?? Risks of opioid medicines If you take opioids regularly for a long time, there is a risk of forming a tolerance or dependenceto the medicines. There is also the risk of forming an addiction. But this is much less common whenopioids are taken as directed under the care of a healthcare provider. Understanding the differences between tolerance, dependence, and addiction is important. This helps you know what to expect whentaking opioids. and know what to do if you think you may be addicted.? Tolerance. This means that your body needs higher doses than before to get the same pain relief effects. Most people who take opioids for more than a few weeks will form a tolerance. This is normal. Your provider will work with you to manage tolerance and make sure that your pain is still controlled. ??? Dependence. This means your body will have withdrawal symptoms if you reduce or stop taking the medicine. These symptoms can include sleeplessness, fast heartbeat, fast breathing, and diarrhea. Forming a dependence iscommon for people taking opioids regularly for a long time. When it's time to stop taking the medicine, your provider will work closely with you to slowly reduce the medicine. This will lessen withdrawal symptoms. Never stop taking or reduce the amount of medicine you are used to taking without talking with your provider. Note: Dependence is not the same thing as addiction. ??? Addiction. This occurs when a person has the urge to get the medicine. They can't stop using it despite the harm and negative effects it might cause. Some people are at higher risk for addiction. These include people with a history of drug misuse. Your provider will follow up with you regularly. They will also watch you for signs of addiction. If you think you are forming an addiction to your medicine, call your provider right away. ?? What is opioid-use disorder? Opioid-use disorder is a risk of taking opioid medicines. It may be diagnosed if a person shows a pattern of taking opioids despite negative consequences such as: ??? The opioid interfering with life, family, or work obligations (this includes avoiding situations because of opioid use) ??? Physical or psychological problems occurring because of using this medicine ??? Continued and increased amount of time spent trying to get, use, and recover from opioid use ??? Trying but failing to reduce or stop opioid use ??? Using a higher amount of opioid than prescribed, using for a longer than intended, or using it in unsafe situations (such as driving) ??? Unmanaged symptoms of tolerance or withdrawal If you or your family think you may have opioid-use disorder, contact your healthcare provider right away. They can help you assess the problem. They can provide treatment if needed.? Risk for overdose Opioids affect the part of the brain that controls breathing. An opioid overdose can cause your breathing to slow down too much. It can even stop you from breathing. This can be fatal. Call 911 rightaway if an overdose is suspected in any person.?? Three symptoms of opioid overdose are: ??? Narrowing of dark circles in the middle of eyes (pinpoint pupils) ??? Slowed or stopped breathing ??? A person passes out and does not respond (unconsciousness) Other symptoms to look for include: ??? Limp body ??? Pale face ??? Clammy skin ??? Purple or blue color of the lips and fingernails ??? Vomiting?? Your healthcare provider may prescribe a medicine called naloxone to have in case of opioid overdose. When given in a certain amount of time after an overdose, naloxone can help reverse the life-threatening effects of the opioid. Emergency care will still be needed. ?? Side effects of opioid medicines Some side effects are common when taking opioids. These include: ??? Constipation ??? Nausea ??? Sleepiness ??? Impaired motor skills ??? Problems emptying the bladder (urinary retention) Opioid medicines can also cause problems with memory, thinking, and judgment, especially in older adults.?? If you have any of these side effects, talk with your healthcare provider or pharmacist. They can give advice for managing them. This might include: ??? Reducing the dose of your opioid medicine (never do this without talking with your provider) ??? Trying a different type or brand of opioid medicine ??? Adding a medicine to treat the side effect?? In some cases, your provider may take steps to help prevent side effects that are likely to occur. For instance, to help prevent constipation, your provider may prescribe a laxative or stool softenerat the same time you start opioid treatment.??They may advise eating more high-fiber foods. More serious or longer-lasting side effects can occur when you don???t take opioids exactly as directed. Misusing opioids can lead to liver and brain damage. To prevent these side effects: ??? Never take more opioids than prescribed by your healthcare provider. ??? Never combine opioids with nonprescribed medicines. ??? Never use illegal drugs or drink alcohol while taking opioids. ???Don't take opioids with benzodiazepines (such as lorazepam or alprazolam). Serious risks are linkedwith combining opioids with this type of medicine. These risks include severe sleepiness, slowed breathing, and . Let your provider know if you are taking benzodiazepines. Caution Because of the side effects of opioid medicines, don't drive, operate dangerous machinery, or make important business or personal decisions while taking these medicines (and for 24 hours after takingthe medicines). Don't bathe alone. Your healthcare provider will tell you when it's safe to do these things. ?? When to call your healthcare provider You will be carefully watched during treatment with opioid medicines. But you should call your provider right away if you have any of these symptoms: ??? New pain, pain that gets worse, or pain that doesn???t get better even after you take your medicine ??? Side effects, such as constipation or nausea, that keep you from daily activities ??? You think you are forming an addiction to the medicine ??? Any symptoms of overdose (listed above) ( call 911) ?? Last Reviewed Date: 2022 ?? 0539-4586 [employer]. All rights reserved. This information is not intended as a substitute for professional medical care. Always follow your healthcare professional's instructions. ?? * Sepideh Reese MD: PERFORM Event Display: Patient Education Leaflets Authored Date: [id number] Understanding Opioid Medicines for Pain Management ?? 30794 Understanding Opioid Medicines for Pain Management Opioids are medicines that can help ease pain. They are stronger than most exsj-uec-qwdwzcy pain relievers and must be prescribed by a healthcare provider. They can be used to treat both acute and chronic pain that ranges from moderate to severe. Opioids can be safe and effective when used correctly. But they do come with serious risks and side effects. For this reason, they should be used only if other medicines or treatments have not done enough to ease or manage pain. What is pain? Pain is your body???s way of telling you something is wrong. It makes you pull your hand away from a flame or avoid walking on an injured leg. Pain starts in receptor cells found beneath the skin andin organs throughout the body. When you are sick or injured, these receptor cells send signals along nerve pathways to the spinal cord, which then sends the signals to the brain. The brain interprets the signals as pain. In response, it sends back signals to protect the body. The brain also releases its own natural painkillers called endorphins to help reduce pain. Once the source of the pain heals, the pain often goes away. ?? Types of pain Pain can one be of two types: acute or chronic. Both types respond to treatment. ??? Acute pain typically lasts fewer than 3 months. It goes away when the cause is treated. Common causes of acute pain include injury or illness. Surgery can lead to short-term pain during healing. And women have acute pain during and after childbirth. In some cases, acute pain can lead to chronic pain over time. ??? Chronic pain often lasts longer than 3 months. This includes pain that comes and goes or that is continuous. Chronic pain may be due to an ongoing health problem, such as arthritis. Or it may lingerafter an injury that has healed, such as a broken bone. Problems with the body???s pain-control system may also lead to chronic pain. Sometimes, chronic pain can occur with no clear cause. ?? The pain cycle Pain can affect all aspects of your life. For example, sleep, mood, activity, and energy level are all affected by pain. Being tired, depressed, or inactive makes the pain worse and harder to cope with. This leads to a cycle of pain. ?? How opioids work Opioids work by attaching to special receptors found in the brain, spinal cord, and other organs. When opioids attach to these receptors, they can block or suppress how you feel pain. Opioids can also make you feel good or relaxed. They affect areas of the brain that produce feelings of pleasure. ?? Types of opioids There are two types of opioids: short-acting/immediate-release (SA/IR) and long-acting/extended-release (LA/ER). Short-acting opioids work faster than long-acting opioids. But they give pain relief for only short periods. Long- acting opioids work slower than short-acting opioids. But they ease painfor longer periods. Many opioids come in both short- and long-acting formulas. They include: ??? Codeine with acetaminophen ??? Fentanyl ??? Hydrocodone (with or without acetaminophen) ??? Hydromorphone ??? Meperidine ??? Methadone ??? Morphine ??? Oxycodone (with or without acetaminophen) ??? Tramadol If you are prescribed opioids, you will likely be started on a short-acting type at the lowest dose. The dose may then be adjusted as needed based on your response to the medicine and follow-up with your healthcare provider. If appropriate, you may start using a long-acting type opioid. In some cases, you may be prescribed both types of opioids to help manage different types of pain. Any changes will also depend on how you handle pain and side effects from the medicine. ?? Side effects of opioids Side effects of opioid medicines include the following: ??? Constipation ??? Feeling sleepy (drowsy) ??? Nausea Some side effects of opioid medicines can be life-threatening. Symptoms of opioid overdose include the following: ??? Slow heart rate ??? Shallow or slowed breathing ??? Loss of consciousness When taking opioids, there is a possibility of abusing the medicine, physical dependence, and addiction. Take opioid medicines only as directed by your healthcare provider. Don't take opioids with benzodiazepines, such as alprazolam or lorazepam. Combining these medicinescan have serious risks. These include extreme sleepiness, slowed breathing, and . Tell your healthcare provider if you are taking benzodiazepines. ?? Note Studies show that opioids provide short-term help for moderate to severe pain. But the benefits of long-term use of opioids for treating pain remain unclear. You should only stay on opioids if they continue to improve pain and function without raising the risks to your health. ?? How opioids are given Most opioids are taken by mouth. They often come in pill form. But some may come in the form of liquids and even sweetened lozenges. Certain opioids also may be injected under the skin, into a muscle, or into a vein. Or they may be absorbed through the skin via a patch. ?? Know your options Keep in mind that opioids are not the only option for treating pain. Nonopioid options may work just as well. They may have fewer risks and side effects. Talk with your healthcare provider about which treatment plan is right for you. Nonopioid options can include:? Other pain relievers, such as acetaminophen or nonsteroidal anti-inflammatory drugs (NSAIDs) such as ibuprofen or naproxen ??? Other classes of medicines such as anticonvulsants, antidepressants, and muscle relaxers ??? Exerciseand physical therapy ??? Cognitive behavioral therapy, which can help you learn different ways to respond and cope with pain ??? Mind/body therapies such as deep breathing, distraction, visualization, meditation, or biofeedback ??? Complementary therapies such as massage, acupuncture and acupressure, or childcare teacher ??? Various procedures, such as transcutaneous electrical nerve stimulation (TENS), implantation of a spinal pump, and nerve ablation ?? Last Reviewed Date: 2022 ?? [id number] [employer]. All rights reserved. This information is not intended as a substitute for professional medical care. Always follow your healthcare professional's instructions. ?? * Event Display: Provider Clarification Note Please click on pdf link to open report Patient Care team information Care Team Personnel Name: Mercy Briceño RN Position: GINA RN Member Role: Primary Care Nurse Name: Jennifer Parikh MD Position: Reference Physician Member Role: PCP Address: [address] [place] [address] Telecom: Care Team Related Persons Name: NGUYỄN JONES Insurance Providers Guarantor name: LEXY Health Plan Information #: 3 Payer: BLUE MED[employer]ARE SUPPL Member Number: [id number] Policy Number: NA Group Number: NA Health Plan Information #: 1 Payer: MEDICARE A INPT 25 Member Number: [id number] Policy Number: NA Group Number: NA Health Plan Information #: 2 Payer: MEDICARE PART B OUTPT Member Number: [id number] Policy Number: NA Group Number: NA Health Plan Information #: 4 Payer: MEDICARE PART B OUTPT Member Number: [id number] Policy Number: NA Group Number: NA Health Plan Information #: 5 Payer: BLUE CARE ELECT Member Number: [id number] Policy Number: NA Group Number: [id number] Health Plan Information #: 6 Payer: BLUE CARE ELECT Member Number: [id number] Policy Number: NA Group Number: [id number]
== END 2024-09-03 11:56 | disposition home or self-care (01) ==
PROVIDERS: PCP Internal Medicine; Visit Provider Urology
DX: N40.0 Benign prostatic hyperplasia without lower urinary tract symptoms (principal); N20.0 Calculus of kidney; M48.46XA Fatigue fracture of vertebra, lumbar region, initial encounter for fracture; Z13.9 Encounter for screening, unspecified
CPT/HCPCS: 99214

== ENCOUNTER → 2024-09-03 11:10 | Outpatient (BNVA) | payer MEDICARE, BC, SELFPAY | PROVIDERS: PCP Internal Medicine; Visit Provider Urology | DX: N40.0 Benign prostatic hyperplasia without lower urinary tract symptoms (principal); N20.0 Calculus of kidney; M48.46XA Fatigue fracture of vertebra, lumbar region, initial encounter for fracture; X58.XXXA Exposure to other specified factors, initial encounter; Y93.9 Activity, unspecified; Y92.9 Unspecified place or not applicable; Y99.9 Unspecified external cause status | CPT/HCPCS: 81003; 99212 ==

== ENCOUNTER 2024-09-05 09:39 | Outpatient (AMB) | payer MEDICARE, BC, SELFPAY ==
--- NOTE | 2024-09-05 09:44 | A.OFFPC_ITS ---
Vital Signs 09/05/24 09:45 Height 6 ft 1 in Weight 212 lb 6 oz BMI 28.0 BP 124/86 Blood Pressure Location Lt brachial Position Sitting Pulse 114 H Pulse Source Pulse Oximeter Pulse Oximetry (%) 97 Oxygen Delivery Method Room Air Intake [place] [facility] [place] Cuff Presser Required: No Accompanied by: Self / Same As Patient Allergies No Known Allergies Allergy (Verified 09/05/24 09:45) Medication List - Last Reconciled 09/05/24 by Sharda Armenta PA-C aspirin 81 mg PO DAILY calcium carbonate-vitamin D3 600 mg-5 mcg (200 unit) (Calcium 600 + D(3)) 1 tab PO DAILY cyanocobalamin (vitamin B-12) 1,000 mcg PO DAILY finasteride 5 mg PO DAILY 90 days folic acid 1 mg PO DAILY furosemide 20 mg PO DAILY metoprolol tartrate 50 mg PO BID 90 days midodrine 5 mg PO TID nystatin 1 appl topical DAILY PRN oxycodone 10 mg PO Q8H oxycodone 7.5 mg PO Q3H PRN oxycodone-acetaminophen 10-325 mg (Percocet) 1 tab PO Q6H 7 days potassium citrate ER 20 mEq (2 x 10 mEq (1,080 mg)) PO DAILY@1700 90 days pyridoxine (vitamin B6) 100 mg PO DAILY 90 days sertraline 25 mg PO DAILY simvastatin 5 mg PO BEDTIME terazosin 5 mg PO BEDTIME 90 days tizanidine 4 mg PO TID walker As directed Tobacco use date assessed: 09/05/24 Fall risk assessment: 2 + Falls in past year Last assessed Fall Risk: 09/05/24 Dental Screening Dental Screen Date: 09/05/24 Did you have a dental visit in the last 12 months?: No Did you have a dental problem in the last 6 months where you did not have access to dental care?: No Was dental information given to patient?: No [place] [facility] [place] H[place] Details 74 year old obese male with past history of AFib, hypercholesterolemia, hypertension last seen by Dr. Parikh June 2024 coming in for hospital discharge follow up. In review of the notes patient was [place] [facility] [facility] [place] complaining of low back pain after a fall found to have acute burst type fracture of the L2 vertebral body on CT of abdomen and pelvis and transferred to [facility] trauma surgery. While at [facility] patient was seen by Neurosurgery advised to optimize pain control and no neurosurgical intervention needed at t his time and no recommended follow up. Patient was admitted at [facility] for Parkinson's workup given tremulous, shuffling gait. While in the hospital metoprolol was discontinued due to hypotension and advised to consider restarting at a lower dose if/when appropriate and patient was discharged home. Patient was again seen [place] [facility] [place] for generalized weakness advised to continue on midodrine and pain medication and follow up with PCP. Patient presents today with his . He states that he has had recurrent falls in the past and does have a tremor throughout the day that worsens at night. He was evaluated by Neurology while at [facility] but is unsure of what testing they did and if any diagnoses were made. He has not been working with extremities. He states his back pain is still very painful but has been manageable with medication primarily the tizanidine. Denies any chest pain, shortness of breath, heart racing or leg swelling. He has been drinking plenty of water and the weakness that he was seen in the ED for on 08/27/2024 has resolved. [facility] Medical History CKD (chronic kidney disease) stage 3, GFR 30-59 ml/min Hemophilia A Dyspnea on exertion Weakness Atrial flutter with rapid ventricular response LACY (acute kidney injury) Atrial fibrillation with rapid ventricular response Back pain Bilateral kidney stones Ileostomy in place Lymphangitis Edema of lower extremity Parastomal hernia Obesity (BMI 30-39.9) Nocturnal hypoxemia Restrictive lung disease Essential hypertension Hemophilia Loja cyst Renal stones History of cataract BPH (benign prostatic hyperplasia) Gout Crohn's disease Peripheral vascular disease Thrombocytopenia History of hepatitis C Cholelithiasis Osteopenia Surgical History S/P colectomy Status post ablation of incompetent vein using laser (01/13/23) H/O tooth extraction History of appendectomy History of urethral stent History of cataract surgery H/O wrist surgery Family History Father Prostate cancer Mother Diabetes Maternal Grandfather Factor VIII deficiency hemophilia Social History Household Members: Spouse Household Members Other:: 1 Housing: House Are you a primary hearing healthcare practitioner to a significant other at home: No Do you presently have visiting nurse or other home services: No Alcohol intake: current Alcohol intake frequency: does not drink Alcohol type: beer Comment: no camera space available. Pt remains calm and cooperative, not impulsive Patient Tobacco Use Status: Never used Tobacco Tobacco use type: Cigarette e-Cigarette/Vaping Use: Never Used Second Hand Smoke Exposure: No service: No Current occupational status: retired Cognitive needs: No Hearing needs: No Vision needs: Yes Questionnaire PHQ-9 Over the last 2 weeks, how often have you been bothered by any of the following problems? 1. Little interest or pleasure in doing things: not at all 2. Feeling down, depressed, or hopeless: not at all 3. Trouble falling or staying asleep, or sleeping too much: not at all 4. Feeling tired or having little energy: not at all 5. Poor appetite or overeating: not at all 6. Feeling bad about yourself - or that you are a failure or have let yourself or your family down: not at all 7. Trouble concentrating on things, such as reading the newspaper or watching television: not at all 8. Moving or speaking so slowly that other people could have noticed. Or the opposite - being so fidgety or restless that you have been moving around a lot more than usual: not at all 9. Thoughts that you would be better off or of hurting yourself in some way: not at all Total score: 0 Depression Screening Interpretation: Negative Depression Screening Done: Yes Source: Developed by Drs. Rowdy Lugo, Georgie Braun, Willie Stevenson and colleagues, with an educational trinidad from [employer]. Thrive Questionnaire Date Thrive assessed: 09/05/24 I am a: Patient What is your living situation today?: I have a steady place to live Within the past 12 months, did the food you bought not last and you didn't have the money to get more?: Never true Within the past 12 months, did you worry whether your food would run out before you got money to buy more?: Never true Do you have trouble paying for medicines?: No Do you have trouble getting transportation to medical appointments?: No Do you have trouble paying your heating and electricity bill?: No Do you have trouble taking care of your child, family member or friend?: No Do you have trouble with day-to-day activities such as bathing, preparing meals, shopping, managing finances, etc.?: No Are you currently unemployed and looking for a job?: No Are you interested in more education?: No Please select the resources that you would like help with: None Currently or been in a relationship where the following occur: No concerns r eported THRIVE Score: 0 AUDIT C Alcohol Use Questionnaire (AUDIT-C) 1. How often do you have a drink containing alcohol?: Monthly or less 2. How many drinks containing alcohol do you have on a typical day when you are drinking?: 1 or 2 3. How often do you have six or more drinks on one occasion?: Never Total Score: 1 MARISOL-7 AMB Questionnaire MARISOL-7 Date MARISOL - 7 assessed: 09/05/24 Feeling nervous, anxious, or on edge: 0 = Not at all Not being able to stop or control worryin = Not at all Worrying too much about different things: 0 = Not at all Trouble relaxin = Not at all Being so restless that it is hard to sit still: 0 = Not at all Becoming easily annoyed or irritable: 0 = Not at all Feeling afraid as if something awful might happen: 0 = Not at all Total MARISOL-7 score (0-4 normal; 5-9 mild; 10-14 moderate; 15-21 severe): 0 Source: Developed by Drs. Rowdy Lugo, Georgie Braun, Willie Stevenson and colleagues, with an educational trinidad from [employer]. Review of Systems Const Denies body aches, Denies chills, Denies fever(s), Reports frequent falls, Denies headache(s) and Denies poor appetite Eyes Reports no additional complaints ENT Denies dizziness and Denies headache(s) Card Denies chest pain, Denies syncope, Denies edema, Denies irregular heart rhythm, Denies lightheadedness and Denies dyspnea Resp Denies cough and Denies dyspnea GI Denies abdominal pain, Denies constipation, Denies diarrhea, Denies nausea and Denies vomiting Reports no additional complaints Musc Reports abnormal gait and Reports back pain Skin/Breast Reports system reviewed and no additional complaints, except as documented Neuro Reports abnormal gait, Denies dizziness, Denies syncope, Reports frequent falls, Denies headache(s) and Reports tremor(s) Psych Reports no additional complaints Physical exam (Primary Care) Vital Signs: Last Vital Signs Pulse 114 H 09/05/24 09:45 BP 124/86 09/05/24 09:45 Pulse Ox 97 09/05/24 09:45 Oxygen Delivery Method Room Air 09/05/24 09:45 BMI result Body Mass Index 28.0 Tobacco/Smoking Status: Tobacco use Status Tobacco use date assessed 09/05/24 09/05/24 09:50 Patient Tobacco Use Status Never used Tobacco 09/05/24 09:50 Tobacco use type Cigarette 09/05/24 09:50 e-Cigarette/Vaping Use Never Used 09/05/24 09:50 PHQ-9: PHQ-9 Score PHQ-9: Total score 0 09/05/24 09:50 Depression Screening Interpretation: Negative Thrive Assessment: Date of Thrive Assessment Date Thrive assessed 09/05/24 09/05/24 09:50 Currently or been in a relationship where the following occur: No concerns reported Const General: cooperative, healthy appearing, comfortable and no acute distress Orientation/consciousness: patient oriented x3 HENMT Head: Yes normocephalic Ears: hearing grossly normal bilaterally General nose exam: Normal external nose present Eyes General: appearance normal, both eyes and all related structures Conjunctivae: conjunctivae normal Neck Neck: Yes full ROM and Yes no lymphadenopathy Resp Effort & Inspection: normal respiratory effort Auscultation: clear to auscultation bilaterally, no crackles, no rales, no rhonchi and no wheezes Cardio Rate: regular rate Rhythm: regular rhythm Skin General skin exam: no rashes or lesions noted Neuro General: patient oriented x3 Gait exam (Neuro): Normal gait present Extrem General: Yes normal to inspection, Yes full ROM and No edema Psych Affect: normal affect Attitude: cooperative Insight: Good insight present (Psych) Judgement: Good judgement present (Psych) Coding Level of Care Code Est Pt Level 4 (47908) Diagnoses Lumbar stress fracture M48.46XA Atrial fibrillation I48.91 Hypercholesteremia E78.00 Restrictive lung disease J98.4 Essential hypertension I10 Obesity (BMI 30-39.9) E66.9 Recurrent falls R29.6 Assessment & Plan Assessment & Plan (1) Lumbar stress fracture: Code(s): M48.46XA - Fatigue fracture of vertebra, lumbar region, initial encounter for fracture Category: Medical Plan: Patient continues to have low back pain states the tizanidine is helpful for his daytime symptoms. Discussed that this medication can cause drowsiness and to avoid during the day as it can contribute to falls. Patient was given pain medication by his urologist for the low back pain. Discussed that if he continues to have low back pain can consider pain management referral. (2) Atrial fibrillation: Code(s): I48.91 - Unspecified atrial fibrillation Category: Medical Plan: Not currently on anticoagulation due to bleeding disorder. He was taken off of the metoprolol while in the hospital. Heart is in normal rhythm on auscultation today with tachycardia advised to follow up with customer services coordinator to inform him of the medication changes and rescheduled follow up. (3) Hypercholesteremia: Code(s): E78.00 - Pure hypercholesterolemia, unspecified Category: Medical Plan: Avoid foods that are high in cholesterol such as red meat, fried foods, eggs and baked goods. Triglyceride goal of less than 150 and LDL goal of less than 100. (4) Restrictive lung disease: Comment: SPIROMETRY CONFIRMS MODERATELY SEVERE RESTRICTIVE PULMONARY DISORDER. THIS IS DUE TO HIS OBESITY ESPECIALLY THE ABDOMINAL OBESITY AND CHRONICALLY ELEVATED RIGHT HEMIDIAPHRAGM. Code(s): J98.4 - Other disorders of lung Category: Medical Plan: Continue to follow up with pulmonology. (5) Essential hypertension: Code(s): I10 - Essential (primary) hypertension Category: Medical Plan: Avoid salt intake and encourage healthy diet and regular exercise. Patient was recently taken off of his blood pressure medications due to orthostatic hypotension. Blood pressure is within normal limits today and patient denies any dizziness, lightheadedness syncope. Advised to follow up with Cardiology as they were the original prescribers of this medication. (6) Obesity (BMI 30-39.9): Comment: PATIENT IS MODERATELY OBESE THERE HAS BEEN NO RECENT INCREASE IN HIS WEIGHT. I MADE HIM AWARE THAT HE SHOULD LOSE ABOUT 10 LB OF WEIGHT Code(s): E66.9 - Obesity, unspecified Category: Medical Plan: Healthy diet and regular exercise is encouraged. (7) Recurrent falls: Code(s): R29.6 - Repeated falls Category: Medical Plan: Patient having recurrent falls while admitted at [facility] concern for possible parkinsonism due to recurrent falls and tremor. Referred to Neurology for further evaluation. Plan This note was constructed using voice recognition software. While every effort has been made to ensure accuracy and chief airline radio operator, still areas may have been included sometimes these areas may affect the content or meeting of the given symptoms. Total time spent caring for the patient today was 30 minutes. This includes time spent before the visit reviewing the chart, time spent during the visit, and time spent after the visit and documentation. Orders: Referrals Neurology Referral R25.1 - Tremor, unspecified, R29.6 - Repeated falls Medications: New tizanidine 4 mg PO TID 30 tabs 0RF
[2024-09-05 09:45] VITALS: BP 124/86; PULSE 114; O2SAT 97; BMI 28.0
== END 2024-09-05 10:58 | disposition home or self-care (01) ==
PROVIDERS: PCP Internal Medicine
DX: I48.91 Unspecified atrial fibrillation (principal); M48.46XA Fatigue fracture of vertebra, lumbar region, initial encounter for fracture; E66.9 Obesity, unspecified; Z68.28 Body mass index [BMI] 28.0-28.9, adult; E78.00 Pure hypercholesterolemia, unspecified; J98.4 Other disorders of lung; I10 Essential (primary) hypertension; R29.6 Repeated falls

== ENCOUNTER → 2024-09-05 09:39 | Outpatient (BNVA) | payer MEDICARE, BC, SELFPAY | PROVIDERS: PCP Internal Medicine | DX: M48.45 Fatigue fracture of vertebra, thoracolumbar region (principal); I48.91 Unspecified atrial fibrillation; I10 Essential (primary) hypertension; E78.00 Pure hypercholesterolemia, unspecified; J98.4 Other disorders of lung; E66.9 Obesity, unspecified; R29.6 Repeated falls | CPT/HCPCS: 96127; 99212 ==

== ENCOUNTER → 2024-09-09 10:35 | Outpatient (REF) | payer MEDICARE, BC, SELFPAY | LOC: HO.CARD 10:35 | PROVIDERS: PCP Internal Medicine; Visit Provider Internal Medicine | DX: I48.91 Unspecified atrial fibrillation (principal) | CPT/HCPCS: 93242 ==

== ENCOUNTER → 2024-09-09 10:38 | Outpatient (BNV) | payer MEDICARE, BC, SELFPAY | PROVIDERS: PCP Internal Medicine; Visit Provider Internal Medicine | DX: I48.91 Unspecified atrial fibrillation (principal); I48.92 Unspecified atrial flutter | CPT/HCPCS: 93244 ==

== ENCOUNTER 2024-09-24 09:58 | Outpatient (AMB) | payer MEDICARE, BC, SELFPAY ==
[2024-09-24 10:09] VITALS: BP 166/80; PULSE 88; BMI 28.5
--- NOTE | 2024-09-24 10:09 | MHC.OFFVIS ---
Vital Signs 09/24/24 10:09 09/24/24 10:23 09/24/24 10:23 Height 6 ft Weight 209 lb 14.081 oz BMI 28.5 BP 166/80 H 120/68 96/50 L Blood Pressure Location Lt brachial Lt brachial Lt brachial Position Supine Sitting Standing Pulse 88 103 H 108 H Pulse Source Pulse Oximeter Pulse Oximeter Intake Visit Reasons: per Matteo [employer] Professor Required: No Accompanied by: Spouse Allergies No Known Allergies Allergy (Verified 09/05/24 09:45) Medication List - Last Reconciled 09/24/24 by Matteo Porter NP aspirin 81 mg PO DAILY calcium carbonate-vitamin D3 600 mg-5 mcg (200 unit) (Calcium 600 + D(3)) 1 tab PO DAILY cyanocobalamin (vitamin B-12) 1,000 mcg PO DAILY finasteride 5 mg PO DAILY 90 days folic acid 1 mg PO DAILY nystatin 1 appl topical DAILY PRN oxycodone-acetaminophen 10-325 mg (Percocet) 1 tab PO Q6H 7 days potassium citrate ER 20 mEq (2 x 10 mEq (1,080 mg)) PO DAILY@1700 90 days pyridoxine (vitamin B6) 100 mg PO DAILY 90 days sertraline 25 mg PO DAILY simvastatin 5 mg PO BEDTIME tizanidine 4 mg PO TID walker As directed HPI Comments Details: Dirk returns for follow-up. Over the last year or so, he was having persistent atrial flutter and he was referred to [facility] EP for management. He also has a history of hemophilia and hence was on anticoagulation. Ablation was arrange but it seems that the patient never went through with it. He does not feel any clear symptoms from the atrial arrhythmias. More recently, Holter shows rather sinus rhythm with only small burden of atrial flutter/fibrillation. Currently, his main issues rather orthostatic dizziness. It seems that he was admitted to [facility] with a fall due to the same reason. Subsequently, start on midodrine which she was taking till a few days ago. During that admission, it seems that his beta-blockers and diuretics were stopped. Per discharge summary, terazosin was also stopped. He still feels the orthostatic dizziness. No recurrent syncope. There was a question of Parkinson's in the discharge summary but patient's states that he saw Neurology and they do not believe it is Parkinson's. He is walking with a cane. At home, also has a walker. [facility] Medical History CKD (chronic kidney disease) stage 3, GFR 30-59 ml/min Hemophilia A Dyspnea on exertion Weakness Atrial flutter with rapid ventricular response LACY (acute kidney injury) Atrial fibrillation with rapid ventricular response Back pain Bilateral kidney stones Ileostomy in place Lymphangitis Edema of lower extremity Parastomal hernia Obesity (BMI 30-39.9) Nocturnal hypoxemia Restrictive lung disease Essential hypertension Hemophilia Loja cyst Renal stones History of cataract BPH (benign prostatic hyperplasia) Gout Crohn's disease Peripheral vascular disease Thrombocytopenia History of hepatitis C Cholelithiasis Osteopenia Surgical History S/P colectomy Status post ablation of incompetent vein using laser (01/13/23) H/O tooth extraction History of appendectomy History of urethral stent History of cataract surgery H/O wrist surgery Family History Father Prostate cancer Mother Diabetes Maternal Grandfather Factor VIII deficiency hemophilia Social History Household Members: Spouse Household Members Other:: 1 Housing: House Are you a primary youth care professional to a significant other at home: No Do you presently have visiting nurse or other home services: No Alcohol intake: current Alcohol intake frequency: does not drink Alcohol type: beer Comment: no camera space available. Pt remains calm and cooperative, not impulsive Patient Tobacco Use Status: Never used Tobacco Tobacco use type: Cigarette e-Cigarette/Vaping Use: Never Used Second Hand Smoke Exposure: No service: No Current occupational status: retired Cognitive needs: No Hearing needs: No Vision needs: Yes Review of Systems Const Denies chills, Denies fatigue, Denies fever(s), Denies weight gain and Denies weight loss ENT Reports dizziness Card Denies chest pain, Denies leg edema, Denies lightheadedness, Denies palpitations, Reports dyspnea on exertion, Denies orthopnea and Denies other Resp Denies cough and Reports dyspnea on exertion GI Denies hematochezia and Denies change in stool character Musc Denies abnormal gait, Denies muscle weakness, Denies numbness, Denies radiating pain into limb and Denies tingling Neuro Denies abnormal gait, Reports dizziness, Denies numbness and Denies tingling Endo Denies fatigue and Denies palpitations Physical Exam Vital Signs: Last Vital Signs Pulse 108 H 09/24/24 10:23 BP 96/50 L 09/24/24 10:23 BMI result Body Mass Index 28.5 Const General: comfortable and no acute distress Orientation/consciousness: patient oriented x3 HEENT Other: Unremarkable Head: Yes normal to inspection Neck Neck: Yes normal visual inspection Chest Chest palpation & inspection: normal inspection of the chest Resp Auscultation: clear to auscultation bilaterally Cardio Palpation: normal PMI Heart sounds: S1 normal heart sound present, S2 normal heart sound present, no gallops, no murmurs and no rubs GI Palpation (GI): Soft to palpation Back/Spine/Pelvis Other: unremarkable Skin General skin exam: no rashes or lesions noted Neuro General: patient oriented x3 Extrem General: Yes normal to inspection Psych Mental Status: mental status grossly normal Office Procedures EKG Details: EKG with underlying sinus rhythm at 92/Min; no significant ST-T changes; [place] [id number], Complete Assessment & Plan Assessment & Plan (1) Atrial flutter by electrocardiogram: Code(s): I48.92 - Unspecified atrial flutter Category: Medical Plan: In the past, he used to have a very high PAC burden of as much as 41%. Holter performed recently had shown atrial flutter with an average rate of 85/Min but reported as atrial fibrillation. In a subsequent Holter from the last few days, he was mostly in sinus rhythm with a very small burden of probably atrial flutter with rapid rate. Preserved LVEF on previous echocardiogram. Beta-blockers have been stopped because of orthostatic hypotension/fall. 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 He did not follow through with the EP plan for ablation. Hence we will plan for antiarrhythmic therapy with Multaq. If he indeed gets the medication and affordable, will need EKGs. Discussed with . In the past, has had sleep studies but no clear evidence of REGINO. (2) Orthostatic hypotension: Code(s): I95.1 - Orthostatic hypotension Category: Medical Plan: Resume midodrine at a smaller dose. On days when he is truly hypertensive, may hold. Last dose by 17:00. Off metoprolol and Lasix. Try compression stockings if able although states they are difficult to get on. Abdominal binder if able. Plan Discussed with significant other who came for appointment. Medications: New dronedarone (Multaq) must administer with a meal/food 400 mg PO BID 90 tabs 3RF midodrine take the last dose before 5pm; as needed 2.5 mg PO TID PRN 90 tabs 0RF dizziness Coding Level of Care Code Est Pt Level 4 (59160) Diagnoses Atrial flutter by electrocardiogram I48.92 Orthostatic hypotension I95.1 CPT Codes EKG - CPT: 24178-[id number], Complete ([id number])
[2024-09-24 10:23] VITALS: BP 120/68; BP 96/50; PULSE 103; PULSE 108
== END 2024-09-24 10:54 | disposition home or self-care (01) ==
PROVIDERS: PCP Internal Medicine; Visit Provider Internal Medicine
DX: I48.92 Unspecified atrial flutter (principal); I95.1 Orthostatic hypotension
CPT/HCPCS: 93010; 99214

== ENCOUNTER → 2024-09-24 09:58 | Outpatient (BNVA) | payer MEDICARE, BC, SELFPAY | PROVIDERS: PCP Internal Medicine; Visit Provider Internal Medicine | DX: I48.92 Unspecified atrial flutter (principal); D66 Hereditary factor VIII deficiency; I95.1 Orthostatic hypotension; Z79.01 Long term (current) use of anticoagulants | CPT/HCPCS: 93005; 99212 ==

== ENCOUNTER 2024-10-08 08:14 | Outpatient (AMB) | payer MEDICARE, BC, SELFPAY ==
[2024-10-08 08:22] VITALS: BP 136/78; PULSE 86; O2SAT 98; BMI 31.5
--- NOTE | 2024-10-08 08:22 | A.OFFPC_ITS ---
Vital Signs 10/08/24 08:22 Height 5 ft 8.5 in Weight 210 lb BMI 31.5 BP 136/78 Blood Pressure Location Lt brachial Position Sitting Pulse 86 Pulse Source Pulse Oximeter Pulse Oximetry (%) 98 Oxygen Delivery Method Room Air Intake Visit Reasons: marisol, ATRIAL FIBRILLATION Allergies No Known Allergies Allergy (Verified 10/08/24 08:22) Tobacco use date assessed: 10/08/24 Fall risk assessment: 1 Fall in past year Last assessed Fall Risk: 10/08/24 Dental Screening Dental Screen Date: 10/08/24 Did you have a dental visit in the last 12 months?: Yes Did you have a dental problem in the last 6 months where you did not have access to dental care?: No Was dental information given to patient?: Patient has dentist HPI marisol, ATRIAL FIBRILLATION HPI Details stopped alcohol 06/2024 and is better with here is and states better problem on the lower back 08/[address] showing l2 fracture. The patient is a 74-year-old male presenting with chronic low back pain. The pain is described as located in the lower back, and the patient reports experiencing an extreme amount of discomfort. This condition has been ongoing for some time and has recently worsened, necessitating medical attention. The patient went to the emergency room for evaluation, where surgery was suggested; however, due to a holiday and lack of available personnel, the surgery was not performed. Instead, the patient was discharged with prescriptions including OxyContin and a muscle relaxer for symptomatic relief, though no surgery was completed. The patient has been receiving treatment, including use of OxyContin and tizanidine, which have provided some relief. The patient also has a history of atrial fibrillation, hypertension, and fatty liver diagnosed previously via ultrasound. The atrial fibrillation has been managed with medications such as Multaq and midodrine to address low blood pressure. A recent echocardiogram showed normal heart function. The fatty liver was initially identified in 2021 and confirmed by a CT scan in August, showing normal liver size and multiple gallstones present. The patient's alcohol use has been significant, although he reports reducing intake since June and currently drinks non-alcoholic beer. [facility] Medical History (Updated 10/08/24 @ 08:55 by Jennifer Parikh MD) L2 vertebral fracture CKD (chronic kidney disease) stage 3, GFR 30-59 ml/min Hemophilia A Dyspnea on exertion Weakness Atrial flutter with rapid ventricular response LACY (acute kidney injury) Atrial fibrillation with rapid ventricular response Back pain Bilateral kidney stones Ileostomy in place Lymphangitis Edema of lower extremity Parastomal hernia Obesity (BMI 30-39.9) Nocturnal hypoxemia Restrictive lung disease Essential hypertension Hemophilia Loja cyst Renal stones History of cataract BPH (benign prostatic hyperplasia) Gout Crohn's disease Peripheral vascular disease Thrombocytopenia History of hepatitis C Cholelithiasis Osteopenia Surgical History S/P colectomy Status post ablation of incompetent vein using laser (01/13/23) H/O tooth extraction History of appendectomy History of urethral stent History of cataract surgery H/O wrist surgery Family History Father Prostate cancer Mother Diabetes Maternal Grandfather Factor VIII deficiency hemophilia Social History Household Members: Spouse Household Members Other:: 1 Housing: House Are you a primary critical care physician to a significant other at home: No Do you presently have visiting nurse or other home services: No Alcohol intake: current Alcohol intake frequency: does not drink Alcohol type: beer Comment: no camera space available. Pt remains calm and cooperative, not impulsive Patient Tobacco Use Status: Never used Tobacco Tobacco use type: Cigarette e-Cigarette/Vaping Use: Never Used Second Hand Smoke Exposure: No service: No Current occupational status: retired Cognitive needs: No Hearing needs: No Vision needs: Yes Questionnaire PHQ-9 Over the last 2 weeks, how often have you been bothered by any of the following problems? 1. Little interest or pleasure in doing things: not at all 2. Feeling down, depressed, or hopeless: not at all 3. Trouble falling or staying asleep, or sleeping too much: not at all 4. Feeling tired or having little energy: not at all 5. Poor appetite or overeating: not at all 6. Feeling bad about yourself - or that you are a failure or have let yourself or your family down: not at all 7. Trouble concentrating on things, such as reading the newspaper or watching television: not at all 8. Moving or speaking so slowly that other people could have noticed. Or the opposite - being so fidgety or restless that you have been moving around a lot more than usual: not at all 9. Thoughts that you would be better off or of hurting yourself in some way: not at all Total score: 0 Depression Screening Interpretation: Negative Depression Screening Done: Yes Source: Developed by Drs. Rowdy Lugo, Georgie Braun, Willie Stevenson and colleagues, with an educational trinidad from [employer] Thrive Questionnaire Date Thrive assessed: 10/08/24 I am a: Patient What is your living situation today?: I have a steady place to live Within the past 12 months, did the food you bought not last and you didn't have the money to get more?: Never true Within the past 12 months, did you worry whether your food would run out before you got money to buy more?: Never true Do you have trouble paying for medicines?: No Do you have trouble getting transportation to medical appointments?: No Do you have trouble paying your heating and electricity bill?: No Do you have trouble taking care of your child, family member or friend?: No Do you have trouble with day-to-day activities such as bathing, preparing meals, shopping, managing finances, etc.?: No Are you currently unemployed and looking for a job?: No Are you interested in more education?: No Please select the resources that you would like help with: None Currently or been in a relationship where the following occur: No concerns reported THRIVE Score: 0 AUDIT C Alcohol Use Questionnaire (AUDIT-C) 1. How often do you have a drink containing alcohol?: Monthly or less 2. How many drinks containing alcohol do you have on a typical day when you are drinking?: 1 or 2 3. How often do you have six or more drinks on one occasion?: Never Total Score: 1 MARISOL-7 AMB Questionnaire MARISOL-7 Date MARISOL - 7 assessed: 10/08/24 Feeling nervous, anxious, or on edge: 0 = Not at all Not being able to stop or control worryin = Not at all Worrying too much about different things: 0 = Not at all Trouble relaxin = Not at all Being so restless that it is hard to sit still: 0 = Not at all Becoming easily annoyed or irritable: 0 = Not at all Feeling afraid as if something awful might happen: 0 = Not at all Total MARISOL-7 score (0-4 normal; 5-9 mild; 10-14 moderate; 15-21 severe): 0 Source: Developed by Drs. Rowdy Lugo, Georgie Braun, Willie Stevenson and colleagues, with an educational trinidad from [employer] Physical exam (Primary Care) Vital Signs: Last Vital Signs Pulse 86 10/08/24 08:22 BP 136/78 10/08/24 08:22 Pulse Ox 98 10/08/24 08:22 Oxygen Delivery Method Room Air 10/08/24 08:22 BMI result Body Mass Index 31.5 Tobacco/Smoking Status: Tobacco use Status Tobacco use date assessed 10/08/24 10/08/24 08:33 Patient Tobacco Use Status Never used Tobacco 10/08/24 08:33 Tobacco use type Cigarette 10/08/24 08:33 e-Cigarette/Vaping Use Never Used 10/08/24 08:33 PHQ-9: PHQ-9 Score PHQ-9: Total score 0 10/08/24 08:50 Depression Screening Interpretation: Negative Thrive Assessment: Date of Thrive Assessment Date Thrive assessed 10/08/24 10/08/24 08:33 Currently or been in a relationship where the following occur: No concerns reported Const General: alert; No acute distress Eyes Conjunctivae: conjunctivae normal Resp Auscultation: clear to auscultation bilaterally Cardio Rate: regular rate Rhythm: regular rhythm GI Inspection: Yes normal to inspection Extrem General: Yes normal to inspection and No edema Coding Level of Care Code Est Pt Level 4 (34237) Complex EM visit Add On G2211 Diagnoses Alcohol abuse F10.10 Atrial fibrillation I48.91 Renal stones N20.0 Obesity (BMI 30-39.9) E66.9 Orthostatic dizziness R42 L2 vertebral fracture S32.029A Cholelithiasis K80.20 Assessment & Plan Assessment & Plan (1) Alcohol abuse: Comment: stopped alcohol 06/2024 Code(s): F10.10 - Alcohol abuse, uncomplicated Category: Social Hx (2) Atrial fibrillation: Code(s): I48.91 - Unspecified atrial fibrillation Category: Medical (3) Renal stones: Comment: Right renal calculi December 2018 uric acid stone October 2019 stable 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 I MADE HIM AWARE THAT HE SHOULD LOSE ABOUT 10 LB OF WEIGHT Code(s): E66.9 - Obesity, unspecified Category: Medical (5) Orthostatic dizziness: Code(s): R42 - Dizziness and giddiness Category: Medical (6) L2 vertebral fracture: Code(s): S32.029A - Unspecified fracture of second lumbar vertebra, initial encounter for closed fracture Category: Medical (7) Cholelithiasis: Comment: March 2019 Code(s): K80.20 - Calculus of gallbladder without cholecystitis without obstruction Category: Medical Plan - For chronic low back pain, refer the patient to a neurosurgeon in [place] for further evaluation and management. - Continue current medication regimen, including brief use of narcotics and consider the addition of meloxicam for pain with strict adherence to dietary intake to mitigate gastric side effects. - For atrial fibrillation, maintain current therapy with Multaq and continue midodrine to manage blood pressure fluctuations, with cardiology follow-up as necessary. - Monitor blood pressure regularly given recent adjustments to antihypertensive therapy. - Address gallstones conservatively; educate the patient on symptoms of gallbladder inflammation and the need for surgical intervention if symptomatic. - Continue monitoring liver function through regular follow-ups, with emphasis on dietary modifications to manage fatty liver, primarily focusing on reducing fat intake. - Support continued efforts in alcohol cessation, providing resources such as counseling as needed. Orders: Referrals Neurosurgery Referral S32.029A - Unspecified fracture of second lumbar vertebra, initial encounter for closed fracture Medications: New oxycodone-acetaminophen 5-325 mg (Percocet) Partial Fill upon patient request. 1 tab PO DAILY PRN 30 tabs 0RF pain S32.029A - Unspecified fracture of second lumbar vertebra, initial encounter for closed fracture meloxicam 15 mg PO DAILY 30 tabs 0RF S32.029A - Unspecified fracture of second lumbar vertebra, initial encounter for closed fracture
== END 2024-10-08 09:08 | disposition home or self-care (01) ==
PROVIDERS: PCP Internal Medicine; Visit Provider Internal Medicine
DX: I48.91 Unspecified atrial fibrillation (principal); S32.029A Unspecified fracture of second lumbar vertebra, initial encounter for closed fracture; E66.9 Obesity, unspecified; Z68.31 Body mass index [BMI] 31.0-31.9, adult; F10.10 Alcohol abuse, uncomplicated; N20.0 Calculus of kidney; R42 Dizziness and giddiness; K80.20 Calculus of gallbladder without cholecystitis without obstruction

== ENCOUNTER → 2024-10-08 08:14 | Outpatient (BNVA) | payer MEDICARE, BC, SELFPAY | PROVIDERS: PCP Internal Medicine; Visit Provider Internal Medicine | DX: I48.91 Unspecified atrial fibrillation (principal); M25.50 Pain in unspecified joint; I10 Essential (primary) hypertension; G89.29 Other chronic pain; K76.0 Fatty (change of) liver, not elsewhere classified; F10.10 Alcohol abuse, uncomplicated; N20.0 Calculus of kidney; E66.9 Obesity, unspecified; R42 Dizziness and giddiness; K80.20 Calculus of gallbladder without cholecystitis without obstruction; S32.029A Unspecified fracture of second lumbar vertebra, initial encounter for closed fracture; X58.XXXA Exposure to other specified factors, initial encounter; Y93.9 Activity, unspecified; Y92.9 Unspecified place or not applicable; Y99.9 Unspecified external cause status | CPT/HCPCS: 96127; 99212 ==

== ENCOUNTER → 2024-10-10 10:03 | Outpatient (BNVA) | payer MEDICARE, BC, SELFPAY | PROVIDERS: PCP Internal Medicine; Visit Provider Internal Medicine ==

== ENCOUNTER 2024-10-16 12:47 | Outpatient (REF) | payer MEDICARE, BC, SELFPAY ==
--- NOTE | ~2024-10-16 | XR_ITS ---
ADDENDUM #1 Findings were acknowledged on 10/17/2024 at 3:56 PM. Electronically signed by: Rowdy Higuera MD 10/18/2024 07:02 AM EST RP ORIGINAL REPORT EXAMINATION: XR LUMBAR SPINE 4 OR MORE VIEWS HISTORY: S32.029A - Unspecified fracture of second lumbar vertebra, initial encounter COMPARISON: Correlation is made with a CT of the abdomen and pelvis dated 08/12/2024. FINDINGS: AP, and neutral, flexion, and extension lateral views of the lumbar spine are submitted. Osseous mineralization is normal. There is a severe compression deformity of L2 with fragmentation of the vertebral body and severe retropulsion of the posterior cortex. There is kyphosis at this level. This is markedly progressed since the prior study. There is mild to moderate anterior wedging of T12 which is unchanged in appearance from the prior CT scan. No abnormal motion is seen with flexion or extension. There is moderate degenerative disc disease with disc space narrowing and osteophyte formation. There is calcification of the abdominal aorta. IMPRESSION: Severe compression deformity of L2 with fragmentation and retropulsion and marked progression since the prior study. Further evaluation could be performed with MRI if this has not been recently performed and this is a new finding. Findings were sent to Dr. Parikh via secure text message on 10/17/2024 at 2:31 PM. Electronically signed by: Rowdy Higuera MD 10/17/2024 02:33 PM EST RP XR/XR lumbar spine 4V min
== END 2024-10-16 12:48 | disposition home or self-care (01) ==
LOC: HO.HOSX 12:47
PROVIDERS: PCP Internal Medicine; Referring Provider Internal Medicine; Visit Provider Physician Assistant
DX: S32.029A Unspecified fracture of second lumbar vertebra, initial encounter for closed fracture (principal)
CPT/HCPCS: 72110; 99202

== ENCOUNTER 2024-10-16 12:47 | Outpatient (AMB) | payer MEDICARE, BC, SELFPAY ==
--- NOTE | 2024-10-15 13:06 | HO.SPINEOV ---
Intake Visit Reasons: LBP with Xray order in Allergies No Known Allergies Allergy (Verified 10/08/24 08:22) Assessment & Plan Assessment & Plan Plan Dear Dr. Parikh, Thank you for referring Dirk to our office today. He is a pleasant 74-year-old male who was referred to our service today for a L2 fracture seen on CT scan imaging. PMH: [] Social hx:[] Medications:[] Allergies: [] Physical exam: [] Imaging review: [] Impression: [] Thank you for allowing us to care for your patient. The total time spent with this visit with this patient was[] minutes reviewing history, physical exam, [] imaging review, and implementation of treatment plan or further diagnostic testing Kevin Padilla MD,PhD [facility] Coding
--- NOTE | 2024-10-16 12:53 | A.SPINEOV_ITS ---
Vital Signs 10/16/24 13:19 Height 5 ft 8 in Weight 210 lb BMI 31.9 Intake Visit Reasons: LBP with Xray order in Intake Note: Mr. Rosado is here today c/o Low back pain. Churn Driller Required: No Allergies No Known Allergies Allergy (Verified 10/16/24 13:18) Physical Exam Vital Signs: BMI result Body Mass Index 31.9 Assessment & Plan Assessment & Plan (1) L2 vertebral fracture: Code(s): S32.029A - Unspecified fracture of second lumbar vertebra, initial encounter for closed fracture Category: Medical Plan Dear Dr. Parikh, Thank you for referring Dirk to our office today. [He is a pleasant 74-year-old male who comes in today with a chief complaint of low back pain. He states he has had severe low back pain since 08/11/2024. He identifies an inciting incident of falling in the bathroom of a hotel room in [place]. He was able to get up with assistance and ambulate thereafter, but has had severe back pain since. Most recently he was evaluated in the [place] ED and obtained a CT scan showing he had a burst fracture at L2. Apparently he was subsequently transferred to [facility], and when he was evaluated by their neurosurgery team, they declined to provide any interventions. He was supposed to be fitted with a LSO brace, but he has an ileostomy bag that prevents him from being able to wear the brace. In addition to this they initially had offered him surgery, but ended up discharging him home with pain medication after further evaluation. Overall it seems like he had a very tumulous experience at [facility]. Today, he reports 9/10 pain at rest. He denies any shooting pains into his bilateral lower extremities. He denies any numbness or tingling. He denies any strength deficits in his lower extremities. He ambulates with the assistance of a cane which he has done for the past 2-3 years for stability. He has been taking Tylenol, and utilizing lidocaine patches at home to help mitigate the pain. He is also taking daily 5 mg oxycodone in an effort to help mitigate the pain. He has not as of yet been to physical therapy or attempted cortisone injections. PMH: High blood pressure, hyperlipidemia, hemophilia a, ileostomy, nephrolithiasis, cholelithiasis, atrial fibrillation. Social hx: The patient does not smoke, reports no substance use. Medications: See Whois list. Allergies: NKDA. Physical exam: The patient has 5/5 strength in his upper and lower extremities. He ambulates with the assistance of a cane. His gait is slow but nonantalgic and non spastic. He is able to get himself up onto the examination table without assistance, and does not need to utilize the stool. Reflexes are 3+ hyperactive diffusely. (+) right-sided Edge's, (-) left-sided Edge's. (+) left-sided Babinski's. (-) right-sided Babinski's. Imaging review: X-ray of the lumbar spine completed here at [facility] shows L2 burst fracture of undetermined age. CT scan can not be opened, I have already spoken to IT about this. I am going to have the patient try and obtain the actual disc from his CT scan for us to review. Impression: Dirk is a pleasant 74-year-old male comes in today with a chief complaint of severe low back pain after an acute inciting incident of a fall in her bathroom in [place]. This happened about 2 months ago. He was evaluated here to [facility] Emergency Department, however unfortunately his CT scan of the abdomen and pelvis is unable to be opened for some until the reason. I have contacted [facility] department about this in the patient will be going to the radiology department in an attempt to obtain the actual disc from his CT scan. For the time being we are relying on his x-ray imaging that does show this burst fracture. I believe this is the likely source of his pain. We discussed the treatment course for a situation such as his given that he is unable to wear a brace. His options essentially are to allow it to heal on its own as there is no obvious neurological impingement as a result of this fracture given he has no radicular symptoms and no numbness/tingling/weakness. I belie ve his reflexes elicited on exam are likely secondary to his SSRI use; however having unilateral Edge's and unilateral but Babinski's on opposite sides is very odd. I would like to review the CT scan of the lumbar spine for this patient with the attending neurosurgeon and will follow up with the patient thereafter. He may need posterior fixation above and below the segment of the burst fracture in order to stabilize this area. Obviously his extensive medical comorbidities we will need to be taken into consideration if making any surgical decisions. Thank you for allowing us to care for your patient. The total time spent with this visit with this patient was 45 minutes reviewing history, physical exam, MRI imaging review, and implementation of treatment plan or further diagnostic testing Kevin Padilla MD,PhD [facility] Orders: Orders XR lumbar spine 4V min Today S32.029A - Unspecified fracture of second lumbar vertebra, initial encounter for closed fracture Coding Level of Care Code New Pt Level 4 (64142) Diagnoses L2 vertebral fracture S32.029A
[2024-10-16 13:19] VITALS: BMI 31.9
== END 2024-10-16 15:10 | disposition home or self-care (01) ==
PROVIDERS: PCP Internal Medicine; Referring Provider Internal Medicine; Visit Provider Physician Assistant
DX: S32.029A Unspecified fracture of second lumbar vertebra, initial encounter for closed fracture (principal)
CPT/HCPCS: 99204

== ENCOUNTER 2024-11-04 14:47 | Outpatient (REF) | payer MEDICARE, BC, SELFPAY ==
--- NOTE | ~2024-11-04 | XR_ITS ---
. EXAMINATION: X-ray lumbar spine. CLINICAL INFORMATION: Fracture deformity L2. COMPARISON: October 16, 2024. TECHNIQUE: Lateral views in neutral flexion and extension position. AP view in standing position. FINDINGS: Comminuted fracture deformity representing 90% volume loss, L2 vertebra. Wedge-shaped compression deformity likely old at T12 resulting in kyphotic deformity. Grade 1 retrolisthesis at L2-3 in neutral position which persists during flexion and extension position. Osteopenia versus osteoporosis. Multilevel marginal osteophyte formation and endplate sclerosis with decreased intervertebral disc height. Vascular complications, aorta. XR/XR lumbar spine 4V min IMPRESSION: Compression fracture deformity/burst fracture L2 similar since prior exam. Stable grade 1 retrolisthesis L2-3 without instability. Electronically signed by: Gavino Morales MD 11/04/2024 03:55 PM KYM DONOVAN
== END 2024-11-04 14:48 | disposition home or self-care (01) ==
LOC: HO.HOSX 14:47
PROVIDERS: PCP Internal Medicine; Visit Provider Physician Assistant
DX: S32.029A Unspecified fracture of second lumbar vertebra, initial encounter for closed fracture (principal)
CPT/HCPCS: 72110; 99212

== ENCOUNTER 2024-11-04 14:47 | Outpatient (AMB) | payer MEDICARE, BC, SELFPAY ==
--- NOTE | 2024-11-04 15:01 | HO.SPINEOV ---
Intake Visit Reasons: Follow up Intake Note: Mr. Rosado is here today for a F/u. Sample Card Maker Required: No Allergies No Known Allergies Allergy (Verified 11/04/24 15:02) Assessment & Plan Assessment & Plan (1) L2 vertebral fracture: Code(s): S32.029A - Unspecified fracture of second lumbar vertebra, initial encounter for closed fracture Category: Medical Plan Mr Rosado is here to follow-up today on his x-rays relating to his L2 burst fracture. Kevin DAVIS saw him a few weeks ago. The plan with Dr. Padilla was to check on this gentleman periodically with x-rays and neurological exams to make sure nothing has been progressing. The patient reports his pain remains the same on mostly the right side of his lower back region. Has no radicular complaints, no cauda equina symptoms. Denies any loss of bowel or bladder function. The pain has been uncomfortable getting up moving around during the day but when he sitting he is okay. On my exam, he is able to stand up independently on his own walk down the hallway, has a flexed posture and walks somewhat spastically. On neurological exam he is demonstrating some mild hand weakness and a 4-5 left triceps weakness. His right iliopsoas is approximately 1 to 2/5. The rest of his lower extremity strength is full. He is diffusely hyperreflexic with Magen sign in both hands. Patella reflexes very brisk as well. Clonus in his left ankle. I will send him for a new set of x-rays today. As a precaution as well I will send him for cervical MRI just to exclude myelopathy given his physical exam findings. I will call the patient once I have a chance to review his x-ray with Dr. Padilla. Total amount of time spent in this visit was 20 minutes in discussion of symptoms, [] imaging results and subsequent plan of care Tristin Padilla MD,PhD [facility] Orders: Orders XR lumbar spine 4V min Today S32.029A - Unspecified fracture of second lumbar vertebra, initial encounter for closed fracture MR cervical spine wo con Today R29.898 - Other symptoms and signs involving the musculoskeletal system Coding Level of Care Code Est Pt Level 3 (23097) Diagnoses L2 vertebral fracture S32.029A
== END 2024-11-04 15:40 | disposition home or self-care (01) ==
PROVIDERS: PCP Internal Medicine; Visit Provider Physician Assistant
DX: S32.029A Unspecified fracture of second lumbar vertebra, initial encounter for closed fracture (principal)
CPT/HCPCS: 99213

== ENCOUNTER → 2024-11-04 15:36 | Outpatient (BNV) | payer MEDICARE, BC, SELFPAY | PROVIDERS: PCP Internal Medicine; Visit Provider Radiology Diagnostic Radiology | DX: S32.020A Wedge compression fracture of second lumbar vertebra, initial encounter for closed fracture (principal) | CPT/HCPCS: 72110 ==

== ENCOUNTER 2024-11-11 08:59 | Outpatient (AMB) | payer MEDICARE, BC, SELFPAY ==
[2024-11-11 09:10] VITALS: BP 110/56; PULSE 70; BMI 32.6
--- NOTE | 2024-11-11 09:10 | MHC.OFFVIS ---
Vital Signs 11/11/24 09:10 Height 5 ft 8 in Weight 214 lb 11.684 oz BMI 32.6 BP 110/56 L Blood Pressure Location Lt brachial Position Sitting Pulse 70 Intake Visit Reasons: Follow up Film Library Clerk Required: No Accompanied by: Self / Same As Patient Allergies No Known Allergies Allergy (Verified 11/04/24 15:02) Medication List - Last Reconciled 11/11/24 by Alex Dueñas MD aspirin 81 mg PO DAILY calcium carbonate-vitamin D3 600 mg-5 mcg (200 unit) (Calcium 600 + D(3)) 1 tab PO DAILY cyanocobalamin (vitamin B-12) 1,000 mcg PO DAILY dronedarone (Multaq) 400 mg PO BID finasteride 5 mg PO DAILY 90 days folic acid 1 mg PO DAILY gabapentin 300 mg PO DAILY midodrine 2.5 mg PO TID nystatin 1 appl topical DAILY PRN oxycodone-acetaminophen 5-325 mg (Percocet) 1 tab PO DAILY PRN potassium citrate ER 20 mEq (2 x 10 mEq (1,080 mg)) PO DAILY@1700 90 days pyridoxine (vitamin B6) 100 mg PO DAILY 90 days sertraline 25 mg PO DAILY simvastatin 5 mg PO BEDTIME walker As directed HPI Comments Details: Dirk returns for follow-up. Over the last year or so, he was having persistent atrial flutter and he was referred to [facility] EP for management. He also has a history of hemophilia and hence was on anticoagulation. Ablation was arranged but it seems that the patient never went through with it. He does not feel any clear symptoms from the atrial arrhythmias. More recently, Holter shows rather sinus rhythm with only small burden of atrial flutter/fibrillation. Currently, his main issues rather orthostatic dizziness. It seems that he was admitted to [facility] with a fall due to the same reason. Subsequently, started on Midodrine. During that admission, it seems that his beta-blockers and diuretics were stopped. Per discharge summary, terazosin was also stopped. There was a question of Parkinson's in the discharge summary but patient's states that he saw Neurology and they do not believe it is Parkinson's. Overall, he states he feels fine. No new cardiac concerns. Blood pressure itself seems stable. [facility] Medical History (Updated 10/08/24 @ 08:55 by Jennifer Parikh MD) L2 vertebral fracture CKD (chronic kidney disease) stage 3, GFR 30-59 ml/min Hemophilia A Dyspnea on exertion Weakness Atrial flutter with rapid ventricular response LACY (acute kidney injury) Atrial fibrillation with rapid ventricular response Back pain Bilateral kidney stones Ileostomy in place Lymphangitis Edema of lower extremity Parastomal hernia Obesity (BMI 30-39.9) Nocturnal hypoxemia Restrictive lung disease Essential hypertension Hemophilia Loja cyst Renal stones History of cataract BPH (benign prostatic hyperplasia) Gout Crohn's disease Peripheral vascular disease Thrombocytopenia History of hepatitis C Cholelithiasis Osteopenia Surgical History S/P colectomy Status post ablation of incompetent vein using laser (01/13/23) H/O tooth extraction History of appendectomy History of urethral stent History of cataract surgery H/O wrist surgery Family History Father Prostate cancer Mother Diabetes Maternal Grandfather Factor VIII deficiency hemophilia Social History Household Members: Spouse Household Members Other:: 1 Housing: House Are you a primary healthcare economics manager to a significant other at home: No Do you presently have visiting nurse or other home services: No Alcohol intake: current Alcohol intake frequency: does not drink Alcohol type: beer Comment: no camera space available. Pt remains calm and cooperative, not impulsive Patient Tobacco Use Status: Never used Tobacco Tobacco use type: Cigarette e-Cigarette/Vaping Use: Never Used Second Hand Smoke Exposure: No service: No Current occupational status: retired Cognitive needs: No Hearing needs: No Vision needs: Yes Review of Systems Const Denies chills, Denies fatigue, Denies fever(s), Denies weight gain and Denies weight loss ENT Denies dizziness Card Denies chest pain, Denies leg edema, Denies lightheadedness, Denies palpitations, Denies dyspnea on exertion, Denies orthopnea and Denies other Resp Denies cough and Denies dyspnea on exertion GI Denies hematochezia and Denies change in stool character Musc Denies abnormal gait, Denies muscle weakness, Denies numbness, Denies radiating pain into limb and Denies tingling Neuro Denies abnormal gait, Denies dizziness, Denies numbness and Denies tingling Endo Denies fatigue and Denies palpitations Physical Exam Vital Signs: Last Vital Signs Pulse 70 11/11/24 09:10 BP 110/56 L 11/11/24 09:10 BMI result Body Mass Index 32.6 Const General: comfortable and no acute distress Orientation/consciousness: patient oriented x3 HEENT Other: Unremarkable Head: Yes normal to inspection Neck Neck: Yes normal visual inspection Chest Chest palpation & inspection: normal inspection of the chest Resp Auscultation: clear to auscultation bilaterally Cardio Palpation: normal PMI Heart sounds: S1 normal heart sound present, S2 normal heart sound present, no gallops, no murmurs and no rubs GI Palpation (GI): Soft to palpation Back/Spine/Pelvis Other: unremarkable Skin General skin exam: no rashes or lesions noted Neuro General: patient oriented x3 Extrem General: Yes normal to inspection Psych Mental Status: mental status grossly normal Office Procedures EKG Details: EKG with underlying sinus rhythm at 70/Min; RSR' pattern in V1; borderline MN at 200 millisecond; [place]. [id number], Complete Assessment & Plan Assessment & Plan (1) Atrial flutter by electrocardiogram: Code(s): I48.92 - Unspecified atrial flutter Category: Medical Plan: In the past, he used to have a very high PAC burden of as much as 41%. Recent Holter had shown atrial flutter with an average rate of 85/Min but reported as atrial fibrillation. In a subsequent Holter, he was mostly in sinus rhythm with a very small burden of probably atrial flutter with rapid rate. Preserved LVEF on echocardiogram. Beta-blockers have been stopped because of orthostatic hypotension/fall. 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 He did not follow through with the EP plan for ablation. Hence we will keep him on Multaq and he seems to be tolerating that well. In the past, has had sleep studies but no clear evidence of REGINO. (2) Orthostatic hypotension: Code(s): I95.1 - Orthostatic hypotension Category: Medical Plan: Continue midodrine. Off metoprolol and Lasix. Seems overall improved. Plan Discussed with significant other who came for appointment. Coding Level of Care Code Est Pt Level 4 (67538) Diagnoses Atrial flutter by electrocardiogram I48.92 Orthostatic hypotension I95.1 CPT Codes EKG - CPT: 16962-[id number], Complete ([id number])
== END 2024-11-11 09:36 | disposition home or self-care (01) ==
PROVIDERS: PCP Internal Medicine; Visit Provider Internal Medicine
DX: I48.92 Unspecified atrial flutter (principal); I95.1 Orthostatic hypotension
CPT/HCPCS: 93010; 99214

== ENCOUNTER → 2024-11-11 08:59 | Outpatient (BNVA) | payer MEDICARE, BC, SELFPAY | PROVIDERS: PCP Internal Medicine; Visit Provider Internal Medicine | DX: I48.92 Unspecified atrial flutter (principal); I95.1 Orthostatic hypotension; R42 Dizziness and giddiness; Z91.81 History of falling | CPT/HCPCS: 93005; 99212 ==

== ENCOUNTER 2024-11-13 10:17 | Outpatient (AMB) | payer MEDICARE, BC, SELFPAY ==
--- NOTE | 2024-11-13 10:20 | MHC.PC.OV ---
Vital Signs 11/13/24 10:23 Height 5 ft 8 in Weight 214 lb 6 oz BMI 32.6 BP 122/70 Blood Pressure Location Lt brachial Position Sitting Pulse 86 Pulse Source Pulse Oximeter Temp 97.1 F Temp Source Skin Pulse Oximetry (%) 97 Oxygen Delivery Method Room Air Intake Visit Reasons: 6 Weeks f/u Intake Note: Patient is here to follow up on Afib, HTN. Video Systems Engineer Required: No Counter Former: Present Accompanied by: Spouse Allergies No Known Allergies Allergy (Verified 11/13/24 10:22) Medication List - Last Reconciled 11/13/24 by Sharda Armenta PA-C aspirin 81 mg PO DAILY calcium carbonate-vitamin D3 600 mg-5 mcg (200 unit) (Calcium 600 + D(3)) 1 tab PO DAILY cyanocobalamin (vitamin B-12) 1,000 mcg PO DAILY dronedarone (Multaq) 400 mg PO BID finasteride 5 mg PO DAILY 90 days folic acid 1 mg PO DAILY gabapentin 300 mg PO DAILY midodrine 2.5 mg PO TID nystatin 1 appl topical DAILY PRN oxycodone-acetaminophen 5-325 mg (Percocet) 1 tab PO DAILY PRN potassium citrate ER 20 mEq (2 x 10 mEq (1,080 mg)) PO DAILY@1700 90 days pyridoxine (vitamin B6) 100 mg PO DAILY 90 days sertraline 25 mg PO DAILY simvastatin 5 mg PO BEDTIME walker As directed Tobacco use date assessed: 11/13/24 Fall risk assessment: No Falls in past year Last assessed Fall Risk: 11/13/24 Dental Screening Dental Screen Date: 10/08/24 HPI 6 Weeks f/u HPI Details 74 year old obese male with past history of AFib, hypercholesterolemia, hypertension last seen by Dr. Parikh 10/2024 coming in for follow up. In review of the notes, patient was seen by Cardiology 11/11/2024 after completing Holter monitor found to be in atrial flutter, beta blockers held due to hypotension and anticoagulation held due to hemophilia. Continued on Multaq and Midodrine. Patient was seen by spine center 11/04/2024 for L2 vertebral fracture sent for new x-rays and cervical MRI to exclude myelopathy. Presenting with persistent pain issues post-vertebral fracture. He reports no improvement in healing and increased pain since his last visit. Surgery is unavailable due to the fragility of his bones, leading to the current management of watchful waiting. Scheduled for a cervical MRI to investigate possible nerve impingement causing neck pain. No neurological deficits like numbness or dizziness noted, though pain remains a significant issue. His pain limits mobility, necessitating support, and ongoing use of oxycodone provides insufficient relief. Previous use of meloxicam was ineffective. He maintains blood pressure control post-modification of medications, with no lightheadedness or dizziness at current. [facility] Medical History L2 vertebral fracture CKD (chronic kidney disease) stage 3, GFR 30-59 ml/min Hemophilia A Dyspnea on exertion Weakness Atrial flutter with rapid ventricular response LACY (acute kidney injury) Atrial fibrillation with rapid ventricular response Back pain Bilateral kidney stones Ileostomy in place Lymphangitis Edema of lower extremity Parastomal hernia Obesity (BMI 30-39.9) Nocturnal hypoxemia Restrictive lung disease Essential hypertension Hemophilia Loja cyst Renal stones History of cataract BPH (benign prostatic hyperplasia) Gout Crohn's disease Peripheral vascular disease Thrombocytopenia History of hepatitis C Cholelithiasis Osteopenia Surgical History S/P colectomy Status post ablation of incompetent vein using laser (01/13/23) H/O tooth extraction History of appendectomy History of urethral stent History of cataract surgery H/O wrist surgery Family History Father Prostate cancer Mother Diabetes Maternal Grandfather Factor VIII deficiency hemophilia Social History Household Members: Spouse Household Members Other:: 1 Housing: House Are you a primary resident care provider to a significant other at home: No Do you presently have visiting nurse or other home services: No Alcohol intake: current Alcohol intake frequency: does not drink Alcohol type: beer Comment: no camera space available. Pt remains calm and cooperative, not impulsive Patient Tobacco Use Status: Never used Tobacco Tobacco use type: Cigarette e-Cigarette/Vaping Use: Never Used Second Hand Smoke Exposure: No service: No Current occupational status: retired Cognitive needs: No Hearing needs: No Vision needs: Yes Questionnaire Thrive Questionnaire Date Thrive assessed: 10/08/24 AUDIT C Alcohol Use Questionnaire (AUDIT-C) 3. How often do you have six or more drinks on one occasion?: Never Total Score: 0 MARISOL-7 AMB Questionnaire MARISOL-7 Date MARISOL - 7 assessed: 10/08/24 Source: Developed by Drs. Rowdy Lugo, Georgie Braun, Willie Stevenson and colleagues, with an educational trinidad from [employer]. Review of Systems Const Denies body aches, Denies chills, Denies fever(s), Denies headache(s) and Denies poor appetite Eyes Reports no additional complaints ENT Denies dizziness and Denies headache(s) Card Denies chest pain, Denies lightheadedness and Denies dyspnea Resp Denies dyspnea GI Details: No involuntary loss of stool Reports no additional complaints Details: No involuntary loss of urine Reports no additional complaints Musc Reports abnormal gait and Reports back pain Skin/Breast Reports system reviewed and no additional complaints, except as documented Neuro Reports abnormal gait, Denies dizziness and Denies headache(s) Psych Reports no additional complaints Physical exam (Primary Care) Vital Signs: Last Vital Signs Temp 97.1 F 11/13/24 10:23 Pulse 86 11/13/24 10:23 BP 122/70 11/13/24 10:23 Pulse Ox 97 11/13/24 10:23 Oxygen Delivery Method Room Air 11/13/24 10:23 BMI result Body Mass Index 32.6 Tobacco/Smoking Status: Tobacco use Status Tobacco use date assessed 11/13/24 11/13/24 10:27 Patient Tobacco Use Status Never used Tobacco 11/13/24 10:21 Tobacco use type Cigarette 11/13/24 10:21 e-Cigarette/Vaping Use Never Used 11/13/24 10:21 Thrive Assessment: Date of Thrive Assessment Date Thrive assessed 10/08/24 11/13/24 10:21 Const General: cooperative, healthy appearing, comfortable and no acute distress Orientation/consciousness: patient oriented x3 HENMT Head: Yes normocephalic Ears: hearing grossly normal bilaterally General nose exam: Normal external nose present Eyes General: appearance normal, both eyes and all related structures Conjunctivae: conjunctivae normal Neck Neck: Yes full ROM and Yes no lymphadenopathy Resp Effort & Inspection: normal respiratory effort Auscultation: clear to auscultation bilaterally, no crackles, no rales, no rhonchi and no wheezes Cardio Rate: regular rate Rhythm: regular rhythm Skin General skin exam: no rashes or lesions noted Neuro General: patient oriented x3 Gait exam (Neuro): Normal gait present Extrem Other: Intact strength and sensation in bilateral lower extremities General: Yes normal to inspection, Yes full ROM and No edema Psych Affect: normal affect Attitude: cooperative Insight: Good insight present (Psych) Judgement: Good judgement present (Psych) Coding Level of Care Code Est Pt Level 4 (99819) Diagnoses L2 vertebral fracture S32.029A Atrial flutter by electrocardiogram I48.92 Hypercholesteremia E78.00 Essential hypertension I10 Obesity (BMI 30-39.9) E66.9 Assessment & Plan Assessment & Plan (1) L2 vertebral fracture: Code(s): S32.029A - Unspecified fracture of second lumbar vertebra, initial encounter for closed fracture Category: Medical Plan: Currently following with Dr. Sarah's planned to have serial imaging and MRI scheduled. The current management includes addressing vertebral fracture management with a non-surgical approach. An MRI will provide further insights into cervical nerve involvement for better-targeted therapies. Trialing Celebrex after meloxicam's ineffectiveness, while considering muscle relaxant use with guard against excessive sedation. Advised follow-up in one month, alterable based on patient progress and MRI findings. Referral placed to pain management as well (2) Atrial flutter by electrocardiogram: Code(s): I48.92 - Unspecified atrial flutter Category: Medical Plan: Recently seen by primary teaching assistant metoprolol discontinued due to lightheadedness and patient not candidate for anticoagulation due to hemophilia. Continue to follow with cardiology's recommendations. Continue on Multaq (3) Hypercholesteremia: Code(s): E78.00 - Pure hypercholesterolemia, unspecified Category: Medical Plan: Avoid foods that are high in cholesterol such as red meat, fried foods, eggs and baked goods. Triglyceride goal of less than 150 and LDL goal of less than 70. Continue on simvastatin 5 (4) Essential hypertension: Code(s): I10 - Essential (primary) hypertension Category: Medical Plan: Continue on current blood pressure medication. Avoid salt intake and encourage healthy diet and regular exercise. (5) Obesity (BMI 30-39.9): Comment: PATIENT IS MODERATELY OBESE THERE HAS BEEN NO RECENT INCREASE IN HIS WEIGHT. I MADE HIM AWARE THAT HE SHOULD LOSE ABOUT 10 LB OF WEIGHT Code(s): E66.9 - Obesity, unspecified Category: Medical Plan: Healthy diet and regular exercise is encouraged. Plan This note was constructed using voice recognition software. While every effort has been made to ensure accuracy and chain maker loom control, still areas may have been included sometimes these areas may affect the content or meeting of the given symptoms. Total time spent caring for the patient today was 20 minutes. This includes time spent before the visit reviewing the chart, time spent during the visit, and time spent after the visit and documentation. Orders: Orders Lipid Panel Today E78.00 - Pure hypercholesterolemia, unspecified Referrals Pain Management Referral S32.029A - Unspecified fracture of second lumbar vertebra, initial encounter for closed fracture Medications: New celecoxib (Celebrex) 100 mg PO BID 30 caps 0RF tizanidine 4 mg PO BEDTIME PRN 20 caps 0RF muscle spasticity
[2024-11-13 10:23] VITALS: BP 122/70; PULSE 86; TEMP 36.2; O2SAT 97; BMI 32.6
--- OUTSIDE RECORDS SUMMARY | 2024-11-13 12:06 | XMS_ITS | Patient Health Record ---
Author Organization [facility] Address [address] [place] [address] Care Team Providers Care Carpenter Rough Name Role Phone Po Jennifer SHOEMAKER Primary Care Provider Rowdy Kelley [phone] ALLERGIES No Known Allergies REASON FOR REFERRAL No Information MEDICATIONS Medication SIG (Take, Route, Frequency, Duration) Notes Start Date End Date Status Metoprolol Succinate ER 25 MG TAKE 1 TABLET BY MOUTH DAILY Oral for 90 Active Potassium Citrate ER 10 MEQ (1080 MG) Oral for 90 Active Vitamin B 12 Active Calcium + D 500-1000-40 MG-UNT-MCG Orally Twice a day Active Milk Thistle Active Vitamin B6 Active IMMUNIZATIONS Vaccine Route Administration Date Status Comme nts Influenza Unknown 07/02/2021 Administered SOCIAL HISTORY Sex Assigned At : Social History Observation Description Sex Assigned At Unknown PROBLEMS Problem Type ICD Code Onset Dates Problem Status W/U Status Risk SNOMED Code Notes Problem 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) Active confirmed Ileostomy pre sent (160906541) Problem Chronic hepatitis C without hepatic coma (B18.2) Active confirmed 354513943 Problem Abnormal liver ultrasound (R93.2) Active confirmed 45733529702324763 Problem History of hepatitis C (Z86.19) Active confirmed 48451450422626 Problem Liver fibrosis (K74.00) Active confirmed 46525243 PLAN OF TREATMENT Pending Test Test Name Order Date BUN 12/09/2021 LIVER PROFILE 02/11/2015 LIVER PROFILE 07/15/2015 LIVER PROFILE 09/06/2015 LIVER PROFILE 03/21/2015 CBC w DIFF 03/21/2015 CBC w DIFF 02/11/2015 CBC w DIFF 09/06/2015 ALPHA-FETOPROTEIN,TUMOR MARKER 12/06/201 5 ALPHA-FETOPROTEIN,TUMOR MARKER 2 HEPATITIS C VIRAL LOAD 03/21/2015 HEPATITIS C VIRAL LOAD 09/06/2015 HEPATITIS C VIRAL LOAD 07/15/2015 HEPATITIS C VIRAL LOAD 02/11/2015 HEPATITIS C VIRAL LOAD 10/27/2021 MRI ABD W&WO CONTRAST 12/09/2021 US ABD 11/06/2021 Creatinine 12/09/2021 Insurance Providers Payer Name Payer Address Payer Phone Subscriber Number Group Number Insured Name Patient Relationship to Insured Coverage Start Date Coverage End Date [facility] [address] [place], [place] [id number] [phone] [id number] HALLIE JONES Self - patient is the insured MEDICAL (GENERAL) HISTORY Medical History History ICD Code Crohn's disease-s/p proctocolectomy with ileostomy Hepatitis C-he has never had a liver biopsy due to his hemophilia-Rx'd with non-pegylated IF t.i.w. in 1996 for 7 months,; nonpegylated IF t.i.w. with Ribavirin in 1997; 2003 Rx'd with pegylated IF and Ribavirin for 48 weeks-his Hep C viral load became nondetectable while on this, but he did not have a sustained response; has Genotype 1. He was treated with Harvoni from January of 2015 through the end of July of 2015--24 weeks. His hepatitis C viral load was negative as of May 2015, September 2015, and on January 04, 2016.. Splenomegaly Gallstones-asymptomatic--he is aware of this finding hemophilia Denies [place],DM,CVA,Lung disease,renal dise ase Kidney stones he had a negative liver ultr asound and normal alpha-fetoprotein level in September of 2012--his AST was 106 and ALT 105 at that time--his CBC was normal except for borderline platelet count 148,000 and his PT was normal with an INR 1.0 normal alpha-fetoprotein lev el in September of 2013-his abdominal ultrasound revealed changes of chronic liver disease and splenomegaly, and his known gallstones Surgical History Surgery Date(Month/Year) Proctocolectomy with ileosto my in 1970 for Crohn's disease-he had had a previous partial colectomy prior to that Finger surgery 01/2011 for a laceration Wrist surgery Kidney stones removed 2019 Cataract surgery bilateral 2020 May be having a parastomal hernia repair with Dr. Nazario in 2021
== END 2024-11-13 11:02 | disposition home or self-care (01) ==
PROVIDERS: PCP Internal Medicine
DX: S32.029A Unspecified fracture of second lumbar vertebra, initial encounter for closed fracture (principal); I48.92 Unspecified atrial flutter; E78.00 Pure hypercholesterolemia, unspecified; I10 Essential (primary) hypertension; E66.9 Obesity, unspecified

== ENCOUNTER → 2024-11-13 10:17 | Outpatient (BNVA) | payer MEDICARE, BC, SELFPAY | PROVIDERS: PCP Internal Medicine | DX: S32.029D Unspecified fracture of second lumbar vertebra, subsequent encounter for fracture with routine healing (principal); I48.92 Unspecified atrial flutter; E78.00 Pure hypercholesterolemia, unspecified; I10 Essential (primary) hypertension; E66.9 Obesity, unspecified | CPT/HCPCS: 99212 ==

== ENCOUNTER 2024-11-16 08:26 | Outpatient (REF) | payer MEDICARE, BC, SELFPAY ==
--- NOTE | ~2024-11-16 | MR_ITS ---
EXAMINATION: MR CERVICAL SPINE WITHOUT CONTRAST CLINICAL INFORMATION: Other symptoms and signs involving the musculoskeletal system. Prior fall in August 2024 resulting in lumbar fracture. COMPARISON: Correlated to CT dated June 28, 2024. TECHNIQUE: MRI of the cervical spine was obtained using routine sequences without contrast. FINDINGS: Craniocervical junction is intact. No bone marrow STIR signal abnormality. S-shaped curvature of the cervical thoracic spine. Multilevel marginal osteophyte formation and disc desiccation endplate irregularity C3 C7 more conspicuous at C5-6 C6-7 and to a lesser extent C4-5. Grade 1 anterolisthesis C7-T1. Ligamentum flavum hypertrophy resulting in buckling deformity of the dorsal aspect of the thecal sac at C4-5, C6-7, C7-T1 and to a lesser extent C5-6. Cervical spinal cord signal is normal. C2-3: Broad-based disc osteophyte complex formation. Facet joint hypertrophy, left greater than the right side. Focal 5 mm fluid signal characteristic in the left facet joint. No central spinal canal stenosis. No cord compression. Left neuroforamina stenosis. C3-4: Broad-based disc osteophyte complex formation. No cord compression. Facet joint hypertrophy, left greater than the right side. Left neuroforamina narrowing. C4-5: Broad-based disc osteophyte complex formation abutting the cord resulting in CSF effacement of the thecal sac and the ventral aspect. There is hypertrophy of ligamentum flavum resulting in CSF effacement of the dorsal aspect of the thecal sac. There is flattening of the spinal cord. No cord signal abnormality. Facet joint hypertrophy bilaterally. Bilateral neuroforamina stenosis. C5-6: Broad-based disc osteophyte complex formation resulting in ventral deformity of the thecal sac. Facet joint hypertrophy bilaterally. Bilateral neuroforamina stenosis, right greater than the left side. C6-7: Broad-based disc osteophyte complex formation resulting in ventral deformity of the thecal sac and CSF effacement. Facet joint hypertrophy bilaterally. Bilateral neuroforamina stenosis. Hypertrophy of the ligamentum flavum. Dorsal deformity of the thecal sac. C7-T1: Broad-based disc osteophyte complex formation. Grade 1 anterolisthesis. No cord signal abnormality. Facet joint hypertrophy. Bilateral neuroforamina stenosis left greater than the right side. No prevertebral compartment hematoma, mass or fluid collection. Flow-void signal within the main vessels is normal. Left vertebral artery slightly dominant. Prominence of the extra-axial CSF spaces in the posterior cranial fossa and within the cerebellar folia.. MR/MR cervical spine wo con IMPRESSION: Multilevel cervical spondylosis, C2-3 to C7-T1 resulting in central spinal canal stenosis and likely cord compression without cord edema and or myelopathy at C4-5, C6-7 levels and multilevel neuroforamina stenosis. Grade 1 anterolisthesis C7-T1 likely degenerative. Probable scoliosis, cervical thoracic spine. Electronically signed by: Gavino Morales MD 11/19/2024 08:14 AM K[facility]
--- OUTSIDE RECORDS SUMMARY | 2024-11-16 08:29 | XMS_ITS | Patient Health Record ---
Author Organization [facility] Address [address] [place] [address] Care Team Providers Care Product Development Chemist Name Role Phone Po Jennifer SHOEMAKER Primary Care Provider Rowdy Kelley [phone] ALLERGIES No Known Allergies REASON FOR REFERRAL [...] status (Z93.2) Active confirmed Ileostomy pre sent (577100409) Problem Chronic hepatitis C without hepatic coma (B18.2) Active confirmed 741618237 Problem Abnormal liver ultrasound (R93.2) Active confirmed 14930430055542204 Problem History of hepatitis C (Z86.19) Active confirmed 11321298062722 Problem Liver fibrosis (K74.00) Active confirmed 49482339 PLAN OF TREATMENT Pending Test Test Name [...] Insured Coverage Start Date Coverage End Date [facility] [address] [place], [place] [id number] [phone] [id number] HALLIE JONES Self - patient is the [...] is aware of this finding hemophilia Denies [place],DM,CVA,Lung disease,renal dise ase Kidney stones he had [...]
== END 2024-11-16 08:27 | disposition home or self-care (01) ==
LOC: HO.MRI 08:26
PROVIDERS: PCP Internal Medicine; Visit Provider Physician Assistant
DX: R29.898 Other symptoms and signs involving the musculoskeletal system (principal)
CPT/HCPCS: 72141

== ENCOUNTER → 2024-11-16 08:29 | Outpatient (BNV) | payer MEDICARE, BC, SELFPAY | PROVIDERS: PCP Internal Medicine; Visit Provider Radiology Diagnostic Radiology | DX: M47.812 Spondylosis without myelopathy or radiculopathy, cervical region (principal); M48.02 Spinal stenosis, cervical region | CPT/HCPCS: 72141 ==

== ENCOUNTER 2024-11-22 10:32 | Outpatient (AMB) | payer MEDICARE, BC, SELFPAY ==
--- NOTE | 2024-11-22 10:34 | A.OFFVIS_ITS ---
Vital Signs 11/22/24 10:43 Height 6 ft Weight 210 lb BMI 28.5 BP 133/69 Blood Pressure Location Rt brachial Position Sitting Pulse 101 H Pulse Source Pulse Oximeter Pulse Oximetry (%) 97 Oxygen Delivery Method Room Air Intake Visit Reasons: Unspecified fracture of second lumbar vertebra Intake Note: Pain today 9/10 Stock House Worker Required: No Accompanied by: Spouse Allergies No Known Allergies Allergy (Verified 11/22/24 10:43) HPI Comments Details: Dirk is a very pleasant 74-year-old male who presents to the office today for evaluation and management of his chronic lower back pain He has been suffering with this pain since 08/21/2024 Pain started after a fall from standing position where he landed on his buttocks He was evaluated after and found to have compression fracture of his L2 vertebrae Patient complaining of midline lumbar pain, tender to palpation, worse with movement, bending, twisting Denies radiation of the pain down either lower extremity. Denies numbness, weakness, tingling of either upper or lower extremity Pain is improved with sitting with lumbar support. He is unable to wear back brace secondary to ostomy bag Currently taking muscle relaxer, Celebrex, gabapentin and Percocet with minimal improvement Unable to tolerate PT secondary to his pain Denies red flag symptoms including new loss of bowel, bladder or saddle anesthesia Pain today is rated as a 9/10, constant. Worse in the morning and late afternoon. In terms of muscle damage condition is described as sharp, shooting, stabbing, pulling, aching, throbbing Pain is negatively impacting patient's enjoyment of life, general activity, ability to perform activities of daily living Denies implantable devices, pacemaker or defibrillator Denies current use of anticoagulants Denies current use of nicotine, tobacco, alcohol or illicit substances [facility] Medical History L2 vertebral fracture CKD (chronic kidney disease) stage 3, GFR 30-59 ml/min Hemophilia A Dyspnea on exertion Weakness Atrial flutter with rapid ventricular response LACY (acute kidney injury) Atrial fibrillation with rapid ventricular response Back pain Bilateral kidney stones Ileostomy in place Lymphangitis Edema of lower extremity Parastomal hernia Obesity (BMI 30-39.9) Nocturnal hypoxemia Restrictive lung disease Essential hypertension Hemophilia Loja cyst Renal stones History of cataract BPH (benign prostatic hyperplasia) Gout Crohn's disease Peripheral vascular disease Thrombocytopenia History of hepatitis C Cholelithiasis Osteopenia Surgical History S/P colectomy Status post ablation of incompetent vein using laser (01/13/23) H/O tooth extraction History of appendectomy History of urethral stent History of cataract surgery H/O wrist surgery Family History Father Prostate cancer Mother Diabetes Maternal Grandfather Factor VIII deficiency hemophilia Social History Household Members: Spouse Household Members Other:: 1 Housing: House Are you a primary career development coordinator/teacher to a significant other at home: No Do you presently have visiting nurse or other home services: No Alcohol intake: current Alcohol intake frequency: does not drink Alcohol type: beer Comment: no camera space available. Pt remains calm and cooperative, not impulsive Patient Tobacco Use Status: Never used Tobacco Tobacco use type: Cigarette e-Cigarette/Vaping Use: Never Used Second Hand Smoke Exposure: No service: No Current occupational status: retired Cognitive needs: No Hearing needs: No Vision needs: Yes Review of Systems Const All systems reviewed & are unremarkable except as noted in HPI and below Physical Exam Vital Signs: Last Vital Signs Pulse 101 H 11/22/24 10:43 BP 133/69 11/22/24 10:43 Pulse Ox 97 11/22/24 10:43 Oxygen Delivery Method Room Air 11/22/24 10:43 BMI result Body Mass Index 28.5 General: awake, alert, oriented. Answers questions appropriately. Fully engaged in examination. Skin: warm, dry, intact HEENT: Normocephalic. Hearing intact. Cardiac: External chest normal in appearance. Respiratory: No cough, audible wheezing or stridor. Abdomen: without gross distension. MS: No obvious swelling or deformities. Able to stand on bilateral tiptoes and bilateral heels.? Able to transition from sit to stand with push-off assistance using his arms Ambulates with bilaterally normal heel strike and toe off Tenderness over midline lumbar vertebrae and lumbar paraspinal muscles at L2 Nontender over bilateral PSIS Valsalva positive SLR negative bilaterally Neurological: Oriented to person, place, time and situation. Thought process intact. No gait abnormalities appreciated. Psychiatric: Appropriate mood and affect. Good judgment and insight. Results Reviewed Results Reviewed: 11/04/2024 x-ray lumbar spine FINDINGS: Comminuted fracture deformity representing 90% volume loss, L2 vertebra. Wedge-shaped compression deformity likely old at T12 resulting in kyphotic deformity. Grade 1 retrolisthesis at L2-3 in neutral position which persists during flexion and extension position. Osteopenia versus osteoporosis. Multilevel marginal osteophyte formation and endplate sclerosis with decreased intervertebral disc height. Vascular complications, aorta. IMPRESSION: Compression fracture deformity/burst fracture L2 similar since prior exam. Stable grade 1 retrolisthesis L2-3 without instability. Assessment & Plan Assessment & Plan (1) L2 vertebral fracture: Code(s): S32.029A - Unspecified fracture of second lumbar vertebra, initial encounter for closed fracture Category: Medical (2) Chronic pain syndrome: Code(s): G89.4 - Chronic pain syndrome Category: Medical Plan Dirk is a very pleasant 74-year-old male who presented to the office today for evaluation and management of his chronic lower back pain He is suffering with L2 compression fracture, determined nonsurgical by neuro spine. We discussed at length options for treatment including intrathecal drug delivery device, trial and implant. Informational pamphlets provided. He is aware that this would require mental health clearance for implantable devices, he was given the contact information for [facility]. Once mental health clearance is received we will schedule for fluoroscopy guided diagnostic intrathecal drug delivery device trial. He is aware that all opioid medications would need to be held for 24 hours prior to the trial and 60 days prior to the implant. Given patient's diagnosis and risk for pelvic organ dysfunction trial with bupivacaine would not be advisable. All questions and concerns have been answered and patient agrees with the plan. Follow up after injections and sooner if needed. Coding Level of Care Code New Pt Level 4 (50025) Complex EM visit Add On G2211 Diagnoses L2 vertebral fracture S32.029A Chronic pain syndrome G89.4
[2024-11-22 10:43] VITALS: BP 133/69; PULSE 101; O2SAT 97; BMI 28.5
--- OUTSIDE RECORDS SUMMARY | 2024-11-22 11:27 | XMS_ITS | Patient Health Record ---
Author Organization [facility] Address [address] [place] [address] Care Team Providers Care Cinder Man Name Role Phone Po Jennifer SHOEMAKER Primary Care Provider Rowdy Kelley [phone] ALLERGIES No Known Allergies REASON FOR REFERRAL [...] status (Z93.2) Active confirmed Ileostomy pre sent ([id number]) Problem Chronic hepatitis C without hepatic coma (B18.2) Active confirmed [id number] Problem Abnormal liver ultrasound (R93.2) Active confirmed [id number] Problem History of hepatitis C (Z86.19) Active confirmed [id number] Problem Liver fibrosis (K74.00) Active confirmed 14770837 PLAN OF TREATMENT Pending Test Test Name [...] Insured Coverage Start Date Coverage End Date [facility] [address] [place], [place] [id number] HALLIE JONES Self - patient is the [...] is aware of this finding hemophilia Denies [place],DM,CVA,Lung disease,renal dise ase Kidney stones he had [...]
== END 2024-11-22 11:19 | disposition home or self-care (01) ==
PROVIDERS: PCP Internal Medicine; Visit Provider Registered Nurse Emergency
DX: S32.029A Unspecified fracture of second lumbar vertebra, initial encounter for closed fracture (principal); G89.4 Chronic pain syndrome
CPT/HCPCS: 99204; G2211

== ENCOUNTER → 2024-11-22 10:32 | Outpatient (BNVA) | payer MEDICARE, BC, SELFPAY | PROVIDERS: PCP Internal Medicine; Visit Provider Registered Nurse Emergency | DX: S32.029A Unspecified fracture of second lumbar vertebra, initial encounter for closed fracture (principal); G89.4 Chronic pain syndrome | CPT/HCPCS: 99202 ==

== ENCOUNTER 2024-12-03 08:10 | Outpatient (REF) | payer MEDICARE, BC, SELFPAY ==
--- OUTSIDE RECORDS SUMMARY | 2024-12-03 08:30 | XMS_ITS | Patient Health Record ---
Author Organization [facility] Address [address] [place] [address] Care Team Providers Care Photographic Plate Maker Name Role Phone Po Jennifer SHOEMAKER Primary Care Provider Rowdy Kelley [phone] ALLERGIES No Known Allergies REASON FOR REFERRAL [...] status (Z93.2) Active confirmed Ileostomy pre sent ([id number]) Problem Chronic hepatitis C without hepatic coma (B18.2) Active confirmed [id number] Problem Abnormal liver ultrasound (R93.2) Active confirmed [id number] Problem History of hepatitis C (Z86.19) Active confirmed 89973022494828 Problem Liver fibrosis (K74.00) Active confirmed 25715004 PLAN OF TREATMENT Pending Test Test Name Order Date BUN 12/09/2021 LIVER PROFILE 02/11/2015 LIVER PROFILE 09/06/2015 LIVER PROFILE 07/15/2015 LIVER PROFILE 03/21/2015 CBC w DIFF 02/11/2015 CBC w DIFF 09/06/2015 CBC w DIFF 03/21/2015 ALPHA-FETOPROTEIN,TUMOR MARKER 12/06/201 5 ALPHA-FETOPROTEIN,TUMOR MARKER 2 HEPATITIS C VIRAL LOAD 03/21/2015 HEPATITIS C VIRAL LOAD 02/11/2015 HEPATITIS C VIRAL LOAD 07/15/2015 HEPATITIS C VIRAL LOAD 09/06/2015 HEPATITIS C VIRAL LOAD 10/27/2021 MRI ABD W&WO CONTRAST 12/09/2021 US ABD 11/06/2021 Creatinine 12/09/2021 Insurance Providers Payer Name Payer Address Payer Phone Subscriber Number Group Number Insured Name Patient Relationship to Insured Coverage Start Date Coverage End Date [facility] [address] [place], [place] [id number] HALLIE JONES Self - patient is the [...] is aware of this finding hemophilia Denies [place],DM,CVA,Lung disease,renal dise ase Kidney stones he had [...]
[2024-12-03 09:44] LABS: Anion Gap 10 (12-20); Blood Urea Nitrogen 25 mg/dL (9-16); Calcium 9.5 mg/dL (8.4-10.2); Carbon Dioxide 21 mmol/L (22-29); Chloride 117 mmol/L (96-108); Cholesterol 123 mg/dL (<200); Estimated Glomerular Filt Rate 47; Glucose Random 80 mg/dL (60-115); HDL Cholesterol 65 mg/dL (>40); LDL Cholesterol Calculated 44 mg/dL (<100); Potassium 4.3 mmol/L (3.3-5.1); Sodium 144 mmol/L (135-145); Triglycerides 74 mg/dL (<150)
== END 2024-12-03 08:11 | disposition home or self-care (01) ==
LOC: HO.LAB 08:10
PROVIDERS: PCP Internal Medicine
DX: N18.30 Chronic kidney disease, stage 3 unspecified (principal); E78.00 Pure hypercholesterolemia, unspecified
CPT/HCPCS: 36415; 80048; 80061

== ENCOUNTER 2024-12-11 09:53 | Outpatient (AMB) | payer MEDICARE, BC, SELFPAY ==
--- NOTE | 2024-12-11 09:58 | A.OFFPC_ITS ---
Vital Signs 12/11/24 10:00 Height 5 ft 8 in Weight 215 lb 13.321 oz BMI 32.8 BP 110/82 Blood Pressure Location Lt brachial Position Sitting Pulse 89 Pulse Source Pulse Oximeter Pulse Oximetry (%) 98 Oxygen Delivery Method Room Air Intake Visit Reasons: f/u lumbar fx Resident Care Aid Required: No Accompanied by: Self / Same As Patient Allergies No Known Allergies Allergy (Verified 12/11/24 10:10) Medication List - Last Reconciled 12/11/24 by Sharda Armenta PA-C aspirin 81 mg PO DAILY calcium carbonate-vitamin D3 600 mg-5 mcg (200 unit) (Calcium 600 + D(3)) 1 tab PO DAILY celecoxib (Celebrex) 100 mg PO BID cyanocobalamin (vitamin B-12) 1,000 mcg PO DAILY dronedarone (Multaq) 400 mg PO BID finasteride 5 mg PO DAILY 90 days folic acid 1 mg PO DAILY gabapentin 300 mg PO DAILY midodrine 2.5 mg PO TID nystatin 1 appl topical DAILY PRN oxycodone-acetaminophen 5-325 mg (Percocet) 1 tab PO BID PRN potassium citrate ER 20 mEq (2 x 10 mEq (1,080 mg)) PO DAILY@1700 90 days pyridoxine (vitamin B6) 100 mg PO DAILY 90 days sertraline 25 mg PO DAILY simvastatin 5 mg PO BEDTIME tizanidine 4 mg PO BEDTIME PRN walker As directed Tobacco use date assessed: 12/11/24 Fall risk assessment: 2 + Falls in past year Last assessed Fall Risk: 12/11/24 Dental Screening Dental Screen Date: 12/11/24 Did you have a dental visit in the last 12 months?: Yes Did you have a dental problem in the last 6 months where you did not have access to dental care?: No Was dental information given to patient?: Patient has dentist HPI f/u lumbar fx HPI Details 74 year old obese male with past history of AFib, hypercholesterolemia, hypertension last seen by Dr. Parikh 11/2024 coming in for follow up.? In review of the notes, patient was seen by pain management 11/22/2024 awaiting mental health clearance for fluoroscopy guided diagnostic intrathecal drug delivery device trial. Patient tells us today he recently completed his mental health clearance for pain management and we will likely be hearing from them soon to schedule the procedure. The procedure will be completed in 2 parts 2nd is requiring anesthesia will likely need a preop. The Celebrex is not helping with his back pain and he uses the muscle relaxer and Percocet as needed for pain with mild relief. He has no other concerns today. [facility] Medical History L2 vertebral fracture CKD (chronic kidney disease) stage 3, GFR 30-59 ml/min Hemophilia A Dyspnea on exertion Weakness Atrial flutter with rapid ventricular response LACY (acute kidney injury) Atrial fibrillation with rapid ventricular response Back pain Bilateral kidney stones Ileostomy in place Lymphangitis Edema of lower extremity Parastomal hernia Obesity (BMI 30-39.9) Nocturnal hypoxemia Restrictive lung disease Essential hypertension Hemophilia Loja cyst Renal stones History of cataract BPH (benign prostatic hyperplasia) Gout Crohn's disease Peripheral vascular disease Thrombocytopenia History of hepatitis C Cholelithiasis Osteopenia Surgical History S/P colectomy Status post ablation of incompetent vein using laser (01/13/23) H/O tooth extraction History of appendectomy History of urethral stent History of cataract surgery H/O wrist surgery Family History Father Prostate cancer Mother Diabetes Maternal Grandfather Factor VIII deficiency hemophilia Social History Household Members: Spouse Household Members Other:: 1 Housing: House Are you a primary long term care pharmacist to a significant other at home: No Do you presently have visiting nurse or other home services: No Alcohol intake: current Alcohol intake frequency: does not drink Alcohol type: beer Comment: no camera space available. Pt remains calm and cooperative, not impulsive Patient Tobacco Use Status: Never used Tobacco Tobacco use type: Cigarette e-Cigarette/Vaping Use: Never Used Second Hand Smoke Exposure: No service: No Current occupational status: retired Cognitive needs: No Hearing needs: No Vision needs: Yes Questionnaire PHQ-9 Over the last 2 weeks, how often have you been bothered by any of the following problems? 1. Little interest or pleasure in doing things: not at all 2. Feeling down, depressed, or hopeless: not at all 3. Trouble falling or staying asleep, or sleeping too much: not at all 4. Feeling tired or having little energy: not at all 5. Poor appetite or overeating: not at all 6. Feeling bad about yourself - or that you are a failure or have let yourself or your family down: not at all 7. Trouble concentrating on things, such as reading the newspaper or watching television: not at all 8. Moving or speaking so slowly that other people could have noticed. Or the opposite - being so fidgety or restless that you have been moving around a lot more than usual: not at all 9. Thoughts that you would be better off or of hurting yourself in some way: not at all Total score: 0 Depression Screening Interpretation: Negative Depression Screening Done: Yes Source: Developed by Drs. Rowdy Lugo, Georgie Braun, Willie Stevenson and colleagues, with an educational trinidad from [employer]. Thrive Questionnaire Date Thrive assessed: 12/11/24 I am a: Patient What is your living situation today?: I have a steady place to live Within the past 12 months, did the food you bought not last and you didn't have the money to get more?: Never true Within the past 12 months, did you worry whether your food would run out before you got money to buy more?: Never true Do you have trouble paying for medicines?: No Do you have trouble getting transportation to medical appointments?: No Do you have trouble paying your heating and electricity bill?: No Do you have trouble taking care of your child, family member or friend?: No Do you have trouble with day-to-day activities such as bathing, preparing meals, shopping, managing finances, etc.?: No Are you currently unemployed and looking for a job?: No Are you interested in more education?: No Please select the resources that you would like help with: None Currently or been in a relationship where the following occur: No concerns reported THRIVE Score: 0 AUDIT C Alcohol Use Questionnaire (AUDIT-C) 1. How often do you have a drink containing alcohol?: Never 3. How often do you have six or more drinks on one occasion?: Never Total Score: 0 MARISOL-7 AMB Questionnaire MARISOL-7 Date MARISOL - 7 assessed: 12/11/24 Feeling nervous, anxious, or on edge: 0 = Not at all Not being able to stop or control worryin = Not at all Worrying too much about different things: 0 = Not at all Trouble relaxin = Not at all Being so restless that it is hard to sit still: 0 = Not at all Becoming easily annoyed or irritable: 0 = Not at all Feeling afraid as if something awful might happen: 0 = Not at all Total MARISOL-7 score (0-4 normal; 5-9 mild; 10-14 moderate; 15-21 severe): 0 Source: Developed by Drs. Rowdy Lugo, Georgie Braun, Willie Stevenson and colleagues, with an educational trinidad from [employer]. Review of Systems Const Denies body aches, Denies chills, Denies fever(s), Denies headache(s) and Denies poor appetite Eyes Reports no additional complaints ENT Denies dizziness and Denies headache(s) Card Denies chest pain, Denies lightheadedness and Denies dyspnea Resp Denies dyspnea GI Reports no additional complaints Reports no additional complaints Musc Reports abnormal gait and Reports back pain Skin/Breast Reports system reviewed and no additional complaints, except as documented Neuro Reports abnormal gait, Denies dizziness and Denies headache(s) Psych Reports no additional complaints Physical exam (Primary Care) Vital Signs: Last Vital Signs Pulse 89 12/11/24 10:00 BP 110/82 12/11/24 10:00 Pulse Ox 98 12/11/24 10:00 Oxygen Delivery Method Room Air 12/11/24 10:00 BMI result Body Mass Index 32.8 Tobacco/Smoking Status: Tobacco use Status Tobacco use date assessed 12/11/24 12/11/24 10:08 Patient Tobacco Use Status Never used Tobacco 12/11/24 10:08 Tobacco use type Cigarette 12/11/24 10:08 e-Cigarette/Vaping Use Never Used 12/11/24 10:08 PHQ-9: PHQ-9 Score PHQ-9: Total score 0 12/11/24 10:59 Depression Screening Interpretation: Negative Thrive Assessment: Date of Thrive Assessment Date Thrive assessed 12/11/24 12/11/24 10:08 Currently or been in a relationship where the following occur: No concerns reported Const General: cooperative, healthy appearing, comfortable and no acute distress Orientation/consciousness: patient oriented x3 HENMT Head: Yes normocephalic Ears: hearing grossly normal bilaterally General nose exam: Normal external nose present Eyes General: appearance normal, both eyes and all related structures Conjunctivae: conjunctivae normal Neck Neck: Yes full ROM and Yes no lymphadenopathy Resp Effort & Inspection: normal respiratory effort Auscultation: clear to auscultation bilaterally, no crackles, no rales, no rhonchi and no wheezes Cardio Rate: regular rate Rhythm: regular rhythm Skin General skin exam: no rashes or lesions noted Neuro General: patient oriented x3 Gait exam (Neuro): Normal gait present Extrem General: Yes normal to inspection, Yes full ROM and No edema Psych Affect: normal affect Attitude: cooperative Insight: Good insight present (Psych) Judgement: Good judgement present (Psych) Coding Level of Care Code Est Pt Level 3 (74061) Diagnoses L2 vertebral fracture S32.029A Chronic pain syndrome G89.4 Obesity (BMI 30-39.9) E66.9 Essential hypertension I10 Assessment & Plan Assessment & Plan (1) L2 vertebral fracture: Code(s): S32.029A - Unspecified fracture of second lumbar vertebra, initial encounter for closed fracture Category: Medical Plan: Patient is currently following with pain management planned to have Fluoroscopy guided diagnostic intrathecal drug delivery device trial. He recently underwent the mental health clearance that was needed prior to this procedure and we will reach out to the office to continue scheduling. Continue to use pain medication as needed. (2) Chronic pain syndrome: Code(s): G89.4 - Chronic pain syndrome Category: Medical Plan: Currently following with pain management see plan above (3) Obesity (BMI 30-39.9): Comment: PATIENT IS MODERATELY OBESE THERE HAS BEEN NO RECENT INCREASE IN HIS WEIGHT. I MADE HIM AWARE THAT HE SHOULD LOSE ABOUT 10 LB OF WEIGHT Code(s): E66.9 - Obesity, unspecified Category: Medical Plan: Healthy diet and regular exercise is encouraged. (4) Essential hypertension: Code(s): I10 - Essential (primary) hypertension Category: Medical Plan: Continue on current blood pressure medication. Avoid salt intake and encourage healthy diet and regular exercise. Plan This note was constructed using voice recognition software. While every effort has been made to ensure accuracy and advocacy director, still areas may have been included sometimes these areas may affect the content or meeting of the given symptoms. Total time spent caring for the patient today was 20 minutes. This includes time spent before the visit reviewing the chart, time spent during the visit, and time spent after the visit and documentation. Medications: Refilled tizanidine 4 mg PO BEDTIME PRN 30 caps 0RF muscle spasticity
[2024-12-11 10:00] VITALS: BP 110/82; PULSE 89; O2SAT 98; BMI 32.8
--- OUTSIDE RECORDS SUMMARY | 2024-12-11 11:03 | XMS_ITS | Patient Health Record ---
Author Organization [facility] Address [address] [place] [address] Care Team Providers Care Hoe Runner Name Role Phone Jennifer Parikh MD Primary Care Provider Rowdy Kelley [phone] Allergies No Known Allergies Reason For Referral No Information Medications Medication SIG (Take, Route, Frequency, Duration) Notes Start Date End Date Status Metoprolol Succinate ER 25 MG TAKE 1 TABLET BY MOUTH DAILY Oral for 90 Active Potassium Citrate ER 10 MEQ (1080 MG) Oral for 90 Active Vitamin B 12 Active Calcium + D 500-1000-40 MG-UNT-MCG Orally Twice a day Active Milk Thistle Active Vitamin B6 Active Immunizations Vaccine Route Administration Date Status Comme nts Influenza Unknown 07/02/2021 Administered Problems Problem Type SNOMED Code ICD Code Onset Dates Problem Status W/U Status Risk Notes Problem Ileostomy present (133716999) 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) Active confirmed Problem 404060411 Chronic hepatitis C without hepatic coma (B18.2) Active confirmed Problem 09144406871964105 Abnormal liver ultrasound (R93.2) Active confirmed Problem 95099186029480 History of hepatitis C (Z86.19) Active confirmed Problem 60441594 Liver fibrosis (K74.00) Active confirmed Plan Of Treatment Pending Test Test Name Order Date BUN 12/09/2021 LIVER PROFILE 03/21/2015 LIVER PROFILE 02/11/2015 LIVER PROFILE 07/15/2015 LIVER PROFILE 09/06/2015 CBC w DIFF 09/06/2015 CBC w DIFF 03/21/2015 CBC w DIFF 02/11/2015 ALPHA-FETOPROTEIN,TUMOR MARKER 2 ALPHA-FETOPROTEIN,TUMOR MARKER 5 HEPATITIS C VIRAL LOAD 02/11/2015 HEPATITIS C VIRAL LOAD 10/27/2021 HEPATITIS C VIRAL LOAD 09/06/2015 HEPATITIS C VIRAL LOAD 03/21/2015 HEPATITIS C VIRAL LOAD 07/15/2015 MRI ABD W&WO CONTRAST 12/09/2021 US ABD 11/06/2021 Creatinine 12/09/2021 Insurance Providers Payer Name Payer Address Payer Phone Subscriber Number Group Number Insured Name Patient Relationship to Insured Coverage Start Date Coverage End Date [facility] [address] [place], [place] [id number] [phone] [id number] HALLIE JONES Self - patient is the insured Medical (General) History Medical History History ICD Code Crohn's disease-s/p [...] is aware of this finding hemophilia Denies [place],DM,CVA,Lung disease,renal dise ase Kidney stones he had [...] Kidney stones removed 2019 Cataract surgery bilateral 2019 May be having a parastomal hernia repair with Dr. Nazario in 2021
== END 2024-12-11 10:26 | disposition home or self-care (01) ==
LOC: HO.HMCH 09:53
PROVIDERS: PCP Internal Medicine
DX: Z00.00 Encounter for general adult medical examination without abnormal findings (principal); E78.00 Pure hypercholesterolemia, unspecified; E66.9 Obesity, unspecified; Z68.32 Body mass index [BMI] 32.0-32.9, adult; K21.9 Gastro-esophageal reflux disease without esophagitis; I10 Essential (primary) hypertension; R73.01 Impaired fasting glucose; Z12.11 Encounter for screening for malignant neoplasm of colon

== ENCOUNTER → 2024-12-11 09:53 | Outpatient (BNVA) | payer MEDICARE, BC, SELFPAY | PROVIDERS: PCP Internal Medicine | DX: S32.029D Unspecified fracture of second lumbar vertebra, subsequent encounter for fracture with routine healing (principal); G89.4 Chronic pain syndrome; E66.9 Obesity, unspecified; I10 Essential (primary) hypertension | CPT/HCPCS: 96127; 99212; 99396; 99397 ==

== ENCOUNTER 2025-02-13 09:39 | Outpatient (AMB) | payer MEDICARE, BC, SELFPAY ==
--- NOTE | 2025-02-13 09:45 | AM.OFFVISNUR ---
Intake Visit Reasons: EKG Allergies No Known Allergies Allergy (Verified 12/11/24 10:10) Nursing Note pt is here for nurse visit with ekg pt is on dronedarone 400 mg PO BID pt has no complaints ekg reviewed by Dr CAPONE Office Procedures EKG [id number]-[id number], Complete Coding CPT Codes EKG - CPT: 36112-Jbzfdacfejpnjzsni, Complete ([id number])
--- OUTSIDE RECORDS SUMMARY | 2025-02-13 10:31 | XMS_ITS | Patient Health Record ---
Author Organization [facility] Address [address] [place] [address] Care Team Providers Care Wool Scourer Name Role Phone Jennifer Parikh MD Primary Care Provider Rowdy Kelley [phone] Allergies No Known Allergies Reason For Referral [...] W/U Status Risk Notes Problem Ileostomy present (313191022) 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) Active confirmed Problem 027027527 Chronic hepatitis C without hepatic coma (B18.2) Active confirmed Problem [id number] Abnormal liver ultrasound (R93.2) Active confirmed Problem 08804023225107 History of hepatitis C (Z86.19) Active confirmed Problem 27305278 Liver fibrosis (K74.00) Active confirmed Plan Of Treatment Pending Test Test Name Order Date BUN 12/09/2021 LIVER PROFILE 02/11/2015 LIVER PROFILE 07/15/2015 LIVER PROFILE 09/06/2015 LIVER PROFILE 03/21/2015 CBC w DIFF 02/11/2015 CBC w DIFF 09/06/2015 CBC w DIFF 03/21/2015 ALPHA-FETOPROTEIN,TUMOR MARKER 2 ALPHA-FETOPROTEIN,TUMOR MARKER 5 HEPATITIS C VIRAL LOAD 09/06/2015 HEPATITIS C VIRAL LOAD 03/21/2015 HEPATITIS C VIRAL LOAD 07/15/2015 HEPATITIS C VIRAL LOAD 02/11/2015 HEPATITIS C VIRAL LOAD 10/27/2021 MRI ABD W&WO CONTRAST 12/09/2021 US ABD 11/06/2021 Creatinine 12/09/2021 Insurance Providers Payer Name Payer Address Payer Phone Subscriber Number Group Number Insured Name Patient Relationship to Insured Coverage Start Date Coverage End Date [facility] [address] [place], [place] [id number] KIZZYHALLIE [place] Self - patient is the insured Medical [...] is aware of this finding hemophilia Denies [place],DM,CVA,Lung disease,renal dise ase Kidney stones he had [...]
== END 2025-02-13 09:57 | disposition home or self-care (01) ==
LOC: HO.HCS 09:39
PROVIDERS: PCP Internal Medicine; Visit Provider Internal Medicine
DX: I48.91 Unspecified atrial fibrillation (principal)
CPT/HCPCS: 93010

== ENCOUNTER → 2025-02-13 09:39 | Outpatient (BNVA) | payer MEDICARE, BC, SELFPAY | PROVIDERS: PCP Internal Medicine; Visit Provider Internal Medicine | DX: Z79.899 Other long term (current) drug therapy (principal) | CPT/HCPCS: 93005 ==

== ENCOUNTER 2025-02-18 06:06 | Outpatient (REF) | payer MEDICARE, BC, SELFPAY ==
--- OUTSIDE RECORDS SUMMARY | 2025-02-18 06:09 | XMS_ITS | Patient Health Record ---
Author Organization [facility] Address [address] [place] [address] Care Team Providers Care Fire Hazard Inspector Name Role Phone Jennifer Parikh MD Primary Care Provider Rowdy Kelley [phone] Allergies No Known Allergies Reason For Referral [...] W/U Status Risk Notes Problem Ileostomy present (527992954) 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) Active confirmed Problem 270760635 Chronic hepatitis C without hepatic coma (B18.2) Active confirmed Problem 50329861150989089 Abnormal liver ultrasound (R93.2) Active confirmed Problem 00768645554089 History of hepatitis C (Z86.19) Active confirmed Problem 23013062 Liver fibrosis (K74.00) Active confirmed Plan Of [...] Insured Coverage Start Date Coverage End Date [facility] [address] [place], [place] [id number] [phone] [id number] KIZZYHALLIE [place] Self - patient is the [...] is aware of this finding hemophilia Denies [place],DM,CVA,Lung disease,renal dise ase Kidney stones he had [...]
== END 2025-02-18 06:07 | disposition home or self-care (01) ==
LOC: CF 06:06
PROVIDERS: Visit Provider Anesthesiology
DX: Z13.89 Encounter for screening for other disorder (principal)

== ENCOUNTER 2025-02-25 08:28 | Outpatient (REF) | payer MEDICARE, BC, SELFPAY ==
--- NOTE | ~2025-02-25 | US_ITS ---
CLINICAL HISTORY: N20.0 - Calculus of kidney Retroperitoneal ultrasound Comparison: US/SR - US RENAL BI - 12/20/23 08:06 EDT US/SR - US RENAL BI - 06/12/23 09:04 EDT Findings: The kidneys are normal in echotexture bilaterally. Renal sinus lipomatosis bilaterally. No hydronephrosis. Right nephrolithiasis measures up to 1.3 cm in the upper pole. The right kidney is normal in size, measuring 11.0cm in length. The left kidney is normal in size, measuring 12.7cm in length. Cyst with a thin internal septation measuring 2.3 x 2.8 x 2.7 cm with peripheral calcification, Previously measuring 2.8 x 2.8 x 2.2 cm. Impression: No acute findings. Right nephrolithiasis. This document has been electronically signed by: Yamileth Jeff MD on 02/25/2025 15:26:48
--- OUTSIDE RECORDS SUMMARY | 2025-02-25 08:47 | XMS_ITS | Patient Health Record ---
Author Organization [facility] Address [address] [place] [address] Care Team Providers Care Side Panel Hanger Name Role Phone Jennifer Parikh MD Primary Care Provider Rowdy Kelley [phone] Allergies No Known Allergies Reason For Referral [...] W/U Status Risk Notes Problem Ileostomy present (993367350) 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) Active confirmed Problem 830138426 Chronic hepatitis C without hepatic coma (B18.2) Active confirmed Problem 01224270805512853 Abnormal liver ultrasound (R93.2) Active confirmed Problem 77591892109179 History of hepatitis C (Z86.19) Active confirmed Problem 38868369 Liver fibrosis (K74.00) Active confirmed Plan Of Treatment Pending Test Test Name Order Date BUN 12/09/2021 LIVER PROFILE 02/11/2015 LIVER PROFILE 07/15/2015 LIVER PROFILE 09/06/2015 LIVER PROFILE 03/21/2015 CBC w DIFF 03/21/2015 CBC w DIFF 02/11/2015 CBC w DIFF 09/06/2015 ALPHA-FETOPROTEIN,TUMOR MARKER 2 ALPHA-FETOPROTEIN,TUMOR MARKER 5 HEPATITIS [...] Insured Coverage Start Date Coverage End Date [facility] [address] [place], [place] [id number] KIZZYHALLIE [place] Self - patient is the [...] is aware of this finding hemophilia Denies [place],DM,CVA,Lung disease,renal dise ase Kidney stones he had [...]
== END 2025-02-25 08:29 | disposition home or self-care (01) ==
LOC: HO.HMGCX 08:28
PROVIDERS: PCP Internal Medicine; Visit Provider Urology
DX: N20.0 Calculus of kidney (principal)
CPT/HCPCS: 76775

== ENCOUNTER → 2025-02-25 08:34 | Outpatient (BNV) | payer MEDICARE, BC, SELFPAY | PROVIDERS: PCP Internal Medicine; Visit Provider Radiology Diagnostic Radiology | DX: N20.0 Calculus of kidney (principal) | CPT/HCPCS: 76775 ==

== ENCOUNTER 2025-03-04 08:58 | Outpatient (AMB) | payer MEDICARE, BC, SELFPAY ==
--- NOTE | 2025-03-04 08:58 | MHC.OFFVIS ---
Intake Visit Reasons: 6m/US Intake Note: Patient is present for 6M/US Urology Medication:POTASSIUM CITRATE,FINASTERIDE,VITAMIN B12,VITAMIN B6 Antibiotic Allergy:NONE Blood Thinner:ASPIRIN Director Of Vital Statistics Required: No Allergies No Known Allergies Allergy (Verified 03/04/25 08:59) HPI Comments Details: Dirk is very pleasant male. He is a patient of Dr. Parikh. He seen for the following urologic conditions - renal stones - lower urinary tract symptoms Telemedicine Evaluation 15 min Consultation [address] [place] [facility] Six-month follow-up Lower urinary tract symptoms currently managed with finasteride alone Nephrolithiasis managed with potassium citrate - dose decreased to 2 tabs daily with Nephrology Recent imaging shows stone on right but other stones seemed to be resolved Last PSA 12/22 1.6 - and he is repeating every 2 years 12 month follow-up renal imaging and PSA Lower urinary tract symptoms Initial symptom presentation - Nocturia x3, Weakness of stream, Progressive Prior medications include tamsulosin, terazosin Current medications finasteride alone. Was taken off alpha-arya after fall Nephrolithiasis/Urolithiasis: Secondary to Crohn's Remain on potassium citrate with vitamin B6 They are here for further evaluation of nephrolithiasis. Urolithiasis was diagnosed [facility] 03/10/19 with right flank pain. The patient previously had kidney stones whose composition w 10/21 uric acid 80% CaOx 20%. Laboratory investigations include 11/21 , Hyperuricemia, borderline high calcium. Prior treatment(s) include Typically has had stones every 15-20 years starting in early 1970s 10/21 , right, ureteroscopy - distal. Prior imaging includes 03/20 , a CT (computed tomography) scan of the abdomen/pelvis (stone protocol) - multiple 2 mm stones on right side, distal right ureteric stone with hydroureteronephrosis, left 2-3 cm cyst 04/19 , a renal ultrasound, showing no evidence of stones - left 2-3 cm cyst, prostate 70 g 09/19 , a CT (computed tomography) scan of the abdomen/pelvis (stone protocol) - 5mm distal right stone with mild hydro 10/21 multiple right 5mm stones on US - 09/20 multiple right stones on ultrasound - 04/21 renal u/s minimal stone on right, left clear - 11/23 renal ultrasound no evidence of renal stones, hepatic steatosis - 05/23 renal ultrasound 9 mm right, 4 mm left, cyst on left kidney - 09/23 CT scan with multiple stones bilateral - 12/23 renal ultrasound shows resolution of stones on left side - 08/25 CT scan small stone left side 2 mm Current therapeutic plan - continue with fluid intake [facility] Medical History L2 vertebral fracture CKD (chronic kidney disease) stage 3, GFR 30-59 ml/min Hemophilia A Dyspnea on exertion Weakness Atrial flutter with rapid ventricular response LACY (acute kidney injury) Atrial fibrillation with rapid ventricular response Back pain Bilateral kidney stones Ileostomy in place Lymphangitis Edema of lower extremity Parastomal hernia Obesity (BMI 30-39.9) Nocturnal hypoxemia Restrictive lung disease Essential hypertension Hemophilia Loja cyst Renal stones History of cataract BPH (benign prostatic hyperplasia) Gout Crohn's disease Peripheral vascular disease Thrombocytopenia History of hepatitis C Cholelithiasis Osteopenia Surgical History S/P colectomy Status post ablation of incompetent vein using laser (01/13/23) H/O tooth extraction History of appendectomy History of urethral stent History of cataract surgery H/O wrist surgery Family History Father Prostate cancer Mother Diabetes Maternal Grandfather Factor VIII deficiency hemophilia Social History Household Members: Spouse Household Members Other:: 1 Housing: House Are you a primary managed care coordinator to a significant other at home: No Do you presently have visiting nurse or other home services: No Alcohol intake: current Alcohol intake frequency: does not drink Alcohol type: beer Comment: no camera space available. Pt remains calm and cooperative, not impulsive Patient Tobacco Use Status: Never used Tobacco Tobacco use type: Cigarette e-Cigarette/Vaping Use: Never Used Second Hand Smoke Exposure: No service: No Current occupational status: retired Cognitive needs: No Hearing needs: No Vision needs: Yes Review of Systems Const All systems reviewed & are unremarkable except as noted in HPI and below Reports no additional complaints Resp Reports no additional complaints GI Reports no additional complaints Reports as per HPI Musc Reports no additional complaints Physical Exam Telemedicine evaluation Appropriate responses Regular breathing rate and rhythm HEENT Head: Yes normal to inspection Ears: hearing grossly normal bilaterally Eyes General: appearance normal, both eyes and all related structures Neck Neck: Yes normal visual inspection Chest Chest palpation & inspection: normal inspection of the chest Resp Effort & Inspection: normal respiratory effort and able to speak in complete sentences Telehealth Telehealth Location of provider rendering services: practice address Location of patient: address on file Patient Identification confirmed using: Name, : Yes Telehealth method: voice only Patient verbally consented to treatment: Yes Patient verbally consented to billing insurance company: Yes Patient informed of any privacy concerns related to visit: Yes Assessment & Plan Assessment & Plan (1) BPH (benign prostatic hyperplasia): Code(s): N40.0 - Benign prostatic hyperplasia without lower urinary tract symptoms Category: Medical (2) Renal stones: Comment: Right renal calculi December 2018 uric acid stone October 2019 stable 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 While every effort has been made to ensure accuracy chocolate finisher operator errors may have been included. Imaging studies, laboratory and physical exam results were discussed and reviewed in detail. No major barriers to patient understanding were identified. An opportunity to ask questions regarding the treatment plan was provided. All questions were answered. The patient expressed understanding and agreement with the above treatment plan. The patient is aware they should contact our office by phone for worsening of their current condition or the appearance of new urologic symptoms. Compliance is encouraged with any medications and followup testing that is ordered. It is a privilege to participate in the urologic care of your patient. If you have any questions or concerns regarding treatment for the above conditions, or other urologic issues, please do not hesitate to contact me. The office telephone contact is [phone]. Sincerely, Dr Armani Rose MD, [facility] - Urology Compassionate Specialist Care for the Genitourinary System Coding Level of Care Code Tele Est Pt Level 3 (06848) Complex EM visit Add On G2211 Diagnoses BPH (benign prostatic hyperplasia) N40.0 Renal stones N20.0
--- OUTSIDE RECORDS SUMMARY | 2025-03-04 09:38 | XMS_ITS | Patient Health Record ---
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) Active confirmed Problem 220766705 Chronic hepatitis C without hepatic coma (B18.2) Active confirmed Problem 44252116313047049 Abnormal liver ultrasound (R93.2) Active confirmed Problem 37824867157602 History of hepatitis C (Z86.19) Active confirmed Problem 79425803 Liver fibrosis (K74.00) Active confirmed Plan Of Treatment Pending Test Test Name Order Date BUN 12/09/2021 LIVER PROFILE 02/11/2015 LIVER PROFILE 07/15/2015 LIVER PROFILE 09/06/2015 LIVER PROFILE 03/21/2015 CBC w DIFF 03/21/2015 CBC w DIFF 02/11/2015 CBC w DIFF 09/06/2015 ALPHA-FETOPROTEIN,TUMOR MARKER 2 ALPHA-FETOPROTEIN,TUMOR MARKER 12/06/201 5 HEPATITIS C VIRAL LOAD 09/06/2015 HEPATITIS C VIRAL LOAD 03/21/2015 HEPATITIS C VIRAL LOAD 07/15/2015 HEPATITIS C VIRAL LOAD 02/11/2015 HEPATITIS C VIRAL LOAD 10/27/2021 MRI ABD W&WO CONTRAST 12/09/2021 US ABD 11/06/2021 Creatinine 12/09/2021 Insurance Providers Payer Name Payer Address Payer Phone Subscriber Number Group Number Insured Name Patient Relationship to Insured Coverage Start Date Coverage End Date [facility] [address] [place], [place] [id number] [phone] [id number] [id number] HALLIE Self - patient is the insured Medical [...] is aware of this finding hemophilia Denies [place],DM,CVA,Lung disease,renal dise ase Kidney stones he had [...]
== END 2025-03-04 10:26 | disposition home or self-care (01) ==
LOC: HO.HUSH 08:58
PROVIDERS: PCP Internal Medicine; Visit Provider Urology
DX: N40.0 Benign prostatic hyperplasia without lower urinary tract symptoms (principal); N20.0 Calculus of kidney
CPT/HCPCS: 99213; G2211

== ENCOUNTER → 2025-03-04 08:58 | Outpatient (BNVA) | payer MEDICARE, BC, SELFPAY | PROVIDERS: PCP Internal Medicine; Visit Provider Urology | DX: Z13.89 Encounter for screening for other disorder (principal) ==

== ENCOUNTER → 2025-03-12 10:49 | Outpatient (BNV) | payer MEDICARE, BC, SELFPAY | PROVIDERS: PCP Internal Medicine; Visit Provider Internal Medicine | DX: D66 Hereditary factor VIII deficiency (principal) | CPT/HCPCS: 99215; G2211 ==

== ENCOUNTER 2025-03-28 10:12 | Outpatient (AMB) | payer MEDICARE, BC, SELFPAY ==
--- NOTE | 2025-03-28 10:29 | A.OFFPC_ITS ---
Vital Signs 03/28/25 10:32 Height 5 ft 8 in Weight 213 lb 8 oz BMI 32.5 BP 110/66 Blood Pressure Location Lt brachial Position Sitting Pulse 84 Pulse Source Pulse Oximeter Temp 97.3 F Temp Source Temporal Artery Scan Pulse Oximetry (%) 98 Oxygen Delivery Method Room Air Intake Visit Reasons: Pain Med Intake Note: Patient is here to follow up on Pain med. Web Applications Programmer Required: No General Office Associate: Present Accompanied by: Spouse Allergies No Known Allergies Allergy (Verified 03/28/25 10:31) Tobacco use date assessed: 03/28/25 Fall risk assessment: No Falls in past year Last assessed Fall Risk: 03/28/25 Dental Screening Dental Screen Date: 12/11/24 HPI Pain Med HPI Details PAtient was referred to [facility] but did receive a call from them that they are referring him to Other tertiary hospital. [facility] Medical History L2 vertebral fracture CKD (chronic kidney disease) stage 3, GFR 30-59 ml/min Hemophilia A Dyspnea on exertion Weakness Atrial flutter with rapid ventricular response LACY (acute kidney injury) Atrial fibrillation with rapid ventricular response Back pain Bilateral kidney stones Ileostomy in place Lymphangitis Edema of lower extremity Parastomal hernia Obesity (BMI 30-39.9) Nocturnal hypoxemia Restrictive lung disease Essential hypertension Hemophilia Loja cyst Renal stones History of cataract BPH (benign prostatic hyperplasia) Gout Crohn's disease Peripheral vascular disease Thrombocytopenia History of hepatitis C Cholelithiasis Osteopenia Surgical History S/P colectomy Status post ablation of incompetent vein using laser (01/13/23) H/O tooth extraction History of appendectomy History of urethral stent History of cataract surgery H/O wrist surgery Family History Father Prostate cancer Mother Diabetes Maternal Grandfather Factor VIII deficiency hemophilia Social History Household Members: Spouse Household Members Other:: 1 Housing: House Are you a primary director of home care hospice to a significant other at home: No Do you presently have visiting nurse or other home services: No Alcohol intake: current Alcohol intake frequency: does not drink Alcohol type: beer Comment: no camera space available. Pt remains calm and cooperative, not impulsive Patient Tobacco Use Status: Never used Tobacco Tobacco use type: Cigarette e-Cigarette/Vaping Use: Never Used Second Hand Smoke Exposure: No service: No Current occupational status: retired Cognitive needs: No Hearing needs: No Vision needs: Yes Questionnaire PHQ-9 Over the last 2 weeks, how often have you been bothered by any of the following problems? 1. Little interest or pleasure in doing things: not at all 2. Feeling down, depressed, or hopeless: not at all 3. Trouble falling or staying asleep, or sleeping too much: not at all 4. Feeling tired or having little energy: not at all 5. Poor appetite or overeating: not at all 6. Feeling bad about yourself - or that you are a failure or have let yourself or your family down: not at all 7. Trouble concentrating on things, such as reading the newspaper or watching television: not at all 8. Moving or speaking so slowly that other people could have noticed. Or the opposite - being so fidgety or restless that you have been moving around a lot more than usual: not at all 9. Thoughts that you would be better off or of hurting yourself in some way: not at all Total score: 0 Source: Developed by Drs. Rowdy Lugo, Georgie Braun, Willie Stevenson and colleagues, with an educational trinidad from [employer]. Thrive Questionnaire Date Thrive assessed: 03/28/25 I am a: Patient What is your living situation today?: I have a steady place to live Within the past 12 months, did the food you bought not last and you didn't have the money to get more?: Never true Within the past 12 months, did you worry whether your food would run out before you got money to buy more?: Never true Do you have trouble paying for medicines?: No Do you have trouble getting transportation to medical appointments?: No Do you have trouble paying your heating and electricity bill?: No Do you have trouble taking care of your child, family member or friend?: No Do you have trouble with day-to-day activities such as bathing, preparing meals, shopping, managing finances, etc.?: No Are you currently unemployed and looking for a job?: No Are you interested in more education?: No Please select the resources that you would like help with: None Currently or been in a relationship where the following occur: No concerns reported THRIVE Score: 0 AUDIT C Alcohol Use Questionnaire (AUDIT-C) 1. How often do you have a drink containing alcohol?: Never 2. How many drinks containing alcohol do you have on a typical day when you are drinking?: 1 or 2 Total Score: 0 MARISOL-7 AMB Questionnaire MARISOL-7 Date MARISOL - 7 assessed: 12/11/24 Feeling nervous, anxious, or on edge: 0 = Not at all Not being able to stop or control worryin = Not at all Worrying too much about different things: 0 = Not at all Trouble relaxin = Not at all Being so restless that it is hard to sit still: 0 = Not at all Becoming easily annoyed or irritable: 0 = Not at all Feeling afraid as if something awful might happen: 0 = Not at all Total MARISOL-7 score (0-4 normal; 5-9 mild; 10-14 moderate; 15-21 severe): 0 Source: Developed by Drs. Rowdy Lugo, Georgie Braun, Willie Stevenson and colleagues, with an educational trinidad from [employer]. Physical exam (Primary Care) Vital Signs: Last Vital Signs Temp 97.3 F 03/28/25 10:32 Oxygen Delivery Method Room Air 03/28/25 10:32 BMI result Body Mass Index 32.5 Tobacco/Smoking Status: Tobacco use Status Tobacco use date assessed 12/11/24 12/11/24 10:08 Patient Tobacco Use Status Never used Tobacco 12/11/24 10:08 Tobacco use type Cigarette 12/11/24 10:08 e-Cigarette/Vaping Use Never Used 12/11/24 10:08 Thrive Assessment: Date of Thrive Assessment Date Thrive assessed 03/28/25 03/28/25 09:37 Currently or been in a relationship where the following occur: No concerns reported Const General: alert; No acute distress Eyes Conjunctivae: conjunctivae normal Resp Auscultation: clear to auscultation bilaterally Cardio Rate: regular rate Rhythm: regular rhythm GI Inspection: Yes normal to inspection Extrem General: Yes normal to inspection and No edema Coding Level of Care Code Est Pt Level 4 (99606) Complex EM visit Add On G2211 Diagnoses L2 vertebral fracture S32.029A Hemophilia A D66 Atrial fibrillation I48.91 Assessment & Plan Assessment & Plan (1) L2 vertebral fracture: Code(s): S32.029A - Unspecified fracture of second lumbar vertebra, initial encounter for closed fracture Category: Medical Plan: Reviewed notes from Hematology-Oncology as well as pain management. 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 Plan History of Present Illness The patient is a 74-year-old male presenting with a history of L2 vertebral fracture and associated pain management issues. The fracture was last evaluated on December 11, 2024, and the patient was referred to pain management due to persistent discomfort. Due to a history of hemophilia A, the patient required hematology clearance before undergoing spinal injections or device implantation for pain management. The patient has a history of benign prostatic hyperplasia, hypertension, nephrolithiasis, hepatic steatosis, and hypercholesterolemia. He also has a history of generalized anxiety disorder and renal insufficiency, with a recent blood test showing anemia with hemoglobin at 12.1 g/dL and hematocrit at 36.7%. Renal function tests indicated a creatinine level of 1.47 mg/dL and a GFR of 47 mL/min/1.73 m?. The patient has been advised to receive Factor VIII prior to any procedures to prevent bleeding complications due to hemophilia A. Hematology oncology has recommended that any procedures be performed at a tertiary hospital for optimal care. Health Maintenance Social History Review of Systems - Musculoskeletal: Reports discomfort when walking due to L2 vertebral fracture. Physical Exam Results - Labs: Hemoglobin 12.1 g/dL, Hematocrit 36.7%, Creatinine 1.47 mg/dL, GFR 47 mL/min/1.73 m?. - Labs: PTT prolonged at 47.7 seconds. - Labs: LDL cholesterol 44 mg/dL (December 03). Plan The patient will continue to receive Factor VIII prior to any procedures to manage hemophilia A and prevent bleeding complications. Hematology oncology has advised that procedures be conducted at a tertiary hospital to ensure comprehensive care. Pain management will involve a prescription for pain medication, with a plan to monitor usage closely to prevent dependency. The patient has been informed about the potential side effects of narcotics, including constipation and respiratory issues, and a pain contract will be established to manage medication use responsibly. An x-ray of the lumbar region will be ordered to assess the status of the vertebral fracture. The patient will be seen monthly initially to monitor pain management and medication adherence, with the possibility of extending the interval between visits as trust is established. Patient was informed and verbally consented to the use of an ambient scribe for clinic note documentation during this visit. Discussion Notes I discussed with the patient the necessity of receiving Factor VIII prior to any procedures to prevent bleeding due to hemophilia A. We reviewed the recommendation from hematology oncology to perform procedures at a tertiary hospital for optimal care. I explained the potential side effects of narcotic pain medications, including constipation and respiratory issues, and emphasized the importance of adhering to a pain contract to manage medication use responsibly. We also discussed the plan to order an x-ray of the lumbar region to assess the status of the vertebral fracture and the need for monthly follow-ups to monitor pain management and medication adherence. Patient Instructions - Continue receiving Factor VIII prior to any procedures. - Follow up with hematology oncology for any procedures at a tertiary hospital. - Take pain medication as prescribed and adhere to the pain contract. - Be aware of potential side effects of narcotics, including constipation and breathing difficulties. - Schedule and attend monthly follow-up appointments for pain management and medication monitoring. - Obtain an x-ray of the lumbar region as ordered to assess the vertebral fracture. Orders: Orders XR lumbar spine 2-3V Today S32.029A - Unspecified fracture of second lumbar vertebra, initial encounter for closed fracture Medications: Changed From oxycodone-acetaminophen 5-325 mg (Percocet) Partial Fill upon patient request. 1 tab PO BID 12 days PRN 24 tabs 0RF pain S32.029A - Unspecified fracture of second lumbar vertebra, initial encounter for closed fracture To oxycodone-acetaminophen 5-325 mg (Percocet) Partial Fill upon patient request. 1 tab PO BID PRN 60 tabs 0RF pain 30 days S32.029A - Unspecified fracture of second lumbar vertebra, initial encounter for closed fracture
[2025-03-28 10:32] VITALS: BP 110/66; PULSE 84; TEMP 36.3; O2SAT 98; BMI 32.5
--- OUTSIDE RECORDS SUMMARY | 2025-03-28 10:53 | XMS_ITS | Patient Health Record ---
Author Organization [facility] Address [address] [place] [address] Care Team Providers Care [employer] Name Role Phone Jennifer Parikh MD Primary Care Provider Rowdy Kelley [phone] Allergies No Known Allergies Reason For Referral [...] W/U Status Risk Notes Problem Ileostomy present (818590484) 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) Active confirmed Problem 886325221 Chronic hepatitis C without hepatic coma (B18.2) Active confirmed Problem [id number] Abnormal liver ultrasound (R93.2) Active confirmed Problem [id number] History of hepatitis C (Z86.19) Active confirmed Problem 84289661 Liver fibrosis (K74.00) Active confirmed Plan Of [...] Insured Coverage Start Date Coverage End Date [facility] [address] [place], [place] [id number] KIZZYHALLIE [place] Self - patient is the [...] is aware of this finding hemophilia Denies [place],DM,CVA,Lung disease,renal dise ase Kidney stones he had [...]
== END 2025-03-28 11:06 | disposition home or self-care (01) ==
LOC: HO.HMCH 10:13
PROVIDERS: PCP Internal Medicine; Visit Provider Internal Medicine
DX: S32.029A Unspecified fracture of second lumbar vertebra, initial encounter for closed fracture (principal); D66 Hereditary factor VIII deficiency; I48.91 Unspecified atrial fibrillation

== ENCOUNTER → 2025-03-28 10:12 | Outpatient (BNVA) | payer MEDICARE, BC, SELFPAY | PROVIDERS: PCP Internal Medicine; Visit Provider Internal Medicine | DX: D66 Hereditary factor VIII deficiency (principal); I48.91 Unspecified atrial fibrillation; S32.029D Unspecified fracture of second lumbar vertebra, subsequent encounter for fracture with routine healing | CPT/HCPCS: 99212 ==

== ENCOUNTER 2025-03-29 07:31 | Outpatient (REF) | payer MEDICARE, BC, SELFPAY ==
--- NOTE | ~2025-03-29 | XR_ITS ---
EXAMINATION: XR LUMBOSACRAL SPINE CLINICAL INFORMATION: S32.029A - Unspecified fracture of second lumbar vertebra, initial encou... COMPARISON: None available. TECHNIQUE: Three views of the lumbosacral spine. FINDINGS: There is maintained lumbar lordosis with severe wedge compression fracture and absorption of L2 vertebra . A loss of T12 vertebral height is also visualized. Rest of the vertebral heights are maintained normal. There is grade 1 anterolisthesis L4 over L5 and grade 1 retrolisthesis L2 over L3. There are large anterior bridging osteophytes at the T12-L1 and L1-2 disc levels. No lytic or sclerotic process seen. The paravertebral soft tissues are normal. XR/XR lumbar spine 2-3V IMPRESSION: Severe wedge compression fracture L2 vertebra stable compared to previous exam 11/04/2024. Mild anterior wedge compression fracture old unchanged to 11/04/2024 exam. No acute fracture seen. No change in grade 1 anterolisthesis L4 over L5 and grade 1 retrolisthesis L2 over L3. Large ventral bridging osteophytes at L1-2 and small bridging osteophyte at T12-L1 disc level. Electronically signed by: Tu Beverly MD 03/31/2025 07:32 AM EDT
--- OUTSIDE RECORDS SUMMARY | 2025-03-29 07:34 | XMS_ITS | Patient Health Record ---
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 Name Role Phone Jennifer Parikh MD Primary Care Provider Rowdy Kelley [phone] Allergies No Known Allergies Reason For Referral [...] Problem 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) Active confirmed Problem 697506630 Chronic hepatitis C without hepatic coma (B18.2) Active confirmed Problem [id number] Abnormal liver ultrasound (R93.2) Active confirmed Problem 57644540770108 History of hepatitis C (Z86.19) Active confirmed Problem 57709724 Liver fibrosis (K74.00) Active confirmed Plan Of [...] Insured Coverage Start Date Coverage End Date [facility] [address] [place] [phone] [id number] KIZZYFRANCESCA HALLIE Self - patient is the [...] is aware of this finding hemophilia Denies [place],DM,CVA,Lung disease,renal dise ase Kidney stones he had [...]
== END 2025-03-29 07:32 | disposition home or self-care (01) ==
LOC: HO.XRAY 07:31
PROVIDERS: PCP Internal Medicine; Visit Provider Internal Medicine
DX: S32.029A Unspecified fracture of second lumbar vertebra, initial encounter for closed fracture (principal)
CPT/HCPCS: 72100

== ENCOUNTER → 2025-03-29 07:36 | Outpatient (BNV) | payer MEDICARE, BC, SELFPAY | PROVIDERS: PCP Internal Medicine; Visit Provider Radiology Diagnostic Radiology | DX: S32.020A Wedge compression fracture of second lumbar vertebra, initial encounter for closed fracture (principal); M48.16 Ankylosing hyperostosis [Forestier], lumbar region | CPT/HCPCS: 72100 ==

== ENCOUNTER 2025-04-28 12:54 | Outpatient (AMB) | payer MEDICARE, BC, SELFPAY ==
--- NOTE | 2025-04-28 13:01 | MHC.PC.OV ---
Vital Signs 04/28/25 13:02 Height 5 ft 8 in Weight 215 lb 8 oz BMI 32.8 BP 134/66 Blood Pressure Location Lt brachial Position Sitting Pulse 63 Pulse Source Pulse Oximeter Temp Source Temporal Artery Scan Pulse Oximetry (%) 97 Oxygen Delivery Method Room Air Intake Visit Reasons: Lumbar vertebral fracture Change Control Analyst Required: No Accompanied by: Self / Same As Patient Allergies No Known Allergies Allergy (Verified 04/28/25 13:14) Medication List - Last Reconciled 04/28/25 by Sharda Armenta PA-C aspirin 81 mg PO DAILY calcium carbonate-vitamin D3 600 mg-5 mcg (200 unit) (Calcium 600 + D(3)) 1 tab PO DAILY celecoxib (Celebrex) 100 mg PO BID cyanocobalamin (vitamin B-12) 1,000 mcg PO DAILY dronedarone (Multaq) 400 mg PO BID finasteride 5 mg PO DAILY 90 days folic acid 1 mg PO DAILY gabapentin 300 mg PO DAILY midodrine 2.5 mg PO TID PRN nystatin 1 appl topical DAILY PRN oxycodone-acetaminophen 5-325 mg (Percocet) 1 tab PO BID PRN 30 days potassium citrate ER 20 mEq (2 x 10 mEq (1,080 mg)) PO DAILY@1700 90 days pyridoxine (vitamin B6) 100 mg PO DAILY 90 days sertraline 25 mg PO DAILY simvastatin 5 mg PO BEDTIME tizanidine 4 mg PO BEDTIME PRN walker As directed Tobacco use date assessed: 04/28/25 Fall risk assessment: No Falls in past year Dental Screening Dental Screen Date: 04/28/25 Did you have a dental visit in the last 12 months?: No Did you have a dental problem in the last 6 months where you did not have access to dental care?: No Was dental information given to patient?: No HPI Lumbar vertebral fracture HPI Details 74-year-old male with past medical history of AFib, hypercholesterolemia, hypertension last seen by Dr. Parikh 03/2025 coming in for follow up. Presenting with chronic back pain. Chronic back pain persists despite previous interventions, with referrals to various facilities including [facility] and [facility], and potential referrals to [place] or [place] for further management. Current medications include oxycodone and tizanidine, with the latter causing significant drowsiness. The patient has a history of hemophilia, complicating pain management strategies. Imaging revealed a stable compression fracture at L2 and significant osteoarthritis with bone spurs and vertebral sliding at multiple levels. [facility] Medical History L2 vertebral fracture CKD (chronic kidney disease) stage 3, GFR 30-59 ml/min Hemophilia A Dyspnea on exertion Weakness Atrial flutter with rapid ventricular response LACY (acute kidney injury) Atrial fibrillation with rapid ventricular response Back pain Bilateral kidney stones Ileostomy in place Lymphangitis Edema of lower extremity Parastomal hernia Obesity (BMI 30-39.9) Nocturnal hypoxemia Restrictive lung disease Essential hypertension Hemophilia Loja cyst Renal stones History of cataract BPH (benign prostatic hyperplasia) Gout Crohn's disease Peripheral vascular disease Thrombocytopenia History of hepatitis C Cholelithiasis Osteopenia Surgical History S/P colectomy Status post ablation of incompetent vein using laser (01/13/23) H/O tooth extraction History of appendectomy History of urethral stent History of cataract surgery H/O wrist surgery Family History Father Prostate cancer Mother Diabetes Maternal Grandfather Factor VIII deficiency hemophilia Social History Household Members: Spouse Household Members Other:: 1 Housing: House Are you a primary health care recruiter to a significant other at home: No Do you presently have visiting nurse or other home services: No Alcohol intake: current Alcohol intake frequency: does not drink Alcohol type: beer Comment: no camera space available. Pt remains calm and cooperative, not impulsive Patient Tobacco Use Status: Never used Tobacco Tobacco use type: Cigarette e-Cigarette/Vaping Use: Never Used Second Hand Smoke Exposure: No service: No Current occupational status: retired Cognitive needs: No Hearing needs: No Vision needs: Yes Questionnaire PHQ-9 Over the last 2 weeks, how often have you been bothered by any of the following problems? 1. Little interest or pleasure in doing things: not at all 2. Feeling down, depressed, or hopeless: not at all 3. Trouble falling or staying asleep, or sleeping too much: not at all 4. Feeling tired or having little energy: not at all 5. Poor appetite or overeating: not at all 6. Feeling bad about yourself - or that you are a failure or have let yourself or your family down: not at all 7. Trouble concentrating on things, such as reading the newspaper or watching television: not at all 8. Moving or speaking so slowly that other people could have noticed. Or the opposite - being so fidgety or restless that you have been moving around a lot more than usual: not at all 9. Thoughts that you would be better off or of hurting yourself in some way: not at all Total score: 0 Source: Developed by Drs. Rowdy Lugo, Georgie Braun, Willie Stevenson and colleagues, with an educational tirnidad from [employer]. Thrive Questionnaire Date Thrive assessed: 04/28/25 I am a: Patient What is your living situation today?: I have a steady place to live Within the past 12 months, did the food you bought not last and you didn't have the money to get more?: Never true Within the past 12 months, did you worry whether your food would run out before you got money to buy more?: Never true Do you have trouble paying for medicines?: No Do you have trouble getting transportation to medical appointments?: No Do you have trouble paying your heating and electricity bill?: No Do you have trouble taking care of your child, family member or friend?: No Do you have trouble with day-to-day activities such as bathing, preparing meals, shopping, managing finances, etc.?: No Are you currently unemployed and looking for a job?: No Are you interested in more education?: No Please select the resources that you would like help with: None Currently or been in a relationship where the following occur: No concerns reported THRIVE Score: 0 MARISOL-7 AMB Questionnaire MARISOL-7 Date MARISOL - 7 assessed: 04/28/25 Source: Developed by Drs. Rowdy Lugo, Georgie Braun, Willie Stevenson and colleagues, with an educational trinidad from [employer]. Review of Systems Const Denies body aches, Denies chills, Denies fever(s) and Denies poor appetite Eyes Reports no additional complaints Card Denies chest pain, Denies lightheadedness and Denies dyspnea Resp Denies dyspnea GI Denies constipation, Denies nausea and Denies vomiting Reports no additional complaints Musc Reports abnormal gait and Reports back pain Skin/Breast Reports system reviewed and no additional complaints, except as documented Neuro Reports abnormal gait Psych Reports no additional complaints Physical exam (Primary Care) Vital Signs: Last Vital Signs Pulse 63 04/28/25 13:02 BP 134/66 04/28/25 13:02 Pulse Ox 97 04/28/25 13:02 Oxygen Delivery Method Room Air 04/28/25 13:02 BMI result Body Mass Index 32.8 Tobacco/Smoking Status: Tobacco use Status Tobacco use date assessed 04/28/25 04/28/25 13:07 Patient Tobacco Use Status Never used Tobacco 04/28/25 13:07 Tobacco use type Cigarette 04/28/25 13:07 e-Cigarette/Vaping Use Never Used 04/28/25 13:07 Thrive Assessment: Date of Thrive Assessment Date Thrive assessed 04/28/25 04/28/25 13:07 Currently or been in a relationship where the following occur: No concerns reported Const General: cooperative, healthy appearing, comfortable and no acute distress Orientation/consciousness: patient oriented x3 HENMT Head: Yes normocephalic Ears: hearing grossly normal bilaterally General nose exam: Normal external nose present Eyes General: appearance normal, both eyes and all related structures Conjunctivae: conjunctivae normal Neck Neck: Yes full ROM and Yes no lymphadenopathy Resp Effort & Inspection: normal respiratory effort Auscultation: clear to auscultation bilaterally, no crackles, no rales, no rhonchi and no wheezes Cardio Rate: regular rate Rhythm: regular rhythm Skin General skin exam: no rashes or lesions noted Neuro General: patient oriented x3 Gait exam (Neuro): Normal gait present Extrem General: Yes normal to inspection, Yes full ROM and No edema Psych Affect: normal affect Attitude: cooperative Insight: Good insight present (Psych) Judgement: Good judgement present (Psych) Coding Level of Care Code Est Pt Level 3 (13445) Diagnoses Essential hypertension I10 Atrial fibrillation I48.91 Hypercholesteremia E78.00 Obesity (BMI 30-39.9) E66.9 L2 vertebral fracture S32.029A Assessment & Plan Assessment & Plan (1) Essential hypertension: Code(s): I10 - Essential (primary) hypertension Category: Medical Plan: Continue on current blood pressure medication. Avoid salt intake and encourage healthy diet and regular exercise. (2) Atrial fibrillation: Code(s): I48.91 - Unspecified atrial fibrillation Category: Medical Plan: Continue to follow with Cardiology (3) Hypercholesteremia: Code(s): E78.00 - Pure hypercholesterolemia, unspecified Category: Medical Plan: Avoid foods that are high in cholesterol such as red meat, fried foods, eggs and baked goods. Triglyceride goal of less than 150 and LDL goal of less than 100. Up-to-date on blood work (4) Obesity (BMI 30-39.9): Comment: PATIENT IS MODERATELY OBESE THERE HAS BEEN NO RECENT INCREASE IN HIS WEIGHT. I MADE HIM AWARE THAT HE SHOULD LOSE ABOUT 10 LB OF WEIGHT Code(s): E66.9 - Obesity, unspecified Category: Medical Plan: Healthy diet and regular exercise is encouraged. (5) L2 vertebral fracture: Code(s): S32.029A - Unspecified fracture of second lumbar vertebra, initial encounter for closed fracture Category: Medical Plan: Patient has she will be here L2 vertebral fracture that was deemed by Neurosurgery to be nonsurgical. He was seen by pain management and advised an intrathecal drug delivery system for pain management. Due to his hemophilia he is not a candidate to have this performed at our clinic and was referred to [facility] who referred him to [place]. Referral was placed to [place] pain management at this time. Continue on current pain medication and follow up in 1 month Plan The plan includes continuing current pain management strategies with oxycodone and tizanidine, while monitoring for side effects such as drowsiness. A referral to a custom motorcycle painter in [place] or [place] will be made to explore further treatment options, considering the patient's hemophilia and complex spinal issues. The patient will continue follow-up with cardiology for atrial fibrillation management and maintain current anticoagulation therapy with baby aspirin. Regular monitoring of blood pressure and cholesterol levels will continue, with lab work scheduled biannually. Given the family history of bone cancer, vigilance will be maintained for any signs of malignancy, although current imaging shows no evidence of cancer in the lumbar spine. This note was constructed using voice recognition software. While every effort has been made to ensure accuracy and admissions officer, still areas may have been included sometimes these areas may affect the content or meeting of the given symptoms. Total time spent caring for the patient today was 30 minutes. This includes time spent before the visit reviewing the chart, time spent during the visit, and time spent after the visit and documentation. Patient was informed and verbally consented to the use of an ambient scribe for clinic note documentation during this visit. Orders: Referrals Pain Management Referral G89.4 - Chronic pain syndrome, M48.46XA - Fatigue fracture of vertebra, lumbar region, initial encounter for fracture, S32.029A - Unspecified fracture of second lumbar vertebra, initial encounter for closed fracture
[2025-04-28 13:02] VITALS: BP 134/66; PULSE 63; O2SAT 97; BMI 32.8
--- OUTSIDE RECORDS SUMMARY | 2025-04-28 13:36 | XMS_ITS | Patient Health Record ---
Author Organization [facility] Address [address] [place] [address] Care Team Providers Care Heating Worker Name Role Phone Jennifer Parikh MD Primary Care Provider Rowdy Kelley [phone] Allergies No Known Allergies Reason For Referral [...] W/U Status Risk Notes Problem Ileostomy present (781696280) 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) Active confirmed Problem 179989296 Chronic hepatitis C without hepatic coma (B18.2) Active confirmed Problem [id number] Abnormal liver ultrasound (R93.2) Active confirmed Problem 49853219369461 History of hepatitis C (Z86.19) Active confirmed Problem 27476945 Liver fibrosis (K74.00) Active confirmed Plan Of Treatment Pending Test Test Name Order Date BUN 12/09/2021 LIVER PROFILE 09/06/2015 LIVER PROFILE 03/21/2015 LIVER PROFILE 02/11/2015 LIVER PROFILE 07/15/2015 CBC w DIFF 09/06/2015 CBC w DIFF 03/21/2015 CBC w DIFF 02/11/2015 ALPHA-FETOPROTEIN,TUMOR MARKER 2 ALPHA-FETOPROTEIN,TUMOR MARKER 5 HEPATITIS C VIRAL LOAD 07/15/2015 HEPATITIS C VIRAL LOAD 02/11/2015 HEPATITIS C VIRAL LOAD 10/27/2021 HEPATITIS C VIRAL LOAD 09/06/2015 HEPATITIS C VIRAL LOAD 03/21/2015 MRI ABD W&WO CONTRAST 12/09/2021 US ABD 11/06/2021 Creatinine 12/09/2021 Insurance Providers Payer Name Payer Address Payer Phone Subscriber Number Group Number Insured Name Patient Relationship to Insured Coverage Start Date Coverage End Date [facility] [address] [place], [place] [id number] KIZZYHALLIE [place] Self - patient is the [...] is aware of this finding hemophilia Denies HI,DM,CVA,Lung disease,renal dise ase Kidney stones he had [...]
== END 2025-04-28 13:41 | disposition home or self-care (01) ==
LOC: HO.HMCH 12:56
PROVIDERS: PCP Internal Medicine
DX: S32.029A Unspecified fracture of second lumbar vertebra, initial encounter for closed fracture (principal); I48.91 Unspecified atrial fibrillation; E66.9 Obesity, unspecified; Z68.32 Body mass index [BMI] 32.0-32.9, adult; I10 Essential (primary) hypertension; E78.00 Pure hypercholesterolemia, unspecified

== ENCOUNTER → 2025-04-28 12:54 | Outpatient (BNVA) | payer MEDICARE, BC, SELFPAY | PROVIDERS: PCP Internal Medicine | DX: I10 Essential (primary) hypertension (principal); I48.91 Unspecified atrial fibrillation; E78.00 Pure hypercholesterolemia, unspecified; E66.9 Obesity, unspecified; S32.029D Unspecified fracture of second lumbar vertebra, subsequent encounter for fracture with routine healing | CPT/HCPCS: 99212 ==

== ENCOUNTER 2025-05-20 10:06 | Outpatient (AMB) | payer MEDICARE, BC, SELFPAY ==
[2025-05-20 10:22] VITALS: BP 130/70; PULSE 74; BMI 33.9
--- NOTE | 2025-05-20 10:22 | A.OFFVIS_ITS ---
Vital Signs 05/20/25 10:22 Height 5 ft 8 in Weight 222 lb 10.67 oz BMI 33.9 BP 130/70 Blood Pressure Location Lt brachial Position Sitting Pulse 74 Pulse Source Monitor Intake Visit Reasons: 6m follow up Insurance Claims Adjuster Required: No Accompanied by: Self / Same As Patient Allergies No Known Allergies Allergy (Verified 04/28/25 13:14) Medication List - Last Reconciled 05/20/25 by Alex Dueñas MD aspirin 81 mg PO DAILY calcium carbonate-vitamin D3 600 mg-5 mcg (200 unit) (Calcium 600 + D(3)) 1 tab PO DAILY cyanocobalamin (vitamin B-12) 1,000 mcg PO DAILY dronedarone (Multaq) 400 mg PO BID finasteride 5 mg PO DAILY 90 days folic acid 1 mg PO DAILY gabapentin 300 mg PO DAILY midodrine 2.5 mg PO TID PRN nystatin 1 appl topical DAILY PRN oxycodone-acetaminophen 5-325 mg (Percocet) 1 tab PO BID PRN 30 days potassium citrate ER 20 mEq (2 x 10 mEq (1,080 mg)) PO DAILY@1700 90 days pyridoxine (vitamin B6) 100 mg PO DAILY 90 days sertraline 25 mg PO DAILY simvastatin 5 mg PO BEDTIME tizanidine 4 mg PO BEDTIME PRN walker As directed HPI Comments Details: Dirk returns for follow-up regarding atrial flutter and orthostatic hypotension. In the past, he was seen by EP for atrial flutter ablation but he decided not to proceed with the ablation. Otherwise, he has a history of hemophilia and hence not on anticoagulation. He really does not feel any symptoms from the atrial flutter and also he has been maintaining sinus rhythm with Multaq. Otherwise, history of orthostatic dizziness and he has been previously admitted to [facility] with a fall. Then put on midodrine. At that time, several meds were stopped including beta-blockers, diuretics, terazosin. There was also a question of Parkinson's in the discharge summary, but patient's states they saw neurology in it was ruled out. Since last seen, generally doing well. No new concerns. [facility] Medical History L2 vertebral fracture CKD (chronic kidney disease) stage 3, GFR 30-59 ml/min Hemophilia A Dyspnea on exertion Weakness Atrial flutter with rapid ventricular response LACY (acute kidney injury) Atrial fibrillation with rapid ventricular response Back pain Bilateral kidney stones Ileostomy in place Lymphangitis Edema of lower extremity Parastomal hernia Obesity (BMI 30-39.9) Nocturnal hypoxemia Restrictive lung disease Essential hypertension Hemophilia Loja cyst Renal stones History of cataract BPH (benign prostatic hyperplasia) Gout Crohn's disease Peripheral vascular disease Thrombocytopenia History of hepatitis C Cholelithiasis Osteopenia Surgical History S/P colectomy Status post ablation of incompetent vein using laser (01/13/23) H/O tooth extraction History of appendectomy History of urethral stent History of cataract surgery H/O wrist surgery Family History Father Prostate cancer Mother Diabetes Maternal Grandfather Factor VIII deficiency hemophilia Social History Household Members: Spouse Household Members Other:: 1 Housing: House Are you a primary career guidance technician to a significant other at home: No Do you presently have visiting nurse or other home services: No Alcohol intake: current Alcohol intake frequency: does not drink Alcohol type: beer Comment: no camera space available. Pt remains calm and cooperative, not impulsive Patient Tobacco Use Status: Never used Tobacco Tobacco use type: Cigarette e-Cigarette/Vaping Use: Never Used Second Hand Smoke Exposure: No service: No Current occupational status: retired Cognitive needs: No Hearing needs: No Vision needs: Yes Review of Systems Const Denies chills, Denies fatigue, Denies fever(s), Denies frequent falls, Denies weakness, Denies weight gain and Denies weight loss ENT Denies dizziness Card Denies chest pain, Denies leg edema, Denies lightheadedness, Denies palpitations, Denies dyspnea and Denies dyspnea on exertion Resp Denies cough, Denies dyspnea and Denies dyspnea on exertion GI Denies hematochezia Musc Denies abnormal gait, Denies muscle weakness, Denies numbness, Denies radiating pain into limb and Denies tingling Neuro Denies abnormal gait, Denies dizziness, Denies frequent falls, Denies numbness, Denies tingling and Denies weakness Endo Denies fatigue and Denies palpitations Physical Exam Vital Signs: Last Vital Signs Pulse 74 05/20/25 10:22 BP 130/70 05/20/25 10:22 BMI result Body Mass Index 33.9 Const General: comfortable and no acute distress Orientation/consciousness: patient oriented x3 HEENT Other: Unremarkable Head: Yes normal to inspection Neck Neck: Yes normal visual inspection Chest Chest palpation & inspection: normal inspection of the chest Resp Auscultation: clear to auscultation bilaterally Cardio Palpation: normal PMI Heart sounds: S1 normal heart sound present, S2 normal heart sound present, no gallops, no murmurs and no rubs GI Palpation (GI): Soft to palpation Back/Spine/Pelvis Other: unremarkable Skin General skin exam: no rashes or lesions noted Neuro General: patient oriented x3 Extrem General: Yes normal to inspection Psych Mental Status: mental status grossly normal Office Procedures EKG Details: EKG with underlying sinus rhythm at 74/Min; OR prolongation to 236 milliseconds; [place]. [id number], Complete Assessment & Plan Assessment & Plan (1) Atrial flutter by electrocardiogram: Code(s): I48.92 - Unspecified atrial flutter Category: Medical Plan: In the past, he used to have a very high PAC burden of as much as 41%. Recent Holter had shown atrial flutter with an average rate of 85/Min but reported as atrial fibrillation. In a subsequent Holter, he was mostly in sinus rhythm with a very small burden of probably atrial flutter with rapid rate. Preserved LVEF on echocardiogram. Beta-blockers have been stopped because of orthostatic hypotension/fall. 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 He did not follow through with the EP plan for ablation. Hence we will keep him on Multaq and he seems to be tolerating that well. In the past, has had sleep studies but no clear evidence of REGINO. EKG in 3 months. (2) Orthostatic hypotension: Code(s): I95.1 - Orthostatic hypotension Category: Medical Plan: Continue midodrine. Off metoprolol and Lasix. Seems overall improved. Plan Discussed with significant other who came for appointment. Coding Level of Care Code Est Pt Level 4 (95749) Complex EM visit Add On G2211 Diagnoses Atrial flutter by electrocardiogram I48.92 Orthostatic hypotension I95.1 CPT Codes EKG - CPT: 68487-[id number], Complete ([id number])
--- OUTSIDE RECORDS SUMMARY | 2025-05-20 11:20 | XMS_ITS | Patient Health Record ---
Author Organization [facility] Address [address] [place] [address] Care Team Providers Care Paint Department Supervisor Name Role Phone Jennifer Parikh MD Primary Care Provider Rowdy Kelley [phone] Allergies No Known Allergies Reason For Referral [...] W/U Status Risk Notes Problem Ileostomy present (211582103) 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) Active confirmed Problem 204162854 Chronic hepatitis C without hepatic coma (B18.2) Active confirmed Problem [id number] Abnormal liver ultrasound (R93.2) Active confirmed Problem 83494732940601 History of hepatitis C (Z86.19) Active confirmed Problem 46629883 Liver fibrosis (K74.00) Active confirmed Plan Of [...] Insured Coverage Start Date Coverage End Date [facility] [address] [place], [place] [phone] [phone] [id number] KIZZYHALLIE [place] Self - patient is the [...] is aware of this finding hemophilia Denies [place],DM,CVA,Lung disease,renal dise ase Kidney stones he had [...]
== END 2025-05-20 10:47 | disposition home or self-care (01) ==
LOC: HO.HCS 10:06
PROVIDERS: PCP Internal Medicine; Visit Provider Internal Medicine
DX: I48.92 Unspecified atrial flutter (principal); I95.1 Orthostatic hypotension
CPT/HCPCS: 93010; 99214; G2211

== ENCOUNTER → 2025-05-20 10:06 | Outpatient (BNVA) | payer MEDICARE, BC, SELFPAY | PROVIDERS: PCP Internal Medicine; Visit Provider Internal Medicine | DX: I95.1 Orthostatic hypotension (principal); I48.92 Unspecified atrial flutter | CPT/HCPCS: 93005; 99212 ==

== ENCOUNTER 2025-06-16 09:21 | Outpatient (AMB) | payer MEDICARE, BC, SELFPAY ==
[2025-06-16 09:26] VITALS: BP 134/62; PULSE 77; O2SAT 97; BMI 32.7
--- NOTE | 2025-06-16 09:26 | A.OFFPC_ITS ---
Vital Signs 06/16/25 09:26 Height 5 ft 8 in Weight 215 lb BMI 32.7 BP 134/62 Blood Pressure Location Lt brachial Position Sitting Pulse 77 Pulse Source Pulse Oximeter Pulse Oximetry (%) 97 Oxygen Delivery Method Room Air Intake Visit Reasons: 6 month f/u Allergies No Known Allergies Allergy (Verified 06/16/25 09:27) Tobacco use date assessed: 04/28/25 Fall risk assessment: No Falls in past year Last assessed Fall Risk: 06/16/25 Dental Screening Dental Screen Date: 04/28/25 HPI 6 month f/u HPI Details Went to [facility] Dr. Giovanna Hinton [phone] ON LICENSE OF [facility] Medical History L2 vertebral fracture CKD (chronic kidney disease) stage 3, GFR 30-59 ml/min Hemophilia A Dyspnea on exertion Weakness Atrial flutter with rapid ventricular response LACY (acute kidney injury) Atrial fibrillation with rapid ventricular response Back pain Bilateral kidney stones Ileostomy in place Lymphangitis Edema of lower extremity Parastomal hernia Obesity (BMI 30-39.9) Nocturnal hypoxemia Restrictive lung disease Essential hypertension Hemophilia Loja cyst Renal stones History of cataract BPH (benign prostatic hyperplasia) Gout Crohn's disease Peripheral vascular disease Thrombocytopenia History of hepatitis C Cholelithiasis Osteopenia Surgical History S/P colectomy Status post ablation of incompetent vein using laser (01/13/23) H/O tooth extraction History of appendectomy History of urethral stent History of cataract surgery H/O wrist surgery Family History Father Prostate cancer Mother Diabetes Maternal Grandfather Factor VIII deficiency hemophilia Social History Household Members: Spouse Household Members Other:: 1 Housing: House Are you a primary progressive care manager to a significant other at home: No Do you presently have visiting nurse or other home services: No Alcohol intake: current Alcohol intake frequency: does not drink Alcohol type: beer Comment: no camera space available. Pt remains calm and cooperative, not impulsive Patient Tobacco Use Status: Never used Tobacco Tobacco use type: Cigarette e-Cigarette/Vaping Use: Never Used Second Hand Smoke Exposure: No service: No Current occupational status: retired Cognitive needs: No Hearing needs: No Vision needs: Yes Questionnaire PHQ-9 Over the last 2 weeks, how often have you been bothered by any of the following problems? 1. Little interest or pleasure in doing things: not at all 2. Feeling down, depressed, or hopeless: not at all 3. Trouble falling or staying asleep, or sleeping too much: not at all 4. Feeling tired or having little energy: not at all 5. Poor appetite or overeating: not at all 6. Feeling bad about yourself - or that you are a failure or have let yourself or your family down: not at all 7. Trouble concentrating on things, such as reading the newspaper or watching television: not at all 8. Moving or speaking so slowly that other people could have noticed. Or the opposite - being so fidgety or restless that you have been moving around a lot more than usual: not at all 9. Thoughts that you would be better off or of hurting yourself in some way: not at all Total score: 0 Depression Screening Interpretation: Negative Depression Screening Done: Yes Source: Developed by Drs. Rowdy Lugo, Georgie Braun, Willie Stevenson and colleagues, with an educational trinidad from [employer] Thrive Questionnaire Date Thrive assessed: 03/28/25 I am a: Patient What is your living situation today?: I have a steady place to live Within the past 12 months, did the food you bought not last and you didn't have the money to get more?: Never true Within the past 12 months, did you worry whether your food would run out before you got money to buy more?: Never true Do you have trouble paying for medicines?: No Do you have trouble getting transportation to medical appointments?: No Do you have trouble paying your heating and electricity bill?: No Do you have trouble taking care of your child, family member or friend?: No Do you have trouble with day-to-day activities such as bathing, preparing meals, shopping, managing finances, etc.?: No Are you currently unemployed and looking for a job?: No Are you interested in more education?: No Please select the resources that you would like help with: None Currently or been in a relationship where the following occur: No concerns reported THRIVE Score: 0 AUDIT C Alcohol Use Questionnaire (AUDIT-C) 1. How often do you have a drink containing alcohol?: Never 2. How many drinks containing alcohol do you have on a typical day when you are drinking?: 1 or 2 3. How often do you have six or more drinks on one occasion?: Never Total Score: 0 MARISOL-7 AMB Questionnaire MARISOL-7 Date MARISOL - 7 assessed: 04/28/25 Source: Developed by Drs. Rowdy Lugo, Georgie Braun, Willie Stevenson and colleagues, with an educational trinidad from [employer] Physical exam (Primary Care) Vital Signs: Last Vital Signs Pulse 77 06/16/25 09:26 BP 134/62 06/16/25 09:26 Pulse Ox 97 06/16/25 09:26 Oxygen Delivery Method Room Air 06/16/25 09:26 BMI result Body Mass Index 32.7 Tobacco/Smoking Status: Tobacco use Status Tobacco use date assessed 04/28/25 06/16/25 09:31 Patient Tobacco Use Status Never used Tobacco 06/16/25 09:31 Tobacco use type Cigarette 06/16/25 09:31 e-Cigarette/Vaping Use Never Used 06/16/25 09:31 PHQ-9: PHQ-9 Score PHQ-9: Total score 0 06/16/25 09:34 Depression Screening Interpretation: Negative Thrive Assessment: Date of Thrive Assessment Date Thrive assessed 03/28/25 06/16/25 09:31 Currently or been in a relationship where the following occur: No concerns reported Const General: alert; No acute distress Eyes Conjunctivae: conjunctivae normal Resp Auscultation: clear to auscultation bilaterally Cardio Rate: regular rate Rhythm: regular rhythm GI Other: Ileostomy present on the right lower quadrant Extrem General: Yes normal to inspection and No edema Coding Level of Care Code Est Pt Level 4 (89573) Complex EM visit Add On G2211 Diagnoses L2 vertebral fracture S32.029A Cervical spinal stenosis M48.02 Obesity (BMI 30-39.9) E66.9 Hemophilia A D66 Atrial flutter by electrocardiogram I48.92 Hypercholesteremia E78.00 PAD (peripheral artery disease) I73.9 Essential hypertension I10 Generalized anxiety disorder F41.1 Assessment & Plan Assessment & Plan (1) L2 vertebral fracture: Code(s): S32.029A - Unspecified fracture of second lumbar vertebra, initial encounter for closed fracture Category: Medical Plan: Patient presently on pain control with oxycodone. Narcotic pain meds: Is being prescribed with the understanding that these medications are potentially addictive and should be used only when absolutely necessary and must always be secured. Any remaining pills should be safely disposed off appropriately. Patient is advised that narcotics can impaired judgment and one should not drive or operate heavy machinery while taking these medications. Never share these medications with anybody and do not leave them unattended. They will not be replaced under any circumstances. (2) Cervical spinal stenosis: Code(s): M48.02 - Spinal stenosis, cervical region Category: Medical Plan: Continuing to monitor (3) Obesity (BMI 30-39.9): Comment: PATIENT IS MODERATELY OBESE THERE HAS BEEN NO RECENT INCREASE IN HIS WEIGHT. 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 Be it pork or beef they have a lot of cholesterol on simvastatin 5 mg at bedtime (7) PAD (peripheral artery disease): Code(s): I73.9 - Peripheral vascular disease, unspecified Category: Medical Plan: Patient has hemophilia and is on aspirin (8) Essential hypertension: Code(s): I10 - Essential (primary) hypertension Category: Medical Plan: Continue with blood pressure medication. Decrease salt intake and exercise patient had labile blood pressure and is presently on midodrine (9) Generalized anxiety disorder: Comment: decline counselling Code(s): F41.1 - Generalized anxiety disorder Category: Medical Plan History of Present Illness The patient is a 74-year-old male presenting for management of multiple chronic conditions including atrial fibrillation and pain management. The patient has a history of atrial fibrillation and atrial flutter, for which he is maintained on Multaq. He was seen by cardiology on May 20 for atrial flutter and orthostatic hypotension. Due to his hemophilia, tight regulation of his atrial fibrillation is not pursued. The patient has a history of L2 vertebral fracture, last evaluated on April 28, 2025. An x-ray on March 31, 2025, showed a stable severe wedge compression fracture of the L2 vertebra compared to a previous exam on November 04. There is also grade 1 anterolisthesis at L4/L5 and L2/L3 with large ventral bridging osteophytes at L1-2 and small bridging osteophytes at T12-L1. The patient has cervical spondylosis with spinal canal stenosis and likely cord compression at C4-C7 without cord edema or myelopathy. He also has grade 1 anterolisthesis from C1 to T1, likely degenerative, and scoliosis. The patient has a history of Crohn's disease with an ileostomy. He also has mild renal insufficiency with a creatinine level of 1.47 mg/dL. The patient is currently on pain management with oxycodone, with a plan to monitor and adjust as needed. He has expressed concerns about the long-term use of narcotics and the potential for tolerance. Health Maintenance Social History Review of Systems Physical Exam Results - Labs: Creatinine level of 1.47 mg/dL indicating mild renal insufficiency. - Imaging: X-ray on March 31, 2025, showed stable severe wedge compression fracture of L2 vertebra, grade 1 anterolisthesis at L4/L5 and L2/L3, large ventral bridging osteophytes at L1-2, and small bridging osteophytes at T12-L1. Plan Patient was informed and verbally consented to the use of an ambient scribe for clinic note documentation during this visit. 1. Atrial Fibrillation The patient is maintained on Multaq for atrial fibrillation management, with cardiology follow-up noted on May 20 for atrial flutter and orthostatic hypotension. Due to the patient's hemophilia, tight regulation of atrial fibrillation is not pursued to avoid bleeding risks. 2. L2 Vertebral Fracture The patient has a stable severe wedge compression fracture of the L2 vertebra, with no acute changes noted on the x-ray from March 31, 2025. Pain management is ongoing with oxycodone, and the patient is advised to monitor and adjust the narcotic plan as needed. 3. Cervical Spondylosis The patient has cervical spondylosis with spinal canal stenosis and likely cord compression at C4-C7, without cord edema or myelopathy. Management includes monitoring for any progression of symptoms or neurological deficits. 4. Mild Renal Insufficiency The patient has mild renal insufficiency with a creatinine level of 1.47 mg/dL. Regular monitoring of renal function is advised to assess for any further decline. Discussion Notes During the visit, we discussed the management of atrial fibrillation with Multaq, considering the patient's hemophilia and the associated bleeding risks. We also reviewed the patient's pain management plan, emphasizing the importance of monitoring narcotic use to prevent tolerance and potential dependency. The patient was advised to continue regular follow-ups for renal function monitoring and to manage cervical spondylosis symptoms. Patient Instructions - Continue taking Multaq as prescribed for atrial fibrillation management. - Monitor and adjust pain medication as needed, and report any concerns about tolerance or dependency. - Follow up with cardiology and hematology as scheduled. - Maintain regular check-ups for renal function and cervical spondylosis. Orders: Orders Ferritin Today M1A.49X0 - Other secondary chronic gout, multiple sites, without tophus (tophi) Reticulocyte Count Today M1A.49X0 - Other secondary chronic gout, multiple sites, without tophus (tophi) IRON PROFILE Today M1A.49X0 - Other secondary chronic gout, multiple sites, without tophus (tophi) Magnesium Today M1A.49X0 - Other secondary chronic gout, multiple sites, without tophus (tophi) Uric Acid Today M1A.49X0 - Other secondary chronic gout, multiple sites, without tophus (tophi) Complete Blood Count Auto Diff Today M1A.49X0 - Other secondary chronic gout, multiple sites, without tophus (tophi) Comprehensive Met. Panel Today M1A.49X0 - Other secondary chronic gout, multiple sites, without tophus (tophi) Thyroid Stimulating Hormone Today M1A.49X0 - Other secondary chronic gout, multiple sites, without tophus (tophi)
--- OUTSIDE RECORDS SUMMARY | 2025-06-16 11:05 | XMS_ITS | Patient Health Record ---
Author Organization [facility] Address [address] [place] [address] Care Team Providers Care Glass Science Engineer Name Role Phone Jennifer Parikh MD Primary Care Provider Rowdy Kelley [phone] Allergies No Known Allergies Reason For Referral [...] W/U Status Risk Notes Problem Ileostomy present ([id number]) 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) Active confirmed Problem [id number] Chronic hepatitis C without hepatic coma (B18.2) Active confirmed Problem [id number] Abnormal liver ultrasound (R93.2) Active confirmed Problem [id number] History of hepatitis C (Z86.19) Active confirmed Problem [id number] Liver fibrosis (K74.00) Active confirmed Plan Of [...] Insured Coverage Start Date Coverage End Date [facility] [address] [place], [place] [id number] [phone] [id number] KIZZYHALLIE [place] Self - patient is the [...] is aware of this finding hemophilia Denies GA,DM,CVA,Lung disease,renal dise ase Kidney stones he had [...]
== END 2025-06-16 09:52 | disposition home or self-care (01) ==
LOC: HO.HMCH 09:22
PROVIDERS: PCP Internal Medicine; Visit Provider Internal Medicine
DX: I48.92 Unspecified atrial flutter (principal); S32.029A Unspecified fracture of second lumbar vertebra, initial encounter for closed fracture; D66 Hereditary factor VIII deficiency; Z68.32 Body mass index [BMI] 32.0-32.9, adult; E66.9 Obesity, unspecified; M48.02 Spinal stenosis, cervical region; E78.00 Pure hypercholesterolemia, unspecified; I73.9 Peripheral vascular disease, unspecified; I10 Essential (primary) hypertension; F41.1 Generalized anxiety disorder

== ENCOUNTER → 2025-06-16 09:21 | Outpatient (BNVA) | payer MEDICARE, BC, SELFPAY | PROVIDERS: PCP Internal Medicine; Visit Provider Internal Medicine | DX: M48.02 Spinal stenosis, cervical region (principal); E66.9 Obesity, unspecified; D66 Hereditary factor VIII deficiency; I48.92 Unspecified atrial flutter; E78.00 Pure hypercholesterolemia, unspecified; I73.9 Peripheral vascular disease, unspecified; I10 Essential (primary) hypertension; F41.1 Generalized anxiety disorder; S32.029A Unspecified fracture of second lumbar vertebra, initial encounter for closed fracture; X58.XXXA Exposure to other specified factors, initial encounter; Y93.9 Activity, unspecified; Y92.9 Unspecified place or not applicable; Y99.9 Unspecified external cause status | CPT/HCPCS: 96127; 99212 ==

== ENCOUNTER 2025-06-23 08:52 | Outpatient (REF) | payer MEDICARE, BC, SELFPAY ==
[2025-06-23 09:13] LABS: MANUAL DIFF FLAG NO
[2025-06-23 09:40] LABS: Hematocrit 36.9 % (42.0-52.0); Hemoglobin 12.0 g/dl (14.0-18.0); Imm Gran Abs Auto 0.03 X10*3/uL (0.00-0.03); Imm Gran Pct Auto 0.4 % (0.0-0.4); Lymphocytes Absolute Auto 2.2 X10*3/uL (1.2-4.9); Mean Corpuscular HGB Conc 32.5 g/dl (31.0-36.0); Mean Corpuscular Hemoglobin 29.9 pg (27.0-33.0); Mean Corpuscular Volume 91.8 fL (80.0-98.0); NRBC Abs Auto 0.000 X10*3/uL (0.0-0.012); NRBC Pct Auto 0.0 /100WBC (0.0-0.2); Platelet Count 164 X10*3/uL (160-400); Red Blood Count 4.02 X10*6/uL (4.60-5.80); Reticulocytes Absolute 0.050 X10*6/uL (0.026-0.095); White Blood Count 6.7 X10*3/uL (4.8-10.8)
[2025-06-23 10:09] LABS: Alanine Aminotransferase 22 U/L (0-40); Albumin Level 4.3 g/dL (3.5-5.0); Alkaline Phosphatase 80 U/L (39-117); Anion Gap 9 (12-20); Aspartate Amino Transferase 27 U/L (5-37); Blood Urea Nitrogen 24 mg/dL (9-16); Calcium 9.5 mg/dL (8.4-10.2); Carbon Dioxide 24 mmol/L (22-29); Chloride 112 mmol/L (96-108); Estimated Glomerular Filt Rate 47; Iron 59 mcg/dL (45-160); Magnesium 1.9 mg/dL (1.6-2.6); Percent Iron Saturation 22 % (15-50); Potassium 4.2 mmol/L (3.3-5.1); Sodium 141 mmol/L (135-145); Total Iron Binding Capacity 268 mcg/dL (228-428); Total Protein 7.1 g/dL (6.5-8.0); Unsaturated Iron Binding 209 ug/dL; Uric Acid 9.1 mg/dL (3.4-7.0)
[2025-06-23 10:28] LABS: Ferritin 148 ng/mL (20-250); Thyroid Stimulating Hormone 1.70 uIU/mL (0.32-4.0)
== END 2025-06-23 08:53 | disposition home or self-care (01) ==
LOC: HO.LAB 08:52
PROVIDERS: PCP Internal Medicine; Visit Provider Internal Medicine
DX: Z13.29 Encounter for screening for other suspected endocrine disorder (principal); M1A.49X0 Other secondary chronic gout, multiple sites, without tophus (tophi)
CPT/HCPCS: 36415; 80053; 82728; 83540; 83735; 84443; 84550; 85025; 85045

== ENCOUNTER 2025-07-17 14:17 | Outpatient (AMB) | payer MEDICARE, BC, SELFPAY ==
[2025-07-17 14:30] VITALS: BP 128/62; PULSE 82; O2SAT 97; BMI 34.1
--- NOTE | 2025-07-17 14:30 | A.OFFPC_ITS ---
Vital Signs 07/17/25 14:30 Height 5 ft 8 in Weight 224 lb BMI 34.1 BP 128/62 Blood Pressure Location Lt brachial Position Sitting Pulse 82 Pulse Source Pulse Oximeter Pulse Oximetry (%) 97 Oxygen Delivery Method Room Air Intake Visit Reasons: lumbar vertebral fracture Allergies No Known Allergies Allergy (Verified 07/17/25 14:30) Tobacco use date assessed: 04/28/25 Fall risk assessment: No Falls in past year Last assessed Fall Risk: 07/17/25 Dental Screening Dental Screen Date: 07/17/25 Did you have a dental visit in the last 12 months?: No Did you have a dental problem in the last 6 months where you did not have access to dental care?: No Was dental information given to patient?: No PFSH Medical History L2 vertebral fracture CKD (chronic kidney disease) stage 3, GFR 30-59 ml/min Hemophilia A Dyspnea on exertion Weakness Atrial flutter with rapid ventricular response LACY (acute kidney injury) Atrial fibrillation with rapid ventricular response Back pain Bilateral kidney stones Ileostomy in place Lymphangitis Edema of lower extremity Parastomal hernia Obesity (BMI 30-39.9) Nocturnal hypoxemia Restrictive lung disease Essential hypertension Hemophilia Loja cyst Renal stones History of cataract BPH (benign prostatic hyperplasia) Gout Crohn's disease Peripheral vascular disease Thrombocytopenia History of hepatitis C Cholelithiasis Osteopenia Surgical History S/P colectomy Status post ablation of incompetent vein using laser (01/13/23) H/O tooth extraction History of appendectomy History of urethral stent History of cataract surgery H/O wrist surgery Family History Father Prostate cancer Mother Diabetes Maternal Grandfather Factor VIII deficiency hemophilia Social History Household Members: Spouse Household Members Other:: 1 Housing: House Are you a primary animal care attendant to a significant other at home: No Do you presently have visiting nurse or other home services: No Alcohol intake: current Alcohol intake frequency: does not drink Alcohol type: beer Comment: no camera space available. Pt remains calm and cooperative, not impulsive Patient Tobacco Use Status: Never used Tobacco Tobacco use type: Cigarette e-Cigarette/Vaping Use: Never Used Second Hand Smoke Exposure: No service: No Current occupational status: retired Cognitive needs: No Hearing needs: No Vision needs: Yes Questionnaire PHQ-9 Over the last 2 weeks, how often have you been bothered by any of the following problems? 1. Little interest or pleasure in doing things: not at all 2. Feeling down, depressed, or hopeless: not at all 3. Trouble falling or staying asleep, or sleeping too much: not at all 4. Feeling tired or having little energy: not at all 5. Poor appetite or overeating: not at all 6. Feeling bad about yourself - or that you are a failure or have let yourself or your family down: not at all 7. Trouble concentrating on things, such as reading the newspaper or watching television: not at all 8. Moving or speaking so slowly that other people could have noticed. Or the opposite - being so fidgety or restless that you have been moving around a lot more than usual: not at all 9. Thoughts that you would be better off or of hurting yourself in some way: not at all Total score: 0 Depression Screening Interpretation: Negative Depression Screening Done: Yes Source: Developed by Drs. Rowdy Lugo, Georgie Braun, Willie Stevenson and colleagues, with an educational trinidad from [facility]. Thrive Questionnaire Date Thrive assessed: 03/28/25 I am a: Patient What is your living situation today?: I have a steady place to live Within the past 12 months, did the food you bought not last and you didn't have the money to get more?: Never true Within the past 12 months, did you worry whether your food would run out before you got money to buy more?: Never true Do you have trouble paying for medicines?: No Do you have trouble getting transportation to medical appointments?: No Do you have trouble paying your heating and electricity bill?: No Do you have trouble taking care of your child, family member or friend?: No Do you have trouble with day-to-day activities such as bathing, preparing meals, shopping, managing finances, etc.?: No Are you currently unemployed and looking for a job?: No Are you interested in more education?: No Please select the resources that you would like help with: None Currently or been in a relationship where the following occur: No concerns reported THRIVE Score: 0 MARISOL-7 AMB Questionnaire MARISOL-7 Date MARISOL - 7 assessed: 04/28/25 Source: Developed by Drs. Rowdy Lugo, Georgie Braun, Willie Stevenson and colleagues, with an educational trinidad from [facility]. Physical exam (Primary Care) Vital Signs: Last Vital Signs Pulse 82 07/17/25 14:30 BP 128/62 07/17/25 14:30 Pulse Ox 97 07/17/25 14:30 Oxygen Delivery Method Room Air 07/17/25 14:30 BMI result Body Mass Index 34.1 Tobacco/Smoking Status: Tobacco use Status Tobacco use date assessed 04/28/25 07/17/25 14:31 Patient Tobacco Use Status Never used Tobacco 07/17/25 14:31 Tobacco use type Cigarette 07/17/25 14:31 e-Cigarette/Vaping Use Never Used 07/17/25 14:31 PHQ-9: PHQ-9 Score PHQ-9: Total score 0 07/17/25 15:16 Depression Screening Interpretation: Negative Thrive Assessment: Date of Thrive Assessment Date Thrive assessed 03/28/25 07/17/25 14:31 Currently or been in a relationship where the following occur: No concerns reported Const General: alert; No acute distress Eyes Conjunctivae: conjunctivae normal Resp Auscultation: clear to auscultation bilaterally Cardio Rate: regular rate Rhythm: regular rhythm Extrem General: Yes normal to inspection and No edema Office Procedures Flu Questionnaire Does the patient have a severe egg allergy?: No Does the patient have severe life threatening allergies?: No Does the patient have a fever or illness today?: No Has the patient ever had Guillain-[place] Syndrome?: No Has the patient ever had any past reaction to a flu shot?: No Immunizations Fluarix [id number] (PF) 45 mcg (15 mcg x 3)/0.5 mL IM syringe Performing Provider: Jennifer Parikh MD [facility] [place] [facility] Administered by: Ami Hall CMA on 07/17/25 14:39 Dose Route Admin Location Dispensed Lot Number Expiration Date [facility] [place] 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 0.5 mL IM Left Deltoid 0.5 mL [id number] 03/31/26 01112-829-59 [employer] VIS Given Date VIS Provided VIS Publication Date 07/17/25 Single Vaccine 24 Eligibility Eligibility Date Funding Source Not VFC Eligible 07/17/25 Private Coding Level of Care Code Est Pt Level 4 (45227) Complex EM visit Add On G2211 Diagnoses Atrial fibrillation I48.91 Peripheral vascular disease I73.9 Hypercholesteremia E78.00 Obesity (BMI 30-39.9) E66.9 Fatty liver K76.0 BPH (benign prostatic hyperplasia) N40.0 L2 vertebral fracture S32.029A Assessment & Plan Assessment & Plan (1) Atrial fibrillation: Comment: Not on anticoagulation due to thrombocytopenia history Code(s): I48.91 - Unspecified atrial fibrillation Category: Medical Plan: Continue to monitor. Anticoagulation at placed to 2 thrombocytopenia history (2) Peripheral vascular disease: Code(s): I73.9 - Peripheral vascular disease, unspecified Category: Medical Plan: When sitting down elevate the legs, exercise, and support stockings (3) Hypercholesteremia: Code(s): E78.00 - Pure hypercholesterolemia, unspecified Category: Medical Plan: Avoid fried foods, chicken skin, eggs, butter margarine, pastries and meat. Be it pork or beef they have a lot of cholesterol on simvastatin 5 mg once a day (4) Obesity (BMI 30-39.9): Comment: PATIENT IS MODERATELY OBESE THERE HAS BEEN NO RECENT INCREASE IN HIS WEIGHT. I MADE HIM AWARE THAT HE SHOULD LOSE ABOUT 10 LB OF WEIGHT Code(s): E66.9 - Obesity, unspecified Category: Medical Plan: Diet and exercise (5) Fatty liver: Code(s): K76.0 - Fatty (change of) liver, not elsewhere classified Category: Medical Plan: Low-fat diet and exercise (6) BPH (benign prostatic hyperplasia): Code(s): N40.0 - Benign prostatic hyperplasia without lower urinary tract symptoms Category: Medical Plan: Continue to follow-up with urology on finasteride (7) L2 vertebral fracture: Code(s): S32.029A - Unspecified fracture of second lumbar vertebra, initial encounter for closed fracture Category: Medical Plan: Narcotic pain meds: Is being prescribed with the understanding that these medications are potentially addictive and should be used only when absolutely necessary and must always be secured. Any remaining pills should be safely disposed off appropriately. Patient is advised that narcotics can impaired judgment and one should not drive or operate heavy machinery while taking these medications. Never share these medications with anybody and do not leave them unattended. They will not be replaced under any circumstances. Plan History of Present Illness The patient is a 74-year-old male presenting for follow-up of multiple chronic conditions and preventative care. The patient has a history of hypertension, benign prostatic hyperplasia, gout, nephrolithiasis, cholelithiasis, peripheral artery disease, hypercholesterolemia, atrial fibrillation, genital and sciatic disorders, and a history of alcohol abuse. He also has a history of lumbar vertebral fracture with chronic pain, for which he has been receiving pain management. The patient reports a recent weight gain of 9 pounds and has been diagnosed with anemia, which was identified in labs conducted in June. His renal function is stable, with electrolytes and liver function tests within normal limits. The patient is not currently on anticoagulation therapy due to a history of thrombocytopenia. He continues to follow up with urology and is on medications including gabapentin and finasteride. Health Maintenance - Flu vaccination administered - Discussion on shingles vaccination, recommended but not required - COVID-19 vaccination discussed, recommended if not received in the last six months Social History - History of alcohol abuse Review of Systems - General: Reports recent weight gain of 9 pounds - Hematologic: Reports history of anemia - Cardiovascular: Denies chest pain or palpitations - Respiratory: Denies cough or dyspnea - ENT: Reports hoarseness for the past couple of days, denies fever Physical Exam - Oral examination: No abnormalities noted - Respiratory examination: Regular breathing observed Results - Labs: Anemia noted in June labs - Labs: Electrolytes and renal function stable - Labs: Liver function tests normal - Labs: LDL cholesterol at 44 mg/dL in November - Labs: Thyroid function normal Plan Patient was informed and verbally consented to the use of an ambient scribe for clinic note documentation during this visit. 1. Obesity The patient is advised to follow a low-fat diet and engage in regular exercise to manage weight gain. 2. Hypertension Continue monitoring blood pressure and adherence to current antihypertensive regimen. 3. Benign Prostatic Hyperplasia (Bph) The patient is advised to continue follow-up with urology and maintain current medication regimen including finasteride. 4. Gout Continue current management and monitor for flare-ups. 5. Nephrolithiasis Maintain adequate hydration to prevent recurrence of kidney stones. 6. Cholelithiasis Monitor for any symptoms suggestive of gallstone complications. 7. Peripheral Artery Disease (Pad) Continue monitoring and manage risk factors such as hypercholesterolemia. 8. Hypercholesterolemia The patient is on simvastatin 5 mg daily and advised to follow a low-fat diet and exercise regimen. 9. Atrial Fibrillation Continue monitoring and manage with current medications. 10. Lumbar Vertebral Fracture With Chronic Pain The patient is on gabapentin for pain management and advised to continue current regimen. 11. Anemia Monitor hemoglobin levels and ensure adequate nutritional intake to manage anemia. 12. Thrombocytopenia The patient is not on anticoagulation therapy due to thrombocytopenia history. Discussion Notes During the visit, we discussed the importance of managing chronic conditions such as hypertension, hypercholesterolemia, and obesity through lifestyle modifications including diet and exercise. We also reviewed the patient's medication regimen, ensuring adherence to prescribed treatments for conditions like BPH and chronic pain. Preventative care measures, including vaccinations for flu, shingles, and COVID-19, were recommended to maintain overall health. Patient Instructions - Follow a low-fat diet and engage in regular exercise to manage weight and cholesterol levels. - Continue taking prescribed medications as directed, including simvastatin and gabapentin. - Ensure adequate hydration to support kidney function. - Schedule follow-up appointments with urology and cardiology as needed. - Consider receiving shingles and COVID-19 vaccinations if not already done. Orders: Orders Influenza [id number] Immunization Today Z23 - Encounter for immunization
--- OUTSIDE RECORDS SUMMARY | 2025-07-17 17:58 | XMS_ITS | Data Portability ---
Author Organization [facility], [facility], Patient Home Address [address] [place] [id number] Care Team Providers Care Buttonholer Name Role Phone SHANTHI PINEDA Primary Care Provider POSHANTHI Referring Provider Assessment No assessment recorded. Plan of Treatment Reminders Order Date Submit Date Provider Last Modified By Organization Details Last Modified Time Details Appointments None recorded. Lab drug screen, urine 2024 025 [email or web address] Main Office, [address] [place] [address], [phone], 11:29:50 Referral None recorded. Procedures None recorded. Surgeries None recorded. Imaging None recorded. 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 Results Created Date Observation Date Name Description Value Unit Range Abnormal Flag Note LastModifiedBy Organization Detail LastModifiedTime 05/29/2005/31/2025 [facility] opiates ur ql cfm <100 NG/mL >=100 NONE DETEC ALHAJI Not Available [facility] [address] [place] [address], [address], 06/02/2025 12:04:57 05/29/2005/31/2025 [facility] alcohol metabolites ur ql cfm >=200 NG/mL >=200 POSIT STEPHAN Not Available [facility] [address] [place] [address], [place], [address], 06/02/2025 12:04:57 05/29/2005/31/2025 [facility] ethyl sulfate ur cfm-mcnc 4337 NG/mL >=200 POSIT STEPHAN Not Available [facility] [address] [place] [address], [place], [address], 06/02/2025 12:04:57 05/29/2005/31/2025 [facility] creat ur-mcnc 191.9 mg/dL 20 - 370 SHANDRA L Creat inine and pH are perfo rmed for speci men valid ity and not diagn ostic purpo ses. Not Available [facility] [address] [place], [address], 06/02/2025 12:04:57 05/29/20 25 05/31/2025 [facility] pH ur 4.99 4.5 - 9.0 SHANDRA L Creat inine and pH are perfo rmed for speci men valid ity and not diagn ostic purpo ses. Not Available [facility] [address] [facility], [place], [address], 06/02/2025 12:04:57 05/29/2006/02/2025 [facility] ethyl sulfate ur CMP 4337 NG/mL >=200 PRESE NT: Test resul t is consi stent with alcoh ol expos ure withi n 72 hours of speci men colle ction . For addit ional infor jayme n, plejaden e consu lt the [facility] Team at [phone] or email [email or web address]. Not Available [facility] [address] [facility], [place], [address], 06/02/2025 12:04:57 05/29/2006/02/2025 [facility] biodetect EXPECT ED Test resul t is consi stent with routi sarabjit ron zed human urine . Not Available [facility] [address] [facility], [place], [address], 06/02/2025 12:04:57 Result Notes None recorded. Problems Name Problem SNOMED Code Status Onset Date Resolution Date Notes Provider Name and Address Organization Details Recorded Time Essential hypertension 71314213 Active 2024 Kevin quintero null, [place] - [facility], [facility] 10:53:51 Atrial fibrillation 91943144 Active 2024 Kevin Yap-Love crowderon null, [place] - [facility], [facility] 10:53:58 Hypercholestero lemia 35626122 Active 2024 Kevin Yap-Love crowderon null, [place] - [facility], [facility] 10:54:07 Problem Notes None recorded. Procedures Surgical History Date Name Laterality Status Provider Name and Address Organization Details Recorded Time endoscopic biopsy of large intestine completed Lynne Judd [facility], [facility] 05/29/2025 10:45:57 biopsy of rectum completed Lynne [facility], [facility] 05/29/2025 10:46:04 colonoscopy completed Lynne [facility], [facility] 05/29/2025 10:46:14 operative procedure on wrist completed Lynne [facility], [facility] 05/29/2025 10:46:49 Imaging Results None recorded. Procedure Notes None recorded. Medical Equipment None Reported. Allergies No known drug allergies Medications Name Sig Start Date Stop Date Status Note LastModified by Organization Details LastModified Time terazosin 5 mg capsule TAKE 1 CAPSULE BY MOUTH AT BEDTIME 05/29 completed Not Available Not Available Not Available tizanidine 4 mg tablet Take 1 tablet every 6 hours by oral route. active Not Available Not Available No t Available meloxicam 15 mg tablet TAKE 1 TABLET BY MOUTH DAILY 05/29 completed Not Available Not Available Not Available midodrine 5 mg tablet TAKE 1 TABLET BY MOUTH THREE TIMES A DAY FOR 30 DAYS. 05/29 completed Not Available Not Available Not Available oxycodone-a cetaminophe n 5 mg-325 mg tablet TAKE 1 TABLET BY MOUTH THREE TIMES DAILY NEEDED active Not Available Not Available No t Available Celebrex 100 mg capsule Take 1 capsule every day by oral route. 05/29 completed Not Available Not Available Not Available oxycodone-a cetaminophe n 10 mg-325 mg tablet TAKE 1 TABLET BY MOUTH EVERY 6 HOURS FOR 7 DAYS 05/29 completed Not Available Not Available Not Available potassium citrate ER 10 mEq (1,080 mg) tablet,exte nded release TAKE 2 TABLETS BY MOUTH EVERY DAY active Not Available Not Available No t Available simvastatin 5 mg tablet TAKE 1 TABLET BY MOUTH AT BEDTIME active Not Available Not Available No t Available metoprolol tartrate 50 mg tablet TAKE 1 TABLET BY MOUTH TWICE DAILY 05/29 completed Not Available Not Available Not Available gabapentin 300 mg capsule TAKE 1 CAPSULE BY MOUTH DAILY active Not Available Not Available No t Available sertraline 25 mg tablet TAKE 1 TABLET BY MOUTH DAILY active Not Available Not Available No t Available folic acid 1 mg tablet TAKE 1 TABLET BY MOUTH DAILY active Not Available Not Available No t Available aspirin 81 mg tablet Take 1 tablet every day by oral route. active Not Available Not Available No t Available midodrine 2.5 mg tablet TAKE 1 TABLET BY MOUTH THREE TIMES DAILY NEEDED FOR HYPOTENSI ON active Not Available Not Available No t Available furosemide 20 mg tablet TAKE 1 TABLET BY MOUTH DAILY 05/29 completed Not Available Not Available Not Available finasteride 5 mg tablet TAKE 1 TABLET BY MOUTH DAILY active Not Available Not Available No t Available oxycodone 5 mg tablet TAKE 1 AND A HALF TABLETS BY MOUTH EVERY 3 HOURS NEEDED FOR SEVERE BREAKTHRO UGH PAIN BETWEEN OXYCONTIN DOSES. 05/29 completed Not Available Not Available Not Available tizanidine 4 mg capsule TAKE 1 CAPSULE BY MOUTH AT BEDTIME NEEDED FOR MUSCLE SPASMS 05/29 completed Not Available Not Available Not Available nystatin active Not Available Not Avai lable Not Available folic acid 05/29 completed Not Available Not Available Not Available Vitamin B6 active Not Available Not Av ailable Not Available Vitamin B12 active Not Available Not A vailable Not Available potassium bicarbonate -citric acid 20 mEq effervescen t tablet Take 1 tablet 4 times a day by oral route. active Not Available Not Available No t Available oxycodone 10 mg tablet TAKE 1 TABLET BY MOUTH EVERY 8 HOURS FOR 7 DAYS. 05/29 completed Not Available Not Available Not Available Multaq 400 mg tablet TAKE 1 TABLET BY MOUTH TWICE DAILY active Not Available Not Available No t Available Narcan 4 mg/actuatio n nasal spray Take 1 spray as needed by nasal route as directed for 1 day. 06/06 completed Not Available Not Available Not Available Alive Calcium-Vit chavis D3 active Not Available Not Available Not Available Vitals Date Recorded Body temperature Body height Body mass index (BMI) Body weight Respiratory rate Oxygen saturation Oxygen saturation in Arterial blood by Pulse oximetry Heart rate Systolic And Diastolic Provider Name and Address Organization Details Last Updated DateTime 5 97.6 [degF] 182.88 cm 29.2 kg/m2 14068.3 6 g 18 /min 97 % 97 % 89 /min 133/80 mm[Hg] Lynne Judd [facility], [facility] 5 10:49:17 Social History Question Answer Notes LastModified by Organizat ion Details LastModified Time Tobacco Smoking Status Former Smoker Lynne Dutch dubose [place] [facility], [facility] 05/29/2025 10:45:21 Are You Blind Or Do You Have Difficulty Seeing? No Information n ot available 05/29/2025 What Is Your Level Of Caffeine Consumption? Moderate [email or web address] Information not available 05/29/2025 In The 14 Days Before Symptom Onset, Have You Had Close Contact With A Laboratory-confirm ed COVID-19 While That Case Was Ill? No [email or web address] Information n ot available 05/29/2025 In The 14 Days Before Symptom Onset, Have You Had Close Contact With A Person Who Is Under Investigation For COVID-19 While That Person Was Ill? No Information not available 05/29/2025 Have You Been To An Area Known To Be High Risk For COVID-19? No [email or web address] Information not available 05/29/2025 Are You Deaf Or Do You Have Serious Difficulty Hearing? No [email or web address] Information not available 05/29/2025 What Type Of Diet Are You Following? REGULAR [email or web address] Information n ot available 05/29/2025 Which Of Your Hands Is Dominant? Left Information n ot available 05/29/2025 Do You Have Difficulty Walking Or Climbing Stairs? Yes [email or web address] Information not available 05/29/2025 Sex: Unknown Functional Status Question Answer Note LastModified by Organizat ion Details LastModified Time Do you use any illicit or recreational drugs? No [email or web address] Information not available 05/29/2025 Do you or have you ever used any other forms of tobacco or nicotine? No [email or web address] Information not available 05/29/2025 What is your level of alcohol consumption? None [email or web address] Information not available 05/29/2025 Are you currently employed? No [email or web address] Information not available 05/29/2025 Are you able to walk independently without assistance or assistive devices? YESASSIST [email or web address] Information not available 05/29/2025 Do you have difficulty doing errands alone? Yes [email or web address] Information not available 05/29/2025 Do you have difficulty dressing, bathing, grooming, or toileting? No Information not available 05/29/2025 Mental Status Question Answer Note LastModified by Organizat ion Details LastModified Time Do you feel stressed (tense, restless, nervous, or anxious, or unable to sleep at night)? [id number] [email or web address] Information not available 05/29/2025 Do you have difficulty concentrating, remembering or making decisions? No [email or web address] Information no t available 05/29/2025 Family History Nothing Reported. Medical History Condition Response Coronary Artery Disease N Gout N Hernia Y Head Trauma/Injury N Thyroid Problems N COPD N Depression N Anemia N Ulcers N Heart Attack (SC) N Anxiety Disorder N Diabetes N Bleeding Disorder Y Arthritis N Tuberculosis N AIDS/HIV N Acid Reflux (GERD) N Cancer N Stroke N Asthma N Substance Abuse N Back Injury Y High Cholesterol N Hepatitis Y Liver Disease N Heart Disease N Fibromyalgia N Headaches N Hypertension N Osteoporosis N Kidney Disease N Past Encounters Encounter ID Performer Location Encounter Start Date Encounter Closed Date Diagnosis/Indication Diagnosis SNOMED-CT Code Diagnosis ICD10 Code Diagnosis IMO Codes Diagnosis Note [id number] Matt Borjas MD Main Office [address] [place] [address] [address] [place] [address] 05/29/2025 10:12:55 05/29/2025 11:55:21 Long-term current use of opiate analgesic drug 6836957769 98236 Z79.697 6097752 Chronic pr imary low back pain 2549507768 7100 M54.59 G89.29 [id number] patient was advised not to drink alcohol while taking Percocet.T he risk of Percocet explained to the patient his wifeBMP was checked, no concern.Na rcan given with instructio n.Patient advised to comply with the prescripti on direction. Chronic opioid therapy regulation including controlled substance agreement and consent, prescripti on monitoring program, and urine drug screen monitoring were discussed with the patient. The benefit/go als of therapy including pain control to tolerable level and maintenanc e of functional status were discussed. Risk/adver se effects including constipati on, sedation, falls and opioid dependency where reviewed with the patient. Adjuvant treatment such as antidepres endy, anticonvul sants, corticoste roid injection, physical therapy, heavier therapy, massages, TENS unit, ETC, were discussed as well. Interactio ns of opioid with alcohol, benzodiaze pine and THC containing substances were discussed. Patient agreed not to use any of these substances in combinatio n with opioid. A signed controlled substance agreement is on file. Patient verbalized understand ing. Compressio n fracture of L2 [id number] 5099345 S32.020D [id number] home exercise programWei ght reduction programFol low-up with spine surgeon Lumbosacra l spondylosis without myelopathy 30515566 M47.817 [id number] home exercise programWei ght reduction programPla n in the future for bilateral lumbar facet RFR Spinal april nosis in cervical region 03260106 M48.02 [id number] follow-up with a spine surgeon Health Concerns Section Related Observation LastModified by Organization Detai ls LastModified Time None Recorded Concern Status LastModified by Organization Details LastModified Time None Recorded Advance Directives Directive None Recorded Payers Insurance Date Sequence Insurance Name Policy Number Policy Sierra Covered Member ID Sierra Member ID Guarantor Name 06/24/2025 1 [place]: [employer] Dirk Rosado [id number] Dirk Rosado 06/23/2025 2 [place] Nguyễn Rosado [id number] Dirk Rosado Notes Date Note Type Note Provider Name and Address Organization Details Recorded Time 05/29/2025 text/html 74 years old male with history of chronic low back pain for years, history of L2 compression fracture, hemophilia, A. fib, chronic kidney disease stage III, Crohn disease statuss post ileostomy, PVD. 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 Lumbar spine x-ray done and 03/29/2025 with impression: Severe with compression fracture at L2 vertebrae, stable compare to the previous exam 11/04/2024. Mild anterior which compression fracture or an change. No acute fracture seen, no change in a grade 1 anterolisthesis L4 over L5 and grade 1 retrolisthesis L2 over L3. MRI of the C-spine done in 11/16/2024 with impression: Multilevel cervical spondylosis, CC2-3 to C7-T1 resulting in central spinal canal stenosis and likely cord compression without cord edema and or myelopathy at C4-C5, C6-C7 level and multilevel neuroforaminal stenosis. Grade 1 anterolisthesis C7-T1 likely degenerative. Probable scoliosis, cervical thoracic spine. The patient continued conservative treatment in the last 6 months which included 6 successive weeks of home exercise program recommended by the MD without help. He is taking Percocet 5/325 mg twice a day, tizanidine 4 mg as needed. Skin UT today was negative for all drugs tested., Patient stated as he finished earlier his Percocet as he has increased pain especially in the morning. CSA reviewed with the patient in detail. Matt Borjas MD [address] [place] [address],[address], [place], [address], [facility], [facility] 05/29/2025 11:54:43
--- OUTSIDE RECORDS SUMMARY | 2025-07-17 17:58 | XMS_ITS | Patient Health Record ---
Author Organization [facility] Address [address] [place] [address] Care Team Providers Care Ethics Manager Name Role Phone Jennifer Parikh MD Primary Care Provider Rowdy Kelley [phone] Allergies No Known Allergies Reason For Referral No Information Medications Medication SIG (Take, Route, Frequency, Duration) Notes Start Date End Date Status Metoprolol Succinate ER 25 MG TAKE 1 TABLET BY MOUTH DAILY Oral; Duration: 90 Active Potassium Citrate ER 10 MEQ (1080 MG) Oral; Duration: 90 Active Vitamin B 12 Active Calcium + D 500-1000-40 MG-UNT-MCG Orally Twice a day Active Milk Thistle Active Vitamin B6 Active Immunizations Vaccine Route Administration Date Status Comme nts Influenza Unknown 07/02/2021 Administered Problems Problem Type SNOMED Code ICD Code Onset Dates Problem Status W/U Status Risk Notes Problem Ileostomy present (707589672) 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) Active confirmed Problem Chronic hepatitis C (836691604) Chronic hepatitis C without hepatic coma (B18.2) Active confirmed Problem Abnormal findings diagnostic imaging of liver and biliary tract (938472375) Abnormal liver ultrasound (R93.2) Active confirmed Problem History of hepatitis C (34286672252018 ) History of hepatitis C (Z86.19) Active confirmed Problem Hepatic fibrosis (disorder) (55202028) Liver fibrosis (K74.00) Active confirmed Plan Of [...] Insured Coverage Start Date Coverage End Date [facility] [address] [place], [place] [id number] [phone] [id number] HALLIE JOENS Self - patient is the insured Medical [...] is aware of this finding hemophilia Denies [place],DM,CVA,Lung disease,renal dise ase Kidney stones he had [...]
== END 2025-07-17 15:33 | disposition home or self-care (01) ==
LOC: HO.HMCH 14:17
PROVIDERS: PCP Internal Medicine; Visit Provider Internal Medicine
DX: I48.91 Unspecified atrial fibrillation (principal); S32.029A Unspecified fracture of second lumbar vertebra, initial encounter for closed fracture; E66.9 Obesity, unspecified; Z68.34 Body mass index [BMI] 34.0-34.9, adult; I73.9 Peripheral vascular disease, unspecified; E78.00 Pure hypercholesterolemia, unspecified; K76.0 Fatty (change of) liver, not elsewhere classified; N40.0 Benign prostatic hyperplasia without lower urinary tract symptoms; Z23 Encounter for immunization

== ENCOUNTER → 2025-07-17 14:17 | Outpatient (BNVA) | payer MEDICARE, BC, SELFPAY | PROVIDERS: PCP Internal Medicine; Visit Provider Internal Medicine | DX: K76.0 Fatty (change of) liver, not elsewhere classified (principal); I48.91 Unspecified atrial fibrillation; I73.9 Peripheral vascular disease, unspecified; E78.00 Pure hypercholesterolemia, unspecified; E66.9 Obesity, unspecified; N40.0 Benign prostatic hyperplasia without lower urinary tract symptoms; M10.9 Gout, unspecified; S32.029A Unspecified fracture of second lumbar vertebra, initial encounter for closed fracture; Z87.442 Personal history of urinary calculi; Z86.2 Personal history of diseases of the blood and blood-forming organs and certain disorders involving the immune mechanism; Z23 Encounter for immunization; Z68.34 Body mass index [BMI] 34.0-34.9, adult | CPT/HCPCS: 90471; 90656; 96127; 99212 ==

== ENCOUNTER 2025-07-28 08:28 | Outpatient (AMB) | payer MEDICARE, BC, SELFPAY ==
--- NOTE | 2025-07-28 08:33 | A.OFFVIS_ITS ---
Intake Visit Reasons: 6 month f/u Accompanied by: Spouse Allergies No Known Allergies Allergy (Verified 07/28/25 08:38) Medication List - Last Reconciled 07/28/25 by Valerie Banuelos CNP aspirin 81 mg PO DAILY calcium carbonate-vitamin D3 600 mg-5 mcg (200 unit) (Calcium 600 + D(3)) 1 tab PO DAILY cyanocobalamin (vitamin B-12) 1,000 mcg PO DAILY dronedarone (Multaq) 400 mg PO BID finasteride 5 mg PO DAILY 90 days folic acid 1 mg PO DAILY gabapentin 300 mg PO DAILY midodrine 2.5 mg PO TID PRN nystatin 1 appl topical DAILY PRN oxycodone-acetaminophen 5-325 mg (Percocet) 1 tab PO BID PRN 30 days potassium citrate ER 20 mEq (2 x 10 mEq (1,080 mg)) PO DAILY@1700 90 days pyridoxine (vitamin B6) 100 mg PO DAILY 90 days sertraline 25 mg PO DAILY simvastatin 5 mg PO BEDTIME tizanidine 4 mg PO BEDTIME PRN walker As directed HPI Comments Details: 74-year-old left-handed man with REM sleep behavior disorder and peripheral neuropathy. He was doing normal. He was taking gabapentin at bedtime. Nighttime symptoms were better with medication. No medication side effects. Sleep was okay. He was walking with cane, no falls. [facility] Medical History L2 vertebral fracture CKD (chronic kidney disease) stage 3, GFR 30-59 ml/min Hemophilia A Dyspnea on exertion Weakness Atrial flutter with rapid ventricular response LACY (acute kidney injury) Atrial fibrillation with rapid ventricular response Back pain Bilateral kidney stones Ileostomy in place Lymphangitis Edema of lower extremity Parastomal hernia Obesity (BMI 30-39.9) Nocturnal hypoxemia Restrictive lung disease Essential hypertension Hemophilia Loja cyst Renal stones History of cataract BPH (benign prostatic hyperplasia) Gout Crohn's disease Peripheral vascular disease Thrombocytopenia History of hepatitis C Cholelithiasis Osteopenia Surgical History S/P colectomy Status post ablation of incompetent vein using laser (01/13/23) H/O tooth extraction History of appendectomy History of urethral stent History of cataract surgery H/O wrist surgery Family History Father Prostate cancer Mother Diabetes Maternal Grandfather Factor VIII deficiency hemophilia Social History Household Members: Spouse Household Members Other:: 1 Housing: House Are you a primary neonatal intensive care nurse to a significant other at home: No Do you presently have visiting nurse or other home services: No Alcohol intake: current Alcohol intake frequency: does not drink Alcohol type: beer Comment: no camera space available. Pt remains calm and cooperative, not impulsive Patient Tobacco Use Status: Never used Tobacco Tobacco use type: Cigarette e-Cigarette/Vaping Use: Never Used Second Hand Smoke Exposure: No service: No Current occupational status: retired Cognitive needs: No Hearing needs: No Vision needs: Yes Review of Systems Const Denies chills, Denies daytime sleepiness, Denies difficulty sleeping, Denies fatigue, Denies fever(s), Denies frequent falls, Denies headache(s), Denies increased appetite, Denies poor appetite, Denies snoring, Denies weakness, Denies weight gain and Denies weight loss Eyes Denies loss of vision ENT Denies vertigo, Denies dizziness and Denies headache(s) Card Denies chest pain at rest, Denies chest pain with activity, Denies syncope, Denies leg edema and Denies palpitations Resp Denies snoring GI Denies constipation, Denies heartburn, Denies diarrhea and Denies nausea Denies urinary frequency, Denies urinary incontinence and Denies urinary urgency Musc Reports abnormal gait (balance difficulty), Denies numbness and Denies tingling Skin/Breast Denies dry skin and Denies rash Neuro Reports abnormal gait (balance difficulty), Denies vertigo, Denies dizziness, Denies syncope, Denies frequent falls, Denies headache(s), Denies lack of coordination, Denies loss of vision, Denies memory loss, Denies numbness, Denies restless legs, Denies seizure-like activity, Denies tingling, Denies paresthesias, Denies tremor(s) and Denies weakness Psych Denies anxiety, Denies depression, Denies auditory hallucinations, Denies memory loss, Denies visual hallucinations and Denies suicidal ideation Endo Denies fatigue and Denies palpitations Physical Exam Const Other: General Appearance:? normal, in no acute distress. Skin:? no rashes, no significant birthmarks. Heart:? S1, S2 normal, no murmurs. Lungs:? clear anteriorly and posteriorly. Extremities:? no edema. Psych:? alert, oriented, cognitive function intact, cooperative with exam. Neuro Other: Mental Status:?Alert and awake with normal spontaneity of speech fluency comprehension and affect. Cranial Nerves:?Pupils are equal, round and reactive to light. External occular muscles are intact. Visual mccallum are full. Face is symmetrical. Facial sensations are normal. Tongue is midline. Palate elevates symmetrically. Shoulder shrugging is normal. Hearing to bedside conversation is normal. Sensory Exam:?....? Coordination:?No ataxia,?no titubation.? Gait Exam: Slightly widened base and cautious with cane. Cerebellar Signs:?[id number] with bilateral tremor. Extrapyramidal System:?No tremor, rigidity with normal facial expressions.? Pronator Drift:?Not present.? Involuntary Movements:?Mild bilateral hand postural tremor.? Speech:?Normal.? Results Reviewed Results Reviewed: NCV/EMG LE at office in Oct 2024: Moderately severe axonal sensory and motor peripheral neuropathy CT brain WO at [facility] in Jun 2024: Mild to mod diff atrophy Assessment & Plan Assessment & Plan (1) REM sleep behavior disorder: Code(s): G47.52 - REM sleep behavior disorder Category: Medical Plan: Continue gabapentin 300mg 1 capsule at bedtime. (2) Tremor: Code(s): R25.1 - Tremor, unspecified Category: Medical (3) Peripheral neuropathy: Code(s): G62.9 - Polyneuropathy, unspecified Category: Medical Qualifiers: Peripheral neuropathy type: polyneuropathy, unspecified Qualified Code(s): G62.9 - Polyneuropathy, unspecified (4) Multifactorial gait disorder: Code(s): R26.89 - Other abnormalities of gait and mobility Category: Medical (5) Ataxia: Code(s): R27.0 - Ataxia, unspecified Category: Medical (6) H/O alcohol abuse: Code(s): F10.11 - Alcohol abuse, in remission Category: Medical Plan . Medications: Changed From gabapentin 300 mg PO DAILY To gabapentin 300 mg PO BEDTIME 90 caps 1RF 90 days Coding Level of Care Code Est Pt Level 4 (29558) Diagnoses REM sleep behavior disorder G47.52 Tremor R25.1 Peripheral polyneuropathy G62.9 Peripheral neuropathy type: polyneuropathy, unspecified Multifactorial gait disorder R26.89 Ataxia R27.0 H/O alcohol abuse F10.11
--- OUTSIDE RECORDS SUMMARY | 2025-07-28 08:47 | XMS_ITS | Patient Health Record ---
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) Active confirmed Problem Chronic hepatitis C (440630599) Chronic hepatitis C without hepatic coma (B18.2) Active confirmed Problem Abnormal findings diagnostic imaging of liver and biliary tract (443203223) Abnormal liver ultrasound (R93.2) Active confirmed Problem History of hepatitis C (66956217640857 ) History of hepatitis C (Z86.19) Active confirmed Problem Hepatic fibrosis (disorder) (29612163) Liver fibrosis (K74.00) Active confirmed Plan Of [...] Insured Coverage Start Date Coverage End Date [facility] [address] [place], [place] [id number] HALLIE JONES Self - patient is the [...]
== END 2025-07-28 08:45 | disposition home or self-care (01) ==
LOC: HO.HSM 08:29
PROVIDERS: PCP Internal Medicine; Referring Provider Internal Medicine; Visit Provider Registered Nurse
DX: G47.52 REM sleep behavior disorder (principal); R25.1 Tremor, unspecified; G62.9 Polyneuropathy, unspecified; R26.89 Other abnormalities of gait and mobility; R27.0 Ataxia, unspecified; F10.11 Alcohol abuse, in remission
CPT/HCPCS: 99214

== ENCOUNTER → 2025-07-28 08:28 | Outpatient (BNVA) | payer MEDICARE, BC, SELFPAY | PROVIDERS: PCP Internal Medicine; Referring Provider Internal Medicine; Visit Provider Registered Nurse | DX: G47.52 REM sleep behavior disorder (principal); G62.9 Polyneuropathy, unspecified; R26.89 Other abnormalities of gait and mobility; R25.1 Tremor, unspecified; F10.11 Alcohol abuse, in remission | CPT/HCPCS: 99212 ==

== ENCOUNTER 2025-09-18 14:17 | Outpatient (REF) | payer MEDICARE, BC, SELFPAY ==
--- NOTE | ~2025-09-18 | XR_ITS ---
EXAMINATION: XR ABDOMEN KUB CLINICAL INDICATION: N40.0 - Benign prostatic hyperplasia without lower urinary tract symptoms COMPARISON: 08/12/2024 CT TECHNIQUE: AP view of the abdomen. FINDINGS: The lumbar spine demonstrates moderate degenerative changes with levoscoliosis. There is gas or air in the stomach. There is minimal gas in small and large bowel. 7 x 13 mm calcification projects over the lower pole left kidney. Two 7 mm calcifications project over the mid right kidney and a more linear calcification projects in the lower pole. 3 Surgical clips and a curvilinear metallic wire project over the region of the pubic symphysis. XR/XR KUB IMPRESSION: Bilateral kidney stones. The largest is in the lower pole of the left kidney. Electronically signed by: Hugo Mcdaniel MD 09/18/2025 02:52 PM KYM DONOVAN
[2025-09-18 16:42] LABS: Appearance Urine Cloudy; Glucose Urine UA Negative (Negative); PH 5.5 (5.0-9.0); Specific Gravity - Urine 1.020 (1.005-1.025); UMIC TRIGGER UA YES
--- OUTSIDE RECORDS SUMMARY | 2025-09-18 18:31 | XMS_ITS | Data Portability ---
Author Organization [facility], [facility], Patient Home Address [address] [place] [address] Care Team Providers Care Special Education Resource Room Teacher Name Role Phone SHANTHI PINEDA Primary Care Provider [phone] SHANTHI PINEDA Referring Provider [phone] Assessment No assessment recorded. Plan of Treatment Reminders Order Date Submit Date Provider Last Modified By Organization Details Last Modified Time Details Appointments None recorded. Lab drug screen, urine 2024 025 [email or web address] Main Office, [address] [place] [address], [phone], 11:29:50 Referral None recorded. Procedures None recorded. Surgeries None recorded. Imaging None recorded. Medication Orders Percocet 5 mg-325 mg tablet 2024 025 [id number], [address] [place], [place], [phone], 11:29:57 Narcan 4 mg/actuati on nasal spray 2024 025 [id number], [address], [place], [phone], 5 05:01:23 Patient Targets Encounter Date Encounter Id Patient Goals Patient Target Last Modified By Organization Details Last Modified Time 05/29/2025 [id number] terminal operator goal of Pain Scale Not available Not available Not available [facility]DC goal of Weight 175 lbs Not available Not available Not available decrease pain increase activities improve quality of life weight reduction [email or web address] Not available 05/29/2025 11:52:55 Patient Instructions Encounter Date Encounter Id Patient Instructions Last Modified By Organization Details Last Modified Time 05/29/2025 [id number] Continue conservative treatment Continue home exercises as [...] NG/mL >=100 NONE DETEC ALHAJI Not Available [facility] [address] [place] [address], [address], 06/02/2025 12:04:57 05/29/2005/31/2025 [facility] alcohol metabolites ur ql cfm >=200 NG/mL >=200 POSIT STEPHAN Not Available [facility] [address] [place] [address], [place], [address], 06/02/2025 12:04:57 05/29/2005/31/2025 [facility] ethyl sulfate ur cfm-mcnc 4337 NG/mL >=200 POSIT STEPHAN Not Available [facility] [address] [place] [address], [place], [address], 06/02/2025 12:04:57 05/29/2005/31/2025 [facility] creat ur-mcnc 191.9 mg/dL 20 - 370 SHANDRA L Creat inine and pH are perfo rmed for speci men valid ity and not diagn ostic purpo ses. Not Available [facility] [address] [place], [address], 06/02/2025 12:04:57 05/29/20 25 05/31/2025 [facility] pH ur 4.99 4.5 - 9.0 SHANDRA L Creat inine and pH are perfo rmed for speci men valid ity and not diagn ostic purpo ses. Not Available [facility] [address] [facility], [place], [address], 06/02/2025 12:04:57 05/29/2006/02/2025 [facility] ethyl sulfate ur CMP 4337 NG/mL >=200 PRESE NT: Test resul t is consi stent with alcoh ol expos ure withi n 72 hours of speci men colle ction . For addit ional infor jayme n, plejaden e consu lt the [facility] Team at [phone] or email [email or web address]. Not Available [facility] [address] [facility], [place], [address], 06/02/2025 12:04:57 05/29/2006/02/2025 [facility] biodetect EXPECT ED Test resul t is consi stent with routi sarabjit ron zed human urine . Not Available [facility] [address] [facility], [place], [address], 06/02/2025 12:04:57 Result Notes None recorded. Problems Name Problem SNOMED Code Status Onset Date Resolution Date Notes Provider Name and Address Organization Details Recorded Time Essential hypertension 49750176 Active 2024 Kevin quintero null, [place] - [facility], [facility] 10:53:51 Atrial fibrillation 24596825 Active 2024 Kevin Yap-Love crowderon null, [place] - [facility], [facility] 10:53:58 Hypercholestero lemia 69735621 Active 2024 Kevin Yap-Love crowderon null, [place] - [facility], [facility] 10:54:07 Problem Notes None recorded. Procedures Surgical History Date Name Laterality Status Provider Name and Address Organization Details Recorded Time endoscopic biopsy of large intestine completed Lynne Judd [facility], [facility] 05/29/2025 10:45:57 biopsy of rectum completed Lynne [facility], [facility] 05/29/2025 10:46:04 colonoscopy completed Lynne [facility], [facility] 05/29/2025 10:46:14 operative procedure on wrist completed Lynne [facility], [facility] 05/29/2025 10:46:49 Imaging Results None recorded. Procedure [...] (BMI) Body weight Respiratory rate Oxygen saturation Heart rate Systolic And Diastolic Provider Name and Address Organization Details Last Updated DateTime 5 97.6 [degF] 182.88 cm 29.2 kg/m2 32317.3 6 g 18 /min 97 % 89 /min 133/80 mm[Hg] Lynne Judd [facility], [facility] 10:49:17 Social History Question Answer Notes LastModified by Organizat ion Details LastModified Time Tobacco Smoking Status Former Smoker Lynne dubose [facility], [facility] 05/29/2025 10:45:21 Are You Blind Or Do You Have Difficulty Seeing? No [email or web address] Information n ot available 05/29/2025 What Is Your Level Of Caffeine Consumption? Moderate [email or web address] Information not available 05/29/2025 In The 14 Days Before Symptom Onset, Have You Had Close Contact With A Laboratory-confirm ed COVID-19 While That Case Was Ill? No [email or web address] Information n ot available 05/29/2025 In The 14 Days Before Symptom Onset, Have You Had Close Contact With A Person Who Is Under Investigation For COVID-19 While That Person Was Ill? No [email or web address] Information not available 05/29/2025 Have You Been To An Area Known To Be High Risk For COVID-19? No [email or web address] Information not available 05/29/2025 Are You Deaf Or Do You Have Serious Difficulty Hearing? No Information not available 05/29/2025 What Type Of Diet Are You Following? REGULAR Information n ot available 05/29/2025 Which Of Your Hands Is Dominant? Left Information n ot available 05/29/2025 Do You Have Difficulty Walking Or Climbing Stairs? Yes [email or web address] Information not available 05/29/2025 Sex: Unknown Functional Status Question Answer Note LastModified by Organizat ion Details LastModified Time Do you use any illicit or recreational drugs? No [email or web address] Information not available 05/29/2025 Do you or have you ever used any other forms of tobacco or nicotine? No [email or web address] Information not available 05/29/2025 What is your level of alcohol consumption? None [email or web address] Information not available 05/29/2025 Are you currently employed? No [email or web address] Information not available 05/29/2025 Are you able to walk independently without assistance or assistive devices? YESASSIST [email or web address] Information not available 05/29/2025 Do you have difficulty doing errands alone? Yes [email or web address] Information not available 05/29/2025 Do you have difficulty dressing, bathing, grooming, or toileting? No Information not available 05/29/2025 Mental Status Question Answer Note LastModified by Organizat ion Details LastModified Time Do you feel stressed (tense, restless, nervous, or anxious, or unable to sleep at night)? SM4903-3 [email or web address] Information not available 05/29/2025 Do you have difficulty concentrating, remembering or making decisions? No [email or web address] Information no t available 05/29/2025 Family History Nothing Reported. Medical History Condition Response Coronary Artery Disease N Gout N Hernia Y Head Trauma/Injury N Thyroid Problems N Depression N COPD N Anemia N Heart Attack (MS) N Ulcers N Diabetes N Anxiety Disorder N Bleeding Disorder Y Arthritis N Tuberculosis N AIDS/HIV N Acid Reflux (GERD) N Cancer N Stroke N Asthma N Substance Abuse N Back Injury Y High Cholesterol N Hepatitis Y Liver Disease N Heart Disease N Headaches N Fibromyalgia N Hypertension N Osteoporosis N Kidney Disease N Past Encounters Encounter ID Performer Location Encounter Start Date Encounter Closed Date Diagnosis/Indication Diagnosis SNOMED-CT Code Diagnosis ICD10 Code Diagnosis IMO Codes Diagnosis Note [id number] Matt Borjas MD Main Office [address] [facility] [place] [address] 05/29/2025 10:12:55 05/29/2025 11:55:21 Long-term current use of opiate analgesic drug 3139763470 12570 Z79.264 1261911 Chronic pr imary low back pain 9382133803 7100 M54.59 G89.29 [id number] patient was advised not to drink alcohol [...] understand ing. Compressio n fracture of L2 5655731389 4560392 S32.020D [id number] home exercise programWei ght reduction programFol low-up with spine surgeon Lumbosacra l spondylosis without myelopathy 52746404 M47.817 [id number] home exercise programWei ght reduction programPla n in the future for bilateral lumbar facet RFR Spinal april nosis in cervical region 67150782 M48.02 [id number] follow-up with a spine surgeon Health Concerns Section Related Observation LastModified by Organization Detai ls LastModified Time None Recorded Concern Status LastModified by Organization Details LastModified Time None Recorded Advance Directives Directive None Recorded Payers Insurance Date Sequence Insurance Name Policy Number Policy Sierra Covered Member ID Sierra Member ID Guarantor Name 06/24/2025 1 [place]: [employer] Dirk Rosado [id number] Dirk Rosado 06/23/2025 2 [place] Nguyễn Rosado [id number] Dirk Rosado Notes Date Note Type Note [...] the patient in detail. Matt Borjas MD [address] [place] [address],[address], [place], [address], [facility], [facility] 05/29/2025 11:54:43
--- OUTSIDE RECORDS SUMMARY | 2025-09-18 18:31 | XMS_ITS | Patient Health Record ---
Author Organization [facility] Address [address] [place] [address] Care Team Providers Care Veterinary Manager Name Role Phone Jennifer Parikh MD Primary Care Provider Rowdy Kelley [phone] Allergies No Known Allergies Reason For Referral No Information Medications Medication SIG (Take, Route, Frequency, Duration) Notes Start Date End Date Status Metoprolol Succinate ER 25 MG Tablet Extended Release 24 Hour TAKE 1 TABLET BY MOUTH DAILY Oral; Duration: 90 Active Potassium Citrate ER 10 MEQ (1080 MG) Tablet Extended Release Oral; Duration: 90 Activ e Vitamin B 12 Active Calcium + D 500-1000-40 MG-UNT-MCG Tablet Chewable Orally Twice a day Active Milk Thistle Active Vitamin B6 Active Immunizations Vaccine Route Administration Date Status Comme nts Influenza Unknown 07/02/2021 Administered Social History Social History Additional Details Category Social Info Options Details Miscellaneous: Marital status: Occupation: Retired from the [employer] Section Notes: Nonsmoker; having 1-2 drinks per month-cut down from daily alcohol in 2003 Nonsmoker; having 1-2 drinks per month-cut down from daily alcohol in 2003 Nonsmoker; having 1-2 drinks per month-cut down from daily alcohol in 2003 Nonsmoker; having 1-2 drinks per month-cut down from daily alcohol in 2003 Nonsmoker; having 1-2 drinks per month-cut down from daily alcohol in 2003 Nonsmoker; having 1-2 drinks per month-cut down from daily alcohol in 2003 Nonsmoker; having 1-2 drinks per month-cut down from daily alcohol in 2003 Problems Problem Type SNOMED Code ICD Code Onset Dates Problem Status W/U Status Risk Notes Problem Ileostomy present (931398485) 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) Active confirmed Problem Chronic hepatitis C (560871526) Chronic hepatitis C without hepatic coma (B18.2) Active confirmed Problem Abnormal findings diagnostic imaging of liver and biliary tract (363117216) Abnormal liver ultrasound (R93.2) Active confirmed Problem History of hepatitis C (79632487354950 ) History of hepatitis C (Z86.19) Active confirmed Problem Hepatic fibrosis (disorder) (39988659) Liver fibrosis (K74.00) Active confirmed Plan Of Treatment Pending Test Test Name Order Date BUN 12/09/2021 LIVER PROFILE 07/15/2015 LIVER PROFILE 02/11/2015 LIVER PROFILE 03/21/2015 LIVER PROFILE 09/06/2015 CBC w DIFF 03/21/2015 CBC w DIFF 09/06/2015 CBC w DIFF 02/11/2015 ALPHA-FETOPROTEIN,TUMOR MARKER 2 ALPHA-FETOPROTEIN,TUMOR MARKER 5 HEPATITIS C VIRAL LOAD 09/06/2015 HEPATITIS C VIRAL LOAD 02/11/2015 HEPATITIS C VIRAL LOAD 10/27/2021 HEPATITIS C VIRAL LOAD 07/15/2015 HEPATITIS C VIRAL LOAD 03/21/2015 MRI ABD W&WO CONTRAST 12/09/2021 US ABD 11/06/2021 Creatinine 12/09/2021 Insurance Providers Payer Name Payer Address Payer Phone Subscriber Number Group Number Insured Name Patient Relationship to Insured Coverage Start Date Coverage End Date [facility] [address] [place], [place] [id number] HALLIE JONES Self - patient is the [...] is aware of this finding hemophilia Denies CA,DM,CVA,Lung disease,renal dise ase Kidney stones he had [...]
== END 2025-09-18 14:18 | disposition home or self-care (01) ==
LOC: HO.XRAY 14:17
PROVIDERS: PCP Internal Medicine; Visit Provider Urology
DX: N40.0 Benign prostatic hyperplasia without lower urinary tract symptoms (principal); N20.0 Calculus of kidney
CPT/HCPCS: 74018; 81001; 87086; 88112

== ENCOUNTER → 2025-09-18 14:37 | Outpatient (BNV) | payer MEDICARE, BC, SELFPAY | PROVIDERS: PCP Internal Medicine; Visit Provider Radiology Diagnostic Radiology | DX: N40.0 Benign prostatic hyperplasia without lower urinary tract symptoms (principal); N20.0 Calculus of kidney | CPT/HCPCS: 74018 ==

== ENCOUNTER 2025-09-23 13:44 | Outpatient (AMB) | payer MEDICARE, BC, SELFPAY ==
--- NOTE | 2025-09-23 13:44 | A.OFFVIS_ITS ---
Intake Visit Reasons: discuss procedure/KUB SET Intake Note: Patient is present for follow up Procedure discussion c/o flank pain Urology Medication:POTASSIUM CITRATE,FINASTERIDE,,VITAMIN B6 Antibiotic Allergy:NONE Blood Thinner:ASPIRIN XRAY KUB 09/18/25 labs: Cytology 09/19/25 Primer Expeditor And Drier Required: No Accompanied by: Self / Same As Patient Allergies No Known Allergies Allergy (Verified 09/23/25 15:25) HPI Comments Details: Dirk is very pleasant male. He is a patient of Dr. Parikh. He seen for the following urologic conditions - renal stones - lower urinary tract symptoms Telemedicine Evaluation 15 min Consultation [employer] [place] Video Six-month follow-up Having issues with pain on left side Presumed secondary to stones Previously had to reduce potassium citrate by Nephrology We will try and schedule ureteroscopy Lower urinary tract symptoms currently managed with finasteride alone Nephrolithiasis managed with potassium citrate - dose decreased to 2 tabs daily with Nephrology Recent imaging shows stone on right but other stones seemed to be resolved Last PSA 12/22 1.6 - and he is repeating every 2 years Lower urinary tract symptoms Initial symptom presentation - Nocturia x3, Weakness of stream, Progressive Prior medications include tamsulosin, terazosin Current medications finasteride alone. Was taken off alpha-arya after fall Nephrolithiasis/Urolithiasis: Secondary to Crohn's Remain on potassium citrate with vitamin B6 They are here for further evaluation of nephrolithiasis. Urolithiasis was diagnosed [facility] [place] with right flank pain. The patient previously had kidney stones whose composition w 10/21 uric acid 80% CaOx 20%. Laboratory investigations include 11/21 , Hyperuricemia, borderline high calcium. Prior treatment(s) include Typically has had stones every 15-20 years starting in early 1970s 10/21 , right, ureteroscopy - distal. Prior imaging includes 03/20 , a CT (computed tomography) scan of the abdomen/pelvis (stone protocol) - multiple 2 mm stones on right side, distal right ureteric stone with hydroureteronephrosis, left 2-3 cm cyst 04/19 , a renal ultrasound, showing no evidence of stones - left 2-3 cm cyst, prostate 70 g 09/19 , a CT (computed tomography) scan of the abdomen/pelvis (stone protocol) - 5mm distal right stone with mild hydro 10/21 multiple right 5mm stones on US - 09/20 multiple right stones on ultrasound - 04/21 renal u/s minimal stone on right, left clear - 11/23 renal ultrasound no evidence of renal stones, hepatic steatosis - 05/23 renal ultrasound 9 mm right, 4 mm left, cyst on left kidney - 09/23 CT scan with multiple stones bilateral - 12/23 renal ultrasound shows resolution of stones on left side - 08/25 CT scan small stone left side 2 mm Current therapeutic plan - continue with fluid intake PFSH Medical History L2 vertebral fracture CKD (chronic kidney disease) stage 3, GFR 30-59 ml/min Hemophilia A Dyspnea on exertion Weakness Atrial flutter with rapid ventricular response LACY (acute kidney injury) Atrial fibrillation with rapid ventricular response Back pain Bilateral kidney stones Ileostomy in place Lymphangitis Edema of lower extremity Parastomal hernia Obesity (BMI 30-39.9) Nocturnal hypoxemia Restrictive lung disease Essential hypertension Hemophilia Loja cyst Renal stones History of cataract BPH (benign prostatic hyperplasia) Gout Crohn's disease Peripheral vascular disease Thrombocytopenia History of hepatitis C Cholelithiasis Osteopenia Surgical History S/P colectomy Status post ablation of incompetent vein using laser (01/13/23) H/O tooth extraction History of appendectomy History of urethral stent History of cataract surgery H/O wrist surgery Family History Father Prostate cancer Mother Diabetes Maternal Grandfather Factor VIII deficiency hemophilia Social History Household Members: Spouse Household Members Other:: 1 Housing: House Are you a primary career development specialist to a significant other at home: No Do you presently have visiting nurse or other home services: No Alcohol intake: current Alcohol intake frequency: does not drink Alcohol type: beer Comment: no camera space available. Pt remains calm and cooperative, not impulsive Patient Tobacco Use Status: Never used Tobacco Tobacco use type: Cigarette e-Cigarette/Vaping Use: Never Used Second Hand Smoke Exposure: No service: No Current occupational status: retired Cognitive needs: No Hearing needs: No Vision needs: Yes Review of Systems Const All systems reviewed & are unremarkable except as noted in HPI and below Reports no additional complaints Resp Reports no additional complaints GI Reports no additional complaints Reports as per HPI Musc Reports no additional complaints Physical Exam Telemedicine evaluation Appropriate responses Regular breathing rate and rhythm HEENT Head: Yes normal to inspection Ears: hearing grossly normal bilaterally Eyes General: appearance normal, both eyes and all related structures Neck Neck: Yes normal visual inspection Chest Chest palpation & inspection: normal inspection of the chest Resp Effort & Inspection: normal respiratory effort and able to speak in complete sentences Telehealth Telehealth Telehealth Platform: [employer] Location of provider rendering services: practice address Location of patient: address on file Patient Identification confirmed using: Name, : Yes Telehealth method: video Patient verbally consented to treatment: Yes Patient verbally consented to billing insurance company: Yes Patient informed of any privacy concerns related to visit: Yes Minutes spent on Phone/Video with Pt.: 15 Assessment & Plan Assessment & Plan (1) Renal stones: Comment: Right renal calculi December 2018 uric acid stone October 2019 stable 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 While every effort has been made to ensure accuracy foundry melt supervisor errors may have been included. Imaging studies, laboratory and physical exam results were discussed and reviewed in detail. No major barriers to patient understanding were identified. An opportunity to ask questions regarding the treatment plan was provided. All questions were answered. The patient expressed understanding and agreement with the above treatment plan. The patient is aware they should contact our office by phone for worsening of their current condition or the appearance of new urologic symptoms. Compliance is encouraged with any medications and followup testing that is ordered. It is a privilege to participate in the urologic care of your patient. If you have any questions or concerns regarding treatment for the above conditions, or other urologic issues, please do not hesitate to contact me. The office telephone contact is [phone]. Sincerely, Dr Armani Rose MD, JENN[facility] - Urology Compassionate Specialist Care for the Genitourinary System Coding Level of Care Code Tele Est Pt Level 4 (95979) Diagnoses Renal stones N20.0 BPH (benign prostatic hyperplasia) N40.0
--- OUTSIDE RECORDS SUMMARY | 2025-09-23 14:55 | XMS_ITS | Patient Health Record ---
Author Organization [facility] Address [address] [place] [address] Care Team Providers Care [employer] Net Software Developer Name Role Phone Jennifer Parikh MD Primary Care Provider Rowdy Kelley [phone] Allergies No Known Allergies Reason For Referral [...] W/U Status Risk Notes Problem Ileostomy present (877454025) 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) Active confirmed Problem Chronic hepatitis C (425825931) Chronic hepatitis C without hepatic coma (B18.2) Active confirmed Problem Abnormal findings diagnostic imaging of liver and biliary tract (129470322) Abnormal liver ultrasound (R93.2) Active confirmed Problem History of hepatitis C (62925115605670 ) History of hepatitis C (Z86.19) Active confirmed Problem Hepatic fibrosis (disorder) (34855994) Liver fibrosis (K74.00) Active confirmed Plan Of [...] Insured Coverage Start Date Coverage End Date [facility] [address] [place], [place] [id number] HALLIE JONES Self - patient is the [...] is aware of this finding hemophilia Denies NE,DM,CVA,Lung disease,renal dise ase Kidney stones he had [...]
== END 2025-09-23 15:40 | disposition home or self-care (01) ==
LOC: HO.HUSH 13:44
PROVIDERS: PCP Internal Medicine; Visit Provider Urology
DX: N20.0 Calculus of kidney (principal); N40.0 Benign prostatic hyperplasia without lower urinary tract symptoms
CPT/HCPCS: 99214

== ENCOUNTER 2025-09-23 14:55 | Inpatient (IN) | payer MEDICARE, BC, SELFPAY ==
--- NOTE | ~2025-09-23 | CT_ITS ---
CLINICAL HISTORY: danilo recent uretral stone CT abdomen and pelvis without contrast Comparison: 09/23/2025 Findings: There is bilateral lower lobe consolidation, possible pneumonia or atelectasis. There are gallstones with pericholecystic edema Solid organs are within normal limits. There are bilateral renal parenchymal calculi. There is a left ureteral stent in position with periureteral edema. There is no imaging findings to suggest stent malfunction. No bowel obstruction, pneumoperitoneum, or pneumatosis. Again noted is normal appearing loops of bowel extending into a right lateral abdominal wall hernia. Pelvic contents unremarkable. Normal appendix. The bones are intact. IMPRESSION: 1. Cholelithiasis with pericholecystic edema, possible cholecystitis. Clinical follow-up recommended. 2. Left ureteral stent in position with no imaging findings to suggest stent malfunction. 3. Bilateral lower lobe consolidation, differential considerations noted. This document has been electronically signed by: Duncan Vaca MD on 09/27/2025 12:32:28
--- NOTE | ~2025-09-23 | FL_ITS ---
EXAMINATION: FL GUIDANCE ONLY HISTORY: cysto, ureteroscopy, retro, laser, stent COMPARISON: Correlation is made with a CT of the abdomen and pelvis without contrast dated 09/23/2025. TECHNIQUE: Fluoroscopy time: 1 minute, 37 seconds. Cumulative Dose: 44.90 mGy. DAP: 9345.10 mGycm2 Images: 3. FINDINGS: Fluoroscopic spot films of the left abdomen demonstrate placement of a nephroureteral stent. FL/FL guidance in OR IMPRESSION: Fluoroscopy during procedure. Please see procedure report for additional information. Electronically signed by: Rowdy Higuera MD 09/24/2025 03:50 PM [facility]
--- NOTE | ~2025-09-23 | XR_ITS ---
CLINICAL HISTORY: foot pain 3 view right foot Comparison: None provided Findings: Multiple foci of erosion involving the head of the 1st metatarsal. No acute fracture. Chronic healed fractures of the 2nd, 3rd and 4th metatarsals. Osteopenia is present. Moderate hallux valgus with bunion formation. Mild arthritic change. No ankle effusion. No radiopaque foreign body. There are severe peripheral vascular calcifications. There is edema of the soft tissues. IMPRESSION: 1. Multiple foci of erosion involving the head of the 1st metatarsal likely secondary to gout. 2. Moderate hallux valgus with bunion formation. This document has been electronically signed by: Nicole Rubalcava MD on 09/27/2025 15:36:23
--- NOTE | ~2025-09-23 | XR_ITS ---
CLINICAL HISTORY: knee pain 4 view right knee Comparison: None provided Findings: No acute fracture. No dislocation. There is osteopenia. There are mild arthritic changes. There is a large knee effusion. No radiopaque foreign body. There are severe vascular calcifications. IMPRESSION: There is a large knee effusion. This document has been electronically signed by: Nicole Rubalcava MD on 09/27/2025 15:49:47
--- NOTE | ~2025-09-23 | US_ITS ---
EXAMINATION: US RETROPERITONEAL LIMITED (RENAL ONLY) CLINICAL INFORMATION: Worsening LACY. COMPARISON: CT abdomen and pelvis exam 09/23/2025 TECHNIQUE: Routine grayscale imaging of kidneys is performed. FINDINGS: RIGHT KIDNEY: 10.0 x 5.7 x 6.2 cm (SAG x AP x TRV). The kidney is normal in size, contour, and echogenicity. Renal cortical thickness is normal. There are clustered echogenic stones in the upper pole measuring 1.3 x 0.5 x 1.0 cm and 0.7 x 0.6 x 0.5 cm. Mid pole echogenic stone measures 1.2 x 0.7 x 0.7 cm. of. No hydronephrosis. LEFT KIDNEY: 12.7 x 5.8 x 5.3 cm (SAG x AP x TRV). The kidney is normal in size, contour, and echogenicity. Renal cortical thickness is normal. No echogenic calculi seen. There is a complex anechoic cyst with rim calcification in mid pole measuring 2.3 x 2.8 x 2.7 cm. There is no evidence of hydronephrosis. US/US renal BI IMPRESSION: Clustered echogenic calculi without caliectasis or hydronephrosis in the upper and mid pole right kidney. Complex Bosniak type II cyst mid pole left kidney. On previous CT abdomen pelvic exam image was reported as simple cyst .. Electronically signed by: Tu Beverly MD 09/26/2025 02:03 PM [facility]
--- NOTE | ~2025-09-23 | MR_ITS ---
CLINICAL HISTORY: abnormal compression fx, CT scan prior MR lumbar spine without gadolinium Comparison: CT abdomen pelvis earlier the same day. Findings: No scoliosis. The spinal cord ends at the level of L1. 70% decrease in vertebral body height at L2 secondary to a severe compression fracture. 7 mm retropulsion causes moderate spinal canal narrowing at this level. No significant neural foraminal narrowing for the bilateral exiting nerves. STIR hyperintensity within the adjacent disc spaces and prevertebral region suggests acute/subacute etiology. 50% decreased vertebral body height at T12, favored to be chronic. Facet arthropathy from L2 to S1, worst at L5-S1. Right paracentral disc protrusion at L4-L5 creates mass effect on the right transversing nerves at this level and moderate spinal canal narrowing. Moderate diffuse atrophy of the paraspinal musculature. IMPRESSION: Compression deformity of the L2 vertebral body with 70% height loss. STIR hyperintensity of the adjacent disc spaces and prevertebral soft tissues suggests an acute/subacute timeline. 7 mm retropulsion causes moderate spinal canal narrowing at this level. Degenerative changes at L4-L5 cause moderate spinal canal narrowing. Additional chronic findings as detailed above. This document has been electronically signed by: Sobia Almazan MD on 09/23/2025 21:48:38
--- NOTE | ~2025-09-23 | CT_ITS ---
CLINICAL HISTORY: Left flank pain hematuria CT abdomen and pelvis without contrast Comparison: CT/SR - CT ABDOMEN PELVIS WITHOUT IV CONTRAST - 08/12/24 00:43 EST Absence of IV contrast limits evaluation of the organs and vasculature. Findings: Lung bases: Bilateral pleural thickening. Coronary artery calcifications. Liver: No focal lesions. No biliary ductal dilatation. Gallbladder: Distended gallbladder with cholelithiasis. Spleen: Normal. Pancreas: Stranding adjacent to the pancreatic tail, likely reactive to the left kidney process. Adrenal glands: No nodules. Kidneys: Left perinephric and periureteral stranding. 1.6 cm stone in the left renal pelvis causes mild fullness of the left collecting system. Punctate stone within the distal left ureter (7, 42).Bilateral nonobstructing renal stones. The largest measures 1.1 cm in the upper right kidney. Simple renal cyst in the interpolar left kidney. Pelvic organs: Normal. Peritoneum and Gastrointestinal: Colectomy. Right midabdomen ostomy. Large right parastomal hernia. No bowel obstruction, pneumoperitoneum, or ascites. Lymph nodes: Multiple prominent portacaval lymph nodes measuring up to 1.1 cm ( 4:190 ). 1.2 cm left iliac lymph node (4:488) is unchanged compared to prior exam. These are likely reactive. Vessels: Atherosclerosis. Bones and soft tissues: New severe compression deformity at L2 vertebral body with 7 mm retropulsion into the spinal canal and 70% height loss. 40% height loss of the T12 vertebral body similar to prior exam. IMPRESSION: 1.6 cm stone in the left renal pelvis causing mild fullness of the collecting system. Punctate stone in the distal left ureter. Left perinephric and periureteral stranding is likely reactive. Infection should be excluded clinically. Mild left hydroureter with tortuous appearance distally. While these findings may be reactive to renal/ureteral stones, a urology follow-up is recommended to rule out underlying pathology. New severe compression deformity of L2 with 7 mm retropulsion into the spinal canal. Multiple adjacent foci of gas and mild prevertebral edema. Consider a dedicated lumbar spine MRI for further characterization. Cholelithiasis. Large peristomal hernia. This document has been electronically signed by: Sobia Almazan MD on 09/23/2025 19:33:46
[2025-09-23 15:24] VITALS: BP 133/71; PULSE 75; RESP 20; TEMP 36.3; O2SAT 96; BMI 31.4
--- NOTE | 2025-09-23 15:30 | ED_ITS ---
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 He is able to urinate. He states he feels he has a kidney stone. He has not had any fevers. He denies any issues with his ostomy MD complaint: Flank pain, hematuria Onset (ago): day(s) (1) Location: back and abdomen Radiation: back Severity: severe Quality: stabbing Pain Consistency: constant Relieving factors: none Exacerbating factors: none Associated symptoms: denies other symptoms Treatments prior to arrival: none Related Data Home Medications ?Medication ?Instructions ?Recorded ?Confirmed calcium 600 mg (as 1 tab PO DAILY 08/03/2009/02 carbonate)-vitamin D3 5 mcg (200 unit) tablet (Calcium 600 + D(3)) nystatin 100,000 unit/gram topical 1 appl topical CORI Y PRN Skin 08/04/22 09/24/25 powder Irritation cyanocobalamin (vitamin B-12) 1,000 mcg PO DAILY 06/2909/24/25 1,000 mcg tablet milk thistle 150 mg capsule 300 mg PO DAILY 09/24/25 1 11/25/24 Previous Rx's ?Medication ?Instructions ?Recorded pyridoxine (vitamin B6) 100 mg 100 mg PO DAILY 90 days #90 tabs 06/17/22 tablet aspirin 81 mg chewable tablet 81 mg PO DAILY #30 tabs 08/21/23 walker #1 ea 07/01/24 simvastatin 5 mg tablet 5 mg PO BEDTIME #30 tabs finasteride 5 mg tablet 5 mg PO DAILY 90 days #90 ta bs 03/04/25 potassium citrate 10 mEq (1,080 20 meq (2 x 10 mEq (1, 080 mg)) PO 03/04/25 mg) tablet,extended release DAILY@1700 90 days #180 ta bs sertraline 25 mg tablet 25 mg PO DAILY #90 tabs 06/02 10/26 folic acid 1 mg tablet 1 mg PO DAILY #30 tabs 06/13 midodrine 2.5 mg tablet 2.5 mg PO TID PRN hypotensio n #90 08/07/25 tabs oxycodone-acetaminophen 5 mg-325 1 tab PO BID PRN pain 30 days #60 08/27/25 mg tablet (Percocet) tabs dronedarone 400 mg tablet (Multaq) 400 mg PO BID #180 tabs 09/08/25 gabapentin 300 mg capsule 300 mg PO BEDTIME 90 days #9 0 caps 09/16/25 Allergies Allergy/AdvReac Type Severity Reaction Status Date / Time No Known Allergies Allergy Verified 09/23/25 15:25 Review of Systems 2 Review of Systems: Yes all other systems are reviewed and are negative [facility] Past Medical History Attestation statement: The following information was validated with the patient. Source: old records reviewed Medical History L2 vertebral fracture CKD (chronic kidney disease) stage 3, GFR 30-59 ml/min Hemophilia A Dyspnea on exertion Weakness Atrial flutter with rapid ventricular response LACY (acute kidney injury) Atrial fibrillation with rapid ventricular response Back pain Bilateral kidney stones Ileostomy in place Lymphangitis Edema of lower extremity Parastomal hernia Obesity (BMI 30-39.9) Nocturnal hypoxemia Restrictive lung disease Essential hypertension Hemophilia Loja cyst Renal stones History of cataract BPH (benign prostatic hyperplasia) Gout Crohn's disease Peripheral vascular disease Thrombocytopenia History of hepatitis C Cholelithiasis Osteopenia Surgical History S/P colectomy Status post ablation of incompetent vein using laser (01/13/23) H/O tooth extraction History of appendectomy History of urethral stent History of cataract surgery H/O wrist surgery Family History Family History Father Prostate cancer Mother Diabetes Maternal Grandfather Factor VIII deficiency hemophilia Social History Social History Household Members: Spouse Household Members Other:: 1 Housing: House Are you a primary career services representative to a significant other at home: No Do you presently have visiting nurse or other home services: No Alcohol intake: current Alcohol intake frequency: does not drink Alcohol type: beer Comment: no camera space available. Pt remains calm and cooperative, not impulsive Patient Tobacco Use Status: Never used Tobacco Tobacco use type: Cigarette e-Cigarette/Vaping Use: Never Used Second Hand Smoke Exposure: No service: No Current occupational status: retired Cognitive needs: No Hearing needs: No Vision needs: Yes Physical Exam ED Vital Signs: Vital Signs - 24 hr 09/23/25 15:24 09/23/25 17:39 09/23/25 18:00 Temperature 97.4 F 98.2 F Pulse Rate 75 67 Respiratory Rate 20 15 Blood Pressure 133/71 154/60 H Pulse Oximetry 96 96 Oxygen Delivery Method Room Air Room Air 09/23/25 20:00 09/23/25 21:55 Temperature 98.5 F 98.4 F Pulse Rate 82 89 Respiratory Rate Blood Pressure 141/64 H 114/59 L Pulse Oximetry 94 96 Oxygen Delivery Method Room Air Room Air BMI result Body Mass Index 31.4 Appearance: Alert. Oriented X3. No acute distress. Eyes: Pupils equal, round and reactive to light. ENT: Pharynx normal. Bruise to right cheekbone Neck: Normal inspection. Neck supple. CVS: Normal heart rate and rhythm. Pulses normal. Respiratory: No respiratory distress. Breath sounds normal. Abdomen: Soft and nontender. Ostomy is productive he has multiple abdominal scars from prior surgery Skin: Skin warm and dry. Normal skin color. Normal skin turgor. Extremities: No lower extremity edema. Neuro: Oriented X 3. No motor deficit. No sensory deficit. CN2-12 intact Course Course Course Narrative: RME: 75-year-old male presents to the ED for left-sided flank pain with painful urination. Patient states history of kidney stones. Patient states nausea. Labs UA ordered. Reevaluation(s) Reevaluation #1: 7:51 PM 09/23/2025 (KUMAR MERA): MRI ordered for the L2 compression fracture. He has no neurologic symptoms. He has no abnormal urine to suggest a UTI. Reevaluation #2: 8:40 PM 09/23/2025 (KUMAR MERA): Patient states that he fell about 2 weeks ago never sought care I can see on the CT scans from 2023 this wire that they are reporting I have been going back and forth with MRI to get imaging given the retropulsion though he has no neuro findings and there is prior compression fracture in this area not sure if he worsened it after the fall 2 weeks ago. I do not think this area is a contraindication to getting MRI. It has been 2 weeks I do not think he has any compromise and needs any emergent neurosurgical intervention at this time but I would like advanced imaging of the area. 9:57 PM 09/23/2025 (KUMAR MERA): At this time his injury was over 2 weeks ago he has retropulsion but he is neurologically intact has no cauda equina is moving legs absolutely normal he has I am in complaining of significant pain in the area I do not think he warrants any neurosurgical intervention at this time 10:26 PM 09/23/2025 (KUMAR MERA): After extensive review this L2 fracture is not new he had a burst fracture of the same area with findings back in 2023 I can see this on CT scans and x-ray Medications Administered Generic Name Dose Route Start Last Admin Trade Name Freq PRN Reason Stop Dose Admin Acetaminophen 650 mg 09/23/25 23:48 09/24/25 08:25 Acetaminophen 325 Mg Tablet PO 650 mg Q6H PRN Administration Pain, Mild 1-3,fever,headache Hydromorphone HCl 0.5 mg 09/24/25 00:14 09/24/25 10:30 Hydromorphone Hcl 1 Mg/Ml Syringe IVPUSH 0.5 mg Q4H PRN Administration Pain, Severe (Pain Scale 7-10) Protocol Lactated Ringer's 1,000 mls @ 100 mls/hr 09/23/25 23:45 09/24/25 10:32 Lr IVCONT 100 mls/hr .Q10H FRACISCO Administration Oxycodone HCl 5 mg 09/24/25 00:14 09/24/25 08:25 Oxycodone Hcl Immed Release 5 Mg Tablet PO 5 mg Q6H PRN Administration Pain, Moderate(Pain Scale 4-6) Sodium Chloride 3 ml 09/24/25 00:00 09/24/25 07:19 0.9 % Sodium Chloride Flush 3 Ml Syringe IVFLUSH Not Given QSHIFT FRACISCO Discontinued Medications Generic Name Dose Route Start Last Admin Trade Name Sapphire PRN Reason Stop Dose Admin Lactated Ringer's 1,000 mls @ 999 mls/hr 09/23/25 17:22 09/23/25 18:29 Lr IV 09/23/25 18:22 Infused .Q1H1M ONE Infusion Midodrine 2.5 mg 09/24/25 00:19 09/24/25 00:39 Midodrine Hcl 2.5 Mg Tablet PO 09/24/25 00:20 2.5 mg ONCE STA Administration Morphine Sulfate 4 mg 09/23/25 17:22 09/23/25 17:39 Morphine Sulfate 4 Mg/Ml Cartridge IVPUSH 09/23/25 17:23 4 mg ONCE ONE Administration Protocol Morphine Sulfate 4 mg 09/23/25 22:06 09/23/25 22:21 Morphine Sulfate 4 Mg/Ml Cartridge IVPUSH 09/23/25 22:07 4 mg ONCE ONE Administration Protocol Ondansetron HCl 4 mg 09/23/25 17:39 09/23/25 17:54 Ondansetron Hcl 4 Mg/2 Ml Vial IVPUSH 09/23/25 17:40 Not Given ONCE ONE Medical Decision Making Medical Decision Making MDM Narrative: 75-year-old male with past medical history of atrial arrhythmia, BPH, 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 He has stable vital signs he is not hemorrhaging any blood from his meatus. At this time I am going to obtain basic labs, urine, start on IV morphine for pain, CT scan for renal colic. I will discuss with Urology as he states Dr. Rose sent him and told him he needed to be admitted. Differential Diagnosis Differential Diagnoses: The differential diagnosis associated with the presentation includes LACY, hematuria, renal colic, renal cysts Admission/Observation Consideration of admission/observation: Escalation of care including admission/observation considered Given the obstructing stone he should be admitted to the hospital but he has a new L2 compression fracture that needs MRI for Consult Healthcare Provider Management of the patient was discussed with: Record Keeper (Dr. Sanchez aware, Dr. Rose to be notified in AM - keep NPO) Lab Data MDM Lab Attestation statement: I reviewed the patient's lab results. 09/24/25 05:59 09/24/25 05:59 Labs: Lab Results 09/23/25 09/23/25 Range/Units 15:52 17:38 WBC 11.4 H (4.8-10.8) X10*3/uL RBC 4.26 L (4.60-5.80) X10*6/uL Hgb 12.8 L (14.0-18.0) g/dl Hct 39.0 L (42.0-52.0) % MCV 91.5 (80.0-98.0) fL MCH 30.0 (27.0-33.0) pg MCHC 32.8 (31.0-36.0) g/dl RDW 14.8 (11.0-16.0) % Plt Count 189 (160-400) X10*3/uL MPV 9.3 L (9.4-12.4) fL Immature Gran % (Auto) 0.4 (0.0-0.4) % Neut % (Auto) 70.6 (45-73) % Lymph % (Auto) 20.2 (20-40) % [place] % (Auto) 7.7 (2-11) % Eos % (Auto) 0.8 (0-4) % Baso % (Auto) 0.3 (0-2) % Lymph # (Auto) 2.3 (1.2-4.9) X10*3/uL [place] # (Auto) 0.9 (0.1-1.2) X10*3/uL Eos # (Auto) 0.1 (0.0-0.4) X10*3/uL Baso # (Auto) 0.0 (0.0-0.2) X10*3/uL Abs Immat Gran (auto) 0.05 H (0.00-0.03) X10*3/uL Absolute Neuts (auto) 8.0 (2.0-8.3) x10*3/uL Absolute Nucleated RBC 0.000 (0.0-0.012) X10*3/uL Nucleated RBC % (auto) 0.0 (0.0-0.2) /100WBC Sodium 138 (135-145) mmol/L Potassium 4.2 (3.3-5.1) mmol/L Chloride 111 H (96-108) mmol/L Carbon Dioxide 18 L (22-29) mmol/L Anion Gap 13 (12-20) BUN 21 H (9-16) mg/dL Creatinine 1.78 H (0.5-1.4) mg/dL Estim Creat Clear Calc 44.2 Estimated GFR 38 Random Glucose 93 (60-115) mg/dL Calcium 9.6 (8.4-10.2) mg/dL Total Bilirubin 0.9 (0.0-1.0) mg/dL AST 31 (5-37) U/L ALT 34 (0-40) U/L Alkaline Phosphatase 78 (39-117) U/L Total Protein 7.2 (6.5-8.0) g/dL Albumin 4.3 (3.5-5.0) g/dL Lipase 28 (8-78) U/L Urine Color Yellow Urine Appearance Clear Urine pH 5.0 (5.0-9.0) Ur Specific [place] 1.015 (1.005-1.025) Urine Protein Negative (Neg-Trace) mg/dL Urine Glucose (UA) Negative (Negative) mg/dL Urine Ketones Negative (Negative) mg/dL Urine Blood Large (3+) H (Negative) Urine Nitrite Negative (Negative) Ur Leukocyte Esterase Trace H (Negative) Urine RBC 6-10 H (0-2) /HPF Urine WBC 0-5 (0-5) /HPF Ur Squamous Epith Cells 3-5 (0-2) /HPF Urine Bacteria None Seen (None Seen) Hyaline Casts 0-2 (0-2) /LPF Independent Interpretation I performed an independent interpretation of an: EKG, CT Scan (Obstructing left- sided stone) and MRI (Similar finding) Interpretation: Rate: 71 Rhythm: Normal sinus rhythm with PAC Conifer: Left Normal P waves. Normal KRISTIAN. Normal QRS complex. ST T wave : Inverted T-waves V1 otherwise no ST elevation or acute ischemia qTC: 458 prior studies: No acute ischemia The study has been interpreted contemporaneously by me. . Radiology Impression Discussion of test interpretation with radiology: I have reviewed the radiologist's reading. Independent Historian Clinical information obtained from an independent historian. History obtained from or confirmed by: Spouse External Record Review External record reviewed: Inpatient record, Outpatient record, Prior outpatient labs and Prior outpatient radiology Discharge Plan Discharge Clinical Impression: Acute flank pain, Ureterolithiasis, Renal colic on left side Hematuria Qualifiers: Hematuria type: gross Qualified Code(s): R31.0 - Gross hematuria Closed compression fracture of L2 vertebra Qualifiers: Encounter type: initial encounter Qualified Code(s): S32.020A - Wedge compression fracture of second lumbar vertebra, initial encounter for closed fracture Patient Disposition: Admitted As Inpatient Interventions: Admission Worksheet (ED) Last Done: 09/24/25 01:16 Discharge Date/Time: 09/24/25 02:17
[2025-09-23 15:57] LABS: MANUAL DIFF FLAG NO
[2025-09-23 15:58] LABS: Hematocrit 39.0 % (42.0-52.0); Hemoglobin 12.8 g/dl (14.0-18.0); Imm Gran Abs Auto 0.05 X10*3/uL (0.00-0.03); Imm Gran Pct Auto 0.4 % (0.0-0.4); Lymphocytes Absolute Auto 2.3 X10*3/uL (1.2-4.9); Mean Corpuscular HGB Conc 32.8 g/dl (31.0-36.0); Mean Corpuscular Hemoglobin 30.0 pg (27.0-33.0); Mean Corpuscular Volume 91.5 fL (80.0-98.0); NRBC Abs Auto 0.000 X10*3/uL (0.0-0.012); NRBC Pct Auto 0.0 /100WBC (0.0-0.2); Platelet Count 189 X10*3/uL (160-400); Red Blood Count 4.26 X10*6/uL (4.60-5.80); White Blood Count 11.4 X10*3/uL (4.8-10.8)
[2025-09-23 16:14] LABS: Alanine Aminotransferase 34 U/L (0-40); Albumin Level 4.3 g/dL (3.5-5.0); Alkaline Phosphatase 78 U/L (39-117); Anion Gap 13 (12-20); Aspartate Amino Transferase 31 U/L (5-37); Blood Urea Nitrogen 21 mg/dL (9-16); Calcium 9.6 mg/dL (8.4-10.2); Carbon Dioxide 18 mmol/L (22-29); Chloride 111 mmol/L (96-108); Creatinine Clr Calc Pharmacy 44.2; Estimated Glomerular Filt Rate 38; Lipase 28 U/L (8-78); Potassium 4.2 mmol/L (3.3-5.1); Sodium 138 mmol/L (135-145); Total Protein 7.2 g/dL (6.5-8.0)
--- OUTSIDE RECORDS SUMMARY | 2025-09-23 17:12 | XMS_ITS | Data Portability ---
Author Organization [facility], [facility], Patient Home Address [address] [place] [id number] Care Team Providers Care Study Assistant Name Role Phone SHANTHI PINEDA Primary Care Provider POSHANTHI Referring Provider Assessment No assessment recorded. Plan of Treatment Reminders Order Date Submit Date Provider Last Modified By Organization Details Last Modified Time Details Appointments None recorded. Lab drug screen, urine 2024 025 dmousad Main Office, [address] [place] [address], [phone], 11:29:50 Referral None recorded. Procedures None recorded. Surgeries None recorded. Imaging None recorded. 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 of Pain Scale Not available Not available Not available [facility] goal of Weight 175 lbs Not available Not available Not available decrease pain increase activities improve quality of life weight reduction [email or web address] Not available 05/29/2025 11:52:55 Patient Instructions Encounter Date Encounter Id Patient Instructions Last Modified By Organization Details Last Modified Time 05/29/2025 [id number] Continue conservative treatment Continue home exercises as [...] NG/mL >=100 NONE DETEC ALHAJI Not Available [facility] [address] [place] [address], [address], 06/02/2025 12:04:57 05/29/2005/31/2025 [facility] alcohol metabolites ur ql cfm >=200 NG/mL >=200 POSIT STEPHAN Not Available [facility] [address] [place] [address], [place], [address], 06/02/2025 12:04:57 05/29/2005/31/2025 [facility] ethyl sulfate ur cfm-mcnc 4337 NG/mL >=200 POSIT STEPHAN Not Available [facility] [address] [place] [address], [place], [address], 06/02/2025 12:04:57 05/29/2005/31/2025 [facility] creat ur-mcnc 191.9 mg/dL 20 - 370 SHANDRA L Creat inine and pH are perfo rmed for speci men valid ity and not diagn ostic purpo ses. Not Available [facility] [address] [place], [address], 06/02/2025 12:04:57 05/29/20 25 05/31/2025 [facility] pH ur 4.99 4.5 - 9.0 SHANDRA L Creat inine and pH are perfo rmed for speci men valid ity and not diagn ostic purpo ses. Not Available [facility] [address] [facility], [place], [address], 06/02/2025 12:04:57 05/29/2006/02/2025 [facility] ethyl sulfate ur CMP 4337 NG/mL >=200 PRESE NT: Test resul t is consi stent with alcoh ol expos ure withi n 72 hours of speci men colle ction . For addit ional infor jayme n, plejaden e consu lt the [facility] Team at [phone] or email [email or web address]. Not Available [facility] [address] [facility], [place], [address], 06/02/2025 12:04:57 05/29/2006/02/2025 [facility] biodetect EXPECT ED Test resul t is consi stent with routi sarabjit ron zed human urine . Not Available [facility] [address] [facility], [place], [address], 06/02/2025 12:04:57 Result Notes None recorded. Problems Name Problem SNOMED Code Status Onset Date Resolution Date Notes Provider Name and Address Organization Details Recorded Time Essential hypertension 23681741 Active 2024 Kevin quintero null, [place] - [facility], [facility] 10:53:51 Atrial fibrillation 60680580 Active 2024 Kevin Yap-Love crowderon null, [place] - [facility], [facility] 10:53:58 Hypercholestero lemia 97356511 Active 2024 Kevin Yap-Love crowderon null, [place] - [facility], [facility] 10:54:07 Problem Notes None recorded. Procedures Surgical History Date Name Laterality Status Provider Name and Address Organization Details Recorded Time endoscopic biopsy of large intestine completed Lynne Judd [facility], [facility] 05/29/2025 10:45:57 biopsy of rectum completed Lynne [facility], [facility] 05/29/2025 10:46:04 colonoscopy completed Lynne [facility], [facility] 05/29/2025 10:46:14 operative procedure on wrist completed Lynne [facility], [facility] 05/29/2025 10:46:49 Imaging Results None recorded. Procedure [...] 5 97.6 [degF] 182.88 cm 29.2 kg/m2 41138.3 6 g 18 /min 97 % 89 /min 133/80 mm[Hg] Lynne Judd [facility], [facility] 10:49:17 Social History Question Answer Notes LastModified by Organizat ion Details LastModified Time Tobacco Smoking Status Former Smoker Lynne dubose [facility], [facility] 05/29/2025 10:45:21 Are You Blind Or Do You Have Difficulty Seeing? No [email or web address] Information n ot available 05/29/2025 What Is Your Level Of Caffeine Consumption? Moderate [email or web address] Information not available 05/29/2025 In The 14 Days Before Symptom Onset, Have You Had Close Contact With A Laboratory-confirm ed COVID-19 While That Case Was Ill? No [email or web address] Information n ot available 05/29/2025 In The 14 Days Before Symptom Onset, Have You Had Close Contact With A Person Who Is Under Investigation For COVID-19 While That Person Was Ill? No [email or web address] Information not available 05/29/2025 Have You Been To An Area Known To Be High Risk For COVID-19? No Information not available 05/29/2025 Are You Deaf Or Do You Have Serious Difficulty Hearing? No [email or web address] Information not available 05/29/2025 What Type Of Diet Are You Following? REGULAR [email or web address] Information n ot available 05/29/2025 Which Of Your Hands Is Dominant? Left Information n ot available 05/29/2025 Do You Have Difficulty Walking Or Climbing Stairs? Yes [email or web address] Information not available 05/29/2025 Sex: Unknown Functional Status Question Answer Note LastModified by Organizat ion Details LastModified Time Do you use any illicit or recreational drugs? No [email or web address] Information not available 05/29/2025 Do you or have you ever used any other forms of tobacco or nicotine? No [email or web address] Information not available 05/29/2025 What is your level of alcohol consumption? None [email or web address] Information not available 05/29/2025 Are you currently employed? No Information not available 05/29/2025 Are you able to walk independently without assistance or assistive devices? YESASSIST [email or web address] Information not available 05/29/2025 Do you have difficulty doing errands alone? Yes [email or web address] Information not available 05/29/2025 Do you have difficulty dressing, bathing, grooming, or toileting? No Information not available 05/29/2025 Mental Status Question Answer Note LastModified by Organizat ion Details LastModified Time Do you feel stressed (tense, restless, nervous, or anxious, or unable to sleep at night)? [id number] [email or web address] Information not available 05/29/2025 Do you have difficulty concentrating, remembering or making decisions? No [email or web address] Information no t available 05/29/2025 Family History Nothing Reported. Medical History Condition Response Coronary Artery Disease N Gout N Hernia Y Head Trauma/Injury N Thyroid Problems N COPD N Depression N Anemia N Ulcers N Heart Attack ([place]) N Anxiety Disorder N Diabetes N Bleeding [...] ICD10 Code Diagnosis IMO Codes Diagnosis Note [id number] Matt Borjas MD Main Office [address] [facility] [place] [address] 05/29/2025 10:12:55 05/29/2025 11:55:21 Long-term current use of opiate analgesic drug 5324222914 41132 Z79.354 [id number] Chronic pr imary low back pain 3682731104 7100 M54.59 G89.29 [id number] patient was advised not to drink alcohol [...] understand ing. Compressio n fracture of L2 [id number] S32.020D [id number] home exercise programWei ght reduction programFol low-up with spine surgeon Lumbosacra l spondylosis without myelopathy 59501046 M47.817 [id number] home exercise programWei ght reduction programPla n in the future for bilateral lumbar facet RFR Spinal april nosis in cervical region 34743133 M48.02 [id number] follow-up with a spine surgeon Health Concerns Section Related Observation LastModified by Organization Detai ls LastModified Time None Recorded Concern Status LastModified by Organization Details LastModified Time None Recorded Advance Directives Directive None Recorded Payers Insurance Date Sequence Insurance Name Policy Number Policy Sierra Covered Member ID Sierra Member ID Guarantor Name 06/24/2025 1 [place] [employer] Dirk Rosado [id number] Dirk Rosado 06/23/2025 2 [place] Nguyễn Rosado [id number] Dirk Rosado Notes Date Note Type Note [...] the patient in detail. Matt Borjas MD [address] [place] [address],[address], [place], [address], [facility], [facility] 05/29/2025 11:54:43
--- NOTE | 2025-09-23 17:22 | ECG_ITS ---
Test Reason : QTC Blood Pressure : */* mmHG Vent. Rate : 71 BPM Atrial Rate : 71 BPM P-R Int : 164 ms QRS Dur : 100 ms QT Int : 422 ms P-R-T Axes : 10 -26 18 degrees QTcB Int : 458 ms Sinus rhythm with Premature supraventricular complexes Incomplete right bundle branch block Borderline ECG When compared with ECG of 27-Aug-2024 12:25, Premature supraventricular complexes are now Present Referred By: Chyna Gaviria Electronically Signed By: MAYRA TORRES MD
[2025-09-23 17:39] VITALS: RESP 15
[2025-09-23] MEDS: Lactated Ringers 1,000 ML 999 ML IV (17:39)
[2025-09-23 17:45] LABS: Appearance Urine Clear; Glucose Urine UA Negative (Negative); PH 5.0 (5.0-9.0); Specific Gravity - Urine 1.015 (1.005-1.025); UMIC TRIGGER UACC YES
[2025-09-23 18:00] VITALS: BP 154/60; PULSE 67; TEMP 36.8; O2SAT 96
[2025-09-23 20:00] VITALS: BP 141/64; PULSE 82; TEMP 36.9; O2SAT 94
[2025-09-23 21:55] VITALS: BP 114/59; PULSE 89; TEMP 36.9; O2SAT 96
[2025-09-24] VITALS (13 sets, daily range): BP systolic 139–166; BP diastolic 67–84; PULSE 72–96; RESP 13–27; TEMP 36.1–37.1; O2SAT 94–98; BMI 32.1
--- NOTE | 2025-09-24 00:12 | P.HPHOSP_ITS ---
History of Present Illness Date of Service: 09/23/25 Attending physician on admission: Colette Hwang Chief Complaint: Blood in urine Dirk Rosado is a 75 years old man with past medical history significant for hemophilia A, BPH, nephrolithiasis (uric acid requiring urological procedure in the past by Dr. Rose), thrombocytopenia, orthostatic hypotension, chronic back pain due to fracture of L2 vertebrae, a flutter on Multaq -not on anticoagulants due to hemophilia but does take baby aspirin, CKD stage III, Crohn's disease status post ileostomy, BPH, hyperlipidemia and depression presents to the emergency department complaining of one-week history of blood urine. Today he started to experience left back pain without radiations. He also has been nauseous and dry heaving. He denied headache, dizziness, fever, chills, chest pain, shortness on breath or cough. He denied alcohol abuse, tobacco smoking or illicit drug use. In the ED, he was found to have stable vital signs. Blood workup showed leukocytosis of 11.4. Hemoglobin is 12.8 and platelets 189. There are no significant electrolyte imbalances except for hyperchloremia 111 CO2 of 18. Anion gap is normal. BUN is 21 and creatinine 1.78. LFTs are normal. UA showed blood 3+, trace leukocyte steroids, bacteria none seen and RBC 6-10. Abdominal pelvis CT scan showed 1.6 cm stone in the left renal pelvic calcium and fullness of the collecting system, punctuated stone in the distal left ureter, left perinephric and periureteral stranding likely reactive and mild left hydroureter with tortuous appearance distally. New severe compression deformity of the L2 with 7 mm retropulsion into the spinal canal, cholelithiasis and large periosteal hernia. Lumbar MRI showed compression deformity of the L2 vertebral bodySTIR hyperintensity of the adjacent disc spaces and prevertebral soft tissues suggests an acute/subacute timeline. 7 mm retropulsion causes moderate spinal canal narrowing at this level. ED Tx: Morphine 8 mg total IV, LR 1 L bolus Review of Systems 2 Review of Systems: All 12 systems were reviewed and normal except as noted in HPI. [facility] Medical History L2 vertebral fracture CKD (chronic kidney disease) stage 3, GFR 30-59 ml/min Hemophilia A Dyspnea on exertion Weakness Atrial flutter with rapid ventricular response LACY (acute kidney injury) Atrial fibrillation with rapid ventricular response Back pain Bilateral kidney stones Ileostomy in place Lymphangitis Edema of lower extremity Parastomal hernia Obesity (BMI 30-39.9) Nocturnal hypoxemia Restrictive lung disease Essential hypertension Hemophilia Loja cyst Renal stones History of cataract BPH (benign prostatic hyperplasia) Gout Crohn's disease Peripheral vascular disease Thrombocytopenia History of hepatitis C Cholelithiasis Osteopenia Family History Father Prostate cancer Mother Diabetes Maternal Grandfather Factor VIII deficiency hemophilia Surgical History S/P colectomy Status post ablation of incompetent vein using laser (01/13/23) H/O tooth extraction History of appendectomy History of urethral stent History of cataract surgery H/O wrist surgery Social History Household Members: Spouse Household Members Other:: 1 Housing: House Are you a primary care transition manager to a significant other at home: No Do you presently have visiting nurse or other home services: No Alcohol intake: current Alcohol intake frequency: does not drink Alcohol type: beer Comment: no camera space available. Pt remains calm and cooperative, not impulsive Patient Tobacco Use Status: Never used Tobacco Tobacco use type: Cigarette Smoked in Last 30 Days: No e-Cigarette/Vaping Use: Never Used Second Hand Smoke Exposure: No Use of substances other than those prescribed or required for medical reasons: No Advance Directives: No Advance Directives Information Provided: No service: No Current occupational status: retired Cognitive needs: No Hearing needs: No Vision needs: Yes Meds Allergies Allergy/AdvReac Type Severity Reaction Status Date / Time No Known Allergies Allergy Verified 09/23/25 15:25 Active Medications: Current Medications Acetaminophen (Acetaminophen 325 Mg Tablet) 650 mg PO Q6H PRN PRN Reason: Pain, Mild 1-3,fever,headache Calcium Carbonate (Calcium Carbonate 750 Mg Tab.Chew) 750 mg PO Q4H PRN PRN Reason: Heartburn Lactated Ringer's (Lr) 1,000 mls @ 100 mls/hr IVCONT .Q10H [facility] Magnesium Hydroxide (Milk Of Magnesia 30 Ml Oral.Susp) 30 ml PO DAILY PRN PRN Reason: Constipation Melatonin (Melatonin 3 Mg Tablet) 6 mg PO BEDTIME PRN PRN Reason: Insomnia Sodium Chloride (0.9 % Sodium Chloride Flush 3 Ml Syringe) 3 ml IVFLUSH QSHIFT [facility] Home Medications ?Medication ?Instructions ?Recorded ?Confirmed ?Last Taken ?Type calcium 600 mg (as 1 tab PO DAILY 08/03/2005/0206/28/24 History carbonate)-vitamin D3 5 mcg (200 unit) tablet (Calcium 600 + D(3)) nystatin 100,000 unit/gram topical 1 appl topical CORI Y PRN Skin 08/04/22 05/20/25 Unknown History powder Irritation cyanocobalamin (vitamin B-12) 1,000 mcg PO DAILY 06/2905/20/25 06/28/24 History 1,000 mcg tablet Physical Exam 2 Vital Signs and Narrative: Vital Signs: Last Vital Signs Temp 98.4 F 09/23/25 21:55 Pulse 89 09/23/25 21:55 Resp 15 09/23/25 17:39 BP 114/59 L 09/23/25 21:55 Pulse Ox 96 09/23/25 21:55 O2 Del Method Room Air 09/23/25 21:55 BMI result Body Mass Index 31.4 General: Alert, oriented, in no acute distress. Well nourished and cooperative. Afebrile. HEENT: Head normocephalic, atraumatic. PER, EOMI. Sclerae anicteric, conjunctiva clear. Oropharynx without erythema or exudate. Mucous membranes moist. Neck: Supple. Heart: RRR, no murmurs, rubs or gallops. Lungs: Clear to auscultation bilaterally. No wheezes, rales, or rhonchi. Normal respiratory effort. Abdomen: Multiple surgical scar, soft, non tenderness, nondistended, normoactive bowel sounds. Right CVA tenderness. Extremities: Bilateral lower extremity edema. Non tenderness. Musculoskeletal: Full range of motion. No joint swelling, deformity, or tenderness. Normal muscle tone and strength. Skin: Warm/Dry. No pallor. No jaundice. Neurologic: Alert & oriented x4. Moving all extremities spontaneously. Normal speech. Psychological: Normal mood and affect. Thought process coherent. Latest urine: Results Labs 09/23/25 15:52 09/23/25 15:52 Labs: Laboratory Results - last 24 hr 09/23/25 09/23/25 15:52 17:38 MCV 91.5 MCH 30.0 MCHC 32.8 RDW 14.8 Plt Count 189 MPV 9.3 L Immature Gran % (Auto) 0.4 Neut % (Auto) 70.6 Lymph % (Auto) 20.2 [place] % (Auto) 7.7 Eos % (Auto) 0.8 Baso % (Auto) 0.3 Lymph # (Auto) 2.3 [place] # (Auto) 0.9 Eos # (Auto) 0.1 Baso # (Auto) 0.0 Abs Immat Gran (auto) 0.05 H Absolute Neuts (auto) 8.0 Absolute Nucleated RBC 0.000 Nucleated RBC % (auto) 0.0 Anion Gap 13 Estim Creat Clear Calc 44.2 Estimated GFR 38 Random Glucose 93 Calcium 9.6 Total Bilirubin 0.9 AST 31 ALT 34 Alkaline Phosphatase 78 Total Protein 7.2 Albumin 4.3 Lipase 28 Urine Color Yellow Urine Appearance Clear Urine pH 5.0 Ur Specific [place] 1.015 Urine Protein Negative Urine Glucose (UA) Negative Urine Ketones Negative Urine Blood Large (3+) H Urine Nitrite Negative Ur Leukocyte Esterase Trace H Urine RBC 6-10 H Urine WBC 0-5 Ur Squamous Epith Cells 3-5 Urine Bacteria None Seen Hyaline Casts 0-2 Assessment and Plan (1) Hydronephrosis with renal and ureteral calculus obstruction: Status: Acute (2) Hematuria: Qualifiers: Hematuria type: gross Qualified Code(s): R31.0 - Gross hematuria Status: Acute Plan Dirk Rosado is a 75 y/o man with a PMHx significant for, nephrolithiasis (uric acid requiring urological procedure in the past by Dr. Rose) who presents with: Left obstructive renal calculus with left hydroureter causing hematuria (resolved, please see picture latest urine sample on PE). Hold aspirin. NPO. Continue IV fluids. Pain control with Dilaudid IV. Urology consult. Hematology consult as the patient might need urological procedure in the setting of hemophilia A. Factor VIII not available but cryoprecipitate to be considered if hematuria reoccur. Hemophilia A. No joint pains or muscle hematomas. Hx a-flutter. No anticoagulation due to history of hematuria. ECG today showed sinus rhythm Continue dronedarone. Aspirin hold due to recent events of hematuria. Orthostatic hypotension. Continue midodrine. Chronic back pain due to old L2 vertebrae fracture. Lumbar MRI done today showed no spinal cord compression. Continue oxycodone and gabapentin. Hyperlipidemia. Continue simvastatin. Depression. Continue sertraline. CKD stage 3B. There is associated normal anion gap metabolic acidosis and hyperchloremia; CO2 is 18. Will check venous pH. Continue IV fluids. BPH. Continue finasteride. Chronic anemia. Continue to monitor. Hx thrombocytopenia. Platelets are normal today. Continue to monitor. Crohn disease. Status post ileostomy. Has a paristomal hernia. Code status: Full DVT prophylaxis: SCDs only med rec pending Patient will need hospitalization for at least 2 midnights for left obstructive renal stone with left hydroureter and hematuria management with IV pain meds, IV fluids and evaluation by Urology Service for urological procedure. Quality Stroke Does the patient have a stroke diagnosis?: No VTE Prior VTE?: No VTE Risk Level:: Medical - moderate - high VTE Device Contraindication: N/A - Device Ordered VTE Drug Contraindication: Treatment Not Tolerated
[2025-09-24 00:20] LABS: Partial Thromboplastin Time 28.7 SEC (26.7-34.1)
[2025-09-24] MEDS: Lactated Ringers 1,000 ML 100 ML IVCONT ×2 (00:26→10:32)
[2025-09-24] MEDS: 0.9 % Sodium Chloride Flush 3 ML SYRINGE IVFLUSH (00:28)
[2025-09-24 06:07] LABS: MANUAL DIFF FLAG NO
[2025-09-24 06:08] LABS: Venous Blood Gas Refer to POC result
[2025-09-24 06:09] LABS: Hematocrit 33.8 % (42.0-52.0); Hemoglobin 11.2 g/dl (14.0-18.0); Imm Gran Abs Auto 0.03 X10*3/uL (0.00-0.03); Imm Gran Pct Auto 0.4 % (0.0-0.4); Lymphocytes Absolute Auto 2.8 X10*3/uL (1.2-4.9); Mean Corpuscular HGB Conc 33.1 g/dl (31.0-36.0); Mean Corpuscular Hemoglobin 30.3 pg (27.0-33.0); Mean Corpuscular Volume 91.4 fL (80.0-98.0); NRBC Abs Auto 0.000 X10*3/uL (0.0-0.012); NRBC Pct Auto 0.0 /100WBC (0.0-0.2); Platelet Count 145 X10*3/uL (160-400); Red Blood Count 3.70 X10*6/uL (4.60-5.80); White Blood Count 8.1 X10*3/uL (4.8-10.8)
[2025-09-24 06:11] LABS: VBG HCO3 21 mmol/L (22-26); VBG O2 % Saturation 90.0 %
[2025-09-24 06:23] LABS: Anion Gap 12 (12-20); Blood Urea Nitrogen 21 mg/dL (9-16); Calcium 9.0 mg/dL (8.4-10.2); Carbon Dioxide 21 mmol/L (22-29); Chloride 111 mmol/L (96-108); Creatinine Clr Calc Pharmacy 51.4; Estimated Glomerular Filt Rate 44; Potassium 4.0 mmol/L (3.3-5.1); Sodium 140 mmol/L (135-145)
--- NOTE | 2025-09-24 07:49 | PHA.MEDREC ---
Pharmacy Consult ? Medication Reconciliation Pharmacy has completed the medication reconciliation. Spoke with patient at bedside, her had a written list with him and confirmed he last took his meds yesterday morning.
[2025-09-24] MEDS: oxyCODONE HCl Immed Release 5 MG TABLET PO (08:25)
--- NOTE | 2025-09-24 09:18 | HO.ANESPROP2 ---
Documented by User: Candace Wells NP 09/24/25 09:23 HPI - Anesthesia Eval Consult details Narrative: 75 yr old male for left cystoscopy, ureteroroscopy, retro laser H/O atrial flutter: follows [facility] [place], last visit 05/2025 notes as follows -On Holter, he was mostly in sinus rhythm with a very small burden of probably atrial flutter with rapid rate. -Preserved LVEF on echocardiogram. -Beta-blockers have been stopped because of orthostatic hypotension/fall. 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 He did not follow through with the EP plan for ablation. -On Multaq Hemophilia On chronic opioids PMFSH Active Problems Active Problems: All Active Problems Hydronephrosis with renal and ureteral calculus obstruction (Acute) Closed compression fracture of L2 vertebra (Acute) Renal colic on left side (Acute) Ureterolithiasis (Acute) Acute flank pain (Acute) Hematuria (Acute) Urine abnormality (Acute) H/O alcohol abuse (Acute) Ataxia (Acute) Multifactorial gait disorder (Acute) Peripheral neuropathy (Acute) REM sleep behavior disorder (Acute) Cervical spinal stenosis (Acute) Chronic pain syndrome (Acute) L2 vertebral fracture (Acute) Orthostatic dizziness (Acute) Atrial flutter by electrocardiogram (Acute) Recurrent falls (Acute) Tremor (Acute) Lumbar stress fracture (Acute) Encounter for staple removal (Acute) Alcohol abuse (Acute) Thrombocytopenia (Acute) Generalized anxiety disorder (Acute) Folic acid deficiency (Acute) Hemophilia A (Chronic) Posterior neck pain (Acute) Atrial fibrillation (Acute) Diaphragmatic eventration (Acute) Peripheral vascular disease (Acute) Renal cyst, left (Acute) Hypercholesteremia (Acute) Lymphedema (Acute) Annual physical exam (Acute) PAD (peripheral artery disease) (Acute) Varicose veins of right lower extremity with inflammation (Acute) Night terrors (Acute) Fatty liver (Acute) Cholelithiasis (Acute) SVT (supraventricular tachycardia) (Acute) Annual physical exam (Acute) Ileostomy care (Acute) Annual physical exam (Acute) Incisional hernia (Acute) Nocturnal hypoxemia (Acute) Restrictive lung disease (Acute) Renal stones (Acute) Essential hypertension (Acute) Atrial arrhythmia (Acute) BPH (benign prostatic hyperplasia) (Acute) Gout (Acute) Obesity (BMI 30-39.9) (Acute) Past Medical History Medical History L2 vertebral fracture CKD (chronic kidney disease) stage 3, GFR 30-59 ml/min Hemophilia A Dyspnea on exertion Weakness Atrial flutter with rapid ventricular response LACY (acute kidney injury) Atrial fibrillation with rapid ventricular response Back pain Bilateral kidney stones Ileostomy in place Lymphangitis Edema of lower extremity Parastomal hernia Obesity (BMI 30-39.9) Nocturnal hypoxemia Restrictive lung disease Essential hypertension Hemophilia Loja cyst Renal stones History of cataract BPH (benign prostatic hyperplasia) Gout Crohn's disease Peripheral vascular disease Thrombocytopenia History of hepatitis C Cholelithiasis Osteopenia Family History Family History Father Prostate cancer Mother Diabetes Maternal Grandfather Factor VIII deficiency hemophilia Surgical History Surgical History S/P colectomy Status post ablation of incompetent vein using laser (01/13/23) H/O tooth extraction History of appendectomy History of urethral stent History of cataract surgery H/O wrist surgery Social History Social History Household Members: Spouse Household Members Other:: 1 Housing: House Are you a primary child caregiver private home to a significant other at home: No Do you presently have visiting nurse or other home services: No Alcohol intake: current Alcohol intake frequency: does not drink Alcohol type: beer Comment: no camera space available. Pt remains calm and cooperative, not impulsive Patient Tobacco Use Status: Never used Tobacco Tobacco use type: Cigarette e-Cigarette/Vaping Use: Never Used Second Hand Smoke Exposure: No service: No Current occupational status: retired Cognitive needs: No Hearing needs: No Vision needs: Yes Meds Allergies Allergy/AdvReac Type Severity Reaction Status Date / Time No Known Allergies Allergy Verified 09/23/25 15:25 Active Medications: Current Medications Acetaminophen (Acetaminophen 325 Mg Tablet) 650 mg PO Q6H PRN PRN Reason: Pain, Mild 1-3,fever,headache Last Admin: 09/24/25 08:25 Dose: 650 mg Calcium Carbonate (Calcium Carbonate 750 Mg Tab.Chew) 750 mg PO Q4H PRN PRN Reason: Heartburn Hydromorphone HCl (Hydromorphone Hcl 1 Mg/Ml Syringe) 0.5 mg IVPUSH Q4H PRN; Protocol PRN Reason: Pain, Severe (Pain Scale 7-10) Last Admin: 09/24/25 03:04 Dose: 0.5 mg Lactated Ringer's (Lr) 1,000 mls @ 100 mls/hr IVCONT .Q10H [facility] Last Admin: 09/24/25 00:26 Dose: 100 mls/hr Magnesium Hydroxide (Milk Of Magnesia 30 Ml Oral.Susp) 30 ml PO DAILY PRN PRN Reason: Constipation Melatonin (Melatonin 3 Mg Tablet) 6 mg PO BEDTIME PRN PRN Reason: Insomnia Oxycodone HCl (Oxycodone Hcl Immed Release 5 Mg Tablet) 5 mg PO Q6H PRN PRN Reason: Pain, Moderate(Pain Scale 4-6) Last Admin: 09/24/25 08:25 Dose: 5 mg Prochlorperazine Edisylate (Prochlorperazine Edisylate 10 Mg/2 Ml Vial) 5 mg IVPUSH Q6H PRN PRN Reason: Nausea and Vomiting Sodium Chloride (0.9 % Sodium Chloride Flush 3 Ml Syringe) 3 ml IVFLUSH QSHIFT [facility] Last Admin: 09/24/25 07:19 Dose: Not Given Home Medications ?Medication ?Instructions ?Recorded ?Confirmed ?Last Taken ?Type calcium 600 mg (as 1 tab PO DAILY 08/03/20 09/24/25 09/23/25 History carbonate)-vitamin D3 5 mcg (200 unit) tablet (Calcium 600 + D(3)) nystatin 100,000 unit/gram topical 1 appl topical DAILY PRN Skin 08/04/22 09/24/25 09/23/25 History powder Irritation cyanocobalamin (vitamin B-12) 1,000 mcg PO DAILY 06/29/24 09/24/25 09/23/25 History 1,000 mcg tablet milk thistle 150 mg capsule 300 mg PO DAILY 09/24/25 09/24/25 09/23/25 History Exam Height,Weight and Vital Signs: Height 5 ft 11 in Weight 104.4 kg Last Vital Signs Temp 98 F 09/24/25 06:50 Pulse 96 09/24/25 06:50 Resp 16 09/24/25 06:50 BP 160/80 H 09/24/25 06:50 Pulse Ox 95 09/24/25 06:50 O2 Del Method Room Air 09/24/25 06:50 Pertinent Lab Results Pertinent Lab Results: Laboratory Tests 09/23/25 09/23/25 09/24/25 15:52 17:38 00:03 WBC 11.4 H RBC 4.26 L Hgb 12.8 L Hct 39.0 L MCV 91.5 MCH 30.0 MCHC 32.8 RDW 14.8 Plt Count 189 MPV 9.3 L Immature Gran % (Auto) 0.4 Neut % (Auto) 70.6 Lymph % (Auto) 20.2 [place] % (Auto) 7.7 Eos % (Auto) 0.8 Baso % (Auto) 0.3 Lymph # (Auto) 2.3 [place] # (Auto) 0.9 Eos # (Auto) 0.1 Baso # (Auto) 0.0 Abs Immat Gran (auto) 0.05 H Absolute Neuts (auto) 8.0 Absolute Nucleated RBC 0.000 Nucleated RBC % (auto) 0.0 APTT 28.7 VBG pH VBG pCO2 VBG pO2 VBG HCO3 VBG O2 Saturation VBG Base Excess Sodium 138 Potassium 4.2 Chloride 111 H Carbon Dioxide 18 L Anion Gap 13 BUN 21 H Creatinine 1.78 H Estim Creat Clear Calc 44.2 Estimated GFR 38 Random Glucose 93 Calcium 9.6 Total Bilirubin 0.9 AST 31 ALT 34 Alkaline Phosphatase 78 Total Protein 7.2 Albumin 4.3 Lipase 28 Urine Color Yellow Urine Appearance Clear Urine pH 5.0 Ur Specific [place] 1.015 Urine Protein Negative Urine Glucose (UA) Negative Urine Ketones Negative Urine Blood Large (3+) H Urine Nitrite Negative Ur Leukocyte Esterase Trace H Urine RBC 6-10 H Urine WBC 0-5 Ur Squamous Epith Cells 3-5 Urine Bacteria None Seen Hyaline Casts 0-2 09/24/25 09/24/25 05:59 06:07 WBC 8.1 RBC 3.70 L Hgb 11.2 L Hct 33.8 L MCV 91.4 MCH 30.3 MCHC 33.1 RDW 14.9 Plt Count 145 L MPV 9.6 Immature Gran % (Auto) 0.4 Neut % (Auto) 53.1 Lymph % (Auto) 34.5 [place] % (Auto) 9.6 Eos % (Auto) 2.0 Baso % (Auto) 0.4 Lymph # (Auto) 2.8 [place] # (Auto) 0.8 Eos # (Auto) 0.2 Baso # (Auto) 0.0 Abs Immat Gran (auto) 0.03 Absolute Neuts (auto) 4.3 Absolute Nucleated RBC 0.000 Nucleated RBC % (auto) 0.0 APTT VBG pH 7.41 VBG pCO2 32 VBG pO2 56 VBG HCO3 21 L VBG O2 Saturation 90.0 VBG Base Excess -2.4 Sodium 140 Potassium 4.0 Chloride 111 H Carbon Dioxide 21 L Anion Gap 12 BUN 21 H Creatinine 1.55 H Estim Creat Clear Calc 51.4 Estimated GFR 44 Random Glucose 79 Calcium 9.0 D Total Bilirubin AST ALT Alkaline Phosphatase Total Protein Albumin Lipase Urine Color Urine Appearance Urine pH Ur Specific [place] Urine Protein Urine Glucose (UA) Urine Ketones Urine Blood Urine Nitrite Ur Leukocyte Esterase Urine RBC Urine WBC Ur Squamous Epith Cells Urine Bacteria Hyaline Casts Narrative Narrative: EKG 09/23/25 Vent. Rate : 71 BPM Atrial Rate : 71 BPM P-R Int : 164 ms QRS Dur : 100 ms QT Int : 422 ms P-R-T Axes : 10 -26 18 degrees QTcB Int : 458 ms Sinus rhythm with Premature supraventricular complexes Incomplete right bundle branch block Borderline ECG When compared with ECG of 27-Aug-2024 12:25, Premature supraventricular complexes are now Present ECHO 2022 Conclusions: - The left ventricular systolic function is normal. The visually estimated ejection fraction is between 65-70%. - No obvious valvular pathology seen on this study. Findings Left Ventricle Normal left ventricular cavity size. There is normal left ventricular wall thickness. The left ventricular systolic function is normal. The visually estimated ejection fraction is between 65-70%. There is no evidence of regional wall motion abnormalities. Diastolic function is normal for age. Right Ventricle Normal right ventricular cavity size and systolic function. Documented by User: Stephan Roque MD 09/24/25 12:10 [facility] Past Medical History Medical History L2 vertebral fracture CKD (chronic kidney disease) stage 3, GFR 30-59 ml/min Hemophilia A Dyspnea on exertion Weakness Atrial flutter with rapid ventricular response LACY (acute kidney injury) Atrial fibrillation with rapid ventricular response Back pain Bilateral kidney stones Ileostomy in place Lymphangitis Edema of lower extremity Parastomal hernia Obesity (BMI 30-39.9) Nocturnal hypoxemia Restrictive lung disease Essential hypertension Hemophilia Loja cyst Renal stones History of cataract BPH (benign prostatic hyperplasia) Gout Crohn's disease Peripheral vascular disease Thrombocytopenia History of hepatitis C Cholelithiasis Osteopenia Functional capacity: independent ambulation Family History Family History Father Prostate cancer Mother Diabetes Maternal Grandfather Factor VIII deficiency hemophilia Family history of problems with anesthesia: No Surgical History Surgical History S/P colectomy Status post ablation of incompetent vein using laser (01/13/23) H/O tooth extraction History of appendectomy History of urethral stent History of cataract surgery H/O wrist surgery History of Problems with Anesthesia: No Social History Social History Household Members: Spouse Household Members Other:: 1 Housing: House Are you a primary child caregiver private home to a significant other at home: No Do you presently have visiting nurse or other home services: No Alcohol intake: current Alcohol intake frequency: does not drink Alcohol type: beer Comment: no camera space available. Pt remains calm and cooperative, not impulsive Patient Tobacco Use Status: Never used Tobacco Tobacco use type: Cigarette e-Cigarette/Vaping Use: Never Used Second Hand Smoke Exposure: No service: No Current occupational status: retired Cognitive needs: No Hearing needs: No Vision needs: Yes Meds Allergies Allergy/AdvReac Type Severity Reaction Status Date / Time No Known Allergies Allergy Verified 09/23/25 15:25 Home Medications ?Medication ?Instructions ?Recorded ?Confirmed ?Last Taken ?Type calcium 600 mg (as 1 tab PO DAILY 08/03/20 09/24/25 09/23/25 History carbonate)-vitamin D3 5 mcg (200 unit) tablet (Calcium 600 + D(3)) nystatin 100,000 unit/gram topical 1 appl topical DAILY PRN Skin 08/04/22 09/24/25 09/23/25 History powder Irritation cyanocobalamin (vitamin B-12) 1,000 mcg PO DAILY 06/29/24 09/24/25 09/23/25 History 1,000 mcg tablet milk thistle 150 mg capsule 300 mg PO DAILY 09/24/25 09/24/25 09/23/25 History Exam Exam Date and Time: 09/24/2025 Airway TM Dist: >3cm Neck ROM: Full Loose/Missing/Broken Teeth: Yes (multiple missing teeth; poor dentition,) Heart: normal Lungs: normal Other: normal Assessment and Plan Assessment Anesthesia Assessment: Anesthesia Plan Discussed and Smoking Cess. Discussed Final Anesthetic Review Family History of Problems with Anesthesia: No History of Problems with Anesthesia: No NPO: Yes ASA Class: III Final Preanesthetic Review: No Changes in Pt Med Stat and Consent Obtained/Reviewed Patient Risk: Intermediate Procedure Risk: High Anesthetic Plan Anesthetic Plan: GA Disposition: Standard PACU
--- NOTE | 2025-09-24 09:49 | PM.HEMONCCN ---
Subjective - Subjective Chief complaint: Flank pain, hematuria Patient: known to practice within the last 3 years Consult date: 09/24/25 Primary Care Provider: Jennifer Parikh MD Medical Summary: 1. 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 2. History of inflammatory bowel disease. 3. He has Crohn's disease and has had an ileocolectomy and ileostomy about 50 years ago when he was 20 years old. He has had some stoma issues for which he had surgery under the care of Dr. Tristin Smith back in November 1999. 4. Retroperitoneal abscess about 21 years ago. 5. Several admissions for bowel obstruction. 6. Fractured wrist; he underwent insertion of a plate by Dr. Jimmy Mosqueda in December 2001. 7. Subsequently in June 2004 he had rupture of extensor tendons of the right wrist and these were repaired by Dr. Masterson. He did receive Factor replacement for both these surgeries. 8. History of chronic hepatitis C. He said he contracted it from a blood transfusion. He had been treated with interferon and ribavirin and completed treatment in 1996. His last hepatitis C RNA from December 2004 was [id number] and Log was 5.02. His genotype is 1B. 9. History of B12 deficiency. He gets B12 replacement every three months. 10. History of kidney stones Seamer Panty Hose Utilized?: No - Swedish Speaking HPI - Consult Narrative Reason for consult: Hemophilia a, lithotripsy Narrative: Dirk Rosado is a 75 year old male with history of mild hemophilia a who is currently admitted for renal colic and need for surgical procedure/lithotripsy. A week ago patient developed hematuria, he has a history of kidney stones that seemed to flare up every few years. He has undergone lithotripsy procedures in the past, last 1 he thinks was over 5 years ago. His hematuria resolved after 2 days but he came in yesterday because of worsening renal colic. Patient also fell in his kitchen and hurt himself, right side of scalp and worsened his chronic back pain. He reports usual easy skin bruising but no spontaneous mucosal bleeding. He developed a golf ball size hematoma over his right scalp when he fell 2 weeks ago, this is slowly going down. He denies any fever or chills. No dysuria frequency or urgency. He denies any new medical problems. Review of Systems - Constitutional Reports as per HPI, Denies fatigue, Denies lack of energy, Denies malaise - Cardiovascular Reports no additional cardiovascular complaints - Respiratory Reports no additional respiratory complaints - Gastrointestinal Reports no additional gastrointestinal complaints, Denies black, tarry stools, Denies bright, red blood in stools [facility] Medical History: Medical History (Last Reviewed 09/23/25 @ 18:05 by Chyna Gaviria DO) LACY (acute kidney injury) Atrial fibrillation with rapid ventricular response Atrial flutter with rapid ventricular response Back pain Loja cyst Bilateral kidney stones BPH (benign prostatic hyperplasia) Cholelithiasis CKD (chronic kidney disease) stage 3, GFR 30-59 ml/min Crohn's disease Dyspnea on exertion Edema of lower extremity Essential hypertension Gout Hemophilia Hemophilia A History of cataract History of hepatitis C Ileostomy in place L2 vertebral fracture Lymphangitis Nocturnal hypoxemia Obesity (BMI 30-39.9) Osteopenia Parastomal hernia Peripheral vascular disease Renal stones Restrictive lung disease Thrombocytopenia Weakness Family History: Family History (Last Reviewed 05/20/25 @ 10:23 by Peg Brown CMA) Father Prostate cancer Mother Diabetes Maternal Grandfather Factor VIII deficiency hemophilia Surgical History: Surgical History (Last Reviewed 09/23/25 @ 18:05 by Chyna Gaviria DO) H/O tooth extraction H/O wrist surgery History of appendectomy History of cataract surgery History of urethral stent S/P colectomy Status post ablation of incompetent vein using laser Onset Date: 01/13/23 Social History: Social History (Last Reviewed 09/23/25 @ 18:05 by Chyna Gaviria DO) Living Situation History: Household Members: Spouse Household Members Other:: 1 Housing: House Are you a primary critical care physician assistant to a significant other at home: No Do you presently have visiting nurse or other home services: No Tobacco History: Patient Tobacco Use Status: Never used Tobacco Tobacco use type: Cigarette e-Cigarette/Vaping Use: Never Used Second Hand Smoke Exposure: No Occupation Assessmet: service: No Current occupational status: retired Home Medications and Allergies Current Medications: Current Medications Acetaminophen (Acetaminophen 325 Mg Tablet) 650 mg PO Q6H PRN PRN Reason: Pain, Mild 1-3,fever,headache Last Admin: 09/24/25 08:25 Dose: 650 mg Calcium Carbonate (Calcium Carbonate 750 Mg Tab.Chew) 750 mg PO Q4H PRN PRN Reason: Heartburn Hydromorphone HCl (Hydromorphone Hcl 1 Mg/Ml Syringe) 0.5 mg IVPUSH Q4H PRN; Protocol PRN Reason: Pain, Severe (Pain Scale 7-10) Last Admin: 09/24/25 03:04 Dose: 0.5 mg Lactated Ringer's (Lr) 1,000 mls @ 100 mls/hr IVCONT .Q10H [facility] Last Admin: 09/24/25 00:26 Dose: 100 mls/hr Magnesium Hydroxide (Milk Of Magnesia 30 Ml Oral.Susp) 30 ml PO DAILY PRN PRN Reason: Constipation Melatonin (Melatonin 3 Mg Tablet) 6 mg PO BEDTIME PRN PRN Reason: Insomnia Oxycodone HCl (Oxycodone Hcl Immed Release 5 Mg Tablet) 5 mg PO Q6H PRN PRN Reason: Pain, Moderate(Pain Scale 4-6) Last Admin: 09/24/25 08:25 Dose: 5 mg Prochlorperazine Edisylate (Prochlorperazine Edisylate 10 Mg/2 Ml Vial) 5 mg IVPUSH Q6H PRN PRN Reason: Nausea and Vomiting Sodium Chloride (0.9 % Sodium Chloride Flush 3 Ml Syringe) 3 ml IVFLUSH QSHIFT [facility] Last Admin: 09/24/25 07:19 Dose: Not Given Home Medications ?Medication ?Instructions ?Recorded ?Confirmed ?Type calcium 600 mg (as 1 tab PO DAILY 08/03/20 09/24/25 History carbonate)-vitamin D3 5 mcg (200 unit) tablet (Calcium 600 + D(3)) nystatin 100,000 unit/gram topical 1 appl topical DAILY PRN Skin 08/04/22 09/24/25 History powder Irritation cyanocobalamin (vitamin B-12) 1,000 mcg PO DAILY 06/29/24 09/24/25 History 1,000 mcg tablet milk thistle 150 mg capsule 300 mg PO DAILY 09/24/25 09/24/25 History Allergies Allergy/AdvReac Type Severity Reaction Status Date / Time No Known Allergies Allergy Verified 09/23/25 15:25 Physical Exam Vital signs: Vital Signs Temp 98 F 09/24/25 06:50 Pulse 96 09/24/25 06:50 Resp 16 09/24/25 06:50 BP 160/80 H 09/24/25 06:50 Pulse Ox 95 09/24/25 06:50 O2 Del Method Room Air 09/24/25 06:50 Intake & Output 09/23/25 09/24/25 09/24/25 18:59 06:59 18:59 Intake Total 1000 / 1000 Balance 1000 / 1000 Intake: Intake, IV Amount 1000 / 1000 Lactated Ringers 1,000 ml @ 999 1000 / 1000 mls/hr IV .Q1H1M ONE Rx#: [id number] Other: Number of Unmeasured Voids 1 Urine Bathroom Last Bowel Movement 09/24/25 09/24/25 Weight 102 kg 104.4 kg Weight 104.4 kg - Constitutional Present: no acute distress - Routine HEENT Exam Head: Present: hematoma Eye: Present: EOMI - Routine Neck Exam Present: supple. Absent: lymphadenopathy - Routine Respiratory Exam Present: CTAB. Absent: rhonchi, wheezes - Routine Cardiovascular Exam Cardiovascular: Present: RRR, S1, S2 - Routine Abdominal Exam Present: soft - Routine Extremities Exam Present: pulses intact - Routine Skin Exam Present: intact, ecchymosis - Routine Neurological Exam Present: alert, oriented X3 Hem/Onc Consult Result - Labs CBC & Chem 7: 09/24/25 05:59 09/24/25 05:59 Labs: Short CBC 09/23/25 09/24/25 Range/Units 15:52 05:59 WBC 11.4 H 8.1 (4.8-10.8) X10*3/uL Hgb 12.8 L 11.2 L (14.0-18.0) g/dl Hct 39.0 L 33.8 L (42.0-52.0) % Plt Count 189 145 L (160-400) X10*3/uL BMP 09/23/25 09/24/25 15:52 05:59 Sodium 138 140 Potassium 4.2 4.0 Chloride 111 H 111 H Carbon Dioxide 18 L 21 L BUN 21 H 21 H Creatinine 1.78 H 1.55 H Calcium 9.6 9.0 D Liver Function 09/23/25 Range/Units 15:52 Total Bilirubin 0.9 (0.0-1.0) mg/dL AST 31 (5-37) U/L ALT 34 (0-40) U/L Alkaline Phosphatase 78 (39-117) U/L Albumin 4.3 (3.5-5.0) g/dL Urine 09/23/25 Range/Units 17:38 Urine Color Yellow Urine Appearance Clear Urine pH 5.0 (5.0-9.0) Ur Specific [place] 1.015 (1.005-1.025) Urine Protein Negative (Neg-Trace) mg/dL Urine Glucose (UA) Negative (Negative) mg/dL Assessment and Plan Patient Active problem list reviewed?: Yes (1) Hemophilia A Status: Chronic Assessment and plan: 1. This is a 75-year-old male with past medical history significant for mild hemophilia a with factor 8 activity level between 17-29% who is currently admitted for left renal colic and history of hematuria. CBC shows mild normocytic anemia and chronic stable intermittent thrombocytopenia with platelet counts above 100 K. His PTT today is normal at 28.7 seconds. This is because factor 8 is an acute phase reactant and both factor 8 and PTT level can be elevated in times of stress or inflammation. In March his APTT was elevated at 47.7 seconds with factor 8 activity of 20%. Factor 8 activity has been ordered but it is a send out and is pending. Patient is scheduled to undergo minor surgical procedure of laser lithotripsy. For this procedure recommend DDAVP 0.3 mcg per kg once 30-60 minutes before procedure. May be repeated after procedure. Monitor closely for any signs of bleeding. DDAVP may be administered for postprocedure bleeding as well. Monitors CBC and APTT. Thank you for the consultation. - Time Spent With Patient Time Spent with Patient (in minutes): 20 Additional Coding: - Additional E/M codes Complex E/M visit Add On: CPT G2211
--- NOTE | 2025-09-24 12:02 | PM.UROCN ---
History of Present Illness Consult details Consult date: 09/24/25 Narrative: CC: Left obstructing ureteric stone 75-year-old male with background hemophilia array, nephrolithiasis Crohn's with post ileostomy Prior interventions with known uric acid stone Has been on potassium citrate 20 mEq b.i.d. Presents to emergency room with left-sided flank pain, one-week of hematuria Associated nausea and dry heaving Creatinine 1.78, BUN 21, CT scan shows 1.6 cm stone in left renal pelvis at [facility] with distal punctate stone. Left perinephric stranding. Recommend stone intervention with ureteroscopy and laser lithotripsy Discussed with hematology Will be given dose of tranexamic acid prior and following procedure Review of Systems Constitutional: Constitutional: Reports as per HPI and Reports no additional constitutional complaints Cardiovascular: Cardiovascular: Reports as per HPI and Reports no additional cardiovascular complaints Respiratory: Respiratory: Reports as per HPI and Reports no additional respiratory complaints Gastrointestinal: Gastrointestinal: Reports as per HPI and Reports no additional gastrointestinal complaints Genitourinary: Genitourinary: Reports as per HPI Musculoskeletal: Musculoskeletal: Reports no additional musculoskeletal complaints and Reports as per HPI Neurologic: Reports system reviewed and no additional complaints, except as documented and Reports as per HPI [facility] Past Medical History Medical History L2 vertebral fracture CKD (chronic kidney disease) stage 3, GFR 30-59 ml/min Hemophilia A Dyspnea on exertion Weakness Atrial flutter with rapid ventricular response LACY (acute kidney injury) Atrial fibrillation with rapid ventricular response Back pain Bilateral kidney stones Ileostomy in place Lymphangitis Edema of lower extremity Parastomal hernia Obesity (BMI 30-39.9) Nocturnal hypoxemia Restrictive lung disease Essential hypertension Hemophilia Loja cyst Renal stones History of cataract BPH (benign prostatic hyperplasia) Gout Crohn's disease Peripheral vascular disease Thrombocytopenia History of hepatitis C Cholelithiasis Osteopenia Family History Family History Father Prostate cancer Mother Diabetes Maternal Grandfather Factor VIII deficiency hemophilia Surgical History Surgical History S/P colectomy Status post ablation of incompetent vein using laser (01/13/23) H/O tooth extraction History of appendectomy History of urethral stent History of cataract surgery H/O wrist surgery Social History Social History Household Members: Spouse Household Members Other:: 1 Housing: House Are you a primary home care manager to a significant other at home: No Do you presently have visiting nurse or other home services: No Alcohol intake: current Alcohol intake frequency: does not drink Alcohol type: beer Comment: no camera space available. Pt remains calm and cooperative, not impulsive Patient Tobacco Use Status: Never used Tobacco Tobacco use type: Cigarette e-Cigarette/Vaping Use: Never Used Second Hand Smoke Exposure: No service: No Current occupational status: retired Cognitive needs: No Hearing needs: No Vision needs: Yes Meds Allergies Allergy/AdvReac Type Severity Reaction Status Date / Time No Known Allergies Allergy Verified 09/23/25 15:25 Active Medications: Current Medications Acetaminophen (Acetaminophen 325 Mg Tablet) 650 mg PO Q6H PRN PRN Reason: Pain, Mild 1-3,fever,headache Last Admin: 09/24/25 08:25 Dose: 650 mg Calcium Carbonate (Calcium Carbonate 750 Mg Tab.Chew) 750 mg PO Q4H PRN PRN Reason: Heartburn Hydromorphone HCl (Hydromorphone Hcl 1 Mg/Ml Syringe) 0.5 mg IVPUSH Q4H PRN; Protocol PRN Reason: Pain, Severe (Pain Scale 7-10) Last Admin: 09/24/25 10:30 Dose: 0.5 mg Lactated Ringer's (Lr) 1,000 mls @ 100 mls/hr IVCONT .Q10H [facility] Last Admin: 09/24/25 10:32 Dose: 100 mls/hr Magnesium Hydroxide (Milk Of Magnesia 30 Ml Oral.Susp) 30 ml PO DAILY PRN PRN Reason: Constipation Melatonin (Melatonin 3 Mg Tablet) 6 mg PO BEDTIME PRN PRN Reason: Insomnia Oxycodone HCl (Oxycodone Hcl Immed Release 5 Mg Tablet) 5 mg PO Q6H PRN PRN Reason: Pain, Moderate(Pain Scale 4-6) Last Admin: 09/24/25 08:25 Dose: 5 mg Prochlorperazine Edisylate (Prochlorperazine Edisylate 10 Mg/2 Ml Vial) 5 mg IVPUSH Q6H PRN PRN Reason: Nausea and Vomiting Sodium Chloride (0.9 % Sodium Chloride Flush 3 Ml Syringe) 3 ml IVFLUSH QSHIFT [facility] Last Admin: 09/24/25 07:19 Dose: Not Given Home Medications ?Medication ?Instructions ?Recorded ?Confirmed ?Last Taken ?Type calcium 600 mg (as 1 tab PO DAILY 08/03/20 09/24/25 09/23/25 History carbonate)-vitamin D3 5 mcg (200 unit) tablet (Calcium 600 + D(3)) nystatin 100,000 unit/gram topical 1 appl topical DAILY PRN Skin 08/04/22 09/24/25 09/23/25 History powder Irritation cyanocobalamin (vitamin B-12) 1,000 mcg PO DAILY 06/29/24 09/24/25 09/23/25 History 1,000 mcg tablet milk thistle 150 mg capsule 300 mg PO DAILY 09/24/25 09/24/25 09/23/25 History Physical Exam Vital Signs: Vital Signs: Last Vital Signs Temp 98.8 F 09/24/25 11:32 Pulse 76 09/24/25 11:32 Resp 13 09/24/25 11:32 BP 144/70 H 09/24/25 11:32 Pulse Ox 96 09/24/25 11:32 O2 Del Method Room Air 09/24/25 11:32 BMI result Body Mass Index 32.1 Const: General: cooperative, healthy appearing, comfortable and no acute distress Orientation/consciousness: patient oriented x3 HEENT: Face and sinus: Yes normal facial exam Mouth: moist mucous membranes Neck: Neck: Yes normal visual inspection, Yes full ROM and Yes trachea midline Chest: Chest palpation & inspection: normal inspection of the chest Resp: Effort & Inspection: normal respiratory effort, able to speak in complete sentences and no respiratory distress GI: Inspection: Yes normal to inspection Back/Spine/Pelvis: Cervical Spine: normal cervical lordosis Thoracic/Lumbar Spine: thoracic and lumbar spine normal to inspection Skin: General skin exam: no rashes or lesions noted Neuro: General: patient oriented x3, tone normal and moves all extremities Extrem: General: Yes normal to inspection and Yes capillary refill normal Results Labs 09/24/25 05:59 09/24/25 05:59 Labs: Abnormal lab results 09/23/25 09/23/25 09/24/25 Range/Units 15:52 17:38 05:59 WBC 11.4 H (4.8-10.8) X10*3/uL RBC 4.26 L 3.70 L (4.60-5.80) X10*6/uL Hgb 12.8 L 11.2 L (14.0-18.0) g/dl Hct 39.0 L 33.8 L (42.0-52.0) % Plt Count 145 L (160-400) X10*3/uL MPV 9.3 L (9.4-12.4) fL Abs Immat Gran (auto) 0.05 H (0.00-0.03) X10*3/uL VBG HCO3 (22-26) mmol/L Chloride 111 H 111 H (96-108) mmol/L Carbon Dioxide 18 L 21 L (22-29) mmol/L BUN 21 H 21 H (9-16) mg/dL Creatinine 1.78 H 1.55 H (0.5-1.4) mg/dL Urine Blood Large (3+) H (Negative) Ur Leukocyte Esterase Trace H (Negative) Urine RBC 6-10 H (0-2) /HPF 09/24/25 Range/Units 06:07 WBC (4.8-10.8) X10*3/uL RBC (4.60-5.80) X10*6/uL Hgb (14.0-18.0) g/dl Hct (42.0-52.0) % Plt Count (160-400) X10*3/uL MPV (9.4-12.4) fL Abs Immat Gran (auto) (0.00-0.03) X10*3/uL VBG HCO3 21 L (22-26) mmol/L Chloride (96-108) mmol/L Carbon Dioxide (22-29) mmol/L BUN (9-16) mg/dL Creatinine (0.5-1.4) mg/dL Urine Blood (Negative) Ur Leukocyte Esterase (Negative) Urine RBC (0-2) /HPF Short CBC 09/23/25 09/24/25 Range/Units 15:52 05:59 WBC 11.4 H 8.1 (4.8-10.8) X10*3/uL Hgb 12.8 L 11.2 L (14.0-18.0) g/dl Hct 39.0 L 33.8 L (42.0-52.0) % Plt Count 189 145 L (160-400) X10*3/uL BMP 09/23/25 09/24/25 15:52 05:59 Sodium 138 140 Potassium 4.2 4.0 Chloride 111 H 111 H Carbon Dioxide 18 L 21 L BUN 21 H 21 H Creatinine 1.78 H 1.55 H Calcium 9.6 9.0 D Liver Function 09/23/25 Range/Units 15:52 Total Bilirubin 0.9 (0.0-1.0) mg/dL AST 31 (5-37) U/L ALT 34 (0-40) U/L Alkaline Phosphatase 78 (39-117) U/L Albumin 4.3 (3.5-5.0) g/dL Urine 09/23/25 Range/Units 17:38 Urine Color Yellow Urine Appearance Clear Urine pH 5.0 (5.0-9.0) Ur Specific [place] 1.015 (1.005-1.025) Urine Protein Negative (Neg-Trace) mg/dL Urine Glucose (UA) Negative (Negative) mg/dL All other labs normal. Assessment and Plan (1) Renal stones: Status: Acute Plan Ureteroscopy We discussed the nature of the decision and reasonable alternatives for performing ureteroscopy. Options such as medical therapy were discussed. Interventions include chemical dissolution, ESWL, ureteroscopy with laser lithotripsy and stent placement, PCNL. The relative uncertainties and benefits related to each alternate procedure were adequately discussed. General surgical risks including, but not limited to - pain, bleeding, infection, myocardial infarction, pulmonary embolus, deep vein thrombosis and cerebrovascular accident which may result in further hospitalization were discussed. Full disclosure of the procedure as well as all major risks, benefits and complications were discussed including but not limited to damage to the urethra, bladder and kidney infection, damage to the ureter, stent migration or malposition, scarring to the renal pelvis, remnant stone fragments, subsequent stone passage with need for secondary procedures. The overall secondary procedure rate is approximately 10-15%. The overall clearance rate is approximately 90-95%. Success of the procedure in the short-term does not necessarily guarantee that long-term success will be maintained. Suitable follow up will need to be maintained. The patient showed understanding of discussion and wishes to proceed with - cystoscopy, retrograde, ureteroscopy, possible lithotripsy/stone basketing and stent on the left side Procedures Date of Service Date of Service: 09/24/25
--- NOTE | 2025-09-24 12:50 | MHC.SHP ---
Pre-Procedural Eval Section A - 24 Hr Update-Section A only Date of Service: 09/24/25 The patient is an INPATIENT: Yes Changes since office visit: No Cold of Flu in the past 2 weeks, No New Medical Problems, No Changes in Medication and No Patient answered all questions The patient has been examined within 24 hours of the surgical procedure. The History & Physical has been completed within 30 days and I have reviewed it.: Yes Section B - Complete if H&P > 30 days Chief Complaint: Obstructive renal stone with left hydroureter, hem Details of Present Illness: left retrograde, ureteroscopy, laser, stent Allergies: Allergies Allergy/AdvReac Type Severity Reaction Status Date / Time No Known Allergies Allergy Verified 09/23/25 15:25 Plan I have reviewed the history and physical and performed a pertinent physical examination on my patient. No changes have occurred unless specified. Time Spent With Patient Time: Total time managing care of this patient today ____ minutes.
--- NOTE | 2025-09-24 13:14 | MHC.CM.PN ---
Pt. is off unit for procedure, CM to complete assessment later
--- NOTE | 2025-09-24 13:16 | P.PNIM_ITS ---
Subjective Subjective Date of Service: 09/24/25 Interval History: left obstructive renal calculi hemophilia A Review of Systems has similar pain Review of Systems: Yes all other systems are reviewed and are negative Physical Exam 2 Vital Signs: Vital Signs: Last Vital Signs Temp 98.8 F 09/24/25 11:32 Pulse 76 09/24/25 11:32 Resp 13 09/24/25 11:32 BP 144/70 H 09/24/25 11:32 Pulse Ox 96 09/24/25 11:32 O2 Del Method Room Air 09/24/25 11:32 BMI result Body Mass Index 32.1 Appearance: Alert.? Oriented X3. cvs: rrr, [id number] . res: clear to auscultation ,no rhonchii or wheezing abd: no rebound or guarding ,nt, bs present. left flank pain ext pulses present , no cyanosis. neuro: axo3 , nonfocal. Objective Data Active Medications Acetaminophen (Acetaminophen 325 Mg Tablet) 650 mg PO Q6H PRN PRN Reason: Pain, Mild 1-3,fever,headache Last Admin: 09/24/25 08:25 Dose: 650 mg Documented By: OSMAR Albuterol/Ipratropium (Albuterol/Iprat 2.5/0.5mg 3 Ml Ampul.Neb) 3 ml INHALE ONCE PRN PRN Reason: Bronchospasm/wheezing Stop: 09/24/25 18:11 Calcium Carbonate (Calcium Carbonate 750 Mg Tab.Chew) 750 mg PO Q4H PRN PRN Reason: Heartburn Fentanyl (Fentanyl Citrate/Pf 100 Mcg/2 Ml Vial) 25 mcg IVPUSH Q5M PRN PRN Reason: Pain, Moderate to Severe (Pain Scale 4-10) Stop: 09/24/25 18:10 Hydromorphone HCl (Hydromorphone Hcl 1 Mg/Ml Syringe) 0.5 mg IVPUSH Q4H PRN; Protocol PRN Reason: Pain, Severe (Pain Scale 7-10) Last Admin: 09/24/25 10:30 Dose: 0.5 mg Documented By: OSMAR Lactated Ringer's (Lr) 1,000 mls @ 100 mls/hr IVCONT .Q10H [facility]ACISCO Last Admin: 09/24/25 10:32 Dose: 100 mls/hr Documented By: OSMAR Lactated Ringer's (Lr) 500 mls @ 20 mls/hr IVCONT .Q24H [facility] Levofloxacin (Levaquin) 500 mg in 100 mls @ 100 mls/hr IV PREOP ONE Stop: 09/24/25 13:49 Magnesium Hydroxide (Milk Of Magnesia 30 Ml Oral.Susp) 30 ml PO DAILY PRN PRN Reason: Constipation Melatonin (Melatonin 3 Mg Tablet) 6 mg PO BEDTIME PRN PRN Reason: Insomnia Naloxone HCl (Naloxone Hcl 0.4 Mg/Ml Vial) 0.04 mg IVPUSH Q5M PRN PRN Reason: Excessive sedation or RR < 8 Oxycodone HCl (Oxycodone Hcl Immed Release 5 Mg Tablet) 5 mg PO Q6H PRN PRN Reason: Pain, Moderate(Pain Scale 4-6) Last Admin: 09/24/25 08:25 Dose: 5 mg Documented By: OSMAR Prochlorperazine Edisylate (Prochlorperazine Edisylate 10 Mg/2 Ml Vial) 5 mg IVPUSH Q6H PRN PRN Reason: Nausea and Vomiting Sodium Chloride (0.9 % Sodium Chloride Flush 3 Ml Syringe) 3 ml IVFLUSH QSHIFT [facility] Last Admin: 09/24/25 07:19 Dose: Not Given Documented By: OSMAR Non-Admin Reason: IV Running Labs 09/24/25 05:59 09/24/25 05:59 Labs: Laboratory Results - last 24 hr 09/23/25 09/23/25 09/24/25 15:52 17:38 00:03 MCV 91.5 MCH 30.0 MCHC 32.8 RDW 14.8 Plt Count 189 MPV 9.3 L Immature Gran % (Auto) 0.4 Neut % (Auto) 70.6 Lymph % (Auto) 20.2 [place] % (Auto) 7.7 Eos % (Auto) 0.8 Baso % (Auto) 0.3 Lymph # (Auto) 2.3 [place] # (Auto) 0.9 Eos # (Auto) 0.1 Baso # (Auto) 0.0 Abs Immat Gran (auto) 0.05 H Absolute Neuts (auto) 8.0 Absolute Nucleated RBC 0.000 Nucleated RBC % (auto) 0.0 APTT 28.7 VBG pH VBG pCO2 VBG pO2 VBG HCO3 VBG O2 Saturation VBG Base Excess Anion Gap 13 Estim Creat Clear Calc 44.2 Estimated GFR 38 Random Glucose 93 Calcium 9.6 Total Bilirubin 0.9 AST 31 ALT 34 Alkaline Phosphatase 78 Total Protein 7.2 Albumin 4.3 Lipase 28 Urine Color Yellow Urine Appearance Clear Urine pH 5.0 Ur Specific [place] 1.015 Urine Protein Negative Urine Glucose (UA) Negative Urine Ketones Negative Urine Blood Large (3+) H Urine Nitrite Negative Ur Leukocyte Esterase Trace H Urine RBC 6-10 H Urine WBC 0-5 Ur Squamous Epith Cells 3-5 Urine Bacteria None Seen Hyaline Casts 0-2 09/24/25 09/24/25 05:59 06:07 MCV 91.4 MCH 30.3 MCHC 33.1 RDW 14.9 Plt Count 145 L MPV 9.6 Immature Gran % (Auto) 0.4 Neut % (Auto) 53.1 Lymph % (Auto) 34.5 [place] % (Auto) 9.6 Eos % (Auto) 2.0 Baso % (Auto) 0.4 Lymph # (Auto) 2.8 [place] # (Auto) 0.8 Eos # (Auto) 0.2 Baso # (Auto) 0.0 Abs Immat Gran (auto) 0.03 Absolute Neuts (auto) 4.3 Absolute Nucleated RBC 0.000 Nucleated RBC % (auto) 0.0 APTT VBG pH 7.41 VBG pCO2 32 VBG pO2 56 VBG HCO3 21 L VBG O2 Saturation 90.0 VBG Base Excess -2.4 Anion Gap 12 Estim Creat Clear Calc 51.4 Estimated GFR 44 Random Glucose 79 Calcium 9.0 D Total Bilirubin AST ALT Alkaline Phosphatase Total Protein Albumin Lipase Urine Color Urine Appearance Urine pH Ur Specific [place] Urine Protein Urine Glucose (UA) Urine Ketones Urine Blood Urine Nitrite Ur Leukocyte Esterase Urine RBC Urine WBC Ur Squamous Epith Cells Urine Bacteria Hyaline Casts Assessment and Plan (1) Hemophilia A: Status: Chronic (2) Ureterolithiasis: Status: Acute (3) Hydronephrosis with renal and ureteral calculus obstruction: Status: Acute Assessment and Plan: 75 y/o man with a PMHx significant for, nephrolithiasis (uric acid requiring urological procedure in the past by Dr. Rose) who presents with: Left obstructive renal calculus with left hydroureter causing hematuria (resolved, please see picture latest urine sample on PE). Hold aspirin. NPO. Continue IV fluids. Pain control with Dilaudid IV. urology and hematology eval patient: plan: scheduled to undergo minor surgical procedure of laser lithotripsy. For this procedure recommend DDAVP 0.3 mcg per kg once 30-60 minutes before procedure. May be repeated after procedure. urology following Hemophilia A. No joint pains or muscle hematomas. Hx a-flutter. No anticoagulation due to history of hematuria. ECG today showed sinus rhythm Continue dronedarone. Aspirin hold due to recent events of hematuria. Orthostatic hypotension. Continue midodrine. Chronic back pain due to old L2 vertebrae fracture. Lumbar MRI done today showed no spinal cord compression. Continue oxycodone and gabapentin. Hyperlipidemia. Continue simvastatin. Depression. Continue sertraline. CKD stage 3B. There is associated normal anion gap metabolic acidosis and hyperchloremia; CO2 is 18. Will check venous pH. Continue IV fluids. BPH. Continue finasteride. Chronic anemia. Continue to monitor. Hx thrombocytopenia. Platelets are normal today. Continue to monitor. Crohn disease. Status post ileostomy. Has a paristomal hernia. Code status: Full DVT prophylaxis: SCDs only ongoing need for hospitalization for left obstructive renal stone with left hydroureter and hematuria management with IV pain meds, IV fluids and evaluation by Urology Service for urological procedure. Quality Stroke Does the patient have a stroke diagnosis?: No VTE Prior VTE?: No VTE Risk Level:: Medical - moderate - high VTE Device Contraindication: N/A - Device Ordered VTE Drug Contraindication: Treatment Not Tolerated
--- NOTE | 2025-09-24 14:39 | W.PM.OPN ---
Operative Note Operative Note Date of Service: 09/24/25 Narrative: PreOperative Diagnosis: Left renal stone Post Operative Diagnosis: Left renal stone Procedure: - cystoscopy, left retrograde - left dilatation of ureteric orifice under fluoroscopy - left ureteroscopy - with steerable, vacuum access sheath, laser lithotripsy, stone basketing - modifier 22, 100% longer than typical. 60 minutes versus 30 minutes - left stent placement Surgeon: Dr Armani Rose Anesthesia: General Indications for procedure: Presentation with increased left flank pain. Increased hematuria. Imaging shows 1.2 cm stone left side Procedure: After informed consent was verified patient was brought to the operating placed in supine position. Anesthesia was administered per protocol. Patient was placed in modified dorsal lithotomy position and prepped and draped in a sterile fashion. Safety pause time-out and side of surgery confirmed. Antibiotics confirmed. A 22 [place]ish cystoscope was inserted per urethra. The urethra and bladder were normal in their entirety. Both ureteric orifices were in normal position. The left ureteric orifice was cannulated and a retrograde examination was performed. Filling defects seen within the left renal pelvis consistent with large stone. A Sensor guidewire was placed up to the level of the renal pelvis under fluoroscopy. The rigid cystoscope was removed and the inner cannula of ureteric access sheath was used under fluoroscopy to dilate the ureteric orifice. The flexible, steerable, vacuum ureteric access sheath was placed and the inner cannula with access wire removed. The digital flexible ureteral scope was placed. The stone was encountered. Using the [employer] laser with hammer and dusting settings the stone was broken into small pieces and suctioned. There were small fragments left at the end however 90% had been cleared. At the completion of the stone procedure a Sensor wire was placed back into the renal pelvis. This took approximately 60 minutes. A 6 [place] by variable length cm double-J stent was placed into the renal pelvis and bladder under a combination of fluoroscopy and direct visualization. Proximal positioning of the stent was confirmed using fluoroscopy. The bladder was emptied. The patient tolerated the procedure well and was extubated in the operating room, and transferred in stable condition to the recovery area. Pathology: Stones Drains: Stent as described [facility] describes cystourethroscopy, with ureteroscopy and/or pyeloscopy, with lithotripsy, and ureteral catheterization for steerable vacuum aspiration of the kidney, collecting system, ureter, bladder, and urethra if applicable (must use a steerable ureteral catheter).
[2025-09-24] MEDS: Tranexamic Acid 1,000 MG in 0.9 % Sodium Chloride 50 ML 360 MG IV (16:17)
--- NOTE | 2025-09-25 00:11 | PC.NURSE ---
Pt s/p cystoscopy, laser lithotripsy, and stent placement. Voiding in urinal. Urine is dark red/[place]a colored. Pt reporting pain in his lower back and penis, especially when voiding. IV dilaudid adequate in managing pain.
[2025-09-25] MEDS: Lactated Ringers 1,000 ML 100 ML IVCONT ×2 (00:42→09:37)
[2025-09-25 04:00] VITALS: BP 160/58; PULSE 78; RESP 18; TEMP 36.2; O2SAT 93
[2025-09-25] MEDS: oxyCODONE HCl Immed Release 5 MG TABLET PO (06:27)
[2025-09-25 06:48] VITALS: BP 152/70; PULSE 102; RESP 16; TEMP 36.6; O2SAT 93
[2025-09-25] MEDS: Calcium + Vitamin D 250 MG TABLET 500 MG PO (07:47)
[2025-09-25 08:32] LABS: Hematocrit 36.1 % (42.0-52.0); Hemoglobin 11.7 g/dl (14.0-18.0)
[2025-09-25 08:51] LABS: Blood Urea Nitrogen 24 mg/dL (9-16); Calcium 8.7 mg/dL (8.4-10.2); Creatinine Clr Calc Pharmacy 36.8; Estimated Glomerular Filt Rate 30
[2025-09-25 09:00] LABS: Anion Gap 17 (12-20); Carbon Dioxide 16 mmol/L (22-29); Chloride 110 mmol/L (96-108); Potassium 4.0 mmol/L (3.3-5.1); Sodium 139 mmol/L (135-145)
[2025-09-25 11:42] VITALS: BP 140/72; PULSE 96; RESP 17; TEMP 36.6; O2SAT 94
--- NOTE | 2025-09-25 11:49 | P.CONNP_ITS ---
History of Present Illness Reason for Consult Consult date: 09/25/25 Chief Complaint Chief complaint: Obstructive renal stone with left hydroureter, hem History of Present Illness Narrative: 75-year-old gentleman with PMH of CKD stage 3, uric acid nephrolithiasis, BPH, hemophilia a, a flutter, Crohn's disease is admitted to the hospital due to hematuria. He underwent CT abdomen and pelvis in the ED which shows 1.6 cm stone in the left renal pelvis leading to left hydroureter along with perinephric stranding. His baseline creatinine is around 1.4, it was 1.5 on presentation increased to 2.16 today so renal is consulted. Review of Systems Review of Systems Const : no body aches, no chills, no excessive sweating and no fatigue Eyes: no blurry vision and no change in vision ENT: no bleeding gums and no change in voice, no dizziness Card: no chest pain, no shortness of breath, no orthopnea, no PND Resp: no cough, no excessive phlegm production, no SOB GI: no abdominal pain and no nausea, no vomiting : + hematuria, + urinary frequency and + difficulty voiding Musc: no abnormal gait, no bone pain Neuro: no abnormal movements, no weakness Psych: no behavioral changes and no change in appetite Endo: no change in body appearance, no cold intolerance, no excessive sweating and no fatigue PMFSH Past Medical History Medical History L2 vertebral fracture CKD (chronic kidney disease) stage 3, GFR 30-59 ml/min Hemophilia A Dyspnea on exertion Weakness Atrial flutter with rapid ventricular response LACY (acute kidney injury) Atrial fibrillation with rapid ventricular response Back pain Bilateral kidney stones Ileostomy in place Lymphangitis Edema of lower extremity Parastomal hernia Obesity (BMI 30-39.9) Nocturnal hypoxemia Restrictive lung disease Essential hypertension Hemophilia Loja cyst Renal stones History of cataract BPH (benign prostatic hyperplasia) Gout Crohn's disease Peripheral vascular disease Thrombocytopenia History of hepatitis C Cholelithiasis Osteopenia Family History Family History Father Prostate cancer Mother Diabetes Maternal Grandfather Factor VIII deficiency hemophilia Surgical History Surgical History S/P colectomy Status post ablation of incompetent vein using laser (01/13/23) H/O tooth extraction History of appendectomy History of urethral stent History of cataract surgery H/O wrist surgery Social History Social History Household Members: Spouse Household Members Other:: 1 Housing: House Are you a primary career placement specialist to a significant other at home: No Do you presently have visiting nurse or other home services: No Alcohol intake: current Alcohol intake frequency: does not drink Alcohol type: beer Comment: no camera space available. Pt remains calm and cooperative, not impulsive Patient Tobacco Use Status: Never used Tobacco Tobacco use type: Cigarette e-Cigarette/Vaping Use: Never Used Second Hand Smoke Exposure: No service: No Current occupational status: retired Cognitive needs: No Hearing needs: No Vision needs: Yes Meds Allergies Allergy/AdvReac Type Severity Reaction Status Date / Time No Known Allergies Allergy Verified 09/23/25 15:25 Active Medications: Current Medications Acetaminophen (Acetaminophen 325 Mg Tablet) 650 mg PO Q6H PRN PRN Reason: Pain, Mild 1-3,fever,headache Last Admin: 09/24/25 08:25 Dose: 650 mg Calcium Carbonate (Calcium Carbonate 750 Mg Tab.Chew) 750 mg PO Q4H PRN PRN Reason: Heartburn Calcium Carbonate/Cholecalciferol (Calcium + Vitamin D 250 Mg Tablet) 500 mg PO DAILY [facility] Last Admin: 09/25/25 07:47 Dose: 500 mg Cyanocobalamin (Vitamin B12) (Cyanocobalamin (Vitamin B-12) 1,000 Mcg Tablet) 1,000 mcg PO DAILY [facility] Last Admin: 09/25/25 07:47 Dose: 1,000 mcg Dronedarone (Dronedarone Hcl 400 Mg Tablet) 400 mg PO BID [facility] Last Admin: 09/25/25 07:47 Dose: 400 mg Finasteride (Finasteride 5 Mg Tablet) 5 mg PO DAILY [facility] Last Admin: 09/25/25 07:47 Dose: 5 mg Folic Acid (Folic Acid 1 Mg Tablet) 1 mg PO DAILY [facility] Last Admin: 09/25/25 07:47 Dose: 1 mg Gabapentin (Gabapentin 300 Mg Capsule) 300 mg PO BEDTIME [facility] Last Admin: 09/24/25 19:47 Dose: 300 mg Hydromorphone HCl (Hydromorphone Hcl 1 Mg/Ml Syringe) 0.75 mg IVPUSH Q3H PRN; Protocol PRN Reason: Pain, Severe (Pain Scale 7-10) Last Admin: 09/25/25 07:52 Dose: 0.75 mg Lactated Ringer's (Lr) 1,000 mls @ 100 mls/hr IVCONT .Q10H [facility] Last Admin: 09/25/25 09:37 Dose: 100 mls/hr Lactated Ringer's (Lr) 500 mls @ 20 mls/hr IVCONT .Q24H [facility] Last Admin: 09/24/25 15:26 Dose: Not Given Magnesium Hydroxide (Milk Of Magnesia 30 Ml Oral.Susp) 30 ml PO DAILY PRN PRN Reason: Constipation Melatonin (Melatonin 3 Mg Tablet) 6 mg PO BEDTIME PRN PRN Reason: Insomnia Midodrine (Midodrine Hcl 2.5 Mg Tablet) 2.5 mg PO TID PRN PRN Reason: hypotension Naloxone HCl (Naloxone Hcl 0.4 Mg/Ml Vial) 0.04 mg IVPUSH Q5M PRN PRN Reason: Excessive sedation or RR < 8 Naloxone HCl (Naloxone Hcl 0.4 Mg/Ml Vial) 0.04 mg IVPUSH Q5M PRN PRN Reason: Excessive sedation or RR < 8 Nystatin (Nystatin Powder 15 Gm Bottle) 1 appl TOPICAL DAILY PRN; Protocol PRN Reason: Skin Irritation Oxycodone HCl (Oxycodone Hcl Immed Release 5 Mg Tablet) 5 mg PO Q6H PRN PRN Reason: Pain, Moderate(Pain Scale 4-6) Last Admin: 09/25/25 06:27 Dose: 5 mg Oxycodone HCl (Oxycodone Hcl Immed Release 5 Mg Tablet) 5 mg PO Q4H PRN PRN Reason: Pain, Mild (Pain Scale 1-3) Prochlorperazine Edisylate (Prochlorperazine Edisylate 10 Mg/2 Ml Vial) 5 mg IVPUSH Q6H PRN PRN Reason: Nausea and Vomiting Last Admin: 09/24/25 19:28 Dose: 5 mg Pyridoxine HCl (Pyridoxine Hcl (Vitamin B6) 50 Mg Tablet) 100 mg PO DAILY [facility] Last Admin: 09/25/25 07:47 Dose: 100 mg Sertraline HCl (Sertraline Hcl 25 Mg Tablet) 25 mg PO DAILY [facility] Last Admin: 09/25/25 07:47 Dose: 25 mg Sodium Chloride (0.9 % Sodium Chloride Flush 3 Ml Syringe) 3 ml IVFLUSH QSHIFT [facility] Last Admin: 09/25/25 07:05 Dose: Not Given Home Medications ?Medication ?Instructions ?Recorded ?Confirmed ?Last Taken ?Type calcium 600 mg (as 1 tab PO DAILY 08/03/2009/0209/23/25 History carbonate)-vitamin D3 5 mcg (200 unit) tablet (Calcium 600 + D(3)) nystatin 100,000 unit/gram topical 1 appl topical CORI Y PRN Skin 08/04/22 09/24/25 09/23/25 History powder Irritation cyanocobalamin (vitamin B-12) 1,000 mcg PO DAILY 06/2909/24/25 09/23/25 History 1,000 mcg tablet milk thistle 150 mg capsule 300 mg PO DAILY 09/24/25 1 11/25/24 09/23/25 History Physical Exam Vital Signs: Last Vital Signs Temp 98 F 09/25/25 11:42 Pulse 96 09/25/25 11:42 Resp 17 09/25/25 11:42 BP 140/72 H 09/25/25 11:42 Pulse Ox 94 09/25/25 11:42 O2 Del Method Room Air 09/25/25 11:42 O2 Flow Rate 6 09/24/25 14:55 BMI result Body Mass Index 32.1 General: not in any acute distress, ill appearing Nutritional Appearance: well nourished and overweight Eyes: appearance normal, both eyes and all related structures; Alignment and Position: alignment normal and position normal Neck: No lymphadenopathy, no thyromegaly Resp: bilateral air entry equal, no added sounds present Cardio: Regular rate, regular rhythm; Heart sounds: S1 normal heart sound present and S2 normal heart sound present GI: soft, nontender, no guarding, no hepatosplenomegaly : bladder normal to inspection, bladder normal to palpation, no renal angle tenderness Skin: no rashes or lesions noted and elasticity normal Neuro: alert, oriented x 3, moves all extremities Results Lab Results 09/25/25 08:19 09/25/25 08:20 Lab results: Chemistry 09/23/25 09/24/25 09/25/25 15:52 05:59 08:20 Sodium 138 140 139 Potassium 4.2 4.0 4.0 Carbon Dioxide 18 L 21 L 16 L BUN 21 H 21 H 24 H Creatinine 1.78 H 1.55 H 2.16 H Calcium 9.6 9.0 D 8.7 Hematology 09/23/25 09/24/25 09/25/25 15:52 05:59 08:19 WBC 11.4 H 8.1 Hgb 12.8 L 11.2 L 11.7 L Plt Count 189 145 L Urinalysis 09/23/25 17:38 Urine Color Yellow Urine Appearance Clear Urine pH 5.0 Ur Specific [place] 1.015 Urine Protein Negative Urine Glucose (UA) Negative Urine Ketones Negative Urine Blood Large (3+) H Urine Nitrite Negative Ur Leukocyte Esterase Trace H Urine RBC 6-10 H Urine WBC 0-5 Ur Squamous Epith Cells 3-5 Hyaline Casts 0-2 Assessment and Plan (1) Renal stones: Status: Acute (2) Hydronephrosis with renal and ureteral calculus obstruction: Status: Acute (3) Acute kidney injury superimposed on CKD: Status: Acute Plan Acute on chronic kidney disease: Left-sided hydroureter with possible pyelonephritis: Patient has a baseline creatinine about 1.4, increased to 2.16 this morning so renal is consulted Urinalysis showing no protein, no WBC, positive blood possibly from nephrolithiasis He underwent a ureteroscopy, left-sided laser lithotripsy with stent placement on 09/24/2025. Recommend adding antibiotic and IV fluids LR at 100 cc/hour Avoid nephrotoxic agents,ACEi/ARB, contrast, NSAIDs Closely monitor I's and os Procedures Date of Service Date of Service: 09/25/25
--- NOTE | 2025-09-25 14:02 | MHC.CM.PN ---
IMM DELIVERED PT LIVES WITH SPOUSE AND USES A CANE PRN WHEN OUT OF HOME. NO SERVICES. + HCP, COPY AT HOME. PCP DR. PINEDA. DP: HOME, NO SERVICES IS THE GOAL. PT'S SPOUSE WILL TRANSPORT. CM WILL CONTINUE TO FOLLOW FOR ANY CHANGE TO DC PLAN/NEEDS.
[2025-09-25 15:03] VITALS: BP 140/65; PULSE 96; RESP 18; TEMP 37.4; O2SAT 96
--- NOTE | 2025-09-25 15:06 | P.PNIM_ITS ---
Subjective Subjective Date of Service: 09/25/25 Interval History: uretral stone Review of Systems has some soarness no fever Review of Systems: Yes all other systems are reviewed and are negative Physical Exam 2 Exam: Exam: Appearance: Alert.? Oriented X3. cvs: rrr, [id number] . res: clear to auscultation ,no rhonchii or wheezing abd: no rebound or guarding ,nt, bs present. left flank soarness ext pulses present , no cyanosis. neuro: axo3 , nonfocal Vital Signs: Vital Signs: Last Vital Signs Temp 99.4 F 09/25/25 15:03 Pulse 96 09/25/25 15:03 Resp 18 09/25/25 15:03 BP 140/65 H 09/25/25 15:03 Pulse Ox 96 09/25/25 15:03 O2 Del Method Room Air 09/25/25 15:03 O2 Flow Rate 6 09/24/25 14:55 BMI result Body Mass Index 32.1 Objective Data Active Medications Acetaminophen (Acetaminophen 325 Mg Tablet) 650 mg PO Q6H PRN PRN Reason: Pain, Mild 1-3,fever,headache Last Admin: 09/24/25 08:25 Dose: 650 mg Documented By: OSMAR Calcium Carbonate (Calcium Carbonate 750 Mg Tab.Chew) 750 mg PO Q4H PRN PRN Reason: Heartburn Calcium Carbonate/Cholecalciferol (Calcium + Vitamin D 250 Mg Tablet) 500 mg PO DAILY [facility] Last Admin: 09/25/25 07:47 Dose: 500 mg Documented By: STACIE Cyanocobalamin (Vitamin B12) (Cyanocobalamin (Vitamin B-12) 1,000 Mcg Tablet) 1,000 mcg PO DAILY [facility] Last Admin: 09/25/25 07:47 Dose: 1,000 mcg Documented By: STACIE Dronedarone (Dronedarone Hcl 400 Mg Tablet) 400 mg PO BID [facility] Last Admin: 09/25/25 07:47 Dose: 400 mg Documented By: STACIE Finasteride (Finasteride 5 Mg Tablet) 5 mg PO DAILY [facility] Last Admin: 09/25/25 07:47 Dose: 5 mg Documented By: STACIE Folic Acid (Folic Acid 1 Mg Tablet) 1 mg PO DAILY [facility] Last Admin: 09/25/25 07:47 Dose: 1 mg Documented By: STACIE Gabapentin (Gabapentin 300 Mg Capsule) 300 mg PO BEDTIME [facility] Last Admin: 09/24/25 19:47 Dose: 300 mg Documented By: ISMAEL Hydromorphone HCl (Hydromorphone Hcl 1 Mg/Ml Syringe) 0.75 mg IVPUSH Q3H PRN; Protocol PRN Reason: Pain, Severe (Pain Scale 7-10) Last Admin: 09/25/25 07:52 Dose: 0.75 mg Documented By: STACIE Lactated Ringer's (Lr) 1,000 mls @ 100 mls/hr IVCONT .Q10H [facility] Last Admin: 09/25/25 09:37 Dose: 100 mls/hr Documented By: STACIE Lactated Ringer's (Lr) 500 mls @ 20 mls/hr IVCONT .Q24H [facility] Last Admin: 09/25/25 12:12 Dose: Not Given Documented By: STACIE Non-Admin Reason: other fluids running Magnesium Hydroxide (Milk Of Magnesia 30 Ml Oral.Susp) 30 ml PO DAILY PRN PRN Reason: Constipation Melatonin (Melatonin 3 Mg Tablet) 6 mg PO BEDTIME PRN PRN Reason: Insomnia Midodrine (Midodrine Hcl 2.5 Mg Tablet) 2.5 mg PO TID PRN PRN Reason: hypotension Naloxone HCl (Naloxone Hcl 0.4 Mg/Ml Vial) 0.04 mg IVPUSH Q5M PRN PRN Reason: Excessive sedation or RR < 8 Naloxone HCl (Naloxone Hcl 0.4 Mg/Ml Vial) 0.04 mg IVPUSH Q5M PRN PRN Reason: Excessive sedation or RR < 8 Nystatin (Nystatin Powder 15 Gm Bottle) 1 appl TOPICAL DAILY PRN; Protocol PRN Reason: Skin Irritation Oxycodone HCl (Oxycodone Hcl Immed Release 5 Mg Tablet) 5 mg PO Q6H PRN PRN Reason: Pain, Moderate(Pain Scale 4-6) Last Admin: 09/25/25 06:27 Dose: 5 mg Documented By: BASSEM Oxycodone HCl (Oxycodone Hcl Immed Release 5 Mg Tablet) 5 mg PO Q4H PRN PRN Reason: Pain, Mild (Pain Scale 1-3) Prochlorperazine Edisylate (Prochlorperazine Edisylate 10 Mg/2 Ml Vial) 5 mg IVPUSH Q6H PRN PRN Reason: Nausea and Vomiting Last Admin: 09/24/25 19:28 Dose: 5 mg Documented By: ISMAEL Pyridoxine HCl (Pyridoxine Hcl (Vitamin B6) 50 Mg Tablet) 100 mg PO DAILY [facility] Last Admin: 09/25/25 07:47 Dose: 100 mg Documented By: STACIE Sertraline HCl (Sertraline Hcl 25 Mg Tablet) 25 mg PO DAILY [facility] Last Admin: 09/25/25 07:47 Dose: 25 mg Documented By: STACIE Sodium Chloride (0.9 % Sodium Chloride Flush 3 Ml Syringe) 3 ml IVFLUSH QSHIFT [facility] Last Admin: 09/25/25 07:05 Dose: Not Given Documented By: STACIE Non-Admin Reason: IV Running Labs 09/25/25 08:19 09/25/25 08:20 Labs: Laboratory Results - last 24 hr 09/25/25 08:20 Anion Gap 17 Estim Creat Clear Calc 36.8 Estimated GFR 30 Random Glucose 81 Calcium 8.7 Assessment and Plan (1) Hemophilia A: Status: Chronic (2) Ureterolithiasis: Status: Acute (3) Hydronephrosis with renal and ureteral calculus obstruction: Status: Acute Assessment and Plan: 75 y/o man with a PMHx significant for, nephrolithiasis (uric acid requiring urological procedure in the past by Dr. Rose) who presents with: Left obstructive renal calculus with left hydroureter causing hematuria (resolved, please see picture latest urine sample on PE). Hold aspirin. NPO. Continue IV fluids. Pain control with Dilaudid IV. urology and hematology eval patient: plan: s/p cystoscopy, ureteroscopy, laser lithotripsy, stone basketing, stent placement. Patient has some soreness. LACY: Evaluated by Nephrology-recommended IV antibiotics for question of pyelonephritis IV fluid Monitor BMP closely. Hemophilia A. No joint pains or muscle hematomas. Hx a-flutter. No anticoagulation due to history of hematuria. ECG today showed sinus rhythm Continue dronedarone. Aspirin hold due to recent events of hematuria. Orthostatic hypotension. Continue midodrine. Chronic back pain due to old L2 vertebrae fracture. Lumbar MRI done today showed no spinal cord compression. Continue oxycodone and gabapentin. Hyperlipidemia. Continue simvastatin. Depression. Continue sertraline. CKD stage 3B. There is associated normal anion gap metabolic acidosis and hyperchloremia; CO2 is 18. Will check venous pH. Continue IV fluids. BPH. Continue finasteride. Chronic anemia. Continue to monitor. Hx thrombocytopenia. Platelets are normal today. Continue to monitor. Crohn disease. Status post ileostomy. Has a paristomal hernia. Code status: Full DVT prophylaxis: SCDs only ongoing need for hospitalization for left obstructive renal stone with left hydroureter and hematuria management with IV pain meds, IV fluids and evaluation by Urology Service for urological procedure. Quality Stroke Does the patient have a stroke diagnosis?: No VTE Prior VTE?: No VTE Risk Level:: Medical - moderate - high VTE Device Contraindication: N/A - Device Ordered VTE Drug Contraindication: Treatment Not Tolerated
[2025-09-25 19:03] VITALS: BP 121/59; PULSE 96; RESP 18; TEMP 36.9; O2SAT 95
[2025-09-25] MEDS: 0.9 % Sodium Chloride Flush 3 ML SYRINGE IVFLUSH (20:57)
[2025-09-25 23:49] VITALS: BP 142/64; PULSE 96; RESP 20; TEMP 36.5; O2SAT 93
[2025-09-26] MEDS: oxyCODONE HCl Immed Release 5 MG TABLET PO ×4 (00:05→20:25)
[2025-09-26 03:03] VITALS: BP 136/65; PULSE 90; RESP 18; TEMP 36.7; O2SAT 93
[2025-09-26 05:53] LABS: Anion Gap 12 (12-20); Blood Urea Nitrogen 25 mg/dL (9-16); Calcium 8.2 mg/dL (8.4-10.2); Carbon Dioxide 19 mmol/L (22-29); Chloride 113 mmol/L (96-108); Creatinine Clr Calc Pharmacy 31.6; Estimated Glomerular Filt Rate 25; Potassium 3.6 mmol/L (3.3-5.1); Sodium 140 mmol/L (135-145)
[2025-09-26] MEDS: 0.9 % Sodium Chloride Flush 3 ML SYRINGE IVFLUSH (07:41)
[2025-09-26] MEDS: Calcium + Vitamin D 250 MG TABLET 500 MG PO (07:42)
[2025-09-26 08:00] VITALS: BP 142/71; PULSE 87; RESP 16; TEMP 37; O2SAT 96
--- NOTE | 2025-09-26 11:49 | MHC.CM.PN ---
Patient not medically cleared for dc. CM will continue to follow.
[2025-09-26 12:00] VITALS: BP 130/60; PULSE 95; RESP 18; TEMP 36.8; O2SAT 96
--- NOTE | 2025-09-26 13:59 | HO.PM.IMPN ---
Subjective Subjective Date of Service: 09/26/25 Interval History: lacy worsening Review of Systems abd pain seems improving no new c/o. Review of Systems: Yes all other systems are reviewed and are negative Physical Exam Vital Signs: Vital Signs: Last Vital Signs Temp 98.6 F 09/26/25 08:00 Pulse 87 09/26/25 08:00 Resp 16 09/26/25 08:00 BP 142/71 H 09/26/25 08:00 Pulse Ox 96 09/26/25 08:00 O2 Del Method Room Air 09/26/25 08:00 O2 Flow Rate 6 09/24/25 14:55 BMI result Body Mass Index 32.1 Appearance: Alert.? Oriented X3. cvs: rrr, [id number] . res: clear to auscultation ,no rhonchii or wheezing abd: no rebound or guarding ,nt, bs present. left flank soarness ext pulses present , no cyanosis. neuro: axo3 , nonfocal Objective Data Active Medications Acetaminophen (Acetaminophen 325 Mg Tablet) 650 mg PO Q6H PRN PRN Reason: Pain, Mild 1-3,fever,headache Last Admin: 09/24/25 08:25 Dose: 650 mg Documented By: OSMAR Calcium Carbonate (Calcium Carbonate 750 Mg Tab.Chew) 750 mg PO Q4H PRN PRN Reason: Heartburn Calcium Carbonate/Cholecalciferol (Calcium + Vitamin D 250 Mg Tablet) 500 mg PO DAILY [facility] Last Admin: 09/26/25 07:42 Dose: 500 mg Documented By: LAUREL Cyanocobalamin (Vitamin B12) (Cyanocobalamin (Vitamin B-12) 1,000 Mcg Tablet) 1,000 mcg PO DAILY [facility] Last Admin: 09/26/25 07:42 Dose: 1,000 mcg Documented By: LAUREL Dronedarone (Dronedarone Hcl 400 Mg Tablet) 400 mg PO BID [facility] Last Admin: 09/26/25 07:42 Dose: 400 mg Documented By: LAUREL Finasteride (Finasteride 5 Mg Tablet) 5 mg PO DAILY [facility] Last Admin: 09/26/25 07:42 Dose: 5 mg Documented By: LAUREL Folic Acid (Folic Acid 1 Mg Tablet) 1 mg PO DAILY [facility] Last Admin: 09/26/25 07:42 Dose: 1 mg Documented By: LAUREL Gabapentin (Gabapentin 300 Mg Capsule) 300 mg PO BEDTIME [facility] Last Admin: 09/25/25 20:57 Dose: 300 mg Documented By: KE Hydromorphone HCl (Hydromorphone Hcl 1 Mg/Ml Syringe) 0.75 mg IVPUSH Q3H PRN; Protocol PRN Reason: Pain, Severe (Pain Scale 7-10) Last Admin: 09/26/25 10:47 Dose: 0.75 mg Documented By: ZAIRE Ceftriaxone Sodium 1 gm/ (Sodium Chloride) 50 mls @ 100 mls/hr IV Q24H [facility] Last Infusion: 09/25/25 16:06 Dose: Infused Documented By: STACIE Sodium Chloride (Ns) 1,000 mls @ 100 mls/hr IVCONT .Q10H [facility] Last Admin: 09/26/25 11:12 Dose: 100 mls/hr Documented By: ZAIRE Magnesium Hydroxide (Milk Of Magnesia 30 Ml Oral.Susp) 30 ml PO DAILY PRN PRN Reason: Constipation Melatonin (Melatonin 3 Mg Tablet) 6 mg PO BEDTIME PRN PRN Reason: Insomnia Midodrine (Midodrine Hcl 2.5 Mg Tablet) 2.5 mg PO TID PRN PRN Reason: hypotension Naloxone HCl (Naloxone Hcl 0.4 Mg/Ml Vial) 0.04 mg IVPUSH Q5M PRN PRN Reason: Excessive sedation or RR < 8 Nystatin (Nystatin Powder 15 Gm Bottle) 1 appl TOPICAL DAILY PRN; Protocol PRN Reason: Skin Irritation Oxycodone HCl (Oxycodone Hcl Immed Release 5 Mg Tablet) 5 mg PO Q6H PRN PRN Reason: Pain, Moderate(Pain Scale 4-6) Last Admin: 09/26/25 00:05 Dose: 5 mg Documented By: KE Oxycodone HCl (Oxycodone Hcl Immed Release 5 Mg Tablet) 5 mg PO Q4H PRN PRN Reason: Pain, Mild (Pain Scale 1-3) Last Admin: 09/26/25 12:53 Dose: 5 mg Documented By: LAUREL Prochlorperazine Edisylate (Prochlorperazine Edisylate 10 Mg/2 Ml Vial) 5 mg IVPUSH Q6H PRN PRN Reason: Nausea and Vomiting Last Admin: 09/24/25 19:28 Dose: 5 mg Documented By: ISMAEL Pyridoxine HCl (Pyridoxine Hcl (Vitamin B6) 50 Mg Tablet) 100 mg PO DAILY [facility] Last Admin: 09/26/25 07:42 Dose: 100 mg Documented By: LAUREL Sertraline HCl (Sertraline Hcl 25 Mg Tablet) 25 mg PO DAILY [facility] Last Admin: 09/26/25 07:42 Dose: 25 mg Documented By: LAUREL Sodium Bicarbonate (Sodium Bicarbonate 650 Mg Tablet) 650 mg PO BID [facility] Last Admin: 09/26/25 07:42 Dose: 650 mg Documented By: LAUREL Sodium Chloride (0.9 % Sodium Chloride Flush 3 Ml Syringe) 3 ml IVFLUSH QSHIFT [facility] Last Admin: 09/26/25 07:41 Dose: 3 ml Documented By: LAUREL Labs 09/25/25 08:19 09/26/25 06:09 Labs: Laboratory Results - last 24 hr 09/26/25 09/26/25 05:26 06:09 Hold Purple Top SEE NOTE Anion Gap 12 Estim Creat Clear Calc 31.6 Estimated GFR 25 Random Glucose 107 Calcium 8.2 L Microbiology Microbiology Results: Microbiology 09/25/25 21:50 Urine Culture - Preliminary Urine Other - Kidney Left No growth to date. Assessment and Plan (1) Hemophilia A: Status: Chronic (2) Ureterolithiasis: Status: Acute (3) Hydronephrosis with renal and ureteral calculus obstruction: Status: Acute Assessment and Plan: 75 y/o man with a PMHx significant for, nephrolithiasis (uric acid requiring urological procedure in the past by Dr. Rose) who presents with: lacy on CKD stage 3B. Urinalysis showing no protein, no WBC, positive blood possibly from nephrolithiasis He underwent a ureteroscopy, left-sided laser lithotripsy with stent placement on 09/24/2025. d/w nephro:added renal sono continue ivf , monitor renal function and electrolytes closely. Left obstructive renal calculus with left hydroureter causing hematuria (resolved, please see picture latest urine sample on PE). Hold aspirin. NPO. Continue IV fluids. Pain control with Dilaudid IV. urology and hematology eval patient: plan: s/p cystoscopy, ureteroscopy, laser lithotripsy, stone basketing, stent placement. Patient has some soreness. LACY: Evaluated by Nephrology-recommended IV antibiotics for question of pyelonephritis IV fluid Monitor BMP closely. Hemophilia A. No joint pains or muscle hematomas. Hx a-flutter. No anticoagulation due to history of hematuria. ECG today showed sinus rhythm Continue dronedarone. Aspirin hold due to recent events of hematuria. Orthostatic hypotension. Continue midodrine. Chronic back pain due to old L2 vertebrae fracture. Lumbar MRI done today showed no spinal cord compression. Continue oxycodone and gabapentin. Hyperlipidemia. Continue simvastatin. Depression. Continue sertraline. BPH. Continue finasteride. Chronic anemia. Continue to monitor. Hx thrombocytopenia. Platelets are normal today. Continue to monitor. Crohn disease. Status post ileostomy. Has a paristomal hernia. Code status: Full DVT prophylaxis: SCDs only ongoing need for hospitalization for left obstructive renal stone with left hydroureter and hematuria management with IV pain meds, IV fluids and evaluation by Urology Service for urological procedure. Quality Stroke Does the patient have a stroke diagnosis?: No VTE Prior VTE?: No VTE Risk Level:: Medical - moderate - high VTE Device Contraindication: N/A - Device Ordered VTE Drug Contraindication: Treatment Not Tolerated
--- NOTE | 2025-09-26 14:45 | P.PNNP_ITS ---
Subjective Subjective Date of Service: 09/26/25 Interval history: Renal function continues to worsen, creatinine up to 2.52 Urine output about 1400 cc, intake 3750 Physical Exam 2 Vital Signs: Vital Signs: Last Vital Signs Temp 98.6 F 09/26/25 08:00 Pulse 87 09/26/25 08:00 Resp 16 09/26/25 08:00 BP 142/71 H 09/26/25 08:00 Pulse Ox 96 09/26/25 08:00 O2 Del Method Room Air 09/26/25 08:00 O2 Flow Rate 6 09/24/25 14:55 BMI result Body Mass Index 32.1 General: not in any acute distress, ill appearing Nutritional Appearance: well nourished and overweight Eyes: appearance normal, both eyes and all related structures; Alignment and Position: alignment normal and position normal Neck: No lymphadenopathy, no thyromegaly Resp: bilateral air entry equal, no added sounds present Cardio: Regular rate, regular rhythm; Heart sounds: S1 normal heart sound present and S2 normal heart sound present GI: soft, nontender, no guarding, no hepatosplenomegaly : bladder normal to inspection, bladder normal to palpation, no renal angle tenderness Skin: no rashes or lesions noted and elasticity normal Neuro: alert, oriented x 3, moves all extremities Objective Data Labs 09/25/25 08:19 09/26/25 06:09 Labs: Laboratory Results - last 24 hr 09/26/25 09/26/25 05:26 06:09 Hold Purple Top SEE NOTE Sodium 140 Potassium 3.6 Chloride 113 H Carbon Dioxide 19 L Anion Gap 12 BUN 25 H Creatinine 2.52 H Estim Creat Clear Calc 31.6 Estimated GFR 25 Random Glucose 107 Calcium 8.2 L Microbiology Microbiology Results: Microbiology 09/25/25 21:50 Urine Other - Kidney Left Urine Culture - Preliminary No growth to date. Procedures Date of Service Date of Service: 09/26/25 Assessment & Plan Assessment and plan (1) Atrial fibrillation: Status: Acute (2) Essential hypertension: Status: Acute (3) Acute kidney injury superimposed on CKD: Status: Acute Plan Acute on chronic kidney disease: Left-sided hydroureter with possible pyelonephritis: Patient has a baseline creatinine about 1.4, continues to increase, up to 2.52 this morning despite relief of the obstruction possibly suggesting patient has a tubular injury from obstructive uropathy Urinalysis showing no protein, no WBC, positive blood possibly from nephrolithiasis Status post ureteroscopy, left-sided laser lithotripsy with stent placement on 09/24/2025. Continue ceftriaxone and can reduce the LR to 50 cc/hr; keep net fluid balance positive; we will continue to closely trend the renal function. Repeat ultrasound showed cluster of calculi but no hydronephrosis. Avoid nephrotoxic agents,ACEi/ARB, contrast, NSAIDs Closely monitor I's and os Time Spent With Patient Time: Total time managing care of this patient today ____ minutes. Progress Note: Quality Stroke Does the patient have a stroke diagnosis?: No
[2025-09-26 16:00] VITALS: BP 146/66; PULSE 94; RESP 18; TEMP 37.1; O2SAT 95
[2025-09-26 16:24] VITALS: BP 141/75; PULSE 78; RESP 22; TEMP 36.7; O2SAT 93
[2025-09-26 19:54] VITALS: BP 144/65; PULSE 101; RESP 18; TEMP 37.2; O2SAT 94
[2025-09-27] VITALS (7 sets, daily range): BP systolic 118–154; BP diastolic 54–70; PULSE 90–98; RESP 16–18; TEMP 36.4–37; O2SAT 94–97
[2025-09-27] MEDS: Calcium + Vitamin D 250 MG TABLET 500 MG PO (07:53)
[2025-09-27 08:10] LABS: EOS Counted 0 CELLS; EOS QC POS YES; EOS Stain Quality OK YES; WBC, Counted 100 CELLS
[2025-09-27 09:18] LABS: Anion Gap 13 (12-20); Blood Urea Nitrogen 24 mg/dL (9-16); Calcium 7.9 mg/dL (8.4-10.2); Carbon Dioxide 16 mmol/L (22-29); Chloride 116 mmol/L (96-108); Creatinine Clr Calc Pharmacy 28.7; Estimated Glomerular Filt Rate 23; Potassium 3.8 mmol/L (3.3-5.1); Sodium 141 mmol/L (135-145)
--- NOTE | 2025-09-27 12:35 | P.PNNP_ITS ---
Subjective Subjective Date of Service: 09/27/25 Interval history: No new complaints Creatinine increased to 2.77 this morning from 2.5 yesterday Urine output about 500 cc yesterday Physical Exam 2 Vital Signs: Vital Signs: Last Vital Signs Temp 98.2 F 09/27/25 08:00 Pulse 96 09/27/25 08:00 Resp 18 09/27/25 08:00 BP 154/68 H 09/27/25 08:00 Pulse Ox 95 09/27/25 08:00 O2 Del Method Room Air 09/27/25 08:00 O2 Flow Rate 6 09/24/25 14:55 BMI result Body Mass Index 32.1 General: not in any acute distress, ill appearing Nutritional Appearance: well nourished and overweight Eyes: appearance normal, both eyes and all related structures; Alignment and Position: alignment normal and position normal Neck: No lymphadenopathy, no thyromegaly Resp: bilateral air entry equal, no added sounds present Cardio: Regular rate, regular rhythm; normal S1-S2 GI: soft, nontender, no guarding, no hepatosplenomegaly : bladder normal to inspection, bladder normal to palpation, no renal angle tenderness Skin: no rashes or lesions noted and elasticity normal Neuro: alert, oriented x 3, moves all extremities Objective Data Labs 09/25/25 08:19 09/27/25 08:34 Labs: Laboratory Results - last 24 hr 09/26/25 09/27/25 17:22 08:34 Sodium 141 Potassium 3.8 Chloride 116 H Carbon Dioxide 16 L Anion Gap 13 BUN 24 H Creatinine 2.77 H Estim Creat Clear Calc 28.7 Estimated GFR 23 Random Glucose 161 H Calcium 7.9 L Urine Eosinophils % 0.0 Microbiology Microbiology Results: Microbiology 09/25/25 21:50 Urine Other - Kidney Left Urine Culture - Final No growth. Procedures Date of Service Date of Service: 09/27/25 Assessment & Plan Assessment and plan (1) Acute kidney injury superimposed on CKD: Status: Acute (2) Ureterolithiasis: Status: Acute Plan Acute on chronic kidney disease: Left-sided hydroureter with possible pyelonephritis: Patient has a baseline creatinine about 1.4, continues to increase, up to 2.77 this morning despite relief of the obstruction possibly suggesting patient has a tubular injury from obstructive uropathy. However the put trend has slightly slowed down todaty. Urinalysis showing no protein, no WBC, positive blood possibly from nephrolithiasis Status post ureteroscopy, left-sided laser lithotripsy with stent placement on 09/24/2025. Continue ceftriaxone and can stop IV fluids and encourage oral fluid intake Has history of gout with high uric acid levels, please recheck uric acid levels to see if it is contributing to LACY Can increase sodium bicarbonate 650 mg to TID Repeat ultrasound showed cluster of calculi but no hydronephrosis. Avoid nephrotoxic agents,ACEi/ARB, contrast, NSAIDs Closely monitor I's and os Time Spent With Patient Time: Total time managing care of this patient today ____ minutes. Progress Note: Quality Stroke Does the patient have a stroke diagnosis?: No
[2025-09-27] MEDS: oxyCODONE HCl Immed Release 5 MG TABLET PO ×2 (12:49→23:14)
[2025-09-27 13:13] LABS: Alanine Aminotransferase 13 U/L (0-40); Albumin Level 3.0 g/dL (3.5-5.0); Alkaline Phosphatase 51 U/L (39-117); Aspartate Amino Transferase 20 U/L (5-37); Total Protein 5.6 g/dL (6.5-8.0); Uric Acid 9.3 mg/dL (3.4-7.0)
[2025-09-27 16:06] LABS: Uric Acid 9.4 mg/dL (3.4-7.0)
[2025-09-27] MEDS: 0.9 % Sodium Chloride Flush 3 ML SYRINGE IVFLUSH ×2 (17:01→20:34)
[2025-09-28] VITALS (7 sets, daily range): BP systolic 122–147; BP diastolic 58–70; PULSE 73–88; RESP 16–18; TEMP 36.1–37; O2SAT 93–96
[2025-09-28 06:31] LABS: Anion Gap 11 (12-20); Blood Urea Nitrogen 31 mg/dL (9-16); Calcium 8.2 mg/dL (8.4-10.2); Carbon Dioxide 17 mmol/L (22-29); Chloride 114 mmol/L (96-108); Creatinine Clr Calc Pharmacy 26.5; Estimated Glomerular Filt Rate 21; Potassium 4.1 mmol/L (3.3-5.1); Sodium 138 mmol/L (135-145)
[2025-09-28] MEDS: Calcium + Vitamin D 250 MG TABLET 500 MG PO (07:47)
[2025-09-28] MEDS: 0.9 % Sodium Chloride Flush 3 ML SYRINGE IVFLUSH ×4 (07:48→21:30)
[2025-09-28] MEDS: oxyCODONE HCl Immed Release 5 MG TABLET PO ×3 (07:53→23:44)
--- NOTE | 2025-09-28 14:58 | P.PNNP_ITS ---
Subjective Subjective Date of Service: 09/28/25 Interval history: No new complaints creatinine upto 3.0, urine output 6.0 Physical Exam 2 Vital Signs: Vital Signs: Last Vital Signs Temp 97.4 F 09/28/25 12:00 Pulse 78 09/28/25 12:00 Resp 16 09/28/25 12:00 BP 122/58 L 09/28/25 12:00 Pulse Ox 94 09/28/25 12:00 O2 Del Method Room Air 09/28/25 12:00 O2 Flow Rate 6 09/24/25 14:55 BMI result Body Mass Index 32.1 General: not in any acute distress, ill appearing Nutritional Appearance: well nourished and overweight Eyes: appearance normal, both eyes and all related structures Neck: No lymphadenopathy, no thyromegaly Resp: bilateral air entry equal, no added sounds present Cardio: Regular rate, regular rhythm; S1, S2 normal GI: soft, nontender, no guarding, no hepatosplenomegaly : bladder normal to inspection, bladder normal to palpation, no renal angle tenderness Skin: no rashes or lesions noted and elasticity normal Neuro: alert, oriented x 3, moves all extremities Objective Data Labs 09/25/25 08:19 09/28/25 05:36 Labs: Laboratory Results - last 24 hr 09/27/25 09/28/25 15:47 05:36 Hold Purple Top SEE NOTE Sodium 138 Potassium 4.1 Chloride 114 H Carbon Dioxide 17 L Anion Gap 11 L BUN 31 H Creatinine 3.00 H Estim Creat Clear Calc 26.5 Estimated GFR 21 Random Glucose 132 H Uric Acid 9.4 H Calcium 8.2 L Microbiology Microbiology Results: Microbiology 09/25/25 21:50 Urine Other - Kidney Left Urine Culture - Final No growth. Procedures Date of Service Date of Service: 09/28/25 Assessment & Plan Assessment and plan (1) Essential hypertension: Status: Acute (2) Acute kidney injury superimposed on CKD: Status: Acute (3) Renal stones: Status: Acute Plan Acute on chronic kidney disease: Left-sided hydroureter with possible pyelonephritis: Patient has a baseline creatinine about 1.4, continues to increase, up to 3.0 this morning despite relief of the obstruction possibly suggesting patient has a tubular injury from obstructive uropathy. Urinalysis showing no protein, no WBC, positive blood possibly from nephrolithiasis Status post ureteroscopy, left-sided laser lithotripsy with stent placement on 09/24/2025. Continue ceftriaxone; encourage oral fluid intake Has history of gout with high uric acid levels 9.4, will add alluopurinol; please look for any signs of allergy/rashes. Can increase sodium bicarbonate 650 mg to TID Repeat ultrasound showed cluster of calculi but no hydronephrosis. Avoid nephrotoxic agents,ACEi/ARB, contrast, NSAIDs Closely monitor I's and os Time Spent With Patient Time: Total time managing care of this patient today ____ minutes. Progress Note: Quality Stroke Does the patient have a stroke diagnosis?: No
--- NOTE | 2025-09-28 15:07 | HO.PM.IMPN ---
Subjective Subjective Date of Service: 09/28/25 Interval History: gout flare lacy on ckd Review of Systems leg pains seems Physical Exam Exam: Exam: Appearance: Alert.? Oriented X3. cvs: rrr, [id number] . res: clear to auscultation ,no rhonchii or wheezing abd: no rebound or guarding ,nt, bs present. left flank soarness ext pulses present , no cyanosis. neuro: axo3 , nonfocal Vital Signs: Vital Signs: Last Vital Signs Temp 97.4 F 09/28/25 12:00 Pulse 78 09/28/25 12:00 Resp 16 09/28/25 12:00 BP 122/58 L 09/28/25 12:00 Pulse Ox 94 09/28/25 12:00 O2 Del Method Room Air 09/28/25 12:00 O2 Flow Rate 6 09/24/25 14:55 BMI result Body Mass Index 32.1 Objective Data Active Medications Acetaminophen (Acetaminophen 325 Mg Tablet) 650 mg PO Q6H PRN PRN Reason: Pain, Mild 1-3,fever,headache Last Admin: 09/27/25 07:52 Dose: 650 mg Documented By: CASSY Allopurinol (Allopurinol 100 Mg Tablet) 100 mg PO DAILY COUNT INCLUDES [facility] Calcium Carbonate (Calcium Carbonate 750 Mg Tab.Chew) 750 mg PO Q4H PRN PRN Reason: Heartburn Calcium Carbonate/Cholecalciferol (Calcium + Vitamin D 250 Mg Tablet) 500 mg PO DAILY [facility]CLUDES [facility] Last Admin: 09/28/25 07:47 Dose: 500 mg Documented By: CASSY Cyanocobalamin (Vitamin B12) (Cyanocobalamin (Vitamin B-12) 1,000 Mcg Tablet) 1,000 mcg PO DAILY COUNT [facility]CLUDES [facility] Last Admin: 09/28/25 07:46 Dose: 1,000 mcg Documented By: CASSY Docusate Sodium (Docusate Sodium 100 Mg Capsule) 100 mg PO BID PRN PRN Reason: Constipation Dronedarone (Dronedarone Hcl 400 Mg Tablet) 400 mg PO BID COUNT INCLUDES [facility] Last Admin: 09/28/25 07:46 Dose: 400 mg Documented By: CASSY Finasteride (Finasteride 5 Mg Tablet) 5 mg PO DAILY COUNT [facility]CLUDES [facility] Last Admin: 09/28/25 07:47 Dose: 5 mg Documented By: CASSY Folic Acid (Folic Acid 1 Mg Tablet) 1 mg PO DAILY COUNT [facility]CLUDES [facility] Last Admin: 09/28/25 07:46 Dose: 1 mg Documented By: CASSY Gabapentin (Gabapentin 300 Mg Capsule) 300 mg PO BEDTIME COUNT [facility]CLUDES [facility] Last Admin: 09/27/25 20:34 Dose: 300 mg Documented By: ZULMA Hydromorphone HCl (Hydromorphone Hcl 1 Mg/Ml Syringe) 0.75 mg IVPUSH Q3H PRN; Protocol PRN Reason: Pain, Severe (Pain Scale 7-10) Last Admin: 09/28/25 03:39 Dose: 0.75 mg Documented By: ZULMA Ceftriaxone Sodium 1 gm/ (Sodium Chloride) 50 mls @ 100 mls/hr IV Q24H COUNT INCLUDES [facility] Last Infusion: 09/27/25 17:31 Dose: Infused Documented By: CASSY Magnesium Hydroxide (Milk Of Magnesia 30 Ml Oral.Susp) 30 ml PO DAILY PRN PRN Reason: Constipation Melatonin (Melatonin 3 Mg Tablet) 6 mg PO BEDTIME PRN PRN Reason: Insomnia Last Admin: 09/27/25 00:42 Dose: 6 mg Documented By: LISS Midodrine (Midodrine Hcl 2.5 Mg Tablet) 2.5 mg PO TID PRN PRN Reason: hypotension Naloxone HCl (Naloxone Hcl 0.4 Mg/Ml Vial) 0.04 mg IVPUSH Q5M PRN PRN Reason: Excessive sedation or RR < 8 Nystatin (Nystatin Powder 15 Gm Bottle) 1 appl TOPICAL DAILY PRN; Protocol PRN Reason: Skin Irritation Oxycodone HCl (Oxycodone Hcl Immed Release 5 Mg Tablet) 5 mg PO Q4H PRN PRN Reason: Pain, Mild (Pain Scale 1-3) Last Admin: 09/28/25 11:59 Dose: 5 mg Documented By: CASSY Phenazopyridine HCl (Phenazopyridine Hcl 100 Mg Tablet) 100 mg PO BIDWM COUNT INCLUDES [facility] Stop: 09/28/25 17:01 Last Admin: 09/28/25 07:47 Dose: 100 mg Documented By: CASSY Prednisone (Prednisone 20 Mg Tablet) 40 mg PO DAILY COUNT [facility]CLUDES [facility] Last Admin: 09/28/25 07:47 Dose: 40 mg Documented By: CASYS Prochlorperazine Edisylate (Prochlorperazine Edisylate 10 Mg/2 Ml Vial) 5 mg IVPUSH Q6H PRN PRN Reason: Nausea and Vomiting Last Admin: 09/24/25 19:28 Dose: 5 mg Documented By: ISMAEL Pyridoxine HCl (Pyridoxine Hcl (Vitamin B6) 50 Mg Tablet) 100 mg PO DAILY COUNT [facility]CLUDES [facility] Last Admin: 09/28/25 07:47 Dose: 100 mg Documented By: CASSY Sertraline HCl (Sertraline Hcl 25 Mg Tablet) 25 mg PO DAILY COUNT [facility]CLUDES [facility] Last Admin: 09/28/25 07:46 Dose: 25 mg Documented By: CASSY Sodium Bicarbonate (Sodium Bicarbonate 650 Mg Tablet) 650 mg PO BID COUNT INCLUDES [facility] Last Admin: 09/28/25 07:47 Dose: 650 mg Documented By: CASSY Sodium Chloride (0.9 % Sodium Chloride Flush 3 Ml Syringe) 3 ml IVFLUSH QSHIFT COUNT INCLUDES [facility] Last Admin: 09/28/25 07:48 Dose: 3 ml Documented By: CASSY Labs 09/25/25 08:19 09/28/25 05:36 Labs: Laboratory Results - last 24 hr 09/27/25 09/28/25 15:47 05:36 Hold Purple Top SEE NOTE Anion Gap 11 L Estim Creat Clear Calc 26.5 Estimated GFR 21 Random Glucose 132 H Uric Acid 9.4 H Calcium 8.2 L Microbiology Microbiology Results: Microbiology 09/25/25 21:50 Urine Culture - Final Urine Other - Kidney Left No growth. Assessment and Plan (1) Acute kidney injury superimposed on CKD: Status: Acute Assessment and Plan: 75 y/o man with a PMHx significant for, nephrolithiasis (uric acid requiring urological procedure in the past by Dr. Rose) who presents with: lacy on CKD stage 3B. Urinalysis showing no protein, no WBC, positive blood possibly from nephrolithiasis He underwent a ureteroscopy, left-sided laser lithotripsy with stent placement on 09/24/2025. d/w nephro:added renal sono continue ivf , monitor renal function and electrolytes closely. Left obstructive renal calculus with left hydroureter causing hematuria ). urology and hematology eval patient: plan: s/p cystoscopy, ureteroscopy, laser lithotripsy, stone basketing, stent placement. LACY: baseline creatinine about 1.4, continues to increase, up to 3.0 this morning despite relief of the obstruction possibly suggesting patient has a tubular injury from obstructive uropathy. Urinalysis showing no protein, no WBC, positive blood possibly from nephrolithiasis,Status post ureteroscopy, left-sided laser lithotripsy with stent placement on 09/24/2025. Repeat ultrasound showed cluster of calculi but no hydronephrosis. Discussed with Nephro: Received IV fluids no improvement in the renal function so far. Continue ceftriaxone; encourage oral fluid intake. increase sodium bicarbonate 650 mg to TID Hemophilia A. No joint pains or muscle hematomas. Avoid nephrotoxic agents,ACEi/ARB, contrast, NSAIDs Closely monitor I's and os Acute gout flare: Elevated uric acid/also radiological evidence of gout foot xray . right knee effusion?-added ortho eval. continue to moniter ,added prednisone for gout flare ,also will consider adding allpurinol Hx a-flutter. No anticoagulation due to history of hematuria. ECG today showed sinus rhythm Continue dronedarone. Aspirin hold due to recent events of hematuria. Orthostatic hypotension. Continue midodrine. Chronic back pain due to old L2 vertebrae fracture. Lumbar MRI done today showed no spinal cord compression. Continue oxycodone and gabapentin. Hyperlipidemia. Continue simvastatin. Depression. Continue sertraline. BPH. Continue finasteride. Chronic anemia. Continue to monitor. Hx thrombocytopenia. Platelets are normal today. Continue to monitor. Crohn disease. Status post ileostomy. Has a paristomal hernia. Code status: Full DVT prophylaxis: SCDs only ongoing need for hospitalization for left obstructive renal stone with left hydroureter and hematuria management , now LACY on CKD, need close monitoring of renal function electrolytes as well as I&O. Quality Stroke Does the patient have a stroke diagnosis?: No VTE Prior VTE?: No VTE Risk Level:: Medical - moderate - high VTE Device Contraindication: N/A - Device Ordered VTE Drug Contraindication: Treatment Not Tolerated
[2025-09-29 03:26] VITALS: BP 132/63; PULSE 72; RESP 18; TEMP 36.2; O2SAT 94
[2025-09-29 07:46] VITALS: BP 131/63; PULSE 83; RESP 16; TEMP 36.7; O2SAT 94
[2025-09-29 08:51] LABS: Anion Gap 12 (12-20); Blood Urea Nitrogen 50 mg/dL (9-16); Calcium 8.9 mg/dL (8.4-10.2); Carbon Dioxide 21 mmol/L (22-29); Chloride 112 mmol/L (96-108); Creatinine Clr Calc Pharmacy 28.1; Estimated Glomerular Filt Rate 22; Potassium 4.5 mmol/L (3.3-5.1); Sodium 140 mmol/L (135-145)
[2025-09-29] MEDS: Calcium + Vitamin D 250 MG TABLET 500 MG PO (08:52)
[2025-09-29] MEDS: oxyCODONE HCl Immed Release 5 MG TABLET PO ×4 (08:57→23:30)
--- NOTE | 2025-09-29 11:19 | P.PNNP_ITS ---
Subjective Subjective Date of Service: 09/29/25 Interval history: no new events urine output about 1500cc creatinine trending down to 2.83 this morning Physical Exam 2 Vital Signs: Vital Signs: Last Vital Signs Temp 98.0 F 09/29/25 07:46 Pulse 83 09/29/25 07:46 Resp 16 09/29/25 07:46 BP 131/63 09/29/25 07:46 Pulse Ox 94 09/29/25 07:46 O2 Del Method Room Air 09/29/25 07:46 O2 Flow Rate 6 09/24/25 14:55 BMI result Body Mass Index 32.1 General: not in any acute distress, ill appearing Nutritional Appearance: well nourished and overweight Eyes: appearance normal, both eyes and all related structures; Alignment and Position: alignment normal and position normal Neck: No lymphadenopathy, no thyromegaly Resp: bilateral air entry equal, no added sounds present Cardio: Regular rate, regular rhythm; normal S1 S2 GI: soft, nontender, no guarding, no hepatosplenomegaly : bladder normal to inspection, bladder normal to palpation, no renal angle tenderness Skin: no rashes or lesions noted and elasticity normal Neuro: alert, oriented x 3, moves all extremities Objective Data Labs 09/25/25 08:19 09/29/25 08:15 Labs: Laboratory Results - last 24 hr 09/28/25 09/29/25 05:36 08:15 Hold Purple Top SEE NOTE Sodium 140 Potassium 4.5 Chloride 112 H Carbon Dioxide 21 L Anion Gap 12 BUN 50 H Creatinine 2.83 H Estim Creat Clear Calc 28.1 Estimated GFR 22 Random Glucose 84 Estimat Average Glucose 103 Hemoglobin A1c % 5.2 Calcium 8.9 D Microbiology Microbiology Results: Microbiology 09/25/25 21:50 Urine Other - Kidney Left Urine Culture - Final No growth. Procedures Date of Service Date of Service: 09/29/25 Assessment & Plan Assessment and plan (1) Acute kidney injury superimposed on CKD: Status: Acute (2) Renal stones: Status: Acute (3) Hydronephrosis with renal and ureteral calculus obstruction: Status: Acute Plan Acute on chronic kidney disease: Left-sided hydroureter with possible pyelonephritis: Possibly secondary to tubular injury from obstructive uropathy currently in recovery phase. Patient has a baseline creatinine about 1.4, continues to increase, up to 3.0 yesterday, downtrending to 2.83 this morning. Urinalysis showing no protein, no WBC, positive blood possibly from nephrolithiasis Status post ureteroscopy, left-sided laser lithotripsy with stent placement on 09/24/2025. Continue ceftriaxone; encourage oral fluid intake Has history of gout with high uric acid levels 9.4, added alluopurinol yesterday, will increase to 300mg tomorrow if no signs of allergy continue sodium bicarbonate 650 mg TID can stop tomorrow if bicarb is imporving or stable given renal recovery Repeat ultrasound showed cluster of calculi but no hydronephrosis. Avoid nephrotoxic agents,ACEi/ARB, contrast, NSAIDs Closely monitor I's and os Time Spent With Patient Time: Total time managing care of this patient today ____ minutes. Progress Note: Quality Stroke Does the patient have a stroke diagnosis?: No
[2025-09-29 12:00] VITALS: BP 116/58; PULSE 84; RESP 18; TEMP 36.7; O2SAT 96
--- NOTE | 2025-09-29 13:56 | P.PNIM_ITS ---
Subjective Subjective Date of Service: 09/29/25 Interval History: gout flare ,lacy on ckd Review of Systems knee and foot pain similar cr improving Physical Exam 2 Exam: Exam: Appearance: Alert.? Oriented X3. cvs: rrr, [id number] . res: clear to auscultation ,no rhonchii or wheezing abd: no rebound or guarding ,nt, bs present. left flank soarness ext pulses present , no cyanosis. neuro: axo3 , nonfocal Vital Signs: Vital Signs: Last Vital Signs Temp 98.0 F 09/29/25 12:00 Pulse 84 09/29/25 12:00 Resp 18 09/29/25 12:00 BP 116/58 L 09/29/25 12:00 Pulse Ox 96 09/29/25 12:00 O2 Del Method Room Air 09/29/25 12:00 O2 Flow Rate 6 09/24/25 14:55 BMI result Body Mass Index 32.1 Objective Data Active Medications Acetaminophen (Acetaminophen 325 Mg Tablet) 650 mg PO Q6H PRN PRN Reason: Pain, Mild 1-3,fever,headache Last Admin: 09/27/25 07:52 Dose: 650 mg Documented By: CASSY Allopurinol (Allopurinol 100 Mg Tablet) 100 mg PO DAILY [facility] Last Admin: 09/29/25 08:52 Dose: 100 mg Documented By: CASSY Calcium Carbonate (Calcium Carbonate 750 Mg Tab.Chew) 750 mg PO Q4H PRN PRN Reason: Heartburn Calcium Carbonate/Cholecalciferol (Calcium + Vitamin D 250 Mg Tablet) 500 mg PO DAILY [facility] Last Admin: 09/29/25 08:52 Dose: 500 mg Documented By: CASSY Cyanocobalamin (Vitamin B12) (Cyanocobalamin (Vitamin B-12) 1,000 Mcg Tablet) 1,000 mcg PO DAILY [facility] Last Admin: 09/29/25 08:52 Dose: 1,000 mcg Documented By: CASSY Docusate Sodium (Docusate Sodium 100 Mg Capsule) 100 mg PO BID PRN PRN Reason: Constipation Dronedarone (Dronedarone Hcl 400 Mg Tablet) 400 mg PO BID [facility] Last Admin: 09/29/25 08:52 Dose: 400 mg Documented By: CASSY Finasteride (Finasteride 5 Mg Tablet) 5 mg PO DAILY [facility] Last Admin: 09/29/25 08:52 Dose: 5 mg Documented By: CASSY Folic Acid (Folic Acid 1 Mg Tablet) 1 mg PO DAILY [facility] Last Admin: 09/29/25 08:51 Dose: 1 mg Documented By: CASSY Gabapentin (Gabapentin 300 Mg Capsule) 300 mg PO BEDTIME [facility] Last Admin: 09/28/25 21:27 Dose: 300 mg Documented By: LISS Ceftriaxone Sodium 1 gm/ (Sodium Chloride) 50 mls @ 100 mls/hr IV Q24H [facility] Last Infusion: 09/28/25 16:18 Dose: Infused Documented By: CASSY Magnesium Hydroxide (Milk Of Magnesia 30 Ml Oral.Susp) 30 ml PO DAILY PRN PRN Reason: Constipation Melatonin (Melatonin 3 Mg Tablet) 6 mg PO BEDTIME PRN PRN Reason: Insomnia Last Admin: 09/27/25 00:42 Dose: 6 mg Documented By: LISS Midodrine (Midodrine Hcl 2.5 Mg Tablet) 2.5 mg PO TID PRN PRN Reason: hypotension Naloxone HCl (Naloxone Hcl 0.4 Mg/Ml Vial) 0.04 mg IVPUSH Q5M PRN PRN Reason: Excessive sedation or RR < 8 Nystatin (Nystatin Powder 15 Gm Bottle) 1 appl TOPICAL DAILY PRN; Protocol PRN Reason: Skin Irritation Oxycodone HCl (Oxycodone Hcl Immed Release 5 Mg Tablet) 5 mg PO Q4H PRN PRN Reason: Pain, Mild (Pain Scale 1-3) Last Admin: 09/29/25 13:16 Dose: 5 mg Documented By: CASSY Prednisone (Prednisone 20 Mg Tablet) 40 mg PO DAILY [facility] Last Admin: 09/29/25 08:51 Dose: 40 mg Documented By: CASSY Prochlorperazine Edisylate (Prochlorperazine Edisylate 10 Mg/2 Ml Vial) 5 mg IVPUSH Q6H PRN PRN Reason: Nausea and Vomiting Last Admin: 09/24/25 19:28 Dose: 5 mg Documented By: ISMAEL Pyridoxine HCl (Pyridoxine Hcl (Vitamin B6) 50 Mg Tablet) 100 mg PO DAILY [facility] Last Admin: 09/29/25 08:51 Dose: 100 mg Documented By: CASSY Sertraline HCl (Sertraline Hcl 25 Mg Tablet) 25 mg PO DAILY [facility] Last Admin: 09/29/25 08:51 Dose: 25 mg Documented By: CASSY Sodium Bicarbonate (Sodium Bicarbonate 650 Mg Tablet) 650 mg PO TID [facility] Last Admin: 09/29/25 08:52 Dose: 650 mg Documented By: CASSY Sodium Chloride (0.9 % Sodium Chloride Flush 3 Ml Syringe) 3 ml IVFLUSH QSHIFT [facility] Last Admin: 09/28/25 21:30 Dose: 3 ml Documented By: MAIALANDV Labs 09/25/25 08:19 09/29/25 08:15 Labs: Laboratory Results - last 24 hr 09/28/25 09/29/25 05:36 08:15 Hold Purple Top SEE NOTE Anion Gap 12 Estim Creat Clear Calc 28.1 Estimated GFR 22 Random Glucose 84 Estimat Average Glucose 103 Hemoglobin A1c % 5.2 Calcium 8.9 D Assessment and Plan (1) Acute kidney injury superimposed on CKD: Status: Acute Assessment and Plan: 75 y/o man with a PMHx significant for, nephrolithiasis (uric acid requiring urological procedure in the past by Dr. Rose) who presents with: lacy on CKD stage 3B. Urinalysis showing no protein, no WBC, positive blood possibly from nephrolithiasis He underwent a ureteroscopy, left-sided laser lithotripsy with stent placement on 09/24/2025. d/w nephro:added renal sono continue ivf , monitor renal function and electrolytes closely. Left obstructive renal calculus with left hydroureter causing hematuria ). urology and hematology eval patient: plan: s/p cystoscopy, ureteroscopy, laser lithotripsy, stone basketing, stent placement. LACY: baseline creatinine about 1.4, continues to increase, up to 3.0 this morning despite relief of the obstruction possibly suggesting patient has a tubular injury from obstructive uropathy. Urinalysis showing no protein, no WBC, positive blood possibly from nephrolithiasis,Status post ureteroscopy, left-sided laser lithotripsy with stent placement on 09/24/2025. Repeat ultrasound showed cluster of calculi but no hydronephrosis. Discussed with Nephro: Received IV fluids no improvement in the renal function so far. Producing urine, creatinine somewhat improving. Continue ceftriaxone; encourage oral fluid intake. increase sodium bicarbonate 650 mg to TID Hemophilia A. No joint pains or muscle hematomas. Avoid nephrotoxic agents,ACEi/ARB, contrast, NSAIDs Closely monitor I's and os Monitor renal function electrolytes Acute gout flare: Elevated uric acid/also radiological evidence of gout foot xray . right knee effusion?-added ortho eval. continue to moniter , prednisone for gout flare /allpurinol Hx a-flutter. No anticoagulation due to history of hematuria. ECG today showed sinus rhythm Continue dronedarone. Aspirin hold due to recent events of hematuria. Orthostatic hypotension. Continue midodrine. Chronic back pain due to old L2 vertebrae fracture. Lumbar MRI done today showed no spinal cord compression. Continue oxycodone and gabapentin. Hyperlipidemia. Continue simvastatin. Depression. Continue sertraline. BPH. Continue finasteride. Chronic anemia. Continue to monitor. Hx thrombocytopenia. Platelets are normal today. Continue to monitor. Crohn disease. Status post ileostomy. Has a paristomal hernia. Code status: Full DVT prophylaxis: SCDs only ongoing need for hospitalization for left obstructive renal stone with left hydroureter and hematuria management , now LACY on CKD, need close monitoring of renal function electrolytes as well as I&O. Quality Stroke Does the patient have a stroke diagnosis?: No VTE Prior VTE?: No VTE Risk Level:: Medical - moderate - high VTE Device Contraindication: N/A - Device Ordered VTE Drug Contraindication: Treatment Not Tolerated
--- NOTE | 2025-09-29 15:05 | MHC.CM.PN ---
PT NOT MEDICALLY CLEARED, PER PN, PT REQUIRES ONGOING TREATMENT OF L OBSTRUCTIVE RENAL STONE AND HEMATURIA. PT ALSO HAS LACY ON CKD REQUIRING CLOSE MONITORING OF RENAL FUNCTION, ELECTROLYTES AND I&O. CM FOLLOWING FOR CHANGING DC NEEDS
[2025-09-29] MEDS: 0.9 % Sodium Chloride Flush 3 ML SYRINGE IVFLUSH ×2 (15:13→21:43)
[2025-09-29 16:00] VITALS: BP 115/60; PULSE 80; RESP 16; TEMP 36.7; O2SAT 95
[2025-09-29 20:00] VITALS: BP 132/62; PULSE 77; RESP 18; TEMP 36.2; O2SAT 94
[2025-09-30] VITALS: BP 133/64; PULSE 80; RESP 18; TEMP 36.2; O2SAT 96
[2025-09-30] MEDS: oxyCODONE HCl Immed Release 5 MG TABLET PO ×4 (03:57→19:54)
[2025-09-30 04:00] VITALS: BP 147/70; PULSE 79; RESP 16; TEMP 36.2; O2SAT 97
[2025-09-30 08:00] VITALS: BP 138/63; PULSE 76; RESP 14; TEMP 36.4; O2SAT 95
[2025-09-30 09:01] LABS: Hematocrit 29.9 % (42.0-52.0); Hemoglobin 9.8 g/dl (14.0-18.0)
[2025-09-30 09:17] LABS: Anion Gap 12 (12-20); Blood Urea Nitrogen 55 mg/dL (9-16); Calcium 8.4 mg/dL (8.4-10.2); Carbon Dioxide 17 mmol/L (22-29); Chloride 114 mmol/L (96-108); Creatinine Clr Calc Pharmacy 28.1; Estimated Glomerular Filt Rate 22; Potassium 4.3 mmol/L (3.3-5.1); Sodium 139 mmol/L (135-145)
[2025-09-30] MEDS: 0.9 % Sodium Chloride Flush 3 ML SYRINGE IVFLUSH ×2 (09:51→19:56)
[2025-09-30] MEDS: Calcium + Vitamin D 250 MG TABLET 500 MG PO (09:52)
--- NOTE | 2025-09-30 11:28 | P.PNNP_ITS ---
Subjective Subjective Date of Service: 09/30/25 Interval history: No new complaints, doing okay Creatinine stable at 2.83 Physical Exam 2 Vital Signs: Vital Signs: Last Vital Signs Temp 97.6 F 09/30/25 08:00 Pulse 76 09/30/25 08:00 Resp 14 09/30/25 08:00 BP 138/63 09/30/25 08:00 Pulse Ox 95 09/30/25 08:00 O2 Del Method Room Air 09/30/25 08:00 O2 Flow Rate 6 09/24/25 14:55 BMI result Body Mass Index 32.1 General: not in any acute distress, ill appearing Nutritional Appearance: well nourished and overweight Eyes: appearance normal, both eyes and all related structures; Alignment and Position: alignment normal and position normal Neck: No lymphadenopathy, no thyromegaly Resp: bilateral air entry equal, no added sounds present Cardio: Regular rate, regular rhythm; Heart sounds: S1 normal heart sound present and S2 normal heart sound present GI: soft, nontender, no guarding, no hepatosplenomegaly : bladder normal to inspection, bladder normal to palpation, no renal angle tenderness Skin: no rashes or lesions noted and elasticity normal Neuro: alert, oriented x 3, moves all extremities Objective Data Labs 09/30/25 08:55 09/30/25 08:55 Labs: Laboratory Results - last 24 hr 09/24/25 09/30/25 00:03 08:55 Hgb 9.8 L Hct 29.9 L vWF VIII Activity 30 L Sodium 139 Potassium 4.3 Chloride 114 H Carbon Dioxide 17 L Anion Gap 12 BUN 55 H Creatinine 2.83 H Estim Creat Clear Calc 28.1 Estimated GFR 22 Random Glucose 86 Calcium 8.4 Microbiology Microbiology Results: Microbiology 09/25/25 21:50 Urine Other - Kidney Left Urine Culture - Final No growth. Procedures Date of Service Date of Service: 09/30/25 Assessment & Plan Assessment and plan (1) Acute kidney injury superimposed on CKD: Status: Acute (2) Gout: Status: Acute (3) BPH (benign prostatic hyperplasia): Status: Acute Plan Acute on chronic kidney disease: Left-sided hydroureter with possible pyelonephritis: Possibly secondary to tubular injury from obstructive uropathy currently in recovery phase. Patient has a baseline creatinine about 1.4, peaked at 3.0; downtrended to 2.83 but remained at 2.83 today. Will give him some IV fluids LR at 80cc/hr. Urinalysis showing no protein, no WBC, positive blood possibly from nephrolithiasis Status post ureteroscopy, left-sided laser lithotripsy with stent placement on 09/24/2025. Continue ceftriaxone; encourage oral fluid intake Has history of gout with high uric acid levels 9.4, alluopurinol Day 3 today, dose increased to 200mg continue sodium bicarbonate 650 mg TID Repeat ultrasound showed cluster of calculi but no hydronephrosis. Avoid nephrotoxic agents,ACEi/ARB, contrast, NSAIDs Closely monitor I's and os Time Spent With Patient Time: Total time managing care of this patient today ____ minutes. Progress Note: Quality Stroke Does the patient have a stroke diagnosis?: No
[2025-09-30 12:00] VITALS: BP 115/66; PULSE 87; RESP 14; TEMP 36.7; O2SAT 97
[2025-09-30] MEDS: Lactated Ringers 1,000 ML 80 ML IVCONT (12:47)
--- NOTE | 2025-09-30 14:44 | HO.PM.IMPN ---
Subjective Subjective Date of Service: 09/30/25 Interval History: gout flare ,lacy on ckd Review of Systems knee and foot pain improving cr similar Review of Systems: Yes all other systems are reviewed and are negative Physical Exam Exam: Exam: Appearance: Alert.? Oriented X3. cvs: rrr, [id number] . res: clear to auscultation ,no rhonchii or wheezing abd: no rebound or guarding ,nt, bs present. left flank soarness ext pulses present , no cyanosis. neuro: axo3 , nonfocal Vital Signs: Vital Signs: Last Vital Signs Temp 98.1 F 09/30/25 12:00 Pulse 87 09/30/25 12:00 Resp 14 09/30/25 12:00 BP 115/66 09/30/25 12:00 Pulse Ox 97 09/30/25 12:00 O2 Del Method Room Air 09/30/25 12:00 O2 Flow Rate 6 09/24/25 14:55 BMI result Body Mass Index 32.1 Objective Data Active Medications Acetaminophen (Acetaminophen 325 Mg Tablet) 650 mg PO Q6H PRN PRN Reason: Pain, Mild 1-3,fever,headache Last Admin: 09/27/25 07:52 Dose: 650 mg Documented By: CASSY Allopurinol (Allopurinol 100 Mg Tablet) 200 mg PO DAILY [facility] Calcium Carbonate (Calcium Carbonate 750 Mg Tab.Chew) 750 mg PO Q4H PRN PRN Reason: Heartburn Calcium Carbonate/Cholecalciferol (Calcium + Vitamin D 250 Mg Tablet) 500 mg PO DAILY [facility] Last Admin: 09/30/25 09:52 Dose: 500 mg Documented By: STACIE Cyanocobalamin (Vitamin B12) (Cyanocobalamin (Vitamin B-12) 1,000 Mcg Tablet) 1,000 mcg PO DAILY [facility] Last Admin: 09/30/25 09:51 Dose: 1,000 mcg Documented By: STACIE Docusate Sodium (Docusate Sodium 100 Mg Capsule) 100 mg PO BID PRN PRN Reason: Constipation Dronedarone (Dronedarone Hcl 400 Mg Tablet) 400 mg PO BID [facility] Last Admin: 09/30/25 09:51 Dose: 400 mg Documented By: STACIE Finasteride (Finasteride 5 Mg Tablet) 5 mg PO DAILY [facility] Last Admin: 09/30/25 09:51 Dose: 5 mg Documented By: STACIE Folic Acid (Folic Acid 1 Mg Tablet) 1 mg PO DAILY [facility] Last Admin: 09/30/25 09:52 Dose: 1 mg Documented By: STACIE Gabapentin (Gabapentin 300 Mg Capsule) 300 mg PO BEDTIME [facility] Last Admin: 09/29/25 21:43 Dose: 300 mg Documented By: ISMAEL Ceftriaxone Sodium 1 gm/ (Sodium Chloride) 50 mls @ 100 mls/hr IV Q24H [facility] Last Infusion: 09/29/25 15:42 Dose: Infused Documented By: CASSY Lactated Ringer's (Lr) 1,000 mls @ 80 mls/hr IVCONT .[id number] [facility] Last Admin: 09/30/25 12:47 Dose: 80 mls/hr Documented By: STACIE Magnesium Hydroxide (Milk Of Magnesia 30 Ml Oral.Susp) 30 ml PO DAILY PRN PRN Reason: Constipation Melatonin (Melatonin 3 Mg Tablet) 6 mg PO BEDTIME PRN PRN Reason: Insomnia Last Admin: 09/27/25 00:42 Dose: 6 mg Documented By: LISS Midodrine (Midodrine Hcl 2.5 Mg Tablet) 2.5 mg PO TID PRN PRN Reason: hypotension Naloxone HCl (Naloxone Hcl 0.4 Mg/Ml Vial) 0.04 mg IVPUSH Q5M PRN PRN Reason: Excessive sedation or RR < 8 Nystatin (Nystatin Powder 15 Gm Bottle) 1 appl TOPICAL DAILY PRN; Protocol PRN Reason: Skin Irritation Oxycodone HCl (Oxycodone Hcl Immed Release 5 Mg Tablet) 5 mg PO Q4H PRN PRN Reason: Pain, Mild (Pain Scale 1-3) Last Admin: 09/30/25 11:01 Dose: 5 mg Documented By: STACIE Prednisone (Prednisone 10 Mg Tablet) 30 mg PO DAILY [facility] Last Admin: 09/30/25 09:51 Dose: 30 mg Documented By: STACIE Prochlorperazine Edisylate (Prochlorperazine Edisylate 10 Mg/2 Ml Vial) 5 mg IVPUSH Q6H PRN PRN Reason: Nausea and Vomiting Last Admin: 09/24/25 19:28 Dose: 5 mg Documented By: ISMAEL Pyridoxine HCl (Pyridoxine Hcl (Vitamin B6) 50 Mg Tablet) 100 mg PO DAILY [facility] Last Admin: 09/30/25 09:52 Dose: 100 mg Documented By: STACIE Sertraline HCl (Sertraline Hcl 25 Mg Tablet) 25 mg PO DAILY [facility] Last Admin: 09/30/25 09:52 Dose: 25 mg Documented By: STACIE Sodium Bicarbonate (Sodium Bicarbonate 650 Mg Tablet) 650 mg PO TID [facility] Last Admin: 09/30/25 09:52 Dose: 650 mg Documented By: STACIE Sodium Chloride (0.9 % Sodium Chloride Flush 3 Ml Syringe) 3 ml IVFLUSH QSHIFT [facility] Last Admin: 09/30/25 09:51 Dose: 3 ml Documented By: STACIE Labs 09/30/25 08:55 09/30/25 08:55 Labs: Laboratory Results - last 24 hr 09/24/25 09/30/25 00:03 08:55 vWF VIII Activity 30 L Anion Gap 12 Estim Creat Clear Calc 28.1 Estimated GFR 22 Random Glucose 86 Calcium 8.4 Assessment and Plan (1) Acute kidney injury superimposed on CKD: Status: Acute Assessment and Plan: 75 y/o man with a PMHx significant for, nephrolithiasis (uric acid requiring urological procedure in the past by Dr. Rose) who presents with: lacy on CKD stage 3B. Urinalysis showing no protein, no WBC, positive blood possibly from nephrolithiasis He underwent a ureteroscopy, left-sided laser lithotripsy with stent placement on 09/24/2025. d/w nephro:added renal sono continue ivf , monitor renal function and electrolytes closely. Left obstructive renal calculus with left hydroureter causing hematuria ). urology and hematology eval patient: plan: s/p cystoscopy, ureteroscopy, laser lithotripsy, stone basketing, stent placement. LACY: baseline creatinine about 1.4, continues to increase, up to 3.0 this morning despite relief of the obstruction possibly suggesting patient has a tubular injury from obstructive uropathy. Urinalysis showing no protein, no WBC, positive blood possibly from nephrolithiasis,Status post ureteroscopy, left-sided laser lithotripsy with stent placement on 09/24/2025. Repeat ultrasound showed cluster of calculi but no hydronephrosis. Discussed with Nephro: Received IV fluids no improvement in the renal function so far. Producing urine, creatinine somewhat improving. Continue ceftriaxone; encourage oral fluid intake. increase sodium bicarbonate 650 mg to TID Hemophilia A. No joint pains or muscle hematomas. Avoid nephrotoxic agents,ACEi/ARB, contrast, NSAIDs Closely monitor I's and os Monitor renal function electrolytes Acute gout flare: Elevated uric acid/also radiological evidence of gout foot xray . right knee effusion?-added ortho eval. continue to moniter , prednisone for gout flare /allpurinol Hx a-flutter. No anticoagulation due to history of hematuria. ECG today showed sinus rhythm Continue dronedarone. Aspirin hold due to recent events of hematuria. Orthostatic hypotension. Continue midodrine. Chronic back pain due to old L2 vertebrae fracture. Lumbar MRI done today showed no spinal cord compression. Continue oxycodone and gabapentin. Hyperlipidemia. Continue simvastatin. Depression. Continue sertraline. BPH. Continue finasteride. Chronic anemia. Continue to monitor. Hx thrombocytopenia. Platelets are normal today. Continue to monitor. Crohn disease. Status post ileostomy. Has a paristomal hernia. Code status: Full DVT prophylaxis: SCDs only ongoing need for hospitalization for left obstructive renal stone with left hydroureter and hematuria management , now LACY on CKD, need close monitoring of renal function electrolytes as well as I&O. Quality Stroke Does the patient have a stroke diagnosis?: No VTE Prior VTE?: No VTE Risk Level:: Medical - moderate - high VTE Device Contraindication: N/A - Device Ordered VTE Drug Contraindication: Treatment Not Tolerated
[2025-09-30 15:47] VITALS: BP 121/68; PULSE 85; RESP 16; TEMP 36.9; O2SAT 96
[2025-09-30 19:31] VITALS: BP 145/67; PULSE 81; RESP 18; TEMP 36.8; O2SAT 95
[2025-10-01] VITALS: BP 132/63; PULSE 77; RESP 20; TEMP 37; O2SAT 97
[2025-10-01] MEDS: oxyCODONE HCl Immed Release 5 MG TABLET PO ×4 (01:12→14:19)
[2025-10-01] MEDS: Lactated Ringers 1,000 ML 80 ML IVCONT (01:14)
[2025-10-01 03:23] VITALS: BP 124/60; PULSE 68; RESP 16; TEMP 36.6; O2SAT 95
[2025-10-01 06:34] LABS: Anion Gap 13 (12-20); Blood Urea Nitrogen 55 mg/dL (9-16); Calcium 8.8 mg/dL (8.4-10.2); Carbon Dioxide 19 mmol/L (22-29); Chloride 114 mmol/L (96-108); Creatinine Clr Calc Pharmacy 30.6; Estimated Glomerular Filt Rate 24; Potassium 4.6 mmol/L (3.3-5.1); Sodium 141 mmol/L (135-145)
[2025-10-01 06:38] LABS: Hematocrit 33.2 % (42.0-52.0); Hemoglobin 10.7 g/dl (14.0-18.0); Mean Corpuscular HGB Conc 32.2 g/dl (31.0-36.0); Mean Corpuscular Hemoglobin 30.0 pg (27.0-33.0); Mean Corpuscular Volume 93.0 fL (80.0-98.0); NRBC Abs Auto 0.000 X10*3/uL (0.0-0.012); NRBC Pct Auto 0.0 /100WBC (0.0-0.2); Platelet Count 218 X10*3/uL (160-400); Red Blood Count 3.57 X10*6/uL (4.60-5.80); White Blood Count 8.3 X10*3/uL (4.8-10.8)
[2025-10-01] MEDS: Calcium + Vitamin D 250 MG TABLET 500 MG PO (07:19)
[2025-10-01 08:00] VITALS: BP 143/68; PULSE 73; RESP 14; TEMP 36.6; O2SAT 97
[2025-10-01 11:47] VITALS: BP 131/73; PULSE 79; RESP 14; TEMP 36.9; O2SAT 96
--- NOTE | 2025-10-01 12:01 | PM.DS ---
DS: Providers Provider Date of admission: 09/23/25 22:40 Date of discharge: 10/01/25 Primary care physician: Jennifer Parikh MD Consults: 09/23/25 22:39 Consult to Urology Routine Consulting [place] [facility] Reason for consultation: Hematuria, obstructive renal stone, left hydroureter Has provider been notified: Yes 09/24/25 00:21 Consult to Hematology / Oncology Routine Consulting Provider[place] [facility] [place] [facility] Reason for consultation: Hx hemophilia, obstructive renal calculi, need urological procedure Has provider been notified: No 09/25/25 09:11 Consult to Nephrology Routine Consulting Provider: [facility] Reason for consultation: Giovanny on ckd Has provider been notified: No DS: Diagnosis Discharge Diagnosis (1) Acute kidney injury superimposed on CKD: Status: Acute (2) Gout: Status: Acute (3) BPH (benign prostatic hyperplasia): Status: Acute DS: Summary Hospital Course Hospital Course: from initial hpi: 75 years old man with past medical history significant for hemophilia A, BPH, nephrolithiasis (uric acid requiring urological procedure in the past by Dr. Rose), thrombocytopenia, orthostatic hypotension, chronic back pain due to fracture of L2 vertebrae, a flutter on Multaq -not on anticoagulants due to hemophilia but does take baby aspirin, CKD stage III, Crohn's disease status post ileostomy, BPH, hyperlipidemia and depression presents to the emergency department complaining of one-week history of blood urine. Today he started to experience left back pain without radiations. He also has been nauseous and dry heaving. He denied headache, dizziness, fever, chills, chest pain, shortness on breath or cough. He denied alcohol abuse, tobacco smoking or illicit drug use. In the ED, he was found to have stable vital signs. Blood workup showed leukocytosis of 11.4. Hemoglobin is 12.8 and platelets 189. There are no significant electrolyte imbalances except for hyperchloremia 111 CO2 of 18. Anion gap is normal. BUN is 21 and creatinine 1.78. LFTs are normal. UA showed blood 3+, trace leukocyte steroids, bacteria none seen and RBC 6-10. Abdominal pelvis CT scan showed 1.6 cm stone in the left renal pelvic calcium and fullness of the collecting system, punctuated stone in the distal left ureter, left perinephric and periureteral stranding likely reactive and mild left hydroureter with tortuous appearance distally. New severe compression deformity of the L2 with 7 mm retropulsion into the spinal canal, cholelithiasis and large periosteal hernia. Lumbar MRI showed compression deformity of the L2 vertebral bodySTIR hyperintensity of the adjacent disc spaces and prevertebral soft tissues suggests an acute/subacute timeline. 7 mm retropulsion causes moderate spinal canal narrowing at this level. ED Tx: Morphine 8 mg total IV, LR 1 L bolus hospital course: Patient was admitted for acute kidney injury on CKD 3 due to obstructive uropathy due to kidney stone with left hydronephrosis. He underwent ureteroscopy with left-sided laser lithotripsy and stent placement on 09/24/2025. Was given IV fluids and creatinine has slowly plateaued in his now with slight improvement. He will continue to follow up outpatient with nephrology. For acute gout flare was continued on prednisone and we will continue 5 more days of prednisone 20 mg daily. For history of atrial flutter not on anticoagulation due to hemophilia A, but is on aspirin, was continued on Multaq. For orthostatic hypotension continued on midodrine. For history of L2 vertebral fracture was continued on pain control. For hyperlipidemia continued on statin. For depression continue sertraline. Overall patient is feeling better and he will be discharged home. Time Attestation Discharge Coordination Time (in mins): 33 Quality: Safe Use of Opioids Does Pt have an Active Cancer Diagnosis on the Problem List?: No Quality: Stroke Does the patient have a stroke diagnosis?: No Physical Exam Exam: Exam: Appearance: Alert.? Oriented X3. cvs: rrr, [id number] . res: clear to auscultation ,no rhonchii or wheezing abd: no rebound or guarding ,nt, bs present. ext pulses present , no cyanosis. neuro: axo3 , nonfocal Vital Signs: Vital Signs: Last Vital Signs Temp 98.4 F 10/01/25 11:47 Pulse 79 10/01/25 11:47 Resp 14 10/01/25 11:47 BP 131/73 10/01/25 11:47 Pulse Ox 96 10/01/25 11:47 O2 Del Method Room Air 10/01/25 11:47 O2 Flow Rate 6 09/24/25 14:55 BMI result Body Mass Index 32.1 DS: Data Data Completed and Pending Completed studies during hospitalization [Text1]: Procedures Detoxification Services for Substance Abuse Treatment (06/29/24) Repair Scalp Skin, External Approach (06/29/24) Labs on day of discharge: Laboratory Results - last 24 hr 10/01/25 10/01/25 05:50 05:51 WBC 8.3 RBC 3.57 L Hgb 10.7 L Hct 33.2 L MCV 93.0 MCH 30.0 MCHC 32.2 RDW 14.8 Plt Count 218 D MPV 10.0 Absolute Nucleated RBC 0.000 Nucleated RBC % (auto) 0.0 Sodium 141 Potassium 4.6 Chloride 114 H Carbon Dioxide 19 L Anion Gap 13 BUN 55 H Creatinine 2.60 H Estim Creat Clear Calc 30.6 Estimated GFR 24 Random Glucose 86 Calcium 8.8 Discharge Plan Discharge Anticipated Discharge Date/Time: 10/01/25 11:57 Patient Disposition: Home, Self-Care Discharge Diagnosis: giovanny, kidney stone Referrals: Justyn Moscoso MD [Physician, Critical Care ([facility])] - 1 Week Po,Jennifer Early MD [Primary Care Provider, Internal Medicine] - 1 Week Discharge Medications: New allopurinol 100 mg Tablet 200 mg PO DAILY 90 Days Qty: 180 0RF sodium bicarbonate 650 mg Tablet 650 mg PO TID 90 Days Qty: 270 0RF prednisone 20 mg tablet 20 mg PO DAILY Qty: 5 0RF Continued simvastatin 5 mg tablet 5 mg PO BEDTIME Qty: 30 4RF sertraline 25 mg tablet 25 mg PO DAILY Qty: 90 2RF folic acid 1 mg tablet 1 mg PO DAILY Qty: 30 3RF midodrine 2.5 mg tablet 2.5 mg PO TID PRN (Reason: hypotension) Qty: 90 3RF oxycodone-acetaminophen [Percocet] 5-325 mg tablet 1 tab PO BID PRN (Reason: pain) 30 Days Qty: 60 0RF Rx Instructions: Partial Fill upon patient request. Multaq 400 mg tablet 400 mg PO BID Qty: 180 3RF gabapentin 300 mg capsule 300 mg PO BEDTIME 90 Days Qty: 90 1RF nystatin 100,000 unit/gram powder 1 appl topical DAILY PRN (Reason: Skin Irritation) Rx Instructions: apply to ileostomy site topical 2 times a day; aspirin 81 mg Tablet,Chewable 81 mg PO DAILY Qty: 30 0RF cyanocobalamin (vitamin B-12) 1,000 mcg Tablet 1,000 mcg PO DAILY (DME) hiren Misc See Rx Instructions .Route Qty: 1 0RF Rx Instructions: As directed milk thistle 150 mg Capsule 300 mg PO DAILY Rx Instructions: give with meal/snack calcium carbonate-vitamin D3 [Calcium 600 + D(3)] 600 mg(1,500mg) -200 unit tablet 1 tab PO DAILY pyridoxine (vitamin B6) 100 mg tablet 100 mg PO DAILY 90 Days Qty: 90 3RF potassium citrate 10 mEq (1,080 mg) tablet extended release 20 meq PO DAILY@1700 90 Days Qty: 180 3RF finasteride 5 mg tablet 5 mg PO DAILY 90 Days Qty: 90 3RF Discharge Orders: Discharge Order (Routine); Ordered 10/01/25 Ordered By: Matthieu Hutton Diet: Advance to usual diet Activity on Discharge: As tolerated Stand Alone Forms: Patient Portal Discharge page Print Language: Greek Care Plan Goals: recovery Health Concerns: nephrolithiasis, giovanny Plan of Treatment: 5 days prednisone for gout, follow up with kidney doctor starting oral bicarb starting allopurinol Assessment: see above
--- NOTE | 2025-10-01 13:06 | MHC.CM.PN ---
PT CLEARED TO DC HOME TODAY WITH NO SERVICES SPOUSE TO TRANSPORT
== END 2025-10-01 14:21 | disposition home or self-care (01) | DRG 659 ==
LOC: HO.ED 22:09 → HO.EDOVER 22:44 → HO.S3 09-24 00:47
PROVIDERS: Internal Medicine; Internal Medicine Critical Care Medicine; Physician Assistant; Urology; Admitting Provider Internal Medicine; Emergency Provider Emergency Medicine; PCP Internal Medicine; Visit Provider Internal Medicine
PROC: 0T778DZ Dilation of Left Ureter with Intraluminal Device, Via Natural or Artificial Opening Endoscopic (ICD-10-PCS; principal; 2025-09-24 12:30)
DX: N13.2 Hydronephrosis with renal and ureteral calculous obstruction (principal); D66 Hereditary factor VIII deficiency; I48.92 Unspecified atrial flutter; K50.90 Crohn's disease, unspecified, without complications; I95.1 Orthostatic hypotension; E78.5 Hyperlipidemia, unspecified; N18.32 Chronic kidney disease, stage 3b; K43.5 Parastomal hernia without obstruction or gangrene; F32.A Depression, unspecified; N40.0 Benign prostatic hyperplasia without lower urinary tract symptoms; M10.9 Gout, unspecified; D63.1 Anemia in chronic kidney disease; R31.0 Gross hematuria; M54.9 Dorsalgia, unspecified; G89.29 Other chronic pain; Z79.82 Long term (current) use of aspirin; Z79.899 Other long term (current) drug therapy
CPT/HCPCS: 36415; 72148; 73562; 73630; 74176; 76775; 80048; 80053; 80076; 81001; 82803; 83036; 83690; 84550; 85014; 85018; 85025; 85027; 85240; 85730; 85999; 87086; 93005; 97161; 99285; C1758; C1769; C2617; J0131; J0696; J0737; J1171; J1956; J2003; J2151; J2270; J2371; J2704; J3010; J7120; Q9967

== ENCOUNTER → 2025-09-23 17:22 | Outpatient (BNV) | payer MEDICARE, BC, SELFPAY | PROVIDERS: Admitting Provider Internal Medicine; Emergency Provider Emergency Medicine; PCP Internal Medicine; Visit Provider Internal Medicine Cardiovascular Disease | DX: I49.3 Ventricular premature depolarization (principal); I45.10 Unspecified right bundle-branch block | CPT/HCPCS: 93010 ==

== ENCOUNTER 2025-09-23 22:40 | Outpatient (BNV) | payer MEDICARE, BC, SELFPAY | END 2025-09-27 11:40 | PROVIDERS: Admitting Provider Internal Medicine; Emergency Provider Emergency Medicine; PCP Internal Medicine; Visit Provider Specialist | DX: K80.20 Calculus of gallbladder without cholecystitis without obstruction (principal); Z96.0 Presence of urogenital implants | CPT/HCPCS: 73562; 73630; 74176 ==

== ENCOUNTER 2025-09-23 22:40 | Outpatient (BNV) | payer MEDICARE, BC, SELFPAY | END 2025-09-26 13:22 | PROVIDERS: Admitting Provider Internal Medicine; Emergency Provider Emergency Medicine; PCP Internal Medicine; Visit Provider Radiology Diagnostic Radiology | DX: N17.9 Acute kidney failure, unspecified (principal); N20.0 Calculus of kidney; N28.1 Cyst of kidney, acquired | CPT/HCPCS: 76775 ==

== ENCOUNTER → 2025-09-23 22:40 | Outpatient (BNV) | payer MEDICARE, BC, SELFPAY | PROVIDERS: Admitting Provider Internal Medicine; Emergency Provider Emergency Medicine; PCP Internal Medicine; Visit Provider Urology | DX: N20.0 Calculus of kidney (principal) | CPT/HCPCS: 99223 ==

== ENCOUNTER → 2025-09-23 22:40 | Outpatient (BNV) | payer MEDICARE, BC, SELFPAY | PROVIDERS: Admitting Provider Internal Medicine; Emergency Provider Emergency Medicine; PCP Internal Medicine; Visit Provider Internal Medicine Critical Care Medicine | DX: N17.9 Acute kidney failure, unspecified (principal); N18.9 Chronic kidney disease, unspecified; N20.1 Calculus of ureter | CPT/HCPCS: 99223; 99233 ==

== ENCOUNTER → 2025-09-23 22:40 | Outpatient (BNV) | payer MEDICARE, BC, SELFPAY | PROVIDERS: Admitting Provider Internal Medicine; Emergency Provider Emergency Medicine; PCP Internal Medicine; Visit Provider Internal Medicine | DX: D66 Hereditary factor VIII deficiency (principal); N20.1 Calculus of ureter; N13.2 Hydronephrosis with renal and ureteral calculous obstruction | CPT/HCPCS: 99223; 99232; 99499 ==

== ENCOUNTER → 2025-09-23 22:40 | Outpatient (BNV) | payer MEDICARE, BC, SELFPAY | PROVIDERS: Admitting Provider Internal Medicine; Emergency Provider Emergency Medicine; PCP Internal Medicine; Visit Provider Internal Medicine | DX: D66 Hereditary factor VIII deficiency (principal) | CPT/HCPCS: 99222 ==